=== PATIENT | female | born 1955 | race Caucasian/White ===

== ENCOUNTER 2017-07-04 11:39 | Emergency (ER) | payer OTHER, SELFPAY ==
[2017-07-04 11:40] VITALS: BP 136/66; PULSE 75; RESP 20; TEMP 37.3; O2SAT 91; BMI 23.8
--- NOTE | 2017-07-04 11:58 | HMH.EDGENADL ---
ED Disposition Clinical Impression: Left lower lobe pneumonia, Tobacco use, Lung nodule seen on imaging study Disposition: Home, Self-Care Condition on Discharge: Fair Additional Instructions: I discussed the underlying chest x-ray report with the patient and her daughter and she wanted to be treated at home. IMPRESSION: 1. Left lower lobe atelectasis and/or infiltrate 2. 10 mm left lower lobe nodular opacity which could be due to developing pulmonary nodule or nipple artifact. Consider follow-up with nipple markers. Considering the current clinical scenario we will start her on antibiotics for left lower, in addition to influenza prophylaxis because of her exposure to 1 of the sick grandchildren who was confirmed by test. She is to follow-up with her primary care physician Ed morin and 1-2 days. Return if she is not feeling better or worse. She will need 3-4 follow-up chest x-ray until until resolution or undergoes a CT scan for malignancy workup. 1- ceftin 2- z pack 3- tamiflu 4- alternate motrin and tylenol for body aches. 5- see ed in 1-2 days for a recheck. 6- return if not better or worse. 7- I gave thema copy of the CXR that needs follow up. 8- supportive care, rest and plenty of fluids. Prescriptions: Azithromycin [Zithromax 250mg tab] 250 mg PO DIRECTED #6 tab cefUROXime axetil [Ceftin 250mg Tablet] 500 mg PO BID #20 tab Oseltamivir Phosphate [Tamiflu 75mg Capsule] 75 mg PO BID #10 cap Referrals: Ed Morin PA [Primary Care Provider] - - Critical Care Critical Care Time: No Attestation: On , the high probability of a clinically significant, sudden or life threatening deterioration of the following system(s) required my full and direct attention, intervention and personal management. The time I documented below is in addition to time spent performing reported procedures but includes the following listed in this critical care notation. Medical Decision Making - Medical Records Medical records reviewed: Yes: I reviewed the patient's medical records. Vital Signs: 07/04/17 11:40 Temperature 99.1 F Temperature Source Oral Pulse Rate [Right Radial] 75 Respiratory Rate 20 Blood Pressure [Right Arm] 136/66 Blood Pressure Mean [Right Arm] 89 Blood Pressure Source [Right Arm] Automatic Cuff Blood Pressure Position [Right Arm] Supine 02 Sat by Pulse Oximetry 91 L Oxygen Delivery Method Room Air - Lab Data Lab results reviewed: Yes: I reviewed the patient's lab results. Lab Results 07/04/17 12:20: WBC 4.6 L, RBC 4.80, Hgb 14.6, Hct 44.0, MCV 91.6, MCH 30.4, MCHC 33.1, RDW 12.0, Plt Count 133 L, MPV 8.9, Neut % (Auto) 75.1, Lymph % (Auto) 11.7, [place] % (Auto) 11.1 H, Eos % (Auto) 0.6, Baso % (Auto) 1.4, Neut # (Auto) 3.5, Lymph # (Auto) 0.5 L, [place] # (Auto) 0.5, Eos # (Auto) 0.0, Baso # (Auto) 0.1 07/04/17 12:20: Sodium 140, Potassium 3.9, Chloride 107, Carbon Dioxide 28, Anion Gap 8.9, BUN 11, Creatinine 0.83, Estimated Creat Clear 54, Estimated GFR 69, Est GFR ( Amer) 84, Glucose 127 H, Calcium 8.7, Total Bilirubin 0.4, AST 25, ALT 38, Alkaline Phosphatase 133 H, Total Protein 7.4, Albumin 3.4, Globulin 4.0 H, Albumin/Globulin Ratio 0.9 L 07/04/17 12:20: Influenza Type A Ag Negative, Influenza Type B Ag Negative, Group A Strep Rapid Negative Result diagrams: 07/04/17 12:20 07/04/17 12:20 Orders (Tests/Meds): ED MEDICATIONS Discontinued Medications Generic Name Dose Route Start Last Admin Trade Name Nikitaq PRN Reason Stop Dose Admin Acetaminophen 500 mg 07/04/17 12:03 07/04/17 12:38 Tylenol 500mg Tablet PO 07/04/17 12:04 500 mg ONCE ONE Administration Sodium Chloride 1,000 mls @ 999 mls/hr 07/04/17 12:15 07/04/17 12:38 Sod Chloride 0.9% 1000ml Bag IV 07/04/17 13:15 999 mls/hr .Q1H1M LEONARD Administration Meclizine HCl 25 mg 07/04/17 12:03 07/04/17 12:38 Antivert 25mg Tablet PO 07/04/17 12:04 25 mg ONCE
--- NOTE | 2017-07-04 12:01 | ED_ITS ---
ED Disposition Clinical Impression: Left lower lobe pneumonia, Tobacco use, Lung nodule seen on imaging study Disposition: Home, Self-Care Condition on Discharge: Fair Additional Instructions: I discussed the underlying chest x-ray report with the patient and her daughter and she wanted to be treated at home. IMPRESSION: 1. Left lower lobe atelectasis and/or infiltrate 2. 10 mm left lower lobe nodular opacity which could be due to developing pulmonary nodule or nipple artifact. Consider follow-up with nipple markers. Considering the current clinical scenario we will start her on antibiotics for left lower, in addition to influenza prophylaxis because of her exposure to 1 of the sick grandchildren who was confirmed by test. She is to follow-up with her primary care physician Ed morin and 1-2 days. Return if she is not feeling better or worse. She will need 3-4 follow-up chest x-ray until until resolution or undergoes a CT scan for malignancy workup. 1- ceftin 2- z pack 3- tamiflu 4- alternate motrin and tylenol for body aches. 5- see ed in 1-2 days for a recheck. 6- return if not better or worse. 7- I gave thema copy of the CXR that needs follow up. 8- supportive care, rest and plenty of fluids. Prescriptions: Azithromycin [Zithromax 250mg tab] 250 mg PO DIRECTED #6 tab cefUROXime axetil [Ceftin 250mg Tablet] 500 mg PO BID #20 tab Oseltamivir Phosphate [Tamiflu 75mg Capsule] 75 mg PO BID #10 cap Referrals: Ed Morin PA [Primary Care Provider] - - Critical Care Critical Care Time: No Attestation: On , the high probability of a clinically significant, sudden or life threatening deterioration of the following system(s) required my full and direct attention, intervention and personal management. The time I documented below is in addition to time spent performing reported procedures but includes the following listed in this critical care notation. Medical Decision Making - Medical Records Medical records reviewed: Yes: I reviewed the patient's medical records. Vital Signs: 07/04/17 11:40 Temperature 99.1 F Temperature Source Oral Pulse Rate [Right Radial] 75 Respiratory Rate 20 Blood Pressure [Right Arm] 136/66 Blood Pressure Mean [Right Arm] 89 Blood Pressure Source [Right Arm] Automatic Cuff Blood Pressure Position [Right Arm] Supine 02 Sat by Pulse Oximetry 91 L Oxygen Delivery Method Room Air - Lab Data Lab results reviewed: Yes: I reviewed the patient's lab results. Lab Results 07/04/17 12:20: WBC 4.6 L, RBC 4.80, Hgb 14.6, Hct 44.0, MCV 91.6, MCH 30.4, MCHC 33.1, RDW 12.0, Plt Count 133 L, MPV 8.9, Neut % (Auto) 75.1, Lymph % (Auto ) 11.7, [place] % (Auto) 11.1 H, Eos % (Auto) 0.6, Baso % (Auto) 1.4, Neut # (Auto ) 3.5, Lymph # (Auto) 0.5 L, [place] # (Auto) 0.5, Eos # (Auto) 0.0, Baso # (Auto) 0.1 07/04/17 12:20: Sodium 140, Potassium 3.9, Chloride 107, Carbon Dioxide 28, Anion Gap 8.9, BUN 11, Creatinine 0.83, Estimated Creat Clear 54, Estimated GFR 69, Est GFR ( Amer) 84, Glucose 127 H, Calcium 8.7, Total Bilirubin 0.4, AST 25, ALT 38, Alkaline Phosphatase 133 H, Total Protein 7.4, Albumin 3.4, Globulin 4.0 H, Albumin/Globulin Ratio 0.9 L 07/04/17 12:20: Influenza Type A Ag Negative, Influenza Type B Ag Negative, Group A Strep Rapid Negative Result diagrams: 07/04/17 12:20 07/04/17 12:20 Orders (Tests/Meds): ED MEDICATIONS Disco
--- NOTE | 2017-07-04 12:03 | XR_ITS ---
XR chest 2V HISTORY: Dizziness, weakness, pneumonia ITS.REASON: dizziness ORDERING PHYSICIAN: Hellen Rose MD PATIENT AGE: 62 years COMPARISON: 02/14/2017 FINDINGS: The cardiomediastinal silhouette and pulmonary vascularity are within normal limits. Increased markings are present in the left lower lobe consistent with atelectasis and/or infiltrate. There is some nodularity noted in this region as well which could be due to developing nodule or overlying nipple artifact. Follow-up recommended.. No acute bony abnormalities. IMPRESSION: 1. Left lower lobe atelectasis and/or infiltrate 2. 10 mm left lower lobe nodular opacity which could be due to developing pulmonary nodule or nipple artifact. Consider follow-up with nipple markers.
--- NOTE | 2017-07-04 12:03 | CT_ITS ---
CT head/brain wo con HISTORY: ITS.REASON: dizziness ORDERING PHYSICIAN: Hellen Rose MD PATIENT AGE: 62 years COMPARISON: None TECHNIQUE: Axial images obtained without contrast. Brain and bone windows reviewed. FINDINGS: No midline shift, mass effect, intracranial hemorrhage, hydrocephalus, or extra-axial fluid collection is evident. The calvarium has an unremarkable appearance. No mastoid effusion. Mild mucosal thickening of the ethmoid sinuses. IMPRESSION: No acute intracranial findings.
[2017-07-04 12:42] LABS: Strep Scrn Group A (Rapid) Negative (Negative)
[2017-07-04 12:43] LABS: Basophils # 0.1 K/mm3 (0-0.2); Basophils % 1.4 % (0.1-2.0); Eosinophils % 0.6 % (0.1-12.0); Hemoglobin 14.6 g/dL (12.2-16.2); Lymphocytes # 0.5 K/mm3 (0.7-4.5); Lymphocytes % 11.7 K/mm3 (10-50); Mean Corpuscular HGB Conc 33.1 g/dL (31.8-35.4); Mean Corpuscular Hemoglobin 30.4 pg (27.0-31.2); Mean Corpuscular Volume 91.6 fl (81-99); Mean Platelet Volume 8.9 fl (7.4-10.4); Monocytes # 0.5 K/mm3 (0.1-1.0); Monocytes % 11.1 % (1.7-9.3); Neutrophils # 3.5 K/mm3 (1.8-7.8); Neutrophils % 75.1 % (37.0-80.0); Platelet Count 133 K/mm3 (142-424); White Blood Count 4.6 K/mm3 (4.8-10.8)
[2017-07-04 12:44] LABS: Alanine Aminotransferase 38 U/L (12-78); Albumin Level 3.4 gm/dL (3.4-5.0); Albumin/Globulin Ratio 0.9 (1.1-1.8); Alkaline Phosphatase 133 U/L (46-116); Anion Gap 8.9 mEq/L (5-15); Aspartate Amino Transferase 25 U/L (15-37); Bilirubin,Total 0.4 mg/dL (0.2-1.0); Blood Urea Nitrogen 11 mg/dL (7-18); Calcium 8.7 mg/dL (8.5-10.1); Carbon Dioxide 28 mmol/L (21.0-32.0); Chloride 107 mmol/L (98-107); Creatinine Clearance Estimated 54 mL/min (0-300); Creatinine,Serum 0.83 mg/dL (0.55-1.02); Estimated Glomerular Filt Rate 69 ml/min (>60); GFR (African American) 84 ML/MIN (>60); Potassium 3.9 mmoL/L (3.5-5.1); Sodium 140 mmol/L (136-145); Total Protein,Serum 7.4 gm/dL (6.4-8.2)
[2017-07-04 12:56] LABS: Glucose 127 mg/dL (74-106)
[2017-07-04 13:48] VITALS: BP 116/70; PULSE 85; RESP 22; TEMP 37; O2SAT 98
== END 2017-07-04 13:49 | disposition home or self-care (01) ==
PROVIDERS: Emergency Provider Emergency Medicine; PCP Physician Assistant
DX: J18.9 Pneumonia, unspecified organism (principal); F17.200 Nicotine dependence, unspecified, uncomplicated; R91.1 Solitary pulmonary nodule
CPT/HCPCS: 70450; 71046; 80053; 85025; 87275; 87276; 87430; 93005; 93041; 96365; 99284

== ENCOUNTER → 2017-08-02 09:16 | Outpatient (CLI) | payer OTHER, SELFPAY | PROVIDERS: PCP Physician Assistant; Visit Provider Physician Assistant ==

== ENCOUNTER → 2017-10-19 09:44 | Outpatient (CLI) | payer OTHER, SELFPAY ==
--- NOTE | 2017-10-19 09:45 | CI_ITS ---
Cerebrovascular Exam Indications: 433.10 Occlusion/stenosis of carotid artery without cerebral infarction. IMPRESSIONS 1. The bilateral vertebral arteries are patent with normal antegrade flow. 2. Study suggests less than 20% stenosis involving the right internal carotid artery. 3. Study suggests 20-49% stenosis involving the left internal carotid artery. No change from the study of 11-Aug-2016. Carotid duplex study. Complete study and Doppler flow study including spectral analysis, color and elias scale imaging. Location: Vascular laboratory. Patient status: Outpatient. Tables: Arterial flow: + +--------+--------+ Location V sys V ed + +--------+--------+ Right CCA - proximal 75.4cm/s 19.6cm/s + +--------+--------+ Right CCA - distal 67.6cm/s 20.4cm/s + +--------+--------+ Right ECA 155cm/s -------- + +--------+--------+ Right ICA - proximal 108cm/s 18.1cm/s + +--------+--------+ Right ICA - mid 60.5cm/s 14.1cm/s + +--------+--------+ Right ICA - distal 62.9cm/s 18.9cm/s + +--------+--------+ Right vertebral 36.1cm/s -------- + +--------+--------+ Left CCA - proximal 109cm/s 28.3cm/s + +--------+--------+ Left CCA - distal 106cm/s 29.9cm/s + +--------+--------+ Left ECA 163cm/s -------- + +--------+--------+ Left ICA - proximal 105cm/s 27.5cm/s + +--------+--------+ Left ICA - mid 128cm/s 24.4cm/s + +--------+--------+ Left ICA - distal 70.9cm/s 19.6cm/s + +--------+--------+ Left vertebral 44.6cm/s -------- + +--------+--------+ Velocity ratios: + + + + + + Right, V sys Right, V ed Left, V sys Left, V ed + + + + + + Max ICA/dist CCA 1.6 0.93 1.21 0.92 + + + + + + (Report amended ) Electronically signed by: Herminio Fregoso [id number]
== END ==
PROVIDERS: PCP Physician Assistant; Visit Provider Internal Medicine
DX: I73.9 Peripheral vascular disease, unspecified (principal); I25.10 Atherosclerotic heart disease of native coronary artery without angina pectoris
CPT/HCPCS: 93880

== ENCOUNTER → 2017-10-25 16:57 | Outpatient (CLI) | payer OTHER, SELFPAY | PROVIDERS: Visit Provider Nurse Practitioner Family | DX: Z79.899 Other long term (current) drug therapy (principal) | CPT/HCPCS: 80346 ==

== ENCOUNTER → 2017-10-25 17:27 | Outpatient (REF) | payer OTHER, SELFPAY ==
[2017-10-26 19:51] LABS: Amphetamine/Metha Screen,Urine Negative ng/mL (<1000); Barbiturates Screen,Urine Negative ng/mL (<200); Benzodiazepines Screen,Urine Positive ng/mL (200); Cannabinoid Screen,Urine Negative ng/mL (<50); Cocaine Screen,Urine Negative ng/g (<300); Methadone Screen,Urine Negative ng/mL (<300); Opiate Screen,Urine Negative ng/mL (<300); Phencyclidine Screen,Urine Negative ng/mL (<25)
[2017-11-14 13:03] LABS: Benzodiazepines POSITIVE
[2017-11-14 13:04] LABS: Alprazolam NEGATIVE; Clonazepam POSITIVE; Flurazepam NEGATIVE; Lorazepam NEGATIVE
[2017-11-14 13:05] LABS: Clonazepam Confirm 1296
[2017-11-14 13:08] LABS: Midazolam NEGATIVE; Temazepam NEGATIVE; Triazolam NEGATIVE
== END ==
LOC: LAB 17:27
PROVIDERS: Visit Provider Nurse Practitioner Family
DX: F41.9 Anxiety disorder, unspecified (principal); Z79.899 Other long term (current) drug therapy
CPT/HCPCS: 80305; 80346

== ENCOUNTER → 2018-01-12 13:26 | Outpatient (REF) | payer OTHER, SELFPAY ==
[2018-01-12 18:53] LABS: Amphetamine/Metha Screen,Urine Negative ng/mL (<1000); Barbiturates Screen,Urine Negative ng/mL (<200); Benzodiazepines Screen,Urine Negative ng/mL (<200); Cannabinoid Screen,Urine Negative ng/mL (<50); Cocaine Screen,Urine Negative ng/mL (<300); Methadone Screen,Urine Negative ng/mL (<300); Opiate Screen,Urine Negative ng/mL (<300); Phencyclidine Screen,Urine Negative ng/mL (<25)
== END ==
LOC: LAB 13:26
PROVIDERS: Visit Provider Nurse Practitioner Family
DX: Z79.899 Other long term (current) drug therapy (principal)
CPT/HCPCS: 80305

== ENCOUNTER → 2018-04-11 13:21 | Outpatient (CLI) | payer OTHER, SELFPAY ==
[2018-04-11 14:13] LABS: Amphetamine/Metha Screen,Urine Negative ng/mL (<1000); Barbiturates Screen,Urine Negative ng/mL (<200); Benzodiazepines Screen,Urine Negative ng/mL (<200); Cannabinoid Screen,Urine Negative ng/mL (<50); Cocaine Screen,Urine Negative ng/mL (<300); Methadone Screen,Urine Negative ng/mL (<300); Opiate Screen,Urine Negative ng/mL (<300); Phencyclidine Screen,Urine Negative ng/mL (<25)
== END ==
PROVIDERS: PCP Physician Assistant; Visit Provider Physician Assistant
DX: Z79.899 Other long term (current) drug therapy (principal)
CPT/HCPCS: 80305

== ENCOUNTER → 2018-05-22 11:48 | Outpatient (CLI) | payer OTHER, SELFPAY ==
[2018-05-22 14:17] LABS: Alanine Aminotransferase 22 U/L (12-78); Albumin Level 3.5 gm/dL (3.4-5.0); Alkaline Phosphatase 146 U/L (46-116); Anion Gap 12.9 mEq/L (5-15); Aspartate Amino Transferase 11 U/L (15-37); Bilirubin,Direct 0.1 mg/dL (0.0-0.2); Bilirubin,Indirect 0.2 mg/dL (0.0-0.9); Bilirubin,Total 0.3 mg/dL (0.2-1.0); Blood Urea Nitrogen 9 mg/dL (7-18); Calcium 9.5 mg/dL (8.5-10.1); Carbon Dioxide 29 mmol/L (21.0-32.0); Chloride 105 mmol/L (98-107); Chol/HDL Ratio 3.1 (1-3.5); Cholesterol 151 mg/dL (140-200); Creatine Kinase 53 U/L (26-192); Estimated Glomerular Filt Rate 72 ml/min (>60); GFR (African American) 88 ML/MIN (>60); Glucose 97 mg/dL (74-106); HDL Cholesterol 48 mg/dL (29-89); LDL Cholesterol 76 mg/dL (0-130); Potassium 4.9 mmoL/L (3.5-5.1); Sodium 142 mmol/L (136-145); Total Protein,Serum 7.3 gm/dL (6.4-8.2); Triglycerides 135 mg/dL (30-200); VLDL Cholesterol 27 mg/dL (0-40)
== END ==
PROVIDERS: Visit Provider Physician Assistant
DX: R91.1 Solitary pulmonary nodule (principal); E78.49 Other hyperlipidemia; F41.9 Anxiety disorder, unspecified; I10 Essential (primary) hypertension; I25.10 Atherosclerotic heart disease of native coronary artery without angina pectoris; I73.9 Peripheral vascular disease, unspecified; J43.9 Emphysema, unspecified; J44.1 Chronic obstructive pulmonary disease with (acute) exacerbation; M79.662 Pain in left lower leg; Z72.0 Tobacco use
CPT/HCPCS: 36415; 80048; 80061; 80076; 82550

== ENCOUNTER → 2018-12-18 12:46 | Outpatient (CLI) | payer OTHER, SELFPAY ==
--- NOTE | 2018-12-18 12:47 | CI_ITS ---
Cerebrovascular Exam Indications: 433.10 Occlusion/stenosis of carotid artery without cerebral infarction. IMPRESSIONS 1. The bilateral vertebral arteries are patent with normal antegrade flow. 2. Study suggests less than 20% stenosis involving the right internal carotid artery. 3. Study suggests 20-49% stenosis involving the left internal carotid artery. No change from the study of 19-Oct-2017. Carotid duplex study. Complete study and Doppler flow study including spectral analysis, color and elias scale imaging. Location: Vascular laboratory. Patient status: Outpatient. Tables: Arterial flow: + +--------+--------+ Location V sys V ed + +--------+--------+ Right CCA - proximal 79.4cm/s 13.4cm/s + +--------+--------+ Right CCA - distal 73.1cm/s 16.5cm/s + +--------+--------+ Right ECA 155cm/s -------- + +--------+--------+ Right ICA - proximal 97.4cm/s 23.6cm/s + +--------+--------+ Right ICA - mid 65.2cm/s 15.7cm/s + +--------+--------+ Right ICA - distal 67.6cm/s 20.4cm/s + +--------+--------+ Right vertebral 43.2cm/s -------- + +--------+--------+ Left CCA - proximal 117cm/s 25.9cm/s + +--------+--------+ Left CCA - distal 102cm/s 25.1cm/s + +--------+--------+ Left ECA 165cm/s -------- + +--------+--------+ Left ICA - proximal 101cm/s 26.7cm/s + +--------+--------+ Left ICA - mid 107cm/s 26.7cm/s + +--------+--------+ Left ICA - distal 91.9cm/s 27.5cm/s + +--------+--------+ Left vertebral 66cm/s -------- + +--------+--------+ Velocity ratios: + + + + + + Right, V sys Right, V ed Left, V sys Left, V ed + + + + + + Max ICA/dist CCA 1.33 1.43 1.05 1.1 + + + + + + (Report amended ) Electronically signed by: Herminio Fregoso [id number]
== END ==
PROVIDERS: PCP Physician Assistant; Visit Provider Internal Medicine
DX: I65.23 Occlusion and stenosis of bilateral carotid arteries (principal)
CPT/HCPCS: 93880

== ENCOUNTER → 2019-01-03 14:38 | Outpatient (CLI) | payer OTHER, SELFPAY ==
[2019-01-03 15:38] LABS: Anion Gap 12.6 mEq/L (5-15); Blood Urea Nitrogen 15 mg/dL (7-18); Calcium 9.9 mg/dL (8.5-10.1); Carbon Dioxide 30 mmol/L (21.0-32.0); Chloride 102 mmol/L (98-107); Creatinine,Serum 1.03 mg/dL (0.55-1.02); Estimated Glomerular Filt Rate 54 ml/min (>60); GFR (African American) 65 ML/MIN (>60); Glucose 100 mg/dL (74-106); Potassium 4.6 mmoL/L (3.5-5.1); Sodium 140 mmol/L (136-145)
== END ==
PROVIDERS: Visit Provider Internal Medicine Cardiovascular Disease
DX: I10 Essential (primary) hypertension (principal); E78.5 Hyperlipidemia, unspecified; F41.9 Anxiety disorder, unspecified; I25.10 Atherosclerotic heart disease of native coronary artery without angina pectoris; I73.9 Peripheral vascular disease, unspecified; J44.1 Chronic obstructive pulmonary disease with (acute) exacerbation; J44.9 Chronic obstructive pulmonary disease, unspecified; R91.1 Solitary pulmonary nodule; Z72.0 Tobacco use
CPT/HCPCS: 36415; 80048

== ENCOUNTER → 2019-01-21 14:51 | Outpatient (CLI) | payer OTHER, SELFPAY ==
--- NOTE | 2019-01-21 14:52 | US_ITS ---
PROCEDURE: US EXTREMITY LT LIMITED CLINICAL INDICATION: mass left forearm A palpable abnormality posterior left forearm COMPARISON: No exams were available for comparison FINDINGS: No sonographic abnormality detected. No cystic or solid lesion. IMPRESSION: Unremarkable ultrasound of the left forearm. If there is indeed a palpable abnormality then, MRI may be of further value. Dictated by: Herminio Fregoso MD 01/21/2019 16:09 Signed by: <Electronically signed by Herminio Fregoso MD in [place]> 01/21/2019 16:09
== END ==
PROVIDERS: PCP Emergency Medicine; Visit Provider Physician Assistant
DX: R22.32 Localized swelling, mass and lump, left upper limb (principal)
CPT/HCPCS: 76882

== ENCOUNTER → 2019-01-25 15:47 | Outpatient (CLI) | payer OTHER, SELFPAY ==
--- NOTE | 2019-01-25 15:48 | MR_ITS ---
PROCEDURE: MR FOREARM LT WO CON CLINICAL INDICATION: palable mass in left forearm COMPARISON: US EXTREMITY LT LIMITED from 01/21/2019 TECHNIQUE: Routine multiplanar multi echo sequences are performed without gadolinium enhancement. FINDINGS: No soft tissue masses. No abnormal bony lesions. No abnormal fluid collections. No subcutaneous lesions IMPRESSION: Negative MRI of the left forearm Dictated by: Herminio Fregoso MD 01/26/2019 13:28 Signed by: <Electronically signed by Herminio Fregoso MD in [place]> 01/26/2019 13:28
== END ==
PROVIDERS: PCP Physician Assistant; Visit Provider Physician Assistant
DX: R22.32 Localized swelling, mass and lump, left upper limb (principal)
CPT/HCPCS: 73218

== ENCOUNTER → 2019-05-08 10:47 | Outpatient (CLI) | payer OTHER, SELFPAY ==
--- NOTE | 2019-05-08 10:48 | CA_ITS ---
APPROVED REPORT EXAM: Comprehensive 2D, Doppler, and color-flow Echocardiogram Vp Human Resources: Lisette Luther RT(R) Ht: 5 ft 2 in Wt: 138lbs BSA: 1.63 BP: 136/88 mmHg Indications: COPD, Smoker, HTN, SOB, hyperlipidemia 2D Dimensions IVSd 0.78 cm F: 0.6-1.0 LVEF (Visual) 70.50 % PWd 0.68 cm F: 0.6 - 1.0 LVDd 3.21 cm F: 3.9 - 5.3 LVDs 1.97 cm F: 2.2 - 3.5 LVOT 1.88 cm (M/F) 1.5-2.5 M-Mode Dimensions LVDd 3.21 cm (3.5-5.7) LVDs 1.97 cm (3.5-5.7) IVSd 0.78 cm (0.6-1.1) PWd 0.68 cm (0.6-1.1) FS 38.60% LV Diastology E/A Ratio 0.72 Mitral Valve MV A Velocity 145.00 (40-130 cm/s) Left Ventricle Left atrium is mildly enlarged, left ventricle is normal size, mild concentric left ventricular hypertrophy, hyperdynamic left ventricular systolic function, visually estimated ejection fraction was 65% with no regional wall motion abnormality, grade 1 diastolic dysfunction seen without tissue Doppler evidence of raise left atrial pressure. Right Ventricle Right atrium and right ventricular normal size and contractility. Aortic Valve Aortic valve is minimally thickened and fibrosed. There is no aortic stenosis aortic insufficiency. Mitral Valve Mitral valve is grossly normal, there is mild mitral regurgitation. Tricuspid Valve Tricuspid valve is grossly normal, there is mild tricuspid regurgitation. Pulmonic Valve Pulmonic valve is poorly visualized. Great Vessels Aortic root is normal size. Pericardium No significant pericardial effusion noted Conclusion 1. Normal left ventricular size, mild concentric left ventricular hypertrophy, hyperdynamic left ventricular systolic function, visually estimated ejection fraction over 65% with no regional wall motion abnormality, grade 1 diastolic dysfunction seen without tissue Doppler evidence of raise left atrial pressure. 2. Mild mitral and tricuspid regurgitation. 3. No significant pericardial effusion noted. Electronically signed by : Lul Bird, 05/10/2019 13:37:25
--- NOTE | 2019-05-08 10:48 | CA_ITS ---
APPROVED REPORT Exam: Pharmacologic Technologist: steff brown, Ht: 5 ft 2 in Wt: 138 lbs BSA: 1.63 m2 HR: 106 bpm BP: 151/89 mmHg Indications: SOA Medical History Medications: Verapamil,,,,, Asa,,,,, Gabapentin,,,,, HCTZ,,,,, ClonAZEPAM,,,,, Lipitor,,,,, Albuterol,,,,, CloPIdogrel,,,,, BuspAR,,,,, BisOPROLOL,,,,, PaXIL,,,,, OmPERAZOLE,,,,, Allergies: No known drug allergies Cardiac Risk Factors: HTN, Hyperlipidemia, FHX of CAD, Smoking Stress Test Details Test: LEXISCAN HR Resting HR: 100 bpm Max Heart Rate (APMHR): 156 bpm Max HR Achieved: 123 bpm Target HR (85% APMHR): 132 bpm % of APMHR: 78 Recovery HR: 116 bpm BP Resting BP: 151/89 mmHg Max BP: 166/81 mmHg Recovery BP: 164.0/73.0 mmHg ECG Resting ECG: Sinus tach, borderline criteria for MEET Clinical Exercise duration: 04:05 min Highest Stage Achieved: Stress ECG Conclusion Symptoms: SOA, Nausea, MARQUES, Malasie. Rare PAC. No significant ST changes. Patient was given Aminophylline 100mg slow IV. Symptoms better to almost after the Aminophylline. Unremarkable Lexiscan Stress. Images reported seperately. Test Summary REST 08:24 . . 100 . 151/ 89 . . Stage 1 01:00 . . 119 . . . . Stage 2 01:00 . . 119 . 141/ 74 . . Stage 3 01:00 . . 117 . 150/ 64 . . Stage 4 01:00 . . 115 . 137/ 69 . . Stage 4 01:05 . . 115 . 164/ 73 . Stop exercise at 04:05 RECOVERY 01:00 . . 116 . . . . RECOVERY 02:00 . . 115 . 135/ 90 . . RECOVERY 03:00 . . 117 . 166/ 81 . . RECOVERY 04:00 . . 118 . 160/ 88 . . RECOVERY 05:00 . . 116 . 160/ 88 . . RECOVERY 06:00 . . 118 . 160/ 88 . . RECOVERY 07:00 . . 115 . 160/ 88 . . RECOVERY 08:00 . . 114 . 160/ 88 . . RECOVERY 08:14 . . 112 . 155/ 80 . . Electronically signed by : Lul Bird, 05/09/2019 15:53:16
--- NOTE | 2019-05-08 10:48 | NM_ITS ---
APPROVED REPORT Exam: Nuclear Stress Test Indication: SOB, Syncope, HTN, Tobacco use, Family history Patient Location: Outpatient Stress Tech: Mariana Feliz [place] Tech:Kellen Ramirez, ARRT, RT (R)(N) Ht: 5 ft 2 in Wt: 138 lbs Bra Size: 34B HR: 106 bpm BP: 151/89 mmHg BSA: 1.63 m2 BMI: 25.2 History: SOB, Syncope, HTN, Tobacco use, Family history Procedure: Patient received a 0.4 mg of intravenous Lexiscan, resting heart rate 106 bpm, resting blood pressure 151/89 mmHg, with Lexiscan maximum heart rate achived was 118 bpm which is Less than 85 % of the maximum predicted heart rate and blood pressure was 141/74 mmHg. With Lexiscan, patient denied any complaint of chest pain. Electrocardiogram Resting electro cardiogram showed sinus rhythm, with Lexiscan there is less than 1.[address] segment depression noted from the baseline EKG. The EKG portion of the Lexiscan Myoview is nondiagnostic. Cardiac Stress and Resting SPECT Images: Cardiac Stress and Resting SPECT images were obtained using technetium 99m Myoview 32.3 mCi stress and 10.40 mCi at rest. Gated SPECT with analysis of segmental wall motion and calculation of ejection fraction also done. Cardiac stress and resting SPECT images show uniform myocardial activity without segmental perfusion abnormality, computer derived ejection fraction is 65% with no regional wall motion abnormality, right ventricle is normal size and contractility. Conclusion: 1. The EKG portion of the Lexiscan Myoview is nondiagnostic. 2. No scintigraphic evidence of reversible ischemia seen, computer derived ejection fraction is 65% with no regional wall motion abnormality, right ventricle is normal size and contractility. 3. Normal Lexiscan Myoview study. Electronically signed by : Lul Bird, 05/09/2019 15:55:26
--- NOTE | 2019-05-08 12:44 | HMH.ITSHM ---
Current Home Medications as stated by this patient Johanny Hurst or sales utility representative. []VERAPAMIL GABAENTIN CLOPIDOGREL CLONAZEPAM BISOPROLOL ATORVASTATIN ALBUTEROL TRIAM/HCTZ PAXIL OMEPRAZOLE BUSPAR ASA
== END ==
PROVIDERS: PCP Physician Assistant; Visit Provider Urology
DX: I25.10 Atherosclerotic heart disease of native coronary artery without angina pectoris (principal); R00.0 Tachycardia, unspecified; R06.02 Shortness of breath; I10 Essential (primary) hypertension
CPT/HCPCS: 78452; 93017; 93306; A9502; J2785

== ENCOUNTER → 2019-10-02 16:51 | Outpatient (CLI) | payer MEDICARE, MEDICAID, SELFPAY ==
[2019-10-02 17:57] LABS: Basophils # 0.1 K/mm3 (0-0.2); Basophils % 1.2 % (0.1-2.0); Eosinophils # 0.3 K/mm3 (0.0-0.4); Eosinophils % 3.5 % (0.1-12.0); Hematocrit 45.6 % (37.0-47.0); Lymphocytes # 1.9 K/mm3 (0.7-4.5); Lymphocytes % 23.6 % (10-50); Mean Corpuscular HGB Conc 32.8 g/dL (31.8-35.4); Mean Corpuscular Hemoglobin 29.4 pg (27.0-31.2); Mean Corpuscular Volume 89.6 fl (81-99); Mean Platelet Volume 9.9 fl (7.4-10.4); Monocytes # 0.5 K/mm3 (0.1-1.0); Neutrophils # 5.2 K/mm3 (1.8-7.8); Neutrophils % 65.7 % (37.0-80.0); Platelet Count 216 K/mm3 (142-424); Red Cell Distribution Width 13.4 % (11.5-17.5)
[2019-10-02 17:59] LABS: Chloride 107 mmol/L (98-107); Sodium 139 mmol/L (136-145)
[2019-10-02 18:01] LABS: Alanine Aminotransferase 23 U/L (12-78); Alkaline Phosphatase 120 U/L (38-126); Aspartate Amino Transferase 27 U/L (14-36); Bilirubin,Total 0.5 mg/dl (0.2-1.3); Blood Urea Nitrogen 15 mg/dl (7-17); Estimated Glomerular Filt Rate 84 ml/min (>60); GFR (African American) 102 ML/MIN (>60)
[2019-10-02 18:02] LABS: Albumin/Globulin Ratio 1.3 (1.1-1.8); Calcium 9.6 mg/dl (8.4-10.2); Carbon Dioxide 22 mmol/L (22.0-30.0); Chol/HDL Ratio 2.3 (1-3.5); Cholesterol 153 mg/dl (140-200); Glucose 107 mg/dl (74-100); HDL Cholesterol 67 mg/dl (40-60); Triglycerides 123 mg/dl (30-150); VLDL Cholesterol 25 mg/dL (0-40)
[2019-10-02 18:14] LABS: Direct LDL Cholesterol 89.94 mg/dL (100-129)
[2019-10-02 18:20] LABS: T4 (Thyroxine) 13.3 ug/dl (5.53-11.0)
[2019-10-02 18:33] LABS: Thyroid Stimulating Hormone 1.96 uIU/mL (0.465-4.68)
[2019-10-04 09:24] LABS: Vitamin D 25 Hydroxy 16.8 ng/mL (30.0-100.0)
== END ==
LOC: LAB 16:52 → LAB.DROPOF 10-03 08:11
PROVIDERS: Visit Provider Physician Assistant
DX: I10 Essential (primary) hypertension (principal); E55.9 Vitamin D deficiency, unspecified
CPT/HCPCS: 80053; 80061; 82652; 84436; 84443; 85025

== ENCOUNTER → 2020-02-20 08:58 | Outpatient (CLI) | payer MEDICARE, MEDICAID, SELFPAY ==
--- NOTE | 2020-02-20 | CA_ITS ---
APPROVED REPORT Shuttle Van Driver: JOHN Laterality: Bilateral Indications: DEVYN Risk Factors Hypertension: Hyperlipidemia Smoking Doppler Spectral Velocity Analysis ECA (R) 168.50/18.10 cm/s ECA (L) 160.00/24.50 cm/s dICA (R) 92.50/25.00 cm/s dICA (L) 87.40/26.50 cm/s Bianka (R) 79.90/24.10 cm/s Bianka (L) 121.70/22.60 cm/s pICA (R) 122.30/32.70 cm/s pICA (L) 133.50/23.60 cm/s dCCA (R) 100.20/17.30 cm/s dCCA (L) 107.00/24.50 cm/s pCCA (R) 125.00/22.40 cm/s pCCA (L) 109.90/19.60 cm/s Vert (R) 32.20/7.50 cm/s Vert (L) 69.70/13.70 cm/s ICA/CCA 1.22 ICA/CCA 1.25 Findings Duplex evaluation demonstrates stenosis of the right proximal internal carotid artery <20% with PSV <140 cm/sec, EDV <100 cm/sec, and IC/CC Ratio <4.0. Duplex evaluation demonstrates stenosis of the left proximal internal carotid artery in the range of 20-49%(upper end of range) with PSV <140 cm/sec, EDV <100 cm/sec, and IC/CC Ratio <4.0. Conclusion Duplex evaluation demonstrates stenosis of the right proximal internal carotid artery <20% with PSV <140 cm/sec, EDV <100 cm/sec, and IC/CC Ratio <4.0. Duplex evaluation demonstrates stenosis of the left proximal internal carotid artery in the range of 20-49%(upper end of range) with PSV <140 cm/sec, EDV <100 cm/sec, and IC/CC Ratio <4.0. Electronically signed by : Herminio Fregoso MD 02/20/2020 16:09:25
== END ==
PROVIDERS: PCP Physician Assistant; Visit Provider Urology
DX: I65.23 Occlusion and stenosis of bilateral carotid arteries (principal)
CPT/HCPCS: 93880

== ENCOUNTER → 2020-03-13 18:40 | Outpatient (CLI) | payer MEDICARE, MEDICAID, SELFPAY | PROVIDERS: Visit Provider Emergency Medicine | DX: N39.0 Urinary tract infection, site not specified (principal) | CPT/HCPCS: 87086; 87088; 87186 ==

== ENCOUNTER → 2020-04-13 11:01 | Outpatient (CLI) | payer MEDICARE, MEDICAID, SELFPAY ==
--- NOTE | 2020-04-13 11:01 | US_ITS ---
PROCEDURE: US TRANSVAGINAL CLINICAL INDICATION: RLQ/pelvic pain COMPARISON: No exams were available for comparison FINDINGS: The uterus is 4.2 x 2 cm. Combined endometrial thickness is 2 mm. No uterine mass evident. The right ovary is 16 x 10 mm. Left ovary is 15 x 13 mm. No adnexal mass. No cul-de-sac fluid. IMPRESSION: Negative pelvic ultrasound Dictated by: Herminio Fregoso MD 04/13/2020 19:24 Herminio Fregoso MD in [place] 04/13/2020 19:24
== END ==
PROVIDERS: PCP Physician Assistant; Visit Provider Physician Assistant
DX: R10.2 Pelvic and perineal pain (principal)
CPT/HCPCS: 76830

== ENCOUNTER → 2020-08-24 12:51 | Outpatient (CLI) | payer MEDICARE, MEDICAID, SELFPAY ==
--- NOTE | 2020-08-24 | CA_ITS ---
APPROVED REPORT It Quality Analyst: OLLIE Laterality: Bilateral Study Quality: Good Risk Factors Hypertension: Smoking Doppler Spectral Velocity Analysis ECA (R) 170.00/21.40 cm/s ECA (L) 180.10/34.70 cm/s dICA (R) 80.50/22.30 cm/s dICA (L) 94.40/19.30 cm/s Bianka (R) 108.00/24.60 cm/s Bianka (L) 90.50/21.20 cm/s pICA (R) 113.00/27.70 cm/s pICA (L) 138.70/22.20 cm/s dCCA (R) 92.80/13.50 cm/s dCCA (L) 103.70/20.60 cm/s pCCA (R) 93.50/12.00 cm/s pCCA (L) 130.20/22.30 cm/s Vert (R) 48.00/14.60 cm/s Vert (L) 90.50/27.00 cm/s ICA/CCA 1.22 ICA/CCA 1.34 Findings Duplex evaluation demonstrates stenosis of the right proximal internal carotid artery <20% with PSV <140 cm/sec, EDV <100 cm/sec, and IC/CC Ratio <4.0.Duplex evaluation demonstrates stenosis of the left proximal internal carotid artery in the range of 20-49% with PSV <140 cm/sec, EDV <100 cm/sec, and IC/CC Ratio <4.0. Bilateral vertebral arteries displayed antegrade flow. Conclusion Duplex evaluation demonstrates stenosis of the right proximal internal carotid artery <20% with PSV <140 cm/sec, EDV <100 cm/sec, and IC/CC Ratio <4.0.Duplex evaluation demonstrates stenosis of the left proximal internal carotid artery in the range of 20-49% with PSV <140 cm/sec, EDV <100 cm/sec, and IC/CC Ratio <4.0. Bilateral vertebral arteries displayed antegrade flow. Electronically signed by : Herminio Fregoso MD 08/24/2020 15:58:49
== END ==
PROVIDERS: PCP Physician Assistant; Visit Provider Urology
DX: I65.23 Occlusion and stenosis of bilateral carotid arteries (principal)
CPT/HCPCS: 93880

== ENCOUNTER 2020-08-28 04:27 | Emergency (ER) | payer MEDICARE, MEDICAID, SELFPAY ==
[2020-08-28 04:48] VITALS: BP 207/146; PULSE 98; RESP 18; TEMP 36.7; O2SAT 95; BMI 24.1
--- NOTE | 2020-08-28 04:55 | CT_ITS ---
PROCEDURE: CT ABDOMEN PELVIS W CON CLINICAL INDICATION: abdominal pain Cramping abdominal pain in the mid lower abdomen COMPARISON: CT ABDPELW/O CT ABD PELVIS W/O CONTRAST from 11/27/2014 TECHNIQUE: IV Contrast: 75ML Isovue 370 Oral Contrast None Axial images obtained with sagittal and coronal reformats. All CT scans at the facility use one or more dose reduction, viz: automated exposure control, ma/kV adjustment per patient size (including targeted exams where dose is matched to indication, i.e. head), or iterative reconstruction technique. FINDINGS: LOWER THORAX: There are atelectatic changes in the lingula and right middle lobe. ABDOMEN & PELVIS: Liver, gallbladder, spleen, adrenal glands, and pancreas has an unremarkable appearance. The right kidney is unremarkable. There is a 3 mm stone in the left distal ureter at the ureterovesical junction. There is mild to moderate dilatation of the left renal pelvis and ureter. Small amount fluid is present in the perinephric region on the left with mild stranding of the fat. The left kidney has an edematous appearance. Unremarkable appendix. There is colonic diverticulosis. No evidence of diverticulitis. Mild amount of retained colonic feces. Bilateral iliac artery stents are noted. No acute bony findings. IMPRESSION: 1. 3 mm left ureterovesical junction stone with left-sided obstructive uropathy. The left kidney appears edematous with a small amount of perinephric fluid and stranding of the fat which could be related to superimposed infection. 2. Colonic diverticulosis without diverticulitis Dictated by: Herminio Fregoso MD 08/28/2020 06:19 Herminio Fergoso MD in [facility] 08/28/2020 06:19
[2020-08-28 05:00] VITALS: BP 194/96; PULSE 100; O2SAT 94
[2020-08-28 05:15] VITALS: PULSE 96; O2SAT 94
[2020-08-28 05:23] LABS: Basophils # 0.1 K/mm3 (0-0.2); Eosinophils # 0.3 K/mm3 (0.0-0.4); Eosinophils % 2.5 % (0.1-12.0); Hematocrit 47.4 % (37.0-47.0); Hemoglobin 15.8 g/dL (12.2-16.2); Lymphocytes # 1.9 K/mm3 (0.7-4.5); Lymphocytes % 17.6 % (10-50); Mean Corpuscular HGB Conc 33.3 g/dL (31.8-35.4); Mean Corpuscular Hemoglobin 30.2 pg (27.0-31.2); Mean Corpuscular Volume 90.8 fl (81-99); Mean Platelet Volume 8.5 fl (7.4-10.4); Monocytes # 0.6 K/mm3 (0.1-1.0); Neutrophils # 7.6 K/mm3 (1.8-7.8); Neutrophils % 72.8 % (37.0-80.0); Platelet Count 227 K/mm3 (142-424); Red Blood Count 5.22 M/mm3 (4.20-5.40); Red Cell Distribution Width 12.3 % (11.5-17.5); White Blood Count 10.5 K/mm3 (4.8-10.8)
[2020-08-28 05:29] LABS: Alanine Aminotransferase 19 U/L (12-78); Albumin Level 4.3 g/dl (3.5-5.0); Alkaline Phosphatase 128 U/L (38-126); Amylase 45 U/L (30-110); Aspartate Amino Transferase 24 U/L (14-36); Bilirubin,Indirect 0.4 mg/dL (0.0-0.9); Bilirubin,Total 0.4 mg/dl (0.2-1.3); Bilirubin,Unconjugated 0.4 mg/dL (0.0-1.1); Blood Urea Nitrogen 13 mg/dl (7-17); Calcium 9.7 mg/dl (8.4-10.2); Carbon Dioxide 22 mmol/L (22.0-30.0); Chloride 108 mmol/L (98-107); Creatinine Clearance Estimated 52 mL/min (50-200); Estimated Glomerular Filt Rate 63 ml/min (>60); GFR (African American) 76 ML/MIN (>60); Glucose 128 mg/dl (74-100); Lipase 51 U/L (23-300); Sodium 139 mmol/L (136-145); Total Protein,Serum 7.6 g/dl (6.3-8.2)
[2020-08-28 05:30] VITALS: BP 182/99; PULSE 98; O2SAT 95
[2020-08-28 05:36] LABS: C-Reactive Protein 2.7 mg/L (0-4)
[2020-08-28 05:46] LABS: Erythrocyte Sedimentation Rate 17 mm/hr (0-30)
[2020-08-28 05:48] LABS: Procalcitonin 0.053 ng/mL (0.0-2.0)
[2020-08-28 06:30] VITALS: BP 171/77; PULSE 94; RESP 17; O2SAT 96
[2020-08-28 06:38] LABS: Microscopic, Urine URINE MICROSCOPIC (MICROSCOPIC)
--- NOTE | 2020-08-28 06:50 | HMH.EDNVD ---
ED Disposition Clinical Impression: Renal colic on left side, Anxiety HTN (hypertension) Qualifiers: Hypertension type: essential hypertension Qualified Code(s): I10 - Essential (primary) hypertension Disposition: Home, Self-Care Condition on Discharge: Good Instructions: DI for Kidney Stones Additional Instructions: fluids and see pcp and urology for follow up Prescriptions: Tamsulosin HCl [Flomax 0.4mg capsule] 0.4 mg PO HS #10 cap Transmission Status: Pending to [facility] Referrals: Stephy Morin PA [Primary Care Provider] - Danny Cain MD [Staff Physician] - - Critical Care Critical Care Time: No Attestation: On 08/28/20, the high probability of a clinically significant, sudden or life threatening deterioration of the following system(s) required my full and direct attention, intervention and personal management. The time I documented below is in addition to time spent performing reported procedures but includes the following listed in this critical care notation. Medical Decision Making - Medical Records Medical records reviewed: Yes: I reviewed the patient's medical records. - Aquilino Inquiry Pt receiving controlled substance: No Vital Signs: 08/28/20 04:48 08/28/20 05:00 08/28/20 05:15 Temperature 98.0 F Temperature Source Oral Pulse Rate 100 H 96 H Pulse Rate [Right Brachial] 98 H Respiratory Rate 18 Blood Pressure 194/96 H Blood Pressure [Right Arm] 207/146 H Blood Pressure Mean 149 Blood Pressure Mean [Right Arm] 166 Blood Pressure Source [Right Arm] Automatic Cuff Blood Pressure Position [Right Arm] Sitting 02 Sat by Pulse Oximetry 95 94 L 94 L Oxygen Delivery Method Room Air 08/28/20 05:30 08/28/20 06:30 Temperature Temperature Source Pulse Rate 98 H 94 H Pulse Rate [Right Brachial] Respiratory Rate 17 Blood Pressure 182/99 H 171/77 H Blood Pressure [Right Arm] Blood Pressure Mean 126 108 Blood Pressure Mean [Right Arm] Blood Pressure Source [Right Arm] Blood Pressure Position [Right Arm] 02 Sat by Pulse Oximetry 95 96 Oxygen Delivery Method - Lab Data Lab results reviewed: Yes: I reviewed the patient's lab results. Lab Results 08/28/20 04:50: WBC 10.5, RBC 5.22, Hgb 15.8, Hct 47.4 H, MCV 90.8, MCH 30.2, MCHC 33.3, RDW 12.3, Plt Count 227, MPV 8.5, Neut % (Auto) 72.8, Lymph % (Auto) 17.6, [place] % (Auto) 6.0, Eos % (Auto) 2.5, Baso % (Auto) 1.0, Neut # (Auto) 7.6, Lymph # (Auto) 1.9, [place] # (Auto) 0.6, Eos # (Auto) 0.3, Baso # (Auto) 0.1, ESR 17 08/28/20 04:50: Sodium 139, Potassium 4.0, Chloride 108 H, Carbon Dioxide 22, Anion Gap 13.0, BUN 13, Creatinine 0.90, Estimated Creat Clear 52, Estimated GFR 63, Est GFR ( Amer) 76, Glucose 128 H, Calcium 9.7, Total Bilirubin 0.4, Direct Bilirubin 0.0, Conjugated Bilirubin 0.0, Indirect Bilirubin 0.4, Unconjugated Bilirubin 0.4, AST 24, ALT 19, Alkaline Phosphatase 128 H, C-Reactive Protein 2.7, Total Protein 7.6, Albumin 4.3, Amylase 45, Lipase 51, Procalcitonin 0.053 08/28/20 04:50: Lactate 1.0 08/28/20 05:30: Urine Color Yellow, Urine Appearance Sl cloudy, Urine pH 6.5, Ur Specific [place] <= 1.005, Urine Protein Trace, Urine Glucose (UA) Negative, Urine Ketones Negative, Urine Blood 3+, Urine Nitrate Negative, Urine Bilirubin Negative, Urine Urobilinogen 0.2, Ur Leukocyte Esterase Trace, Urine RBC 10-20, Urine WBC 3-5, Ur Squamous Epith Cells Occasional, Urine Bacteria 1+ Result diagrams: 08/28/20 04:50 08/28/20 04:50 Orders (Tests/Meds): ED MEDICATIONS Generic Name Dose Route Start Last Admin Trade Name Freq PRN Reason Stop Dose Admin Sodium Chloride 1,000 mls @ 999 mls/hr 08/28/20 05:00 08/28/20 05:01 Sod Chlor 0.9% 1000ml Bag IV 08/28/20 06:00 999 mls/hr .[id number] LEONARD Administration Discontinued Medications Generic Name Dose Route Start Last Admin Trade Name Freq PRN Reason Stop Dose Admin Iopamidol 75 ml 08/28/20 05:58 08/28/
[2020-08-28 07:03] LABS: Appearance,Urine SL CLOUDY (Clear); Bilirubin,Urine Negative (Negative); Blood, Urine 3+ (Negative); Color,Urine YELLOW (Yellow); Glucose,Urine (UA) Negative (Negative); Ketones,Urine Negative (Negative); Leukocyte Esterase,Urine TRACE (Negative); Nitrate,Urine Negative (Negative); PH,Urine 6.5 (5.0-8.5); Protein,Urine TRACE (Negative); Specific Gravity, Urine <= 1.005 (1.005-1.030); Urobilinogen,Urine 0.2 EU/dl (0.2)
[2020-08-28 07:09] LABS: Bacteria,Urine 1+ /lpf; Squamous Epithelial Cell,Urine Occasional #/hpf (0-5)
[2020-08-28 07:21] VITALS: BP 171/77; PULSE 94; RESP 16; TEMP 36.6; O2SAT 96
== END 2020-08-28 07:42 | disposition home or self-care (01) ==
PROVIDERS: Emergency Provider Emergency Medicine; PCP Physician Assistant
DX: N23 Unspecified renal colic (principal); I10 Essential (primary) hypertension; F41.8 Other specified anxiety disorders; J44.9 Chronic obstructive pulmonary disease, unspecified; I25.10 Atherosclerotic heart disease of native coronary artery without angina pectoris; E78.5 Hyperlipidemia, unspecified; Z79.899 Other long term (current) drug therapy
CPT/HCPCS: 74177; 80048; 80076; 81001; 82150; 83605; 83690; 84145; 85025; 85651; 86140; 87040; 87086; 96365; 99283; Q9967

== ENCOUNTER 2021-04-30 16:10 | Emergency (ER) | payer MEDICARE, MEDICAID, SELFPAY ==
[2021-04-30] VITALS (8 sets, daily range): BP systolic 175–213; BP diastolic 91–109; PULSE 79–99; RESP 15–33; TEMP 36.5–37; O2SAT 92–98; BMI 21.9
--- NOTE | 2021-04-30 16:08 | ECG_ITS ---
APPROVED REPORT Exam: Resting ECG HR:101 bpm ECG Measurements Heart Rate [address] 136 P 84 QRSd 76 QRS 85 QT 360 T 74 QTc 466 Conclusion Sinus tachycardia Right atrial enlargement Borderline ECG Electronically signed by : Edgard Dasilva MD 05/01/2021 10:02:05
--- NOTE | 2021-04-30 16:16 | HMH.EDGENADL ---
ED Disposition Clinical Impression: Anxiety state, Uncontrolled hypertension Disposition: Home, Self-Care Condition on Discharge: Good Additional Instructions: Take your medications as prescribed. Call your primary care provider on Monday to be seen as soon as possible. Return to the emergency department if symptoms worsen. Referrals: Provider,Referral, [Primary Care Provider] - - Critical Care Critical Care Time: No Attestation: On , the high probability of a clinically significant, sudden or life threatening deterioration of the following system(s) required my full and direct attention, intervention and personal management. The time I documented below is in addition to time spent performing reported procedures but includes the following listed in this critical care notation. Medical Decision Making - Aquilino Inquiry Pt receiving controlled substance: Yes Aquilino was queried for this patient: Yes Risks and benefits of using a controlled substance: were discussed with pt by me Comment: Filled a 30-day supply for Ativan on 04/09/2021. Vital Signs: 04/30/21 16:11 04/30/21 16:36 04/30/21 16:56 Temperature 97.7 F Temperature Source Oral Pulse Rate 92 H 90 Pulse Rate [Apical] 94 H Respiratory Rate 20 24 24 Blood Pressure 207/102 H 202/109 H Blood Pressure [Left Arm] 213/104 H Blood Pressure Mean [Left Arm] 140 Blood Pressure Source [Left Arm] Automatic Cuff Blood Pressure Position [Left Arm] Sitting 02 Sat by Pulse Oximetry 95 96 96 Oxygen Delivery Method Room Air 04/30/21 17:00 04/30/21 17:19 04/30/21 17:30 Temperature Temperature Source Pulse Rate 91 H 85 83 Pulse Rate [Apical] Respiratory Rate 33 H 23 20 Blood Pressure 175/96 H 197/101 H 200/94 H Blood Pressure [Left Arm] Blood Pressure Mean [Left Arm] Blood Pressure Source [Left Arm] Blood Pressure Position [Left Arm] 02 Sat by Pulse Oximetry 95 94 L 92 L Oxygen Delivery Method 04/30/21 18:00 Temperature Temperature Source Pulse Rate 79 Pulse Rate [Apical] Respiratory Rate 15 Blood Pressure 184/91 H Blood Pressure [Left Arm] Blood Pressure Mean [Left Arm] Blood Pressure Source [Left Arm] Blood Pressure Position [Left Arm] 02 Sat by Pulse Oximetry 95 Oxygen Delivery Method - Lab Data Lab Results 04/30/21 16:25: WBC 6.9, RBC 5.36, Hgb 16.0, Hct 46.7, MCV 87.1, MCH 29.8, MCHC 34.2, RDW 13.5, Plt Count 241, MPV 9.2, Neut % (Auto) 66.3, Lymph % (Auto) 24.4, [place] % (Auto) 5.2, Eos % (Auto) 2.9, Baso % (Auto) 1.1, Neut # (Auto) 4.6, Lymph # (Auto) 1.7, [place] # (Auto) 0.4, Eos # (Auto) 0.2, Baso # (Auto) 0.1 04/30/21 16:25: Sodium 142, Potassium 4.0, Chloride 110 H, Carbon Dioxide 25, Anion Gap 11.0, BUN 13, Creatinine 0.70, Estimated Creat Clear 48, Estimated GFR 84, Est GFR ( Amer) 101, Glucose 132 H, Calcium 9.3, Total Bilirubin 0.4, AST 24, ALT 12, Alkaline Phosphatase 125, Troponin I < 0.01, Total Protein 7.3, Albumin 4.2, Globulin 3.1, Albumin/Globulin Ratio 1.4 Result diagrams: 04/30/21 16:25 04/30/21 16:25 Orders (Tests/Meds): ED MEDICATIONS Generic Name Dose Route Start Last Admin Trade Name Freq PRN Reason Stop Dose Admin Sodium Chloride 10 ml 04/30/21 16:42 04/30/21 17:20 Sodium Chloride 0.9% 10ml Vial IV 05/30/21 16:41 10 ml NEEDED PRN Administration to Dilute Lorazepam inj Discontinued Medications Generic Name Dose Route Start Last Admin Trade Name Freq PRN Reason Stop Dose Admin Lorazepam 1 mg 04/30/21 16:42 04/30/21 17:20 Lorazepam 2mg/Ml Vial IV 04/30/21 16:43 1 mg ONCE ONE Administration Metoprolol Tartrate 5 mg 04/30/21 16:42 04/30/21 17:25 Metoprolol Tartrate 5mg/5ml Vial IV 04/30/21 16:43 5 mg ONCE ONE Administration ORDERS Category Date Time Status Troponin I Q3H Lab 04/30/21 19:30 Ordered Troponin I Q3H Lab 04/30/21 22:30 Ordered - CT Data CT Scan: Head Time Received: 17:[address] Revie
--- NOTE | 2021-04-30 16:27 | CT_ITS ---
PROCEDURE INFORMATION: Exam: CT Head Without Contrast Exam date and time: 04/30/2021 4:27 PM Age: 65 years old Clinical indication: Dizziness; Additional info: Dizzy TECHNIQUE: Imaging protocol: Computed tomography of the head without contrast. Radiation optimization: All CT scans at this facility use at least one of these dose optimization techniques: automated exposure control; mA and/or kV adjustment per patient size (includes targeted exams where dose is matched to clinical indication); or iterative reconstruction. COMPARISON: CT HEAD/BRAIN WO CON 02/25/2019 6:55 PM FINDINGS: Brain: Mild non-specific white matter hypoattenuation is probably due to chronic small vessel ischemia. No mass effect. No intracranial hemorrhage. No CT evidence of acute cortical infarct. Cerebral ventricles: No ventriculomegaly. Paranasal sinuses: Visualized sinuses are unremarkable. No fluid levels. Mastoid air cells: Visualized mastoid air cells are well aerated. Bones/joints: Unremarkable. No acute fracture. Soft tissues: Unremarkable. IMPRESSION: No acute intracranial pathology
[2021-04-30 16:47] LABS: Basophils # 0.1 K/mm3 (0-0.2); Basophils % 1.1 % (0.1-2.0); Eosinophils # 0.2 K/mm3 (0.0-0.4); Eosinophils % 2.9 % (0.1-12.0); Hematocrit 46.7 % (37.0-47.0); Lymphocytes # 1.7 K/mm3 (0.7-4.5); Lymphocytes % 24.4 % (10-50); Mean Corpuscular HGB Conc 34.2 g/dL (31.8-35.4); Mean Corpuscular Hemoglobin 29.8 pg (27.0-31.2); Mean Corpuscular Volume 87.1 fl (81-99); Mean Platelet Volume 9.2 fl (7.4-10.4); Monocytes # 0.4 K/mm3 (0.1-1.0); Monocytes % 5.2 % (1.7-9.3); Neutrophils # 4.6 K/mm3 (1.8-7.8); Neutrophils % 66.3 % (37.0-80.0); Platelet Count 241 K/mm3 (142-424); Red Blood Count 5.36 M/mm3 (4.20-5.40); Red Cell Distribution Width 13.5 % (11.5-17.5); White Blood Count 6.9 K/mm3 (4.8-10.8)
[2021-04-30 16:48] LABS: Chloride 110 mmol/L (98-107); Sodium 142 mmol/L (136-145)
[2021-04-30 16:51] LABS: Alanine Aminotransferase 12 U/L (12-78); Albumin Level 4.2 g/dl (3.5-5.0); Albumin/Globulin Ratio 1.4 (1.1-1.8); Alkaline Phosphatase 125 U/L (38-126); Aspartate Amino Transferase 24 U/L (14-36); Bilirubin,Total 0.4 mg/dl (0.2-1.3); Blood Urea Nitrogen 13 mg/dl (7-17); Carbon Dioxide 25 mmol/L (22.0-30.0); Creatinine Clearance Estimated 48 mL/min (50-200); Estimated Glomerular Filt Rate 84 ml/min (>60); GFR (African American) 101 ML/MIN (>60); Globulin 3.1 g/dL (1.3-3.2); Total Protein,Serum 7.3 g/dl (6.3-8.2)
[2021-04-30 16:52] LABS: Calcium 9.3 mg/dl (8.4-10.2); Glucose 132 mg/dl (74-100)
--- NOTE | 2021-04-30 16:53 | PC.NURSE ---
Pt with rad
[2021-04-30 17:12] LABS: Troponin I < 0.01 ng/ml (0.00-0.034)
== END 2021-04-30 18:35 | disposition home or self-care (01) ==
PROVIDERS: Emergency Provider Emergency Medicine
DX: F41.9 Anxiety disorder, unspecified (principal); I10 Essential (primary) hypertension; J44.9 Chronic obstructive pulmonary disease, unspecified; E78.5 Hyperlipidemia, unspecified; I25.10 Atherosclerotic heart disease of native coronary artery without angina pectoris; Z79.899 Other long term (current) drug therapy
CPT/HCPCS: 70450; 80053; 84484; 85025; 93005; 96374; 99283

== ENCOUNTER → 2021-05-07 13:23 | Outpatient (CLI) | payer MEDICARE, MEDICAID, SELFPAY ==
[2021-05-07 14:37] LABS: Barbiturates Screen,Urine Negative ng/ml (<200)
[2021-05-07 14:38] LABS: Benzodiazepines Screen,Urine Negative ng/ml (<200)
[2021-05-07 14:39] LABS: Amphetamine/Metha Screen,Urine Negative ng/ml (<1000)
[2021-05-07 14:42] LABS: Cannabinoid Screen,Urine Negative ng/ml (<50)
[2021-05-07 14:43] LABS: Cocaine Screen,Urine Negative ng/ml (<300); Methadone Screen,Urine Negative ng/ml (<300)
[2021-05-07 14:46] LABS: Opiate Screen,Urine Negative ng/ml (<300); Phencyclidine Screen,Urine Negative ng/ml (<25)
== END ==
PROVIDERS: Visit Provider Nurse Practitioner Family
DX: G89.29 Other chronic pain (principal)
CPT/HCPCS: 80305

== ENCOUNTER 2021-06-27 18:51 | Emergency (ER) | payer MEDICARE, MEDICAID, SELFPAY ==
[2021-06-27 18:52] VITALS: BP 174/115; PULSE 110; RESP 40; TEMP 36.8; O2SAT 98; BMI 22.4
--- NOTE | 2021-06-27 18:55 | PC.NURSE ---
EKG completed and Covid Swab sent to lab
--- NOTE | 2021-06-27 19:00 | ECG_ITS ---
APPROVED REPORT Exam: Resting ECG HR:111 bpm ECG Measurements Heart Rate 111 AXES [place] 135 P 79 QRSd 80 QRS 61 QT 308 T 69 QTc 373 Conclusion SINUS TACHYCARDIA POSSIBLE RIGHT VENTRICULAR CONDUCTION DELAY [RSR (QR) IN V1/V2] ABNORMAL RHYTHM ECG UNCONFIRMED REPORT Electronically signed by : Edgard Dasilva MD 06/28/2021 18:34:47
--- NOTE | 2021-06-27 19:12 | XR_ITS ---
PROCEDURE INFORMATION: Exam: XR Chest Exam date and time: 06/27/2021 7:12 PM Age: 65 years old Clinical indication: Shortness of breath; Additional info: Soa/weak TECHNIQUE: Imaging protocol: XR of the chest. Views: 1 view. COMPARISON: CR XR CHEST PORTABLE 02/25/2019 6:47 PM FINDINGS: Lungs: Large lung volumes with relative lucency within the upper lung zones. No consolidation. Pleural spaces: No pneumothorax. Heart/Mediastinum: No cardiomegaly. Bones/joints: No acute abnormality. IMPRESSION: No acute findings.
[2021-06-27 19:19] LABS: Influenza A, PCR Not Detected (NotDetected); Influenza B, PCR Not Detected (NotDetected)
[2021-06-27 19:36] LABS: Basophils # 0.1 K/mm3 (0-0.2); Basophils % 1.3 % (0.1-2.0); Eosinophils # 0.1 K/mm3 (0.0-0.4); Eosinophils % 2.3 % (0.1-12.0); Hematocrit 46.8 % (37.0-47.0); Hemoglobin 15.5 g/dL (12.2-16.2); Lymphocytes # 0.3 K/mm3 (0.7-4.5); Lymphocytes % 5.3 % (10-50); Mean Corpuscular HGB Conc 33.2 g/dL (31.8-35.4); Mean Corpuscular Hemoglobin 30.2 pg (27.0-31.2); Monocytes # 0.4 K/mm3 (0.1-1.0); Monocytes % 6.3 % (1.7-9.3); Neutrophils # 5.3 K/mm3 (1.8-7.8); Neutrophils % 84.8 % (37.0-80.0); Platelet Count 193 K/mm3 (142-424); Red Blood Count 5.14 M/mm3 (4.20-5.40); Red Cell Distribution Width 13.9 % (11.5-17.5); White Blood Count 6.2 K/mm3 (4.8-10.8)
[2021-06-27 19:41] LABS: Chloride 100 mmol/L (98-107); Potassium 4.1 mmoL/L (3.5-5.1); Sodium 137 mmol/L (136-145)
[2021-06-27 19:43] LABS: Alanine Aminotransferase 23 U/L (12-78); Aspartate Amino Transferase 32 U/L (14-36); Blood Urea Nitrogen 13 mg/dl (7-17); Creatinine Clearance Estimated 49 mL/min (50-200); Estimated Glomerular Filt Rate 72 ml/min (>60); GFR (African American) 87 ML/MIN (>60)
[2021-06-27 19:44] LABS: Albumin Level 4.6 g/dl (3.5-5.0); Albumin/Globulin Ratio 1.2 (1.1-1.8); Alkaline Phosphatase 147 U/L (38-126); Anion Gap 12.1 mEq/L (5-15); Bilirubin,Total 0.5 mg/dl (0.2-1.3); Carbon Dioxide 29 mmol/L (22.0-30.0); Globulin 3.7 g/dL (1.3-3.2); Glucose 95 mg/dl (74-100); Total Protein,Serum 8.3 g/dl (6.3-8.2)
[2021-06-27 19:56] LABS: Troponin I < 0.01 ng/ml (0.00-0.034)
[2021-06-27 20:04] LABS: Coronavirus 19, PCR Detected (NotDetected)
[2021-06-27 20:20] VITALS: BP 135/78; PULSE 99; RESP 20; TEMP 36.9; O2SAT 97
--- NOTE | 2021-06-27 20:21 | HMH.EDSOB ---
ED Disposition Clinical Impression: Acute exacerbation of chronic obstructive airways disease, COVID-19 Disposition: Home, Self-Care Condition on Discharge: Fair Instructions: DI for COVID-19 (Suspected or Confirmed ) Additional Instructions: call pcp in am and return if needed and use meds Prescriptions: predniSONE [Prednisone 20mg Tab] 20 mg PO BID #10 tab Transmission Status: Pending to [facility] Azithromycin [Zithromax 250mg tab] 250 mg PO DIRECTED #6 tab Transmission Status: Pending to [facility] Referrals: Stephy Morin PA [Primary Care Provider] - - Critical Care Critical Care Time: No Attestation: On 06/27/21, the high probability of a clinically significant, sudden or life threatening deterioration of the following system(s) required my full and direct attention, intervention and personal management. The time I documented below is in addition to time spent performing reported procedures but includes the following listed in this critical care notation. Medical Decision Making - Medical Records Medical records reviewed: Yes: I reviewed the patient's medical records. - Aquilino Inquiry Pt receiving controlled substance: No Vital Signs: 06/27/21 18:52 Temperature 98.3 F Temperature Source Oral Pulse Rate [Right] 110 H Respiratory Rate 40 H Blood Pressure [Right Arm] 174/115 H Blood Pressure Mean [Right Arm] 134 Blood Pressure Source [Right Arm] Automatic Cuff Blood Pressure Position [Right Arm] Sitting 02 Sat by Pulse Oximetry 98 Oxygen Delivery Method Room Air - Lab Data Lab results reviewed: Yes: I reviewed the patient's lab results. Lab Results 06/27/21 19:03: SARS-CoV-2 (PCR) Detected A, Influenza A Untype (PCR) Not detected, Influenza Type B (PCR) Not detected 06/27/21 19:11: WBC 6.2, RBC 5.14, Hgb 15.5, Hct 46.8, MCV 91.0, MCH 30.2, MCHC 33.2, RDW 13.9, Plt Count 193, MPV 10.0, Neut % (Auto) 84.8 H, Lymph % (Auto) 5.3 L, [place] % (Auto) 6.3, Eos % (Auto) 2.3, Baso % (Auto) 1.3, Neut # (Auto) 5.3, Lymph # (Auto) 0.3 L, [place] # (Auto) 0.4, Eos # (Auto) 0.1, Baso # (Auto) 0.1 06/27/21 19:11: Sodium 137, Potassium 4.1, Chloride 100, Carbon Dioxide 29, Anion Gap 12.1, BUN 13, Creatinine 0.80, Estimated Creat Clear 49, Estimated GFR 72, Est GFR ( Amer) 87, Glucose 95, Calcium 10.0, Total Bilirubin 0.5, AST 32, ALT 23, Alkaline Phosphatase 147 H, Troponin I < 0.01, Total Protein 8.3 H, Albumin 4.6, Globulin 3.7 H, Albumin/Globulin Ratio 1.2 Result diagrams: 06/27/21 19:11 06/27/21 19:11 Orders (Tests/Meds): ORDERS Category Date Time Status CT angio chest PE protocol Stat Cat Scan 06/27/21 20:21 Ordered Troponin I Q3H Lab 06/27/21 22:15 Ordered Troponin I Q3H Lab 06/28/21 01:15 Ordered 12-lead EKG Request [ECG Request by /Elisha] Stat Y 06/27/21 19:00 Ordered - Radiology Data #1 Image(s): Chest Image Reviewed: Yes I have reviewed radiologist's interpretation Preliminary Findings: Normal/NAD - ECG Data Tracing #1 Arrhythmias present: sinus tach Ischemic changes: non-specific ST-T wave changes - LEONIE Score for Non-Stemi Age of Patient: 60-69 years old Heart Rate: 110-149 bpm Systolic Blood Pressure: 160-199 mmHg Serum Creatinine: 0.80-1.19 mg/dl CHF Killip Class: I-No CHF Other Risk Factors: None Non-Stemi Risk Score: 99 Medical Decision Narrative: pt declined to do ct chest for pul emboli and declined to have sec trop and declined consideration of admit - has copd and covid-19 at this time - Resp/SOB HPI - General Chief Complaint: Weakness Stated Complaint: weakness;dizziness Time Seen by Provider: 06/27/21 20:21 Mode of Arrival: EMS Source of Information: Patient, EMS, Medical Record Limitations: No Limitations Description of Symptoms (Recalled from ER Triage Doc. by RN): Pt advises around noon today she started feeling weak and dizzy, advises she is also having toruble walking. Denies any headache/jose
== END 2021-06-27 20:30 | disposition home or self-care (01) ==
PROVIDERS: Emergency Medicine; Emergency Provider Emergency Medicine; PCP Physician Assistant
DX: J44.1 Chronic obstructive pulmonary disease with (acute) exacerbation (principal); U07.1 COVID-19; I25.10 Atherosclerotic heart disease of native coronary artery without angina pectoris; F41.8 Other specified anxiety disorders; F17.210 Nicotine dependence, cigarettes, uncomplicated
CPT/HCPCS: 71045; 80053; 84484; 85025; 93005; 96374; 96375; 99283; C9803; U0003; U0005

== ENCOUNTER 2021-09-28 10:25 | Emergency (ER) | payer MEDICARE, MEDICAID, SELFPAY ==
[2021-09-28] VITALS (12 sets, daily range): BP systolic 152–195; BP diastolic 71–107; PULSE 76–101; RESP 16–20; TEMP 36.6–36.7; O2SAT 92–98; BMI 22.6
--- NOTE | 2021-09-28 10:41 | PC.NURSE ---
MARISELA VILLALOBOS at
--- NOTE | 2021-09-28 10:45 | XR_ITS ---
FINAL REPORT CLINICAL HISTORY: cough, soa COMPARISON: June 27, 2021 FINDINGS: The heart size is normal. The mediastinum is normal. There are chronic changes in the lung bases. There are no pleural effusions. There is no pneumothorax. There is no osseous abnormality. IMPRESSION: No acute cardiopulmonary process Reviewed, Interpreted and Dictated by Regino Johnson MD Transcribed by Denis Herrera Authenticated by Regino Johnson MD on 09/28/2021 12:20:[address] [facility]
--- NOTE | 2021-09-28 10:46 | HMH.EDGENADL ---
ED Disposition Clinical Impression: Pleurisy, COPD exacerbation Disposition: Home, Self-Care Condition on Discharge: Good Instructions: DI for Chronic Obstructive Pulmonary Disease, DI for Pleurisy Additional Instructions: follow up PCP, return for worse Prescriptions: Ibuprofen [Ibuprofen 400mg Tablet] 400 mg PO Q8HP PRN #15 tab PRN Reason: Moderate To Severe Pain Transmission Status: Received by [facility] Albuterol Sulfate [Albuterol Sulfate Hfa] 2 puffs IH Q4-6H PRN #1 each PRN Reason: Wheezing Transmission Status: [facility] by [facility] Doxycycline Hyclate [Doxycycline Hyclate 100mg Tablet] 100 mg PO Q12 #20 tab Transmission Status: [facility] methylPREDNISolone [Medrol 4mg tab] 4 mg PO DIRECTED #21 tab Transmission Status: Received by [facility] Referrals: Niya Contreras APRN [Primary Care Provider] - - Critical Care Critical Care Time: No Attestation: On 09/28/21, the high probability of a clinically significant, sudden or life threatening deterioration of the following system(s) required my full and direct attention, intervention and personal management. The time I documented below is in addition to time spent performing reported procedures but includes the following listed in this critical care notation. Medical Decision Making - Medical Records Medical records reviewed: Yes: I reviewed the patient's medical records. - Aquilino Inquiry Pt receiving controlled substance: No Vital Signs: 09/28/21 10:26 09/28/21 11:10 09/28/21 12:23 Temperature 98.0 F Temperature Source Oral Pulse Rate 93 H 82 Pulse Rate [Left Radial] 98 H Respiratory Rate 20 20 Blood Pressure 152/81 H Blood Pressure [Left Arm] 190/107 H Blood Pressure Mean 133 Blood Pressure Mean [Left Arm] 134 Blood Pressure Source [Left Arm] Automatic Cuff Blood Pressure Position [Left Arm] Sitting 02 Sat by Pulse Oximetry 94 L 92 L Oxygen Delivery Method Room Air Room Air 09/28/21 12:30 09/28/21 13:00 09/28/21 13:15 Temperature Temperature Source Pulse Rate 85 82 Pulse Rate [Left Radial] Respiratory Rate Blood Pressure 155/81 H 167/83 H 156/83 H Blood Pressure [Left Arm] Blood Pressure Mean 126 135 Blood Pressure Mean [Left Arm] Blood Pressure Source [Left Arm] Blood Pressure Position [Left Arm] 02 Sat by Pulse Oximetry 93 L 92 L Oxygen Delivery Method 09/28/21 14:08 09/28/21 14:27 09/28/21 14:30 Temperature Temperature Source Pulse Rate 101 H 98 H 92 H Pulse Rate [Left Radial] Respiratory Rate Blood Pressure 195/92 H 176/76 H 167/74 H Blood Pressure [Left Arm] Blood Pressure Mean Blood Pressure Mean [Left Arm] Blood Pressure Source [Left Arm] Blood Pressure Position [Left Arm] 02 Sat by Pulse Oximetry 94 L 93 L 93 L Oxygen Delivery Method 09/28/21 15:00 09/28/21 15:31 09/28/21 16:19 Temperature 98 F Temperature Source Pulse Rate 94 H 76 Pulse Rate [Left Radial] Respiratory Rate 16 Blood Pressure 162/89 H 153/71 H 153/71 H Blood Pressure [Left Arm] Blood Pressure Mean 115 Blood Pressure Mean [Left Arm] Blood Pressure Source [Left Arm] Blood Pressure Position [Left Arm] 02 Sat by Pulse Oximetry 94 L Oxygen Delivery Method Room Air Room Air - Lab Data Lab Results 09/28/21 10:53: WBC 9.9, RBC 5.28, Hgb 15.9, Hct 46.9, MCV 88.8, MCH 30.1, MCHC 33.9, RDW 12.6, Plt Count 215, MPV 8.9, Neut % (Auto) 73.9, Lymph % (Auto) 16.1, [place] % (Auto) 7.0, Eos % (Auto) 2.1, Baso % (Auto) 0.9, Neut # (Auto) 7.3, Lymph # (Auto) 1.6, [place] # (Auto) 0.7, Eos # (Auto) 0.2, Baso # (Auto) 0.1 09/28/21 10:53: Sodium 141, Potassium 4.0, Chloride 108 H, Carbon Dioxide 25, Anion Gap 12.0, BUN 15, Creatinine 0.70, Estimated Creat Clear 47, Estimated GFR 83, Est GFR ( Amer) 101, Glucose 144 H, Calcium 10.1, Total Bilirubin 0.9, AST 24, ALT 20, Alkaline Phos
--- NOTE | 2021-09-28 10:55 | PC.NURSE ---
rad at BS for portable xray
--- NOTE | 2021-09-28 11:01 | PC.NURSE ---
RT at BS
--- NOTE | 2021-09-28 11:03 | ECG_ITS ---
APPROVED REPORT Exam: Resting ECG HR:96 bpm ECG Measurements Heart Rate 96 AXES [place] 136 P 84 QRSd 84 QRS 39 QT 364 T 56 QTc 417 Conclusion SINUS RHYTHM Biatrial abnormality Late R wave progression NSIVCD BORDERLINE ECG UNCONFIRMED REPORT Electronically signed by : Edgard Dasilva MD 09/30/2021 08:05:32
[2021-09-28 11:05] LABS: Basophils # 0.1 K/mm3 (0-0.2); Basophils % 0.9 % (0.1-2.0); Eosinophils # 0.2 K/mm3 (0.0-0.4); Eosinophils % 2.1 % (0.1-12.0); Hematocrit 46.9 % (37.0-47.0); Hemoglobin 15.9 g/dL (12.2-16.2); Lymphocytes # 1.6 K/mm3 (0.7-4.5); Lymphocytes % 16.1 % (10-50); Mean Corpuscular HGB Conc 33.9 g/dL (31.8-35.4); Mean Corpuscular Hemoglobin 30.1 pg (27.0-31.2); Mean Corpuscular Volume 88.8 fl (81-99); Mean Platelet Volume 8.9 fl (7.4-10.4); Monocytes # 0.7 K/mm3 (0.1-1.0); Neutrophils # 7.3 K/mm3 (1.8-7.8); Neutrophils % 73.9 % (37.0-80.0); Platelet Count 215 K/mm3 (142-424); Red Blood Count 5.28 M/mm3 (4.20-5.40); Red Cell Distribution Width 12.6 % (11.5-17.5); White Blood Count 9.9 K/mm3 (4.8-10.8)
[2021-09-28 11:09] LABS: Chloride 108 mmol/L (98-107)
[2021-09-28 11:10] LABS: Sodium 141 mmol/L (136-145)
[2021-09-28 11:12] LABS: Alanine Aminotransferase 20 U/L (12-78); Alkaline Phosphatase 146 U/L (38-126); Aspartate Amino Transferase 24 U/L (14-36); Bilirubin,Total 0.9 mg/dl (0.2-1.3); Blood Urea Nitrogen 15 mg/dl (7-17); Carbon Dioxide 25 mmol/L (22.0-30.0); Creatinine Clearance Estimated 47 mL/min (50-200); Estimated Glomerular Filt Rate 83 ml/min (>60); GFR (African American) 101 ML/MIN (>60)
[2021-09-28 11:13] LABS: Albumin Level 4.2 g/dl (3.5-5.0); Albumin/Globulin Ratio 1.2 (1.1-1.8); Calcium 10.1 mg/dl (8.4-10.2); Globulin 3.5 g/dL (1.3-3.2); Glucose 144 mg/dl (74-100); Total Protein,Serum 7.7 g/dl (6.3-8.2)
[2021-09-28 11:32] LABS: Troponin I < 0.01 ng/ml (0.00-0.034)
[2021-09-28 12:02] LABS: Lactic Acid 1.3 mmol/L (0.7-2.1)
--- NOTE | 2021-09-28 12:14 | PC.NURSE ---
unable to obtain estimated result time on d-dimer from lab, but states specimen is running and they will call us back soon with more information. Spoke with kavya
--- NOTE | 2021-09-28 12:20 | PC.NURSE ---
lab called back and states will be approx 20 more minutes of pt d-dimer result, states the analyzer is down. notified MARISELA VILLALOBOS
--- NOTE | 2021-09-28 12:25 | PC.NURSE ---
pt helped to readjust in bed, given warm blanket, updated on POC. will continue to monitor
--- NOTE | 2021-09-28 13:11 | PC.NURSE ---
checked on pt for any needs
[2021-09-28 13:20] LABS: D-Dimer 0.61 ug/mL (0.0-0.5)
--- NOTE | 2021-09-28 13:34 | PC.NURSE ---
contacted lab to check on stats us d-dimer, have not received result on it yet, spoke with kavya. States she is going to have radha call me back. Notified MARISELA VILLALOBOS
--- NOTE | 2021-09-28 13:40 | CT_ITS ---
FINAL REPORT TECHNIQUE: Thin section axial CT images were obtained from the lung apices to the upper abdomen. IV contrast was administered. MIP 3-D reformats were obtained. This study was performed with techniques to keep radiation doses as low as reasonably achievable (ALARA). Individualized dose reduction techniques using automated exposure control or adjustment of mA and/or kV according to the patient's size were employed. CLINICAL HISTORY: pleuritic chest pain, soa, elevated d dimer FINDINGS: The heart size is normal. There are few small scattered mediastinal lymph nodes. There is no filling defect to suggest PE. There is no aortic dissection. There is no pericardial effusion. There are moderate changes of centrilobular emphysema. There is scarring or atelectasis in the right middle lobe and lingula. There is no suspicious infiltrate or nodule. No pleural effusion. Limited images of the upper abdomen demonstrate no acute abnormality. IMPRESSION: No pulmonary embolism or aortic dissection. Reviewed, Interpreted and Dictated by Regino Johnson MD Transcribed by Denis Herrera Authenticated by Regino Johnson MD on 09/28/2021 03:16:19 PM [facility]
--- NOTE | 2021-09-28 13:40 | PC.NURSE ---
notified ER pt d-dimer is now resulted in system
--- NOTE | 2021-09-28 14:05 | PC.NURSE ---
pt return from CT, pt is very anxious reporting she feels very SOA. SaO2 86% on RA, pt is tremulous in nature, notified ER MD. ER MD came to BS to reassess pt. Pt placed on O2 at 2L per NC, will continue to monitor.
--- NOTE | 2021-09-28 15:11 | PC.NURSE ---
pt reports feeling better at this time, states does not feel SOA at this time, Sa02 95% ON 2L per NC, resting in bed, will continue to monitor
[2021-09-28 15:19] LABS: Troponin I < 0.01 ng/ml (0.00-0.034)
--- NOTE | 2021-09-28 15:30 | PC.NURSE ---
MARISELA VILLALOBOS removed pts oxygen. Will continue to monitor pt SaO2
--- NOTE | 2021-09-28 15:44 | PC.NURSE ---
pt walked around ER for walking room air sat per ER MD request, SaO2 after walking was 90% on RA will notify ER
== END 2021-09-28 16:22 | disposition home or self-care (01) ==
PROVIDERS: Emergency Provider Emergency Medicine; PCP Nurse Practitioner Family
DX: R44.1 Visual hallucinations (principal); R09.1 Pleurisy; M54.9 Dorsalgia, unspecified; R00.0 Tachycardia, unspecified; R11.2 Nausea with vomiting, unspecified; I51.9 Heart disease, unspecified; I73.9 Peripheral vascular disease, unspecified; I25.10 Atherosclerotic heart disease of native coronary artery without angina pectoris; E78.5 Hyperlipidemia, unspecified; G89.29 Other chronic pain; G47.00 Insomnia, unspecified; F43.10 Post-traumatic stress disorder, unspecified; F32.A Depression, unspecified; F41.9 Anxiety disorder, unspecified; F17.210 Nicotine dependence, cigarettes, uncomplicated; Z79.51 Long term (current) use of inhaled steroids; Z79.82 Long term (current) use of aspirin; Z79.02 Long term (current) use of antithrombotics/antiplatelets; Z79.899 Other long term (current) drug therapy; Z88.8 Allergy status to other drugs, medicaments and biological substances
CPT/HCPCS: 36415; 71045; 71275; 80053; 83605; 84484; 85025; 85378; 87040; 93005; 96374; 96375; 99285; J2405; Q9967

== ENCOUNTER 2021-09-30 02:26 | Emergency (ER) | payer MEDICARE, MEDICAID, SELFPAY ==
[2021-09-30 02:24] VITALS: BP 154/80; PULSE 112; RESP 22; TEMP 36.7; O2SAT 95; BMI 21.9
--- NOTE | 2021-09-30 02:29 | XR_ITS ---
PROCEDURE INFORMATION: Exam: XR Chest Exam date and time: 09/30/2021 2:37 AM Age: 66 years old Clinical indication: Shortness of breath; Additional info: SOA TECHNIQUE: Imaging protocol: XR of the chest. Views: 1 view. COMPARISON: CR XR CHEST AP 09/28/2021 10:48 AM FINDINGS: Lungs: Bilateral lung hyperinflation COPD. No evidence of consolidations, interstitial patterns or pulmonary nodules. Pleural spaces: No evidence of effusions or pneumothorax. Heart/Mediastinum: The cardiomediastinal silhouette is normal in size and configuration. There is no evidence of cardiomegaly. Bones/joints: Intact. IMPRESSION: 1. Bilateral lung hyperinflation compatible with COPD. 2. No consolidations identified.
--- NOTE | 2021-09-30 02:32 | ECG_ITS ---
APPROVED REPORT Exam: Resting ECG HR:114 bpm ECG Measurements Heart Rate 114 AXES [place] 122 P 87 QRSd 80 QRS 71 QT 341 T 68 QTc 408 Conclusion SINUS TACHYCARDIA POSSIBLE RIGHT ATRIAL ENLARGEMENT [0.25mV P-WAVE] LEFT ATRIAL ENLARGEMENT [-0.15mV P-WAVE IN V1/V2] POSSIBLE RIGHT VENTRICULAR CONDUCTION DELAY [RSR (QR) IN V1/V2] ABNORMAL ECG UNCONFIRMED REPORT Electronically signed by : Edgard Dasilva MD 09/30/2021 07:58:43
--- NOTE | 2021-09-30 02:40 | HMH.EDSOB ---
ED Disposition Clinical Impression: Influenza A COPD (chronic obstructive pulmonary disease) Qualifiers: COPD type: unspecified COPD Qualified Code(s): J44.9 - Chronic obstructive pulmonary disease, unspecified Disposition: Home, Self-Care Condition on Discharge: Good Instructions: DI for Influenza -- Adult Additional Instructions: use meds and see pcp for follow up Prescriptions: Oseltamivir Phosphate [Tamiflu 75mg Capsule] 75 mg PO BID #10 cap Transmission Status: Pending to [id number] Referrals: Stephy Morin PA [Primary Care Provider] - - Critical Care Critical Care Time: No Attestation: On 09/30/21, the high probability of a clinically significant, sudden or life threatening deterioration of the following system(s) required my full and direct attention, intervention and personal management. The time I documented below is in addition to time spent performing reported procedures but includes the following listed in this critical care notation. Medical Decision Making - Medical Records Medical records reviewed: Yes: I reviewed the patient's medical records. - [place] Inquiry Pt receiving controlled substance: No Vital Signs: 09/30/21 02:24 09/30/21 02:49 09/30/21 05:15 Temperature 98.1 F Temperature Source Oral Pulse Rate 107 H 88 Pulse Rate [Right] 112 H Respiratory Rate 22 Blood Pressure 115/61 Blood Pressure [Right Arm] 154/80 H Blood Pressure Mean [Right Arm] 104 02 Sat by Pulse Oximetry 95 94 L Oxygen Delivery Method Room Air Oxygen Flow Rate (LPM) 2 - Lab Data Lab results reviewed: Yes: I reviewed the patient's lab results. Lab Results 09/30/21 02:32: WBC 12.3 H, RBC 4.98, Hgb 14.8, Hct 43.8, MCV 88.0, MCH 29.7, MCHC 33.8, RDW 12.4, Plt Count 220, MPV 12.2 H, Neut % (Auto) 86.3 H, Lymph % (Auto) 7.9 L, [place] % (Auto) 5.1, Eos % (Auto) 0.2, Baso % (Auto) 0.3, Neut # (Auto) 10.6 H, Lymph # (Auto) 1.0, [place] # (Auto) 0.6, Eos # (Auto) 0.0, Baso # (Auto) 0.0, Total Counted TNP, Platelet Estimate TNP, RBC Morphology TNP, ESR 15 09/30/21 02:32: Sodium 138, Potassium 3.8, Chloride 105, Carbon Dioxide 26, Anion Gap 10.8, BUN 23 H D, Creatinine 0.70, Estimated Creat Clear 47, Estimated GFR 83, Est GFR ( Amer) 101, Glucose 123 H, Calcium 9.0, Total Bilirubin 0.4, AST 32 D, ALT 24, Alkaline Phosphatase 126, C-Reactive Protein 18.8 H, Total Protein 7.1, Albumin 4.0, Globulin 3.1, Albumin/Globulin Ratio 1.3, Procalcitonin 0.085 09/30/21 02:32: Lactate 1.2 09/30/21 02:32: Troponin I < 0.01 09/30/21 04:23: SARS-CoV-2 (PCR) Not detected, Influenza A Untype (PCR) Detected A, Influenza Type B (PCR) Not detected Result diagrams: 09/30/21 02:32 09/30/21 02:32 Orders (Tests/Meds): ED MEDICATIONS Generic Name Dose Route Start Last Admin Trade Name Freq PRN Reason Stop Dose Admin Lactated Ringer's 1,000 mls @ 999 mls/hr 09/30/21 03:00 09/30/21 02:49 Lactated Ringer's 1000 Ml Bag IV 09/30/21 04:00 999 mls/hr .Q1H1M LEONARD Administration Sodium Chloride 10 ml 09/30/21 03:22 Sodium Chloride 0.9% 10ml Vial IV 10/30/21 03:21 NEEDED PRN to Dilute Lorazepam inj Discontinued Medications Generic Name Dose Route Start Last Admin Trade Name Freq PRN Reason Stop Dose Admin Albuterol/Ipratropium 3 ml 09/30/21 02:40 09/30/21 02:48 Ipratropium/Albuterol 3 Ml Neb IH 09/30/21 02:41 3 ml ONCE ONE Administration Lorazepam 1 mg 09/30/21 03:22 09/30/21 03:28 Lorazepam 2mg/Ml Vial IV 09/30/21 03:23 1 mg ONCE ONE Administration Methylprednisolone Sodium Succinate 125 mg 09/30/21 02:31 09/30/21 02:48 Methylprednisolone Sod Succ 125mg Vial IV 09/30/21 02:32 125 mg ONCE ONE Administration ORDERS Category Date Time Status Troponin I Q3H Lab 09/30/21 06:30 Ordered Troponin I Q3H Lab 09/30/21 09:30 Ordered Blood Culture Stat Micro 09/30/21 02:32 Received - Radiology Data #1 Image(s): Ch
[2021-09-30 02:49] VITALS: PULSE 105; PULSE 107
[2021-09-30 02:51] LABS: Alanine Aminotransferase 24 U/L (12-78); Albumin/Globulin Ratio 1.3 (1.1-1.8); Alkaline Phosphatase 126 U/L (38-126); Anion Gap 10.8 mEq/L (5-15); Aspartate Amino Transferase 32 U/L (14-36); Bilirubin,Total 0.4 mg/dl (0.2-1.3); Blood Urea Nitrogen 23 mg/dl (7-17); Carbon Dioxide 26 mmol/L (22.0-30.0); Chloride 105 mmol/L (98-107); Creatinine Clearance Estimated 47 mL/min (50-200); Estimated Glomerular Filt Rate 83 ml/min (>60); GFR (African American) 101 ML/MIN (>60); Globulin 3.1 g/dL (1.3-3.2); Glucose 123 mg/dl (74-100); Lactic Acid 1.2 mmol/L (0.7-2.1); Potassium 3.8 mmoL/L (3.5-5.1); Sodium 138 mmol/L (136-145); Total Protein,Serum 7.1 g/dl (6.3-8.2)
[2021-09-30 02:56] LABS: C-Reactive Protein 18.8 mg/L (0-4)
[2021-09-30 03:06] LABS: Erythrocyte Sedimentation Rate 15 mm/hr (0-30)
[2021-09-30 03:09] LABS: Procalcitonin 0.085 ng/mL (0.0-2.0)
[2021-09-30 03:49] LABS: Troponin I < 0.01 ng/ml (0.00-0.034)
[2021-09-30 04:27] LABS: Coronavirus 19, PCR Not Detected (NotDetected); Influenza B, PCR Not Detected (NotDetected)
[2021-09-30 05:15] VITALS: BP 115/61; PULSE 88; O2SAT 94
[2021-09-30 05:16] LABS: Influenza A, PCR Detected (NotDetected)
[2021-09-30 05:46] LABS: Hematocrit 43.8 % (37.0-47.0); Hemoglobin 14.8 g/dL (12.2-16.2); Mean Corpuscular HGB Conc 33.8 g/dL (31.8-35.4); Mean Corpuscular Hemoglobin 29.7 pg (27.0-31.2); Red Blood Count 4.98 M/mm3 (4.20-5.40)
[2021-09-30 05:47] LABS: Lymphocytes % 7.9 % (10-50); Mean Platelet Volume 12.2 fl (7.4-10.4); Monocytes % 5.1 % (1.7-9.3); Neutrophils % 86.3 % (37.0-80.0); Platelet Count 220 K/mm3 (142-424); Red Cell Distribution Width 12.4 % (11.5-17.5)
[2021-09-30 05:48] LABS: Basophils % 0.3 % (0.1-2.0); Eosinophils % 0.2 % (0.1-12.0); Monocytes # 0.6 K/mm3 (0.1-1.0); Neutrophils # 10.6 K/mm3 (1.8-7.8)
[2021-09-30 05:49] LABS: MANUAL DIFFERENTIAL MANUAL DIFFERENTIAL (MANUAL DIFF); White Blood Count 12.3 K/mm3 (4.8-10.8)
[2021-09-30 06:23] VITALS: BP 115/61; PULSE 88; RESP 20; TEMP 37.1; O2SAT 94
[2021-09-30 06:47] LABS: Troponin I < 0.01 ng/ml (0.00-0.034)
== END 2021-09-30 06:37 | disposition home or self-care (01) ==
PROVIDERS: Emergency Provider Emergency Medicine; PCP Physician Assistant
DX: J44.1 Chronic obstructive pulmonary disease with (acute) exacerbation (principal); R09.1 Pleurisy; M79.601 Pain in right arm; M79.602 Pain in left arm; M79.605 Pain in left leg; M79.604 Pain in right leg; I10 Essential (primary) hypertension; I25.10 Atherosclerotic heart disease of native coronary artery without angina pectoris; E78.5 Hyperlipidemia, unspecified; F43.10 Post-traumatic stress disorder, unspecified; F32.A Depression, unspecified; F41.9 Anxiety disorder, unspecified; F17.210 Nicotine dependence, cigarettes, uncomplicated; Z79.02 Long term (current) use of antithrombotics/antiplatelets; Z79.82 Long term (current) use of aspirin; Z79.899 Other long term (current) drug therapy; Z88.8 Allergy status to other drugs, medicaments and biological substances; Z79.51 Long term (current) use of inhaled steroids; Z95.5 Presence of coronary angioplasty implant and graft
CPT/HCPCS: 71045; 80053; 83605; 84145; 84484; 85007; 85025; 85651; 86140; 87040; 93005; 96361; 96374; 96375; 99285; C9803; U0003; U0005

== ENCOUNTER → 2021-10-25 12:55 | Outpatient (CLI) | payer MEDICARE, SELFPAY ==
[2021-10-25 14:10] LABS: Chloride 109 mmol/L (98-107); Potassium 4.8 mmoL/L (3.5-5.1); Sodium 142 mmol/L (136-145)
[2021-10-25 14:12] LABS: Alanine Aminotransferase 15 U/L (12-78); Aspartate Amino Transferase 19 U/L (14-36); Blood Urea Nitrogen 11 mg/dl (7-17); Estimated Glomerular Filt Rate 83 ml/min (>60); GFR (African American) 101 ML/MIN (>60)
[2021-10-25 14:13] LABS: Albumin Level 3.9 g/dl (3.5-5.0); Albumin/Globulin Ratio 1.3 (1.1-1.8); Alkaline Phosphatase 150 U/L (38-126); Anion Gap 11.8 mEq/L (5-15); Bilirubin,Total 0.4 mg/dl (0.2-1.3); Calcium 9.9 mg/dl (8.4-10.2); Carbon Dioxide 26 mmol/L (22.0-30.0); Chol/HDL Ratio 3.2 (1-3.5); Cholesterol 166 mg/dl (140-200); Globulin 2.9 g/dL (1.3-3.2); Glucose 126 mg/dl (74-100); HDL Cholesterol 52 mg/dl (40-60); Total Protein,Serum 6.8 g/dl (6.3-8.2); Triglycerides 85 mg/dl (30-150); VLDL Cholesterol 17 mg/dL (0-40)
[2021-10-25 14:28] LABS: Basophils # 0.1 K/mm3 (0-0.2); Basophils % 2.4 % (0.1-2.0); Eosinophils # 0.3 K/mm3 (0.0-0.4); Eosinophils % 5.9 % (0.1-12.0); Hematocrit 46.9 % (37.0-47.0); Hemoglobin 15.4 g/dL (12.2-16.2); Lymphocytes # 1.7 K/mm3 (0.7-4.5); Mean Corpuscular HGB Conc 32.9 g/dL (31.8-35.4); Mean Corpuscular Hemoglobin 29.6 pg (27.0-31.2); Mean Corpuscular Volume 90.1 fl (81-99); Mean Platelet Volume 9.5 fl (7.4-10.4); Monocytes # 0.4 K/mm3 (0.1-1.0); Monocytes % 6.7 % (1.7-9.3); Neutrophils # 3.1 K/mm3 (1.8-7.8); Neutrophils % 55.1 % (37.0-80.0); Platelet Count 220 K/mm3 (142-424); Red Blood Count 5.21 M/mm3 (4.20-5.40); Red Cell Distribution Width 13.6 % (11.5-17.5); White Blood Count 5.7 K/mm3 (4.8-10.8)
[2021-10-25 14:39] LABS: 25-OH Vitamin D, Total < 12.8 ng/mL (30-100)
[2021-10-25 14:45] LABS: Thyroid Stimulating Hormone 2.04 uIU/mL (0.465-4.68)
[2021-10-25 15:09] LABS: Vitamin B12 493 pg/mL (239-931)
== END ==
PROVIDERS: PCP Physician Assistant; Visit Provider Physician Assistant
DX: Z87.891 Personal history of nicotine dependence (principal); F41.1 Generalized anxiety disorder; I10 Essential (primary) hypertension; R06.02 Shortness of breath; E55.9 Vitamin D deficiency, unspecified; Z79.899 Other long term (current) drug therapy
CPT/HCPCS: 80053; 80061; 82306; 82607; 83036; 84443; 85025

== ENCOUNTER → 2021-11-29 14:22 | Outpatient (CLI) | payer MEDICARE, SELFPAY | PROVIDERS: PCP Physician Assistant; Visit Provider Physician Assistant | DX: N39.0 Urinary tract infection, site not specified (principal) | CPT/HCPCS: 87086 ==

== ENCOUNTER → 2022-03-14 11:04 | Outpatient (CLI) | payer MEDICARE, SELFPAY ==
--- NOTE | 2022-03-14 11:08 | CA_ITS ---
APPROVED REPORT EXAM: Comprehensive 2D, Doppler, and color-flow Echocardiogram Baker Operator Automatic: Lisette Luther RT(R) Ht: 5 ft 2 in Wt: 117lbs BSA: 1.52 BP: 158/83 mmHg Indications: SOA, COPD, smoker, HTN, hyperlipidemia, CAD, CM 2D Dimensions LVOT 1.75 cm (M/F) 1.5-2.5 LVEF (Mcdonough's) 54.80 % F: 54 - 74 LV Volume 61.10 mL F: 46 - 106 LV Volume Index 40.19 mL/m2 F: 29 - 61 LA Volume 20.70 mL LA Volume Index 13.61 mL/m2 (M/F) 16-34 M-Mode Dimensions RVDd 1.34 cm (0.9-2.6) LA Diam 2.56 cm (1.9-4.0) LVDd 4.23 cm (3.5-5.7) Ao Diam 2.89 cm (2.0-3.7) LVDs 3.12 cm (3.5-5.7) IVSd 0.60 cm (0.6-1.1) PWd 0.80 cm (0.6-1.1) EF (Teich) 51.80% FS 26.20% EDV (Teich) 79.90 mL ESV (Teich) 38.50 mL LV Diastology E Decel Time 230.00 (160-240 msec) E/A Ratio 0.9 MED E' 6.20 (< 7 cm/sec) E'/MED E' Ratio 16.63 (>14) LAT E' 6.80 (<10 cm/sec) E/LAT E' Ratio 15.16 (>14) Mitral Valve MV E Max Ge. 103.00 (40-130 cm/s) MV A Velocity 120.00 (40-130 cm/s) E/A Ratio 0.86 MV Decel. Time 230.00 (160-240 ms) MV PHT 67.00 ms Tricuspid Valve TR P. Velocity 192.00 cm/s RAP Estimate 10.00 mmHg RVSP 24.70 mmHg Left Ventricle Left atrium is mildly enlarged, left ventricle is normal size mild concentric left ventricular hypertrophy, estimated ejection fraction 55% with no regional wall motion abnormality, grade 1 diastolic dysfunction seen without tissue Doppler evidence of raise left atrial pressure. Right Ventricle Right atrium and right ventricle are normal size and contractility. Aortic Valve Aortic valve is minimally thickened and fibrosed there is no aortic stenosis or aortic insufficiency. Mitral Valve Mitral valve grossly normal, there is trace mitral regurgitation. Tricuspid Valve Tricuspid valve grossly normal, there is trace tricuspid regurgitation, tricuspid regurgitation jet velocity is inadequate for calculation of the right ventricular systolic pressure. Pulmonic Valve Pulmonic valve is poorly visualized. Great Vessels Aortic root is normal size. Inferior vena cava is poorly visualized. Pericardium No significant pericardial effusion. Conclusion 1. Mildly enlarged left atrium, normal left ventricular size mild concentric left ventricular hypertrophy, estimated ejection fraction 55% with no regional wall motion abnormality, grade 1 diastolic dysfunction seen without tissue Doppler evidence of raise left atrial pressure. 2. Trace mitral and tricuspid regurgitation. 3. No significant pericardial effusion noted. 4. Inferior vena cava is poorly visualized. Electronically signed by : Lul Bird MD 03/15/2022 06:16:37
== END ==
PROVIDERS: PCP Physician Assistant; Visit Provider Nurse Practitioner
DX: E78.2 Mixed hyperlipidemia (principal); I11.9 Hypertensive heart disease without heart failure; I25.10 Atherosclerotic heart disease of native coronary artery without angina pectoris; I42.1 Obstructive hypertrophic cardiomyopathy; I73.9 Peripheral vascular disease, unspecified
CPT/HCPCS: 93306

== ENCOUNTER 2022-07-04 16:24 | Emergency (ER) | payer MEDICARE, MEDICAID, SELFPAY ==
--- NOTE | 2022-07-04 16:35 | XR_ITS ---
PROCEDURE INFORMATION: Exam: XR Chest Exam date and time: 07/04/2022 4:47 PM Age: 67 years old Clinical indication: Pain; Left-sided; Additional info: Posterior left thorax pain TECHNIQUE: Imaging protocol: Radiologic exam of the chest. Views: 2 views. COMPARISON: CR XR CHEST PORTABLE 09/30/2021 2:37 AM FINDINGS: Lungs: Hyperexpanded lungs without infiltrate. Pleural spaces: Unremarkable. No pleural effusion. No pneumothorax. Heart/Mediastinum: Unremarkable. No cardiomegaly. Bones/joints: Unremarkable. IMPRESSION: Hyperexpanded lungs without infiltrate.
[2022-07-04 16:37] VITALS: BP 187/91; PULSE 107; RESP 16; TEMP 36.6; O2SAT 96; BMI 21.9
--- NOTE | 2022-07-04 16:38 | HMH.EDCP ---
Discharge Plan Disposition Patient Disposition: Home, Self-Care Condition: Good Chief Complaint: PAIN Prescriptions Prescriptions: No Action verapamil 180 mg capsule,ext rel. pellets 24 hr 180 mg PO DAILY Qty: 90 3RF aspirin 325 mg tablet 325 mg PO DAILY Qty: 90 3RF tiotropium bromide 18 mcg capsule, w/inhalation device 1 cap INHALATION DAILY Qty: 30 12RF Rx Instructions: puncture 1 cap using device; one dose = 2 inhalations ergocalciferol (vitamin D2) 1,250 mcg (50,000 unit) capsule 1,250 mcg PO DAILY fluticasone furoate-vilanterol 200-25 mcg/dose blister with device 1 inh INHALATION DAILY Qty: 28 12RF atorvastatin 10 mg tablet See Rx Instructions .Route .COMPLEX Qty: 90 0RF Rx Instructions: TAKE 1 TABLET BY MOUTH AT BEDTIME cholecalciferol (vitamin D3) 25 mcg (1,000 unit) capsule 25 mcg PO DAILY Qty: 90 3RF lisinopril 2.5 mg tablet 2.5 mg PO DAILY Qty: 90 3RF ipratropium-albuterol 0.5 mg-3 mg(2.5 mg base)/3 mL solution for nebulization See Rx Instructions .ROUTE .COMPLEX Qty: 180 5RF Dose Instruction: USE 1 AMPULE IN NEBULIZER THREE TIMES DAILY NEEDED FOR SHORTNESS OF BREATH FOR WHEEZING Rx Instructions: USE 1 AMPULE IN NEBULIZER THREE TIMES DAILY NEEDED FOR SHORTNESS OF BREATH FOR WHEEZING clonazepam [Klonopin] 1 mg tablet 1 mg PO BID Qty: 60 0RF gabapentin 600 mg tablet 600 mg PO TID Qty: 90 2RF albuterol sulfate 90 mcg/actuation HFA aerosol inhaler See Rx Instructions .ROUTE .COMPLEX Qty: 9 0RF Dose Instruction: INHALE 2 PUFFS BY MOUTH EVERY 4 TO 6 HOURS NEEDED FOR WHEEZING Rx Instructions: INHALE 2 PUFFS BY MOUTH EVERY 4 TO 6 HOURS NEEDED FOR WHEEZING quetiapine 25 MG tablet 25 mg PO HS metoprolol succinate 50 MG tablet extended release 24 hr 50 mg PO DAILY clopidogrel 75 MG tablet See Rx Instructions .Route .COMPLEX Rx Instructions: Take 1 tablet by mouth once daily buspirone 10 MG tablet See Rx Instructions .Route .COMPLEX Rx Instructions: TAKE 1 TABLET BY MOUTH THREE TIMES DAILY FOR BEHAVIOR/MOOD umeclidinium 62.5 MCG blister with device 1 inh INHALATION Q24H Referrals Follow up/Referrals: Stephy Morin PA [Primary Care Provider] - See instructions Activity Restrictions/Add. Instructions Additional Instructions/Restrictions: Return to the emergency department immediately if you feel worse in any way. You may take [id number] Tylenol for your pain. Follow-up with your primary care doctor in about 2 to 3 days if you do not improve. You can occasionally take some [id number] ibuprofen for the pain if the Tylenol does not help. Do not take ibuprofen for more than 5 days in a row. Clinical Impressions Clinical Impression: Acute chest wall pain, Musculoskeletal chest pain Instructions Patient Instructions: DI for Atypical Chest Pain Discharge ED Provider: Sonia Almazan Chest Pain HPI General Chief Complaint: PAIN Stated Complaint: back pain, pain under left arm Time Seen by Provider: 07/04/22 16:29 History of Present Illness HPI narrative: The patient complains of left-sided posterior thorax pain since this morning. It is worse with movement and deep breaths. She has no other symptoms. She has a history of anxiety and hypertension. Related Data Home Medications Medication Instructions Recorded Confirmed buspirone 10 mg tablet See Rx Instructions .Route 09/30/21 05/25/22 .COMPLEX . clopidogrel 75 mg tablet See Rx Instructions .Route 09/30/21 05/25/22 .COMPLEX Blood thinner metoprolol succinate 50 mg 50 mg PO DAILY High blood pressure 09/30/21 05/25/22 tablet,extended release 24 hr quetiapine 25 mg tablet 25 mg PO HS sleep 09/30/21 05/25/22 umeclidinium 62.5 mcg/actuation 1 inh inhalation Q24H Breathing 09/30/21 05/25/22 blister powder for inhalation problems ergocalciferol (vitamin D2) 1,250 1,2
[2022-07-04 16:40] VITALS: BP 193/86; PULSE 104; RESP 18; O2SAT 94
--- NOTE | 2022-07-04 16:44 | ECG_ITS ---
APPROVED REPORT Exam: Resting ECG HR:106 bpm ECG Measurements Heart Rate 106 AXES HI 134 P 83 QRSd 79 QRS 80 QT 348 T 76 QTc 410 Conclusion SINUS TACHYCARDIA RIGHT ATRIAL abnormality ABNORMAL RHYTHM ECG UNCONFIRMED REPORT Electronically signed by : Edgard Dasilva MD 07/05/2022 19:55:33
[2022-07-04 17:07] LABS: Basophils # 0.1 K/mm3 (0-0.2); Eosinophils # 0.3 K/mm3 (0.0-0.4); Eosinophils % 3.2 % (0.1-12.0); Hematocrit 44.6 % (37.0-47.0); Hemoglobin 14.7 g/dL (12.2-16.2); Lymphocytes # 1.6 K/mm3 (0.7-4.5); Lymphocytes % 16.4 % (10-50); Mean Corpuscular Hemoglobin 30.1 pg (27.0-31.2); Mean Corpuscular Volume 91.2 fl (81-99); Mean Platelet Volume 8.9 fl (7.4-10.4); Monocytes # 0.5 K/mm3 (0.1-1.0); Monocytes % 5.3 % (1.7-9.3); Neutrophils # 7.1 K/mm3 (1.8-7.8); Neutrophils % 74.1 % (37.0-80.0); Platelet Count 226 K/mm3 (142-424); White Blood Count 9.6 K/mm3 (4.8-10.8)
[2022-07-04 17:09] LABS: Chloride 110 mmol/L (98-107); Sodium 142 mmol/L (136-145)
[2022-07-04 17:12] LABS: Blood Urea Nitrogen 11 mg/dl (7-17); Creatinine Clearance Estimated 46 mL/min (50-200); Estimated Glomerular Filt Rate 83 ml/min (>60); GFR (African American) 101 ML/MIN (>60)
[2022-07-04 17:13] LABS: Carbon Dioxide 26 mmol/L (22.0-30.0); Glucose 106 mg/dl (74-100)
[2022-07-04 17:22] VITALS: BP 187/91; PULSE 102; RESP 18; O2SAT 95
[2022-07-04 17:31] VITALS: BP 172/81; PULSE 89; RESP 18; O2SAT 94
[2022-07-04 17:44] VITALS: BP 156/76; PULSE 89; RESP 20; TEMP 36.7
== END 2022-07-04 17:45 | disposition home or self-care (01) ==
PROVIDERS: Emergency Provider Emergency Medicine; PCP Physician Assistant
DX: R07.89 Other chest pain (principal); F41.9 Anxiety disorder, unspecified; I10 Essential (primary) hypertension; I25.10 Atherosclerotic heart disease of native coronary artery without angina pectoris; E78.5 Hyperlipidemia, unspecified; Z86.79 Personal history of other diseases of the circulatory system; I73.9 Peripheral vascular disease, unspecified; F43.10 Post-traumatic stress disorder, unspecified; F17.210 Nicotine dependence, cigarettes, uncomplicated
CPT/HCPCS: 71046; 80048; 85025; 93005; 96374; 99285

== ENCOUNTER 2022-07-21 15:53 | Emergency (ER) | payer MEDICARE, MEDICAID, SELFPAY ==
[2022-07-21] VITALS (10 sets, daily range): BP systolic 110–131; BP diastolic 57–72; PULSE 102–112; RESP 18–34; TEMP 36.6; O2SAT 84–97; BMI 21.9; BMI 20.7
--- NOTE | 2022-07-21 15:54 | PC.NURSE ---
radiology called for stroke protocol
--- NOTE | 2022-07-21 15:59 | CT_ITS ---
FINAL REPORT TECHNIQUE: Thin section axial images were obtained from skull base to vertex without contrast. Coronal reconstruction images were obtained from the axial data. Exam was performed using dose reduction technique. CLINICAL HISTORY: confusion, frequent fall, severe headache COMPARISON: 04/30/2021 FINDINGS: There is no mass effect or midline shift. There is no hydrocephalus. There is no intracranial hemorrhage. The posterior fossa is without acute abnormality. The basilar cisterns are preserved. The soft tissues are without acute abnormality. No acute osseous abnormality is identified. IMPRESSION: No acute intracranial abnormality. Reviewed, Interpreted and Dictated by Silke Gil MD Transcribed by Lesley Erazo Authenticated and [facility]
--- NOTE | 2022-07-21 16:00 | ECG_ITS ---
APPROVED REPORT Exam: Resting ECG HR:113 bpm ECG Measurements Heart Rate 113 AXES ND 137 P 78 QRSd 78 QRS 57 QT 326 T 66 QTc 393 Conclusion SINUS TACHYCARDIA POSSIBLE RIGHT ATRIAL ENLARGEMENT [0.25mV P-WAVE] LEFT ATRIAL ENLARGEMENT [-0.15mV P-WAVE IN V1/V2] POSSIBLE RIGHT VENTRICULAR CONDUCTION DELAY [RSR (QR) IN V1/V2] ABNORMAL ECG UNCONFIRMED REPORT Electronically signed by : Edgard Dasilva MD 07/22/2022 08:57:19
--- NOTE | 2022-07-21 16:01 | XR_ITS ---
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 Hx COPD COMPARISON: 07/04/2022 FINDINGS: A portable view of the chest was obtained. Cardiac and mediastinal silhouettes are within normal limits. There are increased interstitial markings, worse compared to the prior study. This may represent mild pulmonary edema. There is left basilar opacity which is new, atelectasis versus pneumonia.. There is no pleural effusion or pneumothorax. IMPRESSION: Worsened increased interstitial markings may represent mild pulmonary edema. New left basilar opacity. Reviewed, Interpreted and Dictated by Silke Gil MD Transcribed by Lesley Erazo Authenticated and [facility]
--- NOTE | 2022-07-21 16:02 | PC.NURSE ---
PT GOING TO CT
--- NOTE | 2022-07-21 16:02 | PC.NURSE ---
pt to CT via stretcher
[2022-07-21 16:19] LABS: Basophils # 0.2 K/mm3 (0-0.2); Eosinophils # 0.3 K/mm3 (0.0-0.4); Eosinophils % 1.6 % (0.1-12.0); Hemoglobin 14.9 g/dL (12.2-16.2); Lymphocytes # 1.6 K/mm3 (0.7-4.5); Lymphocytes % 10.3 % (10-50); Mean Corpuscular HGB Conc 33.2 g/dL (31.8-35.4); Mean Corpuscular Hemoglobin 29.4 pg (27.0-31.2); Mean Corpuscular Volume 88.6 fl (81-99); Mean Platelet Volume 8.6 fl (7.4-10.4); Monocytes # 0.8 K/mm3 (0.1-1.0); Monocytes % 4.9 % (1.7-9.3); Neutrophils # 12.8 K/mm3 (1.8-7.8); Neutrophils % 82.3 % (37.0-80.0); Platelet Count 275 K/mm3 (142-424); Red Blood Count 5.07 M/mm3 (4.20-5.40); White Blood Count 15.5 K/mm3 (4.8-10.8)
[2022-07-21 16:22] LABS: MANUAL DIFFERENTIAL MANUAL DIFFERENTIAL (MANUAL DIFF)
[2022-07-21 16:25] LABS: INR 0.97 (0.9-1.1); Prothrombin Time 10.5 seconds (10.1-12.5)
[2022-07-21 16:38] LABS: Potassium 4.3 mmoL/L (3.5-5.1); Sodium 138 mmol/L (136-145)
[2022-07-21 16:39] LABS: Chloride 104 mmol/L (98-107)
[2022-07-21 16:41] LABS: Anion Gap 11.3 mEq/L (5-15); Blood Urea Nitrogen 15 mg/dl (7-17); Carbon Dioxide 27 mmol/L (22.0-30.0); Creatinine Clearance Estimated 48 mL/min (50-200); Estimated Glomerular Filt Rate 62 ml/min (>60); GFR (African American) 75 ML/MIN (>60)
[2022-07-21 16:42] LABS: Calcium 8.8 mg/dl (8.4-10.2); Glucose 116 mg/dl (74-100)
--- NOTE | 2022-07-21 16:45 | PC.NURSE ---
contacted rad to check on status of CT result r/t pt is stroke protocol, states will send down preliminary report now
[2022-07-21 16:52] LABS: Eosinophils % 1 % (0-3); Lymphocytes % 8 % (10-50); Monocytes % 4 % (2-9); Neutrophils % 79 % (42-76); Total Cells Counted 100
[2022-07-21 16:53] LABS: Platelet Estimate Normal; RBC Morphology Normal
[2022-07-21 16:54] LABS: Spherocytes 1+
--- NOTE | 2022-07-21 16:57 | HMH.EDGENADL ---
Discharge Plan Disposition Patient Disposition: Left Against Medical Advice Condition: Serious Prescriptions Prescriptions: New cefdinir 300 mg capsule 300 mg PO BID 10 Days Qty: 20 0RF azithromycin [Zithromax] 250 mg tablet 250 mg PO DAILY 4 Days Qty: 4 0RF Rx Instructions: start on day 2 of therapy prednisone 20 mg tablet 20 mg PO BID Qty: 10 0RF No Action verapamil 180 mg capsule,ext rel. pellets 24 hr 180 mg PO DAILY Qty: 90 3RF aspirin 325 mg tablet 325 mg PO DAILY Qty: 90 3RF tiotropium bromide 18 mcg capsule, w/inhalation device 1 cap INHALATION DAILY Qty: 30 12RF Rx Instructions: puncture 1 cap using device; one dose = 2 inhalations ergocalciferol (vitamin D2) 1,250 mcg (50,000 unit) capsule 1,250 mcg PO DAILY fluticasone furoate-vilanterol 200-25 mcg/dose blister with device 1 inh INHALATION DAILY Qty: 28 12RF atorvastatin 10 mg tablet See Rx Instructions .Route .COMPLEX Qty: 90 0RF Rx Instructions: TAKE 1 TABLET BY MOUTH AT BEDTIME cholecalciferol (vitamin D3) 25 mcg (1,000 unit) capsule 25 mcg PO DAILY Qty: 90 3RF lisinopril 2.5 mg tablet 2.5 mg PO DAILY Qty: 90 3RF ipratropium-albuterol 0.5 mg-3 mg(2.5 mg base)/3 mL solution for nebulization See Rx Instructions .ROUTE .COMPLEX Qty: 180 5RF Dose Instruction: USE 1 AMPULE IN NEBULIZER THREE TIMES DAILY NEEDED FOR SHORTNESS OF BREATH FOR WHEEZING Rx Instructions: USE 1 AMPULE IN NEBULIZER THREE TIMES DAILY NEEDED FOR SHORTNESS OF BREATH FOR WHEEZING gabapentin 600 mg tablet 600 mg PO TID Qty: 90 2RF albuterol sulfate 90 mcg/actuation HFA aerosol inhaler See Rx Instructions .ROUTE .COMPLEX Qty: 9 0RF Dose Instruction: INHALE 2 PUFFS BY MOUTH EVERY 4 TO 6 HOURS NEEDED FOR WHEEZING Rx Instructions: INHALE 2 PUFFS BY MOUTH EVERY 4 TO 6 HOURS NEEDED FOR WHEEZING clonazepam [Klonopin] 1 mg tablet 1 mg PO BID Qty: 60 0RF quetiapine 25 MG tablet 25 mg PO HS metoprolol succinate 50 MG tablet extended release 24 hr 50 mg PO DAILY clopidogrel 75 MG tablet See Rx Instructions .Route .COMPLEX Rx Instructions: Take 1 tablet by mouth once daily buspirone 10 MG tablet See Rx Instructions .Route .COMPLEX Rx Instructions: TAKE 1 TABLET BY MOUTH THREE TIMES DAILY FOR BEHAVIOR/MOOD umeclidinium 62.5 MCG blister with device 1 inh INHALATION Q24H Activity Restrictions/Add. Instructions Additional Instructions/Restrictions: You have pneumonia and low oxygen which can be life-threatening. I recommended to stay in the hospital but you have chosen to sign out AGAINST MEDICAL ADVICE. I recommend that you follow-up with your primary care provider tomorrow in the office, and return to the emergency department if shortness of breath worsens. Begin taking antibiotics as prescribed tomorrow. Also take prednisone as prescribed. Continue using your nebulizer. We have called in an order for home oxygen through [facility], they should contact you to make arrangements. Clinical Impressions Clinical Impression: Community acquired pneumonia, Acute respiratory failure with hypoxia Instructions Patient Instructions: DI for Chronic Obstructive Pulmonary Disease, DI for Pneumonia -- Adult, DI for Respiratory Failure Discharge ED Provider: Lefty Guerra Adult HPI General Chief complaint: Fall Stated complaint: stroke Time Seen by Provider: 07/21/22 17:00 Mode of Arrival: Family Vehicle Source of Information: Patient and Relative Limitations: No Limitations Description of Symptoms (Recalled from ER Triage Doc. by RN): pt brought in by private vehicle. pt lives with her daughter. daughter states that she come home from work to find her mother sitting in a puddle of water. pt reports that she went outside to smoke a cigarette, slipped and fell. pt complains of headache, confusion. pt caitlin
--- NOTE | 2022-07-21 17:05 | PC.NURSE ---
MARISELA VILLALOBOS at
[2022-07-21 17:16] LABS: Microscopic, Urine URINE MICROSCOPIC (MICROSCOPIC)
--- NOTE | 2022-07-21 17:16 | PC.NURSE ---
notified RT of abg order.
[2022-07-21 17:20] LABS: Appearance,Urine CLEAR (Clear); Bilirubin,Urine Negative (Negative); Blood, Urine Negative (Negative); Color,Urine YELLOW (Yellow); Glucose,Urine (UA) Negative (Negative); Ketones,Urine Negative (Negative); Leukocyte Esterase,Urine Negative (Negative); Nitrate,Urine Negative (Negative); PH,Urine 7.5 (5.0-8.5); Protein,Urine TRACE (Negative); Specific Gravity, Urine 1.015 (1.005-1.030); Urobilinogen,Urine 0.2 EU/dl (0.2)
[2022-07-21 17:30] LABS: ABG Base Excess -2.1 mmol/L (-2.4-2.3); ABG HCO3 23.6 mmhg (22.0-26.0); ABG Oxygen Saturation 93 % (90-100); ABG PCO2 44.4 mmhg (35.0-45.0); ABG PH 7.34 mmol/L (7.35-7.45); ABG PO2 70.5 mmhg (80-100); ABG TCO2 24.9 mmhg (23-27); Allen's Test Acceptable; Oxygen 2.5 LPM %; Source Right Radial
[2022-07-21 17:32] LABS: Coronavirus 19, PCR Not Detected (NotDetected); Influenza A, PCR Not Detected (NotDetected); Influenza B, PCR Not Detected (NotDetected)
[2022-07-21 17:48] LABS: Lactic Acid 1.1 mmol/L (0.7-2.1)
[2022-07-21 18:14] LABS: Bacteria,Urine 2+ /lpf; Squamous Epithelial Cell,Urine Occasional #/hpf (0-5)
[2022-07-21 18:32] LABS: Alanine Aminotransferase 23 U/L (12-78); Alkaline Phosphatase 144 U/L (38-126); Aspartate Amino Transferase 30 U/L (14-36); Bilirubin,Direct 0.3 mg/dl (0.0-0.4); Bilirubin,Indirect 0.4 mg/dL (0.0-0.9); Bilirubin,Total 0.7 mg/dl (0.2-1.3); Bilirubin,Unconjugated 0.4 mg/dL (0.0-1.1); Total Protein,Serum 7.7 g/dl (6.3-8.2)
[2022-07-21 18:54] LABS: Troponin I < 0.01 ng/ml (0.00-0.034)
--- NOTE | 2022-07-21 19:09 | PC.NURSE ---
contacted lab to check on status of bnp, states they are going to check on it and get it released.
--- NOTE | 2022-07-21 19:23 | PC.NURSE ---
MESSAGE LEFT FOR [facility] TO CALL BACK FOR A HOME O2 SET UP FOR PT
[2022-07-21 19:25] LABS: NT Pro Brain Natriuretic Pep. 60.7 pg/mL (0-125)
--- NOTE | 2022-07-21 19:25 | PC.NURSE ---
pt pulled out iv when nurse went in to check on pt.
--- NOTE | 2022-07-21 19:38 | PC.NURSE ---
spoke with [facility] to get pt set up with home o2
--- NOTE | 2022-07-21 20:23 | PC.NURSE ---
[facility] here to set up home oxygen
== END 2022-07-21 20:38 | disposition left against medical advice (07) ==
PROVIDERS: Emergency Provider Emergency Medicine; PCP Physician Assistant
DX: J18.9 Pneumonia, unspecified organism (principal); J96.01 Acute respiratory failure with hypoxia; J44.9 Chronic obstructive pulmonary disease, unspecified; F17.210 Nicotine dependence, cigarettes, uncomplicated; I25.10 Atherosclerotic heart disease of native coronary artery without angina pectoris; G89.4 Chronic pain syndrome; I10 Essential (primary) hypertension; E78.5 Hyperlipidemia, unspecified; G47.00 Insomnia, unspecified; R91.8 Other nonspecific abnormal finding of lung field; Z20.822 Contact with and (suspected) exposure to COVID-19
CPT/HCPCS: 70450; 71045; 80048; 80076; 81001; 82803; 83605; 83880; 84484; 85007; 85025; 85610; 87040; 87086; 93005; 96372; 96374; 96375; 99285; C9803; J0456; J0696; U0003; U0005

== ENCOUNTER 2022-08-15 19:09 | Observation (INO) | payer MEDICARE, MEDICAID, SELFPAY ==
[2022-08-15 19:10] VITALS: BP 130/67; PULSE 115; RESP 29; TEMP 37.2; O2SAT 90; BMI 22.1
--- NOTE | 2022-08-15 19:12 | HMH.EDGENADL ---
Discharge Plan Disposition Chief Complaint: Fall Prescriptions Prescriptions: No Action verapamil 180 mg capsule,ext rel. pellets 24 hr 180 mg PO DAILY Qty: 90 3RF aspirin 325 mg tablet 325 mg PO DAILY Qty: 90 3RF tiotropium bromide 18 mcg capsule, w/inhalation device 1 cap INHALATION DAILY Qty: 30 12RF Rx Instructions: puncture 1 cap using device; one dose = 2 inhalations ergocalciferol (vitamin D2) 1,250 mcg (50,000 unit) capsule 1,250 mcg PO DAILY fluticasone furoate-vilanterol 200-25 mcg/dose blister with device 1 inh INHALATION DAILY Qty: 28 12RF albuterol sulfate 90 mcg/actuation HFA aerosol inhaler 2 inh inhalation Q4-6H PRN (Reason: shortness of breath or wheezing) Qty: 8.5 3RF meclizine 25 mg tablet 25 mg PO TID PRN (Reason: dizziness) Qty: 30 0RF methylprednisolone [Medrol (Ted)] 4 mg tablets,dose pack 4 mg PO PER PKG DIR 6 Days Qty: 21 0RF doxycycline hyclate 100 mg capsule 100 mg PO BID Qty: 20 0RF atorvastatin 10 mg tablet See Rx Instructions .Route .COMPLEX Qty: 90 0RF Rx Instructions: TAKE 1 TABLET BY MOUTH AT BEDTIME cholecalciferol (vitamin D3) 25 mcg (1,000 unit) capsule 25 mcg PO DAILY Qty: 90 3RF lisinopril 2.5 mg tablet 2.5 mg PO DAILY Qty: 90 3RF ipratropium-albuterol 0.5 mg-3 mg(2.5 mg base)/3 mL solution for nebulization See Rx Instructions .ROUTE .COMPLEX Qty: 180 5RF Dose Instruction: USE 1 AMPULE IN NEBULIZER THREE TIMES DAILY NEEDED FOR SHORTNESS OF BREATH FOR WHEEZING Rx Instructions: USE 1 AMPULE IN NEBULIZER THREE TIMES DAILY NEEDED FOR SHORTNESS OF BREATH FOR WHEEZING gabapentin 600 mg tablet 600 mg PO TID Qty: 90 2RF clonazepam [Klonopin] 1 mg tablet 1 mg PO BID Qty: 60 0RF quetiapine 25 MG tablet 25 mg PO HS metoprolol succinate 50 MG tablet extended release 24 hr 50 mg PO DAILY clopidogrel 75 MG tablet See Rx Instructions .Route .COMPLEX Rx Instructions: Take 1 tablet by mouth once daily buspirone 10 MG tablet See Rx Instructions .Route .COMPLEX Rx Instructions: TAKE 1 TABLET BY MOUTH THREE TIMES DAILY FOR BEHAVIOR/MOOD umeclidinium 62.5 MCG blister with device 1 inh INHALATION Q24H Clinical Impressions Clinical Impression: Acute exacerbation of chronic obstructive pulmonary disease, Respiratory failure, Fall, Generalized weakness Discharge ED Provider: Nikki Salgado General Adult HPI General Chief complaint: Fall Stated complaint: Fall Time Seen by Provider: 08/15/22 19:12 History of Present Illness HPI narrative: Patient is a 67-year-old female presenting with profound weakness and respiratory distress. She was seen [address] Guerra with hypoxic respiratory failure and left AGAINST MEDICAL ADVICE. Unclear as to whether or not she was able to get her prescription filled but she continued to have worsening respiratory symptoms and followed up with Dr. García's office and was seen by Stephy and was again treated with for pneumonia. All this was done outpatient at this point. She states that she has been profoundly weak over the last 24 hours when outside today to take her dog out at which point she fell mechanically. She was unable to get up due to her weakness. She denies any injuries. She states that she did not have any loss of consciousness or syncope. She states that she was so weak that she had to scoot her way back into the house. At this point she called 911 who brought her in. She had very long oxygen tubing the specimen 2 L nasal cannula at home and her oxygen saturations were 90% when he first picked her up. She had increased work of breathing and a DuoNeb was in process when she arrived in the ED. She states that she has no focal weakness and that she is globally weak and that she is only worsened over the last month. Her daughter is also at the bedside and states that same thing. Related Data
--- NOTE | 2022-08-15 19:14 | XR_ITS ---
PROCEDURE INFORMATION: Exam: XR Chest Exam date and time: 08/15/2022 7:39 PM Age: 67 years old Clinical indication: Dyspnea TECHNIQUE: Imaging protocol: Radiologic exam of the chest. Views: 1 view. COMPARISON: CR XR CHEST PORTABLE 07/21/2022 4:28 PM FINDINGS: Lungs: Mild interstitial coarsening. Hyperinflation. No consolidation. Pleural spaces: No pneumothorax. Heart/Mediastinum: No cardiomegaly. Vasculature: Aortic calcifications. Bones/joints: Degenerative changes of the shoulders. IMPRESSION: Chronic changes without acute process.
--- NOTE | 2022-08-15 19:18 | ECG_ITS ---
APPROVED REPORT Exam: Resting ECG HR:121 bpm ECG Measurements Heart Rate [address] 100 P 84 QRSd 84 QRS 78 QT 323 T 84 QTc 395 Conclusion SINUS TACHYCARDIA WITH SHORT CT INTERVAL POSSIBLE RIGHT VENTRICULAR CONDUCTION DELAY [RSR (QR) IN V1/V2] ABNORMAL RHYTHM ECG UNCONFIRMED REPORT Electronically signed by : Edgard Dasilva MD 08/16/2022 20:31:08
--- NOTE | 2022-08-15 19:25 | PC.NURSE ---
Called respiratory & lab to notify them of VBG order, RT will collect specimen from lab department
[2022-08-15 19:32] LABS: VBG HCO3 27.2 mmol/L (23-30); VBG Oxygen Saturation 96.9 % (50-70); VBG PCO2 40.8 mmol/L (35-51); VBG PH 7.44 mmol/L (7.31-7.41); VBG PO2 85.2 mmol/L (28-40); VBG Total CO2 28.4 mmol/L (23-27)
[2022-08-15 19:37] LABS: Coronavirus 19, PCR Not Detected (NotDetected); Influenza A, PCR Not Detected (NotDetected); Influenza B, PCR Not Detected (NotDetected)
[2022-08-15 19:43] LABS: Basophils # 0.1 K/mm3 (0-0.2); Basophils % 1.4 % (0.1-2.0); Eosinophils # 0.1 K/mm3 (0.0-0.4); Eosinophils % 1.1 % (0.1-12.0); Hematocrit 42.8 % (37.0-47.0); Hemoglobin 13.9 g/dL (12.2-16.2); Lymphocytes # 0.7 K/mm3 (0.7-4.5); Lymphocytes % 10.1 % (10-50); Mean Corpuscular HGB Conc 32.5 g/dL (31.8-35.4); Mean Corpuscular Hemoglobin 28.4 pg (27.0-31.2); Mean Corpuscular Volume 87.4 fl (81-99); Mean Platelet Volume 8.9 fl (7.4-10.4); Monocytes # 0.8 K/mm3 (0.1-1.0); Monocytes % 10.9 % (1.7-9.3); Neutrophils # 5.4 K/mm3 (1.8-7.8); Neutrophils % 76.5 % (37.0-80.0); Platelet Count 239 K/mm3 (142-424); Red Cell Distribution Width 13.4 % (11.5-17.5); White Blood Count 7.1 K/mm3 (4.8-10.8)
[2022-08-15 19:46] LABS: Lactic Acid 0.8 mmol/L (0.7-2.1)
[2022-08-15 19:47] LABS: Alanine Aminotransferase 19 U/L (12-78); Albumin Level 3.8 g/dl (3.5-5.0); Albumin/Globulin Ratio 1.3 (1.1-1.8); Alkaline Phosphatase 136 U/L (38-126); Aspartate Amino Transferase 26 U/L (14-36); Bilirubin,Total 0.6 mg/dl (0.2-1.3); Blood Urea Nitrogen 18 mg/dl (7-17); Calcium 8.4 mg/dl (8.4-10.2); Carbon Dioxide 28 mmol/L (22.0-30.0); Chloride 100 mmol/L (98-107); Creatinine Clearance Estimated 48 mL/min (50-200); Estimated Glomerular Filt Rate 62 ml/min (>60); GFR (African American) 75 ML/MIN (>60); Globulin 2.9 g/dL (1.3-3.2); Glucose 103 mg/dl (74-100); Sodium 132 mmol/L (136-145); Total Protein,Serum 6.7 g/dl (6.3-8.2)
[2022-08-15 19:51] LABS: D-Dimer 0.97 ug/mL (0.0-0.5)
[2022-08-15 19:52] VITALS: PULSE 113
--- NOTE | 2022-08-15 19:55 | CT_ITS ---
PROCEDURE INFORMATION: Exam: CTA Chest With Contrast Exam date and time: 08/15/2022 7:14 PM Age: 67 years old Clinical indication: Dyspnea and shortness of breath; Additional info: Dyspnea, elevated d-dimer TECHNIQUE: Imaging protocol: Computed tomographic angiography of the chest with contrast. 3D rendering (Not supervised by radiologist): MIP and/or 3D reconstructed images were created by the technologist. Radiation optimization: All CT scans at this facility use at least one of these dose optimization techniques: automated exposure control; mA and/or kV adjustment per patient size (includes targeted exams where dose is matched to clinical indication); or iterative reconstruction. Contrast material: ISOVUE; Contrast volume: 70 ml; Contrast route: INTRAVENOUS (IV); REPORTING DATA: Count of CT and Cardiac NM exams in prior 12 months: This patient has received 2 known CTs and 0 known cardiac nuclear medicine studies in the 12 months prior to the current study. COMPARISON: CT ANGIO CHEST PE PROTOCOL 09/28/2021 1:54 PM FINDINGS: Pulmonary arteries: Normal. No pulmonary emboli. Aorta: No aortic aneurysm. No aortic dissection. Lungs: Emphysema. Minimal streaky opacity within the lingula which is similar to prior examination measuring up to 9 x 15 mm in short axis dimension. No lobar consolidation. Pleural spaces: No pneumothorax. No pleural effusion. Heart: No cardiomegaly. No pericardial effusion. Lymph nodes: Borderline mediastinal nodes measuring up to 9 mm. Bones/joints: No acute fracture. Soft tissues: No significant swelling. IMPRESSION: Emphysema with minimal streaky opacity within the lingula which is similar to prior examination. Differential would include chronic scarring however if there is concern for malignancy, PET-CT may be warranted for further evaluation.
--- NOTE | 2022-08-15 19:55 | PC.NURSE ---
Dr. Salgado s/w Jerry Couch APRN for admission.
--- NOTE | 2022-08-15 19:59 | PC.NURSE ---
Called storeroom supervisor for bed assignment.
--- NOTE | 2022-08-15 19:59 | PC.NURSE ---
Patient admitted to [facility] to service of hospitalist with dx of PNA, COPD with Exacerbation and SIRS.
[2022-08-15 20:00] LABS: Troponin I 0.11 ng/ml (0.00-0.034)
--- NOTE | 2022-08-15 20:08 | PC.NURSE ---
patient gone to RAD at this time.
--- NOTE | 2022-08-15 20:19 | PC.NURSE ---
patient back in room
--- NOTE | 2022-08-15 20:19 | PC.NURSE ---
hospitalist in room talking to patient at this time
--- NOTE | 2022-08-15 20:34 | EXP.HP ---
History of Present Illness *Admission Date: 08/15/22 *Reason for visit:: Shortness of air, weakness, cough *History of present illness: Ms. Hurst is a 67-year-old female with a past medical history of COPD, home oxygen dependent at 2L, chronic tobacco use, reports >50 pack year history, CAD, PAD, HTN and Hyperlipidemia. She presents to [facility] with ongoing shortness of air, weakness and cough > 1 month duration. She is noted to be seen in the ER with similar presentation around 1 month ago and refused admission. She reports that she has been seen by her PCP and diagnosed with Pneumonia and took antibiotics, most recent Doxycycline with no improvement of symptoms. In the ER, the patient underwent a Cxray that showed no acute cardiopulmonary process. VBG was unremarkable. CBC and CMP was unremarkable. EKG showed ST with rate in 110's with no ST segment elevation or depresion. D-dimer was elevated at 0.97 and CTA of the chest was performed and is currently pending. Troponin was elevated at 0.11. Covid and Flu testing were negative. In the ER, the patient received Rocephin 1 gram, Azithromycin 500 mg, Duoneb and Methylprednisolone. The patient will be admitted with initial impression: SIRS, Acute Exacerbation of COPD, Elevated Troponin. She will have full respiratory panel performed, CTA of the chest will be evaluated and treatment for any abnormalities will be initiated, we will monitor and trend troponin and monitor patient on Telemetry. The plan of care was discussed with the patient and daughter at bedside. Both verbalized understanding and agreement with the plan of care. [facility] Disclaimer: The information contained in this section may have been updated after the patient was seen, as this information can be updated by other users. Medical History (Updated 08/15/22 @ 21:41 by Xochitl Plaza RN) Hampton's palsy CAD (coronary artery disease) Chronic pain COPD exacerbation Depression H/O Hampton's palsy HLD (hyperlipidemia) HTN (hypertension) Hypertrophic obstructive cardiomyopathy Insomnia Lung nodule seen on imaging study PAD (peripheral artery disease) Presence of arterial stent PTSD (post-traumatic stress disorder) Pulmonary nodule Sinus tachycardia Vitamin D deficiency Family History (Updated 08/15/22 @ 21:40 by Xochitl Plaza RN) Family history of hypertension Social History (Updated 08/15/22 @ 21:41 by Xochitl Plaza RN) Smoking Status: Current every day smoker tobacco type: cigarettes packs per day: 1 pack-years: 52 second hand exposure: No alcohol intake: never substance use type: denies use current occupational status: retired Travel in the last 8 weeks: None household members: none housing: house Review of Systems Review of Systems Review of systems:: pertinent systems reviewed and negative unless documented below Constitutional Constitutional: Reports weakness Eyes Eyes: Reports system reviewed and no additional complaints, except as documented ENT Ears, Nose, Mouth, and Throat: Reports system reviewed and no additional complaints, except as documented *Cardiovascular Cardiovascular: Reports system reviewed and no additional complaints, except as documented and Reports dyspnea *Respiratory Respiratory: Reports cough and Reports dyspnea *Gastrointestinal Gastrointestinal: Reports system reviewed and no additional complaints, except as documented *Genitourinary Genitourinary: Reports system reviewed and no additional complaints, except as documented *Musculoskeletal Musculoskeletal: Reports system reviewed and no additional complaints, except as documented Integumentary/Breasts Skin/Breast: Reports system reviewed and no additional complaints, except as documented *Neurologic Neurologic: Reports system reviewed and no additional complaints, except as documented and Reports weakness Psychiatric Psychiatric: Reports system reviewed and no driss
[2022-08-15 20:41] LABS: Adenovirus,PCR Not Detected (NotDetected); Bordetella Pertussis Not Detected (NotDetected); Chlamydophila Pneumoniae, PCR Not Detected (NotDetected); Coronavirus 19, PCR Not Detected (NotDetected); Coronavirus 229E Not Detected (NotDetected); Coronavirus NL63 Not Detected (NotDetected); Coronavirus OC43 Not Detected (NotDetected); Human Metapneumovirus Not Detected (NotDetected); Influenza A, PCR Not Detected (NotDetected); Influenza AH1, 2009 Not Detected (NotDetected); Influenza AH1, PCR Not Detected (NotDetected); Influenza AH3,PCR Not Detected (NotDetected); Influenza B, PCR Not Detected (NotDetected); Mycoplasma Pneumoniae, PCR Not Detected (NotDetected); Parainfluenza 1, PCR Not Detected (NotDetected); Parainfluenza 2, PCR Not Detected (NotDetected); Parainfluenza 3, PCR Not Detected (NotDetected); Parainfluenza 4, PCR Not Detected (NotDetected); Respiratory Syncytial Virus Not Detected (NotDetected)
--- NOTE | 2022-08-15 20:47 | PC.NURSE ---
Attempted to call report. Nurse not available and will call back
--- NOTE | 2022-08-15 20:59 | PC.NURSE ---
Report to CHRISTINE Leung. Awaiting 2nd floor for transport
[2022-08-15 21:00] VITALS: BP 141/71; PULSE 111; RESP 19; TEMP 37.2; O2SAT 96
[2022-08-15 21:06] VITALS: PULSE 90
[2022-08-15 21:31] VITALS: BP 139/68; PULSE 107; RESP 18; TEMP 36.9; O2SAT 95; BMI 20.6
[2022-08-15 22:48] LABS: Coronovirus HKU1,PCR Detected (NotDetected); Rhinovirus/Enterovirus Detected (NotDetected)
[2022-08-15 22:55] LABS: Troponin I 0.08 ng/ml (0.00-0.034)
[2022-08-15 23:00] VITALS: O2SAT 94
[2022-08-16] VITALS (7 sets, daily range): BP systolic 98–103; BP diastolic 47–58; PULSE 70–93; RESP 16–22; TEMP 36.3–37.9; O2SAT 92–95; BMI 20.6
[2022-08-16 00:39] LABS: ABG Base Excess -1.7 mmol/L (-2.4-2.3); ABG Oxygen Saturation 93 % (90-100); ABG PCO2 44.6 mmhg (35.0-45.0); ABG PH 7.35 mmol/L (7.35-7.45); ABG PO2 68.1 mmhg (80-100); ABG TCO2 25.3 mmhg (23-27)
[2022-08-16 00:40] LABS: Allen's Test Acceptable; Source Right Radial
[2022-08-16 00:42] LABS: Troponin I 0.09 ng/ml (0.00-0.034)
--- NOTE | 2022-08-16 07:30 | HMH.PHAINT1 ---
Pharmacy Intervention Comments: Medication reconciliation completed using list from recent PCP office visit (08/09/22)
--- NOTE | 2022-08-16 09:15 | CA_ITS ---
APPROVED REPORT EXAM: Comprehensive 2D, Doppler, and color-flow Echocardiogram Angiography Technologist: BHAVNA Akhtar, RVS Ht: 5 ft 2 in Wt: 116lbs BSA: 1.52 BP: 120/80 mmHg Indications: Influenza, SOA, CAD, COPD, Smoker, PAD Echo Enhancing Agent Comments: Poor acousticw indows due to lung impedence, Low paraternal windows. 2D Dimensions Aortic Root 2.58 cm LA Volume 30.60 mL Left Atrium 1.56 cm LA Volume Index 20.10 mL/m2 (M/F) 16-34 LVOT 1.75 cm (M/F) 1.5-2.5 M-Mode Dimensions RVDd 1.55 cm (0.9-2.6) LA Diam 2.32 cm (1.9-4.0) LVDd 3.10 cm (3.5-5.7) Ao Diam 2.79 cm (2.0-3.7) LVDs 1.47 cm (3.5-5.7) IVSd 0.83 cm (0.6-1.1) PWd 0.86 cm (0.6-1.1) EF (Teich) 85.00% EPSs 0.37 cm FS 52.60% EDV (Teich) 37.90 mL TAPSE 1.85 (<1.7) ESV (Teich) 5.70 mL LV Diastology E Decel Time 280.00 (160-240 msec) E/A Ratio 0.81 MED E' 4.20 (< 7 cm/sec) MED A' 9.50 cm/s E'/MED E' Ratio 22.10 (>14) LAT E' 5.40 (<10 cm/sec) LAT A' 8.20 cm/s E/LAT E' Ratio 17.19 (>14) Aortic Valve LVOT Max 95.00 (70-110 cm/s) LVOT VTI 20.58 cm AoV Peak Ge. 122.00 (50-130 cm/s) AO Peak GR. 6.00 mmHg AO Mean GR. 2.90 (<5 mmHg) AO VTI 21.22 (18-25 cm) ANTONI (VTI) 2.33 (2.5-4.5 cm2) Mitral Valve MV A Velocity 115.00 (40-130 cm/s) E/A Ratio 0.81 MV Decel. Time 280.00 (160-240 ms) Pulmonary Valve PV Peak Velocity 88.00 (50-150 cm/s) Tricuspid Valve TR P. Velocity 163.00 cm/s RAP Estimate 10.00 mmHg RVSP 20.60 mmHg Left Ventricle Technically difficult study because of the patient factors and poor acoustic windows. Left atrium is mildly enlarged, left ventricle is normal size, estimated ejection fraction 55% with no regional wall motion abnormality, grade 1 diastolic dysfunction seen with tissue Doppler evidence of trace left atrial pressure. Right Ventricle Right atrium and right ventricle are mildly enlarged with normal contractility. Aortic Valve Aortic valve is minimally thickened and fibrosed there is no aortic stenosis aortic insufficiency. Mitral Valve Mitral valve is grossly normal, there is trace mitral regurgitation. Tricuspid Valve Tricuspid valve is grossly normal, there is trace tricuspid regurgitation, tricuspid regurgitation jet velocity is inadequate for calculation of the right ventricular systolic pressure. Pulmonic Valve Pulmonic valve is poorly visualized. Great Vessels Aortic root is normal size. Inferior vena cava is poorly visualized. Pericardium No significant pericardial effusion noted. Conclusion 1. Mild biatrial enlargement, normal left ventricular size, mild concentric left ventricular hypertrophy, estimated ejection fraction 55% with no regional wall motion abnormality, grade 1 diastolic dysfunction seen with tissue Doppler evidence of late left atrial pressure. 2. Mildly enlarged right ventricle with normal contractility. 3. Trace mitral and tricuspid regurgitation. 4. No significant pericardial effusion noted. 5. Inferior vena cava is poorly visualized. Electronically signed by : Lul Bird MD 08/16/2022 19:34:19
--- NOTE | 2022-08-16 09:26 | EXP.CARD.CON ---
History of Present Illness History of Present Illness Consult date: 08/16/22 Requesting physician: Joshua Baeza Consult reason: shortness of breath Chief complaint: SOA, weakness, elevated troponins Additional Medical History:: 1. CAD A. [facility], 09/2016, ANGIOGRAPHIC RESULTS: 1.? The left main artery? normal 2.? The left anterior descending artery? is a small caliber vessel and has a mid vessel 40% concentric stenosis. The large first diagonal artery has a proximal 30-40% stenosis 3.? The circumflex artery? is a nondominant vessel with proximal concentric 20% stenosis 4.? The right coronary artery is a very large dominant vessel and has 20% stenoses in the proximal area with a 30% calcified mid vessel stenosis. 5.? The FREEMAN ventriculogram reveals hyperdynamic ventricle estimated at 85% with apical cavitary obliteration 6.? The left ventricular end-diastolic pressure 20 mmHg 7.? The suprarenal abdominal aorta is normal 8.? The mesenteric and renal arteries are normal 9.? The infrarenal abdominal aorta has 20 and 30% atheromatous plaque 10.? The right common iliac artery has a proximal eccentric 20-30% calcified stenosis with calcification running through its distal portion. The right internal iliac artery is subtotally occluded in its very proximal portion while the external iliac artery has a focal 99% subtotally occlusion. The right common femoral artery has 30 and 40% atheromatous plaque 11.? The left common iliac artery has a long proximal complex greater than 90% stenosis while the external iliac artery has 10-20% stenosis with subtotal occlusion of the internal iliac artery which is collateralized by thoracolumbar vessels. The left common iliac artery has mild nonflow limiting plaque ? IMPRESSION: 1.? Mild to moderate coronary artery disease as described above 2.? Apical hypertrophic obstructive cardiomyopathy with hyperdynamic ventricular function at 85% 3.? Elevated LVEDP 4.? 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 Successful stenting of the right common and external iliac arteries critical disease reduced to less than 10% with 2 bare-metal stents 1 self-expanding one balloon expanding as described above 6.? Persistent severe stenosis in the left common iliac artery B. Lexiscan Myoview, 05/2019, no ischemia with EF 65% 2. COPD A. with continued tobacco use 3. PAD A. BMS, 09/2016, right common and external iliac arteries B. BMS, 10/2016, left common iliac artery 4. Hypertension with history of apical hypertrophic obstructive cardiomyopathy, controlled with verapamil and beta-jeronimo therapy A. Echo, 05/2019, normal LV size, mild concentric LVH, EF greater than 65%, grade 1 DD. Mild MR and TR B. Echo, 03/15/2022, mild LAE, normal LV size, mild concentric LVH, EF 55% with no regional WMA. Grade 1 diastolic dysfunction. Trace MR and TR. 5. Hyperlipidemia A. on statin therapy 6. Carotid artery stenosis A. 10/2017, 08/2020, less than 20% JAE, 20 to 49% LICA 7. Admission for shortness of breath with combination of coronavirus and rhinovirus infection A. Elevated troponin History of present illness: Ms. Hurst is a 67-year-old female with a past medical history of COPD, home oxygen dependent at 2L, chronic tobacco use, reports >50 pack year history, CAD, PAD, HTN and Hyperlipidemia. She presents to [facility] with ongoing shortness of air, weakness and cough > 1 month duration.? She is noted to be seen in the ER with similar presentation around 1 month ago and refused admission.? She reports that she has been seen by her PCP and diagnosed with Pneumonia and took antibiotics, most recent Doxycycline with no improvement of symptoms.? In the ER, the patient underwent a Cxray that showed no acute cardiopulmonary process.? VBG was unremarkable.? CBC and CMP was unremarkable.? EKG showed ST with rate in 110's with no ST segment elevation or depresion.? D-dimer was elev
--- NOTE | 2022-08-16 10:42 | HMH.PTEV ---
Physical Therapy Evaluation Rehab PT IP Evaluation Start: 08/15/22 21:02 Freq: ONCE Status: Active Protocol: Document 08/16/22 10:39 AILEEN (Rec: 08/16/22 10:42 AILEEN [id number]) Subjective/History History History 67 yowf adm to [facility] with PNA, COPD exac, SIRS, general weakness. She uses O2 at home via [place] at all times at 2 L/min at baseline. SHe reports she lives with daughter, 3 steps to enter the home, and she is generally independent with all mobility. Subjective Subjective She reports feeling significantly better this am than she did yesterday. Rehab PT IP Eval Objective Appearance Patient Behavior Appropriate Patient Orientation Person,Place,Time Difficulty following instructions none Speech Pattern Clear Ambulation Patient Able to Ambulate Yes Ambulation Observation IP General Gait Pattern Observation No Deviations/Normal Ambulation Distance (feet) 30 Ambulation Assistive Device None Ambulation Ability Independent Balance Ability to Arise Able, uses arms to help Sitting Balance Steady, safe Standing Balance Steady, wide stance Dynamic Sitting Balance Ability Good Dynamic Standing Balance Ability Good Transfers Bed Transfer Ability Independent Chair Transfer Ability Independent Sit to Stand Bed Transfer Ability Independent Sit to Stand Chair Transfer Ability Independent ROM All Extremities PT ROM Status WFL MMT All Extremities PT MMT WFL Rehab PT IP prob,goals,plan Problems Date of Evaluation: 08/16/22 Discharge Plan PT Discharge Plan Pt is currently at baseline for all mobility and is appropriate to return home once medically stable for d/c. G -code Required No Eval Complexity Eval Charge Codes 16283 - Moderate Complexity PHYSICIAN CERTIFICATION: I certify the specified therapy services for Johanny Hurst are required, authorized, and reviewed every 30 days.
--- NOTE | 2022-08-16 11:37 | EXP.DC.SUM ---
General Admission date:: 08/15/22 Discharge date: 08/16/22 HPI HPI HPI: Ms. Hurst is a 67-year-old female with a past medical history of COPD, home oxygen dependent at 2L, chronic tobacco use, reports >50 pack year history, CAD, PAD, HTN and Hyperlipidemia. She presents to [facility] with ongoing shortness of air, weakness and cough > 1 month duration. She is noted to be seen in the ER with similar presentation around 1 month ago and refused admission. She reports that she has been seen by her PCP and diagnosed with Pneumonia and took antibiotics, most recent Doxycycline with no improvement of symptoms. In the ER, the patient underwent a Cxray that showed no acute cardiopulmonary process. VBG was unremarkable. CBC and CMP was unremarkable. EKG showed ST with rate in 110's [address] no ST segment elevation or depresion. D-dimer was elevated at 0.97 and CTA of the chest was performed and is currently pending. Troponin was elevated at 0.11. Covid and Flu testing were negative. In the ER, the patient received Rocephin 1 gram, Azithromycin 500 mg, Duoneb and Methylprednisolone. The patient will be admitted with initial impression: SIRS, Acute Exacerbation of COPD, Elevated Troponin. She will have full respiratory panel performed, CTA of the chest will be evaluated and treatment for any abnormalities will be initiated, we will monitor and trend troponin and monitor patient on Telemetry. The plan of care was discussed with the patient and daughter at bedside. Both verbalized understanding and agreement with the plan of care. Hospital Course Hospital Course Hospital Course: 67-year-old female with past medical history of COPD, home oxygen dependent, chronic tobacco use, CAD, PAD presents with greater than 1-month non-productive cough, shortness of air and weakness - SIRS -COPD exacerbation Criteria met on admission HR 113, RR 29. Cultures obtained on admission. Initiated on ceftriaxone and azithromycin. Will complete full course of azithromycin for COPD exacerbation. Initiated on prednisone. Will complete 5 days of steroids. No signs of consolidation or pneumonia on admission. Respiratory panel positive for coronavirus (non-COVID) and enterovirus. Likely the etiology of her COPD exacerbation. On baseline oxygen at 2 L at time of discharge. Follow-up with PCP in the next 1 to 2 weeks for reevaluation. - Elevated Troponin/NSTEMI -Hypertension -Hyperlipidemia -CAD/PAD In the setting of COPD exacerbation and illness with 2 viral infections. Likely type II NSTEMI. Echo obtained, preliminary read with preserved ejection fraction. Denies any chest pain. Cardiology was consulted during admission. Recommend continuing her aspirin, Plavix, lisinopril and metoprolol along with verapamil for blood pressure and CAD. No other interventions at this time. - Tobacco Use Disorder Reports 1 ppd started around age 15, Encouraged cessation. Complicates the ability for her COPD to be controlled or improved Medically stable for discharge home. Evaluated by PT and OT on day of discharge. Patient is independent and appropriate to return home with home health. Home health order placed. Exam Data for Last 24 hours Vital signs and Labs for Last 24 Hours: Temp Pulse Resp BP Pulse Ox 97.5 F L 78 22 103/47 L 94 L 08/16/22 08:00 08/16/22 09:45 08/16/22 09:45 08/16/22 08:00 08/16/22 08:00 Laboratory Results - last 24 hr 08/15/22 19:10: WBC 7.1, RBC 4.90, Hgb 13.9, Hct 42.8, MCV 87.4, MCH 28.4, MCHC 32.5, RDW 13.4, Plt Count 239, MPV 8.9, Neut % (Auto) 76.5, Lymph % (Auto) 10.1, Rhea % (Auto) 10.9 H, Eos % (Auto) 1.1, Baso % (Auto) 1.4, Neut # (Auto) 5.4, Lymph # (Auto) 0.7, Rhea # (Auto) 0.8, Eos # (Auto) 0.1, Baso # (Auto) 0.1 08/15/22 19:10: D-Dimer 0.97 H 08/15/22 19:10: Sodium 132 L, Potassium 4.0, Chloride 100, Carbon Dioxide 28, Anion Gap 8.0, BUN 18 H, Creatinine 0.90, Estimated Creat Clear 48, Estimate
--- NOTE | 2022-08-16 12:41 | HMH.PHAINT1 ---
Pharmacy Intervention Comments: Discharge medications discussed with patient. Patient verbalized understanding and had no questions at this time
--- NOTE | 2022-08-16 14:14 | SW/DCPLANNER ---
[facility]/ [facility] stated that services will begin 08/18/15 for this patient. Patient will discharge home today.
== END 2022-08-16 13:15 | disposition home health service (06) ==
LOC: ER 19:13 → 2ND 21:10
PROVIDERS: Nurse Practitioner Family; Admitting Provider Internal Medicine Adolescent Medicine; Emergency Provider Student in an Organized Health Care Education/Training Program; PCP Physician Assistant; Visit Provider Internal Medicine Adolescent Medicine
DX: J96.01 Acute respiratory failure with hypoxia; F17.210 Nicotine dependence, cigarettes, uncomplicated; J44.1 Chronic obstructive pulmonary disease with (acute) exacerbation; I10 Essential (primary) hypertension; Z79.899 Other long term (current) drug therapy; Z79.01 Long term (current) use of anticoagulants; Z99.81 Dependence on supplemental oxygen; I42.1 Obstructive hypertrophic cardiomyopathy; Z20.822 Contact with and (suspected) exposure to COVID-19
CPT/HCPCS: G0378; 36415; 71045; 71275; 80053; 82803; 83605; 84484; 85025; 85378; 87040; 87070; 87205; 87581; 87632; 87798; 93005; 93306; 94640; 97162; 99285; C9803; J0456; J0696; Q9967; U0003; U0005

== ENCOUNTER → 2022-09-20 12:17 | Outpatient (CLI) | payer MEDICARE, MEDICAID, SELFPAY | PROVIDERS: PCP Physician Assistant; Visit Provider Nurse Practitioner Family | DX: E78.2 Mixed hyperlipidemia (principal); I10 Essential (primary) hypertension; I11.9 Hypertensive heart disease without heart failure; I25.10 Atherosclerotic heart disease of native coronary artery without angina pectoris; I42.1 Obstructive hypertrophic cardiomyopathy; I73.9 Peripheral vascular disease, unspecified; R77.8 Other specified abnormalities of plasma proteins | CPT/HCPCS: 78452; 93017; A9502; J2785 ==

== ENCOUNTER → 2022-11-07 13:00 | Outpatient (CLI) | payer MEDICARE, MEDICAID, SELFPAY ==
[2022-11-07 18:22] LABS: Basophils % 0.6 % (0.1-2.0); Eosinophils # 0.3 K/mm3 (0.0-0.4); Eosinophils % 4.2 % (0.1-12.0); Hematocrit 37.4 % (37.0-47.0); Hemoglobin 11.8 g/dL (12.2-16.2); Lymphocytes # 1.4 K/mm3 (0.7-4.5); Lymphocytes % 21.6 % (10-50); Mean Corpuscular HGB Conc 31.5 g/dL (31.8-35.4); Mean Corpuscular Hemoglobin 28.9 pg (27.0-31.2); Mean Corpuscular Volume 91.6 fl (81-99); Monocytes # 0.4 K/mm3 (0.1-1.0); Monocytes % 6.7 % (1.7-9.3); Neutrophils # 4.4 K/mm3 (1.8-7.8); Platelet Count 193 K/mm3 (142-424); Red Blood Count 4.08 M/mm3 (4.20-5.40); White Blood Count 6.5 K/mm3 (4.8-10.8)
[2022-11-07 18:23] LABS: Alanine Aminotransferase 22 U/L (12-78); Albumin Level 3.9 g/dl (3.5-5.0); Albumin/Globulin Ratio 1.3 (1.1-1.8); Alkaline Phosphatase 128 U/L (38-126); Anion Gap 14.7 mEq/L (5-15); Aspartate Amino Transferase 30 U/L (14-36); Bilirubin,Total 0.5 mg/dl (0.2-1.3); Blood Urea Nitrogen 17 mg/dl (7-17); Calcium 8.9 mg/dl (8.4-10.2); Carbon Dioxide 26 mmol/L (22.0-30.0); Chloride 105 mmol/L (98-107); Chol/HDL Ratio 2.2 (1-3.5); Cholesterol 154 mg/dl (140-200); Estimated Glomerular Filt Rate 83 ml/min (>60); GFR (African American) 101 ML/MIN (>60); Glucose 87 mg/dl (74-100); HDL Cholesterol 70 mg/dl (40-60); Potassium 3.7 mmoL/L (3.5-5.1); Sodium 142 mmol/L (136-145); Total Protein,Serum 6.9 g/dl (6.3-8.2); Triglycerides 119 mg/dl (30-150); VLDL Cholesterol 24 mg/dL (0-40)
[2022-11-07 18:34] LABS: Direct LDL Cholesterol 62.14 mg/dL (100-129)
[2022-11-07 18:44] LABS: 25-OH Vitamin D, Total < 12.8 ng/mL (30-100)
[2022-11-07 18:54] LABS: Thyroid Stimulating Hormone 1.46 uIU/mL (0.465-4.68)
[2022-11-07 19:13] LABS: Vitamin B12 470 pg/mL (239-931)
== END ==
PROVIDERS: PCP Physician Assistant; Visit Provider Physician Assistant
DX: E55.9 Vitamin D deficiency, unspecified (principal); I11.9 Hypertensive heart disease without heart failure; G47.00 Insomnia, unspecified; R29.6 Repeated falls; N39.0 Urinary tract infection, site not specified
CPT/HCPCS: 80053; 80061; 82306; 82607; 84443; 85025; 87086; 87088

== ENCOUNTER 2022-11-08 17:32 | Inpatient (IN) | payer MEDICARE, MEDICAID, SELFPAY ==
[2022-11-08] VITALS (10 sets, daily range): BP systolic 130–196; BP diastolic 63–90; PULSE 124–135; RESP 24–46; TEMP 36.9–38.9; O2SAT 93–97; BMI 21.6; BMI 19.9
--- NOTE | 2022-11-08 17:42 | HMH.EDGENADL ---
Discharge Plan Disposition Patient Disposition: Admitted Prescriptions Prescriptions: No Action aspirin 325 mg tablet 325 mg PO DAILY Qty: 90 3RF gabapentin 600 mg tablet 600 mg PO TID Qty: 90 2RF albuterol sulfate 90 mcg/actuation HFA aerosol inhaler 2 inh inhalation Q4-6H PRN (Reason: shortness of breath or wheezing) Qty: 8.5 3RF metoprolol succinate [Toprol XL] 100 mg tablet extended release 24 hr 50 mg PO DAILY phenazopyridine [Pyridium] 200 mg tablet 200 mg PO TID PRN (Reason: pain) Qty: 6 0RF nitrofurantoin monohyd/m-cryst [Macrobid] 100 mg capsule 100 mg PO BID 7 Days Qty: 14 0RF Rx Instructions: must administer with a meal/food atorvastatin 10 mg tablet 10 mg PO HS Qty: 90 3RF clonazepam [Klonopin] 1 mg tablet 1 mg PO BID Qty: 60 2RF clopidogrel 75 mg tablet 75 mg PO DAILY Qty: 90 0RF Rx Instructions: Take 1 tablet by mouth once daily ipratropium-albuterol 0.5 mg-3 mg(2.5 mg base)/3 mL solution for nebulization See Rx Instructions .ROUTE .COMPLEX Qty: 180 0RF Dose Instruction: INHALE CONTENTS OF 1 VIAL VIA NEBULIZER 3 TIMES DAILY NEEDED FOR SHORTNESS OF BREATH OR WHEEZING Rx Instructions: INHALE CONTENTS OF 1 VIAL VIA NEBULIZER 3 TIMES DAILY NEEDED FOR SHORTNESS OF BREATH OR WHEEZING ergocalciferol (vitamin D2) 1,250 mcg (50,000 unit) capsule 1,250 mcg PO WEEKLY Qty: 14 3RF cholecalciferol (vitamin D3) 50 mcg (2,000 unit) capsule 50 mcg PO DAILY Qty: 90 3RF quetiapine 25 MG tablet 25 mg PO HS lisinopril 2.5 mg tablet 2.5 mg PO DAILY fluticasone furoate-vilanterol [Breo Ellipta] 200-25 mcg/dose blister with device 1 inh INHALATION DAILY tiotropium bromide 18 mcg Capsule, W/Inhalation Device 1 cap INHALATION DAILY Rx Instructions: puncture 1 cap using device; one dose = 2 inhalations umeclidinium 62.5 mcg/actuation Blister With Device 1 inh INHALATION Q24H ergocalciferol (vitamin D2) 1,250 mcg (50,000 unit) capsule 1,250 mcg PO WEEKLY Clinical Impressions Clinical Impression: Sepsis, Acute UTI Discharge ED Provider: Nikki Salgado General Adult HPI General Chief complaint: Shortness of Breath/Dyspnea Stated complaint: fever Time Seen by Provider: 11/08/22 17:42 History of Present Illness HPI narrative: Patient is a 67-year-old female brought in by EMS for multiple complaints. She is also now accompanied by her daughter patient and history was obtained primarily from the patient but also from the daughter and EMS. The patient was in her normal state of health was recently diagnosed with urinary tract infection and started on nitrofurantoin and Pyridium. This started last Monday her daughter stated that she saw her just 3 hours ago at 3 PM and she was completely normal without any symptoms. Subsequently over the last 3 hours the patient has developed difficulty breathing shaking chills nausea and generalized weakness. She has not had a fever that she is aware of but states that she has just felt horrible the last few hours. Denies any cough is chronically on home oxygen 2 L at home. Her only other symptoms right now from a local eye standpoint are dysuria and some suprapubic pain. Related Data Home Medications Medication Instructions Recorded Confirmed quetiapine 25 mg tablet 25 mg PO HS sleep 09/30/21 11/07/22 lisinopril 2.5 mg tablet 2.5 mg PO DAILY High blood pressure 08/15/22 11/07/22 ergocalciferol (vitamin D2) 1,250 1,250 mcg PO WEEKLY Supplement 08/16/22 11/07/22 mcg (50,000 unit) capsule fluticasone furoate 200 1 inh inhalation DAILY Breathing 08/16/22 11/07/22 mcg-vilanterol 25 mcg/dose problems inhalation powder (Breo Ellipta) tiotropium bromide 18 mcg capsule 1 cap inhalation DAILY Breathing 08/16/22 11/07/22 with inhalation device problems umeclidinium 62.5 mcg/actuation 1 inh inhalation Q24H Breathing 08/16/22 11/07/22 blister powder for in
--- NOTE | 2022-11-08 17:52 | XR_ITS ---
PROCEDURE INFORMATION: Exam: XR Chest Exam date and time: 11/08/2022 6:02 PM Age: 67 years old Clinical indication: Dyspnea TECHNIQUE: Imaging protocol: Radiologic exam of the chest. Views: 1 view. COMPARISON: CR XR CHEST PORTABLE 08/15/2022 7:39 PM FINDINGS: Lungs: Pleuroparenchymal scarring of the lung bases with subsegmental atelectasis is present without large consolidations or pleural effusions. There are moderate centrilobular emphysematous changes of the lungs with an apical gradient. Pleural spaces: See Lungs finding. Heart/Mediastinum: Unremarkable. No cardiomegaly. Bones/joints: Unremarkable. IMPRESSION: 1. Pleuroparenchymal scarring of the lung bases with subsegmental atelectasis is present without large consolidations or pleural effusions. 2. There are moderate centrilobular emphysematous changes of the lungs with an apical gradient.
[2022-11-08 18:04] LABS: Basophils % 0.1 % (0.1-2.0); Eosinophils # 0.2 K/mm3 (0.0-0.4); Eosinophils % 2.5 % (0.1-12.0); Hematocrit 43.7 % (37.0-47.0); Lymphocytes # 0.5 K/mm3 (0.7-4.5); Lymphocytes % 6.8 % (10-50); Mean Corpuscular HGB Conc 32.1 g/dL (31.8-35.4); Mean Corpuscular Hemoglobin 28.9 pg (27.0-31.2); Mean Corpuscular Volume 90.1 fl (81-99); Mean Platelet Volume 8.9 fl (7.4-10.4); Monocytes # 0.3 K/mm3 (0.1-1.0); Monocytes % 3.5 % (1.7-9.3); Neutrophils # 6.6 K/mm3 (1.8-7.8); Neutrophils % 87.1 % (37.0-80.0); Platelet Count 207 K/mm3 (142-424); Red Blood Count 4.85 M/mm3 (4.20-5.40); Red Cell Distribution Width 13.2 % (11.5-17.5); White Blood Count 7.6 K/mm3 (4.8-10.8)
[2022-11-08 18:07] LABS: MANUAL DIFFERENTIAL MANUAL DIFFERENTIAL (MANUAL DIFF)
[2022-11-08 18:33] LABS: Eosinophils % 4 % (0-3); Lymphocytes % 11 % (10-50); Monocytes % 3 % (2-9); Neutrophils % 81 % (42-76); Total Cells Counted 100
[2022-11-08 18:33] LABS: Coronavirus 19, PCR Not Detected (NotDetected); Influenza A, PCR Not Detected (NotDetected); Influenza B, PCR Not Detected (NotDetected); Microscopic, Urine URINE MICROSCOPIC (MICROSCOPIC)
[2022-11-08 18:34] LABS: Platelet Estimate Normal; RBC Morphology Normal
[2022-11-08 18:35] LABS: Anisocytosis 1+
[2022-11-08 18:42] LABS: VBG Base Excess 1.9 mmol/L (-2.4-2.3); VBG HCO3 26.9 mmol/L (23-30); VBG Oxygen Saturation 67.9 % (50-70); VBG PH 7.39 mmol/L (7.31-7.41); VBG PO2 35.6 mmol/L (28-40); VBG Total CO2 28.3 mmol/L (23-27)
[2022-11-08 18:42] LABS: Appearance,Urine CLEAR (Clear); Bilirubin,Urine Negative (Negative); Blood, Urine Negative (Negative); Color,Urine YELLOW (Yellow); Glucose,Urine (UA) Negative (Negative); Ketones,Urine Negative (Negative); Leukocyte Esterase,Urine TRACE (Negative); Nitrate,Urine POSITIVE (Negative); Protein,Urine 1+ (Negative); Specific Gravity, Urine 1.015 (1.005-1.030)
--- NOTE | 2022-11-08 18:47 | PC.NURSE ---
PT IS RESTING IN BED STATES SHE DOESN'T NEED ANYTHING BESIDE WATER OR SOMETHING, RELAYING MESSAGE TO LACEY
[2022-11-08 18:48] LABS: Lactic Acid 1.5 mmol/L (0.7-2.1)
[2022-11-08 18:57] LABS: Bacteria,Urine Trace /lpf; Squamous Epithelial Cell,Urine Occasional #/hpf (0-5)
[2022-11-08 19:04] LABS: Chloride 106 mmol/L (98-107); Potassium 4.1 mmoL/L (3.5-5.1); Sodium 142 mmol/L (136-145)
[2022-11-08 19:06] LABS: Blood Urea Nitrogen 17 mg/dl (7-17); Creatinine Clearance Estimated 50 mL/min (50-200); Estimated Glomerular Filt Rate 71 ml/min (>60); GFR (African American) 86 ML/MIN (>60)
[2022-11-08 19:07] LABS: Alanine Aminotransferase 31 U/L (12-78); Albumin/Globulin Ratio 1.1 (1.1-1.8); Alkaline Phosphatase 149 U/L (38-126); Anion Gap 13.1 mEq/L (5-15); Aspartate Amino Transferase 42 U/L (14-36); Bilirubin,Total 0.5 mg/dl (0.2-1.3); Calcium 9.4 mg/dl (8.4-10.2); Carbon Dioxide 27 mmol/L (22.0-30.0); Globulin 3.5 g/dL (1.3-3.2); Glucose 82 mg/dl (74-100); Total Protein,Serum 7.5 g/dl (6.3-8.2)
[2022-11-08 19:37] LABS: Troponin I < 0.01 ng/ml (0.00-0.034)
--- NOTE | 2022-11-08 19:40 | PC.NURSE ---
called and advised house of impending admit
--- NOTE | 2022-11-08 19:44 | PC.NURSE ---
Patient admitted to [address] Baeza with Dx of UTI and Sepsis.
--- NOTE | 2022-11-08 20:33 | PC.NURSE ---
PT ARRIVED TO FLOOR AT THIS TIME
--- NOTE | 2022-11-08 20:34 | PC.NURSE ---
AT 2009 RECEIVED PHONE REPORT FROM Felix FLORES RN/ED. PATIENT ARRIVED ON [facility] FLOOR AT 2031 VIA STRETCHER. DIAGNOSIS SEPSIS/UTI.
--- NOTE | 2022-11-08 21:11 | EXP.HP ---
History of Present Illness *Admission Date: 11/08/22 *Reason for visit:: Weakness, chills, shortness of air *History of present illness: Ms. uHrst is a 67-year-old female with a past medical history of COPD, home oxygen dependent at 3L, Anxiety Disorder, CAD, Hypertension, PAD. She presents to [facility] due to a 1-day history of chills, generalized weakness, dysuria, suprapubic pain and shortness of air. Information for the history and physical was obtained from the patient and daughter at bedside. Both report that the patient was diagnosed with a UTI 4 days prior to admission and treated outpatient with Nitrofuratoin and Pyridum. The patient has a history of E. coli UTI and labs were reviewed, the patient has a history of resistance to both Bactrim and PCN. They reported that the patient was taking her medications and symptoms started. In the ER, the patient underwent a Cxray that showed no acute findings, CBC and CMP were unremarkable. VBG showed no acute findings. Urinalysis was positive for nitrates, had 5-10 WBC and trace bacteria. In the ER the patient was noted to have a HR of 135, EKG showed Sinus Tachycardia, Temperature was 102.1, RR was 32. The patient was admitted with initial impression: Sepsis. In the ER, the patient received iv fluids at 30 ml/kg, was given Rocephin, both urine culture and blood cultures were obtained in the ER. [facility] Disclaimer: The information contained in this section may have been updated after the patient was seen, as this information can be updated by other users. Medical History (Updated 11/08/22 @ 21:19 by Jerry Bergeron DNP) Anxiety Hampton's palsy CAD (coronary artery disease) Chronic pain COPD exacerbation Depression H/O Hampton's palsy HLD (hyperlipidemia) HTN (hypertension) Hypertrophic obstructive cardiomyopathy Insomnia Lung nodule seen on imaging study PAD (peripheral artery disease) Presence of arterial stent PTSD (post-traumatic stress disorder) Pulmonary nodule Sinus tachycardia Vitamin D deficiency Surgical History (Updated 11/08/22 @ 21:16 by Jerry Bergeron DNP) S/P peripheral artery angioplasty with stent placement Family History Other Family history of hypertension Social History Smoking Status: Current every day smoker tobacco type: cigarettes packs per day: 1 pack-years: 52 second hand exposure: No alcohol intake: never substance use type: denies use current occupational status: retired Travel in the last 8 weeks: None household members: none housing: house Review of Systems Review of Systems Review of systems:: pertinent systems reviewed and negative unless documented below Constitutional Constitutional: Reports body ache(s), Reports chills, Reports fatigue, Reports lethargy and Reports malaise Eyes Eyes: Reports system reviewed and no additional complaints, except as documented ENT Ears, Nose, Mouth, and Throat: Reports system reviewed and no additional complaints, except as documented *Cardiovascular Cardiovascular: Reports system reviewed and no additional complaints, except as documented and Reports dyspnea *Respiratory Respiratory: Reports dyspnea *Gastrointestinal Gastrointestinal: Reports system reviewed and no additional complaints, except as documented *Genitourinary Genitourinary: Reports dysuria *Musculoskeletal Musculoskeletal: Reports myalgias Integumentary/Breasts Skin/Breast: Reports system reviewed and no additional complaints, except as documented *Neurologic Neurologic: Reports system reviewed and no additional complaints, except as documented Psychiatric Psychiatric: Reports system reviewed and no additional complaints, except as documented Endocrine Endocrine: Reports fatigue Hematologic/Lymphatic Hematologic/Lymphatic: Reports system reviewed and no additional complaints, except as docume
[2022-11-08 21:46] LABS: Troponin I 0.29 ng/ml (0.00-0.034)
--- NOTE | 2022-11-08 21:50 | PC.NURSE ---
2144 LAB CALLED WITH TROPONIN 0.29. CARMEL MILLER NOTIFIED.
[2022-11-09] VITALS (17 sets, daily range): BP systolic 95–195; BP diastolic 49–89; PULSE 73–142; RESP 17–28; TEMP 36.7–37.9; O2SAT 88–98; BMI 19.7
[2022-11-09 01:04] LABS: Troponin I 0.31 ng/ml (0.00-0.034)
--- NOTE | 2022-11-09 01:05 | PC.NURSE ---
lab called with critical troponin 0.31 which was called to tu blue. patient npo for cardiology consult since GA.
--- NOTE | 2022-11-09 01:20 | PC.NURSE ---
PATIENT HAS BEEN NPO SINCE [place] FOR CARDIOLOGY CONSULT. TROPONINS ELEVATED. PATIENT COMPLETED 2ND LITER LR HERE ON THE MED SURG FLOOR. 02 AT 3LNC.VITAL SIGNS STABLE/AFEBRILE. SINUS TACHYCARDIA ON TELE.
--- NOTE | 2022-11-09 02:30 | PC.NURSE ---
PATIENT'S HR CONSISTANTLY 135-140 SINUS TACHYCARDIA ON TELE. . RESPS 28. 02 SAT 93% ON 3LNC. SPOKE WITH CARMEL MILLER. TO ORDER METOPROLOL FOR HR.
--- NOTE | 2022-11-09 02:45 | PC.NURSE ---
PATIENT ASSISTED TO BSC TO VOID REQUIRING 2 ASSIST. VERY WEAK. UNABLE TO STAND. COARSE BREATH SOUNDS IN RIGHT LUNG, [facility] RESPIRAT[facility] CARE PROGRAM DIRECTOR NOTIFIED. TO GET CT OF CHEST.
--- NOTE | 2022-11-09 02:49 | CT_ITS ---
PROCEDURE INFORMATION: Exam: CTA Chest With Contrast Exam date and time: 11/09/2022 3:20 AM Age: 67 years old Clinical indication: Condition or disease; Lung condition and disease; Hypoxia; Additional info: Tachypnea, tachycardia, hypoxia TECHNIQUE: Imaging protocol: Computed tomographic angiography of the chest with contrast. Exam focused on the arteries. 3D rendering (Not supervised by radiologist): MIP and/or 3D reconstructed images were created by the technologist. Radiation optimization: All CT scans at this facility use at least one of these dose optimization techniques: automated exposure control; mA and/or kV adjustment per patient size (includes targeted exams where dose is matched to clinical indication); or iterative reconstruction. Contrast material: ISOVUE; Contrast volume: 70 ml; Contrast route: INTRAVENOUS (IV); REPORTING DATA: Count of CT and Cardiac NM exams in prior 12 months: This patient has received 3 known CTs and 0 known cardiac nuclear medicine studies in the 12 months prior to the current study. COMPARISON: CT ANGIO CHEST PE PROTOCOL 08/15/2022 7:14 PM FINDINGS: Pulmonary arteries: Normal. No pulmonary emboli. Aorta: Unremarkable. No aortic aneurysm. No aortic dissection. Lungs: Some thickening of the septa and interstitial changes are noted throughout. Upper lobe predominant centrilobular emphysema. Pleural spaces: Unremarkable. No pneumothorax. No pleural effusion. Heart: Unremarkable. No cardiomegaly. No pericardial effusion. Coronary arteries: Coronary atherosclerosis. Lymph nodes: Unremarkable. No enlarged lymph nodes. Bones/joints: Unremarkable. No acute fracture. Soft tissues: Unremarkable. IMPRESSION: 1. No evidence of pulmonary embolus. 2. Centrilobular emphysema and thickened int coronary atherosclerosis. erstitium. COMMENTS: In the absence of a history or active diagnosis of lung cancer, it is recommended that this patient with emphysema be evaluated for enrollment in a low dose CT lung cancer screening program.
--- NOTE | 2022-11-09 02:51 | ECG_ITS ---
APPROVED REPORT Exam: Resting ECG HR:123 bpm ECG Measurements Heart Rate 123 AXES MI 154 P 71 QRSd 88 QRS 87 QT 306 T 95 QTc 379 Conclusion SINUS TACHYCARDIA Biatrial abnormality MODERATE ST DEPRESSION [0.05+ mV ST DEPRESSION] ABNORMAL ECG UNCONFIRMED REPORT Electronically signed by : Edgard Dasilva MD 11/10/2022 09:28:18
--- NOTE | 2022-11-09 02:56 | EXP.SEPSISRE ---
[facility] Tissue Perfusion Eval Sepsis Re-Evaluation Performed: Yes Date Performed: 11/08/22 Time Performed: 23:00
--- NOTE | 2022-11-09 02:57 | EXP.EVENT.NO ---
Called to patient room by primary RN. Informed patient got up to use bathroom, tachypneic, tachycardic. Went to room, very dyspneic, reported very SOA after ambulation. CTA of the chest and EKG ordered.
--- NOTE | 2022-11-09 03:04 | PC.NURSE ---
MOIST COUGH NOTED. TEMP 99.9 ORAL. BP 195/89 HR 142. 02 SAT 88% ON 3LNC. #16 FR F/C INSERTED AND U/A COLLECTED AND SENT TO LAB. RADIOLOGY HERE AND PATIENT WILL BE TRANSPORTED VIA BED.
--- NOTE | 2022-11-09 03:31 | PC.NURSE ---
RESPIRATORY HERE TO OBTAIN 12 LEAD EKG ORDERED.
[2022-11-09 06:25] LABS: Chloride 104 mmol/L (98-107); Sodium 139 mmol/L (136-145)
[2022-11-09 06:26] LABS: Potassium 4.4 mmoL/L (3.5-5.1)
[2022-11-09 06:28] LABS: Alanine Aminotransferase 31 U/L (12-78); Albumin Level 3.4 g/dl (3.5-5.0); Albumin/Globulin Ratio 1.1 (1.1-1.8); Alkaline Phosphatase 117 U/L (38-126); Anion Gap 10.4 mEq/L (5-15); Aspartate Amino Transferase 37 U/L (14-36); Basophils % 0.2 % (0.1-2.0); Bilirubin,Total 0.5 mg/dl (0.2-1.3); Blood Urea Nitrogen 10 mg/dl (7-17); Calcium 8.5 mg/dl (8.4-10.2); Carbon Dioxide 29 mmol/L (22.0-30.0); Creatinine Clearance Estimated 46 mL/min (50-200); Eosinophils # 0.2 K/mm3 (0.0-0.4); Estimated Glomerular Filt Rate 83 ml/min (>60); GFR (African American) 101 ML/MIN (>60); Glucose 133 mg/dl (74-100); Lymphocytes # 0.3 K/mm3 (0.7-4.5); Mean Corpuscular Volume 90.6 fl (81-99); Monocytes # 0.4 K/mm3 (0.1-1.0); Red Cell Distribution Width 13.3 % (11.5-17.5); Total Protein,Serum 6.4 g/dl (6.3-8.2)
[2022-11-09 06:49] LABS: Hematocrit 39.3 % (37.0-47.0); Lymphocytes % 3.4 % (10-50); Mean Corpuscular HGB Conc 31.2 g/dL (31.8-35.4); Mean Corpuscular Hemoglobin 28.3 pg (27.0-31.2); Monocytes % 4.7 % (1.7-9.3); Neutrophils # 7.4 K/mm3 (1.8-7.8); Neutrophils % 89.8 % (37.0-80.0); Platelet Count 176 K/mm3 (142-424); Red Blood Count 4.34 M/mm3 (4.20-5.40); White Blood Count 8.2 K/mm3 (4.8-10.8)
[2022-11-09 06:53] LABS: Hemoglobin 12.3 g/dL (12.2-16.2); MANUAL DIFFERENTIAL MANUAL DIFFERENTIAL (MANUAL DIFF)
--- NOTE | 2022-11-09 07:24 | [facility].PHAINT1 ---
Pharmacy Intervention Comments: Home medication list verified through external fill history from outside pharmacy and note from recent office visit.
[2022-11-09 07:31] LABS: Troponin I 0.48 ng/ml (0.00-0.034)
--- NOTE | 2022-11-09 07:44 | PC.NURSE ---
Dr. Baeza notified of critical troponin 0.48.
[2022-11-09 08:07] LABS: Lymphocytes % 7 % (10-50); Monocytes % 2 % (2-9); Neutrophils % 91 % (42-76); Platelet Estimate Normal; RBC Morphology Normal; Total Cells Counted 100
--- NOTE | 2022-11-09 08:16 | EXP.ACUTE.PN ---
Subjective *Date: 11/09/22 *Time: 19:43 Interval history: Feels short of breath this morning. Stable on 3 L oxygen however. Troponins have continued to elevate without any chest pain. No nausea or vomiting. Daughter at bedside on morning rounds. Updated of plan. Medical Exam Vital signs and Labs for Last 24 Hours: Vital Signs Temp Pulse Pulse Resp BP BP Pulse Ox 11/09/22 07:36 99.6 F 103 H 20 129/64 95 11/09/22 04:00 100.2 F H 120 H 26 H 153/84 H 91 L 11/09/22 04:21 127 H 11/09/22 03:00 99.9 F H 142 H 28 H 195/89 H 88 L 11/08/22 23:55 97 11/09/22 00:00 98.7 F 120 H 22 121/57 L 98 11/09/22 00:08 118 H 11/08/22 21:55 126 H 11/08/22 21:23 95 11/08/22 20:00 98.5 F 125 H 24 130/63 95 11/08/22 20:22 98.9 F 124 H 28 H 162/67 H 11/08/22 19:30 129 H 164/66 H 95 11/08/22 19:00 133 H 186/74 H 94 L 11/08/22 18:31 135 H 28 H 160/80 H 94 L 11/08/22 18:06 131 H 32 H 196/86 H 93 L 11/08/22 17:33 102.1 F H 135 H 46 H 177/90 H 96 Intake and Output 11/08/22 11/09/22 11/09/22 23:59 07:59 15:59 Intake Total 1000 / 1000 Output Total 0 / 0 2 / 2 Balance 0 / 1000 998 / 998 Intake: Intake, Oral Amount 0 / 0 Intake, Total IV Amount 1000 / 1000 Lactated Ringers 1000ML 1,000 1000 / 1000 ml @ 999 mls/hr IV .Q1H1M [facility] Rx#:[id number] Output: Output, Urine Amount 0 / 0 2 / 2 Other: Number of Unmeasured Voids 1 0 Weight 54.25 kg 53.66 kg Patient Weight 11/09/22 23:59 Weight 53.66 kg Laboratory Results - last 24 hr 11/08/22 17:36: WBC 7.6, RBC 4.85, Hgb 14.0, Hct 43.7, MCV 90.1, MCH 28.9, MCHC 32.1, RDW 13.2, Plt Count 207, MPV 8.9, Neut % (Auto) 87.1 H, Lymph % (Auto) 6.8 L, [place] % (Auto) 3.5, Eos % (Auto) 2.5, Baso % (Auto) 0.1, Neut # (Auto) 6.6, Lymph # (Auto) 0.5 L, [place] # (Auto) 0.3, Eos # (Auto) 0.2, Baso # (Auto) 0.0, Total Counted 100, Neutrophils % (Manual) 81 H, Band Neutrophils % 1.0, Lymphocytes % (Manual) 11, Monocytes % (Manual) 3, Eosinophils % (Manual) 4 H, Platelet Estimate Normal, RBC Morphology Normal, Anisocytosis 1+ 11/08/22 17:36: Sodium 142, Potassium 4.1, Chloride 106, Carbon Dioxide 27, Anion Gap 13.1, BUN 17, Creatinine 0.80, Estimated Creat Clear 50, Estimated GFR 71, Est GFR ( Amer) 86, Glucose 82, Calcium 9.4, Total Bilirubin 0.5, AST 42 H D, ALT 31 D, Alkaline Phosphatase 149 H, Troponin I < 0.01, Total Protein 7.5, Albumin 4.0, Globulin 3.5 H, Albumin/Globulin Ratio 1.1 11/08/22 17:53: VBG pH 7.39, VBG pCO2 46.0, VBG pO2 35.6, VBG HCO3 26.9, VBG Total CO2 28.3 H, VBG O2 Saturation 67.9, VBG Base Excess 1.9 11/08/22 18:16: Urine Color Yellow, Urine Appearance Clear, Urine pH 6.0, Ur Specific [place] 1.015, Urine Protein 1+, Urine Glucose (UA) Negative, Urine Ketones Negative, Urine Blood Negative, Urine Nitrate Positive, Urine Bilirubin Negative, Urine Urobilinogen 1.0, Ur Leukocyte Esterase Trace, Urine RBC None, Urine WBC 5-10, Ur Squamous Epith Cells Occasional, Urine Bacteria Trace 11/08/22 18:16: Lactate 1.5 11/08/22 18:16: SARS-CoV-2 (PCR) Not detected, Influenza A Untype (PCR) Not detected, Influenza Type B (PCR) Not detected 11/08/22 20:55: Troponin I 0.29 H 11/09/22 00:15: Troponin I 0.31 H 11/09/22 05:52: WBC 8.2, RBC 4.34, Hgb 12.3 D, Hct 39.3, MCV 90.6, MCH 28.3, MCHC 31.2 L, RDW 13.3, Plt Count 176, MPV 9.0, Neut % (Auto) 89.8 H, Lymph % (Auto) 3.4 L, [place] % (Auto) 4.7, Eos % (Auto) 2.0, Baso % (Auto) 0.2, Neut # (Auto) 7.4, Lymph # (Auto) 0.3 L, [place] # (Auto) 0.4, Eos # (Auto) 0.2, Baso # (Auto) 0.0, Total Counted 100, Neutrophils % (Manual) 91 H, Lymphocytes % (Manual) 7 L, Monocytes % (Manual) 2, Platelet Estimate Normal, RBC Morphology Normal 11/09/22 05:52: Sodium 139, Potassium 4.4, Chloride 104, Carbon Dioxide 29, Anion Gap 10.4, BUN 10 D, Creatinine 0.70, Estimated Creat Clear 46, Estimated GFR 83, Est GFR ( Amer) 101, Glucos
--- NOTE | 2022-11-09 08:41 | EXP.CARD.CON ---
History of Present Illness History of Present Illness Consult date: 11/09/22 Requesting physician: Joshua Baeza Chief complaint: chills, weakness, dysuria, suprapubic pain, SOA Additional Medical History:: 1. Coronary artery disease A. [facility], 09/2016, mild CAD, hyperdynamic EF at 85% with apical cavity obliteration, LVEDP 20 mmHg, suprarenal/mesenteric/renal arteries normal B. Lexiscan Myoview, 09/2022, no ischemia with EF greater than 70%. (Read by [facility]) 2. Tobacco use, continued A. Centrilobular emphysema on CT scans 3. PAD A. BMS to right common and external iliac arteries, 09/2016 B. BMS, 10/2016, left common iliac artery 4. Carotid artery stenosis A. [facility], 2019, less than 20% JAE, 20 to 49% LICA 5. Hypertension with history of apical hypertrophic obstructive cardiomyopathy controlled with verapamil and beta-jeronimo therapy A. Echo 05/2019, normal LV size, mild concentric LVH, EF greater than 65%, grade 1 diastolic dysfunction. Mild MR and TR B. Echo, 03/2022, mild LAE, normal LV size, mild concentric LVH, EF 55% with no regional WMA. Grade 1 DD. Trace MR/TR C. Echo, 08/16/2022, mild biatrial enlargement, normal LV size, mild concentric LVH, EF 55% with no regional WMA. Grade 1 DD. Mild RV enlargement with normal contractility. Trace MR/TR. 6. Hyperlipidemia A. On statin therapy History of present illness: Ms. Hurst is a 67-year-old female with a past medical history of COPD, home oxygen dependent at 3L, Anxiety Disorder, CAD, Hypertension, PAD. She presents to [facility] due to a 1-day history of chills, generalized weakness, dysuria, suprapubic pain and shortness of air.? Information for the history and physical was obtained from the patient and daughter at bedside.? Both report that the patient was diagnosed with a UTI 4 days prior to admission and treated outpatient with Nitrofuratoin and Pyridum.? The patient has a history of E. coli UTI and labs were reviewed, the patient has a history of resistance to both Bactrim and PCN.? They reported that the patient was taking her medications and symptoms started. In the ER, the patient underwent a Cxray that showed no acute findings, CBC and CMP were unremarkable.? VBG showed no acute findings.? Urinalysis was positive for nitrates, had 5-10 WBC and trace bacteria.? In the ER the patient was noted to have a HR of 135, EKG showed Sinus Tachycardia, Temperature was 102.1, RR was 32.? The patient was admitted with initial impression:? Sepsis. In the ER, the patient received iv fluids at 30 ml/kg, was given Rocephin, both urine culture and blood cultures were obtained in the ER.? The above per Dr. Baeza Patient confirms events as noted above. Cardiology consulted for elevated troponin in the setting of sepsis. Patient recently had a stress test (09/20/2022) that was read as normal but with elevated troponins (Tmax 0.48 at this time) during sepsis would recommend left heart catheterization once patient has been afebrile for 24 hours. She does relate exertional shortness of breath that has recently gotten worse. She does continue to smoke. Chest CTA negative for pulmonary embolus. She does have centrilobular emphysema and is noted to have coronary atherosclerosis. EKG this admission shows sinus tachycardia at 123 bpm with possible RV conduction delay and moderate ST depression. These changes are present on tracing in August of this year. [facility] Disclaimer: The information contained in this section may have been updated after the patient was seen, as this information can be updated by other users. Medical History (Updated 11/08/22 @ 21:19 by Jerry Bergeron DNP) Anxiety Hampton's palsy CAD (coronary artery disease) Chronic pain COPD exacerbation Depression H/O Hampton's palsy HLD (hyperlipidemia) HTN (hypertension) Hypertrophic obstructive cardiomyopathy Insomnia Lung nodule seen on imaging study PAD (peripheral artery disease) Presence of arterial stent PTSD
--- NOTE | 2022-11-09 09:38 | EXP.PULM.CON ---
History of Present Illness History of present illness: Ms. Hurst is a 67-year-old female current smoker greater than [id number]-[id number] smoking declines and diagnoses presents related to long-term oxygen therapy recently admitted to hospital in August 2019 for COPD exacerbation presented to the hospital complaining worsening abdominal pain. Patient admits baseline respiratory status but denies any worsening cough or any productive phlegm on this admission. [facility] Disclaimer: The information contained in this section may have been updated after the patient was seen, as this information can be updated by other users. Medical History (Updated 11/09/22 @ 10:34 by Roxann Hopkins MD) Anxiety Hampton's palsy CAD (coronary artery disease) Chronic pain Chronic respiratory failure with hypoxia COPD exacerbation Depression H/O Hampton's palsy HLD (hyperlipidemia) HTN (hypertension) Hypertrophic obstructive cardiomyopathy Insomnia Lung nodule seen on imaging study PAD (peripheral artery disease) Presence of arterial stent PTSD (post-traumatic stress disorder) Pulmonary nodule Sinus tachycardia Vitamin D deficiency Surgical History (Updated 11/08/22 @ 21:16 by Jerry Bergeron DNP) S/P peripheral artery angioplasty with stent placement Family History Other Family history of hypertension Social History Smoking Status: Current every day smoker tobacco type: cigarettes packs per day: 1 pack-years: 52 second hand exposure: No alcohol intake: never substance use type: denies use current occupational status: retired Travel in the last 8 weeks: None household members: none housing: house Review of Systems Constitutional Constitutional: Reports body ache(s), Reports chills, Reports fatigue and Reports fever(s) Eyes Eyes: Denies eye discharge, Denies dry eyes, Denies irritation and Denies itchy eyes ENT Ears, Nose, Mouth, and Throat: Denies epistaxis, Denies facial pain, Denies lip swelling and Denies throat swelling *Cardiovascular Cardiovascular: Reports dyspnea and Reports dyspnea on exertion *Respiratory Respiratory: Denies change in phlegm color, Reports chest congestion, Reports cough, Reports dyspnea, Reports dyspnea on exertion, Denies excessive phlegm production, Denies hemoptysis and Reports wheezing *Gastrointestinal Gastrointestinal: Reports abdominal pain, Denies belching and Reports cramping *Musculoskeletal Musculoskeletal: Reports back pain, Reports myalgias and Reports other (No small joint swelling or Pain) *Neurologic Neurologic: Reports system reviewed and no additional complaints, except as documented Psychiatric Psychiatric: Denies homicidal ideation and Denies suicidal ideation Endocrine Endocrine: Reports fatigue and Denies heat intolerance Hematologic/Lymphatic Hematologic/Lymphatic: Denies easy bleeding and Denies lymphadenopathy Allergic/Immunologic Allergic/Immunologic: Denies itchy eyes, Denies lip swelling, Denies throat swelling and Reports wheezing Pulmonology Exam Inpatient Vital signs and Labs for Last 24 Hours: Temp Pulse Resp BP Pulse Ox 99.6 F 103 H 20 129/64 95 11/09/22 07:36 11/09/22 07:36 11/09/22 07:36 11/09/22 07:36 11/09/22 07:36 Laboratory Results - last 24 hr 11/08/22 17:36: WBC 7.6, RBC 4.85, Hgb 14.0, Hct 43.7, MCV 90.1, MCH 28.9, MCHC 32.1, RDW 13.2, Plt Count 207, MPV 8.9, Neut % (Auto) 87.1 H, Lymph % (Auto) 6.8 L, [place] % (Auto) 3.5, Eos % (Auto) 2.5, Baso % (Auto) 0.1, Neut # (Auto) 6.6, Lymph # (Auto) 0.5 L, [place] # (Auto) 0.3, Eos # (Auto) 0.2, Baso # (Auto) 0.0, Total Counted 100, Neutrophils % (Manual) 81 H, Band Neutrophils % 1.0, Lymphocytes % (Manual) 11, Monocytes % (Manual) 3, Eosinophils % (Manual) 4 H, Platelet Estimate Normal, RBC Morphology Normal, Anisocytosis 1+ 11/08/22 17:36: Sodium 142, Potassium 4.1, Chloride 106, Carbon Dioxide 27, Anion
--- NOTE | 2022-11-09 16:00 | PC.NURSE ---
Patient had stated she just wanted to lay and rest despite multiple attempts to have her get up to the chair or bedside. Patient stated she did not want a bath because she had received a bath on nightshift prior. Patient weaned from 4LNC to 3LNC. VS stable. Lung sounds exhibit expiratory wheezes on ascultation. No other changes noted.
[2022-11-10] VITALS (32 sets, daily range): BP systolic 98–154; BP diastolic 44–85; PULSE 80–120; RESP 16–22; TEMP 36.5–37; O2SAT 89–98; BMI 19.8
--- NOTE | 2022-11-10 03:16 | PC.NURSE ---
RESTING IN BED WITH HOB ELEVATED X 40 DEGREES. 02 IN USE AT 3LNC. NO COMPLAINTS OF PAIN VOICED. REPORTS SOA WITH EXERTION EARLY IN THE SHIFT.
[2022-11-10 06:47] LABS: Basophils % 0.3 % (0.1-2.0); Eosinophils # 0.6 K/mm3 (0.0-0.4); Eosinophils % 8.7 % (0.1-12.0); Hematocrit 37.5 % (37.0-47.0); Hemoglobin 11.7 g/dL (12.2-16.2); Lymphocytes # 0.8 K/mm3 (0.7-4.5); Lymphocytes % 12.7 % (10-50); Mean Corpuscular HGB Conc 31.1 g/dL (31.8-35.4); Mean Corpuscular Hemoglobin 28.6 pg (27.0-31.2); Mean Corpuscular Volume 91.7 fl (81-99); Mean Platelet Volume 8.5 fl (7.4-10.4); Monocytes # 0.4 K/mm3 (0.1-1.0); Monocytes % 6.4 % (1.7-9.3); Neutrophils # 4.5 K/mm3 (1.8-7.8); Platelet Count 176 K/mm3 (142-424); Red Blood Count 4.09 M/mm3 (4.20-5.40); Red Cell Distribution Width 13.1 % (11.5-17.5); White Blood Count 6.3 K/mm3 (4.8-10.8)
[2022-11-10 06:51] LABS: Chloride 101 mmol/L (98-107); Potassium 3.5 mmoL/L (3.5-5.1); Sodium 139 mmol/L (136-145)
[2022-11-10 06:53] LABS: Blood Urea Nitrogen 15 mg/dl (7-17); Creatinine Clearance Estimated 46 mL/min (50-200); Estimated Glomerular Filt Rate 71 ml/min (>60); GFR (African American) 86 ML/MIN (>60)
[2022-11-10 06:54] LABS: Anion Gap 8.5 mEq/L (5-15); Calcium 8.4 mg/dl (8.4-10.2); Carbon Dioxide 33 mmol/L (22.0-30.0); Glucose 102 mg/dl (74-100); Magnesium 2.1 mg/dl (1.6-2.3)
--- NOTE | 2022-11-10 09:14 | IR_ITS ---
APPROVED REPORT Patient Location: Inpatient PROCEDURES Left heart catheterization Left ventriculogram Selective coronary angiogram Drug-eluting stent deployment to the ostial proximal mid and distal dominant right coronary INDICATION Acute non-ST elevation myocardial infarction, Coronary artery disease Informed consent was obtained prior to the procedure. COMPLICATIONS None Estimated Blood Loss: Less than 10 ml TECHNIQUE One percent lidocaine used to anesthetize the right anterior aspect of the wrist. The right radial artery was accessed via the Seldinger technique. A 6 Latvian sheath was placed in the right radial artery. 150 mg magnesium sulfate, 800 mcg of nitroglycerin, 1mg Lidocaine and 5000 U Heparin were given through the arterial sheath. The papa catheter was also used to perform left heart catheterization, left ventriculogram and selective coronary angiogram. At the end the diagnostic angiogram therapeutic heparin was administered giving a therapeutic ACT and the guide catheter was placed in the right coronary artery. There was severe dampening each time the right coronary was engaged. The right coronary was quickly engaged a Choice PT extra-support wire was placed distally and the guide catheter was pulled out of the right coronary artery. A 3 mm x 38 mm Jamaal frontier stent was placed in the ostial proximal segment and deployed at 20 tara reducing the stenosis. An additional 3.5 x 38 mm Jamaal frontier stent was placed distal to the for stent yet still overlapping and deployed at 20 tara. The balloon was brought back and deployed at 20 tara in the 3 mm stent post dilating. Repeat angiography demonstrated a small dissection distal to the 3.5 mm stent therefore a 3 mm x 12 mm [place] frontier stent was placed distal to this and deployed at 24 tara. The balloon was brought back and deployed at 28 tara to mesh the 2 stents. A 4 mm x 12 mm noncompliant balloon was then deployed at 20 and 24 tara throughout the ostial proximal portion in order to post dilate the under dilated areas. EMILY-3 flow was present before and after the procedure. 2 small branches were no longer present at the end of the intervention which likely supply the right ventricle. The apparatus was removed the patient was transferred to the postop holding in stable condition for sheath removal ANGIOGRAPHIC RESULTS The left main artery Normal The left anterior descending artery Has proximal 20 and 30% calcified stenoses with a mid vessel 60 to 70% stenosis followed by an additional 50% stenosis The circumflex artery Small nondominant normal The right coronary artery Large dominant with an ostial stenosis of at least 50% long tubular proximal and mid vessel 70% stenosis The FREEMAN ventriculogram reveals Not performed The left ventricular end-diastolic pressure Not measured IMPRESSION Severe dominant right coronary artery disease as described above Successful stenting the ostial proximal mid distal dominant right coronary severe disease reduced to 0% with 3 contiguous drug-eluting stents all postdilated with a large high pressure balloons Persistent moderate to severe disease in the mid LAD as described above Normal ejection fraction Normal left ventricular end-diastolic pressure PLAN 1. Dual antiplatelet therapy 2. Supportive care 3. LDL less than 55 to be achieved with high intensity statin 4. Avoidance of tobacco products 5. Patient is experiencing post chest pain which likely stems from severe stretching of the ostial proximal and mid dominant right coronary artery. EKG looks okay however there were 2 small less than 0.5 mm branches which were jailed by the stents and are no longer open. This likely is the etiology f
--- NOTE | 2022-11-10 09:36 | PC.NURSE ---
COURTESY TECH NOTE; ROUNDED ON PT 0800, PT DENIED NEED FOR DRINK, NEED TO REPOSITION. ASSISTED PT TO CHANGE BRIEF, SHAVED FOR HEART CATH. CALL LIGHT WITHIN REACH, NO FURTHER REQUESTS AT THIS TIME WIL STACY
--- NOTE | 2022-11-10 09:36 | EXP.PULM.PN ---
Subjective *Date: 11/10/22 *Time: 10:53 Interval history: No acute respiratory vents overnight. Patient complains of respiratory distress even this morning improved with breathing treatments. Admits improved abdominal pain Pulmonology Exam Inpatient Vital signs and Labs for Last 24 Hours: Temp Pulse Resp BP Pulse Ox 98.5 F 102 H 20 123/59 L 94 L 11/10/22 08:00 11/10/22 08:00 11/10/22 08:00 11/10/22 08:00 11/10/22 08:00 Laboratory Results - last 24 hr 11/10/22 05:30: WBC 6.3, RBC 4.09 L, Hgb 11.7 L, Hct 37.5, MCV 91.7, MCH 28.6, MCHC 31.1 L, RDW 13.1, Plt Count 176, MPV 8.5, Neut % (Auto) 72.0, Lymph % (Auto) 12.7, [place] % (Auto) 6.4, Eos % (Auto) 8.7, Baso % (Auto) 0.3, Neut # (Auto) 4.5, Lymph # (Auto) 0.8, [place] # (Auto) 0.4, Eos # (Auto) 0.6 H, Baso # (Auto) 0.0 11/10/22 05:30: Sodium 139, Potassium 3.5 D, Chloride 101, Carbon Dioxide 33 H, Anion Gap 8.5, BUN 15 D, Creatinine 0.80, Estimated Creat Clear 46, Estimated GFR 71, Est GFR ( Amer) 86, Glucose 102 H D, Calcium 8.4, Magnesium 2.1 I & O for Labs for Last 24 Hours: Intake & Output 11/07/22 11/08/22 11/09/22 11/10/22 23:59 23:59 23:59 23:59 Intake Total 1240 / 1530 410 / 410 Output Total 0 / 0 478 / 478 Balance 0 / 1000 762 / 1052 410 / 410 Weight 119 lb 9.6 oz 118 lb 4.8 oz 119 lb 4 oz Microbiology Reports for the Last 24 Hours: Microbiology 11/08/22 18:25 Urine,Clean Catch Urine Culture - Preliminary NO GROWTH AFTER 24 HOURS Constitutional: Present moderate distress Head: Present normocephalic and atraumatic ENT: Present normal exam, normal oropharynx and mucous membranes moist Neck: Present normal inspection and full ROM Respiratory: Present prolonged expiratory phase, respiratory distress, wheezes and able to speak in complete sentences; Absent crackles Cardiac: Present S1/S2, Tachycardia and radial pulses present GI: Present soft, distention and tenderness; Absent guarding Rectal (female): Present deferred (female): Present deferred Skin: Present intact; Absent cyanosis or jaundice Neuro: Present alert, awake and oriented x 3 Extremities: Present normal inspection; Absent clubbing or cyanosis Psychiatric: Present normal affect and cooperative Assessment and Plan *Assessment and plan (1) Chronic respiratory failure with hypoxia: Status: Acute Category: Medical Code(s): J96.11 - Chronic respiratory failure with hypoxia (2) COPD (chronic obstructive pulmonary disease): Status: Acute Category: Medical Code(s): J44.9 - Chronic obstructive pulmonary disease, unspecified Plan 67-year-old history of COPD. Long-term oxygen therapy at home, CAD, hypertension, peripheral vascular disease. Most recent COPD exacerbation August 2022. Patient is being managed for UTI as an outpatient basis, presented to the ER with dysuria chills suprapubic pain and shortness of breath. Patient was initiated on sepsis protocol received fluid bolus and was initiated on ceftriaxone pending urine and blood cultures. CTA from admission reviewed, no evidence of acute pulmonary embolism. No airspace disease/consolidation. Bilateral centrilobular emphysematous changes diffuse. VBG upon his admission evidence of hypoxic/hypercarbic respiratory failure. No evidence of leukocytosis. Tmax 102.1 upon admission. Hemodynamically stable. COVID-19 and flu PCR negative On cinitial consult exam Auscultation mild expiratory wheeze. Patient admits baseline respiratory status. Predominant complaint including abdominal pain. Interval update: No acute respiratory vents overnight. Patient continues remain on oxygen supplement to auscultation bilateral mild expiratory wheeze. Continue to receive breathing treatments. Admits improving abdominal pain. Plan: -Continue DuoNebs every 6 hours scheduled and budesonide every 12 scheduled, will wean to Trelegy 100 upon discharge -Continue long-term oxygen up to main
--- NOTE | 2022-11-10 09:48 | P.PN_ITS ---
Subjective Subjective Date: 11/10/22 Time: 09:48 Principal diagnosis: UTI, sepsis, non-STEMI Interval history: 67-year-old white female in bed in no acute distress. Denies any chest pain, pressure or tightness at this time. Abdominal discomfort has improved since starting antibiotics for UTI. Discussed the recommendation for left heart catheterization today based on elevated troponins this admission, past coronary artery disease and recent erroneous readings of stress test due to technical issues. Answered all questions. Risk, benefits and procedure explained to the patient she agrees to proceed. Exam Data for Last 24 hours Vital signs and Labs for Last 24 Hours: Temp Pulse Resp BP Pulse Ox 98.5 F 102 H 20 123/59 L 94 L 11/10/22 08:00 11/10/22 08:00 11/10/22 08:00 11/10/22 08:00 11/10/22 08:00 Laboratory Results - last 24 hr 11/10/22 05:30: WBC 6.3, RBC 4.09 L, Hgb 11.7 L, Hct 37.5, MCV 91.7, MCH 28.6, MCHC 31.1 L, RDW 13.1, Plt Count 176, MPV 8.5, Neut % (Auto) 72.0, Lymph % (Auto ) 12.7, [place] % (Auto) 6.4, Eos % (Auto) 8.7, Baso % (Auto) 0.3, Neut # (Auto) 4.5, Lymph # (Auto) 0.8, [place] # (Auto) 0.4, Eos # (Auto) 0.6 H, Baso # (Auto) 0.0 11/10/22 05:30: Sodium 139, Potassium 3.5 D, Chloride 101, Carbon Dioxide 33 H, Anion Gap 8.5, BUN 15 D, Creatinine 0.80, Estimated Creat Clear 46, Estimated GFR 71, Est GFR ( Amer) 86, Glucose 102 H D, Calcium 8.4, Magnesium 2.1 I & O for Last 24 hours: Intake & Output 11/07/22 11/08/22 11/09/22 11/10/22 11:59 11:59 11:59 11:59 Intake Total 1000 / 1000 650 / 650 Output Total 377 / 377 101 / 101 Balance 623 / 623 549 / 549 Weight 118 lb 4.8 oz 119 lb 4 oz Microbiology Reports for the Last 24 Hours: Microbiology 11/08/22 18:25 Urine,Clean Catch Urine Culture - Preliminary NO GROWTH AFTER 24 HOURS Constitutional Constitutional: no acute distress *Routine Respiratory Exam Respiratory: Present decreased breath sounds and diminished air movement *Routine Cardiovascular Exam Cardiovascular: Present RRR *Routine Extremities Exam Extremities: Absent cyanosis, clubbing or edema *Routine Neurological Exam Neurological: Present alert, oriented X3 and CN II-XII intact Progress Note: A&P Assessment and plan (1) Chronic respiratory failure with hypoxia: Status: Acute (2) COPD (chronic obstructive pulmonary disease): Status: Acute (3) HTN (hypertension): Status: Chronic (4) HLD (hyperlipidemia): Status: Chronic (5) CAD (coronary artery disease): Status: Chronic (6) Non-STEMI (non-ST elevated myocardial infarction): Status: Acute Assessment and Plan Assessment and Plan for All Diagnoses:: 1.? UTI and sepsis Treatment per Dr. Baeza 2.? Elevated troponin in patient with known coronary artery disease, consistent with non-STEMI. Continue aspirin and Plavix Plan to proceed with left heart catheterization Echo this admission shows EF 60-65%. 3.? 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 COPD with continued tobacco use Nicotine replacement therapy while here Further recommendations to follow pending above results
[2022-11-10 13:35] LABS: CATHL Activated Clotting Time 339 SEC (74-125)
--- NOTE | 2022-11-10 13:45 | SUR.PHASEII ---
Notified Dr anaya of patient complaining of chest pain, stated to give 2 of morphine and get a ekg
--- NOTE | 2022-11-10 13:45 | ECG_ITS ---
APPROVED REPORT Exam: Resting ECG HR:98 bpm ECG Measurements Heart Rate 98 AXES WA 128 P 81 QRSd 86 QRS 74 QT 370 T 74 QTc 425 Conclusion SINUS RHYTHM POSSIBLE RIGHT VENTRICULAR CONDUCTION DELAY [RSR (QR) IN V1/V2] BORDERLINE ECG UNCONFIRMED REPORT Electronically signed by : Edgard Dasilva MD 11/11/2022 08:30:44
--- NOTE | 2022-11-10 13:52 | EXP.ACUTE.PN ---
Subjective *Date: 11/10/22 *Time: 19:52 Interval history: Mild respiratory distress this morning but improved from yesterday. Tolerating p.o. intake. No nausea or vomiting. No chest pain. Feeling somewhat better. Afebrile Medical Exam Vital signs and Labs for Last 24 Hours: Vital Signs Temp Pulse Pulse Resp BP Pulse Ox 11/10/22 13:45 97 H 19 123/60 92 L 11/10/22 13:40 100 H 18 136/79 93 L 11/10/22 13:35 99 H 18 142/78 H 95 11/10/22 13:30 99 H 19 151/85 H 97 11/10/22 13:30 99 H 11/10/22 11:58 98.4 F 102 H 18 128/57 L 93 L 11/10/22 11:40 80 11/10/22 11:40 80 11/10/22 08:00 120 H 11/10/22 08:00 98.5 F 102 H 20 123/59 L 94 L 11/10/22 08:00 97 11/10/22 06:35 117 H 11/10/22 06:35 117 H 11/10/22 06:35 91 L 11/10/22 04:00 97.7 F 103 H 20 139/63 95 11/10/22 04:00 106 H 11/10/22 00:00 98.6 F 96 H 16 100/44 L 93 L 11/10/22 00:00 99 H 11/09/22 23:08 94 H 11/09/22 23:08 94 H 11/09/22 20:00 95 11/09/22 20:00 113 H 11/09/22 20:00 98.0 F 114 H 18 121/52 L 95 11/09/22 18:01 103 H 11/09/22 18:01 104 H 11/09/22 18:01 90 L 11/09/22 16:00 90 11/09/22 15:19 98.5 F 73 20 95/49 L 96 Intake and Output 11/09/22 11/10/22 11/10/22 23:59 07:59 15:59 Intake Total 240 / 1530 290 / 410 120 / 410 Output Total 101 / 478 300 / 300 Balance 139 / 1052 290 / 110 -180 / 110 Intake: Intake, Oral Amount 240 / 480 240 / 360 120 / 360 Intake, Total IV Amount 50 / 50 Ceftriaxone Sodium 1 gm In 0.9 50 / 50 % Sodium Chloride 50 ml @ 100 mls/hr IV Q24H [facility] Rx#:[id number] Output: Output, Urine Amount 101 / 103 300 / 300 Other: Number of Unmeasured Voids 1 0 Weight 54.091 kg Patient Weight 11/10/22 23:59 Weight 54.091 kg Laboratory Results - last 24 hr 11/10/22 05:30: WBC 6.3, RBC 4.09 L, Hgb 11.7 L, Hct 37.5, MCV 91.7, MCH 28.6, MCHC 31.1 L, RDW 13.1, Plt Count 176, MPV 8.5, Neut % (Auto) 72.0, Lymph % (Auto) 12.7, [place] % (Auto) 6.4, Eos % (Auto) 8.7, Baso % (Auto) 0.3, Neut # (Auto) 4.5, Lymph # (Auto) 0.8, [place] # (Auto) 0.4, Eos # (Auto) 0.6 H, Baso # (Auto) 0.0 11/10/22 05:30: Sodium 139, Potassium 3.5 D, Chloride 101, Carbon Dioxide 33 H, Anion Gap 8.5, BUN 15 D, Creatinine 0.80, Estimated Creat Clear 46, Estimated GFR 71, Est GFR ( Amer) 86, Glucose 102 H D, Calcium 8.4, Magnesium 2.1 11/10/22 13:07: Activated Clotting Time 339 H* I & O for Labs for Last 24 Hours: Intake & Output 11/07/22 11/08/22 11/09/22 11/10/22 23:59 23:59 23:59 23:59 Intake Total 1240 / 1530 410 / 410 Output Total 0 / 0 478 / 478 300 / 300 Balance 0 / 1000 762 / 1052 110 / 110 Weight 54.25 kg 53.66 kg 54.091 kg Microbiology Reports for the Last 24 Hours: Microbiology 11/08/22 18:25 Urine,Clean Catch Urine Culture - Preliminary NO GROWTH AFTER 24 HOURS Constitutional: Present no acute distress, thin, chronically ill appearing and cooperative Head: Present atraumatic and normocephalic ENT: Present normal exam Neck: Present normal inspection Respiratory: Present accessory muscle use, prolonged expiratory phase, wheezes and diminished air movement (But improved); Absent rhonchi or crackles Cardiac: Present Reg Rate and Rhythm GI: Present soft and normal bowel sounds; Absent distention or tenderness Extremities: Present normal inspection and full ROM Skin: Present intact; Absent erythema Neuro: Present Grossly Intact, alert, awake, oriented x 3 and moves all extremities Assessment and Plan *Assessment and plan (1) UTI (urinary tract infection): Status: Acute Category: Medical Code(s): N39.0 - Urinary tract infection, site not specified (2) COPD (chronic obstructive pulmonary disease): Status: Acute Category: Medical Code(s): J44.9 - Chron
--- NOTE | 2022-11-10 14:07 | PC.NURSE ---
report given to Nancy KING.
--- NOTE | 2022-11-10 15:04 | PC.NURSE ---
nitro drip titrated to 10mcg per protocol due to chest pain
--- NOTE | 2022-11-10 19:03 | PC.NURSE ---
nitro drip stopped. Patient has not had chest pain for 3-4 hours and blood pressure is controlled.
[2022-11-11] VITALS (13 sets, daily range): BP systolic 106–142; BP diastolic 52–93; PULSE 73–126; RESP 18–20; TEMP 36.3–36.6; O2SAT 89–100; BMI 19.8
[2022-11-11 06:30] LABS: Basophils % 0.3 % (0.1-2.0); Eosinophils # 0.6 K/mm3 (0.0-0.4); Eosinophils % 10.1 % (0.1-12.0); Hematocrit 35.3 % (37.0-47.0); Lymphocytes # 1.2 K/mm3 (0.7-4.5); Lymphocytes % 21.1 % (10-50); Mean Corpuscular HGB Conc 31.1 g/dL (31.8-35.4); Mean Corpuscular Hemoglobin 28.5 pg (27.0-31.2); Mean Corpuscular Volume 91.8 fl (81-99); Mean Platelet Volume 8.6 fl (7.4-10.4); Monocytes # 0.5 K/mm3 (0.1-1.0); Monocytes % 8.4 % (1.7-9.3); Neutrophils # 3.4 K/mm3 (1.8-7.8); Platelet Count 175 K/mm3 (142-424); Red Blood Count 3.85 M/mm3 (4.20-5.40); White Blood Count 5.7 K/mm3 (4.8-10.8)
--- NOTE | 2022-11-11 06:49 | ECG_ITS ---
APPROVED REPORT Exam: Resting ECG HR:125 bpm ECG Measurements Heart Rate 125 AXES QRSd 98 QRS 71 QT 308 T 32 QTc 382 Conclusion ATRIAL FIBRILLATION WITH RAPID VENTRICULAR RESPONSE INCOMPLETE RIGHT BUNDLE BRANCH BLOCK [90+ ms QRS DURATION, TERMINAL R IN V1/V2, 40+ ms S IN I/aVL/V4/V5/V6] ABNORMAL RHYTHM ECG UNCONFIRMED REPORT Electronically signed by : Edgard Dasilva MD 11/12/2022 10:41:42
--- NOTE | 2022-11-11 06:55 | PC.NURSE ---
notified VETO Edwards of pt's rhythm change from sinus tach to afib, ekg ordered, ekg read afib with rvr, notified MD anaya, instructed to give 10mg IVP of diltiazem and then start diltiazem drip at 10mg/hr
[2022-11-11 06:57] LABS: Chloride 103 mmol/L (98-107); Potassium 3.9 mmoL/L (3.5-5.1); Sodium 141 mmol/L (136-145)
[2022-11-11 06:59] LABS: Blood Urea Nitrogen 13 mg/dl (7-17); Creatinine Clearance Estimated 46 mL/min (50-200); Estimated Glomerular Filt Rate 83 ml/min (>60); GFR (African American) 101 ML/MIN (>60)
[2022-11-11 07:00] LABS: Anion Gap 7.9 mEq/L (5-15); Calcium 8.3 mg/dl (8.4-10.2); Carbon Dioxide 34 mmol/L (22.0-30.0); Glucose 94 mg/dl (74-100)
--- NOTE | 2022-11-11 07:09 | PC.NURSE ---
pt's oxygen saturation staying 87-89% on 2LNC, increased pt's oxygen to 3LNC and oxygen saturation 90%
--- NOTE | 2022-11-11 08:15 | ECG_ITS ---
APPROVED REPORT Exam: Resting ECG HR:86 bpm ECG Measurements Heart Rate 86 AXES ND 141 P 78 QRSd 86 QRS 72 QT 379 T 41 QTc 422 Conclusion SINUS RHYTHM WITH OCCASIONAL SUPRAVENTRICULAR PREMATURE COMPLEXES POSSIBLE RIGHT VENTRICULAR CONDUCTION DELAY [RSR (QR) IN V1/V2] BORDERLINE ECG UNCONFIRMED REPORT Electronically signed by : Edgard Dasilva MD 11/12/2022 10:41:34
--- NOTE | 2022-11-11 08:38 | EXP.CARD.PN ---
Subjective Subjective Date: 11/11/22 Time: 08:38 Principal diagnosis: UTI, sepsis, non-STEMI, PAF Interval history: 67-year-old white female in bed in no acute distress. Patient was upset about having to stay last night but denies any further chest pain. She did have paroxysmal atrial fibrillation that converted back to sinus rhythm this morning after IV diltiazem. Patient is anxious to go home. Exam Data for Last 24 hours Vital signs and Labs for Last 24 Hours: Temp Pulse Resp BP Pulse Ox 97.6 F 84 20 117/52 L 91 L 11/11/22 08:00 11/11/22 08:00 11/11/22 08:00 11/11/22 08:00 11/11/22 08:00 Laboratory Results - last 24 hr 11/10/22 13:07: Activated Clotting Time 339 H* 11/11/22 05:26: WBC 5.7, RBC 3.85 L, Hgb 11.0 L, Hct 35.3 L, MCV 91.8, MCH 28.5, MCHC 31.1 L, RDW 13.0, Plt Count 175, MPV 8.6, Neut % (Auto) 60.0, Lymph % (Auto) 21.1, [place] % (Auto) 8.4, Eos % (Auto) 10.1, Baso % (Auto) 0.3, Neut # (Auto) 3.4, Lymph # (Auto) 1.2, [place] # (Auto) 0.5, Eos # (Auto) 0.6 H, Baso # (Auto) 0.0 11/11/22 05:26: Sodium 141, Potassium 3.9, Chloride 103, Carbon Dioxide 34 H, Anion Gap 7.9, BUN 13, Creatinine 0.70, Estimated Creat Clear 46, Estimated GFR 83, Est GFR ( Amer) 101, Glucose 94, Calcium 8.3 L I & O for Last 24 hours: Intake & Output 11/08/22 11/09/22 11/10/22 11/11/22 11:59 11:59 11:59 11:59 Intake Total 1000 / 1000 650 / 650 650 / 650 Output Total 377 / 377 401 / 401 125 / 125 Balance 623 / 623 249 / 249 525 / 525 Weight 118 lb 4.8 oz 119 lb 4 oz 119 lb 6.4 oz Microbiology Reports for the Last 24 Hours: Microbiology 11/08/22 18:25 Urine,Clean Catch Urine Culture - Final NO GROWTH AFTER 48 HOURS 11/08/22 18:40 Blood Blood Culture - Preliminary NO GROWTH AFTER 48 HOURS 11/08/22 18:16 Blood Blood Culture - Preliminary NO GROWTH AFTER 48 HOURS Constitutional Constitutional: no acute distress *Routine Respiratory Exam Respiratory: Present wheezes and diminished air movement *Routine Cardiovascular Exam Cardiovascular: Present RRR *Routine Extremities Exam Extremities: Absent edema Progress Note: A&P Assessment and plan (1) UTI (urinary tract infection): Status: Acute (2) COPD (chronic obstructive pulmonary disease): Status: Acute (3) Hypertension: Status: Acute (4) PAD (peripheral artery disease): Status: Acute (5) CAD (coronary artery disease): Status: Acute (6) Chronic respiratory failure with hypoxia: Status: Acute (7) HTN (hypertension): Status: Chronic (8) HLD (hyperlipidemia): Status: Chronic (9) CAD (coronary artery disease): Status: Chronic (10) Non-STEMI (non-ST elevated myocardial infarction): Status: Acute (11) Paroxysmal atrial fibrillation with rapid ventricular response: Status: Acute Assessment and Plan Assessment and Plan for All Diagnoses:: 1.? UTI and sepsis Treatment per Dr. Baeza 2.? Non-STEMI. Continue aspirin and Plavix 3 ANA to RCA, 11/10/2022, persistent moderate to severe disease in mid LAD (relatively small caliber) relegated to medical therapy at this time Echo this admission shows EF 60-65%. 3.? 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 COPD with continued tobacco use Nicotine replacement therapy while here 5. Paroxysmal atrial fibrillation Converted to sinus rhythm with IV diltiazem. We will switch to oral diltiazem today. CHADS-VASC score of 4 (sex, age, vascular disease, hypertension) Start Eliquis 5 mg twice daily Stable from cardiac standpoint for discharge home when Dr. Baeza believes she is ready Home medication recommendations Aspirin 81 mg daily Plavix 75 mg daily Eliquis 5 mg twice daily Diltiazem 120 mg extended release daily Lisinopril 2.5 mg daily Metoprolol succinate 50 mg daily Follow
--- NOTE | 2022-11-11 09:03 | EXP.PHA.PN ---
Subjective *Date: 11/11/22 *Time: 09:03 Medical Exam Vital signs and Labs for Last 24 Hours: Vital Signs Temp Pulse Pulse Pulse Resp BP Pulse Ox 11/11/22 08:00 97.6 F 11/11/22 07:00 126 H 20 112/70 90 L 11/11/22 07:30 126 H 91 L 11/11/22 08:00 84 20 117/52 L 91 L 11/11/22 06:38 120 H 11/11/22 06:38 114 H 11/11/22 06:38 93 L 11/11/22 04:00 89 11/11/22 00:00 90 11/10/22 20:00 95 H 11/11/22 06:00 122 H 18 119/64 90 L 11/11/22 04:00 90 20 142/86 H 94 L 11/11/22 02:00 84 18 106/54 L 89 L 11/11/22 00:00 91 H 20 139/67 98 11/11/22 02:00 89 L 11/10/22 20:00 98 11/10/22 22:00 91 H 22 154/77 H 93 L 11/10/22 22:00 98.0 F 11/10/22 20:45 93 H 19 115/67 96 11/10/22 19:45 99 H 20 98/50 L 95 11/10/22 20:00 98.0 F 11/10/22 18:30 96 H 22 115/73 97 11/10/22 18:00 97.7 F 11/10/22 18:02 84 11/10/22 18:02 82 11/10/22 18:02 97 11/10/22 17:30 18 102/61 L 95 11/10/22 17:00 84 18 109/65 L 96 11/10/22 16:45 20 129/61 97 11/10/22 16:30 86 20 116/63 95 11/10/22 16:15 86 20 116/62 97 11/10/22 15:45 95 H 19 105/53 L 95 11/10/22 15:15 118 H 20 118/59 L 92 L 11/10/22 17:45 93 H 18 113/52 L 90 L 11/10/22 14:45 90 21 100/58 L 89 L 11/10/22 14:30 92 H 21 114/67 91 L 11/10/22 16:00 93 H 11/10/22 12:00 110 H 11/10/22 14:15 92 H 18 114/67 91 L 11/10/22 14:28 91 H 17 114/67 92 L 11/10/22 14:00 95 H 18 113/60 93 L 11/10/22 13:45 97 H 19 123/60 92 L 11/10/22 13:40 100 H 18 136/79 93 L 11/10/22 13:35 99 H 18 142/78 H 95 11/10/22 13:30 99 H 19 151/85 H 97 11/10/22 13:30 99 H 11/10/22 11:58 98.4 F 102 H 18 128/57 L 93 L 11/10/22 11:40 80 11/10/22 11:40 80 Intake and Output 11/10/22 11/11/22 11/11/22 23:59 07:59 15:59 Intake Total 240 / 1060 410 / 410 Output Total 125 / 425 0 / 0 Balance 115 / 635 410 / 410 Intake: Intake, Oral Amount 240 / 960 360 / 360 Intake, Total IV Amount 50 / 50 Ceftriaxone Sodium 1 gm In 0.9 50 / 50 % Sodium Chloride 50 ml @ 100 mls/hr IV Q24H [facility] Rx#:[id number] Output: Output, Urine Amount 125 / 425 0 / 0 Other: Number of Unmeasured Voids 1 1 Weight 54.159 kg Patient Weight 11/11/22 23:59 Weight 54.159 kg Laboratory Results - last 24 hr 11/10/22 13:07: Activated Clotting Time 339 H* 11/11/22 05:26: WBC 5.7, RBC 3.85 L, Hgb 11.0 L, Hct 35.3 L, MCV 91.8, MCH 28.5, MCHC 31.1 L, RDW 13.0, Plt Count 175, MPV 8.6, Neut % (Auto) 60.0, Lymph % (Auto) 21.1, [place] % (Auto) 8.4, Eos % (Auto) 10.1, Baso % (Auto) 0.3, Neut # (Auto) 3.4, Lymph # (Auto) 1.2, [place] # (Auto) 0.5, Eos # (Auto) 0.6 H, Baso # (Auto) 0.0 11/11/22 05:26: Sodium 141, Potassium 3.9, Chloride 103, Carbon Dioxide 34 H, Anion Gap 7.9, BUN 13, Creatinine 0.70, Estimated Creat Clear 46, Estimated GFR 83, Est GFR ( Amer) 101, Glucose 94, Calcium 8.3 L I & O for Labs for Last 24 Hours: Intake & Output 11/08/22 11/09/22 11/10/22 11/11/22 23:59 23:59 23:59 23:59 Intake Total 1240 / 1530 650 / 1060 410 / 410 Output Total 0 / 0 478 / 478 425 / 425 0 / 0 Balance 0 / 1000 762 / 1052 225 / 635 410 / 410 Weight 54.25 kg 53.66 kg 54.091 kg 54.159 kg Microbiology Reports for the Last 24 Hours: Microbiology 11/08/22 18:25 Urine,Clean Catch Urine Culture - Final NO GROWTH AFTER 48 HOURS 11/08/22 18:40 Blood Blood Culture - Preliminary NO GROWTH AFTER 48 HOURS 11/08/22 18:16 Blood Blood Culture - Preliminary NO GROWTH AFTER 48 HOURS The patient's infection will respond to the chosen ABx?: Yes (E. CLOACAE IN URINE CULTURE, [place]
--- NOTE | 2022-11-11 09:27 | PC.NURSE ---
COURTESY TECH NOTE; ROUNDED ON PT 0800, PT DENIED NEED FOR ASSISTANCE WITH RESTROOM, NEED FOR DRINK, AND NEED TO REPOSITION, CALL LIGHT WITHIN REACH, NO FURTHER REQUESTS AT THIS TIME Lucia MALONE, WIL
--- NOTE | 2022-11-11 10:04 | EXP.PULM.PN ---
Subjective *Date: 11/11/22 *Time: 10:04 Interval history: No acute respiratory events overnight. Patient continued to remain on oxygen supplementation. Denies any new respiratory complaint Pulmonology Exam Inpatient Vital signs and Labs for Last 24 Hours: Temp Pulse Resp BP Pulse Ox 97.6 F 84 20 117/52 L 91 L 11/11/22 08:00 11/11/22 08:00 11/11/22 08:00 11/11/22 08:00 11/11/22 08:00 Laboratory Results - last 24 hr 11/10/22 13:07: Activated Clotting Time 339 H* 11/11/22 05:26: WBC 5.7, RBC 3.85 L, Hgb 11.0 L, Hct 35.3 L, MCV 91.8, MCH 28.5, MCHC 31.1 L, RDW 13.0, Plt Count 175, MPV 8.6, Neut % (Auto) 60.0, Lymph % (Auto) 21.1, Young % (Auto) 8.4, Eos % (Auto) 10.1, Baso % (Auto) 0.3, Neut # (Auto) 3.4, Lymph # (Auto) 1.2, Young # (Auto) 0.5, Eos # (Auto) 0.6 H, Baso # (Auto) 0.0 11/11/22 05:26: Sodium 141, Potassium 3.9, Chloride 103, Carbon Dioxide 34 H, Anion Gap 7.9, BUN 13, Creatinine 0.70, Estimated Creat Clear 46, Estimated GFR 83, Est GFR ( Amer) 101, Glucose 94, Calcium 8.3 L I & O for Labs for Last 24 Hours: Intake & Output 11/08/22 11/09/22 11/10/22 11/11/22 23:59 23:59 23:59 23:59 Intake Total 1240 / 1530 650 / 1060 410 / 410 Output Total 0 / 0 478 / 478 425 / 425 0 / 0 Balance 0 / 1000 762 / 1052 225 / 635 410 / 410 Weight 119 lb 9.6 oz 118 lb 4.8 oz 119 lb 4 oz 119 lb 6.4 oz Microbiology Reports for the Last 24 Hours: Microbiology 11/08/22 18:25 Urine,Clean Catch Urine Culture - Final NO GROWTH AFTER 48 HOURS 11/08/22 18:40 Blood Blood Culture - Preliminary NO GROWTH AFTER 48 HOURS 11/08/22 18:16 Blood Blood Culture - Preliminary NO GROWTH AFTER 48 HOURS Constitutional: Present mild distress Head: Present normocephalic and atraumatic ENT: Present normal exam, normal oropharynx and mucous membranes moist Neck: Present normal inspection and full ROM Respiratory: Present respiratory distress, crackles and able to speak in complete sentences; Absent prolonged expiratory phase or wheezes Cardiac: Present S1/S2, Tachycardia and radial pulses present GI: Present soft, distention and tenderness; Absent guarding Rectal (female): Present deferred (female): Present deferred Skin: Present intact; Absent cyanosis or jaundice Neuro: Present alert, awake and oriented x 3 Extremities: Present normal inspection; Absent clubbing or cyanosis Psychiatric: Present normal affect and cooperative Assessment and Plan *Assessment and plan (1) COPD (chronic obstructive pulmonary disease): Status: Acute Category: Medical Code(s): J44.9 - Chronic obstructive pulmonary disease, unspecified (2) Chronic respiratory failure with hypoxia: Status: Acute Category: Medical Code(s): J96.11 - Chronic respiratory failure with hypoxia Plan 67-year-old history of COPD. Long-term oxygen therapy at home, CAD, hypertension, peripheral vascular disease. Most recent COPD exacerbation August 2022. Patient is being managed for UTI as an outpatient basis, presented to the ER with dysuria chills suprapubic pain and shortness of breath. Patient was initiated on sepsis protocol received fluid bolus and was initiated on ceftriaxone pending urine and blood cultures. CTA from admission reviewed, no evidence of acute pulmonary embolism. No airspace disease/consolidation. Bilateral centrilobular emphysematous changes diffuse. VBG upon his admission evidence of hypoxic/hypercarbic respiratory failure. No evidence of leukocytosis. Tmax 102.1 upon admission. Hemodynamically stable. COVID-19 and flu PCR negative On initial consult exam Auscultation mild expiratory wheeze. Patient admits baseline respiratory status. Predominant complaint including abdominal pain. Interval update: No acute respiratory vents overnight. Denies any new respiratory complaints. A-fib RVR status post Cardizem drip cardiology followi
--- NOTE | 2022-11-11 10:08 | PC.NURSE ---
Addendum entered by Angela Parry RN 11/11/22 12:18: 1015 diltiazem drip stopped 30 minutes after admin of PO Diltiazem per orders from nikki lombardo. Original Note: 0755 diltiazem drip decreased to 5ml/hr r/t heart rate less than 100. notified Nikki Lombardo face to face at this time. 0808 pt noted to be in nsr. ekg to be obtained r/t rhythm change.
--- NOTE | 2022-11-11 10:09 | PC.NURSE ---
0945 notified Nikki lombardo face to face that pt is concerned about taking new medications. pt states that she DOES NOT take metoprolol at home. she took it years ago but has not taken it recently. pt was advised that it was filled in august. she states that she picked it up, but has not taken it because she wanted to talk to her PCP first. pt advised that the dose was since increased to 100mg, but she has never picked it up. per nikki lombardo, only give 25mg po daily of metoprolol.
--- NOTE | 2022-11-11 11:03 | PC.NURSE ---
Per Dr Zachary hussein diltiazem and nitro drip in computer. [id number]
--- NOTE | 2022-11-11 11:14 | PC.NURSE ---
called and updated pt daughter about discharge plans this afternoon. 1110
--- NOTE | 2022-11-11 14:38 | PC.NURSE ---
COURTESY TECH NOTE; ROUNDED ON PT 1430, PT DENIED NEED FOR ASSISTANCE WITH RESTROOM, DRINK, OR NEED TO REPOSITION. PT REQUESTED A NEBULIZER TREATMENT, NOTIFIED NURSE. NO FURTHER REQUESTS AT THIS TIME, CALL LIGHT WITHIN REACH. Lucia MALONE, SRNA
--- NOTE | 2022-11-11 16:53 | EXP.DC.SUM ---
General Admission date:: 11/08/22 Discharge date: 11/11/22 HPI HPI HPI: Ms. Hurst is a 67-year-old female with a past medical history of COPD, home oxygen dependent at 3L, Anxiety Disorder, CAD, Hypertension, PAD. She presents to [facility] due to a 1-day history of chills, generalized weakness, dysuria, suprapubic pain and shortness of air. Information for the history and physical was obtained from the patient and daughter at bedside. Both report that the patient was diagnosed with a UTI 4 days prior to admission and treated outpatient with Nitrofuratoin and Pyridum. The patient has a history of E. coli UTI and labs were reviewed, the patient has a history of resistance to both Bactrim and PCN. They reported that the patient was taking her medications and symptoms started. In the ER, the patient underwent a Cxray that showed no acute findings, CBC and CMP were unremarkable. VBG showed no acute findings. Urinalysis was positive for nitrates, had 5-10 WBC and trace bacteria. In the ER the patient was noted to have a HR of 135, EKG showed Sinus Tachycardia, Temperature was 102.1, RR was 32. The patient was admitted with initial impression: Sepsis. In the ER, the patient received iv fluids at 30 ml/kg, was given Rocephin, both urine culture and blood cultures were obtained in the ER. Hospital Course Hospital Course Hospital Course: The patient improved with Rocephin. Urine and blood cultures had no growth. She received 3 days of Rocephin and was discharged on 4 days of cefdinir. Hospital course was complicated by elevated troponin levels. Cardiology performed a left hear catheterization; 3 drug eluting stents were placed in the RCA. Echo showed LVEF 60-65%. She is to continue taking her plavix, aspirin and atorvastatin. The patient had an episode of afib with RVR, hr near 130. She converted to NSR shortly after being started on a cardizem drip. She admitted to not taking her prescribed metoprolol and was counseled to take it. She was also started on diltiazem and eliquis by Cardiology and will need to follow up with them in clinic in 1-2 weeks. Exam Data for Last 24 hours Vital signs and Labs for Last 24 Hours: Temp Pulse Resp BP Pulse Ox 97.4 F L 73 20 115/62 100 11/11/22 16:00 11/11/22 16:00 11/11/22 16:00 11/11/22 16:00 11/11/22 16:00 Laboratory Results - last 24 hr 11/11/22 05:26: WBC 5.7, RBC 3.85 L, Hgb 11.0 L, Hct 35.3 L, MCV 91.8, MCH 28.5, MCHC 31.1 L, RDW 13.0, Plt Count 175, MPV 8.6, Neut % (Auto) 60.0, Lymph % (Auto) 21.1, [place]barger % (Auto) 8.4, Eos % (Auto) 10.1, Baso % (Auto) 0.3, Neut # (Auto) 3.4, Lymph # (Auto) 1.2, [place]ger # (Auto) 0.5, Eos # (Auto) 0.6 H, Baso # (Auto) 0.0 11/11/22 05:26: Sodium 141, Potassium 3.9, Chloride 103, Carbon Dioxide 34 H, Anion Gap 7.9, BUN 13, Creatinine 0.70, Estimated Creat Clear 46, Estimated GFR 83, Est GFR ( Amer) 101, Glucose 94, Calcium 8.3 L I & O for Last 24 hours: Intake & Output 11/08/22 11/09/22 11/10/22 11/11/22 23:59 23:59 23:59 23:59 Intake Total 1240 / 1530 650 / 1060 650 / 650 Output Total 0 / 0 478 / 478 425 / 425 200 / 200 Balance 0 / 1000 762 / 1052 225 / 635 450 / 450 Weight 54.25 kg 53.66 kg 54.091 kg 54.159 kg Microbiology Reports for the Last 24 Hours: Microbiology 11/08/22 18:25 Urine,Clean Catch Urine Culture - Final NO GROWTH AFTER 48 HOURS 11/08/22 18:40 Blood Blood Culture - Preliminary NO GROWTH AFTER 48 HOURS 11/08/22 18:16 Blood Blood Culture - Preliminary NO GROWTH AFTER 48 HOURS Constitutional Constitutional: no acute distress *Routine HEENT Exam Head: Present normocephalic Eye: Present EOMI and PERRL ENT: Present mucous membranes moist *Routine Neck Exam Neck: Present supple; Absent lymphadenopathy *Routine Respiratory Exam Respiratory: Present CTA bilaterally *Routine Cardiovascular Exam C
--- NOTE | 2022-11-14 14:26 | CARE MANAGER ---
Attempted post-discharge phone interview with patient, no answer. Left message.
== END 2022-11-11 16:55 | disposition home or self-care (01) | DRG 853 ==
LOC: ER 19:37 → 2ND 19:48
PROVIDERS: Internal Medicine; Nurse Practitioner Family; Admitting Provider Internal Medicine Adolescent Medicine; Emergency Provider Student in an Organized Health Care Education/Training Program; PCP Physician Assistant; Visit Provider Internal Medicine Adolescent Medicine
DX: A41.9 Sepsis, unspecified organism (principal); I21.4 Non-ST elevation (NSTEMI) myocardial infarction; I25.42 Coronary artery dissection; N39.0 Urinary tract infection, site not specified; I42.1 Obstructive hypertrophic cardiomyopathy; J96.11 Chronic respiratory failure with hypoxia; Z99.81 Dependence on supplemental oxygen; Z79.899 Other long term (current) drug therapy; F41.9 Anxiety disorder, unspecified; F32.A Depression, unspecified; J44.9 Chronic obstructive pulmonary disease, unspecified; E78.5 Hyperlipidemia, unspecified; I73.9 Peripheral vascular disease, unspecified; I10 Essential (primary) hypertension; F17.210 Nicotine dependence, cigarettes, uncomplicated; Z71.6 Tobacco abuse counseling; I48.0 Paroxysmal atrial fibrillation; I25.10 Atherosclerotic heart disease of native coronary artery without angina pectoris
CPT/HCPCS: 36415; 71045; 71275; 80048; 80053; 80061; 81001; 82306; 82607; 82803; 83605; 83735; 84443; 84484; 85007; 85025; 85347; 87040; 87086; 87088; 87186; 87636; 92928; 93005; 93308; 93458; 94640; 94760; 94761; 99152; 99153; 99291; C1725; C1769; C1874; C1876; C9600; C9803; J0696; J1644; J2405; Q9967; U0003; U0005

== ENCOUNTER → 2022-11-21 10:54 | Outpatient (CLI) | payer MEDICARE, MEDICAID, SELFPAY ==
--- NOTE | 2022-11-21 10:58 | CT_ITS ---
FINAL REPORT TECHNIQUE: Axial imaging of the chest was obtained without contrast. Reformatted images were also obtained and reviewed.This study was performed with techniques to keep radiation doses as low as reasonably achievable, (ALARA). Individualized dose reduction technique using automated exposure control or adjustment of mA and/or kV according to the patient's size were employed. CLINICAL HISTORY: abnormal CTA COMPARISON: Report from 11/09/2022. FINDINGS: There is no axillary adenopathy. There is [id number] mediastinal adenopathy in the prevascular region, AP window and subcarinal regions which is stable when compared to prior report. Heart size is normal. There is no pericardial or pleural effusion. Limited images of the upper abdomen are unremarkable. There are moderately advanced changes of centrilobular emphysema. There is a 4 mm, noncalcified nodule in the periphery of the left lower lobe seen on image 148 of series 3. No other suspicious infiltrate or nodule is identified on lung window images. IMPRESSION: 4 mm noncalcified nodule in the left lower lobe, recommend 1 year follow-up per Fleischner criteria. Reviewed, Interpreted and Dictated by Regino Johnson MD Transcribed by Zoey Espinosa Authenticated and [facility]
== END ==
LOC: RAD 10:55
PROVIDERS: PCP Physician Assistant; Visit Provider Internal Medicine
DX: R93.89 Abnormal findings on diagnostic imaging of other specified body structures (principal)
CPT/HCPCS: 71250

== ENCOUNTER → 2022-12-12 09:54 | Outpatient (CLI) | payer MEDICARE, MEDICAID, SELFPAY | PROVIDERS: PCP Physician Assistant; Visit Provider Internal Medicine Pulmonary Disease | DX: J96.11 Chronic respiratory failure with hypoxia (principal); J44.9 Chronic obstructive pulmonary disease, unspecified | CPT/HCPCS: 94060; 94618; 94727; 94729 ==

== ENCOUNTER → 2022-12-16 09:36 | Outpatient (CLI) | payer MEDICARE, MEDICAID, SELFPAY ==
[2022-12-16 09:54] LABS: Basophils % 0.8 % (0.1-2.0); Eosinophils # 0.3 K/mm3 (0.0-0.4); Eosinophils % 6.4 % (0.1-12.0); Hematocrit 31.3 % (37.0-47.0); Hemoglobin 9.9 g/dL (12.2-16.2); Lymphocytes # 1.7 K/mm3 (0.7-4.5); Lymphocytes % 33.8 % (10-50); Mean Corpuscular HGB Conc 31.6 g/dL (31.8-35.4); Mean Corpuscular Hemoglobin 27.7 pg (27.0-31.2); Mean Corpuscular Volume 87.6 fl (81-99); Mean Platelet Volume 8.8 fl (7.4-10.4); Monocytes # 0.3 K/mm3 (0.1-1.0); Monocytes % 6.3 % (1.7-9.3); Neutrophils # 2.7 K/mm3 (1.8-7.8); Neutrophils % 52.7 % (37.0-80.0); Platelet Count 253 K/mm3 (142-424); Red Blood Count 3.58 M/mm3 (4.20-5.40); Red Cell Distribution Width 13.7 % (11.5-17.5)
[2022-12-16 11:09] LABS: Thyroid Stimulating Hormone 2.53 uIU/mL (0.465-4.68)
[2022-12-16 11:45] LABS: Vitamin B12 463 pg/mL (239-931)
[2022-12-16 11:49] LABS: Folate 7.19 ng/mL
[2022-12-20 18:56] LABS: Anti-Striation (muscle) Abs Negative (Neg:<1:100)
[2023-01-14 11:15] LABS: AChR Binding Abs <0.03
[2023-01-14 11:16] LABS: AChR Blocking Abs 19
[2023-01-14 11:17] LABS: AChR Modulating Ab 8
== END ==
PROVIDERS: PCP Physician Assistant; Visit Provider Specialist
DX: R41.3 Other amnesia (principal); R26.0 Ataxic gait; I10 Essential (primary) hypertension
CPT/HCPCS: 36415; 82607; 82746; 83519; 84443; 85025; 86255

== ENCOUNTER → 2022-12-19 07:30 | Outpatient (CLI) | payer MEDICARE, MEDICAID, SELFPAY ==
--- NOTE | 2022-12-19 07:34 | CT_ITS ---
FINAL REPORT TECHNIQUE: Thin section axial images were obtained from skull base to vertex without contrast. Coronal and sagittal reconstruction images were obtained from the axial data. Exam was performed using dose reduction technique. CLINICAL HISTORY: Ataxia COMPARISON: 07/21/2022 FINDINGS: There is no mass effect or midline shift. There is no hydrocephalus. There is no intracranial hemorrhage. The posterior fossa is without acute abnormality. The basilar cisterns are preserved. The soft tissues are without acute abnormality. No acute osseous abnormality is identified. No change is noted since the prior CT of 07/21/2022. IMPRESSION: No acute intracranial abnormality. Reviewed, Interpreted and Dictated by Silke Gil MD Transcribed by Rafaela Tao Authenticated and [facility]
== END ==
LOC: RAD 07:31
PROVIDERS: PCP Physician Assistant; Visit Provider Specialist
DX: R26.0 Ataxic gait (principal); R29.818 Other symptoms and signs involving the nervous system; R39.15 Urgency of urination
CPT/HCPCS: 70450

== ENCOUNTER → 2022-12-22 08:03 | Outpatient (CLI) | payer MEDICARE, MEDICAID, SELFPAY ==
--- NOTE | 2022-12-22 08:07 | CA_ITS ---
APPROVED REPORT Exam: Pharmacologic Technologist: Candi Ni, Ht: 5 ft 2 in Wt: 119 lbs BSA: 1.53 m2 HR: 88 bpm BP: 134/66 mmHg Rhythm: NSR, PVCS Medical History Medical History: HTN, Hyperlipidemia, , Smoking Medications: Lisinopril,,,,, Gabapentin,,,,, Atorvastatin,,,,, Metoprolol Succinate,,,,, Albuterol,,,,, Vit D3,,,,, CloPIdogrel,,,,, DilTAZEM,,,,, ElIQUIS,,,,, Trelegy,,,,, Vit D2,,,,, KloNIPIN,,,,, Allergies: LEVOFLOXACIN Cardiac Risk Factors: HTN, Hyperlipidemia, Smoking Stress Test Details Test: LEXISCAN HR Resting HR: 90 bpm Max Heart Rate (APMHR): 152 bpm Max HR Achieved: 114 bpm Target HR (85% APMHR): 129 bpm % of APMHR: 75 Recovery HR: 109 bpm BP Resting BP: 134/66 mmHg Max BP: 134/66 mmHg Recovery BP: 103.0/40.0 mmHg ECG Resting ECG: NSR, NON-SPECIFIC ST CHANGER IN INFERIOR LEADS, PVCS Stress ECG: NO CHANGE Arrhythmia: FREQUENT PVCS Recovery ECG: NO CHANGE Recovery Arrhythmia: FREQUENT PVCS Clinical Exercise duration: 04:00 min Highest Stage Achieved: Exercise capacity: 1.0 METs Stress ECG Conclusion PT HAD SOA, HEAD DISCOMFORT AND MILD STOMACH DISCOMFORT MODERATELY FREQUENT, ISOLATED, UNIFORM PVCS DURING STRESS AND AT RECOVERY NO SIGNIFICANT ST CHANGES CONCLUSION NON-DIAGNOSTIC LEXISCAN STRESS TEST DUE TO BASELINE ST ABNORMALITIES MYOVIEW IMAGES REPORTED SEPARATELY Test Summary REST 07:24 . . 90 . 134/ 66 . . Stage 1 01:00 . . 103 . . . . Stage 2 01:00 . . 106 . 115/ 44 . . Stage 3 01:00 . . 104 . 113/ 46 . . Stage 4 01:00 . . 104 . 121/ 48 . Stop exercise at 04:00 RECOVERY 01:00 . . 103 . . . . RECOVERY 02:00 . . 100 . 110/ 53 . . RECOVERY 03:00 . . 102 . 110/ 53 . . RECOVERY 04:00 . . 100 . 112/ 51 . . RECOVERY 05:00 . . 105 . 112/ 51 . . RECOVERY 06:00 . . 103 . 125/ 56 . . RECOVERY 07:00 . . 100 . 125/ 56 . . RECOVERY 08:00 . . 101 . 129/ 50 . . RECOVERY 09:00 . . 105 . 129/ 50 . . RECOVERY 10:00 . . 102 . 129/ 50 . . RECOVERY 11:00 . . 111 . 103/ 40 . . RECOVERY 11:55 . . 113 . 103/ 40 . . Electronically signed by : Alda Sifuentes, 12/23/2022 13:03:26
--- NOTE | 2022-12-22 08:07 | NM_ITS ---
APPROVED REPORT Exam: Nuclear Stress Test Indication: CAD, H/O IA, 5 STENTS, HTN, HYPERLIPIDEMIA, TOB USE, FM HX, SOB Patient Location: Outpatient Stress Tech: [facility] Tech:Evonne Wagner NIDAAlicia RT (R)(N)(M) Ht: 5 ft 2 in Wt: 119 lbs Bra Size: 34B HR: 90 bpm BP: 134/66 mmHg BSA: 1.53 m2 Rhythm: NSR TID: 0.76 BMI: 21.7 History: CAD, H/O IA, 5 STENTS, HTN, HYPERLIPIDEMIA, TOB USE, FM HX, SOB PT CANNOT LAY ON STOMACH FOR PRONE IMAGES Procedure: Patient received 0.4 mg of intravenous Lexiscan, resting heart rate 90 bpm, resting blood pressure 134/66 mmHg, with Lexiscan maximum heart rate achieved was 114 bpm which is % of the maximum predicted heart rate and blood pressure was 134/66 mmHg. With Lexiscan, patient denied any complaint of chest pain. Cardiac Stress and Resting SPECT Images: Cardiac Stress and Resting SPECT images were obtained using technetium 99m Myoview 28.7 mCi stress and 9.95 mCi at rest. The patient was unable to lie on her abdomen for prone imaging. Therefore prone stress imaging could not be obtained. This may affect the diagnostic interpretation of the study findings. Resting and stress imaging in supine position demonstrate no evidence of fixed or reversible perfusion defects. Gated imaging demonstrates normal global and regional LV systolic function. LVEF is calculated at > 75%. Conclusion: The patient was unable to lie on her abdomen for prone imaging. Therefore prone stress imaging could not be obtained. This may affect the diagnostic interpretation of the study findings. No evidence of fixed or reversible perfusion defects. Gated imaging demonstrates normal global and regional LV systolic function. LVEF is calculated at > 75%. Electronically signed by : Alda Sifuentes, 12/23/2022 13:05:27
== END ==
LOC: RAD 08:04
PROVIDERS: PCP Physician Assistant; Visit Provider Nurse Practitioner Family
DX: R07.89 Other chest pain; R06.02 Shortness of breath
CPT/HCPCS: 78452; 93017; A9502; J0280; J2785

== ENCOUNTER 2023-02-17 17:35 | Observation (INO) | payer MEDICARE, MEDICAID, SELFPAY ==
[2023-02-17] VITALS (16 sets, daily range): BP systolic 100–156; BP diastolic 42–79; PULSE 83–117; RESP 16–22; TEMP 36.4–36.7; O2SAT 98–100; BMI 22.4; BMI 22.6
--- NOTE | 2023-02-17 17:42 | ECG_ITS ---
APPROVED REPORT Exam: Resting ECG HR:93 bpm ECG Measurements Heart Rate 93 AXES OH 137 P 84 QRSd 79 QRS 81 QT 353 T 68 QTc 404 Conclusion SINUS RHYTHM POSSIBLE RIGHT VENTRICULAR CONDUCTION DELAY [RSR (QR) IN V1/V2] BORDERLINE ECG UNCONFIRMED REPORT Electronically signed by : Edgard Dasilva MD 02/19/2023 15:08:02
--- NOTE | 2023-02-17 17:49 | PC.NURSE ---
DR SZYMANSKI AT BEDSIDE
--- NOTE | 2023-02-17 17:50 | XR_ITS ---
PROCEDURE INFORMATION: Exam: XR Chest Exam date and time: 02/17/2023 5:55 PM Age: 67 years old Clinical indication: Shortness of breath; Additional info: Cough, SOA, recent pna TECHNIQUE: Imaging protocol: Radiologic exam of the chest. Views: 2 views. COMPARISON: CT CHEST WO CON 11/21/2022 11:14 AM FINDINGS: Lungs: Unremarkable. No consolidation. Pleural spaces: Unremarkable. No pleural effusion. No pneumothorax. Heart/Mediastinum: Unremarkable. No cardiomegaly. Bones/joints: Unremarkable. IMPRESSION: No acute findings.
--- NOTE | 2023-02-17 17:52 | HMH.EDGENADL ---
Discharge Plan Disposition Patient Disposition: Admitted Condition: Good Clinical Impressions Clinical Impression: Symptomatic anemia, Acute exacerbation of chronic obstructive pulmonary disease Discharge ED Provider: Nitza Basilio General Adult HPI General Chief complaint: Shortness of Breath/Dyspnea Stated complaint: SARAH has COPD Time Seen by Provider: 02/17/23 17:39 Mode of Arrival: Wheelchair Limitations: No Limitations Description of Symptoms (Recalled from ER Triage Doc. by RN): PT REPORTS INCREASED SHORTNESS OF BREATH FOR 3 WEEKS, PRODUCTIVE COUGH AND BODYACHES PT WEARS HOME O2 AT 3L/NC History of Present Illness HPI narrative: This patient is a 67-year-old female with a history of COPD on 2 L nasal cannula, CAD, hypertension, hyperlipidemia, peripheral arterial disease, and hypertensive heart disease presenting to the emergency department for evaluation with concern for shortness of breath. She reports that she was diagnosed with pneumonia approximately 1 month ago and was supposed scribed oral antibiotics. She states that she completed these, however she has continued to cough for the last 3 weeks. She is now coughing stuff up. She denies any fevers, chills, chest pain, abdominal pain, nausea, vomiting, changes bowel movements, or other concerns, but she does note body aches. She has been using breathing treatments at home with minimal improvement. Related Data Home Medications Medication Instructions Recorded Confirmed ergocalciferol (vitamin D2) 1,250 1,250 mcg PO WEEKLY 11/17/22 01/20/23 mcg (50,000 unit) capsule cholecalciferol (vitamin D3) 50 50 mcg PO DAILY 12/14/22 01/20/23 mcg (2,000 unit) capsule Previous Rx's Medication Instructions Recorded aspirin 81 mg tablet,delayed 81 mg PO DAILY #30 tabs 11/11/22 release atorvastatin 10 mg tablet 10 mg PO HS #30 tabs 11/11/22 diltiazem HCl 120 mg 120 mg PO DAILY #30 caps 11/11/22 capsule,extended release 24 hr clopidogrel 75 mg tablet 75 mg PO DAILY #90 tabs 11/30/22 clonazepam 1 mg tablet (Klonopin) 1 mg PO BID Anxiety #60 tabs 12/02/22 gabapentin 600 mg tablet 600 mg PO TID Pain #90 tabs 12/02/22 fluticasone fur. 100 mcg-umeclid 1 ea inhalation DAILY #60 ea 12/13/22 62.5 mcg-vilant 25 mcg inhalat.powder (Trelegy Ellipta) ipratropium 0.5 mg-albuterol 3 mg 3 ml inhalation QID PRN shortness 12/13/22 (2.5 mg base)/3 mL nebulization of breath or wheezing 90 days #270 soln mL apixaban 5 mg tablet (Eliquis) 5 mg PO BID #180 tabs 01/05/23 azithromycin 250 mg tablet See Rx Instructions PO .COMPLEX #6 01/20/23 tabs benzonatate 100 mg capsule 100 mg PO TID PRN cough #30 caps 01/20/23 ondansetron 4 mg disintegrating 4 mg PO Q8H PRN nausea and 01/20/23 tablet vomiting #30 tabs prednisone 20 mg tablet 20 mg PO BID 5 days #10 tabs 01/20/23 metoprolol succinate 25 mg 25 mg PO DAILY #90 tabs 01/23/23 tablet,extended release 24 hr lisinopril 2.5 mg tablet See Rx Instructions .Route 01/24/23 .COMPLEX #90 tabs albuterol sulfate 90 mcg/actuation See Rx Instructions .Route 02/17/23 aerosol inhaler .COMPLEX #9 grams Allergies Allergy/AdvReac Type Severity Reaction Status Date / Time levofloxacin Allergy Intermediate blisters Verified 01/20/23 10:11 in mouth, diarrhea PFSH PFSH Disclaimer: The information contained in this section may have been updated after the patient was seen, as this information can be updated by other users. Medical History Anxiety Hampton's palsy CAD (coronary artery disease) Chronic pain Chronic respiratory failure with hypoxia O2 dependent COPD exacerbation COPD mixed type Depression Encounter for screening for malignant neoplasm of lung Family history of asthma H/O Hampton's palsy HLD (hyperlipidemia) HTN (hypertension) Hypertrophic obstructive cardiomyopathy (2020) Cardiac cath Insomnia Lung nodule seen on imaging study PAD (peripheral artery dise
[2023-02-17 17:56] LABS: Coronavirus 19, PCR Not Detected (NotDetected); Influenza A, PCR Not Detected (NotDetected); Influenza B, PCR Not Detected (NotDetected)
[2023-02-17 18:04] LABS: Basophils % 0.8 % (0.1-2.0); Eosinophils # 0.2 K/mm3 (0.0-0.4); Eosinophils % 3.8 % (0.1-12.0); Hematocrit 21.8 % (37.0-47.0); Lymphocytes # 1.8 K/mm3 (0.7-4.5); Lymphocytes % 36.6 % (10-50); Mean Corpuscular HGB Conc 29.8 g/dL (31.8-35.4); Mean Corpuscular Hemoglobin 22.7 pg (27.0-31.2); Mean Corpuscular Volume 76.1 fl (81-99); Mean Platelet Volume 10.2 fl (7.4-10.4); Monocytes # 0.4 K/mm3 (0.1-1.0); Monocytes % 7.5 % (1.7-9.3); Neutrophils # 2.5 K/mm3 (1.8-7.8); Neutrophils % 51.3 % (37.0-80.0); Platelet Count 250 K/mm3 (142-424); Red Blood Count 2.86 M/mm3 (4.20-5.40); White Blood Count 4.8 K/mm3 (4.8-10.8)
--- NOTE | 2023-02-17 18:04 | PC.NURSE ---
PT TO XR
[2023-02-17 18:06] LABS: Chloride 110 mmol/L (98-107); Hemoglobin 6.5 g/dL (12.2-16.2); Potassium 4.2 mmoL/L (3.5-5.1); Sodium 143 mmol/L (136-145)
--- NOTE | 2023-02-17 18:07 | PC.NURSE ---
notified Dr. Basilio of critical hemaglobin result
[2023-02-17 18:08] LABS: Alanine Aminotransferase 29 U/L (12-78); Aspartate Amino Transferase 35 U/L (14-36); Blood Urea Nitrogen 13 mg/dl (7-17); Creatinine Clearance Estimated 47 mL/min (50-200); Estimated Glomerular Filt Rate 83 ml/min (>60); GFR (African American) 101 ML/MIN (>60)
[2023-02-17 18:09] LABS: Albumin Level 3.2 g/dl (3.5-5.0); Albumin/Globulin Ratio 1.1 (1.1-1.8); Alkaline Phosphatase 115 U/L (38-126); Anion Gap 10.2 mEq/L (5-15); Bilirubin,Total 0.3 mg/dl (0.2-1.3); Calcium 9.2 mg/dl (8.4-10.2); Carbon Dioxide 27 mmol/L (22.0-30.0); Glucose 101 mg/dl (74-100); Total Protein,Serum 6.2 g/dl (6.3-8.2)
--- NOTE | 2023-02-17 18:10 | PC.NURSE ---
RETURNED FROM XR
--- NOTE | 2023-02-17 18:15 | PC.NURSE ---
notified RT of vbg order
--- NOTE | 2023-02-17 18:19 | PC.NURSE ---
DR SZYMANSKI AT BEDSIDE TO UPDATE PT AND FAMILY
[2023-02-17 18:24] LABS: Troponin I < 0.01 ng/ml (0.00-0.034)
--- NOTE | 2023-02-17 18:30 | PC.NURSE ---
BLOOD CONSENT SIGNED
[2023-02-17 18:39] LABS: Lactic Acid 0.9 mmol/L (0.7-2.1)
[2023-02-17 18:45] LABS: VBG Base Excess -1.7 mmol/L (-2.4-2.3); VBG HCO3 24.2 mmol/L (23-30); VBG Oxygen Saturation 92.8 % (50-70); VBG PCO2 47.1 mmol/L (35-51); VBG PH 7.33 mmol/L (7.31-7.41); VBG PO2 69.1 mmol/L (28-40); VBG Total CO2 25.7 mmol/L (23-27)
--- NOTE | 2023-02-17 19:51 | PC.NURSE ---
OBSERVATION ADMISSION TO 201 WITH DX OF ANEMIA AND COPD WITH EXACERBATION TO SERVICE OF HOSPITALIST.
[2023-02-17 20:01] LABS: Occult Blood,Stool Positive (Negative)
--- NOTE | 2023-02-17 20:44 | EXP.HP ---
History of Present Illness *Admission Date: 02/17/23 *Reason for visit:: Anemia *History of present illness: 67-year-old female presented to the ED with c/o SOA for two weeks. PMHX of COPD on 2 L nasal cannula, CAD, hypertension, hyperlipidemia, peripheral arterial disease, tobacco abuse, anxiety and hypertensive heart disease. She recently was treated with antibiotics for pneumonia. She denies any fevers, chills, chest pain, abdominal pain, nausea, vomiting, changes bowel movements, or other concerns, but she does note body aches. She has been using breathing treatments at home with minimal improvement. She has been without her rescue inhaler due to being unable to get a new prescription. The patient has been seeing a neurologist for balancing issues who noticed a trending decrease in her Hgb. She has an appointment with GI on April 07 to discuss a colonoscopy. In the ED she required 3 breathing treatments due to wheezing upon arrival. She is currently on 3L NC. Her chest xray is unremarkable for pneumonia or infection. Her lab work reveals a Hgb of 6.5. It was 9.9 on 12/16/22. On 11/10/22 she had a left heart cath that resulted in two drug eluting stents being placed in the ostial proximal mid and distal dominant right coronary artery. She was then started on eliquis 5 mg BID. Since then her Hgb has been down trending. A bedside stool occult was positive. She denies any known upper or lower GI bleeding. Respiratory pannel is negative for flu/ COVID. The ED physician consulted the hospitalist team for further medical management. Upon admission exam she is pale, tachypenic, and her only c/o is SOA and anxiety. She arrives to the floor in no acute distress. [facility] Disclaimer: The information contained in this section may have been updated after the patient was seen, as this information can be updated by other users. Medical History Anxiety Hampton's palsy CAD (coronary artery disease) Chronic pain Chronic respiratory failure with hypoxia O2 dependent COPD exacerbation COPD mixed type Depression Encounter for screening for malignant neoplasm of lung Family history of asthma H/O Hampton's palsy HLD (hyperlipidemia) HTN (hypertension) Hypertrophic obstructive cardiomyopathy (2020) Cardiac cath Insomnia Lung nodule seen on imaging study PAD (peripheral artery disease) Presence of arterial stent PTSD (post-traumatic stress disorder) Pulmonary nodule Sinus tachycardia Smoking greater than 30 pack years SOB (shortness of breath) on exertion Vitamin D deficiency Surgical History S/P peripheral artery angioplasty with stent placement Family History Other Family history of hypertension Social History Smoking Status: Current every day smoker tobacco type: cigarettes packs per day: 1 pack-years: 52 second hand exposure: No alcohol intake: never substance use type: denies use current occupational status: retired Travel in the last 8 weeks: None household members: children and none housing: house lives independently: No Review of Systems *Cardiovascular Cardiovascular: Reports dyspnea and Reports dyspnea on exertion *Respiratory Respiratory: Reports dyspnea and Reports dyspnea on exertion *Gastrointestinal Gastrointestinal: Reports system reviewed and no additional complaints, except as documented, Denies coffee ground emesis, Denies diarrhea and Denies melena *Genitourinary Genitourinary: Reports system reviewed and no additional complaints, except as documented *Musculoskeletal Musculoskeletal: Reports muscle weakness *Neurologic Neurologic: Reports system reviewed and no additional complaints, except as documented Meds Home Medications and Allergies Home Medications Medication Instructions Recorded Conf
--- NOTE | 2023-02-17 20:46 | PC.NURSE ---
Patient transported to floor room 201 by WIL
[2023-02-17 21:56] LABS: Troponin I < 0.01 ng/ml (0.00-0.034)
--- NOTE | 2023-02-17 23:45 | PC.NURSE ---
Patient very anxious, sitting on the side of bed. Stated she feels scared and doesn't feel good. Spoke with data input clerk regarding patient being anxious and tachycardic. Technology Sales Specialist is going to place an order for some ativan.
[2023-02-18] VITALS: PULSE 112
[2023-02-18 00:41] LABS: Basophils % 0.3 % (0.1-2.0); Eosinophils % 0.1 % (0.1-12.0); Hematocrit 27.3 % (37.0-47.0); Lymphocytes # 0.3 K/mm3 (0.7-4.5); Lymphocytes % 6.2 % (10-50); Mean Corpuscular HGB Conc 29.9 g/dL (31.8-35.4); Mean Platelet Volume 10.1 fl (7.4-10.4); Monocytes # 0.1 K/mm3 (0.1-1.0); Monocytes % 1.1 % (1.7-9.3); Neutrophils % 92.3 % (37.0-80.0); Platelet Count 225 K/mm3 (142-424); Red Blood Count 3.55 M/mm3 (4.20-5.40); Red Cell Distribution Width 16.6 % (11.5-17.5); White Blood Count 5.4 K/mm3 (4.8-10.8)
[2023-02-18 00:55] LABS: Troponin I < 0.01 ng/ml (0.00-0.034)
[2023-02-18 00:57] LABS: Hemoglobin 8.2 g/dL (12.2-16.2); MANUAL DIFFERENTIAL MANUAL DIFFERENTIAL (MANUAL DIFF)
[2023-02-18 01:20] LABS: Lymphocytes % 4 % (10-50); Neutrophils % 96 % (42-76); Platelet Estimate Normal; Total Cells Counted 100
[2023-02-18 01:21] LABS: Hypochromasia 1+
[2023-02-18 04:00] VITALS: BP 152/72; PULSE 110; PULSE 97; RESP 24; TEMP 36.6; O2SAT 97; BMI 22.5
--- NOTE | 2023-02-18 04:55 | PC.NURSE ---
patient very anxious through the night. 3L nc baseline saturating well. received one unit of prbcs, hgb came up to 8.2. patient has been tachycardic through the night. no complaints of pain. received a one time dose of ativan for anxiety.
[2023-02-18 07:24] VITALS: BP 136/79; PULSE 112; RESP 20; TEMP 36.4; O2SAT 99
[2023-02-18 07:45] LABS: Basophils % 0.2 % (0.1-2.0); Eosinophils % 0.1 % (0.1-12.0); Hematocrit 26.9 % (37.0-47.0); Hemoglobin 8.2 g/dL (12.2-16.2); Lymphocytes # 0.5 K/mm3 (0.7-4.5); Lymphocytes % 14.3 % (10-50); Mean Corpuscular HGB Conc 30.3 g/dL (31.8-35.4); Mean Corpuscular Hemoglobin 23.4 pg (27.0-31.2); Mean Corpuscular Volume 77.3 fl (81-99); Mean Platelet Volume 9.9 fl (7.4-10.4); Monocytes # 0.1 K/mm3 (0.1-1.0); Monocytes % 2.3 % (1.7-9.3); Neutrophils # 3.2 K/mm3 (1.8-7.8); Neutrophils % 83.2 % (37.0-80.0); Platelet Count 242 K/mm3 (142-424); Red Blood Count 3.48 M/mm3 (4.20-5.40); Red Cell Distribution Width 16.8 % (11.5-17.5); White Blood Count 3.8 K/mm3 (4.8-10.8)
[2023-02-18 07:56] LABS: Anion Gap 13.6 mEq/L (5-15); Blood Urea Nitrogen 17 mg/dl (7-17); Calcium 8.9 mg/dl (8.4-10.2); Carbon Dioxide 27 mmol/L (22.0-30.0); Chloride 107 mmol/L (98-107); Creatinine Clearance Estimated 47 mL/min (50-200); Estimated Glomerular Filt Rate 83 ml/min (>60); GFR (African American) 101 ML/MIN (>60); Glucose 156 mg/dl (74-100); Potassium 4.6 mmoL/L (3.5-5.1); Sodium 143 mmol/L (136-145)
[2023-02-18 08:00] VITALS: PULSE 110
[2023-02-18 11:01] VITALS: BP 165/69; PULSE 120; RESP 19; TEMP 36.8; O2SAT 98
--- NOTE | 2023-02-18 17:06 | EXP.DC.SUM ---
General Admission date:: 02/17/23 Discharge date: 02/18/23 HPI HPI HPI: 67-year-old female presented to the ED with c/o SOA for two weeks. PMHX of COPD on 2 L nasal cannula, CAD, hypertension, hyperlipidemia, peripheral arterial disease, tobacco abuse, anxiety and hypertensive heart disease. She recently was treated with antibiotics for pneumonia. She denies any fevers, chills, chest pain, abdominal pain, nausea, vomiting, changes bowel movements, or other concerns, but she does note body aches. She has been using breathing treatments at home with minimal improvement. She has been without her rescue inhaler due to being unable to get a new prescription. The patient has been seeing a neurologist for balancing issues who noticed a trending decrease in her Hgb. She has an appointment with GI on April 07 to discuss a colonoscopy. In the ED she required 3 breathing treatments due to wheezing upon arrival. She is currently on 3L NC. Her chest xray is unremarkable for pneumonia or infection. Her lab work reveals a Hgb of 6.5. It was 9.9 on 12/16/22. On 11/10/22 she had a left heart cath that resulted in two drug eluting stents being placed in the ostial proximal mid and distal dominant right coronary artery. She was then started on eliquis 5 mg BID. Since then her Hgb has been down trending. A bedside stool occult was positive. She denies any known upper or lower GI bleeding. Respiratory pannel is negative for flu/ COVID. The ED physician consulted the hospitalist team for further medical management. Upon admission exam she is pale, tachypenic, and her only c/o is SOA and anxiety. She arrives to the floor in no acute distress. Hospital Course Hospital Course Hospital Course: The patient was admitted to the medical floor with telemetry monitoring. She received 1 unit PRBCs with a morning hemoglobin 8.2. Her MCV identified microcytic anemia. Her COVID and flu test were negative. She reports never undergoing a colonoscopy. Her morning electrolytes and creatinine were normal. The patient reported to nursing staff that she wanted to leave the hospital. I was accompanied by nursing staff to discuss the patient's desire to leave AGAINST MEDICAL ADVICE. The patient was not intoxicated. She was free from distracting pain and appeared to have intact insight, judgment and reason during my evaluation. In my medical opinion the patient has the capacity to make decisions. The patient is also not under any duress to leave the hospital. In this scenario it would be battery to subject the patient to treatment against her will. I have voiced my concerns for the patient's health given that a full evaluation and treatment have not occurred. I have discussed the need for continued evaluation and treatment secondary to her diagnoses that present a risk of or morbidity. Risks including but not limited to permanent disability, prolonged hospitalization, prolonged illness and were discussed. The patient insisted on leaving AMA. She voiced taking responsibility for her decision making. Because I have been unable to convince the patient to stay, I offered her the opportunity to ask questions about her condition and to return to the ED with any concerns. I emphasized that leaving AGAINST MEDICAL ADVICE does not preclude returning to the ED for further evaluation. I strongly encouraged the patient to return to any ED at any time particularly with worsening symptoms. Exam Data for Last 24 hours Vital signs and Labs for Last 24 Hours: Temp Pulse Resp BP Pulse Ox O2 Del Method O2 Flow Rate 98.2 F 120 H 19 165/69 H 98 Nasal Cannula 2.5 02/18/23 11:01 02/18/23 11:01 02/18/23 11:01 02/18/23 11:01 02/18/23 11:01 02/18/23 11:01 02/18/23 11:01 Laboratory Results - last 24 hr 02/17/23 17:44: SARS-CoV-2 (PCR) Not detected, Influenza A Untype (PCR) Not detected, Influenza Type B (PCR) Not detected 02/17/23 17:50: WBC 4.8, RBC 2.86 L, Hgb 6.5 L*, Hct 2
== END 2023-02-18 11:38 | disposition left against medical advice (07) ==
LOC: ER 19:49 → 2ND 19:52
PROVIDERS: Nurse Practitioner Critical Care Medicine; Admitting Provider Family Medicine; Emergency Provider Emergency Medicine; PCP Physician Assistant; Visit Provider Family Medicine
DX: D64.89 Other specified anemias (principal); K92.2 Gastrointestinal hemorrhage, unspecified; J44.1 Chronic obstructive pulmonary disease with (acute) exacerbation; F41.9 Anxiety disorder, unspecified; I10 Essential (primary) hypertension; I73.9 Peripheral vascular disease, unspecified; I25.10 Atherosclerotic heart disease of native coronary artery without angina pectoris; E78.2 Mixed hyperlipidemia; F17.210 Nicotine dependence, cigarettes, uncomplicated; Z79.01 Long term (current) use of anticoagulants; Z79.899 Other long term (current) drug therapy; Z99.81 Dependence on supplemental oxygen; R19.5 Other fecal abnormalities
CPT/HCPCS: 36415; 71046; 80048; 80053; 82272; 82803; 83605; 84145; 84484; 85007; 85025; 86850; 87636; 93005; 99291; G0328; G0378; P9016

== ENCOUNTER → 2023-03-22 17:10 | Outpatient (CLI) | payer MEDICARE, MEDICAID, SELFPAY ==
[2023-03-22 15:38] LABS: Basophils % 0.7 % (0.1-2.0); Eosinophils # 0.3 K/mm3 (0.0-0.4); Eosinophils % 5.5 % (0.1-12.0); Hematocrit 28.1 % (37.0-47.0); Hemoglobin 8.9 g/dL (12.2-16.2); Lymphocytes # 1.3 K/mm3 (0.7-4.5); Lymphocytes % 25.4 % (10-50); Mean Corpuscular HGB Conc 31.8 g/dL (31.8-35.4); Mean Corpuscular Hemoglobin 23.6 pg (27.0-31.2); Mean Corpuscular Volume 74.3 fl (81-99); Mean Platelet Volume 10.4 fl (7.4-10.4); Monocytes # 0.4 K/mm3 (0.1-1.0); Monocytes % 7.8 % (1.7-9.3); Neutrophils # 3.2 K/mm3 (1.8-7.8); Neutrophils % 60.7 % (37.0-80.0); Platelet Count 202 K/mm3 (142-424); Red Blood Count 3.78 M/mm3 (4.20-5.40); Red Cell Distribution Width 17.4 % (11.5-17.5); White Blood Count 5.3 K/mm3 (4.8-10.8)
[2023-03-22 15:51] LABS: Alanine Aminotransferase 24 U/L (12-78); Albumin Level 3.5 g/dl (3.5-5.0); Albumin/Globulin Ratio 1.1 (1.1-1.8); Alkaline Phosphatase 148 U/L (38-126); Anion Gap 10.2 mEq/L (5-15); Aspartate Amino Transferase 30 U/L (14-36); Blood Urea Nitrogen 13 mg/dl (7-17); Calcium 8.9 mg/dl (8.4-10.2); Carbon Dioxide 29 mmol/L (22.0-30.0); Chloride 107 mmol/L (98-107); Estimated Glomerular Filt Rate 99 ml/min (>60); GFR (African American) 120 ML/MIN (>60); Globulin 3.3 g/dL (1.3-3.2); Glucose 96 mg/dl (74-100); Potassium 4.2 mmoL/L (3.5-5.1); Sodium 142 mmol/L (136-145); Total Protein,Serum 6.8 g/dl (6.3-8.2)
[2023-03-22 15:57] LABS: Bilirubin,Total < 0.1 mg/dl (0.2-1.3)
== END ==
PROVIDERS: PCP Physician Assistant; Visit Provider Physician Assistant
DX: D64.9 Anemia, unspecified (principal); G47.00 Insomnia, unspecified
CPT/HCPCS: 80053; 85025

== ENCOUNTER 2023-04-14 09:07 | Observation (INO) | payer MEDICARE, SELFPAY ==
[2023-04-14] VITALS (22 sets, daily range): BP systolic 111–159; BP diastolic 50–87; PULSE 104–121; RESP 16–43; TEMP 36.9–38; O2SAT 94–100; BMI 25.9; BMI 23.1
--- NOTE | 2023-04-14 | ECG_ITS ---
APPROVED REPORT Exam: Resting ECG HR:119 bpm ECG Measurements Heart Rate 119 AXES WV 150 P 83 QRSd 75 QRS 83 QT 310 T 76 QTc 381 Conclusion SINUS TACHYCARDIA WITH OCCASIONAL VENTRICULAR PREMATURE COMPLEXES POSSIBLE RIGHT VENTRICULAR CONDUCTION DELAY [RSR (QR) IN V1/V2] ABNORMAL RHYTHM ECG UNCONFIRMED REPORT Electronically signed by : Edgard Dasilva MD 04/16/2023 08:41:49
--- NOTE | 2023-04-14 09:10 | XR_ITS ---
FINAL REPORT CLINICAL HISTORY: Shortness of breath, COPD COMPARISON: 11/08/2022 FINDINGS: A portable view of the chest was obtained. Cardiac and mediastinal silhouettes are within normal limits. There are chronic increased interstitial markings. There is a vague right upper lobe opacity which is new. The lungs are otherwise clear. There is no pleural effusion or pneumothorax. IMPRESSION: New right upper lobe vague opacity could be infectious or inflammatory. Recommend 4 week follow-up two-view chest.. Reviewed, Interpreted and Dictated by iSlke Gil MD Transcribed by Lesley Erazo Authenticated and [facility]
--- NOTE | 2023-04-14 09:20 | HMH.EDGENADL ---
Discharge Plan Disposition Patient Disposition: Admitted Chief Complaint: Shortness of Breath/Dyspnea Prescriptions Prescriptions: No Action ipratropium-albuterol 0.5 mg-3 mg(2.5 mg base)/3 mL solution for nebulization 3 ml inhalation QID PRN (Reason: shortness of breath or wheezing) 90 Days Qty: 270 2RF ondansetron 4 mg tablet,disintegrating 4 mg PO Q8H PRN (Reason: nausea and vomiting) Qty: 30 0RF Trelegy Ellipta 100-62.5-25 mcg blister with device 1 ea inhalation DAILY Qty: 60 2RF peg 3350-electrolytes [GaviLyte-G] 236-22.74-6.74 -5.86 gram recon soln 240 ml PO Q10M Qty: 4000 0RF Rx Instructions: until fecal effluent is clear-- follow mailed instructions clonazepam [Klonopin] 1 mg tablet 1 mg PO BID Qty: 60 0RF gabapentin 600 mg tablet 600 mg PO TID Qty: 90 0RF atorvastatin 10 mg tablet 10 mg PO HS aspirin 81 mg tablet,delayed release (DR/EC) 81 mg PO DAILY metoprolol succinate 25 mg tablet extended release 24 hr 25 mg PO DAILY albuterol sulfate 90 mcg/actuation HFA aerosol inhaler See Rx Instructions .ROUTE .COMPLEX Rx Instructions: INHALE 2 PUFFS BY MOUTH EVERY 4 TO 6 HOURS NEEDED FOR SHORTNESS OF BREATH lisinopril 2.5 mg tablet See Rx Instructions .ROUTE .COMPLEX Rx Instructions: TAKE 1 TABLET BY MOUTH DAILY Eliquis 5 mg tablet 5 mg PO BID Referrals Follow up/Referrals: Provider,Referral, [Referring] - See instructions Clinical Impressions Clinical Impression: Acute on chronic respiratory failure with hypoxemia, Acute exacerbation of chronic obstructive pulmonary disease Discharge ED Provider: Lucien Aviles General Adult HPI General Chief complaint: Shortness of Breath/Dyspnea Stated complaint: SOA Time Seen by Provider: 04/14/23 09:08 History of Present Illness HPI narrative: 67-year-old female history of hypertension, hyperlipidemia, COPD on 3 L home oxygen, A-fib currently on Eliquis, chronic GI bleeding following with GI for endoscopy presenting with shortness of breath. Patient states she started feeling acutely short of breath about 2 days ago. It was mild at first, has intensified since. Is now short of breath even at rest. Denies worsening cough, worsening sputum, change in sputum from baseline. Has not needed to increase the amount of oxygen she has been using at home. Denies chest pain, nausea vomiting, fevers or chills, diarrhea or constipation. States that her stool has been dark, as it has been for months. Only other symptom patient notes is aches all over which she has not taken any medications for. Related Data Home Medications Medication Instructions Recorded Confirmed albuterol sulfate 90 mcg/actuation See Rx Instructions .Route 02/17/23 03/22/23 aerosol inhaler .COMPLEX Copd apixaban 5 mg tablet (Eliquis) 5 mg PO BID Blood Thinner 02/17/23 03/22/23 aspirin 81 mg tablet,delayed 81 mg PO DAILY Blood Thinner 02/17/23 03/22/23 release atorvastatin 10 mg tablet 10 mg PO HS HLD 02/17/23 03/22/23 lisinopril 2.5 mg tablet See Rx Instructions .Route 02/17/23 03/22/23 .COMPLEX blood pressure metoprolol succinate 25 mg 25 mg PO DAILY Hypertension 02/17/23 03/22/23 tablet,extended release 24 hr Previous Rx's Medication Instructions Recorded ipratropium 0.5 mg-albuterol 3 mg 3 ml inhalation QID PRN shortness 12/13/22 (2.5 mg base)/3 mL nebulization of breath or wheezing 90 days #270 soln mL ondansetron 4 mg disintegrating 4 mg PO Q8H PRN nausea and 01/20/23 tablet vomiting #30 tabs fluticasone fur. 100 mcg-umeclid 1 ea inhalation DAILY #60 ea 03/16/23 62.5 mcg-vilant 25 mcg inhalat.powder (Trelegy Ellipta) peg 3350-electrolytes 236 240 ml PO Q10M #4,000 mL 03/29/23 gram-22.74 gram-6.74 gram-5.86 gram solution (GaviLyte-G) clonazepam 1 mg tablet (Klonopin) 1 mg PO BID Anxiety #60 tabs 04/04/23 gabapentin 600 mg tablet 600 mg PO TID Pain #90 tabs 04/04/23 Allergies
[2023-04-14 09:26] LABS: Basophils % 0.2 % (0.1-2.0); Eosinophils # 0.2 K/mm3 (0.0-0.4); Eosinophils % 2.9 % (0.1-12.0); Hematocrit 28.3 % (37.0-47.0); Hemoglobin 8.8 g/dL (12.2-16.2); Lymphocytes # 0.9 K/mm3 (0.7-4.5); Mean Corpuscular Hemoglobin 22.7 pg (27.0-31.2); Mean Platelet Volume 7.8 fl (7.4-10.4); Monocytes # 0.4 K/mm3 (0.1-1.0); Monocytes % 4.7 % (1.7-9.3); Neutrophils # 6.1 K/mm3 (1.8-7.8); Neutrophils % 80.2 % (37.0-80.0); Platelet Count 194 K/mm3 (142-424); Red Blood Count 3.87 M/mm3 (4.20-5.40); White Blood Count 7.6 K/mm3 (4.8-10.8)
[2023-04-14 09:38] LABS: Alanine Aminotransferase 25 U/L (12-78); Albumin/Globulin Ratio 1.1 (1.1-1.8); Alkaline Phosphatase 156 U/L (38-126); Anion Gap 11.6 mEq/L (5-15); Aspartate Amino Transferase 37 U/L (14-36); Bilirubin,Total 0.3 mg/dl (0.2-1.3); Blood Urea Nitrogen 11 mg/dl (7-17); Calcium 8.8 mg/dl (8.4-10.2); Carbon Dioxide 30 mmol/L (22.0-30.0); Chloride 102 mmol/L (98-107); Creatinine Clearance Estimated 55 mL/min (50-200); Estimated Glomerular Filt Rate 83 ml/min (>60); GFR (African American) 101 ML/MIN (>60); Globulin 3.6 g/dL (1.3-3.2); Glucose 118 mg/dl (74-100); Potassium 4.6 mmoL/L (3.5-5.1); Sodium 139 mmol/L (136-145); Total Protein,Serum 7.6 g/dl (6.3-8.2)
[2023-04-14 09:39] LABS: Lactic Acid 0.9 mmol/L (0.7-2.1)
[2023-04-14 09:51] LABS: NT Pro Brain Natriuretic Pep. 282 pg/mL (0-125)
[2023-04-14 09:56] LABS: Troponin I < 0.01 ng/ml (0.00-0.034)
[2023-04-14 10:09] LABS: VBG HCO3 26.3 mmol/L (23-30); VBG Oxygen Saturation 96.9 % (50-70); VBG PH 7.24 mmol/L (7.31-7.41); VBG PO2 98.1 mmol/L (28-40); VBG Total CO2 28.2 mmol/L (23-27)
[2023-04-14 10:11] LABS: VBG PCO2 62.4 mmol/L (35-51)
--- NOTE | 2023-04-14 10:11 | PC.NURSE ---
Dr. Aviles notified of critical VBG results.
--- NOTE | 2023-04-14 10:14 | PC.NURSE ---
JOSE RAUL WITH RESPIRATORY NOTIFIED OF BI-PAP ORDER
--- NOTE | 2023-04-14 10:21 | PC.NURSE ---
paged Dr. Hinkle for Dr. Aviles
--- NOTE | 2023-04-14 10:32 | PC.NURSE ---
RT placed pt on bipap at this time settings: 15 over 5, 25 %, rate of 20
--- NOTE | 2023-04-14 10:58 | PC.NURSE ---
notified care management of admission spoke edu
--- NOTE | 2023-04-14 10:58 | EXP.HP ---
History of Present Illness *Admission Date: 04/14/23 *Reason for visit:: Dyspnea, dizzy *History of present illness: Ms. Mcghee is a 67-year-old female with extensive history of hypertension, hyperlipidemia, COPD on chronic oxygen, continues to smoke a pack a day, A-fib on Eliquis. Presented to the ER because of worsening shortness of breath and dizziness. Symptoms of been going on for 2 to 3 days per her report. No fever or sick contacts that she knows of. Symptoms have intensified over the past 24 hours leading to her needing to come to the ER for evaluation. On arrival she was found to be hypercapnic and placed on BiPAP. Improved mentation and oxygenation with BiPAP usage. Denies chest pain, vomiting, fever, chills, diarrhea. States she has been achy all over. Also reports that she has been having dark stools but this has been going on for a few months. Supposed to be having an EGD as an outpatient. Given her respiratory failure and sepsis criteria, ER consulted medicine for admission. On evaluation after arriving to the floor, patient's son-in-law is at bedside. Patient's repeat blood gas doing better, taken off BiPAP and placed on 4 L nasal cannula oxygen. Interactive but fatigued. Lung exam still quite significant for wheeze. [facility] Disclaimer: The information contained in this section may have been updated after the patient was seen, as this information can be updated by other users. Medical History Anxiety Hampton's palsy CAD (coronary artery disease) Chronic pain Chronic respiratory failure with hypoxia COPD exacerbation COPD mixed type Depression Encounter for screening for malignant neoplasm of lung Family history of asthma H/O Hamptno's palsy HLD (hyperlipidemia) HTN (hypertension) Hypertrophic obstructive cardiomyopathy Insomnia Lung nodule seen on imaging study PAD (peripheral artery disease) Presence of arterial stent PTSD (post-traumatic stress disorder) Pulmonary nodule Sinus tachycardia Smoking greater than 30 pack years SOB (shortness of breath) on exertion Vitamin D deficiency Surgical History S/P peripheral artery angioplasty with stent placement Family History Family history of hypertension Social History Smoking Status: Current every day smoker tobacco type: cigarettes packs per day: 1 second hand exposure: No alcohol intake: never substance use type: denies use current occupational status: retired Travel in the last 8 weeks: None household members: children and none housing: house lives independently: No Review of Systems Review of Systems Review of systems (narrative): 14 point review of systems performed, pertinent positives and negatives as per HPI Meds Home Medications and Allergies Home Medications Medication Instructions Recorded Confirmed Type ipratropium 0.5 mg-albuterol 3 mg 3 ml inhalation QID PRN shortness 12/13/22 04/14/23 Rx (2.5 mg base)/3 mL nebulization of breath or wheezing 90 days #270 soln mL ondansetron 4 mg disintegrating 4 mg PO Q8H PRN nausea and 01/20/23 04/14/23 Rx tablet vomiting #30 tabs albuterol sulfate 90 mcg/actuation See Rx Instructions .Route 02/17/23 04/14/23 History aerosol inhaler .COMPLEX Copd apixaban 5 mg tablet (Eliquis) 5 mg PO BID Blood Thinner 02/17/23 04/14/23 History aspirin 81 mg tablet,delayed 81 mg PO DAILY Blood Thinner 02/17/23 04/14/23 History release atorvastatin 10 mg tablet 10 mg PO HS HLD 02/17/23 04/14/23 History lisinopril 2.5 mg tablet See Rx Instructions .Route 02/17/23 04/14/23 History .COMPLEX blood pressure metoprolol succinate 25 mg 25 mg PO DAILY Hypertension 02/17/23 04/14/23 History tablet,extended release 24 hr fluticasone fur. 100 mcg-umeclid 1 ea inhalation DAILY #60 ea 03/16/23
[2023-04-14 11:06] LABS: Coronavirus 19, PCR Not Detected (NotDetected); Influenza A, PCR Not Detected (NotDetected); Influenza B, PCR Not Detected (NotDetected)
--- NOTE | 2023-04-14 11:28 | PC.NURSE ---
I s/w Stella in Care management to check on admission status, she is still looking at the chart and will get a bed assignment
--- NOTE | 2023-04-14 11:53 | PC.NURSE ---
Called report to Angela Avendano RN
--- NOTE | 2023-04-14 12:03 | PC.NURSE ---
pt being transported up for admission
--- NOTE | 2023-04-14 12:05 | PC.NURSE ---
Transported Pt to Med/Surg unit from ED. Pt placed on 3 LPM NC remain stable, Placed on BiPAP upon entering Pt room. Will continue to monitor.
--- NOTE | 2023-04-14 12:06 | PC.NURSE ---
arrived by stretcher from ED
[2023-04-14 13:07] LABS: Troponin I < 0.01 ng/ml (0.00-0.034)
[2023-04-14 14:30] LABS: VBG Base Excess -1.7 mmol/L (-2.4-2.3); VBG HCO3 23.1 mmol/L (23-30); VBG Oxygen Saturation 99.3 % (50-70); VBG PCO2 38.4 mmol/L (35-51); VBG PO2 141.9 mmol/L (28-40); VBG Total CO2 24.3 mmol/L (23-27)
[2023-04-14 16:20] LABS: Troponin I < 0.01 ng/ml (0.00-0.034)
--- NOTE | 2023-04-14 16:33 | PC.NURSE ---
transfer out of stepdown per Dr Baeza [id number]
--- NOTE | 2023-04-14 16:48 | PC.NURSE ---
since arriving to unit pt has appeared to rest in bed peacefully. pt was placed on nc 2 2lpm. during one of the pt rounds, she requests to go to the restroom. pt informed r/t her CLEMENTS and tachypnea, it was requested for pt to use the bsc. pt was initially not agreeable. pt was later agreeable to this. while up to the bedside commode, pt refuses to sit in an upright position. instead she is slumped over with chest flush against her thighs. when asked to sit up, pt states that she cannot bc she cannot breath. it was attempted to be explained to the pt that if she would sit upright, she could possibly be able to breath better. pt refused. leaning over so far as to dislodge the nasal cannula for the oxygen flow meter. pt hr was noted to be in the 120's rr was in the 30's. after voiding pt was placed back in the bed and was placed back on bipap. pt was again able to relax and rest. pt oxygen was increased to 4lpm per dr patten this afternoon.
[2023-04-14 19:29] LABS: Adenovirus,PCR Not Detected (NotDetected); Coronavirus 19, PCR Not Detected (NotDetected); Coronavirus 229E Not Detected (NotDetected); Coronavirus NL63 Not Detected (NotDetected); Coronavirus OC43 Not Detected (NotDetected); Coronovirus HKU1,PCR Not Detected (NotDetected); Human Metapneumovirus Not Detected (NotDetected); Influenza A, PCR Not Detected (NotDetected); Influenza AH1, 2009 Not Detected (NotDetected); Influenza AH1, PCR Not Detected (NotDetected); Influenza AH3,PCR Not Detected (NotDetected); Influenza B, PCR Not Detected (NotDetected); Parainfluenza 1, PCR Not Detected (NotDetected); Parainfluenza 2, PCR Not Detected (NotDetected); Parainfluenza 3, PCR Not Detected (NotDetected); Parainfluenza 4, PCR Not Detected (NotDetected); Respiratory Syncytial Virus Not Detected (NotDetected)
[2023-04-14 22:48] LABS: Rhinovirus/Enterovirus Detected (NotDetected)
[2023-04-15] VITALS (18 sets, daily range): BP systolic 116–157; BP diastolic 52–68; PULSE 90–125; RESP 14–26; TEMP 36.7–36.9; O2SAT 91–99; BMI 23.1
[2023-04-15 07:27] LABS: Basophils % 0.1 % (0.1-2.0); Mean Corpuscular Volume 73.2 fl (81-99); Monocytes # 0.3 K/mm3 (0.1-1.0)
[2023-04-15 07:37] LABS: Alanine Aminotransferase 32 U/L (12-78); Albumin Level 3.8 g/dl (3.5-5.0); Albumin/Globulin Ratio 1.1 (1.1-1.8); Alkaline Phosphatase 133 U/L (38-126); Anion Gap 11.3 mEq/L (5-15); Aspartate Amino Transferase 34 U/L (14-36); Bilirubin,Total 0.3 mg/dl (0.2-1.3); Blood Urea Nitrogen 17 mg/dl (7-17); Calcium 9.4 mg/dl (8.4-10.2); Carbon Dioxide 31 mmol/L (22.0-30.0); Chloride 100 mmol/L (98-107); Creatinine Clearance Estimated 49 mL/min (50-200); Estimated Glomerular Filt Rate 99 ml/min (>60); GFR (African American) 120 ML/MIN (>60); Globulin 3.5 g/dL (1.3-3.2); Glucose 149 mg/dl (74-100); Magnesium 2.2 mg/dl (1.6-2.3); Potassium 4.3 mmoL/L (3.5-5.1); Sodium 138 mmol/L (136-145); Total Protein,Serum 7.3 g/dl (6.3-8.2)
[2023-04-15 07:39] LABS: Hematocrit 24.7 % (37.0-47.0); Lymphocytes # 0.6 K/mm3 (0.7-4.5); Mean Corpuscular HGB Conc 30.7 g/dL (31.8-35.4); Mean Corpuscular Hemoglobin 22.4 pg (27.0-31.2); Mean Platelet Volume 9.3 fl (7.4-10.4); Monocytes % 3.1 % (1.7-9.3); Neutrophils # 7.2 K/mm3 (1.8-7.8); Neutrophils % 88.8 % (37.0-80.0); Platelet Count 211 K/mm3 (142-424); Red Blood Count 3.37 M/mm3 (4.20-5.40); Red Cell Distribution Width 17.2 % (11.5-17.5); White Blood Count 8.1 K/mm3 (4.8-10.8)
[2023-04-15 07:40] LABS: Hemoglobin 7.6 g/dL (12.2-16.2); MANUAL DIFFERENTIAL MANUAL DIFFERENTIAL (MANUAL DIFF)
[2023-04-15 07:55] LABS: Iron 41 ug/dL (37-170)
[2023-04-15 08:04] LABS: Total Iron Binding Capacity 479 ug/dL (265-497)
--- NOTE | 2023-04-15 08:09 | HMH.PHAINT1 ---
Pharmacy Intervention Comments: MEDICATION RECONCILIATION COMPLETED ON PATIENT USING EXTERNAL FILL HISTORY FROM PHARMACY AND LIST FROM PCP OFFICE. -LORI PAPPAS, JARRODD
[2023-04-15 08:12] LABS: Anisocytosis 1+; Hypochromasia 1+; Lymphocytes % 6 % (10-50); Microcytosis 1+; Monocytes % 3 % (2-9); Neutrophils % 91 % (42-76); Ovalocytes 1+; Platelet Estimate Normal; Total Cells Counted 100
[2023-04-15 08:31] LABS: Ferritin 6.46 ng/ml (11.1-264)
[2023-04-15 09:36] LABS: Microscopic, Urine URINE MICROSCOPIC (MICROSCOPIC)
[2023-04-15 09:37] LABS: Appearance,Urine CLEAR (Clear); Bilirubin,Urine Negative (Negative); Blood, Urine Negative (Negative); Color,Urine YELLOW (Yellow); Glucose,Urine (UA) Negative (Negative); Ketones,Urine Negative (Negative); Leukocyte Esterase,Urine TRACE (Negative); Nitrate,Urine Negative (Negative); Protein,Urine Negative (Negative); Urobilinogen,Urine 0.2 EU/dl (0.2)
--- NOTE | 2023-04-15 12:08 | EXP.ACUTE.PN ---
Subjective *Date: 04/15/23 *Time: 12:14 Interval history: Patient anxious overnight. Remains tachycardic. Still significantly wheezy. On 3 L nasal cannula oxygen. No nausea or vomiting. Tolerating good p.o. intake. Fatigued very easily ambulating just from the bed to the bathroom Medical Exam Vital signs and Labs for Last 24 Hours: Vital Signs Temp Pulse Pulse Resp BP Pulse Ox O2 Del Method 04/15/23 11:34 110 H 04/15/23 11:34 112 H 04/15/23 11:34 95 Nasal Cannula 04/15/23 11:18 98.3 F 101 H 18 116/57 L 99 Nasal Cannula 04/15/23 08:00 124 H 91 L Nasal Cannula 04/15/23 09:00 Nasal Cannula 04/15/23 08:00 125 H 04/15/23 09:40 95 Nasal Cannula 04/15/23 08:00 94 L Nasal Cannula 04/15/23 07:30 98.1 F 123 H 22 129/68 94 L Nasal Cannula 04/15/23 07:00 Nasal Cannula 04/15/23 06:25 109 H 04/15/23 06:25 118 H 04/15/23 06:25 95 Nasal Cannula 04/15/23 06:00 108 H 20 151/66 H 95 Nasal Cannula 04/15/23 05:00 Nasal Cannula 04/15/23 04:00 102 H 04/15/23 04:00 98 H 14 135/52 L 94 L Nasal Cannula 04/15/23 03:00 Nasal Cannula 04/15/23 02:00 109 H 26 H 125/60 95 Nasal Cannula 04/15/23 01:00 Nasal Cannula 04/15/23 00:00 106 H 20 120/63 95 Nasal Cannula 04/15/23 00:00 95 Nasal Cannula 04/15/23 00:00 102 H 04/15/23 00:12 105 H 04/15/23 00:12 104 H 04/14/23 23:00 Nasal Cannula 04/14/23 22:00 104 H 25 H 136/59 L 97 Nasal Cannula 04/14/23 20:00 114 H 04/14/23 21:00 Nasal Cannula 04/14/23 20:00 110 H 26 H 97 Nasal Cannula 04/14/23 20:00 98.7 F 114 H 26 H 153/65 H 95 Nasal Cannula 04/14/23 18:49 Nasal Cannula 04/14/23 18:00 98.4 F 117 H 22 139/56 L 97 Nasal Cannula 04/14/23 17:00 115 H 22 132/65 98 Nasal Cannula 04/14/23 16:00 104 H 22 120/52 L 96 Nasal Cannula 04/14/23 16:00 104 H 96 Nasal Cannula 04/14/23 17:00 Nasal Cannula 04/14/23 15:00 109 H 22 139/61 94 L Nasal Cannula 04/14/23 14:00 108 H 22 111/51 L 96 Nasal Cannula 04/14/23 13:00 107 H 24 116/51 L 96 Nasal Cannula 04/14/23 12:30 109 H 24 140/66 98 Nasal Cannula 04/14/23 12:17 108 H 24 131/59 L 98 Nasal Cannula 04/14/23 18:01 111 H 04/14/23 18:01 115 H 04/14/23 18:01 98 Nasal Cannula 04/14/23 16:00 105 H 04/14/23 16:00 99.8 F H 04/14/23 15:00 BiPAP 04/14/23 14:00 99.7 F H 04/14/23 13:00 BiPAP 04/14/23 12:10 108 H 98 BiPAP 04/14/23 12:15 04/14/23 12:15 112 H 04/14/23 12:15 110 H 04/14/23 12:51 98.4 F 109 H 30 H 131/87 99 BiPAP O2 Flow Rate FiO2 04/15/23 11:34 04/15/23 11:34 04/15/23 11:34 3 04/15/23 11:18 2 04/15/23 08:00 4 04/15/23 09:00 4 04/15/23 08:00 04/15/23 09:40 4 04/15/23 08:00 4 04/15/23 07:30 4 04/15/23 07:00 4 04/15/23 06:25 04/15/23 06:25 04/15/23 06:25 4 04/15/23 06:00 4 04/15/23 05:00 4 04/15/23 04:00 04/15/23 04:00 4 04/15/23 03:00 4 04/15/23 02:00 4 04/15/23 01:00 4 04/15/23 00:00 4 04/15/23 00:00 4 04/15/23 00:00 04/15/23 00:12 04/15/23 00:12 04/14/23 23:00 4 04/14/23 22:00 4 04/14/23 20:00 04/14/23 21:00 4 04/14/23 20:00 4 04/14/23 20:00 4 04/14/23 18:49 4 04/14/23 18:00 4 04/14/23 17:00 4 04/14/23 16:00 4 04/14/23 16:00 4 04/14/23 17:00 4 04/14/23 15:00 2 04/14/23 14:00 2 04/14/23 13:00 2 04/14/23 12:30 2 04/14/23 12:17 2 04/14/23 18:01 04/14/23 18:01 04/14/23 18:01 4 04/14/23 16:00 04/14/23 16:00 04/14/23 15:00 04/14/23 14:00 04/14/23 13:00 04/14/23 12:10 25 04/14/23 12:15 25 04/14/23 12:15 04/14/23 12:15 04/14/23 12:51 Intake and Output 04/14/23 04/15/23 04/15/23
--- NOTE | 2023-04-15 14:17 | HMH.PTEV ---
Physical Therapy Evaluation Rehab PT IP Evaluation Start: 04/14/23 18:09 Freq: ONCE Status: Active Protocol: Document 04/15/23 14:04 TORREY (Rec: 04/15/23 14:17 HWMARLENY [id number]) Subjective/History History History Pt is a 67 year old female that presented to [facility] ED with reports of increasing dyspnea and dizziness. Pt reported that her symptoms had been worsening over the previous 2- 3 days. While in ED, pt was found to be hypercapnic and placed on BiPAP. Pt had improved mentation and oxygenation with BiPAP usage. Pt was admitted for IP management of sepsis and respiratory failure: PMH: Anxiety, Hampton's palsy, CAD, Chronic pain, Chronic respiratory failure with hypoxia, COPD exacerbation, COPD mixed type, Depression, Encounter for screening for malignant neoplasm of lung, Family history of asthma, H/O Hampton's palsy, HLD ( hyperlipidemia), HTN ( hypertension), Hypertrophic obstructive cardiomyopathy, Insomnia, Lung nodule seen on imaging study, PAD (peripheral artery disease), Presence of arterial stent, PTSD (post- traumatic stress disorder), Pulmonary nodule, Sinus tachycardia, Smoking greater than 30 pack years, SOB ( shortness of breath) on exertion, Vitamin D deficiency Subjective Subjective Pt presents supine in bed, agreeable to PT evaluation. Pt denies reports of pain at rest. Pt states she has been feeling more anxious lately, notified RN. Pt reports that she lives at home with her daughter in a multi-level home with 2 CHRISTIAN and was mod (I) with B/IADL's
--- NOTE | 2023-04-15 15:30 | PC.NURSE ---
[address] Baeza face to face that pt requests something additional for anxiety to be ordered.
--- NOTE | 2023-04-15 15:34 | PC.NURSE ---
Addendum entered by Angela Parry RN 04/15/23 17:44: Pt was asked several times during the day if she would like to get up to the chair. pt was agreeable to ambulate to the restroom, but declined getting up to the chair to sit. Original Note: Pt has slept off and on this shift. pt was noted to be agitated and tearful this afternoon. when asked what was wrong, pt states that she didnt want to be in the hospital. states that she has had to seen several family members pass away while in the hospital and did not want to be here. pt is noted to become tachycardic and tachypneic with minimal activity. pt lungs contain scattered rhonchi and wheezes throughout. bowel sounds are active in all quads. nad noted.
[2023-04-16] VITALS: BP 136/64; PULSE 108; PULSE 109; RESP 20; TEMP 36.6; O2SAT 94
[2023-04-16 04:00] VITALS: BP 149/67; PULSE 97; PULSE 98; RESP 24; TEMP 36.6; O2SAT 97; BMI 23.0
--- NOTE | 2023-04-16 05:43 | PC.NURSE ---
Patient has had a good night tonight. Has rested and slept off and on through the night. Sill remains on 3L NC which is her baseline. Has been up to the bedside multiple times to void. No other issues noted.
[2023-04-16 06:25] VITALS: PULSE 106; PULSE 109; O2SAT 95
--- NOTE | 2023-04-16 07:36 | EXP.DC.SUM ---
General Admission date:: 04/14/23 Discharge date: 04/16/23 HPI HPI HPI: Ms. Hurst is a 67-year-old female with extensive history of hypertension, hyperlipidemia, COPD on chronic oxygen, continues to smoke a pack a day, A-fib on Eliquis. Presented to the ER because of worsening shortness of breath and dizziness. Symptoms of been going on for 2 to 3 days per her report. No fever or sick contacts that she knows of. Symptoms have intensified over the past 24 hours leading to her needing to come to the ER for evaluation. On arrival she was found to be hypercapnic and placed on BiPAP. Improved mentation and oxygenation with BiPAP usage. Denies chest pain, vomiting, fever, chills, diarrhea. States she has been achy all over. Also reports that she has been having dark stools but this has been going on for a few months. Supposed to be having an EGD as an outpatient. Given her respiratory failure and sepsis criteria, ER consulted medicine for admission. On evaluation after arriving to the floor, patient's son-in-law is at bedside. Patient's repeat blood gas doing better, taken off BiPAP and placed on 4 L nasal cannula oxygen. Interactive but fatigued. Lung exam still quite significant for wheeze. Hospital Course Hospital Course Hospital Course: 67-year-old female with past medical history of COPD, home oxygen dependent at 3L, PAD, CAD, HTN, Anxiety Disorder. Presented to the ER with worsening dizziness, nausea, shortness of breath over the past 2 to 3 days. ER physician concern for COPD exacerbation and sepsis. Discussed with ER physician, requested admission given patient's need for BiPAP, antibiotics, treatment of her respiratory distress. Medicine agreed to admit for further management. Patient was weaned off BiPAP and has been back to her baseline oxygen requirement for over 24 hours. Showing response to treatment for COPD exacerbation. Stable for discharge home. Will establish with home health for PT and OT. Problems addressed during hospitalization as follows: - Sepsis (POA), resolved -Acute on chronic respiratory failure with hypoxia and hypercapnia causing COPD exacerbation. Sepsis criteria met on admission: Tachycardia, tachypnea, presumed infection with respiratory source; has had intermittent tachycardia worse with her anxiety and breathing treatments during remainder of admission. Weaned home oxygen requirement of 3 L. Goal saturations greater 90% for at least 24 hours on home level. Initiated on ceftriaxone with transition to azithromycin for her COPD exacerbation. Started on IV steroids. Transition to oral prednisone. Will complete 5 days of antibiotics total and 5 days of steroids total. Comprehensive respiratory panel showed that she was positive for rhino/enterovirus. Remainder of cultures negative. Stable to discharge home. Anemia: Chronic in nature, hemoglobin 8.8. Iron studies show TIBC of 479, iron saturation 8.5, iron level 41. Initiated on ferrous sulfate 325 mg daily. Hemoglobin 7.7 on day of discharge. No active signs of bleeding. No need for transfusions during admission. Initiate on pantoprazole 40 mg daily. Recommend repeat CBC and CMP in 1 week. Hypertension: Continue home metoprolol 25 mg daily and lisinopril 2.5 mg daily PAD CAD Continue Eliquis, Lipitor 10 mg daily. Discontinue aspirin in the setting of chronic anemia and risk for history of bleeding. Would benefit from continuing Eliquis and holding aspirin as it increases the risk for GI bleed. Chronic Tobacco Use: Spent time discussing benefits of smoking cessation, patient interested in patches. Will prescribe at discharge. Spent 30 minutes in discharge counseling and direct care with patient. Exam Data for Last 24 hours Vital signs and Labs for Last 24 Hours: Temp Pulse Resp BP Pulse Ox O2 Del Method O2 Flow Rate 97.8 F 106 H 24 149/67 H 95 Nasal Cannula 3 04/16/23 04:00 04/16/23 06:25 04/16/23 04:00 04/16/23 0
[2023-04-16 08:00] VITALS: BP 145/73; PULSE 110; PULSE 118; PULSE 131; RESP 22; TEMP 36.7; O2SAT 93
[2023-04-16 08:37] LABS: Basophils % 0.1 % (0.1-2.0); Eosinophils % 0.2 % (0.1-12.0); Hematocrit 24.8 % (37.0-47.0); Hemoglobin 7.7 g/dL (12.2-16.2); Lymphocytes # 1.7 K/mm3 (0.7-4.5); Lymphocytes % 12.9 % (10-50); Mean Corpuscular HGB Conc 30.9 g/dL (31.8-35.4); Mean Corpuscular Hemoglobin 22.3 pg (27.0-31.2); Mean Corpuscular Volume 72.2 fl (81-99); Mean Platelet Volume 10.6 fl (7.4-10.4); Monocytes # 0.7 K/mm3 (0.1-1.0); Monocytes % 4.9 % (1.7-9.3); Neutrophils % 81.9 % (37.0-80.0); Platelet Count 249 K/mm3 (142-424); Red Blood Count 3.44 M/mm3 (4.20-5.40); Red Cell Distribution Width 18.1 % (11.5-17.5); White Blood Count 13.5 K/mm3 (4.8-10.8)
[2023-04-16 08:44] LABS: Anion Gap 10.3 mEq/L (5-15); Blood Urea Nitrogen 26 mg/dl (7-17); Calcium 8.9 mg/dl (8.4-10.2); Carbon Dioxide 33 mmol/L (22.0-30.0); Chloride 101 mmol/L (98-107); Creatinine Clearance Estimated 48 mL/min (50-200); Estimated Glomerular Filt Rate 71 ml/min (>60); GFR (African American) 86 ML/MIN (>60); Glucose 108 mg/dl (74-100); Potassium 4.3 mmoL/L (3.5-5.1); Sodium 140 mmol/L (136-145)
[2023-04-16 11:30] VITALS: PULSE 105; O2SAT 95
--- NOTE | 2023-04-18 17:39 | PC.NURSE ---
notified dr. escalera of pt blood culture results- pt on azithromycin as of 04/17/23. States no further action needed.
--- NOTE | 2023-04-20 16:13 | PC.NURSE ---
blood culture results showing staphylococcus epidermitis, pt admitted to [facility] given azithromycin, rochephin and DC with azithromycin for 5 day course at home. MD Lorenzo notified, no further action at this time.
== END 2023-04-16 11:55 | disposition home health service (06) ==
LOC: ER 11:01 → 2ND 11:42
PROVIDERS: Admitting Provider Internal Medicine Adolescent Medicine; Emergency Provider Emergency Medicine; PCP Physician Assistant; Visit Provider Internal Medicine Adolescent Medicine
DX: J96.21 Acute and chronic respiratory failure with hypoxia (principal); J44.1 Chronic obstructive pulmonary disease with (acute) exacerbation; I10 Essential (primary) hypertension; I25.10 Atherosclerotic heart disease of native coronary artery without angina pectoris; F17.210 Nicotine dependence, cigarettes, uncomplicated; Z99.81 Dependence on supplemental oxygen; Z79.01 Long term (current) use of anticoagulants; I48.91 Unspecified atrial fibrillation; Z79.899 Other long term (current) drug therapy; E55.9 Vitamin D deficiency, unspecified; R06.9 Unspecified abnormalities of breathing
CPT/HCPCS: 36415; 71045; 80048; 80053; 81001; 82728; 82803; 83540; 83550; 83605; 83735; 83880; 84484; 85007; 85025; 87040; 87632; 87635; 87636; 93005; 94640; 94760; 97162; 99291; G0378; J0456; J0696

== ENCOUNTER 2023-04-16 21:48 | Observation (INO) | payer MEDICARE, SELFPAY ==
[2023-04-16 22:02] VITALS: BP 143/60; PULSE 105; RESP 27; TEMP 36.4; O2SAT 96; BMI 22.6
[2023-04-16 22:30] VITALS: BP 133/67; PULSE 101; RESP 37; O2SAT 97
--- NOTE | 2023-04-16 22:33 | XR_ITS ---
PROCEDURE INFORMATION: Exam: XR Chest Exam date and time: 04/16/2023 10:54 PM Age: 67 years old Clinical indication: Shortness of breath; Additional info: SOB TECHNIQUE: Imaging protocol: Radiologic exam of the chest. Views: 2 views. COMPARISON: CR XR CHEST PORTABLE 04/14/2023 10:39 AM FINDINGS: Lungs: Hyperinflation consistent with COPD. No focal pulmonary consolidation. Pleural spaces: No pleural effusion. No pneumothorax. Heart/Mediastinum: No acute findings or cardiomegaly. Bones/joints: No acute findings. IMPRESSION: 1. No acute cardiopulmonary findings. 2. COPD.
--- NOTE | 2023-04-16 22:41 | ECG_ITS ---
APPROVED REPORT Exam: Resting ECG HR:97 bpm ECG Measurements Heart Rate 97 AXES SD 123 P 73 QRSd 79 QRS 76 QT 345 T 72 QTc 400 Conclusion SINUS RHYTHM WITH OCCASIONAL VENTRICULAR PREMATURE COMPLEXES POSSIBLE RIGHT VENTRICULAR CONDUCTION DELAY [RSR (QR) IN V1/V2] BORDERLINE ECG UNCONFIRMED REPORT Electronically signed by : Edgard Dasilva MD 04/18/2023 20:14:40
[2023-04-16 22:47] LABS: Basophils % 0.1 % (0.1-2.0); Eosinophils % 0.2 % (0.1-12.0); Hematocrit 27.9 % (37.0-47.0); Lymphocytes # 1.2 K/mm3 (0.7-4.5); Lymphocytes % 9.8 % (10-50); Mean Corpuscular HGB Conc 30.8 g/dL (31.8-35.4); Mean Corpuscular Hemoglobin 22.7 pg (27.0-31.2); Mean Corpuscular Volume 73.7 fl (81-99); Mean Platelet Volume 10.2 fl (7.4-10.4); Monocytes # 0.6 K/mm3 (0.1-1.0); Monocytes % 4.9 % (1.7-9.3); Neutrophils # 10.7 K/mm3 (1.8-7.8); Neutrophils % 84.9 % (37.0-80.0); Platelet Count 244 K/mm3 (142-424); Red Blood Count 3.79 M/mm3 (4.20-5.40); Red Cell Distribution Width 18.1 % (11.5-17.5); White Blood Count 12.6 K/mm3 (4.8-10.8)
[2023-04-16 22:48] LABS: Chloride 103 mmol/L (98-107)
[2023-04-16 22:49] LABS: Potassium 4.5 mmoL/L (3.5-5.1); Sodium 142 mmol/L (136-145)
[2023-04-16 22:51] LABS: Alanine Aminotransferase 35 U/L (12-78); Aspartate Amino Transferase 37 U/L (14-36); Bilirubin,Total 0.2 mg/dl (0.2-1.3); Blood Urea Nitrogen 22 mg/dl (7-17); Creatinine Clearance Estimated 48 mL/min (50-200); Estimated Glomerular Filt Rate 83 ml/min (>60); GFR (African American) 101 ML/MIN (>60)
[2023-04-16 22:52] LABS: Albumin/Globulin Ratio 1.1 (1.1-1.8); Alkaline Phosphatase 138 U/L (38-126); Anion Gap 6.5 mEq/L (5-15); Calcium 8.9 mg/dl (8.4-10.2); Carbon Dioxide 37 mmol/L (22.0-30.0); Globulin 3.7 g/dL (1.3-3.2); Glucose 130 mg/dl (74-100); Magnesium 2.6 mg/dl (1.6-2.3); Total Protein,Serum 7.7 g/dl (6.3-8.2)
[2023-04-16 22:58] LABS: Hemoglobin 8.6 g/dL (12.2-16.2)
[2023-04-16 23:05] LABS: Troponin I < 0.01 ng/ml (0.00-0.034)
--- NOTE | 2023-04-16 23:17 | PC.NURSE ---
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
[2023-04-16 23:30] VITALS: BP 158/79; PULSE 92; RESP 35; O2SAT 100
--- NOTE | 2023-04-16 23:34 | PC.NURSE ---
Admitting notified of admission
--- NOTE | 2023-04-16 23:50 | HMH.EDGENADL ---
Discharge Plan Disposition Patient Disposition: Admitted Condition: Fair Clinical Impressions Clinical Impression: Positive blood culture, SOB (shortness of breath), COPD with exacerbation Discharge ED Provider: Demetri Almazan Adult HPI General Chief complaint: Recheck/Abnormal Lab/Rx Stated complaint: Was told to come to ED RE: blood work Time Seen by Provider: 04/16/23 22:06 Mode of Arrival: Ambulatory Source of Information: Patient and Relative Limitations: No Limitations Description of Symptoms (Recalled from ER Triage Doc. by RN): pts daughter reports she was d/c from an inpt stay this am at 1145 from this hospital. pt states she tested (+) rhinovirus on 04/14. pts daughter states they came in because they received a phone call from stating the pt had bacteria in her blood. pt c/o SOA and a nonproductive cough. pt has a hx of COPD and is on 4L NC baseline at home. History of Present Illness HPI narrative: 67-year-old female recent discharge on yesterday for COPD exacerbation and possible sepsis, HTN, HLD, atrial fibrillation on Eliquis, CAD, anxiety, presents today for evaluation concerning positive blood cultures. Patient was called by her physician today noting that her blood cultures were positive and was told to come back to the ED for management. Patient has also had increased work of breathing since she has been discharged. Has not been tolerating oral intake appropriately per daughter at bedside. Has not had any fevers, chills, significant cough, abdominal pain, chest pain. She does wear 4 L of oxygen at baseline. Related Data Home Medications Medication Instructions Recorded Confirmed albuterol sulfate 90 mcg/actuation 2 puff inhalation Q4HP PRN 02/17/23 04/16/23 aerosol inhaler Shortness Of Breath apixaban 5 mg tablet (Eliquis) 5 mg PO BID Blood Thinner/AFIB 02/17/23 04/16/23 atorvastatin 10 mg tablet 10 mg PO HS Cholesterol 02/17/23 04/16/23 lisinopril 2.5 mg tablet 2.5 mg PO DAILY High Blood Pressure 02/17/23 04/16/23 metoprolol succinate 25 mg 25 mg PO DAILY High Blood Pressure 02/17/23 04/16/23 tablet,extended release 24 hr Previous Rx's Medication Instructions Recorded ipratropium 0.5 mg-albuterol 3 mg 3 ml inhalation QID PRN shortness 12/13/22 (2.5 mg base)/3 mL nebulization of breath or wheezing 90 days #270 soln mL fluticasone fur. 100 mcg-umeclid 1 ea inhalation DAILY #60 ea 03/16/23 62.5 mcg-vilant 25 mcg inhalat.powder (Trelegy Ellipta) clonazepam 1 mg tablet (Klonopin) 1 mg PO BID Anxiety #60 tabs 04/04/23 gabapentin 600 mg tablet 600 mg PO TID Pain #90 tabs 04/04/23 azithromycin 500 mg tablet 500 mg PO DAILY 3 days #3 tabs 04/16/23 ferrous sulfate 325 mg (65 mg 325 mg PO DAILY 30 days #30 tabs 04/16/23 iron) tablet nicotine 21 mg/24 hr daily 21 mg transdermal DAILY 28 days 04/16/23 transdermal patch #28 ea pantoprazole 40 mg tablet,delayed 40 mg PO DAILY 30 days #30 tabs 04/16/23 release prednisone 20 mg tablet 40 mg PO DAILY 3 days #6 tabs 04/16/23 Allergies Allergy/AdvReac Type Severity Reaction Status Date / Time levofloxacin Allergy Intermediate blisters Verified 04/16/23 22:11 in mouth, diarrhea PFSH PFSH Disclaimer: The information contained in this section may have been updated after the patient was seen, as this information can be updated by other users. Medical History Anxiety Hampton's palsy CAD (coronary artery disease) Chronic pain Chronic respiratory failure with hypoxia COPD exacerbation COPD mixed type Depression Encounter for screening for malignant neoplasm of lung Family history of asthma H/O Hampton's palsy HLD (hyperlipidemia) HTN (hypertension) Hypertrophic obstructive cardiomyopathy Insomnia Lung nodule seen on imaging study PAD (peripheral artery disease) Presence of arterial stent PTSD (post-traumatic stress disorder) Pulmonary nodule Sinus tachycardia Smokin
[2023-04-17] VITALS (12 sets, daily range): BP systolic 136–178; BP diastolic 64–79; PULSE 78–117; RESP 18–29; TEMP 36.4–37.2; O2SAT 91–100; BMI 22.5
--- NOTE | 2023-04-17 00:17 | EXP.HP ---
History of Present Illness *Admission Date: 04/16/23 *Reason for visit:: COPD exacerbation *History of present illness: 67 year old female presented to the ED for c/o not feeling better since being discharged from the hospital today. Her daughter is at bedside and reports pt has been dizzy and feeling weak. The PCP called and informed pt that one blood culture had come back positive for gram positive cocci. The pt was discharged earlier in the day for COPD exacerbation. She did test positive for the rhino/enterovirus during admission. Pt fearful of leaving [facility] and requested admission. The ED physician started the pt on vancomycin IV. The ED physician consulted the hospitalist team for admission. I admitted the pt to the medical surgical floor. She will continue her home medications of oral azithromycin and prednisone. She is wearing her baseline oxygen of 4L. PMHX of PAD, CAD, HTN, Anxiety Disorder, and tobacco abuse. [facility] Disclaimer: The information contained in this section may have been updated after the patient was seen, as this information can be updated by other users. Medical History Anxiety Hampton's palsy CAD (coronary artery disease) Chronic pain Chronic respiratory failure with hypoxia COPD exacerbation COPD mixed type Depression Encounter for screening for malignant neoplasm of lung Family history of asthma H/O Hampton's palsy HLD (hyperlipidemia) HTN (hypertension) Hypertrophic obstructive cardiomyopathy Insomnia Lung nodule seen on imaging study PAD (peripheral artery disease) Presence of arterial stent PTSD (post-traumatic stress disorder) Pulmonary nodule Sinus tachycardia Smoking greater than 30 pack years SOB (shortness of breath) on exertion Vitamin D deficiency Surgical History S/P peripheral artery angioplasty with stent placement Family History Family history of hypertension Social History (Updated 04/17/23 @ 01:36 by Xochitl Plaza RN) Smoking Status: Current every day smoker tobacco type: cigarettes packs per day: 1 second hand exposure: No alcohol intake: never substance use type: denies use current occupational status: retired Travel in the last 8 weeks: None household members: children and none housing: house lives independently: No Review of Systems *Cardiovascular Cardiovascular: Reports system reviewed and no additional complaints, except as documented and Reports dyspnea *Respiratory Respiratory: Reports dyspnea and Reports wheezing *Gastrointestinal Gastrointestinal: Reports system reviewed and no additional complaints, except as documented *Genitourinary Genitourinary: Reports system reviewed and no additional complaints, except as documented *Musculoskeletal Musculoskeletal: Reports system reviewed and no additional complaints, except as documented *Neurologic Neurologic: Reports system reviewed and no additional complaints, except as documented Allergic/Immunologic Allergic/Immunologic: Reports wheezing Meds Home Medications and Allergies Home Medications Medication Instructions Recorded Confirmed Type ipratropium 0.5 mg-albuterol 3 mg 3 ml inhalation QID PRN shortness 12/13/22 04/17/23 Rx (2.5 mg base)/3 mL nebulization of breath or wheezing 90 days #270 soln mL albuterol sulfate 90 mcg/actuation 2 puff inhalation Q4HP PRN 02/17/23 04/17/23 History aerosol inhaler Shortness Of Breath apixaban 5 mg tablet (Eliquis) 5 mg PO BID Blood Thinner/AFIB 02/17/23 04/17/23 History atorvastatin 10 mg tablet 10 mg PO HS Cholesterol 02/17/23 04/17/23 History lisinopril 2.5 mg tablet 2.5 mg PO DAILY High Blood Pressure 02/17/23 04/17/23 History metoprolol succinate 25 mg 25 mg PO DAILY High Blood Pressure 02/17/23 04/17/23 History tablet,extended release 24 hr fluticasone fur. 100 mcg-umeclid 1 ea inhalation
--- NOTE | 2023-04-17 00:30 | PC.NURSE ---
0020 RECEIVED PHONE REPORT FROM ANTONY RN/ED NURSE. PATIENT WAS JUST HERE AND D/C'ED YESTERDAY AM ON THE . DIAGNOSIS RHINOVIRUS. NOW BEING READMITTED FOR ?BACTEREMIA IN BLOOD CULTURE THOUGHT TO BE CONTAMINATED. MAY TRAVEL BY W/C.
--- NOTE | 2023-04-17 00:30 | PC.NURSE ---
report called to Tamika KING. I called respiratory to see if they have received the VBG. awaiting call back
[2023-04-17 00:42] LABS: VBG Base Excess 0.3 mmol/L (-2.4-2.3); VBG HCO3 26.9 mmol/L (23-30); VBG Oxygen Saturation 94.3 % (50-70); VBG PH 7.29 mmol/L (7.31-7.41); VBG PO2 79.6 mmol/L (28-40); VBG Total CO2 28.6 mmol/L (23-27)
--- NOTE | 2023-04-17 00:45 | PC.NURSE ---
Pt arrived to the floor via stretcher @ 2358
[2023-04-17 00:56] LABS: VBG PCO2 56.9 mmol/L (35-51)
--- NOTE | 2023-04-17 00:56 | PC.NURSE ---
0045 PATIENT ARRIVED TO THE FLOOR VIA STRETCHER. 02 AT 4LNC. DENIES PAIN BUT C/O SOA.
--- NOTE | 2023-04-17 02:16 | PC.NURSE ---
PATIENT SITTING UP AT SIDE OF BED. HAD PULLED IV OUT. C/O NAUSEA. ABBY PAYNE NOTIFIED AND TO PLACE ORDER FOR ZOFRAN.
[2023-04-17 02:20] LABS: Troponin I < 0.01 ng/ml (0.00-0.034)
--- NOTE | 2023-04-17 05:04 | PC.NURSE ---
MEDICATED WITH ZOFRAN 4 MG IVP FOR C/O NAUSEA AT 0214 AND MED WAS EFFECTIVE. RESTING IN BED AT THIS TIME. NO COMPLAINTS. 02 4LNC CONTINUOS USE.
[2023-04-17 06:14] LABS: Basophils % 0.1 % (0.1-2.0); Eosinophils % 0.1 % (0.1-12.0); Hematocrit 25.5 % (37.0-47.0); Hemoglobin 7.8 g/dL (12.2-16.2); Lymphocytes # 0.5 K/mm3 (0.7-4.5); Lymphocytes % 4.1 % (10-50); Mean Corpuscular HGB Conc 30.4 g/dL (31.8-35.4); Mean Corpuscular Hemoglobin 22.5 pg (27.0-31.2); Mean Corpuscular Volume 74.1 fl (81-99); Mean Platelet Volume 9.8 fl (7.4-10.4); Monocytes # 0.1 K/mm3 (0.1-1.0); Monocytes % 1.3 % (1.7-9.3); Neutrophils # 10.1 K/mm3 (1.8-7.8); Neutrophils % 94.4 % (37.0-80.0); Platelet Count 211 K/mm3 (142-424); Red Blood Count 3.45 M/mm3 (4.20-5.40); Red Cell Distribution Width 17.9 % (11.5-17.5); White Blood Count 10.7 K/mm3 (4.8-10.8)
[2023-04-17 06:19] LABS: MANUAL DIFFERENTIAL MANUAL DIFFERENTIAL (MANUAL DIFF)
[2023-04-17 06:28] LABS: Blood Urea Nitrogen 18 mg/dl (7-17); Calcium 8.4 mg/dl (8.4-10.2); Carbon Dioxide 39 mmol/L (22.0-30.0); Chloride 102 mmol/L (98-107); Creatinine Clearance Estimated 47 mL/min (50-200); Estimated Glomerular Filt Rate 99 ml/min (>60); GFR (African American) 120 ML/MIN (>60); Glucose 150 mg/dl (74-100); Sodium 141 mmol/L (136-145)
[2023-04-17 06:40] LABS: Anisocytosis 1+; Hypochromasia 2+; Lymphocytes % 3 % (10-50); Microcytosis 1+; Monocytes % 1 % (2-9); Neutrophils % 96 % (42-76); Ovalocytes 1+; Platelet Estimate Normal; Total Cells Counted 100
[2023-04-17 06:44] LABS: Troponin I < 0.01 ng/ml (0.00-0.034)
--- NOTE | 2023-04-17 07:26 | HMH.PHAINT1 ---
Pharmacy Intervention Comments: Med reconciliation completed using discharge summary from 04/16
--- NOTE | 2023-04-17 08:26 | PC.NURSE ---
While getting report nursing home care consultant called RN to patient room. Patient found laying down on floor. Patient reports that she was dreaming about goats and fell out of bed. Patient reports no pain and RN could not see and bruising or hematomas on body. informed and came to patient room. Patient was assisted by myself, Damaris and CHRISTINE Teague back to bed. Patient was noncompliant with getting back to bed and RN and tech stayed with patient until patient agreed to get back in bed. Vital signs obtained on patient while patient in floor Blood pressure 147/78, heart rate 117, 95% on 4L NC, respirations 18, temperature 98.1. Patient currently back in bed with bed alarm on. Red star placed on outside of door.
--- NOTE | 2023-04-17 10:15 | PC.NURSE ---
Patient complained of head pain. RN noted that patient not has about a golf ball size knot on left side of patient's forehead upon reevaluation post fall. Patient complains that head is tender.
--- NOTE | 2023-04-17 10:56 | HMH.PTEV ---
Physical Therapy Evaluation Rehab PT IP Evaluation Start: 04/17/23 08:04 Freq: ONCE Status: Active Protocol: Document 04/17/23 10:43 PHOREBECCA (Rec: 04/17/23 10:56 PHORNE [id number]) Subjective/History History History [address] [facility] with bacteremia. Recently adm to hosp for viral PNA. PMH of PAD , CAD, HTN, anxiety. She reports she lives with family, 1-2 steps to enter the home, and she is generally independent with all mobility aithout AD. Subjective Subjective Pt states, I'm going outside to smoke a cigarette and relax and there ain't nothing you can do about it. She reluctantly agrees to mobility assesment. Increased SOA with exertion, but likely a component of anxiety involved. New diagnosis of cancer in past 12 No months? Rehab PT IP Eval Objective Appearance Patient Behavior Appropriate Patient Orientation Person,Place,Time Difficulty following instructions none Speech Pattern Clear Ambulation Patient Able to Ambulate Yes Ambulation Observation IP General Gait Pattern Observation Wide Based Gait Ambulation Distance (feet) 20 Ambulation Assistive Device None Ambulation Ability Supervision/Stand by Balance Ability to Arise Able, uses arms to help Sitting Balance Steady, safe Standing Balance Steady, wide stance Dynamic Sitting Balance Ability Good Dynamic Standing Balance Ability Good Transfers Bed Transfer Ability Supervision/Stand by Chair Transfer Ability Supervision/Stand by Sit to Stand Bed Transfer Ability Supervision/Stand by Sit to Stand Chair Transfer Ability Supervision/Stand by ROM All Extremities PT ROM Status WFL MMT All Extremities PT MMT WFL Rehab PT IP prob,goals,plan Problems Date of Evaluation: 04/17/23 Discharge Plan PT Discharge Plan Pt is appropriate to return home once medicaly stable for d/c. No current inpatient therapy needs. Recommend home health therapy after d/c. Eval Complexity Eval Charge Codes 51026 - High Complexity PHYSICIAN CERTIFICATION: I certify the spec
--- NOTE | 2023-04-17 12:33 | HMH.OTEV ---
OT Inpatient Evaluation Rehab OT IP Evaluation Start: 04/17/23 08:04 Freq: ONCE Status: Active Protocol: Document 04/17/23 12:27 MIRNA (Rec: 04/17/23 12:33 GILTHOM [id number]) Rehab OT IP Assessment Subjective History 67 year old female presented to the ED for c/o not feeling better since being discharged from the hospital today. Her daughter is at bedside and reports pt has been dizzy and feeling weak. The PCP called and informed pt that one blood culture had come back positive for gram positive cocci. The pt was discharged earlier in the day for COPD exacerbation. She did test positive for the rhino/ enterovirus during admission. Pt fearful of leaving [facility] and requested admission. The ED physician started the pt on vancomycin IV. The ED physician consulted the hospitalist team for admission . I admitted the pt to the medical surgical floor. She will continue her home medications of oral azithromycin and prednisone. She is wearing her baseline oxygen of 4L. PMHX of PAD, CAD , HTN, Anxiety Disorder, and tobacco abuse. I can get up. Patient lives with dtr and extended family. Patient is home alone during the day. Patient was independently with fx'l mobility and ADLs as needed. Subjective Instructed Patient on proper hand and foot placement to complete bed mobility->sit @ EoB->stand->ambulate within the room with SUP. Patient was impulsive during transition with demanding to go smoke outside. Patient is currently on 2L of 02 with 02 dropping to 87% duri
--- NOTE | 2023-04-17 12:44 | SW/DCPLANNER ---
Addendum entered by Nallely Lopes 04/18/23 09:58: [facility]. Addendum entered by Nallely Lopes 04/17/23 13:39: Tigist w/ [facility] stated they are not in network w/ patient's insurance. Daughter did give confirmation for information to be faxed to [facility]: I will follow up w/ Cathy once information is reviewed. I have also asked Financial Counselor (Lacey) to call and speak w/ patient's daughter regarding Medicaid. Original Note: I spoke w/ patient regarding plans once medically stable for discharge. PT/OT evaluated patient and recommended home health services. Patient requested that I speak with her family that she resides w/ a this time. Patient's son in law is agreeable to home health services and prefers that patient use [facility] at time of discharge. [facility] information[facility]order [facility]. I will follow up once information/order is reviewed.
--- NOTE | 2023-04-17 12:55 | EXP.PHA.CONS ---
Pharmacy Consult Date: 04/17/23 Time: 12:55 Referring provider: DR. KRUEGER Reason for Consult:: VANCOMYCIN DOSING Allergies Allergy/AdvReac Type Severity Reaction Status Date / Time levofloxacin Allergy Intermediate blisters Verified 04/16/23 22:11 in mouth, diarrhea Home Medications Medication Instructions Recorded Confirmed Type ipratropium 0.5 mg-albuterol 3 mg 3 ml inhalation QID PRN shortness 12/13/22 04/17/23 Rx (2.5 mg base)/3 mL nebulization of breath or wheezing 90 days #270 soln mL albuterol sulfate 90 mcg/actuation 2 puff inhalation Q4HP PRN 02/17/23 04/17/23 History aerosol inhaler Shortness Of Breath apixaban 5 mg tablet (Eliquis) 5 mg PO BID Blood Thinner/AFIB 02/17/23 04/17/23 History atorvastatin 10 mg tablet 10 mg PO HS Cholesterol 02/17/23 04/17/23 History lisinopril 2.5 mg tablet 2.5 mg PO DAILY High Blood Pressure 02/17/23 04/17/23 History metoprolol succinate 25 mg 25 mg PO DAILY High Blood Pressure 02/17/23 04/17/23 History tablet,extended release 24 hr fluticasone fur. 100 mcg-umeclid 1 ea inhalation DAILY #60 ea 03/16/23 04/17/23 Rx 62.5 mcg-vilant 25 mcg inhalat.powder (Trelegy Ellipta) clonazepam 1 mg tablet (Klonopin) 1 mg PO BID Anxiety #60 tabs 04/04/23 04/17/23 Rx gabapentin 600 mg tablet 600 mg PO TID Pain #90 tabs 04/04/23 04/17/23 Rx azithromycin 500 mg tablet 500 mg PO DAILY 3 days #3 tabs 04/16/23 04/17/23 Rx ferrous sulfate 325 mg (65 mg 325 mg PO DAILY 30 days #30 tabs 04/16/23 04/17/23 Rx iron) tablet nicotine 21 mg/24 hr daily 21 mg transdermal DAILY 28 days 04/16/23 04/17/23 Rx transdermal patch #28 ea pantoprazole 40 mg tablet,delayed 40 mg PO DAILY 30 days #30 tabs 04/16/23 04/17/23 Rx release prednisone 20 mg tablet 40 mg PO DAILY 3 days #6 tabs 04/16/23 04/17/23 Rx New Prescriptions to Start Prescriptions: Height: 1.57 m Weight: 55.61 kg Laboratory Results:: Laboratory Results - last 24 hr 04/16/23 22:09: WBC 12.6 H, RBC 3.79 L, Hgb 8.6 L D, Hct 27.9 L, MCV 73.7 L, MCH 22.7 L, MCHC 30.8 L, RDW 18.1 H, Plt Count 244, MPV 10.2, Neut % (Auto) 84.9 H, Lymph % (Auto) 9.8 L, Wolfe % (Auto) 4.9, Eos % (Auto) 0.2, Baso % (Auto) 0.1, Neut # (Auto) 10.7 H, Lymph # (Auto) 1.2, Wol[place] # (Auto) 0.6, Eos # (Auto) 0.0, Baso # (Auto) 0.0, Sodium 142, Potassium 4.5, Chloride 103, Carbon Dioxide 37 H, Anion Gap 6.5, BUN 22 H, Creatinine 0.70, Estimated Creat Clear 48, Estimated GFR 83, Est GFR ( Amer) 101, Glucose 130 H D, Calcium 8.9, Magnesium 2.6 H D, Total Bilirubin 0.2, AST 37 H, ALT 35, Alkaline Phosphatase 138 H, Troponin I < 0.01, Total Protein 7.7, Albumin 4.0, Globulin 3.7 H, Albumin/Globulin Ratio 1.1 04/16/23 22:39: VBG pH 7.29 L, VBG pCO2 56.9 H, VBG pO2 79.6 H, VBG HCO3 26.9, VBG Total CO2 28.6 H, VBG O2 Saturation 94.3 H, VBG Base Excess 0.3 04/17/23 01:45: Troponin I < 0.01 04/17/23 05:45: WBC 10.7, RBC 3.45 L, Hgb 7.8 L, Hct 25.5 L, MCV 74.1 L, MCH 22.5 L, MCHC 30.4 L, RDW 17.9 H, Plt Count 211, MPV 9.8, Neut % (Auto) 94.4 H, Lymph % (Auto) 4.1 L, Wolfe % (Auto) 1.3 L, Eos % (Auto) 0.1, Baso % (Auto) 0.1, Neut # (Auto) 10.1 H, Lymph # (Auto) 0.5 L, Wolfe # (Auto) 0.1, Eos # (Auto) 0.0, Baso # (Auto) 0.0, Total Counted 100, Neutrophils % (Manual) 96 H, Lymphocytes % (Manual) 3 L, Monocytes % (Manual) 1 L, Platelet Estimate Normal, Hypochromasia 2+, Anisocytosis 1+, Microcytosis 1+, Ovalocytes 1+, Sodium 141, Potassium 6.0 H D, Chloride 102, Carbon Dioxide 39 H, Anion Gap 6.0, BUN 18 H, Creatinine 0.60, Estimated Creat Clear 47, Estimated GFR 99, Est GFR ( Amer) 120, Glucose 150 H, Calcium 8.4, Troponin I < 0.01 Medical History: Medical History (Updated 04/17/23 @ 00:02 by Demetri Almazan DO) Anxiety Hampton's palsy CAD (coronary artery disease) Chronic pain Chronic respiratory failure with hypoxia COPD exacerbation COPD mixed type Depression Encounter for screening for malignant neoplasm of lung Family history of asthma H/O Hampton's palsy HL
--- NOTE | 2023-04-17 13:05 | EXP.DC.SUM ---
General Admission date:: 04/16/23 Discharge date: 04/17/23 HPI HPI HPI: 67 year old female presented to the ED for c/o not feeling better since being discharged from the hospital today. Her daughter is at bedside and reports pt has been dizzy and feeling weak. The PCP called and informed pt that one blood culture had come back positive for gram positive cocci. The pt was discharged earlier in the day for COPD exacerbation. She did test positive for the rhino/enterovirus during admission. Pt fearful of leaving [facility] and requested admission. The ED physician started the pt on vancomycin IV. The ED physician consulted the hospitalist team for admission. I admitted the pt to the medical surgical floor. She will continue her home medications of oral azithromycin and prednisone. She is wearing her baseline oxygen of 4L. PMHX of PAD, CAD, HTN, Anxiety Disorder, and tobacco abuse. Hospital Course Hospital Course Hospital Course: 67-year-old female with past medical history of COPD, home oxygen dependent at 3L, PAD, CAD, HTN, Anxiety Disorder. She was brought back to the hospital due to single blood culture positive for gram-positive cocci at over 48 hours. Monitored overnight. Stable for discharge home. Believe blood culture is a contaminant/commensal organism and not clinically significant. In stable condition similar to when she was discharged just yesterday. Resume antibiotics and steroids prescribed at previous discharge. Problems addressed as follows: -Positive blood culture -chronic respiratory failure with hypoxia and hypercapnia causing COPD exacerbation. On previous admission, met sepsis criteria on arrival. Symptoms improved. Was discharged home. Blood culture came back positive at over 48 hours. Returned to hospital and admitted overnight. She remained stable on her baseline oxygen. Resume antibiotics from previous discharge. No indication for staph specific treatment. 3 remaining blood culture bottles negative from previous admission. Had tested positive for rhino/enterovirus on presentation last time. Anemia: Chronic in nature, hemoglobin 8.8. Iron studies show TIBC of 479, iron saturation 8.5, iron level 41 last admission. Continue ferrous sulfate 325 mg daily. Hemoglobin 7.8 on day of discharge. No active signs of bleeding. No need for transfusions during admission. Continue pantoprazole 40 mg daily. Recommend repeat CBC and CMP in 1 week. Hypertension: Continue home metoprolol 25 mg daily and lisinopril 2.5 mg daily PAD CAD Continue Eliquis, Lipitor 10 mg daily. Discontinue aspirin in the setting of chronic anemia and risk for history of bleeding. Would benefit from continuing Eliquis and holding aspirin as it increases the risk for GI bleed. Chronic Tobacco Use: Spent time discussing benefits of smoking cessation, patient interested in patches. Will prescribe at discharge. Exam Data for Last 24 hours Vital signs and Labs for Last 24 Hours: Temp Pulse Resp BP Pulse Ox O2 Del Method O2 Flow Rate 98.1 F 78 18 147/78 H 98 Nasal Cannula 2 04/17/23 08:00 04/17/23 11:34 04/17/23 08:00 04/17/23 08:00 04/17/23 08:02 04/17/23 08:02 04/17/23 08:02 Laboratory Results - last 24 hr 04/16/23 22:09: WBC 12.6 H, RBC 3.79 L, Hgb 8.6 L D, Hct 27.9 L, MCV 73.7 L, MCH 22.7 L, MCHC 30.8 L, RDW 18.1 H, Plt Count 244, MPV 10.2, Neut % (Auto) 84.9 H, Lymph % (Auto) 9.8 L, [place] % (Auto) 4.9, Eos % (Auto) 0.2, Baso % (Auto) 0.1, Neut # (Auto) 10.7 H, Lymph # (Auto) 1.2, [place] # (Auto) 0.6, Eos # (Auto) 0.0, Baso # (Auto) 0.0, Sodium 142, Potassium 4.5, Chloride 103, Carbon Dioxide 37 H, Anion Gap 6.5, BUN 22 H, Creatinine 0.70, Estimated Creat Clear 48, Estimated GFR 83, Est GFR ( Amer) 101, Glucose 130 H D, Calcium 8.9, Magnesium 2.6 H D, Total Bilirubin 0.2, AST 37 H, ALT 35, Alkaline Phosphatase 138 H, Troponin I < 0.01, Total Protein 7.7, Albumin 4.0, Globulin 3.7 H, Albumin/Globulin Ratio 1.1 04/16/23 22:39: V
--- NOTE | 2023-04-18 13:08 | CARE MANAGER ---
Contacted patient's daughter related to hospital discharge. She states patient fell again last night. She put a call into PA at MD office. Reached out to [facility] to ask them to contact her so they know when they are coming. Deny any other questions or concerns. CHRISTINE Perla
== END 2023-04-17 17:33 | disposition home health service (06) ==
LOC: ER 22:19 → 2ND 23:50
PROVIDERS: Nurse Practitioner Critical Care Medicine; Admitting Provider Internal Medicine Adolescent Medicine; Emergency Provider Emergency Medicine; PCP Physician Assistant; Visit Provider Internal Medicine Adolescent Medicine
DX: R78.81 Bacteremia (principal); D64.9 Anemia, unspecified; J96.21 Acute and chronic respiratory failure with hypoxia; I25.10 Atherosclerotic heart disease of native coronary artery without angina pectoris; I73.9 Peripheral vascular disease, unspecified; I10 Essential (primary) hypertension; E78.2 Mixed hyperlipidemia; F17.210 Nicotine dependence, cigarettes, uncomplicated; E55.9 Vitamin D deficiency, unspecified; Z99.81 Dependence on supplemental oxygen; Z79.899 Other long term (current) drug therapy; I48.91 Unspecified atrial fibrillation; Z79.01 Long term (current) use of anticoagulants; R06.9 Unspecified abnormalities of breathing; J44.1 Chronic obstructive pulmonary disease with (acute) exacerbation
CPT/HCPCS: 36415; 71046; 80048; 80053; 82803; 83735; 84484; 85007; 85025; 93005; 94640; 94761; 97163; 97165; 97530; 99285; G0378; J2405; J3370; J3475

== ENCOUNTER 2023-04-25 15:25 | Observation (INO) | payer MEDICARE, SELFPAY ==
[2023-04-25] VITALS (11 sets, daily range): BP systolic 117–147; BP diastolic 32–76; PULSE 82–105; RESP 17–20; TEMP 36.6–36.8; O2SAT 94–100; BMI 22.6; BMI 22.9
--- NOTE | 2023-04-25 15:28 | XR_ITS ---
PROCEDURE INFORMATION: Exam: XR Chest Exam date and time: 04/25/2023 5:03 PM Age: 67 years old Clinical indication: Fever; Additional info: Fever, copd, recent hospitalization TECHNIQUE: Imaging protocol: Radiologic exam of the chest. Views: 1 view. COMPARISON: CR Chest 04/16/2023 10:54 PM and older chest x-rays dating back to 06/27/[address] 11/21/2022 and 09/28/2021 FINDINGS: Lungs: Emphysematous changes redemonstrated. Stable bandlike density adjacent to the left heart border compatible with subsegmental atelectasis or scarring. Lungs are otherwise clear. Pleural spaces: Unremarkable. No pleural effusion. No pneumothorax. Heart/Mediastinum: Unremarkable. No cardiomegaly. Bones/joints: Unremarkable. IMPRESSION: Stable chest x-ray with no acute disease.
--- NOTE | 2023-04-25 15:28 | CT_ITS ---
PROCEDURE INFORMATION: Exam: CT Abdomen And Pelvis With Contrast Exam date and time: 04/25/2023 5:01 PM Age: 67 years old Clinical indication: Abdominal pain; Other: Rlq; Additional info: Rlq abd pain TECHNIQUE: Imaging protocol: Computed tomography of the abdomen and pelvis with contrast. Radiation optimization: All CT scans at this facility use at least one of these dose optimization techniques: automated exposure control; mA and/or kV adjustment per patient size (includes targeted exams where dose is matched to clinical indication); or iterative reconstruction. Contrast material: ISOVUE; Contrast volume: 75 ml; Contrast route: IV; REPORTING DATA: Count of CT and Cardiac NM exams in prior 12 months: This patient has received 6 known CTs and 0 known cardiac nuclear medicine studies in the 12 months prior to the current study. COMPARISON: CT CHEST WO CON 11/21/2022 11:14 AM FINDINGS: Lungs: Lung bases are clear. Liver: Normal. No mass. Gallbladder and bile ducts: Normal. No calcified stones. No ductal dilation. Pancreas: Normal. No ductal dilation. Spleen: Normal. No splenomegaly. Adrenal glands: Normal. No mass. Kidneys and ureters: Normal. No hydronephrosis. Stomach and bowel: Extensive diverticula throughout the colon. Colon otherwise unremarkable with no evidence of diverticulitis. . Diverticula most numerous in the sigmoid and mid to distal descending colon. GI tract structures otherwise unremarkable with no evident wall thickening allowing for incomplete distention. Appendix: A 6 mm appendicolith is noted in the proximal portion of the appendix. The more distal portion of the appendix measures 8 mm in caliber but is filled with air with no evident wall thickening or secondary signs of appendicitis. Intraperitoneal space: Unremarkable. No free air. No significant fluid collection. Vasculature: Atherosclerotic changes of the aorta and iliacs noted. No evidence of aneurysm. Lymph nodes: Unremarkable. No enlarged lymph nodes. Urinary bladder: Unremarkable as visualized. Reproductive: Unremarkable as visualized. Bones/joints: Unremarkable. No acute fracture. Soft tissues: Unremarkable. IMPRESSION: 1. Possible obstructing appendicolith at the proximal portion of the appendix with associated air-filled distention of the more distal appendix measuring 8 mm considered within normal limits allowing for the air distention. No secondary signs of appendicitis. However, patient may be at risk for developing appendicitis given the potential obstructing proximal stone. 2. Additional nonemergent findings as above.
[2023-04-25 15:46] LABS: Microscopic, Urine URINE MICROSCOPIC (MICROSCOPIC)
--- NOTE | 2023-04-25 15:51 | HMH.EDGENADL ---
Discharge Plan Disposition Patient Disposition: Admitted Clinical Impressions Clinical Impression: Acute appendicitis Discharge ED Provider: Lucien Aviles General Adult HPI General Chief complaint: Abdominal Pain Stated complaint: sever adb pain Time Seen by Provider: 04/25/23 15:28 Mode of Arrival: Wheelchair Limitations: No Limitations Description of Symptoms (Recalled from ER Triage Doc. by RN): PT C/O LOWER ABDOMINAL PAIN THAT BEGAN THIS AM. PT REPORTS DIARRHEA THIS AM. DENIES FEVER OR CHILLS History of Present Illness HPI narrative: 67-year-old female with history of hypertension, hyperlipidemia, COPD on 4 L nasal cannula at home, CAD status post CT and stenting x 4 currently on Eliquis, recent hospital stay presenting with right lower quadrant pain. Patient states that she went up to go to the bathroom, had diarrhea this a.m. on 04/25. Nonbloody diarrhea. Shortly prior, started having lower abdominal pain. Severe, 10 out of 10, did not radiate. Patient denies fevers, vomiting, dysuria or hematuria. Pain is currently severe, suprapubic. Related Data Home Medications Medication Instructions Recorded Confirmed albuterol sulfate 90 mcg/actuation 2 puff inhalation Q4HP PRN 02/17/23 04/25/23 aerosol inhaler Shortness Of Breath apixaban 5 mg tablet (Eliquis) 5 mg PO BID Blood Thinner/AFIB 02/17/23 04/25/23 atorvastatin 10 mg tablet 10 mg PO HS Cholesterol 02/17/23 04/25/23 lisinopril 2.5 mg tablet 2.5 mg PO DAILY High Blood Pressure 02/17/23 04/25/23 metoprolol succinate 25 mg 25 mg PO DAILY High Blood Pressure 02/17/23 04/17/23 tablet,extended release 24 hr Previous Rx's Medication Instructions Recorded ipratropium 0.5 mg-albuterol 3 mg 3 ml inhalation QID PRN shortness 12/13/22 (2.5 mg base)/3 mL nebulization of breath or wheezing 90 days #270 soln mL fluticasone fur. 100 mcg-umeclid 1 ea inhalation DAILY #60 ea 03/16/23 62.5 mcg-vilant 25 mcg inhalat.powder (Trelegy Ellipta) clonazepam 1 mg tablet (Klonopin) 1 mg PO BID Anxiety #60 tabs 04/04/23 ferrous sulfate 325 mg (65 mg 325 mg PO DAILY 30 days #30 tabs 04/16/23 iron) tablet nicotine 21 mg/24 hr daily 21 mg transdermal DAILY 28 days 04/16/23 transdermal patch #28 ea pantoprazole 40 mg tablet,delayed 40 mg PO DAILY 30 days #30 tabs 04/16/23 release prednisone 20 mg tablet 40 mg PO DAILY 3 days #6 tabs 04/16/23 azithromycin 500 mg tablet 500 mg PO DAILY 2 days #2 tabs 04/17/23 gabapentin 600 mg tablet 600 mg PO BID Pain #90 tabs 04/17/23 Allergies Allergy/AdvReac Type Severity Reaction Status Date / Time levofloxacin Allergy Intermediate blisters Verified 04/25/23 14:51 in mouth, diarrhea PFSH PFSH Disclaimer: The information contained in this section may have been updated after the patient was seen, as this information can be updated by other users. Medical History Anxiety Hampton's palsy CAD (coronary artery disease) Chronic pain Chronic respiratory failure with hypoxia O2 dependent COPD exacerbation COPD mixed type Depression Encounter for screening for malignant neoplasm of lung Family history of asthma H/O Hampton's palsy HLD (hyperlipidemia) HTN (hypertension) Hypertrophic obstructive cardiomyopathy (2020) Cardiac cath Insomnia Lung nodule seen on imaging study PAD (peripheral artery disease) Presence of arterial stent PTSD (post-traumatic stress disorder) Pulmonary nodule Sinus tachycardia Smoking greater than 30 pack years SOB (shortness of breath) on exertion Vitamin D deficiency Surgical History S/P peripheral artery angioplasty with stent placement Family History Other Family history of hypertension Social History (Updated 04/25/23 @ 20:26 by Sheri Kaplan RN) Smoking Status: Current every day smoker tobacco type: cigarettes packs per day: 1 seco
[2023-04-25 16:30] LABS: Basophils % 0.2 % (0.1-2.0); Chloride 103 mmol/L (98-107); Eosinophils # 0.1 K/mm3 (0.0-0.4); Eosinophils % 1.4 % (0.1-12.0); Hematocrit 27.1 % (37.0-47.0); Hemoglobin 8.1 g/dL (12.2-16.2); Lymphocytes # 1.5 K/mm3 (0.7-4.5); Lymphocytes % 14.3 % (10-50); Mean Corpuscular HGB Conc 29.9 g/dL (31.8-35.4); Mean Corpuscular Hemoglobin 22.3 pg (27.0-31.2); Mean Corpuscular Volume 74.7 fl (81-99); Mean Platelet Volume 7.9 fl (7.4-10.4); Monocytes # 0.7 K/mm3 (0.1-1.0); Monocytes % 6.4 % (1.7-9.3); Neutrophils # 7.9 K/mm3 (1.8-7.8); Neutrophils % 77.7 % (37.0-80.0); Platelet Count 217 K/mm3 (142-424); Potassium 4.1 mmoL/L (3.5-5.1); Red Blood Count 3.62 M/mm3 (4.20-5.40); Red Cell Distribution Width 19.3 % (11.5-17.5); Sodium 139 mmol/L (136-145); White Blood Count 10.1 K/mm3 (4.8-10.8)
[2023-04-25 16:32] LABS: Blood Urea Nitrogen 20 mg/dl (7-17); Creatinine Clearance Estimated 48 mL/min (50-200); Estimated Glomerular Filt Rate 99 ml/min (>60); GFR (African American) 120 ML/MIN (>60)
[2023-04-25 16:33] LABS: Alanine Aminotransferase 25 U/L (12-78); Albumin Level 3.6 g/dl (3.5-5.0); Albumin/Globulin Ratio 1.1 (1.1-1.8); Alkaline Phosphatase 125 U/L (38-126); Anion Gap 4.1 mEq/L (5-15); Aspartate Amino Transferase 31 U/L (14-36); Calcium 8.7 mg/dl (8.4-10.2); Carbon Dioxide 36 mmol/L (22.0-30.0); Globulin 3.2 g/dL (1.3-3.2); Glucose 128 mg/dl (74-100); Lipase 65 U/L (23-300); Total Protein,Serum 6.8 g/dl (6.3-8.2)
[2023-04-25 16:34] LABS: Lactic Acid 2.2 mmol/L (0.7-2.1)
--- NOTE | 2023-04-25 16:34 | ECG_ITS ---
APPROVED REPORT Exam: Resting ECG HR:84 bpm ECG Measurements Heart Rate 84 AXES [place] 136 P 82 QRSd 75 QRS 83 QT 357 T 73 QTc 398 Conclusion SINUS RHYTHM POSSIBLE RIGHT VENTRICULAR CONDUCTION DELAY [RSR (QR) IN V1/V2] BORDERLINE ECG UNCONFIRMED REPORT Electronically signed by : Edgard Dasilva MD 04/26/2023 17:11:48
[2023-04-25 16:35] LABS: Bilirubin,Total 0.1 mg/dl (0.2-1.3)
[2023-04-25 16:38] LABS: Appearance,Urine CLEAR (Clear); Bilirubin,Urine Negative (Negative); Blood, Urine Negative (Negative); Color,Urine YELLOW (Yellow); Glucose,Urine (UA) Negative (Negative); Ketones,Urine Negative (Negative); Leukocyte Esterase,Urine TRACE (Negative); Nitrate,Urine Negative (Negative); PH,Urine 6.5 (5.0-8.5); Protein,Urine Negative (Negative); Urobilinogen,Urine 0.2 EU/dl (0.2)
[2023-04-25 16:38] LABS: C-Reactive Protein 1.5 mg/L (0-4)
[2023-04-25 16:57] LABS: Troponin I < 0.01 ng/ml (0.00-0.034)
[2023-04-25 17:03] LABS: Bacteria,Urine Trace /lpf; Calcium Oxalate Crystals,Urine 4+ /lpf; Squamous Epithelial Cell,Urine Occasional #/hpf (0-5); WBC,Urine Occasional #/hpf (0-3)
--- NOTE | 2023-04-25 18:21 | PC.NURSE ---
STATEMENT CLERKS SUPERVISOR NOTIFIED OF ADMISSION
--- NOTE | 2023-04-25 18:37 | PC.NURSE ---
DR SMITH AT BEDSIDE TO UPDATE PT AND FAMILY
--- NOTE | 2023-04-25 19:09 | EXP.HP ---
History of Present Illness *Admission Date: 04/25/23 *Reason for visit:: RLQ abd pain *History of present illness: This is a 67-year-old female with history of hypertension, hyperlipidemia, COPD on 4 L nasal cannula at home, CAD status post [place] and stenting x 4 currently on Eliquis, with recent hospital stay presenting with right lower quadrant pain. Patient states that she went up to go to the bathroom, had non bloody diarrhea this a.m. on 04/25. . Shortly prior, started having lower abdominal pain. Severe, 10 out of 10, did not radiate. Patient denies fevers, vomiting, dysuria or hematuria. Pain is currently severe, suprapubic. Admitted for further management. [facility] Disclaimer: The information contained in this section may have been updated after the patient was seen, as this information can be updated by other users. Medical History (Updated 04/26/23 @ 08:42 by Thanh Antony MD) Anxiety Hampton's palsy CAD (coronary artery disease) Chronic pain Chronic respiratory failure with hypoxia COPD exacerbation COPD mixed type Depression Encounter for screening for malignant neoplasm of lung Family history of asthma H/O Hampton's palsy HLD (hyperlipidemia) HTN (hypertension) Hypertrophic obstructive cardiomyopathy Insomnia Lung nodule seen on imaging study PAD (peripheral artery disease) Presence of arterial stent PTSD (post-traumatic stress disorder) Pulmonary nodule Sinus tachycardia Smoking greater than 30 pack years SOB (shortness of breath) on exertion Vitamin D deficiency Surgical History (Updated 04/26/23 @ 08:42 by Thanh Antony MD) S/P peripheral artery angioplasty with stent placement Family History Other Family history of hypertension Social History (Updated 04/25/23 @ 20:26 by Sheri Kaplan RN) Smoking Status: Current every day smoker tobacco type: cigarettes packs per day: 1 second hand exposure: No alcohol intake: never substance use type: denies use current occupational status: retired Travel in the last 8 weeks: None household members: children and none housing: house lives independently: No Review of Systems Review of Systems Review of systems:: pertinent systems reviewed and negative unless documented below Meds Home Medications and Allergies Home Medications Medication Instructions Recorded Confirmed Type ipratropium 0.5 mg-albuterol 3 mg 3 ml inhalation QID PRN shortness 12/13/22 04/26/23 Rx (2.5 mg base)/3 mL nebulization of breath or wheezing 90 days #270 soln mL albuterol sulfate 90 mcg/actuation 2 puff inhalation Q4HP PRN 02/17/23 04/26/23 History aerosol inhaler Shortness Of Breath apixaban 5 mg tablet (Eliquis) 5 mg PO BID Blood Thinner/AFIB 02/17/23 04/26/23 History atorvastatin 10 mg tablet 10 mg PO HS Cholesterol 02/17/23 04/25/23 History lisinopril 2.5 mg tablet 2.5 mg PO DAILY High Blood Pressure 02/17/23 04/26/23 History metoprolol succinate 25 mg 25 mg PO DAILY High Blood Pressure 02/17/23 04/25/23 History tablet,extended release 24 hr fluticasone fur. 100 mcg-umeclid 1 ea inhalation DAILY #60 ea 03/16/23 04/26/23 Rx 62.5 mcg-vilant 25 mcg inhalat.powder (Trelegy Ellipta) clonazepam 1 mg tablet (Klonopin) 1 mg PO BID Anxiety #60 tabs 04/04/23 04/25/23 Rx ferrous sulfate 325 mg (65 mg 325 mg PO DAILY 30 days #30 tabs 04/16/23 04/26/23 Rx iron) tablet pantoprazole 40 mg tablet,delayed 40 mg PO DAILY 30 days #30 tabs 04/16/23 04/26/23 Rx release gabapentin 600 mg tablet 600 mg PO BID Pain #90 tabs 04/17/23 04/25/23 Rx amoxicillin 500 mg-potassium 1 tab PO TID 5 days #15 tabs 04/26/23 Rx clavulanate 125 mg tablet (Augmentin) New Prescriptions to Start Prescriptions: amoxicillin-pot clavulanate [Augmentin] Joshua Baeza Allergies Allergy/AdvReac Type Severity Reaction Status Date / Time levofloxacin Allergy Intermediate blisters Verified 04/25
--- NOTE | 2023-04-25 19:10 | PC.NURSE ---
Resumed care from Angela KING, dayshift unwilling to take report at this time
--- NOTE | 2023-04-25 19:38 | PC.NURSE ---
Report called to Estrella KING room #[id number]
--- NOTE | 2023-04-25 19:41 | PC.NURSE ---
Report received from Lesley RN
--- NOTE | 2023-04-25 19:55 | PC.NURSE ---
pt arrived to the floor via wheelchair @19:52
[2023-04-25 20:16] LABS: Reflex Lactic Add Lactic Reflex
[2023-04-25 21:17] LABS: Lactic Acid Follow Up (RFLX 1) 0.8 mmol/L (0.7-2.1)
[2023-04-26] VITALS: BP 147/64; PULSE 103; RESP 17; TEMP 36.4; O2SAT 100
--- NOTE | 2023-04-26 03:52 | PC.NURSE ---
Pt is A&Ox4, currently on 2L of O2 ans sating in the high 90s. Pt has rested off and on this shift and has C/O pain which was relieved with pain medication. Pt required a breathing treatment this shift for SOB and anxiety. Pt tolerated treatment well and seemed to rest well afterwards. Pt is unsteady on her feet and insists on doing things for herself, Education given to pt on safety, call light and assistance from staff. Pt denies needs at this time.
[2023-04-26 04:00] VITALS: BP 128/55; PULSE 84; RESP 16; TEMP 36.6; O2SAT 100; BMI 23.1
--- NOTE | 2023-04-26 05:29 | PC.NURSE ---
0430 AM: Pt C/O's of severe abdominal pain stating that current pain medication is no longer working, Notified CARMEL Cardoza and received orders for Morphine 4MG IV ONCE. Pt refused medication stating that it will only make her sick and she is not taking that stuff she just wants the toradol that she had earlier. nurse explained to the pt that the medication was only ordered Q6H and it could not be given until that time, also gave pt education on both pain medications. Pt is upset and angry about being NPO and not seeing the surgeon yet. Nurse gave education on normal process from admission to surgery explaining the time the surgeon would most likely be in. 0500 AM: CARMEL Cardoza notified again about the refusal of medication and offered pt other options for pain relief. No new orders at this time due to pt refusal to take.
[2023-04-26 06:24] LABS: Basophils % 0.5 % (0.1-2.0); Eosinophils # 0.2 K/mm3 (0.0-0.4); Eosinophils % 3.1 % (0.1-12.0); Hematocrit 26.4 % (37.0-47.0); Hemoglobin 7.8 g/dL (12.2-16.2); Lymphocytes % 33.6 % (10-50); Mean Corpuscular HGB Conc 29.6 g/dL (31.8-35.4); Mean Corpuscular Hemoglobin 22.2 pg (27.0-31.2); Mean Corpuscular Volume 75.1 fl (81-99); Mean Platelet Volume 8.2 fl (7.4-10.4); Monocytes # 0.4 K/mm3 (0.1-1.0); Monocytes % 6.2 % (1.7-9.3); Neutrophils # 3.4 K/mm3 (1.8-7.8); Neutrophils % 56.6 % (37.0-80.0); Platelet Count 204 K/mm3 (142-424); Red Blood Count 3.52 M/mm3 (4.20-5.40); Red Cell Distribution Width 19.3 % (11.5-17.5); White Blood Count 6.1 K/mm3 (4.8-10.8)
[2023-04-26 06:32] LABS: Alanine Aminotransferase 21 U/L (12-78); Alkaline Phosphatase 132 U/L (38-126); Aspartate Amino Transferase 25 U/L (14-36); Bilirubin,Total 0.2 mg/dl (0.2-1.3); Blood Urea Nitrogen 15 mg/dl (7-17); Calcium 8.4 mg/dl (8.4-10.2); Carbon Dioxide 33 mmol/L (22.0-30.0); Chloride 103 mmol/L (98-107); Creatinine Clearance Estimated 49 mL/min (50-200); Estimated Glomerular Filt Rate 83 ml/min (>60); GFR (African American) 101 ML/MIN (>60); Glucose 87 mg/dl (74-100); Magnesium 2.1 mg/dl (1.6-2.3)
[2023-04-26 06:43] LABS: Activated Partial Thrombo Time 21.9 seconds (22.8-30.6); INR 0.93 (0.9-1.1); Prothrombin Time 10.1 seconds (10.1-12.5)
[2023-04-26 07:34] LABS: Albumin Level 3.4 g/dl (3.5-5.0); Albumin/Globulin Ratio 1.1 (1.1-1.8); Anion Gap 7.5 mEq/L (5-15); Potassium 4.5 mmoL/L (3.5-5.1); Sodium 139 mmol/L (136-145); Total Protein,Serum 6.4 g/dl (6.3-8.2)
--- NOTE | 2023-04-26 07:34 | HMH.PHAINT1 ---
Pharmacy Intervention Comments: Med reconciliation completed using external fill history and patient interview. Ms Hurst states that she decreased her gabapentin dose from TID to BID. She states that she last took Eliquis on 04/25 around 9 am.
[2023-04-26 08:00] VITALS: BP 144/58; PULSE 95; RESP 19; TEMP 36.4; O2SAT 99
--- NOTE | 2023-04-26 08:23 | EXP.SURG.CON ---
History of Present Illness *Admission Date: 04/25/23 *Reason for visit:: Appendicolith *History of present illness: This is a 67-year-old female seen in consultation from the hospital service for evaluation regarding radiographic evidence of appendicolith. Please see HPI forwarded below from emergency department evaluation and admission H&P. She describes initial pain kind of everywhere in the abdomen prior to evaluation in the emergency department. No fevers. Currently, she feels much better . She states that she has some soreness . Generalized complaints of pain/soreness noted chronically. Forwarded from emergency department evaluation/admission H&P: This is a 67-year-old female with history of hypertension, hyperlipidemia, COPD on 4 L nasal cannula at home, CAD status post OH and stenting x 4 currently on Eliquis, with recent hospital stay presenting with right lower quadrant pain. Patient states that she went up to go to the bathroom, had non bloody diarrhea this a.m. on 04/25. . Shortly prior, started having lower abdominal pain. Severe, 10 out of 10, did not radiate. Patient denies fevers, vomiting, dysuria or hematuria. Pain is currently severe, suprapubic. Admitted for further management. [facility] Disclaimer: The information contained in this section may have been updated after the patient was seen, as this information can be updated by other users. Medical History Anxiety Hampton's palsy CAD (coronary artery disease) Chronic pain Chronic respiratory failure with hypoxia O2 dependent COPD exacerbation COPD mixed type Depression Encounter for screening for malignant neoplasm of lung Family history of asthma H/O Hampton's palsy HLD (hyperlipidemia) HTN (hypertension) Hypertrophic obstructive cardiomyopathy (2020) Cardiac cath Insomnia Lung nodule seen on imaging study PAD (peripheral artery disease) Presence of arterial stent PTSD (post-traumatic stress disorder) Pulmonary nodule Sinus tachycardia Smoking greater than 30 pack years SOB (shortness of breath) on exertion Vitamin D deficiency Surgical History S/P peripheral artery angioplasty with stent placement Family History Other Family history of hypertension Social History (Updated 04/25/23 @ 20:26 by Sheri Kaplan RN) Smoking Status: Current every day smoker tobacco type: cigarettes packs per day: 1 second hand exposure: No alcohol intake: never substance use type: denies use current occupational status: retired Travel in the last 8 weeks: None household members: children and none housing: house lives independently: No Meds Home Medications and Allergies Home Medications Medication Instructions Recorded Confirmed Type ipratropium 0.5 mg-albuterol 3 mg 3 ml inhalation QID PRN shortness 12/13/22 04/26/23 Rx (2.5 mg base)/3 mL nebulization of breath or wheezing 90 days #270 soln mL albuterol sulfate 90 mcg/actuation 2 puff inhalation Q4HP PRN 02/17/23 04/26/23 History aerosol inhaler Shortness Of Breath apixaban 5 mg tablet (Eliquis) 5 mg PO BID Blood Thinner/AFIB 02/17/23 04/26/23 History atorvastatin 10 mg tablet 10 mg PO HS Cholesterol 02/17/23 04/25/23 History lisinopril 2.5 mg tablet 2.5 mg PO DAILY High Blood Pressure 02/17/23 04/26/23 History metoprolol succinate 25 mg 25 mg PO DAILY High Blood Pressure 02/17/23 04/25/23 History tablet,extended release 24 hr fluticasone fur. 100 mcg-umeclid 1 ea inhalation DAILY #60 ea 03/16/23 04/26/23 Rx 62.5 mcg-vilant 25 mcg inhalat.powder (Trelegy Ellipta) clonazepam 1 mg tablet (Klonopin) 1 mg PO BID Anxiety #60 tabs 04/04/23 04/25/23 Rx ferrous sulfate 325 mg (65 mg 325 mg PO DAILY 30 days #30 tabs 04/16/23 04/26/23 Rx iron) tablet pantoprazole 40 mg tablet,delayed 40 mg PO DAILY 30 days #30 tabs 04/16/2304/26
--- NOTE | 2023-04-26 11:33 | EXP.DC.SUM ---
General Admission date:: 04/25/23 Discharge date: 04/26/23 HPI HPI HPI: This is a 67-year-old female seen in consultation from the hospital service for evaluation regarding radiographic evidence of appendicolith. Please see HPI forwarded below from emergency department evaluation and admission H&P. She describes initial pain kind of everywhere in the abdomen prior to evaluation in the emergency department. No fevers. Currently, she feels much better . She states that she has some soreness . Generalized complaints of pain/soreness noted chronically. Forwarded from emergency department evaluation/admission H&P: This is a 67-year-old female with history of hypertension, hyperlipidemia, COPD on 4 L nasal cannula at home, CAD status post [place] and stenting x 4 currently on Eliquis, with recent hospital stay presenting with right lower quadrant pain. Patient states that she went up to go to the bathroom, had non bloody diarrhea this a.m. on 04/25. . Shortly prior, started having lower abdominal pain. Severe, 10 out of 10, did not radiate. Patient denies fevers, vomiting, dysuria or hematuria. Pain is currently severe, suprapubic. Admitted for further management. Hospital Course Hospital Course Hospital Course: 67-year-old female with history of hypertension, hyperlipidemia, COPD on 4 L nasal cannula at home, CAD status post IL and stenting x 4 currently on Eliquis, with recent hospital stay presenting with right lower quadrant pain The pt was discharged earlier this month for COPD exacerbation. initial ER evaluation included CT of the abdomen that confirmed appendicolith without appendicitis. not perforation. the rest of lab work are unremarkable. Findings discussed with ER provider. Due to the high risk of further complication we were agreed for patient admission and Discussed with surgeon on awake counselor for their insight. She is wearing her baseline oxygen of 4L. Stable overnight. Pain resolved by morning. Labs stable. Surgery evaluated, recommend outpatient follow-up. No indication for surgery at this time. Plan to discharge home. Patient comfortable with this plan. Problems addressed as follows during admission -RLQ abdominal pain secondary to appendicolith: Monitored overnight with serial exams. Surgery was consulted. Abdomen benign and nonacute in the morning. Given findings on imaging, no acute obstruction. Stable exam and normal white cell count, discussed risks and benefits with patient. Will defer surgical intervention at this time. Empiric 5-day course of Augmentin for medical management in the setting of possible early appendicitis. Patient tolerating p.o. intake. White cell count remained stable, 6.1 on morning of discharge. Patient at baseline level of health. Discharged home in care of daughter. -COPD NOT ON EXACERBATION On home oxygen of 4 L. Sats have remained in the low to mid 90s. Continue inhaler regimen. Chest x-ray with no focal findings. ANEMIA PAD HTN HLD -Continued home medications for chronic conditions. lipitor 10 mg, clonazepam 1mg, ferrous sulfate 325 mg, gabapentin 600mg, lisinopril 2.5mg, metoprolol 25mg, protonix 40 mg. Eliquis held out of concern for possible surgical intervention. At this time and is okay to resume at discharge. Stable for discharge home. Spent 30 minutes in discharge counseling, discussion with family, chart review and documentation, and direct care with patient. Exam Data for Last 24 hours Vital signs and Labs for Last 24 Hours: Temp Pulse Resp BP Pulse Ox O2 Del Method O2 Flow Rate 97.6 F 95 H 19 144/58 H 99 Nasal Cannula 2 04/26/23 08:00 04/26/23 08:00 04/26/23 08:00 04/26/23 08:00 04/26/23 08:00 04/26/23 08:00 04/26/23 06:37 Laboratory Results - last 24 hr 04/25/23 15:39: Urine Color Yellow, Urine Appearance Clear, Urine pH 6.5, Ur Specific [place] 1.020, Urine Protein Negative, Urine Glucose (UA) Negative, Urine Ketones Negative, Urine Blood
--- NOTE | 2023-04-26 11:37 | SW/DCPLANNER ---
Patient is currently established w/ [facility]. I have updated Cathy w/ [facility] that patient will discharge home today and updated patient information has been faxed.
--- NOTE | 2023-05-01 17:03 | CARE MANAGER ---
Contacted patient's daughter. She states she was doing well, but today she has had more abdominal pain. She is aware of follow up appointments and denies questions or concerns. CHRISTINE Perla
== END 2023-04-26 15:24 | disposition home health service (06) ==
LOC: ER 18:22 → 2ND 18:38
PROVIDERS: Admitting Provider Internal Medicine Adolescent Medicine; Emergency Provider Emergency Medicine; PCP Physician Assistant; Visit Provider Internal Medicine Adolescent Medicine
DX: K38.1 Appendicular concretions (principal); R10.31 Right lower quadrant pain; D64.9 Anemia, unspecified; J44.9 Chronic obstructive pulmonary disease, unspecified; I25.10 Atherosclerotic heart disease of native coronary artery without angina pectoris; I73.9 Peripheral vascular disease, unspecified; I10 Essential (primary) hypertension; E78.2 Mixed hyperlipidemia; F17.210 Nicotine dependence, cigarettes, uncomplicated; Z79.899 Other long term (current) drug therapy; Z79.01 Long term (current) use of anticoagulants; I25.2 Old myocardial infarction
CPT/HCPCS: 36415; 71045; 74177; 80053; 81001; 83605; 83690; 83735; 84484; 85025; 85610; 85730; 86140; 87040; 93005; 94640; 99285; G0378; J2405; Q9967

== ENCOUNTER 2023-05-12 14:06 | Emergency (ER) | payer MEDICARE, SELFPAY ==
[2023-05-12] VITALS (11 sets, daily range): BP systolic 141–179; BP diastolic 54–77; PULSE 80–114; RESP 16–32; TEMP 36.4; O2SAT 98–100; BMI 22.6
--- NOTE | 2023-05-12 14:33 | PC.NURSE ---
Assumed care of patient at this time
--- NOTE | 2023-05-12 14:34 | CT_ITS ---
PROCEDURE INFORMATION: Exam: CT Abdomen And Pelvis With Contrast Exam date and time: 05/12/2023 3:31 PM Age: 67 years old Clinical indication: Abdominal pain; Other: Lower abd; Additional info: Severe lower abd pain TECHNIQUE: Imaging protocol: Computed tomography of the abdomen and pelvis with contrast. Radiation optimization: All CT scans at this facility use at least one of these dose optimization techniques: automated exposure control; mA and/or kV adjustment per patient size (includes targeted exams where dose is matched to clinical indication); or iterative reconstruction. Contrast material: ISOVUE; Contrast volume: 75 ml; Contrast route: IV; REPORTING DATA: Count of CT and Cardiac NM exams in prior 12 months: This patient has received 7 known CTs and 0 known cardiac nuclear medicine studies in the 12 months prior to the current study. COMPARISON: 1. CT ABDOMEN PELVIS W CON 04/25/2023 5:[address] ABDOMEN PELVIS W CON 08/28/2020 5:[address] CHEST WO CON 11/21/2022 11:14 AM FINDINGS: Liver: Normal. No mass. Gallbladder and bile ducts: Normal. No calcified stones. No ductal dilation. Pancreas: The pancreas is of normal size and morphology, without evidence of masses, cysts, or calcifications. The pancreatic duct is not dilated. Spleen: The spleen is normal in size and attenuation. No splenic masses or cysts are observed. Adrenal glands: The adrenal glands appear normal. Kidneys and ureters: Both kidneys are of normal size and show uniform attenuation. There are no renal masses, cysts, or calculi. The adrenal glands appear normal. Stomach and bowel: There are scattered colonic diverticula without evidence for active diverticulitis. Appendix: The appendix is normal in appearance. Intraperitoneal space: Unremarkable. No free air. No significant fluid collection. Vasculature: Bilateral iliac arterial stents are noted. There is atherosclerotic disease of the visualized aorta and its major branch vessels. Lymph nodes: No enlarged or pathological lymph nodes are identified in the abdomen or pelvis. Urinary bladder: There is mild bladder wall thickening, possibly due to under distention and a nonspecific finding. Reproductive: No significant pathology. Bones/joints: There is diffuse degenerative disease of the visualized osseous structures. Soft tissues: There is a small fat containing umbilical hernia. IMPRESSION: 1. Normal appendix. 2. No definite signs of inflammatory conditions, masses, adenopathy, or collections were observed in the abdomen or pelvis at the time of imaging. Additionally, the urinary tract and gastrointestinal system did not show any evidence of obstruction on the images acquired. 3. Otherwise, incidental findings as above.
--- NOTE | 2023-05-12 15:03 | PC.NURSE ---
Rounded on patient call light within reach
[2023-05-12 15:05] LABS: Basophils % 0.6 % (0.1-2.0); Eosinophils # 0.3 K/mm3 (0.0-0.4); Eosinophils % 4.5 % (0.1-12.0); Hematocrit 26.2 % (37.0-47.0); Hemoglobin 7.8 g/dL (12.2-16.2); Lymphocytes # 1.1 K/mm3 (0.7-4.5); Mean Corpuscular HGB Conc 29.6 g/dL (31.8-35.4); Mean Corpuscular Hemoglobin 21.5 pg (27.0-31.2); Mean Corpuscular Volume 72.6 fl (81-99); Mean Platelet Volume 9.7 fl (7.4-10.4); Monocytes # 0.3 K/mm3 (0.1-1.0); Monocytes % 5.3 % (1.7-9.3); Neutrophils # 4.5 K/mm3 (1.8-7.8); Neutrophils % 71.6 % (37.0-80.0); Platelet Count 284 K/mm3 (142-424); Red Blood Count 3.61 M/mm3 (4.20-5.40); Red Cell Distribution Width 18.8 % (11.5-17.5); White Blood Count 6.3 K/mm3 (4.8-10.8)
--- NOTE | 2023-05-12 15:05 | PC.NURSE ---
Fall risk bracelet and allergy bracelet placed on patient
[2023-05-12 15:11] LABS: Alanine Aminotransferase 26 U/L (12-78); Albumin Level 3.9 g/dl (3.5-5.0); Albumin/Globulin Ratio 1.1 (1.1-1.8); Alkaline Phosphatase 131 U/L (38-126); Aspartate Amino Transferase 46 U/L (14-36); Bilirubin,Total 0.3 mg/dl (0.2-1.3); Blood Urea Nitrogen 15 mg/dl (7-17); Calcium 8.6 mg/dl (8.4-10.2); Carbon Dioxide 30 mmol/L (22.0-30.0); Chloride 105 mmol/L (98-107); Creatinine Clearance Estimated 48 mL/min (50-200); Estimated Glomerular Filt Rate 83 ml/min (>60); GFR (African American) 101 ML/MIN (>60); Globulin 3.4 g/dL (1.3-3.2); Glucose 112 mg/dl (74-100); Total Protein,Serum 7.3 g/dl (6.3-8.2)
[2023-05-12 15:12] LABS: Lipase 69 U/L (23-300); Sodium 139 mmol/L (136-145)
--- NOTE | 2023-05-12 15:14 | PC.NURSE ---
Warm blanket provided to patient; call light within reach of patient
--- NOTE | 2023-05-12 15:37 | PC.NURSE ---
Pt returned from RAD
--- NOTE | 2023-05-12 16:00 | HMH.EDGENADL ---
Discharge Plan Disposition Patient Disposition: Home, Self-Care Condition: Good Prescriptions Prescriptions: New nitrofurantoin macrocrystal 100 mg capsule 100 mg PO BID 5 Days Qty: 10 0RF Rx Instructions: must administer with a meal/food No Action ipratropium-albuterol 0.5 mg-3 mg(2.5 mg base)/3 mL solution for nebulization 3 ml inhalation QID PRN (Reason: shortness of breath or wheezing) 90 Days Qty: 270 2RF pantoprazole 40 mg tablet,delayed release (DR/EC) 40 mg PO DAILY Trelegy Ellipta 100-62.5-25 mcg blister with device 1 ea inhalation DAILY Qty: 60 2RF albuterol sulfate 90 mcg/actuation HFA aerosol inhaler See Rx Instructions .ROUTE .COMPLEX Qty: 9 3RF Dose Instruction: INHALE 2 PUFFS BY MOUTH EVERY 4 TO 6 HOURS NEEDED FOR SHORTNESS OF BREATH Rx Instructions: INHALE 2 PUFFS BY MOUTH EVERY 4 TO 6 HOURS NEEDED FOR SHORTNESS OF BREATH lisinopril 2.5 mg tablet See Rx Instructions .ROUTE .COMPLEX Qty: 90 0RF Dose Instruction: TAKE 1 TABLET BY MOUTH DAILY Rx Instructions: TAKE 1 TABLET BY MOUTH DAILY clonazepam [Klonopin] 1 mg tablet 1 mg PO BID Qty: 60 0RF gabapentin 600 mg tablet 600 mg PO BID Qty: 90 0RF atorvastatin 10 mg tablet 10 mg PO HS metoprolol succinate 25 mg tablet extended release 24 hr 25 mg PO DAILY Eliquis 5 mg tablet 5 mg PO BID ferrous sulfate 325 mg (65 mg iron) Tablet 325 mg PO DAILY 30 Days Qty: 30 3RF Referrals Follow up/Referrals: Stephy Morin PA [Primary Care Provider] - See instructions Activity Restrictions/Add. Instructions Additional Instructions/Restrictions: Please follow-up with your primary care provider. Please return to the emergency department if you develop any new or worsening symptoms or become concerned for your health. Please take Macrobid as prescribed for urinary tract infection. Clinical Impressions Clinical Impression: Abdominal pain, Acute UTI Instructions Patient Instructions: DI for Acute Abdominal Pain Discharge ED Provider: Nitza Basilio General Adult HPI <Nitza Basilio DO - Last Filed: 05/12/23 16:10> General Chief complaint: Abdominal Pain Stated complaint: Pain in stomach, referred from Michael Morin Time Seen by Provider: 05/12/23 14:24 Mode of Arrival: Wheelchair Source of Information: Patient and Relative Limitations: No Limitations Description of Symptoms (Recalled from ER Triage Doc. by RN): c/o abdomen pain all over for a few weeks, was admitted here 2 weeks ago for a stone in her appendix but they felt at that time did not need to come out. Seen her PCP who sent her over for further workup due to her pain coming back History of Present Illness HPI narrative: This patient is a 67-year-old female with a history of COPD on home O2, CAD, PAD, hypertension, tobacco use disorder, hypertrophic cardiomyopathy, PTSD, and paroxysmal atrial fibrillation presenting to the emergency department for evaluation with concern for lower abdominal pain. She was evaluated at her PCPs office today for similar symptoms and was sent here for further evaluation and management. Patient was evaluated here 04/25/2023 for similar symptoms, at which point she had an appendicolith and an 8 mm appendix concerning for early appendicitis. She was admitted and evaluated by general surgery for which point her symptoms had resolved. Given this, no operative intervention was undergone. She notes her pain has returned and become more severe since. She also notes nausea. No other concerns, such as fevers, chills, chest pain, shortness of breath, or other concerns at this time. Related Data Home Medications Medication Instructions Recorded Confirmed apixaban 5 mg tablet (Eliquis) 5 mg PO BID Blood Thinner/AFIB 02/17/23 05/12/23 atorvastatin 10 mg tablet 10 mg PO HS Cholesterol 02/17/23 05/12/23 metoprolol succinate 25 mg 25 mg PO DAILY High Blood Pressure 02/17/23
--- NOTE | 2023-05-12 16:23 | PC.NURSE ---
Informed patient we are still waiting on UA. Patient stated she still did not think she would be able to leave one. Stated to patient we would need to in and out cath if she was still unable to urinate. Patient stated that was okay and to go ahead and get it over with MD notified; in and out cathed patient. UA sent to lab
[2023-05-12 16:27] LABS: Microscopic, Urine URINE MICROSCOPIC (MICROSCOPIC)
[2023-05-12 17:10] LABS: Appearance,Urine CLEAR (Clear); Bilirubin,Urine Negative (Negative); Blood, Urine TRACE-I (Negative); Color,Urine YELLOW (Yellow); Glucose,Urine (UA) Negative (Negative); Ketones,Urine Negative (Negative); Leukocyte Esterase,Urine TRACE (Negative); Nitrate,Urine POSITIVE (Negative); PH,Urine 5.5 (5.0-8.5); Protein,Urine Negative (Negative); Urobilinogen,Urine 0.2 EU/dl (0.2)
[2023-05-12 17:46] LABS: Bacteria,Urine Trace /lpf; RBC,Urine Occasional #/hpf (0-3); Squamous Epithelial Cell,Urine Occasional #/hpf (0-5)
== END 2023-05-12 18:42 | disposition home or self-care (01) ==
PROVIDERS: Emergency Provider Emergency Medicine; PCP Physician Assistant
DX: R10.30 Lower abdominal pain, unspecified (principal); R11.0 Nausea; N39.0 Urinary tract infection, site not specified; J44.9 Chronic obstructive pulmonary disease, unspecified; I25.10 Atherosclerotic heart disease of native coronary artery without angina pectoris; I73.9 Peripheral vascular disease, unspecified; I10 Essential (primary) hypertension; I48.0 Paroxysmal atrial fibrillation; F43.10 Post-traumatic stress disorder, unspecified; F17.210 Nicotine dependence, cigarettes, uncomplicated
CPT/HCPCS: 74177; 80053; 81001; 83690; 85025; J2405; Q9967

== ENCOUNTER 2023-05-13 18:13 | Inpatient (IN) | payer MEDICARE, SELFPAY ==
[2023-05-13] VITALS (7 sets, daily range): BP systolic 98–151; BP diastolic 43–63; PULSE 101–130; RESP 20–26; TEMP 36.7–38.9; O2SAT 96–100; BMI 22.6; BMI 23.2
--- NOTE | 2023-05-13 18:17 | HMH.EDGENADL ---
Discharge Plan Disposition Patient Disposition: Admitted Chief Complaint: Weakness Prescriptions Prescriptions: No Action ipratropium-albuterol 0.5 mg-3 mg(2.5 mg base)/3 mL solution for nebulization 3 ml inhalation QID PRN (Reason: shortness of breath or wheezing) 90 Days Qty: 270 2RF pantoprazole 40 mg tablet,delayed release (DR/EC) 40 mg PO DAILY Trelegy Ellipta 100-62.5-25 mcg blister with device 1 ea inhalation DAILY Qty: 60 2RF albuterol sulfate 90 mcg/actuation HFA aerosol inhaler See Rx Instructions .ROUTE .COMPLEX Qty: 9 3RF Dose Instruction: INHALE 2 PUFFS BY MOUTH EVERY 4 TO 6 HOURS NEEDED FOR SHORTNESS OF BREATH Rx Instructions: INHALE 2 PUFFS BY MOUTH EVERY 4 TO 6 HOURS NEEDED FOR SHORTNESS OF BREATH lisinopril 2.5 mg tablet See Rx Instructions .ROUTE .COMPLEX Qty: 90 0RF Dose Instruction: TAKE 1 TABLET BY MOUTH DAILY Rx Instructions: TAKE 1 TABLET BY MOUTH DAILY clonazepam [Klonopin] 1 mg tablet 1 mg PO BID Qty: 60 0RF gabapentin 600 mg tablet 600 mg PO BID Qty: 90 0RF atorvastatin 10 mg tablet 10 mg PO HS metoprolol succinate 25 mg tablet extended release 24 hr 25 mg PO DAILY Eliquis 5 mg tablet 5 mg PO BID ferrous sulfate 325 mg (65 mg iron) Tablet 325 mg PO DAILY 30 Days Qty: 30 3RF nitrofurantoin macrocrystal 100 mg capsule 100 mg PO BID 5 Days Qty: 10 0RF Rx Instructions: must administer with a meal/food Referrals Follow up/Referrals: Provider,Referral, MD [Primary Care Provider] - See instructions Clinical Impressions Clinical Impression: Sepsis, Acute UTI Pneumonia Qualifiers: Pneumonia type: due to unspecified organism Laterality: left Lung location: lower lobe of lung Qualified Code(s): J18.9 - Pneumonia, unspecified organism Discharge ED Provider: Acosta Weaver General Adult HPI General Chief complaint: Weakness Stated complaint: uti Time Seen by Provider: 05/13/23 18:17 History of Present Illness HPI narrative: 67-year-old female, history as reported below presents with fever, tachycardia, confusion today. She was seen in ED yesterday for abdominal pain. At that time her workup was significant for a UTI, negative CT scan and otherwise unremarkable labs. She was given Macrobid and discharge. Today the patient has been more tired and less with it . Has had a couple of falls today per EMS. She is on blood thinner. Patient reports mild left lower back pain, no CVA pain. Denies neck pain. Reports shortness of breath worse than normal. Related Data Home Medications Medication Instructions Recorded Confirmed apixaban 5 mg tablet (Eliquis) 5 mg PO BID Blood Thinner/AFIB 02/17/23 05/12/23 atorvastatin 10 mg tablet 10 mg PO HS Cholesterol 02/17/23 05/12/23 metoprolol succinate 25 mg 25 mg PO DAILY High Blood Pressure 02/17/23 05/12/23 tablet,extended release 24 hr pantoprazole 40 mg tablet,delayed 40 mg PO DAILY 05/12/23 release Previous Rx's Medication Instructions Recorded ipratropium 0.5 mg-albuterol 3 mg 3 ml inhalation QID PRN shortness 12/13/22 (2.5 mg base)/3 mL nebulization of breath or wheezing 90 days #270 soln mL fluticasone fur. 100 mcg-umeclid 1 ea inhalation DAILY #60 ea 03/16/23 62.5 mcg-vilant 25 mcg inhalat.powder (Trelegy Ellipta) ferrous sulfate 325 mg (65 mg 325 mg PO DAILY 30 days #30 tabs 04/16/23 iron) tablet albuterol sulfate 90 mcg/actuation See Rx Instructions .Route 05/01/23 aerosol inhaler .COMPLEX #9 grams lisinopril 2.5 mg tablet See Rx Instructions .Route 05/02/23 .COMPLEX #90 tabs clonazepam 1 mg tablet (Klonopin) 1 mg PO BID Anxiety #60 tabs 05/05/23 gabapentin 600 mg tablet 600 mg PO BID Pain #90 tabs 05/05/23 nitrofurantoin macrocrystal 100 mg 100 mg PO BID 5 days #10 caps 05/12/23 capsule Allergies Allergy/AdvReac Type Severity Reaction Status Date / Time levofloxacin Allergy Intermediate blisters Garrett
--- NOTE | 2023-05-13 18:19 | CT_ITS ---
PROCEDURE INFORMATION: Exam: CT Head Without Contrast Exam date and time: 05/13/2023 6:36 PM Age: 67 years old Clinical indication: Injury or trauma; Fall; Additional info: Fall, confusion TECHNIQUE: Imaging protocol: Computed tomography of the head without contrast. Radiation optimization: All CT scans at this facility use at least one of these dose optimization techniques: automated exposure control; mA and/or kV adjustment per patient size (includes targeted exams where dose is matched to clinical indication); or iterative reconstruction. REPORTING DATA: Count of CT and Cardiac NM exams in prior 12 months: This patient has received 8 known CTs and 0 known cardiac nuclear medicine studies in the 12 months prior to the current study. COMPARISON: CT HEAD/BRAIN WO CON 12/19/2022 7:39 AM FINDINGS: Brain: Mild supratentorial white matter hypodensities are likely the sequela of chronic small vessel ischemic disease. Mild atrophy. No hemorrhage, edema, or mass effect. Cerebral ventricles: No ventriculomegaly. Paranasal sinuses: Visualized sinuses are unremarkable. No fluid levels. Mastoid air cells: Visualized mastoid air cells are well aerated. Bones/joints: Unremarkable. No acute fracture. Soft tissues: Unremarkable. IMPRESSION: No acute intracranial findings.
--- NOTE | 2023-05-13 18:23 | CT_ITS ---
PROCEDURE INFORMATION: Exam: CT Cervical Spine Without Contrast Exam date and time: 05/13/2023 6:38 PM Age: 67 years old Clinical indication: Injury or trauma; Fall TECHNIQUE: Imaging protocol: Computed tomography of the cervical spine without contrast. Radiation optimization: All CT scans at this facility use at least one of these dose optimization techniques: automated exposure control; mA and/or kV adjustment per patient size (includes targeted exams where dose is matched to clinical indication); or iterative reconstruction. REPORTING DATA: Count of CT and Cardiac NM exams in prior 12 months: This patient has received 8 known CTs and 0 known cardiac nuclear medicine studies in the 12 months prior to the current study. COMPARISON: CT HEAD/BRAIN WO CON 05/13/2023 6:36 PM FINDINGS: Bones/joints: No cervical spine fracture or listhesis. Mild degenerative disc disease from C3-C4 through C6-C7. Moderate left-sided facet arthropathy from C2-C3 through C4-C5. No significant spinal canal stenosis. Moderate left C3-C4 neural foraminal stenosis. Lungs: Mild emphysema at the lung apices. Soft tissues: Unremarkable. IMPRESSION: No acute findings.
--- NOTE | 2023-05-13 18:24 | XR_ITS ---
PROCEDURE INFORMATION: Exam: XR Chest Exam date and time: 05/13/2023 6:29 PM Age: 67 years old Clinical indication: Cough; Additional info: Worsening cough TECHNIQUE: Imaging protocol: Radiologic exam of the chest. Views: 1 view. COMPARISON: CR XR CHEST PORTABLE 04/25/2023 5:03 PM FINDINGS: Lungs: Hyperexpanded lungs with left lower lobe infiltrate. Pleural spaces: Unremarkable. No pleural effusion. No pneumothorax. Heart/Mediastinum: Unremarkable. No cardiomegaly. Bones/joints: Unremarkable. IMPRESSION: Hyperexpanded lungs with left lower lobe infiltrate.
[2023-05-13 18:32] LABS: Basophils % 0.1 % (0.1-2.0); Eosinophils # 0.1 K/mm3 (0.0-0.4); Eosinophils % 0.9 % (0.1-12.0); Hematocrit 25.2 % (37.0-47.0); Hemoglobin 7.7 g/dL (12.2-16.2); Lymphocytes # 0.4 K/mm3 (0.7-4.5); Lymphocytes % 3.4 % (10-50); Mean Corpuscular HGB Conc 30.3 g/dL (31.8-35.4); Mean Corpuscular Hemoglobin 21.6 pg (27.0-31.2); Mean Platelet Volume 8.1 fl (7.4-10.4); Monocytes # 0.3 K/mm3 (0.1-1.0); Monocytes % 2.8 % (1.7-9.3); Neutrophils % 92.8 % (37.0-80.0); Platelet Count 239 K/mm3 (142-424); Red Blood Count 3.55 M/mm3 (4.20-5.40); Red Cell Distribution Width 18.7 % (11.5-17.5); White Blood Count 11.8 K/mm3 (4.8-10.8)
[2023-05-13 18:33] LABS: Chloride 105 mmol/L (98-107); Sodium 139 mmol/L (136-145)
[2023-05-13 18:34] LABS: Potassium 4.1 mmoL/L (3.5-5.1)
[2023-05-13 18:36] LABS: Alanine Aminotransferase 25 U/L (12-78); Albumin Level 3.8 g/dl (3.5-5.0); Albumin/Globulin Ratio 1.2 (1.1-1.8); Alkaline Phosphatase 159 U/L (38-126); Anion Gap 8.1 mEq/L (5-15); Aspartate Amino Transferase 32 U/L (14-36); Bilirubin,Total 0.6 mg/dl (0.2-1.3); Blood Urea Nitrogen 15 mg/dl (7-17); Carbon Dioxide 30 mmol/L (22.0-30.0); Creatinine Clearance Estimated 48 mL/min (50-200); Estimated Glomerular Filt Rate 71 ml/min (>60); GFR (African American) 86 ML/MIN (>60); Globulin 3.3 g/dL (1.3-3.2); MANUAL DIFFERENTIAL MANUAL DIFFERENTIAL (MANUAL DIFF); Total Protein,Serum 7.1 g/dl (6.3-8.2)
[2023-05-13 18:37] LABS: Calcium 8.7 mg/dl (8.4-10.2); Glucose 137 mg/dl (74-100)
[2023-05-13 18:38] LABS: INR 0.95 (0.9-1.1); Prothrombin Time 10.3 seconds (10.1-12.5)
[2023-05-13 18:45] LABS: Magnesium 2.1 mg/dl (1.6-2.3)
--- NOTE | 2023-05-13 18:47 | ECG_ITS ---
APPROVED REPORT Exam: Resting ECG HR:124 bpm ECG Measurements Heart Rate 124 AXES OH 141 P 87 QRSd 75 QRS 84 QT 298 T 73 QTc 372 Conclusion SINUS TACHYCARDIA ABNORMAL RHYTHM ECG UNCONFIRMED REPORT Electronically signed by : Edgard Dasilva MD 05/14/2023 14:17:46
[2023-05-13 19:08] LABS: VBG Base Excess 1.2 mmol/L (-2.4-2.3); VBG HCO3 26.3 mmol/L (23-30); VBG Oxygen Saturation 99.7 % (50-70); VBG PH 7.38 mmol/L (7.31-7.41); VBG PO2 244.6 mmol/L (28-40); VBG Total CO2 27.6 mmol/L (23-27)
[2023-05-13 19:23] LABS: Microscopic, Urine URINE MICROSCOPIC (MICROSCOPIC)
[2023-05-13 19:25] LABS: Appearance,Urine CLEAR (Clear); Bilirubin,Urine Negative (Negative); Blood, Urine Negative (Negative); Color,Urine YELLOW (Yellow); Glucose,Urine (UA) Negative (Negative); Ketones,Urine Negative (Negative); Leukocyte Esterase,Urine 1+ (Negative); Nitrate,Urine Negative (Negative); Protein,Urine TRACE (Negative)
--- NOTE | 2023-05-13 19:44 | PC.NURSE ---
Observation admission to 203 with dx of uti,pna and sirs to service of the hospitalist per Nikki Salgado.
--- NOTE | 2023-05-13 19:57 | PC.NURSE ---
report called to marleny Medrano
[2023-05-13 20:07] LABS: Lymphocytes % 5 % (10-50); Microcytosis 1+; Monocytes % 2 % (2-9); Neutrophils % 93 % (42-76); Platelet Estimate Normal; Total Cells Counted 100
--- NOTE | 2023-05-13 20:19 | PC.NURSE ---
pt arrived to floor via stretcher @ 20:17
[2023-05-13 21:39] LABS: Coronavirus 19, PCR Not Detected (NotDetected); Influenza A, PCR Not Detected (NotDetected); Influenza B, PCR Not Detected (NotDetected)
--- NOTE | 2023-05-13 23:28 | EXP.HP ---
History of Present Illness *Admission Date: 05/13/23 *Reason for visit:: Fever *History of present illness: This is a 67-year-old female with past medical history of hypertension, hyperlipidemia, COPD on 4 L nasal cannula at home, CAD status post GA and stenting x 4 who presents emergency department today with complaints of fever and confusion. Patient was seen in the emergency department yesterday with complaints of abdominal pain and was diagnosed with urinary tract infection. She was discharged yesterday from the emergency department for UTI and placed on Macrobid. She presents today with worsening confusion, fever and continued abdominal pain. Daughter at bedside provides collateral and states that she has had worsening cough and congestion as well as adventitious lung sounds. Of note, patient was admitted approximately 2 weeks ago for possible appendicolith. At that time she was evaluated by surgery and deemed not surgical candidate and had an uneventful hospitalization. Today her CT scan does not show any appendicitis or acute bowel abnormalities. On arrival patient was noted to be febrile to 102 with heart rate in the 130s. She did have increase in white count from 6-11 since yesterday. Chest x-ray without acute mention of acute problem but does have notable coarse lung sounds on exam. Given this, she was treated with azithromycin and Rocephin and admitted to the hospitalist service for further evaluation and management. [facility] Disclaimer: The information contained in this section may have been updated after the patient was seen, as this information can be updated by other users. Medical History Anxiety Hampton's palsy CAD (coronary artery disease) Chronic pain Chronic respiratory failure with hypoxia COPD exacerbation COPD mixed type Depression Encounter for screening for malignant neoplasm of lung Family history of asthma H/O Hampton's palsy HLD (hyperlipidemia) HTN (hypertension) Hypertrophic obstructive cardiomyopathy Insomnia Lung nodule seen on imaging study PAD (peripheral artery disease) Presence of arterial stent PTSD (post-traumatic stress disorder) Pulmonary nodule Sinus tachycardia Smoking greater than 30 pack years SOB (shortness of breath) on exertion Vitamin D deficiency Surgical History S/P peripheral artery angioplasty with stent placement Family History Other Family history of hypertension Social History Smoking Status: Former smoker tobacco type: cigarettes packs per day: 1 second hand exposure: No alcohol intake: never substance use type: denies use current occupational status: retired Travel in the last 8 weeks: None household members: children and none housing: house lives independently: No Review of Systems Review of Systems Review of systems:: unable to obtain Review of systems (narrative): Patient with element of confusion on exam Meds Home Medications and Allergies Home Medications Medication Instructions Recorded Confirmed Type apixaban 5 mg tablet (Eliquis) 5 mg PO BID Blood Thinner/AFIB 02/17/23 05/14/23 History atorvastatin 10 mg tablet 10 mg PO HS Cholesterol 02/17/23 05/14/23 History metoprolol succinate 25 mg 25 mg PO DAILY High Blood Pressure 02/17/23 05/14/23 History tablet,extended release 24 hr fluticasone fur. 100 mcg-umeclid 1 ea inhalation DAILY #60 ea 03/16/23 05/14/23 Rx 62.5 mcg-vilant 25 mcg inhalat.powder (Trelegy Ellipta) clonazepam 1 mg tablet (Klonopin) 1 mg PO BID Anxiety #60 tabs 05/05/23 05/14/23 Rx nitrofurantoin macrocrystal 100 mg 100 mg PO BID 5 days #10 caps 05/12/23 05/14/23 Rx capsule pantoprazole 40 mg tablet,delayed 40 mg PO DAILY GERD 05/12/23 05/14/23 History release lisinopril 2.
[2023-05-14] VITALS (22 sets, daily range): BP systolic 124–153; BP diastolic 48–76; PULSE 68–123; RESP 16–121; TEMP 36.6–38; O2SAT 92–99; BMI 22.4
--- NOTE | 2023-05-14 02:00 | EXP.SEPSISRE ---
[facility] Tissue Perfusion Eval Sepsis Re-Evaluation Performed: Yes Date Performed: 05/14/23 Time Performed: 00:00
--- NOTE | 2023-05-14 06:04 | PC.NURSE ---
Patient new admit this shift. Slept most of this shift. Patient woke up around 0530 with complaints of nausea. hospitalist notified and PRN medication given. Patient remains on 4L NC at this time. All vitals WNL at this time. Bed alarm on, call ybarra and personal items in reach POC ongoing.
[2023-05-14 07:39] LABS: Basophils % 0.2 % (0.1-2.0); Eosinophils % 0.4 % (0.1-12.0); Lymphocytes # 0.3 K/mm3 (0.7-4.5); Lymphocytes % 3.5 % (10-50); Mean Corpuscular HGB Conc 29.2 g/dL (31.8-35.4); Mean Corpuscular Hemoglobin 21.2 pg (27.0-31.2); Mean Corpuscular Volume 72.7 fl (81-99); Mean Platelet Volume 8.3 fl (7.4-10.4); Monocytes # 0.1 K/mm3 (0.1-1.0); Monocytes % 1.4 % (1.7-9.3); Neutrophils # 7.4 K/mm3 (1.8-7.8); Neutrophils % 94.5 % (37.0-80.0); Platelet Count 203 K/mm3 (142-424); Red Blood Count 3.02 M/mm3 (4.20-5.40); Red Cell Distribution Width 18.9 % (11.5-17.5); White Blood Count 7.8 K/mm3 (4.8-10.8)
[2023-05-14 07:43] LABS: Chloride 110 mmol/L (98-107)
[2023-05-14 07:44] LABS: Sodium 141 mmol/L (136-145)
[2023-05-14 07:46] LABS: Blood Urea Nitrogen 15 mg/dl (7-17); Creatinine Clearance Estimated 47 mL/min (50-200); Estimated Glomerular Filt Rate 99 ml/min (>60); GFR (African American) 120 ML/MIN (>60)
[2023-05-14 07:47] LABS: Carbon Dioxide 30 mmol/L (22.0-30.0); Glucose 156 mg/dl (74-100)
[2023-05-14 08:58] LABS: Hemoglobin 6.4 g/dL (12.2-16.2)
[2023-05-14 08:59] LABS: MANUAL DIFFERENTIAL MANUAL DIFFERENTIAL (MANUAL DIFF)
[2023-05-14 10:23] LABS: Hypochromasia 2+; Lymphocytes % 2 % (10-50); Neutrophils % 98 % (42-76); Platelet Estimate Normal; Total Cells Counted 100
--- NOTE | 2023-05-14 14:44 | EXP.PN ---
Subjective *Date: 05/14/23 *Time: 14:44 Interval history: patient was seen and evaluated at the bedside. denies chest pain, shortness of breath, nausea, vomiting, abdominal pain. Patient does not have any complaints at this time. feels better overall Exam Data for Last 24 hours Vital signs and Labs for Last 24 Hours: Temp Pulse Resp BP Pulse Ox O2 Del Method O2 Flow Rate 98.2 F 113 H 24 130/55 L 97 Nasal Cannula 3 05/14/23 14:25 05/14/23 14:25 05/14/23 14:25 05/14/23 14:25 05/14/23 14:25 05/14/23 13:00 05/14/23 13:00 Laboratory Results - last 24 hr 05/13/23 18:19: WBC 11.8 H D, RBC 3.55 L, Hgb 7.7 L, Hct 25.2 L, MCV 71.0 L, MCH 21.6 L, MCHC 30.3 L, RDW 18.7 H, Plt Count 239, MPV 8.1, Neut % (Auto) 92.8 H, Lymph % (Auto) 3.4 L, [place] % (Auto) 2.8, Eos % (Auto) 0.9, Baso % (Auto) 0.1, Neut # (Auto) 11.0 H, Lymph # (Auto) 0.4 L, [place] # (Auto) 0.3, Eos # (Auto) 0.1, Baso # (Auto) 0.0, Total Counted 100, Neutrophils % (Manual) 93 H, Lymphocytes % (Manual) 5 L, Monocytes % (Manual) 2, Platelet Estimate Normal, Microcytosis 1+, PT 10.3, INR 0.95, Sodium 139, Potassium 4.1, Chloride 105, Carbon Dioxide 30, Anion Gap 8.1, BUN 15, Creatinine 0.80, Estimated Creat Clear 48, Estimated GFR 71, Est GFR ( Amer) 86, Glucose 137 H, Calcium 8.7, Magnesium 2.1, Total Bilirubin 0.6, AST 32 D, ALT 25, Alkaline Phosphatase 159 H, Total Protein 7.1, Albumin 3.8, Globulin 3.3 H, Albumin/Globulin Ratio 1.2 05/13/23 18:28: Lactate 1.0 05/13/23 18:31: VBG pH 7.38, VBG pCO2 45.0, VBG pO2 244.6 H, VBG HCO3 26.3, VBG Total CO2 27.6 H, VBG O2 Saturation 99.7 H, VBG Base Excess 1.2 05/13/23 19:16: Urine Color Yellow, Urine Appearance Clear, Urine pH 7.0, Ur Specific Reliance 1.010, Urine Protein Trace, Urine Glucose (UA) Negative, Urine Ketones Negative, Urine Blood Negative, Urine Nitrate Negative, Urine Bilirubin Negative, Urine Urobilinogen 1.0, Ur Leukocyte Esterase 1+ A, Urine RBC None, Urine WBC 5-10, Ur Squamous Epith Cells None, Urine Bacteria None 05/13/23 21:30: SARS-CoV-2 (PCR) Not detected, Influenza A Untype (PCR) Not detected, Influenza Type B (PCR) Not detected 05/14/23 06:28: WBC 7.8 D, RBC 3.02 L, Hgb 6.4 L*, Hct 22.0 L, MCV 72.7 L, MCH 21.2 L, MCHC 29.2 L, RDW 18.9 H, Plt Count 203, MPV 8.3, Neut % (Auto) 94.5 H, Lymph % (Auto) 3.5 L, [place] % (Auto) 1.4 L, Eos % (Auto) 0.4, Baso % (Auto) 0.2, Neut # (Auto) 7.4, Lymph # (Auto) 0.3 L, [place] # (Auto) 0.1, Eos # (Auto) 0.0, Baso # (Auto) 0.0, Total Counted 100, Neutrophils % (Manual) 98 H, Lymphocytes % (Manual) 2 L, Platelet Estimate Normal, Hypochromasia 2+, Sodium 141, Potassium 4.0, Chloride 110 H, Carbon Dioxide 30, Anion Gap 5.0, BUN 15, Creatinine 0.60 D, Estimated Creat Clear 47, Estimated GFR 99, Est GFR ( Amer) 120 D, Glucose 156 H, Calcium 8.0 L 05/14/23 11:16: Blood Type A Positive, Antibody Screen Negative, Crossmatch (AHG) See Detail I & O for Last 24 hours: Intake & Output 05/11/23 05/12/23 05/13/23 05/14/23 23:59 23:59 23:59 23:59 Intake Total 480 / 480 Output Total 300 / 300 Balance 180 / 180 Weight 57.334 kg 55.202 kg Constitutional Constitutional: no acute distress *Routine HEENT Exam Head: Present normocephalic Eye: Present EOMI and PERRL ENT: Present mucous membranes moist *Routine Neck Exam Neck: Present supple; Absent lymphadenopathy *Routine Respiratory Exam Respiratory: Present CTA bilaterally *Routine Cardiovascular Exam Cardiovascular: Present RRR *Routine Abdominal Exam Abdominal: Present soft and normoactive bowel sounds; Absent tenderness *Routine Extremities Exam Extremities: Absent cyanosis, clubbing or edema *Routine Skin Exam Skin: Present warm; Absent rash *Routine Neurological Exam Neurological: Present alert and oriented X3 Assessment and Plan *Assessment and plan (1) Sepsis: Status: Acute Qualifiers: Sepsis acute organ dysfunction status: without acute organ dysfunction Sepsis type: sepsis due
[2023-05-14 17:08] LABS: Hematocrit 25.3 % (37.0-47.0); Hemoglobin 7.9 g/dL (12.2-16.2)
--- NOTE | 2023-05-14 19:30 | PC.NURSE ---
PT IS RESTING IN BED. ALERT AND ORIENTED X3. PT HAS BEEN SLEEPING OF AND ON T/O THE SHIFT. TOLERATED BLOOD TRANSFUSION. O2 SATURATION HAS MAINTAINED 90-97% ON 3-4 L NC. LUNG SOUNDS HAVE SCATTERED WHEEZES. ABDOMEN SOFT/NON TENDER WITH ACTIVE BOWEL SOUNDS. ASSIST X1 TO GET UP TO THE BSC. WILL CONTINUE TO MONITOR.
[2023-05-15] VITALS (23 sets, daily range): BP systolic 128–150; BP diastolic 51–71; PULSE 106–130; RESP 18–36; TEMP 36.5–37.8; O2SAT 90–100; BMI 23.1
--- NOTE | 2023-05-15 03:11 | PC.NURSE ---
PATIENT C/O NOT BEING ABLE TO SLEEP. Nikki DUARTE N.P.NOTIFIED AND ORDER RECEIVED FOR TRAZODON.
--- NOTE | 2023-05-15 04:39 | PC.NURSE ---
HAS NOT SLEPT WELL. TRAZODONE HELPED SOME. WAS ABLE TO NAP AT SHORT INTERVALS. 02 SATS 94-97% ON 4LNC. RESPS 24-28. SINUS TACHYCARDIA ON TELE. DENIES PAIN. SOA ON MINIMAL EXERTION. AFEBRILE.
--- NOTE | 2023-05-15 10:04 | EXP.PULM.CON ---
History of Present Illness History of present illness: Ms. Hurst is a 59 atrial fibrillation hypertension dyslipidemia COPD on 4 L nasal cannula at baseline presented to the ER with subjective febrile episodes and confusion. Patient was recently presented to the ER and was discharged home on Macrobid for presumed UTI. [facility] Disclaimer: The information contained in this section may have been updated after the patient was seen, as this information can be updated by other users. Medical History Anxiety Hampton's palsy CAD (coronary artery disease) Chronic pain Chronic respiratory failure with hypoxia COPD exacerbation COPD mixed type Depression Encounter for screening for malignant neoplasm of lung Family history of asthma H/O Hampton's palsy HLD (hyperlipidemia) HTN (hypertension) Hypertrophic obstructive cardiomyopathy Insomnia Lung nodule seen on imaging study PAD (peripheral artery disease) Presence of arterial stent PTSD (post-traumatic stress disorder) Pulmonary nodule Sinus tachycardia Smoking greater than 30 pack years SOB (shortness of breath) on exertion Vitamin D deficiency Surgical History S/P peripheral artery angioplasty with stent placement Family History Other Family history of hypertension Social History Smoking Status: Former smoker tobacco type: cigarettes packs per day: 1 second hand exposure: No alcohol intake: never substance use type: denies use current occupational status: retired Travel in the last 8 weeks: None household members: children and none housing: house lives independently: No Review of Systems Review of Systems Review of systems:: unable to obtain Review of systems (narrative): Patient lethargic not responding appropriately verbal stimuli. Pulmonology Exam Inpatient Vital signs and Labs for Last 24 Hours: Temp Pulse Resp BP Pulse Ox O2 Del Method O2 Flow Rate 97.7 F 110 H 36 H 134/57 L 90 L Nasal Cannula 4 05/15/23 07:54 05/15/23 08:00 05/15/23 07:54 05/15/23 07:54 05/15/23 07:54 05/15/23 08:00 05/15/23 08:00 Laboratory Results - last 24 hr 05/14/23 06:28: Total Counted 100, Neutrophils % (Manual) 98 H, Lymphocytes % (Manual) 2 L, Platelet Estimate Normal, Hypochromasia 2+ 05/14/23 11:16: Blood Type A Positive, Antibody Screen Negative, Crossmatch (AHG) See Detail 05/14/23 16:45: Hgb 7.9 L D, Hct 25.3 L I & O for Labs for Last 24 Hours: Intake & Output 05/12/23 05/13/23 05/14/23 05/15/23 23:59 23:59 23:59 23:59 Intake Total 1270 / 2525 1671 / 1671 Output Total 300 / 300 Balance 970 / 2225 1671 / 1671 Weight 126 lb 6.4 oz 121 lb 11.2 oz 125 lb 6.4 oz Constitutional: Present severe distress Head: Present normocephalic and atraumatic ENT: Present normal exam, normal oropharynx and mucous membranes moist Neck: Present normal inspection and full ROM Respiratory: Present prolonged expiratory phase, respiratory distress, wheezes, diminished air movement and able to speak in complete sentences Cardiac: Present S1/S2, Tachycardia and radial pulses present GI: Present soft and distention; Absent tenderness or guarding Rectal (female): Present deferred (female): Present deferred Skin: Present intact; Absent cyanosis or jaundice Neuro: Absent alert, awake or oriented x 3 Extremities: Present normal inspection; Absent clubbing or cyanosis Psychiatric: Present normal affect and cooperative Meds Home Medications and Allergies Home Medications Medication Instructions Recorded Confirmed Type apixaban 5 mg tablet (Eliquis) 5 mg PO BID Blood Thinner/AFIB 02/17/23 05/14/23 History atorvastatin 10 mg tablet 10 mg PO HS Cholesterol 02/17/23 05/14/23 History metoprolol succinate 25 mg 25 mg PO DAILY High Blood
[2023-05-15 11:07] LABS: ABG Base Excess 0.7 mmol/L (-2.4-2.3); ABG HCO3 29.7 mmhg (22.0-26.0); ABG Oxygen Saturation 91 % (90-100); ABG PO2 73.4 mmhg (80-100); ABG TCO2 32.5 mmhg (23-27)
[2023-05-15 11:08] LABS: Allen's Test acceptable; Source Left Radial
[2023-05-15 11:09] LABS: ABG PH 7.14 mmol/L (7.35-7.45)
[2023-05-15 14:06] LABS: ABG Base Excess -1.6 mmol/L (-2.4-2.3); ABG HCO3 26.5 mmhg (22.0-26.0); ABG Oxygen Saturation 97 % (90-100); ABG PO2 98.4 mmhg (80-100); ABG TCO2 28.6 mmhg (23-27)
[2023-05-15 14:11] LABS: Allen's Test ACCEPTABLE; Oxygen 50 %; Pressure Support BIPAP 20/8; Source Left Radial; Vent Rate 22
[2023-05-15 14:12] LABS: ABG PCO2 69.8 mmhg (35.0-45.0)
--- NOTE | 2023-05-15 15:25 | PC.NURSE ---
Pt is alert to self. Has been confused and resistive to care this shift. Was placed on Bipap around 1100 this AM. Hand mitts placed for pt safety. Safety bed alarm active. Medications administered per aug. Call light withi reach. Family at bedside.
[2023-05-15 15:51] LABS: Basophils % 0.1 % (0.1-2.0); Eosinophils % 0.1 % (0.1-12.0); Hemoglobin 8.4 g/dL (12.2-16.2); Lymphocytes # 0.3 K/mm3 (0.7-4.5); Lymphocytes % 2.7 % (10-50); Mean Corpuscular HGB Conc 29.9 g/dL (31.8-35.4); Mean Corpuscular Hemoglobin 23.1 pg (27.0-31.2); Mean Corpuscular Volume 77.1 fl (81-99); Mean Platelet Volume 10.4 fl (7.4-10.4); Monocytes # 0.3 K/mm3 (0.1-1.0); Monocytes % 2.5 % (1.7-9.3); Neutrophils # 11.2 K/mm3 (1.8-7.8); Neutrophils % 94.6 % (37.0-80.0); Platelet Count 207 K/mm3 (142-424); Red Blood Count 3.63 M/mm3 (4.20-5.40); Red Cell Distribution Width 18.7 % (11.5-17.5); White Blood Count 11.8 K/mm3 (4.8-10.8)
[2023-05-15 15:53] LABS: MANUAL DIFFERENTIAL MANUAL DIFFERENTIAL (MANUAL DIFF)
[2023-05-15 16:03] LABS: Anion Gap 4.1 mEq/L (5-15); Blood Urea Nitrogen 14 mg/dl (7-17); Calcium 8.2 mg/dl (8.4-10.2); Carbon Dioxide 34 mmol/L (22.0-30.0); Chloride 110 mmol/L (98-107); Creatinine Clearance Estimated 48 mL/min (50-200); Estimated Glomerular Filt Rate 83 ml/min (>60); GFR (African American) 101 ML/MIN (>60); Glucose 140 mg/dl (74-100); Potassium 5.1 mmoL/L (3.5-5.1); Sodium 143 mmol/L (136-145)
--- NOTE | 2023-05-15 16:22 | EXP.SURG.CON ---
History of Present Illness *Admission Date: 05/13/23 *Reason for visit:: GI bleed, positive stool occult *History of present illness: Patient is a 67-year-old female with history of home oxygen dependent COPD, coronary artery disease with previous stenting and myocardial infarction on chronic anticoagulation therapy on Eliquis chronically, chronic arterial occlusive disease, hypertension, tobacco abuse, hypertrophic cardiomyopathy, PTSD, paroxysmal atrial fibrillation whom surgical consultation was placed today with Dr. Antony for GI bleed, positive stool occult. He had recently seen the patient during admission on 04/25/2023 at which time there was radiographic evidence of an appendicolith without appendicitis. At that time she was having generalized complaints of abdominal pain. There was no evidence of any acute appendicitis. And she was managed as an outpatient. In Dr. Antony's abscence I was made aware of the consultation this evening. Of note, during that admission her hemoglobin was 7.8. She has shown decreased hemoglobin for several months, since November. This is currently the patient's third hospital day for this admission. She had presented to the emergency department on 05/12/2023 complaining of abdominal pain all over for a few weeks. However, that time she had diffuse more significant pain. At that time her hemoglobin was 7.8. At that time the patient underwent a CT scan of the abdomen and pelvis which revealed normal appendix and otherwise unremarkable for any acute pathology. Urinalysis revealed positive nitrate and 5-10 white blood cells. She was treated with Macrobid and managed as an outpatient. Patient presented back to the emergency department about 24 hours later on 05/13/2023. She had arrived to the emergency department showing signs of sepsis with fever and tachycardia with diminished oxygen saturations. She was given fluids and antibiotics in the emergency department. She was noted to have leukocytosis she underwent thorough radiographic imaging. She was admitted for inpatient management for sepsis with pneumonia and urinary tract infection at that time on 05/13/2023. During this hospitalization she showed a decrease in her hemoglobin as low as 6.4 for which she was transfused a unit of packed red blood cells with posttransfusion hemoglobin of 7.9. Hemoglobin this afternoon is 8.4. There is no stool for Hemoccult during this hospitalization but she has a history of prior positive occult stool several months ago. Surgical consultation was ordered/requested this afternoon. Patient is on a regular diet. She has been transferred to stepdown for increasing oxygen requirements on BiPAP. [facility] Disclaimer: The information contained in this section may have been updated after the patient was seen, as this information can be updated by other users. Medical History Anxiety Hampton's palsy CAD (coronary artery disease) Chronic pain Chronic respiratory failure with hypoxia COPD exacerbation COPD mixed type Depression Encounter for screening for malignant neoplasm of lung Family history of asthma H/O Hampton's palsy HLD (hyperlipidemia) HTN (hypertension) Hypertrophic obstructive cardiomyopathy Insomnia Lung nodule seen on imaging study PAD (peripheral artery disease) Presence of arterial stent PTSD (post-traumatic stress disorder) Pulmonary nodule Sinus tachycardia Smoking greater than 30 pack years SOB (shortness of breath) on exertion Vitamin D deficiency Surgical History S/P peripheral artery angioplasty with stent placement Family History Other Family history of hypertension Social History Smoking Status: Former smoker tobacco type: cigarettes packs per day: 1 second hand exposure: No alcohol
--- NOTE | 2023-05-15 16:35 | EXP.PN ---
Subjective *Date: 05/15/23 *Time: 16:35 Interval history: patient was seen and evaluated at the bedside. denies chest pain, shortness of breath, nausea, vomiting, abdominal pain. Patient does not have any complaints at this time. feels better overall Exam Data for Last 24 hours Vital signs and Labs for Last 24 Hours: Temp Pulse Resp BP Pulse Ox O2 Del Method O2 Flow Rate 98.6 F 125 H 36 H 134/57 L 90 L BiPAP 6 05/15/23 16:00 05/15/23 14:50 05/15/23 07:54 05/15/23 07:54 05/15/23 07:54 05/15/23 15:00 05/15/23 11:00 FiO2 50 05/15/23 14:05 Laboratory Results - last 24 hr 05/13/23 21:30: RSV Nasal Swab Negative 05/14/23 11:16: Crossmatch (AHG) See Detail 05/14/23 16:45: Hgb 7.9 L D, Hct 25.3 L 05/15/23 10:28: Specimen Source Left radial, O2 % 6 lpm, ABG pH 7.14 L*, ABG pCO2 90.0 H, ABG pO2 73.4 L, ABG HCO3 29.7 H, ABG Total CO2 32.5 H, ABG O2 Saturation 91, ABG Base Excess 0.7, Herminio Test acceptable 05/15/23 14:02: Specimen Source Left radial, O2 % 50, ABG pH 7.20 L*, ABG pCO2 69.8 H, ABG pO2 98.4, ABG HCO3 26.5 H, ABG Total CO2 28.6 H, ABG O2 Saturation 97, ABG Base Excess -1.6, Herminio Test Acceptable, Vent Rate 22 05/15/23 15:42: WBC 11.8 H D, RBC 3.63 L, Hgb 8.4 L, Hct 28.0 L, MCV 77.1 L, MCH 23.1 L, MCHC 29.9 L, RDW 18.7 H, Plt Count 207, MPV 10.4, Neut % (Auto) 94.6 H, Lymph % (Auto) 2.7 L, [place] % (Auto) 2.5, Eos % (Auto) 0.1, Baso % (Auto) 0.1, Neut # (Auto) 11.2 H, Lymph # (Auto) 0.3 L, [place] # (Auto) 0.3, Eos # (Auto) 0.0, Baso # (Auto) 0.0, Sodium 143, Potassium 5.1 D, Chloride 110 H, Carbon Dioxide 34 H, Anion Gap 4.1 L, BUN 14, Creatinine 0.70, Estimated Creat Clear 48, Estimated GFR 83, Est GFR ( Amer) 101, Glucose 140 H, Calcium 8.2 L I & O for Last 24 hours: Intake & Output 05/12/23 05/13/23 05/14/23 05/15/23 23:59 23:59 23:59 23:59 Intake Total 1270 / 2525 217 / 217 Output Total 300 / 300 0 / 0 Balance 970 / 2225 2170 / 2170 Weight 57.334 kg 55.202 kg 56.88 kg Constitutional Constitutional: no acute distress *Routine HEENT Exam Head: Present normocephalic Eye: Present EOMI and PERRL ENT: Present mucous membranes moist *Routine Neck Exam Neck: Present supple; Absent lymphadenopathy *Routine Respiratory Exam Respiratory: Present CTA bilaterally *Routine Cardiovascular Exam Cardiovascular: Present RRR *Routine Abdominal Exam Abdominal: Present soft and normoactive bowel sounds; Absent tenderness *Routine Extremities Exam Extremities: Absent cyanosis, clubbing or edema *Routine Skin Exam Skin: Present warm; Absent rash *Routine Neurological Exam Neurological: Present alert and oriented X3 Assessment and Plan *Assessment and plan (1) Sepsis: Status: Acute Qualifiers: Sepsis acute organ dysfunction status: without acute organ dysfunction Sepsis type: sepsis due to unspecified organism Qualified Code(s): A41.9 - Sepsis, unspecified organism Category: Medical Code(s): A41.9 - Sepsis, unspecified organism (2) Acute UTI: Status: Acute Category: Medical Code(s): N39.0 - Urinary tract infection, site not specified (3) Pneumonia: Status: Acute Qualifiers: Laterality: left Lung location: lower lobe of lung Pneumonia type: due to unspecified organism Qualified Code(s): J18.9 - Pneumonia, unspecified organism Category: Medical Code(s): J18.9 - Pneumonia, unspecified organism (4) CAD (coronary artery disease): Status: Chronic Qualifiers: Coronary Disease-Associated Artery/Lesion type: [place] artery [place] vs. transplanted heart: [place] heart Associated angina: without angina Qualified Code(s): I25.10 - Atherosclerotic heart disease of [place] coronary artery without angina pectoris Category: Medical Code(s): I25.10 - Atherosclerotic heart disease of [place] coronary artery without angina pectoris Plan Patient is a 67-year-old female who presented to hospital
[2023-05-15 16:51] LABS: Lymphocytes % 8 % (10-50); Neutrophils % 92 % (42-76); Total Cells Counted 100
[2023-05-15 16:52] LABS: Microcytosis 1+; Platelet Estimate Normal
[2023-05-15 16:53] LABS: Hypochromasia 2+
--- NOTE | 2023-05-15 17:23 | PC.NURSE ---
pt sitting up in bed. pt alert to self, date, and where she is at this time. ls diminished t/o. pt currently on the bipap at 50%, IPAP-22 E-10. pt has been attempting to remove bipap mask. pt has been sinus tach on the monitor. abdomen soft, nontender, bs active. pt has brief and purewick in place at this time. call light w/i reach. bed alarm in place.
--- NOTE | 2023-05-15 17:31 | PC.NURSE ---
Dr. Hinkle at bedside to see patient, per MD Dr. Antony will see patient in the am.
[2023-05-16] VITALS (19 sets, daily range): BP systolic 108–196; BP diastolic 43–96; PULSE 87–121; RESP 14–28; TEMP 36.6–37.7; O2SAT 92–100; BMI 24.9; BMI 24.7
--- NOTE | 2023-05-16 04:57 | PC.NURSE ---
Shift Summary: Pt AOx person and time throughout shift; restless, combative, suspicious of healthcare team, and uncooperative throughout shift despite senior staff consultant's attempt to reorient and deescalate pt. Pt requiring 1:1 sitting throughout most of night d/t multiple attempts to leave bed and remove BiPAP despite reeducation. Pt attempted multiple times to remove BiPAP, despite oral care and rehydration breaks. Educated pt multiple times, pt too confused to understand. Pt requiring multiple PRN and scheduled medications to decrease agitation. BiPAP decreased to 35% FiO2, SpO2 97-100%. Other VSS, slightly tachycardic throughout shift. Unable to obtain stool sample this a.m. as it was smeared on pt's brief. Pt received bed bath and linen change this a.m., skin intact. Call light within reach and fall precautions implemented.
--- NOTE | 2023-05-16 06:14 | PC.NURSE ---
Pt attempted to remove BiPAP mask multiple times and climb out of bed on 0600 rounds. Educated pt on necessity of BiPAP, pt stated she needed to take it off. Notified RT of BiPAP use overnight and increasing pt agitation. Placed pt on 4 L NC (home O2), SpO2 96%. RT at bedside giving breathing tx, pt's agitation decreased at this time.
--- NOTE | 2023-05-16 06:38 | PC.NURSE ---
0635: Rounded on pt attempting to climb out of bed. Pt states she cannot breathe and needs to get up to pee. Explained to pt breathing tx just administered by RT and external catheter in place to reduce dyspnea on exertion. Pt states she needs something to calm me down. RN asked pt what she takes at home, pt stated cigarettes. Explained non-smoking facility rules and burn risk while on O2. PRN nicotine patch given. Pt continuing to breathe at 30 RR, SpO2 89-90% on 6 L NC, becoming more distressed. Pt currently refusing to wear BiPAP despite distress. 0640: Educated pt again for necessity for BiPAP, including risk of intubation and continued respiratory distress on NC. Pt agreed to be placed on BiPAP, SpO2 now 97% on 35% FiO2.
--- NOTE | 2023-05-16 08:25 | PC.NURSE ---
COURTESY NOTE: morning round completed on pt. pt denies needing assistance at this time. call amada within reach. Jason SRNA
--- NOTE | 2023-05-16 09:34 | EXP.PULM.PN ---
Subjective *Date: 05/16/23 *Time: 10:53 Interval history: No acute respiratory vents overnight. Patient refused BiPAP. Pulmonology Exam Inpatient Vital signs and Labs for Last 24 Hours: Temp Pulse Resp BP Pulse Ox O2 Del Method O2 Flow Rate 99.5 F 108 H 16 146/69 H 100 BiPAP 4 05/16/23 08:00 05/16/23 08:00 05/16/23 08:00 05/16/23 08:00 05/16/23 08:00 05/16/23 08:00 05/16/23 06:31 FiO2 35 05/16/23 04:00 Laboratory Results - last 24 hr 05/13/23 21:30: RSV Nasal Swab Negative 05/15/23 10:28: Specimen Source Left radial, O2 % 6 lpm, ABG pH 7.14 L*, ABG pCO2 90.0 H, ABG pO2 73.4 L, ABG HCO3 29.7 H, ABG Total CO2 32.5 H, ABG O2 Saturation 91, ABG Base Excess 0.7, Herminio Test acceptable 05/15/23 14:02: Specimen Source Left radial, O2 % 50, ABG pH 7.20 L*, ABG pCO2 69.8 H, ABG pO2 98.4, ABG HCO3 26.5 H, ABG Total CO2 28.6 H, ABG O2 Saturation 97, ABG Base Excess -1.6, Herminio Test Acceptable, Vent Rate 22 05/15/23 15:42: WBC 11.8 H D, RBC 3.63 L, Hgb 8.4 L, Hct 28.0 L, MCV 77.1 L, MCH 23.1 L, MCHC 29.9 L, RDW 18.7 H, Plt Count 207, MPV 10.4, Neut % (Auto) 94.6 H, Lymph % (Auto) 2.7 L, [place] % (Auto) 2.5, Eos % (Auto) 0.1, Baso % (Auto) 0.1, Neut # (Auto) 11.2 H, Lymph # (Auto) 0.3 L, [place] # (Auto) 0.3, Eos # (Auto) 0.0, Baso # (Auto) 0.0, Total Counted 100, Neutrophils % (Manual) 92 H, Lymphocytes % (Manual) 8 L, Platelet Estimate Normal, Hypochromasia 2+, Microcytosis 1+, Sodium 143, Potassium 5.1 D, Chloride 110 H, Carbon Dioxide 34 H, Anion Gap 4.1 L, BUN 14, Creatinine 0.70, Estimated Creat Clear 48, Estimated GFR 83, Est GFR ( Amer) 101, Glucose 140 H, Calcium 8.2 L I & O for Labs for Last 24 Hours: Intake & Output 05/13/23 05/14/23 05/15/23 05/16/23 23:59 23:59 23:59 23:59 Intake Total 1270 / 2525 2458 / 2698 1231 / 1231 Output Total 300 / 300 0 / 0 100 / 100 Balance 970 / 2225 2458 / 2698 1131 / 1131 Weight 126 lb 6.4 oz 121 lb 11.2 oz 125 lb 6.4 oz 135 lb 8 oz Constitutional: Present severe distress Head: Present normocephalic and atraumatic ENT: Present normal exam, normal oropharynx and mucous membranes moist Neck: Present normal inspection and full ROM Respiratory: Present prolonged expiratory phase, respiratory distress, wheezes and able to speak in complete sentences Cardiac: Present S1/S2, Tachycardia and radial pulses present GI: Present soft and distention; Absent tenderness or guarding Rectal (female): Present deferred (female): Present deferred Skin: Present intact; Absent cyanosis or jaundice Neuro: Present awake; Absent alert or oriented x 3 Extremities: Present normal inspection; Absent clubbing or cyanosis Psychiatric: Present normal affect and cooperative Assessment and Plan *Assessment and plan (1) Acute respiratory failure with hypoxia: Status: Resolved Category: Medical Code(s): J96.01 - Acute respiratory failure with hypoxia (2) Pneumonia: Status: Acute Qualifiers: Laterality: left Lung location: lower lobe of lung Pneumonia type: due to unspecified organism Qualified Code(s): J18.9 - Pneumonia, unspecified organism Category: Medical Code(s): J18.9 - Pneumonia, unspecified organism Plan Ms. Hurst is a 67 Y/OFemale , H/O atrial fibrillation hypertension dyslipidemia COPD on 4 L nasal cannula at baseline presented to the ER with subjective febrile episodes and confusion. Patient was recently presented to the ER and was discharged home on Macrobid for presumed UTI. Chest x-ray upon admission no dense consolidation noted. Concerning for airspace disease in the left lower medial lung graham. Chronic interstitial changes noted. On examination patient appeared lethargic, not responding appropriately verbal stimuli. Blood cultures pending. Continue to receive ceftriaxone azithromycin. Patient on initial examination altered not responding impulsively, ABG with severe hypercarbic respiratory failure initiated on BiPAP. Interval up
--- NOTE | 2023-05-16 09:35 | XR_ITS ---
FINAL REPORT CLINICAL HISTORY: Hypoxia COMPARISON: 05/13/2023 FINDINGS: The heart size is normal. The mediastinum is within normal limits. There are patchy basilar airspace infiltrates right greater than left. Right lower lobe airspace infiltrate is new from prior probably due to acute pneumonia. There is no pneumothorax. The bony thorax is intact. IMPRESSION: New right lower lobe airspace infiltrates probably due to acute pneumonia. Reviewed, Interpreted and Dictated by Regino Johnson MD Transcribed by Denis Herrera Authenticated and . [facility]
--- NOTE | 2023-05-16 10:08 | HMH.OTEV ---
OT Inpatient Evaluation Rehab OT IP Evaluation Start: 05/15/23 09:36 Freq: ONCE Status: Active Protocol: Document 05/16/23 09:52 MIRNA (Rec: 05/16/23 10:08 MIRNA [id number]) Rehab OT IP Assessment Subjective History This is a 67-year-old female with past medical history of hypertension, hyperlipidemia, COPD on 4 L nasal cannula at home, CAD status post TN and stenting x 4 who presents emergency department today with complaints of fever and confusion. Patient was seen in the emergency department yesterday with complaints of abdominal pain and was diagnosed with urinary tract infection. She was discharged yesterday from the emergency department for UTI and placed on Macrobid. She presents today with worsening confusion , fever and continued abdominal pain. Daughter at bedside provides collateral and states that she has had worsening cough and congestion as well as adventitious lung sounds. Of note, patient was admitted approximately 2 weeks ago for possible appendicolith. At that time she was evaluated by surgery and deemed not surgical candidate and had an uneventful hospitalization. Today her CT scan does not show any appendicitis or acute bowel abnormalities. On arrival patient was noted to be febrile to 102 with heart rate in the 130s. She did have increase in white count from 6-11 since yesterday. Chest x-ray without acute mention of acute problem but does have notable coarse lung sounds on exam. Given this, she was treated with azithromycin and Rocephin and
--- NOTE | 2023-05-16 10:25 | SW/DCPLANNER ---
Addendum entered by [facility] 05/19/23 08:58: The plan for this patient is to discharge to [facility] today. Per MD patient will not need a bi pap at facility. Addendum entered by [facility] 05/18/23 13:45: I have updated Diamond salvador/ Kishor and patient's daughter that the plan for this patient is to discharge to [facility] tomorrow. Diamond salvador/ Kishor stated that she can arrange for bi-pap to be at [facility] for tomorrow if needed. Addendum entered by [facility] 05/18/23 10:14: Per Minden modesto/ [facility] this patient has been approved SNF level of care. I will relay information to patient/family and MD. Addendum entered by [facility] 05/18/23 07:44: Per Diamond w/ [facility] precert is still pending at this time. Addendum entered by [facility] 05/16/23 14:32: Mona has now stated that patient does not have out of network benefits and they can not accept this patient. [facility] is the only facility at this point willing to start a precert on this patient. Patient is tearful and unsure of discharge plan at this point and needs time to think about it. I have attempted to contact ila salvador/ [facility] update: no answer at this time. I will update [facility]/ [facility] regarding precert. Addendum entered by [facility] 05/16/23 14:11: Patient/family are agreeable to placement at [facility]. I will continue to follow up w/ Mona regarding precert. Addendum entered by [facility] 05/16/23 13:53: Mona w/ [facility] is starting precert on this patient. Original Note: I spoke w/ patient and her daughter this AM regarding plans once medically stable for discharge. PT/OT evaluated patient and recommended SNF level of care. Patient is agreeable to placement to the following facilities (facilities are in network w/ patient's insurance): [facility], [facility], [facility] and [facility]. I will fax patient information to these facilities and continue to follow up w/ patient/family and MD. Discharge date is unknown at this time.
[2023-05-16 11:09] LABS: ABG Base Excess 4.4 mmol/L (-2.4-2.3); ABG HCO3 29.9 mmhg (22.0-26.0); ABG Oxygen Saturation 84 % (90-100); ABG PH 7.35 mmol/L (7.35-7.45); ABG TCO2 31.6 mmhg (23-27)
--- NOTE | 2023-05-16 12:06 | PC.NURSE ---
COURTESY NOTE: afternoon round completed on pt. pt denies needing assistance at this time. call amada within reach. Leonel SRNA
--- NOTE | 2023-05-16 13:03 | EXP.ACUTE.PN ---
Subjective *Date: 05/16/23 *Time: 18:37 Interval history: Patient irritable this morning but cooperative after having a candid conversation with her daughter. Transitioned off BiPAP and eating for nasal cannula oxygen. Sats in the high 90s. Complains of shortness of breath but definitely has an anxiety component. No nausea or vomiting, no chest pain. Tolerating p.o. intake this morning Medical Exam Vital signs and Labs for Last 24 Hours: Vital Signs Temp Pulse Pulse Resp BP Pulse Ox O2 Del Method 05/16/23 11:57 99.5 F 05/16/23 11:25 87 05/16/23 11:25 88 05/16/23 08:00 98 BiPAP 05/16/23 10:00 100 Nasal Cannula 05/16/23 10:47 Nasal Cannula 05/16/23 09:00 Nasal Cannula 05/16/23 10:00 107 H 14 172/80 H 100 BiPAP 05/16/23 08:00 109 H 16 146/89 H 98 BiPAP 05/16/23 08:00 108 H 16 146/69 H 100 BiPAP 05/16/23 08:00 99.5 F 05/16/23 06:31 Nasal Cannula 05/16/23 06:15 100 H 05/16/23 06:15 102 H 05/16/23 06:15 94 L Nasal Cannula 05/16/23 06:00 88 24 172/85 H 100 Nasal Cannula 05/16/23 04:00 97 H 05/16/23 04:55 BiPAP 05/16/23 04:00 99.8 F H 98 H 22 119/56 L 97 BiPAP 05/16/23 04:12 98 H 05/16/23 04:12 96 H 05/16/23 03:00 BiPAP 05/16/23 02:20 99 H 05/16/23 02:20 101 H 05/16/23 02:20 05/16/23 02:00 98 H 18 108/43 L 96 BiPAP 05/16/23 01:00 BiPAP 05/16/23 00:00 99.5 F 108 H 22 128/59 L 99 BiPAP 05/16/23 00:00 108 H 05/16/23 00:20 108 H 05/16/23 00:20 106 H 05/15/23 23:00 BiPAP 05/15/23 22:20 107 H 05/15/23 22:20 108 H 05/15/23 22:20 05/15/23 22:00 110 H 22 128/62 100 BiPAP 05/15/23 21:00 BiPAP 05/15/23 20:00 100.0 F H 110 H 24 128/62 98 BiPAP 05/15/23 20:00 110 H 18 98 BiPAP 05/15/23 20:00 110 H 05/15/23 20:24 114 H 05/15/23 20:24 115 H 05/15/23 20:23 100 BiPAP 05/15/23 18:35 114 H 05/15/23 18:35 113 H 05/15/23 18:35 100 BiPAP 05/15/23 18:35 05/15/23 18:26 BiPAP 05/15/23 16:00 130 H 05/15/23 17:32 116 H 24 148/71 H 100 BiPAP 05/15/23 16:00 107 H 96 BiPAP 05/15/23 17:00 BiPAP 05/15/23 16:46 121 H 05/15/23 16:46 121 H 05/15/23 16:46 05/15/23 16:46 100 BiPAP 05/15/23 16:00 98.6 F 05/15/23 15:00 BiPAP 05/15/23 14:05 05/15/23 14:50 125 H 05/15/23 14:50 124 H 05/15/23 14:49 124 H 05/15/23 14:49 122 H 05/15/23 14:49 123 H 05/15/23 14:49 119 H 05/15/23 14:48 122 H 05/15/23 14:48 121 H O2 Flow Rate FiO2 05/16/23 11:57 05/16/23 11:25 05/16/23 11:25 05/16/23 08:00 05/16/23 10:00 4 05/16/23 10:47 4 05/16/23 09:00 4 05/16/23 10:00 05/16/23 08:00 05/16/23 08:00 05/16/23 08:00 05/16/23 06:31 4 05/16/23 06:15 05/16/23 06:15 05/16/23 06:15 4 05/16/23 06:00 4 05/16/23 04:00 05/16/23 04:55 05/16/23 04:00 35 05/16/23 04:12 05/16/23 04:12 05/16/23 03:00 05/16/23 02:20 05/16/23 02:20 05/16/23 02:20 35 05/16/23 02:00 40 05/16/23 01:00 05/16/23 00:00 40 05/16/23 00:00 05/16/23 00:20 05/16/23 00:20 05/15/23 23:00 05/15/23 22:20 05/15/23 22:20 05/15/23 22:20 35 05/15/23 22:00 40 05/15/23 21:00 05/15/23 20:00 40 05/15/23 20:00 40 05/15/23 20:00 05/15/23 20:24 05/15/23 20:24 05/15/23 20:23 35 05/15/23 18:35 05/15/23 18:35 05/15/23 18:35 40 05/15/23 18:35 40 05/15/23 18:26 50 05/15/23 16:00 05/15/23 17:32 50 05/15/23 16:00 50 05/15/23 17:00 05/15/23 16:46 05/15/23 16:46 05/15/23 16:46 50 05/15/23 16:46 50 05/15/23 16:00 05/15/23 15:00 05/15/23 14:05 5
--- NOTE | 2023-05-16 13:57 | HMH.PTEV ---
Physical Therapy Evaluation Rehab PT IP Evaluation Start: 05/15/23 09:36 Freq: ONCE Status: Active Protocol: Document 05/16/23 09:56 JEANNINE (Rec: 05/16/23 10:21 JEANNINE [id number]) Subjective/History History History Patient is a 67 year old female admitted to [facility] secondary to pneumonia, UTI and SIRS. Patient currently lives at home with her daughter. Previously independent with ADL's/IADL's. Previously ambulatory with RW. Patient reports that her daughter is not around all of the time because of work. Patient appears to be slightly confused and angry this morning. Subjective Subjective I don't want to get up or do anything. New diagnosis of cancer in past 12 No months? Rehab PT IP Eval Objective Appearance Patient Behavior Combative,Confused Patient Orientation Person,Place,Birthday Difficulty following instructions none Speech Pattern Clear,Appropriate Ambulation Patient Able to Ambulate Yes Ambulation Observation IP General Gait Pattern Observation No Deviations/Normal Ambulation Distance (feet) 10 Ambulation Assistive Device Rolling Walker Ambulation Ability Contact Guard/Hand Hold Balance Ability to Arise Able, uses arms to help Sitting Balance Steady, safe Standing Balance Narrow stance w/o support Dynamic Sitting Balance Ability Normal Dynamic Standing Balance Ability Fair Transfers Bed Transfer Ability Independent Sit to Stand Bed Transfer Ability Contact Guard/Hand Hold ROM All Extremities PT ROM Status WFL MMT All Extremities PT MMT WFL Rehab PT IP prob,goals,plan Problems Date of Evaluation: 05/16/23 PT IP Problems Bed Mobility,Transfers,Gait, Balance,Self care,Safety Rehab Potential Rehab Potential Good Plan PT Intervention Plan Bed Mobility,Transfers,Gait, Balance,Self care,Therapeutic Exercise PT Plan Frequency BID Duration LOS Discharge Goals Bed Transfer Ability Supervision/Stand by Sit to Stand Chair Transfer Ability Supervision/Stand by Ambulation Distance (feet) 20 Discharge Plan PT Discharge Plan
[2023-05-16 15:06] LABS: ABG PCO2 55.1 mmhg (35.0-45.0); ABG PO2 49.1 mmhg (80-100); Allen's Test ACCEPTABLE; Oxygen 3LPM %; Source R RADIAL
[2023-05-16 18:56] LABS: Adenovirus,PCR Not Detected (NotDetected); Coronavirus 19, PCR Not Detected (NotDetected); Coronavirus 229E Not Detected (NotDetected); Coronavirus NL63 Not Detected (NotDetected); Coronavirus OC43 Not Detected (NotDetected); Coronovirus HKU1,PCR Not Detected (NotDetected); Human Metapneumovirus Not Detected (NotDetected); Influenza A, PCR Not Detected (NotDetected); Influenza AH1, 2009 Not Detected (NotDetected); Influenza AH1, PCR Not Detected (NotDetected); Influenza AH3,PCR Not Detected (NotDetected); Influenza B, PCR Not Detected (NotDetected); Parainfluenza 1, PCR Not Detected (NotDetected); Parainfluenza 2, PCR Not Detected (NotDetected); Parainfluenza 3, PCR Not Detected (NotDetected); Parainfluenza 4, PCR Not Detected (NotDetected); Respiratory Syncytial Virus Not Detected (NotDetected); Rhinovirus/Enterovirus Not Detected (NotDetected)
[2023-05-17] VITALS (23 sets, daily range): BP systolic 129–183; BP diastolic 63–96; PULSE 71–133; RESP 16–44; TEMP 36.4–37.1; O2SAT 85–100; BMI 24.8
--- NOTE | 2023-05-17 03:03 | PC.NURSE ---
Notified by respiratory that patient had taken her oxygen off and had O2 saturation in 50's. Patient in NAD; however, stated, I can't seem to catch my breath. Patient placed back on her 4L via NC and coming back up to >88%. Patient was A/O x4, but like her other monitoring devices she has not been compliant with, she just didn't want her oxygen on right now. Educated patient on importance and the acute need for her oxygen supplementation. Patient voiced understanding to this RN. Care continues.
--- NOTE | 2023-05-17 06:28 | PC.NURSE ---
End of shift summary: Patient becomes severely anxious and depressed with any interaction. She was medicated per MAR for anxiety and nausea. Patient is A/O x4 without any abnormal desaturation as previously noted by other shifts. However, at one point, she did remove her oxygen and desat- see previous note. She remains on 4L/NC currently with saturations >90%. NAD currently, but has been asking when she can go home. Patient's blood pressures have been higher than normal; however, this appears to be her normal. Her heart rate remains tachy 100-120 BPM which was also reported as her normal. VSS otherwise. Still using purewick with appropriate output.
--- NOTE | 2023-05-17 06:52 | PC.NURSE ---
placed back on bipap per nursing for respiratory distress
--- NOTE | 2023-05-17 06:55 | PC.NURSE ---
Nurse went to check on patient at 0645 and noted patient to be more somnolent, tachypneic 40-45 breaths/min, tachycardic 130's. Patient placed on her BiPAP with settings 22/10, rate 22, and FiO2 35%. Patient rebounded with decreased respiratory effort and heart rate. Charlotte LAWS hospitalist notified via phone at 0650, and notified WATER QUALITY ASSISTANT Hoa at 0651 for STAT ABG per phone order by VETO. Patient tolerating well at this time.
[2023-05-17 06:56] LABS: Chloride 109 mmol/L (98-107); Potassium 4.6 mmoL/L (3.5-5.1); Sodium 142 mmol/L (136-145)
[2023-05-17 06:58] LABS: Alanine Aminotransferase 23 U/L (12-78); Aspartate Amino Transferase 22 U/L (14-36); Blood Urea Nitrogen 18 mg/dl (7-17); Creatinine Clearance Estimated 52 mL/min (50-200); Estimated Glomerular Filt Rate 83 ml/min (>60); GFR (African American) 101 ML/MIN (>60)
[2023-05-17 06:59] LABS: Albumin Level 3.1 g/dl (3.5-5.0); Albumin/Globulin Ratio 1.1 (1.1-1.8); Alkaline Phosphatase 92 U/L (38-126); Anion Gap 1.6 mEq/L (5-15); Bilirubin,Total 0.4 mg/dl (0.2-1.3); Calcium 8.1 mg/dl (8.4-10.2); Carbon Dioxide 36 mmol/L (22.0-30.0); Globulin 2.7 g/dL (1.3-3.2); Glucose 109 mg/dl (74-100); Magnesium 2.3 mg/dl (1.6-2.3); Total Protein,Serum 5.8 g/dl (6.3-8.2)
[2023-05-17 07:11] LABS: ABG Base Excess 3.4 mmol/L (-2.4-2.3); ABG HCO3 29.9 mmhg (22.0-26.0); ABG Oxygen Saturation 92 % (90-100); ABG PH 7.29 mmol/L (7.35-7.45); ABG PO2 68.8 mmhg (80-100); ABG TCO2 31.9 mmhg (23-27)
[2023-05-17 07:15] LABS: Allen's Test acceptable; Oxygen 35% %; Tidal Volume 22/10
[2023-05-17 07:16] LABS: ABG PCO2 63.2 mmhg (35.0-45.0)
[2023-05-17 07:42] LABS: Basophils % 0.2 % (0.1-2.0); Hematocrit 24.1 % (37.0-47.0); Hemoglobin 7.6 g/dL (12.2-16.2); Lymphocytes # 0.8 K/mm3 (0.7-4.5); Lymphocytes % 11.4 % (10-50); Mean Corpuscular HGB Conc 31.4 g/dL (31.8-35.4); Mean Corpuscular Hemoglobin 23.5 pg (27.0-31.2); Mean Corpuscular Volume 74.8 fl (81-99); Mean Platelet Volume 8.7 fl (7.4-10.4); Monocytes # 0.5 K/mm3 (0.1-1.0); Monocytes % 6.4 % (1.7-9.3); Neutrophils # 5.8 K/mm3 (1.8-7.8); Platelet Count 196 K/mm3 (142-424); Red Blood Count 3.22 M/mm3 (4.20-5.40); Red Cell Distribution Width 19.3 % (11.5-17.5); White Blood Count 7.1 K/mm3 (4.8-10.8)
--- NOTE | 2023-05-17 08:27 | EXP.PHA.PN ---
Subjective *Date: 05/17/23 *Time: 08:27 Medical Exam Vital signs and Labs for Last 24 Hours: Vital Signs Temp Pulse Pulse Pulse Resp BP Pulse Ox 05/17/23 07:46 97.8 F 106 H 16 183/96 H 97 05/17/23 07:00 113 H 27 H 183/96 H 95 05/17/23 06:52 120 H 27 H 178/93 H 93 L 05/17/23 06:45 133 H 44 H 85 L 05/17/23 06:20 05/17/23 06:05 100 H 05/17/23 06:05 103 H 05/17/23 06:05 100 05/17/23 04:00 120 H 05/17/23 04:45 05/17/23 04:00 98.7 F 95 H 20 164/88 H 100 05/17/23 03:00 05/17/23 01:00 05/17/23 00:00 110 H 05/16/23 20:00 120 H 05/17/23 02:45 119 H 05/17/23 02:45 117 H 05/17/23 00:00 98.8 F 104 H 20 158/80 H 93 L 05/16/23 23:00 05/16/23 22:16 115 H 05/16/23 22:16 113 H 05/16/23 21:00 05/16/23 20:00 116 H 20 95 05/16/23 20:30 98.1 F 110 H 20 159/81 H 95 05/16/23 20:00 98.3 F 116 H 20 196/96 H 96 05/16/23 18:41 116 H 05/16/23 18:41 118 H 05/16/23 18:41 95 05/16/23 18:22 05/16/23 17:00 05/16/23 15:00 05/16/23 16:00 97 05/16/23 16:00 121 H 05/16/23 16:00 97.8 F 114 H 19 171/86 H 97 05/16/23 14:18 120 H 05/16/23 14:18 121 H 05/16/23 12:00 102 H 05/16/23 13:00 05/16/23 12:00 113 H 28 H 157/75 H 92 L 05/16/23 11:57 99.5 F 05/16/23 11:25 87 05/16/23 11:25 88 05/16/23 10:00 100 05/16/23 10:47 05/16/23 09:00 05/16/23 10:00 107 H 14 172/80 H 100 O2 Del Method O2 Flow Rate FiO2 05/17/23 07:46 BiPAP 05/17/23 07:00 BiPAP 35 05/17/23 06:52 BiPAP 35 05/17/23 06:45 Nasal Cannula 4 05/17/23 06:20 Nasal Cannula 4 05/17/23 06:05 05/17/23 06:05 05/17/23 06:05 Nasal Cannula 3 05/17/23 04:00 05/17/23 04:45 Nasal Cannula 4 05/17/23 04:00 Nasal Cannula 4 05/17/23 03:00 Nasal Cannula 4 05/17/23 01:00 Nasal Cannula 4 05/17/23 00:00 05/16/23 20:00 05/17/23 02:45 05/17/23 02:45 05/17/23 00:00 Nasal Cannula 4 05/16/23 23:00 Nasal Cannula 4 05/16/23 22:16 05/16/23 22:16 05/16/23 21:00 Nasal Cannula 4 05/16/23 20:00 Nasal Cannula 4 05/16/23 20:30 Nasal Cannula 4 05/16/23 20:00 Nasal Cannula 4 05/16/23 18:41 05/16/23 18:41 05/16/23 18:41 Nasal Cannula 3 05/16/23 18:22 Nasal Cannula 4 05/16/23 17:00 Nasal Cannula 4 05/16/23 15:00 Nasal Cannula 4 05/16/23 16:00 Nasal Cannula 4 05/16/23 16:00 05/16/23 16:00 Nasal Cannula 3 05/16/23 14:18 05/16/23 14:18 05/16/23 12:00 05/16/23 13:00 Nasal Cannula 4 05/16/23 12:00 Nasal Cannula 4 05/16/23 11:57 05/16/23 11:25 05/16/23 11:25 05/16/23 10:00 Nasal Cannula 4 05/16/23 10:47 Nasal Cannula 4 05/16/23 09:00 Nasal Cannula 4 05/16/23 10:00 BiPAP Intake and Output 05/16/23 05/17/23 05/17/23 23:59 07:59 15:59 Intake Total 800 / 800 Output Total 300 / 1400 600 / 600 Balance -300 / 1111 200 / 200 Intake: Intake, Oral Amount 200 / 200 Intake, Total IV Amount 600 / 600 0.9 % Sodium Chloride 1000ML 1, 600 / 600 000 ml @ 75 mls/hr IV .[id number] [facility] Rx#:[id number] Output: Output, Urine Amount 300 / 1400 600 / 600 Other: Number of Voids 0 Number of Unmeasured Voids 0 Number of Bowel Movements 1 Weight 61.235 kg Patient Weight 05/17/23 23:59 Weight 61.235 kg Laboratory Results - last 24 hr 05/16/23 10:53: Specimen Source R radial, O2 % 3lpm, ABG pH 7.35, ABG pCO2 55.1 H, ABG pO2 49.1 L, ABG HCO3 29.9 H, ABG Total CO2 31.6 H, ABG O2 Saturation 84 L*, ABG Base Excess 4.4 H, Herminio Test Acceptable 05/16/23 18:37: Chlamy pneumoniae PCR TNP, Adenovirus (PCR) Not detected, B. pertussis DNA (PCR) TNP, Coronavirus OC43 (PCR) Not detec
--- NOTE | 2023-05-17 09:40 | EXP.PULM.PN ---
Subjective *Date: 05/17/23 *Time: 11:56 Interval history: No acute respiratory vents overnight, patient noted worsening mentation and worsening hypercarbic respiratory failure this morning was initiated on BiPAP. Pulmonology Exam Inpatient Vital signs and Labs for Last 24 Hours: Temp Pulse Resp BP Pulse Ox O2 Del Method O2 Flow Rate 97.8 F 106 H 16 183/96 H 99 BiPAP 4 05/17/23 07:46 05/17/23 08:10 05/17/23 07:46 05/17/23 07:46 05/17/23 08:10 05/17/23 09:00 05/17/23 06:45 FiO2 35 05/17/23 08:10 Laboratory Results - last 24 hr 05/16/23 10:53: Specimen Source R radial, O2 % 3lpm, ABG pH 7.35, ABG pCO2 55.1 H, ABG pO2 49.1 L, ABG HCO3 29.9 H, ABG Total CO2 31.6 H, ABG O2 Saturation 84 L*, ABG Base Excess 4.4 H, Herminio Test Acceptable 05/16/23 18:37: Chlamy pneumoniae PCR TNP, Adenovirus (PCR) Not detected, B. pertussis DNA (PCR) TNP, Coronavirus OC43 (PCR) Not detected, Coronavirus HKU1 (PCR) Not detected, Coronavirus 229E (PCR) Not detected, SARS-CoV-2 (PCR) Not detected, Coronavirus NL63 (PCR) Not detected, Human Metapneumovir PCR Not detected, Influenza A (H1) PCR Not detected, Influ A (H1N1/09) PCR Not detected, Influenza A (H3) PCR Not detected, Influenza Type A (PCR) Not detected, Influenza Type B (PCR) Not detected, M. pneumoniae (PCR) TNP, Parainfluenza 1 (PCR) Not detected, Parainfluenza 2 (PCR) Not detected, Parainfluenza 3 (PCR) Not detected, Parainfluenza 4 (PCR) Not detected, RSV (PCR) Not detected, Entero/Rhino (PCR) Not detected 05/17/23 06:13: WBC 7.1 D, RBC 3.22 L, Hgb 7.6 L, Hct 24.1 L, MCV 74.8 L, MCH 23.5 L, MCHC 31.4 L, RDW 19.3 H, Plt Count 196, MPV 8.7, Neut % (Auto) 82.0 H, Lymph % (Auto) 11.4, [place] % (Auto) 6.4, Eos % (Auto) 0.0 L, Baso % (Auto) 0.2, Neut # (Auto) 5.8, Lymph # (Auto) 0.8, [place] # (Auto) 0.5, Eos # (Auto) 0.0, Baso # (Auto) 0.0, Sodium 142, Potassium 4.6, Chloride 109 H, Carbon Dioxide 36 H, Anion Gap 1.6 L, BUN 18 H D, Creatinine 0.70, Estimated Creat Clear 52, Estimated GFR 83, Est GFR ( Amer) 101, Glucose 109 H, Calcium 8.1 L, Magnesium 2.3, Total Bilirubin 0.4, AST 22, ALT 23, Alkaline Phosphatase 92, Total Protein 5.8 L, Albumin 3.1 L, Globulin 2.7, Albumin/Globulin Ratio 1.1 05/17/23 06:54: Specimen Source r radial, O2 % 35%, ABG pH 7.29 L, ABG pCO2 63.2 H, ABG pO2 68.8 L, ABG HCO3 29.9 H, ABG Total CO2 31.9 H, ABG O2 Saturation 92, ABG Base Excess 3.4 H, Herminio Test acceptable, [place] Volume 22/10 I & O for Labs for Last 24 Hours: Intake & Output 05/14/23 05/15/23 05/16/23 05/17/23 23:59 23:59 23:59 23:59 Intake Total 1270 / 2525 2458 / 2698 1711 / 2511 800 / 800 Output Total 300 / 300 0 / 0 800 / 1400 600 / 600 Balance 970 / 2225 2458 / 2698 911 / 1111 200 / 200 Weight 121 lb 11.2 oz 125 lb 6.4 oz 134 lb 7.712 oz 135 lb Microbiology Reports for the Last 24 Hours: Microbiology 05/13/23 19:16 Urine,Clean Catch Urine Culture - Final Constitutional: Present severe distress Head: Present normocephalic and atraumatic ENT: Present normal exam, normal oropharynx and mucous membranes moist Neck: Present normal inspection and full ROM Respiratory: Present prolonged expiratory phase, respiratory distress and able to speak in complete sentences; Absent wheezes Cardiac: Present S1/S2, Tachycardia and radial pulses present GI: Present soft and distention; Absent tenderness or guarding Rectal (female): Present deferred (female): Present deferred Skin: Present intact; Absent cyanosis or jaundice Neuro: Present awake; Absent alert or oriented x 3 Extremities: Present normal inspection; Absent clubbing or cyanosis Psychiatric: Present normal affect and cooperative Assessment and Plan *Assessment and plan (1) Acute respiratory failure with hypoxia: Status: Resolved Category: Medical Code(s): J96.01 - Acute respiratory failure with hypoxia (2) Pneumonia: Status: Acute Qualifiers: Laterality: left Lung location: lower lobe of lung Pneumo
--- NOTE | 2023-05-17 10:57 | EXP.ACUTE.PN ---
Subjective *Date: 05/17/23 *Time: 17:38 Interval history: Patient had an episode this morning with confusion. Found to be hypercapnic again. Resumed BiPAP for few hours with improvement in her mentation and blood gas. Sounding somewhat better on exam this morning. Afebrile. Denies chest pain, nausea, vomiting. Tolerating p.o. intake. More alert as the day is gone on. Working with therapy. Medical Exam Vital signs and Labs for Last 24 Hours: Vital Signs Temp Pulse Pulse Resp BP Pulse Ox O2 Del Method 05/17/23 10:26 114 H 05/17/23 10:26 112 H 05/17/23 08:10 106 H 99 BiPAP 05/17/23 09:00 BiPAP 05/17/23 08:00 99 BiPAP 05/17/23 08:00 73 05/17/23 07:46 97.8 F 106 H 16 183/96 H 97 BiPAP 05/17/23 07:00 113 H 27 H 183/96 H 95 BiPAP 05/17/23 06:52 120 H 27 H 178/93 H 93 L BiPAP 05/17/23 06:45 133 H 44 H 85 L Nasal Cannula 05/17/23 06:20 Nasal Cannula 05/17/23 06:05 100 H 05/17/23 06:05 103 H 05/17/23 06:05 100 Nasal Cannula 05/17/23 04:00 120 H 05/17/23 04:45 Nasal Cannula 05/17/23 04:00 98.7 F 95 H 20 164/88 H 100 Nasal Cannula 05/17/23 03:00 Nasal Cannula 05/17/23 01:00 Nasal Cannula 05/17/23 00:00 110 H 05/16/23 20:00 120 H 05/17/23 02:45 119 H 05/17/23 02:45 117 H 05/17/23 00:00 98.8 F 104 H 20 158/80 H 93 L Nasal Cannula 05/16/23 23:00 Nasal Cannula 05/16/23 22:16 115 H 05/16/23 22:16 113 H 05/16/23 21:00 Nasal Cannula 05/16/23 20:00 116 H 20 95 Nasal Cannula 05/16/23 20:30 98.1 F 110 H 20 159/81 H 95 Nasal Cannula 05/16/23 20:00 98.3 F 116 H 20 196/96 H 96 Nasal Cannula 05/16/23 18:41 116 H 05/16/23 18:41 118 H 05/16/23 18:41 95 Nasal Cannula 05/16/23 18:22 Nasal Cannula 05/16/23 17:00 Nasal Cannula 05/16/23 15:00 Nasal Cannula 05/16/23 16:00 97 Nasal Cannula 05/16/23 16:00 121 H 05/16/23 16:00 97.8 F 114 H 19 171/86 H 97 Nasal Cannula 05/16/23 14:18 120 H 05/16/23 14:18 121 H 05/16/23 12:00 102 H 05/16/23 13:00 Nasal Cannula 05/16/23 12:00 113 H 28 H 157/75 H 92 L Nasal Cannula 05/16/23 11:57 99.5 F 05/16/23 11:25 87 05/16/23 11:25 88 O2 Flow Rate FiO2 05/17/23 10:26 05/17/23 10:26 05/17/23 08:10 35 05/17/23 09:00 05/17/23 08:00 35 05/17/23 08:00 05/17/23 07:46 05/17/23 07:00 35 05/17/23 06:52 35 05/17/23 06:45 4 05/17/23 06:20 4 05/17/23 06:05 05/17/23 06:05 05/17/23 06:05 3 05/17/23 04:00 05/17/23 04:45 4 05/17/23 04:00 4 05/17/23 03:00 4 05/17/23 01:00 4 05/17/23 00:00 05/16/23 20:00 05/17/23 02:45 05/17/23 02:45 05/17/23 00:00 4 05/16/23 23:00 4 05/16/23 22:16 05/16/23 22:16 05/16/23 21:00 4 05/16/23 20:00 4 05/16/23 20:30 4 05/16/23 20:00 4 05/16/23 18:41 05/16/23 18:41 05/16/23 18:41 3 05/16/23 18:22 4 05/16/23 17:00 4 05/16/23 15:00 4 05/16/23 16:00 4 05/16/23 16:00 05/16/23 16:00 3 05/16/23 14:18 05/16/23 14:18 05/16/23 12:00 05/16/23 13:00 4 05/16/23 12:00 4 05/16/23 11:57 05/16/23 11:25 05/16/23 11:25 Intake and Output 05/16/23 05/17/23 05/17/23 23:59 07:59 15:59 Intake Total 800 / 800 Output Total 300 / 1400 600 / 600 Balance -300 / 1111 200 / 200 Intake: Intake, Oral Amount 200 / 200 Intake, Total IV Amount 600 / 600 0.9 % Sodium Chloride 1000ML 1, 600 / 600 000 ml @ 75 mls/hr IV [id number] Rx#:[id number] Output: Output, Urine Amount 300 / 1400 600 / 600 Other: Number of Voids 0 Number of Unmeasured Voids 0 Number of Bowel Movements 1 Weight 61.235 kg Patient Weight 05/17/23 23:59 Weight 61.235 kg Laborat
[2023-05-17 12:57] LABS: ABG Base Excess 6.9 mmol/L (-2.4-2.3); ABG HCO3 32.4 mmhg (22.0-26.0); ABG Oxygen Saturation 97 % (90-100); ABG PH 7.36 mmol/L (7.35-7.45); ABG PO2 97.4 mmhg (80-100); ABG TCO2 34.3 mmhg (23-27)
--- NOTE | 2023-05-17 13:09 | EXP.SURG.PN ---
Subjective Narrative: No definitive evidence of gastrointestinal hemorrhage. Exam Data for Last 24 hours Vital signs and Labs for Last 24 Hours: Temp Pulse Resp BP Pulse Ox O2 Del Method O2 Flow Rate 97.9 F 103 H 24 162/79 H 95 Nasal Cannula 3 05/17/23 11:41 05/17/23 12:00 05/17/23 11:41 05/17/23 11:41 05/17/23 11:41 05/17/23 11:41 05/17/23 11:41 FiO2 35 05/17/23 08:10 Laboratory Results - last 24 hr 05/16/23 10:53: Specimen Source R radial, O2 % 3lpm, ABG pH 7.35, ABG pCO2 55.1 H, ABG pO2 49.1 L, ABG HCO3 29.9 H, ABG Total CO2 31.6 H, ABG O2 Saturation 84 L*, ABG Base Excess 4.4 H, Herminio Test Acceptable 05/16/23 18:37: Chlamy pneumoniae PCR TNP, Adenovirus (PCR) Not detected, B. pertussis DNA (PCR) TNP, Coronavirus OC43 (PCR) Not detected, Coronavirus HKU1 (PCR) Not detected, Coronavirus 229E (PCR) Not detected, SARS-CoV-2 (PCR) Not detected, Coronavirus NL63 (PCR) Not detected, Human Metapneumovir PCR Not detected, Influenza A (H1) PCR Not detected, Influ A (H1N1/09) PCR Not detected, Influenza A (H3) PCR Not detected, Influenza Type A (PCR) Not detected, Influenza Type B (PCR) Not detected, M. pneumoniae (PCR) TNP, Parainfluenza 1 (PCR) Not detected, Parainfluenza 2 (PCR) Not detected, Parainfluenza 3 (PCR) Not detected, Parainfluenza 4 (PCR) Not detected, RSV (PCR) Not detected, Entero/Rhino (PCR) Not detected 05/17/23 06:13: WBC 7.1 D, RBC 3.22 L, Hgb 7.6 L, Hct 24.1 L, MCV 74.8 L, MCH 23.5 L, MCHC 31.4 L, RDW 19.3 H, Plt Count 196, MPV 8.7, Neut % (Auto) 82.0 H, Lymph % (Auto) 11.4, [place] % (Auto) 6.4, Eos % (Auto) 0.0 L, Baso % (Auto) 0.2, Neut # (Auto) 5.8, Lymph # (Auto) 0.8, [place] # (Auto) 0.5, Eos # (Auto) 0.0, Baso # (Auto) 0.0, Sodium 142, Potassium 4.6, Chloride 109 H, Carbon Dioxide 36 H, Anion Gap 1.6 L, BUN 18 H D, Creatinine 0.70, Estimated Creat Clear 52, Estimated GFR 83, Est GFR ( Amer) 101, Glucose 109 H, Calcium 8.1 L, Magnesium 2.3, Total Bilirubin 0.4, AST 22, ALT 23, Alkaline Phosphatase 92, Total Protein 5.8 L, Albumin 3.1 L, Globulin 2.7, Albumin/Globulin Ratio 1.1 05/17/23 06:54: Specimen Source r radial, O2 % 35%, ABG pH 7.29 L, ABG pCO2 63.2 H, ABG pO2 68.8 L, ABG HCO3 29.9 H, ABG Total CO2 31.9 H, ABG O2 Saturation 92, ABG Base Excess 3.4 H, Herminio Test acceptable, [place] Volume 22/10 I & O for Last 24 hours: Intake & Output 05/15/23 05/16/23 05/17/23 05/18/23 11:59 11:59 11:59 11:59 Intake Total 2581 / 2581 2017 1280 / 1280 120 / 120 Output Total 0 / 0 500 / 500 900 / 900 Balance 2581 / 2581 1518 / 1518 380 / 380 120 / 120 Weight 125 lb 6.4 oz 135 lb 8 oz 135 lb Microbiology Reports for the Last 24 Hours: Microbiology 05/13/23 19:00 Blood Blood Culture - Preliminary 05/13/23 18:31 Blood Blood Culture - Preliminary 05/13/23 19:16 Urine,Clean Catch Urine Culture - Final Constitutional Constitutional: no acute distress *Routine Respiratory Exam Respiratory: Absent patient mechanically ventilated *Routine Cardiovascular Exam Comments: Mildly tachycardic Progress Note: A&P Assessment and plan (1) Anemia: Status: Chronic Assessment and plan: No definitive evidence of acute gastrointestinal hemorrhage. Continue proton pump inhibition Given the patient's comorbid conditions the risk of sedation for endoscopic evaluation currently outweigh any benefit Ongoing consideration of endoscopic evaluation if/when patient's overall medical status improves Transfuse if/when needed (2) Acute respiratory failure with hypoxia: Status: Acute Assessment and plan: Continue management as per primary service and pulmonology (3) Pneumonia: Status: Acute (4) COPD exacerbation: Status: Acute (5) Respiratory failure with hypoxia and hypercapnia: Status: Acute
[2023-05-17 13:24] LABS: ABG PCO2 59.4 mmhg (35.0-45.0); Allen's Test ACCEPTABLE; Oxygen 3LPM %; Source Left Radial
--- NOTE | 2023-05-17 16:28 | PC.NURSE ---
1545 pt noted to be yelling for assistance. upon entering the room, pt states that she is having trouble breathing at this time. pt also states that her stomach is hurting. pt o2 was noted to be sating 87% on 2lpm. pt was coached through deep breathing techniques, offered a breathing treatment and offered to be placed on the bipap to help with her shortness of breath. she was also offered tylenol for her pain, which is the only medication on order for pain at this time. pt stated that she would like a breathing treatment. RT called and breathing treatment requested at 1550. 1600 pt soa while awaiting breathing treatment and she was agreeable to being placed on the bipap. RT at bedside at 1610 and fio2 settings adjusted to 35%. current bipap settings are 22/10 i/e. 22 rr, and 35% fio2. lungs contain scattered rhonchi and are diminished. bowel sounds are active in all quads.
[2023-05-18] VITALS (16 sets, daily range): BP systolic 144–179; BP diastolic 77–85; PULSE 85–112; RESP 20–26; TEMP 36.6–36.8; O2SAT 90–99; BMI 24.9
--- NOTE | 2023-05-18 04:40 | PC.NURSE ---
Patient has rested intermittently thus far in shift. Patient has tolerated bipap well with 02 sats 97-98%. Beginning of shift while patient was taking evening medication removed bipap and patient's O2 dropped to low 80's. Patient recovered well after bipap was placed back on patient. No anxiety seen thus far in shift. Patient has not c/o of any pain this shift. Patient is voiding per purewick with no issues. No BM so far in shift. Call light within reach. Bed alarm remains on.
[2023-05-18 07:25] LABS: Chloride 105 mmol/L (98-107)
[2023-05-18 07:26] LABS: Potassium 4.3 mmoL/L (3.5-5.1); Sodium 140 mmol/L (136-145)
[2023-05-18 07:28] LABS: Alanine Aminotransferase 24 U/L (12-78); Alkaline Phosphatase 95 U/L (38-126); Aspartate Amino Transferase 26 U/L (14-36); Bilirubin,Total 0.4 mg/dl (0.2-1.3); Blood Urea Nitrogen 26 mg/dl (7-17); Creatinine Clearance Estimated 52 mL/min (50-200); Estimated Glomerular Filt Rate 83 ml/min (>60); GFR (African American) 101 ML/MIN (>60)
[2023-05-18 07:29] LABS: Albumin Level 3.2 g/dl (3.5-5.0); Albumin/Globulin Ratio 1.2 (1.1-1.8); Anion Gap 3.3 mEq/L (5-15); Calcium 8.4 mg/dl (8.4-10.2); Carbon Dioxide 36 mmol/L (22.0-30.0); Globulin 2.7 g/dL (1.3-3.2); Glucose 129 mg/dl (74-100); Magnesium 2.3 mg/dl (1.6-2.3); Total Protein,Serum 5.9 g/dl (6.3-8.2)
[2023-05-18 07:42] LABS: Basophils % 0.1 % (0.1-2.0); Eosinophils % 0.2 % (0.1-12.0); Hemoglobin 7.7 g/dL (12.2-16.2); Lymphocytes # 0.5 K/mm3 (0.7-4.5); Lymphocytes % 10.8 % (10-50); Mean Corpuscular HGB Conc 31.2 g/dL (31.8-35.4); Mean Corpuscular Hemoglobin 23.7 pg (27.0-31.2); Mean Corpuscular Volume 75.8 fl (81-99); Mean Platelet Volume 9.8 fl (7.4-10.4); Monocytes # 0.1 K/mm3 (0.1-1.0); Neutrophils # 3.7 K/mm3 (1.8-7.8); Platelet Count 236 K/mm3 (142-424); Red Blood Count 3.25 M/mm3 (4.20-5.40); Red Cell Distribution Width 20.2 % (11.5-17.5); White Blood Count 4.3 K/mm3 (4.8-10.8)
[2023-05-18 07:55] LABS: Hematocrit 24.6 % (37.0-47.0)
[2023-05-18 07:56] LABS: MANUAL DIFFERENTIAL MANUAL DIFFERENTIAL (MANUAL DIFF)
[2023-05-18 08:42] LABS: Lymphocytes % 8 % (10-50); Neutrophils % 92 % (42-76); Total Cells Counted 100
[2023-05-18 08:45] LABS: Anisocytosis 2+; Hypochromasia 3+; Microcytosis 3+; Platelet Estimate Normal
--- NOTE | 2023-05-18 09:54 | EXP.ACUTE.PN ---
Subjective *Date: 05/18/23 *Time: 09:54 Medical Exam Vital signs and Labs for Last 24 Hours: Vital Signs Temp Pulse Pulse Resp BP Pulse Ox O2 Del Method 05/18/23 08:07 BiPAP 05/18/23 08:00 BiPAP 05/18/23 07:51 98.2 F 110 H 22 179/85 H 94 L Nasal Cannula 05/18/23 06:56 Nasal Cannula 05/18/23 06:34 99 H 05/18/23 06:34 97 H 05/18/23 05:00 BiPAP 05/18/23 04:00 97.9 F 85 22 144/77 H 98 BiPAP 05/18/23 04:00 90 05/18/23 00:00 100 H 05/18/23 03:21 95 BiPAP 05/18/23 03:00 BiPAP 05/18/23 01:22 97 H 05/18/23 01:22 100 H 05/18/23 01:22 05/18/23 01:00 BiPAP 05/17/23 23:48 98.0 F 103 H 24 148/78 H 100 Nasal Cannula 05/17/23 23:00 Nasal Cannula 05/17/23 20:00 100 H 05/17/23 21:00 BiPAP 05/17/23 21:39 94 H 05/17/23 21:39 102 H 05/17/23 21:39 05/17/23 20:00 105 H 98 BiPAP 05/17/23 19:41 97.6 F 100 H 22 129/63 97 BiPAP 05/17/23 18:45 BiPAP 05/17/23 18:33 71 05/17/23 18:33 75 05/17/23 18:33 96 BiPAP 05/17/23 18:33 05/17/23 17:42 91 H 22 142/65 H 95 BiPAP 05/17/23 17:00 BiPAP 05/17/23 17:00 96 BiPAP 05/17/23 16:00 105 H 05/17/23 16:00 98.1 F 99 H 21 168/67 H 95 Room Air 05/17/23 16:09 05/17/23 15:08 Nasal Cannula 05/17/23 13:37 115 H 05/17/23 13:37 112 H 05/17/23 13:00 Nasal Cannula 05/17/23 12:00 103 H 05/17/23 11:00 Nasal Cannula 05/17/23 11:41 97.9 F 108 H 24 162/79 H 95 Nasal Cannula 05/17/23 10:26 114 H 05/17/23 10:26 112 H O2 Flow Rate FiO2 05/18/23 08:07 05/18/23 08:00 05/18/23 07:51 4 05/18/23 06:56 4 05/18/23 06:34 05/18/23 06:34 05/18/23 05:00 05/18/23 04:00 05/18/23 04:00 05/18/23 00:00 05/18/23 03:21 35 05/18/23 03:00 05/18/23 01:22 05/18/23 01:22 05/18/23 01:22 35 05/18/23 01:00 05/17/23 23:48 4 05/17/23 23:00 4 05/17/23 20:00 05/17/23 21:00 05/17/23 21:39 05/17/23 21:39 05/17/23 21:39 35 05/17/23 20:00 35 05/17/23 19:41 05/17/23 18:45 05/17/23 18:33 05/17/23 18:33 05/17/23 18:33 35 05/17/23 18:33 35 05/17/23 17:42 35 05/17/23 17:00 05/17/23 17:00 35 05/17/23 16:00 05/17/23 16:00 05/17/23 16:09 35 05/17/23 15:08 4 05/17/23 13:37 05/17/23 13:37 05/17/23 13:00 4 05/17/23 12:00 05/17/23 11:00 4 05/17/23 11:41 3 05/17/23 10:26 05/17/23 10:26 Intake and Output 05/17/23 05/18/23 05/18/23 23:59 07:59 15:59 Intake Total 340 / 1260 60 / 60 Output Total 750 / 1350 150 / 150 Balance -410 / -90 -90 / -90 Intake: Intake, Oral Amount 240 / 560 60 / 60 Intake, Total IV Amount 100 / 700 Ceftriaxone Sodium 1 gm In 0.9 100 / 100 % Sodium Chloride 50 ml @ 100 mls/hr IV Q24H [facility] Rx#:[id number] Output: Output, Urine Amount 750 / 1350 150 / 150 Other: Number of Voids 1 Number of Unmeasured Voids 0 0 Weight 61.507 kg Patient Weight 05/18/23 23:59 Weight 61.507 kg Laboratory Results - last 24 hr 05/17/23 12:55: Specimen Source Left radial, O2 % 3lpm, ABG pH 7.36, ABG pCO2 59.4 H, ABG pO2 97.4, ABG HCO3 32.4 H, ABG Total CO2 34.3 H, ABG O2 Saturation 97, ABG Base Excess 6.9 H, Herminio Test Acceptable 05/18/23 06:27: WBC 4.3 L D, RBC 3.25 L, Hgb 7.7 L, Hct 24.6 L, MCV 75.8 L, MCH 23.7 L, MCHC 31.2 L, RDW 20.2 H, Plt Count 236, MPV 9.8, Neut % (Auto) 87.0 H, Lymph % (Auto) 10.8, [place] % (Auto) 2.0, Eos % (Auto) 0.2, Baso % (Auto) 0.1, Neut # (Auto) 3.7, Lymph # (Auto) 0.5 L, [place] # (Auto) 0.1, Eos # (Auto) 0.0, Baso # (Auto) 0.0, Total Counted 100, Neutrophils % (Manual) 92 H, Lymphocytes % (Manual) 8 L, Platelet Estimate Normal, Hypochromasia 3+, Anisocytosis 2+, Microcytosis 3+, Sodium 140, [place]
--- NOTE | 2023-05-18 10:11 | EXP.PULM.PN ---
Subjective *Date: 05/18/23 *Time: 11:21 Interval history: No acute respiratory events overnight. Patient used her BiPAP Pulmonology Exam Inpatient Vital signs and Labs for Last 24 Hours: Temp Pulse Resp BP Pulse Ox O2 Del Method O2 Flow Rate 98.2 F 110 H 22 179/85 H 94 L BiPAP 4 05/18/23 07:51 05/18/23 07:51 05/18/23 07:51 05/18/23 07:51 05/18/23 07:51 05/18/23 08:07 05/18/23 07:51 FiO2 35 05/18/23 03:21 Laboratory Results - last 24 hr 05/17/23 12:55: Specimen Source Left radial, O2 % 3lpm, ABG pH 7.36, ABG pCO2 59.4 H, ABG pO2 97.4, ABG HCO3 32.4 H, ABG Total CO2 34.3 H, ABG O2 Saturation 97, ABG Base Excess 6.9 H, Herminio Test Acceptable 05/18/23 06:27: WBC 4.3 L D, RBC 3.25 L, Hgb 7.7 L, Hct 24.6 L, MCV 75.8 L, MCH 23.7 L, MCHC 31.2 L, RDW 20.2 H, Plt Count 236, MPV 9.8, Neut % (Auto) 87.0 H, Lymph % (Auto) 10.8, [place] % (Auto) 2.0, Eos % (Auto) 0.2, Baso % (Auto) 0.1, Neut # (Auto) 3.7, Lymph # (Auto) 0.5 L, [place] # (Auto) 0.1, Eos # (Auto) 0.0, Baso # (Auto) 0.0, Total Counted 100, Neutrophils % (Manual) 92 H, Lymphocytes % (Manual) 8 L, Platelet Estimate Normal, Hypochromasia 3+, Anisocytosis 2+, Microcytosis 3+, Sodium 140, Potassium 4.3, Chloride 105, Carbon Dioxide 36 H, Anion Gap 3.3 L, BUN 26 H D, Creatinine 0.70, Estimated Creat Clear 52, Estimated GFR 83, Est GFR ( Amer) 101, Glucose 129 H, Calcium 8.4, Magnesium 2.3, Total Bilirubin 0.4, AST 26, ALT 24, Alkaline Phosphatase 95, Total Protein 5.9 L, Albumin 3.2 L, Globulin 2.7, Albumin/Globulin Ratio 1.2 I & O for Labs for Last 24 Hours: Intake & Output 05/15/23 05/16/23 05/17/23 05/18/23 23:59 23:59 23:59 23:59 Intake Total 2458 / 2698 1711 / 2511 1260 / 1260 60 / 60 Output Total 0 / 0 800 / 1400 1350 / 1350 150 / 150 Balance 2458 / 2698 911 / 1111 -90 / -90 -90 / -90 Weight 125 lb 6.4 oz 134 lb 7.712 oz 135 lb 135 lb 9.6 oz Microbiology Reports for the Last 24 Hours: Microbiology 05/13/23 18:31 Blood Blood Culture - Preliminary 05/13/23 19:00 Blood Blood Culture - Preliminary 05/13/23 19:16 Urine,Clean Catch Urine Culture - Final Constitutional: Present moderate distress Head: Present normocephalic and atraumatic ENT: Present normal exam, normal oropharynx and mucous membranes moist Neck: Present normal inspection and full ROM Respiratory: Present respiratory distress and able to speak in complete sentences; Absent wheezes or crackles Cardiac: Present S1/S2, Tachycardia and radial pulses present GI: Present soft and distention; Absent tenderness or guarding Rectal (female): Present deferred (female): Present deferred Skin: Present intact; Absent cyanosis or jaundice Neuro: Present awake; Absent alert or oriented x 3 Extremities: Present normal inspection; Absent clubbing or cyanosis Psychiatric: Present normal affect and cooperative Assessment and Plan *Assessment and plan (1) Acute respiratory failure with hypoxia: Status: Acute Category: Medical Code(s): J96.01 - Acute respiratory failure with hypoxia (2) Pneumonia: Status: Acute Qualifiers: Laterality: left Lung location: lower lobe of lung Pneumonia type: due to unspecified organism Qualified Code(s): J18.9 - Pneumonia, unspecified organism Category: Medical Code(s): J18.9 - Pneumonia, unspecified organism (3) COPD exacerbation: Status: Acute Category: Medical Code(s): J44.1 - Chronic obstructive pulmonary disease with (acute) exacerbation (4) Respiratory failure with hypoxia and hypercapnia: Status: Acute Qualifiers: Chronicity: acute Qualified Code(s): J96.01 - Acute respiratory failure with hypoxia; J96.02 - Acute respiratory failure with hypercapnia Category: Medical Code(s): J96.91 - Respiratory failure, unspecified with hypoxia; J96.92 - Respiratory failure, unspecified with hypercapnia Plan Ms. Hurst is a 67 Y/OFemale , H/O atrial fibrillation
--- NOTE | 2023-05-18 12:41 | EXP.ACUTE.PN ---
Subjective *Date: 05/18/23 *Time: 12:41 Interval history: Patient feeling a little better this morning. Stable on 4 L. Wore BiPAP overnight. No nausea vomiting or chest pain. Alert and oriented x 3. Medical Exam Vital signs and Labs for Last 24 Hours: Vital Signs Temp Pulse Pulse Resp BP Pulse Ox O2 Del Method 05/18/23 11:18 98.0 F 95 H 20 146/84 H 95 Nasal Cannula 05/18/23 10:46 Room Air 05/18/23 08:00 Nasal Cannula 05/18/23 08:07 BiPAP 05/18/23 08:00 BiPAP 05/18/23 07:51 98.2 F 110 H 22 179/85 H 94 L Nasal Cannula 05/18/23 06:56 Nasal Cannula 05/18/23 06:34 99 H 05/18/23 06:34 97 H 05/18/23 05:00 BiPAP 05/18/23 04:00 97.9 F 85 22 144/77 H 98 BiPAP 05/18/23 04:00 90 05/18/23 00:00 100 H 05/18/23 03:21 95 BiPAP 05/18/23 03:00 BiPAP 05/18/23 01:22 97 H 05/18/23 01:22 100 H 05/18/23 01:22 05/18/23 01:00 BiPAP 05/17/23 23:48 98.0 F 103 H 24 148/78 H 100 Nasal Cannula 05/17/23 23:00 Nasal Cannula 05/17/23 20:00 100 H 05/17/23 21:00 BiPAP 05/17/23 21:39 94 H 05/17/23 21:39 102 H 05/17/23 21:39 05/17/23 20:00 105 H 98 BiPAP 05/17/23 19:41 97.6 F 100 H 22 129/63 97 BiPAP 05/17/23 18:45 BiPAP 05/17/23 18:33 71 05/17/23 18:33 75 05/17/23 18:33 96 BiPAP 05/17/23 18:33 05/17/23 17:42 91 H 22 142/65 H 95 BiPAP 05/17/23 17:00 BiPAP 05/17/23 17:00 96 BiPAP 05/17/23 16:00 105 H 05/17/23 16:00 98.1 F 99 H 21 168/67 H 95 Room Air 05/17/23 16:09 05/17/23 15:08 Nasal Cannula 05/17/23 13:37 115 H 05/17/23 13:37 112 H 05/17/23 13:00 Nasal Cannula O2 Flow Rate FiO2 05/18/23 11:18 2 05/18/23 10:46 05/18/23 08:00 05/18/23 08:07 05/18/23 08:00 05/18/23 07:51 4 05/18/23 06:56 4 05/18/23 06:34 05/18/23 06:34 05/18/23 05:00 05/18/23 04:00 05/18/23 04:00 05/18/23 00:00 05/18/23 03:21 35 05/18/23 03:00 05/18/23 01:22 05/18/23 01:22 05/18/23 01:22 35 05/18/23 01:00 05/17/23 23:48 4 05/17/23 23:00 4 05/17/23 20:00 05/17/23 21:00 05/17/23 21:39 05/17/23 21:39 05/17/23 21:39 35 05/17/23 20:00 35 05/17/23 19:41 05/17/23 18:45 05/17/23 18:33 05/17/23 18:33 05/17/23 18:33 35 05/17/23 18:33 35 05/17/23 17:42 35 05/17/23 17:00 05/17/23 17:00 35 05/17/23 16:00 05/17/23 16:00 05/17/23 16:09 35 05/17/23 15:08 4 05/17/23 13:37 05/17/23 13:37 05/17/23 13:00 4 Intake and Output 05/17/23 05/18/23 05/18/23 23:59 07:59 15:59 Intake Total 340 / 1260 60 / 60 Output Total 750 / 1350 150 / 150 Balance -410 / -90 -90 / -90 Intake: Intake, Oral Amount 240 / 560 60 / 60 Intake, Total IV Amount 100 / 700 Ceftriaxone Sodium 1 gm In 0.9 100 / 100 % Sodium Chloride 50 ml @ 100 mls/hr IV Q24H [facility] Rx#:[id number] Output: Output, Urine Amount 750 / 1350 150 / 150 Other: Number of Voids 1 Number of Unmeasured Voids 0 0 Weight 61.507 kg Patient Weight 05/18/23 23:59 Weight 61.507 kg Laboratory Results - last 24 hr 05/17/23 12:55: Specimen Source Left radial, O2 % 3lpm, ABG pH 7.36, ABG pCO2 59.4 H, ABG pO2 97.4, ABG HCO3 32.4 H, ABG Total CO2 34.3 H, ABG O2 Saturation 97, ABG Base Excess 6.9 H, Herminio Test Acceptable 05/18/23 06:27: WBC 4.3 L D, RBC 3.25 L, Hgb 7.7 L, Hct 24.6 L, MCV 75.8 L, MCH 23.7 L, MCHC 31.2 L, RDW 20.2 H, Plt Count 236, MPV 9.8, Neut % (Auto) 87.0 H, Lymph % (Auto) 10.8, [place] % (Auto) 2.0, Eos % (Auto) 0.2, Baso % (Auto) 0.1, Neut # (Auto) 3.7, Lymph # (Auto) 0.5 L, [place] # (Auto) 0.1, Eos # (Auto) 0.0, Baso # (Auto) 0.0, Total Counted 100, Neutrophils % (Manual) 92 H, Lymphocytes % (Manual) 8 L, Platelet Estimate Normal, Hypoch
--- NOTE | 2023-05-18 18:11 | PC.NURSE ---
PT IS RESTING IN BED. ALERT AND ORIENTED X4. PT HAS BEEN SLEEPING ON AND OFF T/O THE SHIFT. EATING AND DRINKING FAIR. LUNG SOUNDS DIMINISHED WITH SCATTERED WHEEZES. ABDOMEN SOFT/NON TENDER WITH HYPOACTIVE BOWEL SOUNDS. PT TOLERATED SITTING UP IN THE CHAIR FOR ABOUT AN HOUR THIS MORNING. 1 ASSIST TO GET UP TO THE BSC. O2 SATURATION HAS MAINTAINED 93-96% ON 2 L NC. WILL CONTINUE TO MONITOR.
--- NOTE | 2023-05-18 20:11 | PC.NURSE ---
Patient's 02 at 2006 was 77% on 1L per NC. O2 titrated to 3-4L per NC via film writer as ordered with O2 Pulse Ox showing effectiveness with an O2 of 93% on 3L NC. Patient denies SOB. Skin pink, warm and dry. Respirations easy and even with a rate of 16 bpm. Will continue to monitor.
[2023-05-19] VITALS (7 sets, daily range): BP systolic 157–176; BP diastolic 77–84; PULSE 89–104; RESP 22–24; TEMP 36.6–36.7; O2SAT 87–99; BMI 24.8
[2023-05-19 05:57] LABS: Hematocrit 26.1 % (37.0-47.0); Hemoglobin 7.9 g/dL (12.2-16.2)
[2023-05-19 05:59] LABS: Chloride 105 mmol/L (98-107); Potassium 4.5 mmoL/L (3.5-5.1); Sodium 141 mmol/L (136-145)
[2023-05-19 06:01] LABS: Alanine Aminotransferase 24 U/L (12-78); Aspartate Amino Transferase 21 U/L (14-36); Blood Urea Nitrogen 24 mg/dl (7-17); Creatinine Clearance Estimated 52 mL/min (50-200); Estimated Glomerular Filt Rate 83 ml/min (>60); GFR (African American) 101 ML/MIN (>60)
[2023-05-19 06:02] LABS: Albumin Level 3.2 g/dl (3.5-5.0); Albumin/Globulin Ratio 1.1 (1.1-1.8); Alkaline Phosphatase 86 U/L (38-126); Anion Gap 1.5 mEq/L (5-15); Bilirubin,Total 0.4 mg/dl (0.2-1.3); Calcium 8.3 mg/dl (8.4-10.2); Carbon Dioxide 39 mmol/L (22.0-30.0); Globulin 2.8 g/dL (1.3-3.2); Glucose 145 mg/dl (74-100)
--- NOTE | 2023-05-19 06:07 | PC.NURSE ---
Patient alert and orient to person, place, time and situation. No confusion noted. Patient pleasant and cooperative with staff. Patient's 02 has remained in the 90's on 4L per NC. Lung sounds noted with left lower lobe crackles with wheezing noted to upper bilateral lobes. Patient rested with eyes closed in bed intermittently this shift. No pain voiced.
[2023-05-19 07:50] LABS: ABG Base Excess 5.3 mmol/L (-2.4-2.3); ABG Oxygen Saturation 89 % (90-100); ABG PH 7.34 mmol/L (7.35-7.45); ABG PO2 60.6 mmhg (80-100); ABG TCO2 32.8 mmhg (23-27)
[2023-05-19 07:51] LABS: Allen's Test ACCEPTABLE; Oxygen 3LPM %; Source R RADIAL
[2023-05-19 07:53] LABS: ABG PCO2 58.2 mmhg (35.0-45.0)
--- NOTE | 2023-05-19 08:37 | PC.NURSE ---
SRNA NOTE: Alize Bernard R.N. notified of elevated BP and low O2 sat @0800 vitals. Jason SRNA
--- NOTE | 2023-05-19 09:13 | EXP.DC.SUM ---
General Admission date:: 05/13/23 Discharge date: 05/19/23 HPI HPI HPI: This is a 67-year-old female with past medical history of hypertension, hyperlipidemia, COPD on 4 L nasal cannula at home, CAD status post WA and stenting x 4 who presents emergency department today with complaints of fever and confusion. Patient was seen in the emergency department yesterday with complaints of abdominal pain and was diagnosed with urinary tract infection. She was discharged yesterday from the emergency department for UTI and placed on Macrobid. She presents today with worsening confusion, fever and continued abdominal pain. Daughter at bedside provides collateral and states that she has had worsening cough and congestion as well as adventitious lung sounds. Of note, patient was admitted approximately 2 weeks ago for possible appendicolith. At that time she was evaluated by surgery and deemed not surgical candidate and had an uneventful hospitalization. Today her CT scan does not show any appendicitis or acute bowel abnormalities. On arrival patient was noted to be febrile to 102 with heart rate in the 130s. She did have increase in white count from 6-11 since yesterday. Chest x-ray without acute mention of acute problem but does have notable coarse lung sounds on exam. Given this, she was treated with azithromycin and Rocephin and admitted to the hospitalist service for further evaluation and management. Hospital Course Hospital Course Hospital Course: Patient is a 67-year-old female who presented to hospital due to fevers and confusion. Found to have sepsis, UTI, pneumonia. Initiated on broad-spectrum antibiotics. Pulmonology consulted and assisting with care. Patient necessitating placement. Patient has graciously been accepted at [facility]. Stable for discharge to next level of care. Problems addressed as follows: Sepsis likely Pulmonary source Acute hypoxic respiratory failure, with intermittent hypercapnia COPD exacerbation due to Pneumonia Urinary tract infection -Patient's sepsis has resolved. She is continue to require supplemental oxygen. Currently on her baseline 3 to 4 L. Had an episode necessitating BiPAP due to hypercapnia but this is resolved without further need for BiPAP. Has been off BiPAP for over 36 hours prior to discharge with stable blood gas. Blood gas on morning of discharge showed pH of 7.35, pCO2 of 58. This appears to be her chronic baseline. Pulmonology consulted and assisted with care during admission. Continue inhalers and nebulizer at discharge. Patient has completed 5 days of azithromycin and 7 days of ceftriaxone during admission. Plan to follow-up with pulmonology in 1 week. ABG ordered to be obtained prior. Anemia likely anemia of iron deficiency -Hemoglobin 7.9 this morning. Transfusion threshold hemoglobin less than 7. Status post transfusion of 1 unit so far this admission. Recommend repeat CBC, CMP, magnesium in 1 week to monitor kidney function and blood levels. CAD Hypertension -Continue metoprolol 25 mg daily, lisinopril 2.5 mg daily. Will resume Eliquis at half dose of 2.5 mg twice daily given recurrent anemia and need for transfusions. Continue pantoprazole will 40 g daily for GI source of potential slow blood loss. Anxiety: continue Klonopin 1 mg twice daily scheduled. Initiate citalopram 10 g daily for anxiety, consider weaning pending response Neuropathy: Continue gabapentin 600 twice GERD: Continue pantoprazole 40 mg daily Hyperlipidemia: Continue Lipitor 10 mg nightly Spent 40 minutes in discharge counseling, documentation, chart review, and direct care with patient. Exam Data for Last 24 hours Vital signs and Labs for Last 24 Hours: Temp Pulse Resp BP Pulse Ox O2 Del Method O2 Flow Rate 98.2 F 110 H 22 179/85 H 94 L Room Air 4 05/18/23 07:51 05/18/23 07:51 05/18/23 07:51 05/18/23 07:51 05/18/23 07:51 05/18/23 10:46 05/18/23 07:51 FiO2 35 12
--- NOTE | 2023-05-19 09:17 | PC.NURSE ---
SRNA NOTE: pt now on 3L of O2. O2 sat now at 98%. Alize notified of improvement. Jason SRNA
--- NOTE | 2023-05-19 09:19 | PC.NURSE ---
SRNA NOTE: pt is now on 2.5L of O2. O2 sat rechecked and pt is now satting @ 98%. Alize notified of improvement. Jason SRNA
--- NOTE | 2023-05-19 09:40 | PC.NURSE ---
courtesy tech note: pt resting in bed at round. no verbalized needs at this time. call light w/in reach.
--- NOTE | 2023-05-19 09:55 | EXP.PULM.PN ---
Subjective *Date: 05/19/23 *Time: 11:07 Interval history: No acute respiratory events overnight. Pulmonology Exam Inpatient Vital signs and Labs for Last 24 Hours: Temp Pulse Resp BP Pulse Ox O2 Del Method O2 Flow Rate 98.0 F 103 H 24 176/77 H 87 L Nasal Cannula 2.5 05/19/23 08:00 05/19/23 08:00 05/19/23 08:00 05/19/23 08:00 05/19/23 08:00 05/19/23 09:04 05/19/23 09:04 FiO2 35 05/18/23 03:21 Laboratory Results - last 24 hr 05/19/23 05:45: Hgb 7.9 L, Hct 26.1 L, Sodium 141, Potassium 4.5, Chloride 105, Carbon Dioxide 39 H, Anion Gap 1.5 L, BUN 24 H, Creatinine 0.70, Estimated Creat Clear 52, Estimated GFR 83, Est GFR ( Amer) 101, Glucose 145 H, Calcium 8.3 L, Total Bilirubin 0.4, AST 21, ALT 24, Alkaline Phosphatase 86, Total Protein 6.0 L, Albumin 3.2 L, Globulin 2.8, Albumin/Globulin Ratio 1.1 05/19/23 07:47: Specimen Source R radial, O2 % 3lpm, ABG pH 7.34 L, ABG pCO2 58.2 H, ABG pO2 60.6 L, ABG HCO3 31.0 H, ABG Total CO2 32.8 H, ABG O2 Saturation 89 L, ABG Base Excess 5.3 H, Herminio Test Acceptable I & O for Labs for Last 24 Hours: Intake & Output 05/16/23 05/17/23 05/18/23 05/19/23 23:59 23:59 23:59 23:59 Intake Total 1711 / 2511 1260 / 1260 230 / 470 240 / 240 Output Total 800 / 1400 1350 / 1350 150 / 150 Balance 911 / 1111 -90 / -90 80 / 320 240 / 240 Weight 134 lb 7.712 oz 135 lb 135 lb 9.6 oz 135 lb 3.2 oz Microbiology Reports for the Last 24 Hours: Microbiology 05/13/23 18:31 Blood Blood Culture - Preliminary 05/13/23 19:00 Blood Blood Culture - Preliminary Constitutional: Present moderate distress Head: Present normocephalic and atraumatic ENT: Present normal exam, normal oropharynx and mucous membranes moist Neck: Present normal inspection and full ROM Respiratory: Present respiratory distress and able to speak in complete sentences; Absent wheezes or crackles Cardiac: Present S1/S2, Tachycardia and radial pulses present GI: Present soft and distention; Absent tenderness or guarding Rectal (female): Present deferred (female): Present deferred Skin: Present intact; Absent cyanosis or jaundice Neuro: Present awake and oriented x 3; Absent alert Extremities: Present normal inspection; Absent clubbing or cyanosis Psychiatric: Present normal affect and cooperative Assessment and Plan *Assessment and plan (1) Acute respiratory failure with hypoxia: Status: Acute Category: Medical Code(s): J96.01 - Acute respiratory failure with hypoxia (2) Pneumonia: Status: Acute Qualifiers: Laterality: left Lung location: lower lobe of lung Pneumonia type: due to unspecified organism Qualified Code(s): J18.9 - Pneumonia, unspecified organism Category: Medical Code(s): J18.9 - Pneumonia, unspecified organism (3) COPD exacerbation: Status: Acute Category: Medical Code(s): J44.1 - Chronic obstructive pulmonary disease with (acute) exacerbation (4) Respiratory failure with hypoxia and hypercapnia: Status: Acute Qualifiers: Chronicity: acute Qualified Code(s): J96.01 - Acute respiratory failure with hypoxia; J96.02 - Acute respiratory failure with hypercapnia Category: Medical Code(s): J96.91 - Respiratory failure, unspecified with hypoxia; J96.92 - Respiratory failure, unspecified with hypercapnia Plan Ms. Hurst is a 67 Y/OFemale , H/O atrial fibrillation hypertension dyslipidemia COPD on 4 L nasal cannula at baseline presented to the ER with subjective febrile episodes and confusion. Patient was recently presented to the ER and was discharged home on Macrobid for presumed UTI. Chest x-ray upon admission no dense consolidation noted. Concerning for airspace disease in the left lower medial lung graham. Chronic interstitial changes noted. On examination patient appeared lethargic, not responding appropriately verbal stimuli. Blood cultures pending. Continue to receive ceftriaxone
--- NOTE | 2023-05-19 11:46 | PC.NURSE ---
SRNA NOTE: pt stated that she had peed. asked pt if I could change her and she refused. nurse notified of behavior. Leonel SRNA
--- NOTE | 2023-05-19 12:12 | PC.NURSE ---
[facility]
--- NOTE | 2023-05-19 12:23 | PC.NURSE ---
EMS called for transport.
--- NOTE | 2023-05-19 12:49 | PC.NURSE ---
SRNA NOTE: asked pt once again if she could be changed d/t her being wet. pt refused. Jsaon SRNA
== END 2023-05-19 14:02 | DRG 871 ==
LOC: ER 19:33 → 2ND 19:43
PROVIDERS: Internal Medicine Adolescent Medicine; Internal Medicine Pulmonary Disease; Nurse Practitioner Acute Care; Admitting Provider Internal Medicine; Emergency Provider Emergency Medicine; Visit Provider Internal Medicine
DX: A41.9 Sepsis, unspecified organism (principal); J18.9 Pneumonia, unspecified organism; J96.02 Acute respiratory failure with hypercapnia; J96.10 Chronic respiratory failure, unspecified whether with hypoxia or hypercapnia; I42.1 Obstructive hypertrophic cardiomyopathy; J44.0 Chronic obstructive pulmonary disease with (acute) lower respiratory infection; N30.00 Acute cystitis without hematuria; I25.10 Atherosclerotic heart disease of native coronary artery without angina pectoris; E78.5 Hyperlipidemia, unspecified; I73.9 Peripheral vascular disease, unspecified; Z87.891 Personal history of nicotine dependence; Z99.81 Dependence on supplemental oxygen; G89.29 Other chronic pain; I10 Essential (primary) hypertension; F32.A Depression, unspecified; G47.00 Insomnia, unspecified; Z20.822 Contact with and (suspected) exposure to COVID-19; F41.9 Anxiety disorder, unspecified; G62.9 Polyneuropathy, unspecified; D50.9 Iron deficiency anemia, unspecified
CPT/HCPCS: 36415; 70450; 71045; 72125; 74177; 80048; 80053; 81001; 82803; 83605; 83690; 83735; 85007; 85014; 85018; 85025; 85610; 86850; 87040; 87086; 87581; 87632; 87635; 87636; 87798; 87807; 93005; 94640; 94660; 94760; 94761; 97163; 97165; 97530; 97535; 99285; G0378; J0456; J0696; J2405; J3475; P9016; Q9967

== ENCOUNTER 2023-09-05 09:17 | Emergency (ER) | payer MEDICARE, SELFPAY ==
[2023-09-05] VITALS (9 sets, daily range): BP systolic 158–185; BP diastolic 71–81; PULSE 62–86; RESP 18–26; TEMP 37.1–37.2; O2SAT 97–99; BMI 21.9
--- NOTE | 2023-09-05 09:37 | XR_ITS ---
PROCEDURE INFORMATION: Exam: XR Chest Exam date and time: 09/05/2023 10:12 AM Age: 68 years old Clinical indication: Cough and shortness of breath; Additional info: Weakness, nausea, rll sounds decreased TECHNIQUE: Imaging protocol: Radiologic exam of the chest. Views: 1 view. COMPARISON: CR XR CHEST PORTABLE 05/16/2023 10:10 AM FINDINGS: Lungs: There has been interval clearing of previously noted opacity at the right lung base. There remains linear subsegmental atelectasis or fibrosis. Pleural spaces: Unremarkable. No pleural effusion. No pneumothorax. Heart/Mediastinum: Unremarkable. No cardiomegaly. Bones/joints: Unremarkable. IMPRESSION: Interval clearing of previously present right basilar consolidation.
--- NOTE | 2023-09-05 09:37 | PC.NURSE ---
respiratory notified of VBG/Lactic and blood sent to Lab.
--- NOTE | 2023-09-05 09:39 | ED_ITS ---
Discharge Plan Disposition Patient Disposition: Home, Self-Care Prescriptions Prescriptions: No Action mupirocin 2 % ointment 1 applic topical TID Qty: 22 0RF albuterol sulfate 90 mcg/actuation HFA aerosol inhaler 2 puff INHALATION Q4HP PRN (Reason: Shortness Of Breath) Qty: 8.5 2RF atorvastatin 10 mg tablet 10 mg PO HS Qty: 90 0RF citalopram 10 mg tablet 10 mg PO DAILY Qty: 90 0RF ferrous sulfate [FeroSul] 325 mg (65 mg iron) tablet 325 mg PO DAILY Qty: 90 0RF Trelegy Ellipta 100-62.5-25 mcg blister with device 1 ea inhalation DAILY Qty: 60 2RF ipratropium-albuterol 0.5 mg-3 mg(2.5 mg base)/3 mL solution for nebulization 3 ml INHALATION QIDP PRN (Reason: Shortness Of Breath Or Wheezing) Qty: 180 0RF melatonin 5 mg tablet 5 mg PO HS Qty: 90 0RF pantoprazole 40 mg tablet,delayed release (DR/EC) 40 mg PO DAILY Qty: 90 0RF lisinopril 2.5 mg tablet See Rx Instructions .ROUTE .COMPLEX Qty: 90 0RF Dose Instruction: TAKE 1 TABLET BY MOUTH DAILY Rx Instructions: TAKE 1 TABLET BY MOUTH DAILY Eliquis 5 mg tablet 2.5 mg PO BID 30 Days Qty: 30 2RF ondansetron 4 mg tablet,disintegrating 4 mg PO Q8H PRN (Reason: nausea and vomiting) Qty: 30 0RF clonazepam [Klonopin] 1 mg tablet 1 mg PO BID 30 Days Qty: 60 0RF gabapentin 600 mg tablet 600 mg PO BID 30 Days Qty: 60 0RF metoprolol succinate 25 mg tablet extended release 24 hr 25 mg PO DAILY hydroxyzine pamoate 25 mg Capsule 25 mg PO Q6HP PRN (Reason: Anxiety) Qty: 0 0RF nicotine 21 mg/24 hr Patch 24 Hour 21 mg transdermal DAILYP PRN (Reason: Nicotine Cravings) Qty: 0 0RF Referrals Follow up/Referrals: Stephy Morin PA [Primary Care Provider] - See instructions Activity Restrictions/Add. Instructions Additional Instructions/Restrictions: Call your family doctor to establish care for this visit to the emergency department and schedule follow-up within 48 hours to ensure improvement. If you have any worsening of your condition or any other concerning signs or symptoms, return to the emergency department or your primary care doctor for further evaluation. Clinical Impressions Clinical Impression: Nausea, Malaise Discharge ED Provider: Lucien Aviles General Adult HPI General Chief complaint: Shortness of Breath/Dyspnea Stated complaint: soa, nausea Time Seen by Provider: 09/05/23 09:23 History of Present Illness HPI narrative: This is a 68-year-old female with history of hypertension, hyperlipidemia, COPD on 3 L nasal cannula still smoking 1 pack at home, PAD, depression, presenting with nausea and weakness. This been going on for about 2 weeks. Patient states that she has been nauseated, had diarrhea last week, none this week. This week she has just felt more nauseated without actual vomiting. Associated generalized weakness. She states that her p.o. intake has been about the same, no change in cough, no unilateral weakness, no chest pain or shortness of breath, no rash, no urinary symptoms, or any other concerns other than nausea and generalized weakness. Related Data Home Medications Medication Instructions Recorded Confirmed metoprolol succinate 25 mg 25 mg PO DAILY High Blood Pressure 02/17/23 06/29/23 tablet,extended release 24 hr Previous Rx's Medication Instructions Recorded hydroxyzine pamoate 25 mg capsule 25 mg PO Q6HP PRN Anxiety #0 caps 05/19/23 nicotine 21 mg/24 hr daily 21 mg transdermal DAILYP PRN 05/19/23 transdermal patch Nicotine Cravings #0 ea mupirocin 2 % topical ointment 1 applic topical TID #22 grams 06/29/23 albuterol sulfate 90 mcg/actuation 2 puff inhalation Q4HP PRN 08/04/23 aerosol inhaler Shortness Of Breath #8.5 grams atorvastatin 10 mg tablet 10 mg PO HS Cholesterol #90 tabs 08/04/23 citalopram 10 mg tablet 10 mg PO DAILY #90 tabs 08/04/23 ferrous sulfate 325 mg (65 mg 325 mg PO DAILY IRON SUPPLEMENT 08/04/23 iron) tablet (FeroSul) #90 tabs fluticasone fur. 100 mcg-umeclid 1 ea inhalation DAILY #60 ea 08/04/23 62.5 mcg-vilant 25 mcg inhalat.powder (Trelegy Ellipta) ipratropium 0.5 mg-albuterol 3 mg 3 ml inhalation QIDP PRN Shortness 08/04/23 (2.5 mg base)/3 mL nebulization Of Breath Or Wheezing #180 mL soln melatonin 5 mg tablet 5 mg PO HS #90 tabs 08/04/23 pantoprazole 40 mg tablet,delayed 40 mg PO DAILY GERD #90 tabs 08/04/23 release lisinopril 2.5 mg tablet See Rx Instructions .Route 08/07/23 .COMPLEX #90 tabs apixaban 5 mg tablet (Eliquis) 2.5 mg (1/2 x 5 mg) PO BID Blood 08/18/23 Thinner/AFIB 30 days #30 tabs clonazepam 1 mg tablet (Klonopin) 1 mg PO BID Anxiety 30 days #60 09/04/23 tabs gabapentin 600 mg tablet 600 mg PO BID NEUROPATHY 30 days 09/04/23 #60 tabs ondansetron 4 mg disintegrating 4 mg PO Q8H PRN nausea and 09/04/23 tablet vomiting #30 tabs Allergies Allergy/AdvReac Type Severity Reaction Status Date / Time levofloxacin Allergy Intermediate blisters Verified 06/29/23 14:27 in mouth, diarrhea PFSH PFSH Disclaimer: The information contained in this section may have been updated after the patient was seen, as this information can be updated by other users. Medical History (Updated 09/05/23 @ 11:45 by Lucien Aviles MD) Decreased muscle strength Unsteady gait Respiratory failure with hypoxia and hypercapnia COPD exacerbation Encounter for screening for malignant neoplasm of lung Family history of asthma COPD mixed type Smoking greater than 30 pack years SOB (shortness of breath) on exertion Chronic respiratory failure with hypoxia Presence of arterial stent H/O Hampton's palsy Sinus tachycardia Hypertrophic obstructive cardiomyopathy Vitamin D deficiency Hampton's palsy Depression PTSD (post-traumatic stress disorder) Insomnia Chronic pain COPD exacerbation Pulmonary nodule CAD (coronary artery disease) HLD (hyperlipidemia) PAD (peripheral artery disease) HTN (hypertension) Anxiety Lung nodule seen on imaging study Surgical History Appendicolith S/P peripheral artery angioplasty with stent placement Family History Other Family history of hypertension Social History (Reviewed 06/29/23 @ 14:27 by BANG Tomlinson Smoking Status: Current every day smoker tobacco type: cigarettes packs per day: 1 second hand exposure: No alcohol intake: never substance use type: denies use current occupational status: retired Travel in the last 8 weeks: None household members: children and none housing: house lives independently: No ROS Obtained: Yes All systems reviewed & no additional complaints except as documented Physical Exam General General appearance: alert, in no apparent distress and other (Chronically ill- appearing) Head Head exam: atraumatic and normocephalic Eye Eye exam: Present normal appearance, PERRL and EOMI ENT ENT exam: Present mucous membranes moist and other (Home 3 L nasal cannula in place) Neck Neck exam: Present normal inspection, full ROM and trachea midline Respiratory Respiratory exam: Present other (Decreased breath sounds right lower lobe); Absent normal lung sounds bilaterally, respiratory distress, wheezes, stridor, accessory muscle use or prolonged expiratory phase Cardiovascular Cardiovascular exam: Present regular rate and normal rhythm Abdominal Exam Abdominal exam: Present soft; Absent distention, tenderness, guarding, rebound or rigidity Extremities Exam Extremities exam: Absent edema Neurological Exam Neurological exam: Present alert, oriented X3, CN II-XII intact and normal gait; Absent motor sensory deficit Skin Skin exam: Present warm and dry; Absent diaphoresis or erythema Medical Decision Making Medical Records Medical records reviewed: Yes I reviewed the patient's medical records. Aquilino Inquiry Pt receiving controlled substance: No Aquilino was queried for this patient: No Vital Signs: 09/05/23 09:36 09/05/23 09:45 09/05/23 09:55 Temperature 98.8 F Temperature Source Oral Pulse Rate 76 62 Pulse Rate [Left Radial] 77 Respiratory Rate 26 H 24 Blood Pressure 185/71 H Blood Pressure [Right Arm] 158/71 H Blood Pressure Mean 109 Blood Pressure Mean [Right Arm] 100 02 Sat by Pulse Oximetry 98 98 Oxygen Delivery Method Nasal Cannula Oxygen Flow Rate (LPM) 3 09/05/23 10:01 09/05/23 10:07 09/05/23 10:30 Temperature Temperature Source Pulse Rate 76 75 80 Pulse Rate [Left Radial] Respiratory Rate 18 22 Blood Pressure 178/73 H 180/81 H Blood Pressure [Right Arm] Blood Pressure Mean 114 114 Blood Pressure Mean [Right Arm] 02 Sat by Pulse Oximetry 99 97 Oxygen Delivery Method Oxygen Flow Rate (LPM) 09/05/23 11:00 09/05/23 11:30 Temperature Temperature Source Pulse Rate 80 86 Pulse Rate [Left Radial] Respiratory Rate 24 24 Blood Pressure 166/79 H 173/76 H Blood Pressure [Right Arm] Blood Pressure Mean 118 108 Blood Pressure Mean [Right Arm] 02 Sat by Pulse Oximetry 97 98 Oxygen Delivery Method Oxygen Flow Rate (LPM) Lab Data Lab Results 09/05/23 09:35: WBC 4.5 L, RBC 4.55, Hgb 13.0, Hct 41.9, MCV 92.0, MCH 28.6, M CHC 31.1 L, RDW 15.2, Plt Count 169, MPV 9.4, Neut % (Auto) 58.2, Lymph % (Auto) 29.0, Mccormick % (Auto) 7.1, Eos % (Auto) 4.1, Baso % (Auto) 1.6, Neut # (Auto) 2.6, Lymph # (Auto) 1.3, Mccormick # (Auto) 0.3, Eos # (Auto) 0.2, Baso # (Auto) 0.1, Sodium 141, Potassium 3.9, Chloride 110 H, Carbon Dioxide 30, Anion Gap 4.9 L, BUN 13, Creatinine 0.70, Estimated Creat Clear 46, Estimated GFR 83, Est GFR ( Amer) 100, Glucose 108 H, Calcium 9.5, Total Bilirubin 0.4, AST 25, ALT 16, Alkaline Phosphatase 122, Troponin I < 0.01, NT-Pro-B Natriuret Pep 182 H, Total Protein 6.7, Albumin 3.7, Globulin 3.0, Albumin/Globulin Ratio 1.2 09/05/23 09:38: VBG pH 7.38, VBG pCO2 46.9, VBG pO2 112.5 H, VBG HCO3 26.9, VBG Total CO2 28.3 H, VBG O2 Saturation 98.0 H, VBG Base Excess 1.7, VBG Lactic Acid 1.2 09/05/23 10:40: Urine Color Yellow, Urine Appearance Clear, Urine pH 6.0, Ur Specific Goessel >= 1.030, Urine Protein Negative, Urine Glucose (UA) Negative, Urine Ketones Negative, Urine Blood Negative, Urine Nitrate Negative, Urine Bilirubin Negative, Urine Urobilinogen 1.0, Ur Leukocyte Esterase Negative, Urine RBC Occasional, Urine WBC Occasional, Ur Squamous Epith Cells 3-5, Urine Bacteria Trace 09/05/23 09:35 09/05/23 09:35 Orders (Tests/Meds): ED MEDICATIONS Discontinued Medications Generic Name Dose Route Start Last Admin Trade Name Patel PRN Reason Stop Dose Admin Albuterol/Ipratropium 6 ml 09/05/23 09:37 09/05/23 09:52 Ipratropium/Albuterol 3 Ml Neb IH 09/05/23 09:38 6 ml ONCE ONE Administration Aspirin 324 mg 09/05/23 09:37 09/05/23 10:00 Aspirin 81mg Chewable Tablet PO 09/05/23 09:38 324 mg ONCE ONE Administration Dexamethasone Sodium Phosphate 10 mg 09/05/23 09:37 09/05/23 09:59 Dexamethasone 4mg/Ml 1ml Vial IV 09/05/23 09:38 10 mg ONCE ONE Administration ORDERS Category Date Time Status XR chest portable Stat Exams 09/05/23 09:37 Completed Complete Blood Count Auto Diff Stat Lab 09/05/23 09:35 Completed Comprehensive Metabolic Panel Stat Lab 09/05/23 09:35 Completed NT Pro Brain Natriuretic Pep. Stat Lab 09/05/23 09:35 Completed Troponin I Q3H Lab 09/05/23 12:45 Ordered Troponin I Q3H Lab 09/05/23 15:45 Ordered Troponin I Stat Lab 09/05/23 09:35 Completed Urinalysis and Microscopic Stat Lab 09/05/23 10:40 Completed Venous Blood Gas Stat RT 09/05/23 09:38 Completed Medical Decision Narrative: This is a 68-year-old female with history of hypertension, hyperlipidemia, COPD on 3 L nasal cannula still smoking 1 pack at home, PAD, depression, presenting with nausea and weakness. This been going on for about 2 weeks. Patient states that she has been nauseated, had diarrhea last week, none this week. This week she has just felt more nauseated without actual vomiting. Associated generalized weakness. She states that her p.o. intake has been about the same, no change in cough, no unilateral weakness, no chest pain or shortness of breath, no rash, no urinary symptoms, or any other concerns other than nausea and generalized weakness. History was obtained via conversation with patient. On arrival, patient hemodynamically stable, alert, oriented x4, appropriate, GCS 15, moving all extremities spontaneously, pupils equal and reactive to light. Full physical exam performed and significant for chronically ill, tired appearing woman in no acute distress. Nontachycardic, mildly hypertensive. Cardiopulmonary exam within normal limits. Abdomen is soft. She is well- appearing overall on her home oxygen. Differential includes dehydration, malnutrition, CAD, COPD exacerbation, ACS, arrhythmia, among others. Patient was given Decadron, DuoNeb, p.o. challenge for symptomatic management and correction of underlying abnormalities. Hematologic workup insignificant. Chest x-ray without acute cardiopulmonary airspace disease and well overall. Cardiac workup negative. See radiology read for full review of final results. Independent interpretation of EKG shows sinus rhythm 62 beats a minute no ST or T wave changes concerning for acute ischemia. RI, QRS, QT intervals within normal limits, axis normal. Heart score 4 for age and risk factors. W On reevaluation, patient resting comfortably bed wanting to go home. Able to tolerate p.o. intake. Given patient presentation, workup, history, this most likely represents dehydration and malnutrition in the setting of chronic illness and acute nausea. Because patient at baseline without signs or symptoms of clinical decompensation, deemed appropriate for discharge. Results were relayed to patient who voiced understanding and were agreeable to outpatient management and follow up. I discussed my clinical impression with patient and answered all questions. At this time, the evidence for any other entities in the differential is insufficient to warrant any further testing or ED observation. This was explained as well. Advisory was given that persistent or worsening symptoms require further evaluation. I confirmed the understanding of this discussion. Patient states she has Zofran at the pharmacy that was prescribed to her, she has not picked it up yet and started using it. It was recommended that she do this. Critical Care Critical Care Time Critical Care Time: No
--- NOTE | 2023-09-05 09:41 | ECG_ITS ---
APPROVED REPORT Exam: Resting ECG HR:62 bpm ECG Measurements Heart Rate 62 AXES ME 138 P 85 QRSd 83 QRS 88 QT 425 T 72 QTc 431 Conclusion SINUS RHYTHM POSSIBLE RIGHT VENTRICULAR CONDUCTION DELAY [RSR (QR) IN V1/V2] BORDERLINE ECG UNCONFIRMED REPORT Electronically signed by : OSMANI SARKAR, 09/06/2023 06:10:29
[2023-09-05 09:45] LABS: Basophils # 0.1 K/mm3 (0-0.2); Basophils % 1.6 % (0.1-2.0); Eosinophils # 0.2 K/mm3 (0.0-0.4); Eosinophils % 4.1 % (0.1-12.0); Hematocrit 41.9 % (37.0-47.0); Lymphocytes # 1.3 K/mm3 (0.7-4.5); Mean Corpuscular HGB Conc 31.1 g/dL (31.8-35.4); Mean Corpuscular Hemoglobin 28.6 pg (27.0-31.2); Mean Platelet Volume 9.4 fl (7.4-10.4); Monocytes # 0.3 K/mm3 (0.1-1.0); Monocytes % 7.1 % (1.7-9.3); Neutrophils # 2.6 K/mm3 (1.8-7.8); Neutrophils % 58.2 % (37.0-80.0); Platelet Count 169 K/mm3 (142-424); Red Blood Count 4.55 M/mm3 (4.20-5.40); Red Cell Distribution Width 15.2 % (11.5-17.5); White Blood Count 4.5 K/mm3 (4.8-10.8)
[2023-09-05 09:47] LABS: Lactate Venous 1.2 mmol/L (0.4-2.0); VBG Base Excess 1.7 mmol/L (-2.4-2.3); VBG HCO3 26.9 mmol/L (23-30); VBG PCO2 46.9 mmol/L (35-51); VBG PH 7.38 mmol/L (7.31-7.41); VBG PO2 112.5 mmol/L (28-40); VBG Total CO2 28.3 mmol/L (23-27)
[2023-09-05] MEDS: IPRATROPIUM/ALBUTEROL 3 ML NEB 6 ML IH (09:52)
[2023-09-05] MEDS: DEXAMETHASONE 4MG/ML 1ML VIAL 10 MG IV (09:59)
[2023-09-05] MEDS: ASPIRIN 81MG CHEWABLE TABLET 324 MG PO (10:00)
[2023-09-05 10:03] LABS: Chloride 110 mmol/L (98-107); Potassium 3.9 mmoL/L (3.5-5.1); Sodium 141 mmol/L (136-145)
[2023-09-05 10:05] LABS: Blood Urea Nitrogen 13 mg/dl (7-17); Creatinine Clearance Estimated 46 mL/min (50-200); Estimated Glomerular Filt Rate 83 ml/min (>60); GFR (African American) 100 ML/MIN (>60)
[2023-09-05 10:06] LABS: Alanine Aminotransferase 16 U/L (12-78); Albumin Level 3.7 g/dl (3.5-5.0); Albumin/Globulin Ratio 1.2 (1.1-1.8); Alkaline Phosphatase 122 U/L (38-126); Anion Gap 4.9 mEq/L (5-15); Aspartate Amino Transferase 25 U/L (14-36); Bilirubin,Total 0.4 mg/dl (0.2-1.3); Calcium 9.5 mg/dl (8.4-10.2); Carbon Dioxide 30 mmol/L (22.0-30.0); Glucose 108 mg/dl (74-100); Total Protein,Serum 6.7 g/dl (6.3-8.2)
[2023-09-05 10:15] LABS: NT Pro Brain Natriuretic Pep. 182 pg/mL (0-125)
[2023-09-05 10:19] LABS: Troponin I < 0.01 ng/ml (0.00-0.034)
[2023-09-05 10:43] LABS: Microscopic, Urine URINE MICROSCOPIC (MICROSCOPIC)
[2023-09-05 10:45] LABS: Appearance,Urine CLEAR (Clear); Bilirubin,Urine Negative (Negative); Blood, Urine Negative (Negative); Color,Urine YELLOW (Yellow); Glucose,Urine (UA) Negative (Negative); Ketones,Urine Negative (Negative); Leukocyte Esterase,Urine Negative (Negative); Nitrate,Urine Negative (Negative); Protein,Urine Negative (Negative); Specific Gravity, Urine >= 1.030 (1.005-1.030)
[2023-09-05 11:10] LABS: Bacteria,Urine Trace /lpf; RBC,Urine Occasional #/hpf (0-3); WBC,Urine Occasional #/hpf (0-3)
== END 2023-09-05 12:18 | disposition home or self-care (01) ==
PROVIDERS: Emergency Provider Emergency Medicine; PCP Physician Assistant
DX: R11.0 Nausea (principal); R53.81 Other malaise; F17.210 Nicotine dependence, cigarettes, uncomplicated; J44.9 Chronic obstructive pulmonary disease, unspecified; I11.9 Hypertensive heart disease without heart failure; I25.10 Atherosclerotic heart disease of native coronary artery without angina pectoris; I73.9 Peripheral vascular disease, unspecified; K21.9 Gastro-esophageal reflux disease without esophagitis; E78.5 Hyperlipidemia, unspecified; Z95.5 Presence of coronary angioplasty implant and graft
CPT/HCPCS: 71045; 80053; 81001; 82803; 83880; 84484; 85025; 93005; 96374; 99284

== ENCOUNTER 2023-10-21 04:50 | Observation (INO) | payer MEDICARE, SELFPAY ==
[2023-10-21] VITALS (9 sets, daily range): BP systolic 112–165; BP diastolic 54–79; PULSE 66–101; RESP 16–26; TEMP 36.4–38.9; O2SAT 94–99; BMI 21.0
--- NOTE | 2023-10-21 04:47 | ECG_ITS ---
APPROVED REPORT Exam: Resting ECG HR:99 bpm ECG Measurements Heart Rate 99 AXES PA 129 P 79 QRSd 82 QRS 84 QT 340 T 61 QTc 396 Conclusion SINUS RHYTHM POSSIBLE RIGHT ATRIAL ENLARGEMENT [0.25mV P-WAVE] POSSIBLE RIGHT VENTRICULAR CONDUCTION DELAY [RSR (QR) IN V1/V2] BORDERLINE ECG UNCONFIRMED REPORT Electronically signed by : OSMANI SARKAR, 10/22/2023 03:26:57
--- NOTE | 2023-10-21 04:52 | XR_ITS ---
PROCEDURE INFORMATION: Exam: XR Chest Exam date and time: 10/21/2023 5:08 AM Age: 68 years old Clinical indication: Shortness of breath; Additional info: Copd, SOA TECHNIQUE: Imaging protocol: Radiologic exam of the chest. Views: 1 view. COMPARISON: CR XR CHEST PORTABLE 09/05/2023 10:12 AM FINDINGS: Lungs: Similar-appearing increased bibasilar lung markings to most recent prior comparison. Perhaps mild increased infiltration of the left lower lung base/retrocardiac region. Pleural spaces: Unremarkable. No pleural effusion. No pneumothorax. Heart/Mediastinum: Unremarkable. No cardiomegaly. Vasculature: Atherosclerotic disease. Bones/joints: Degenerative change of the visualized osseous structures. IMPRESSION: Bibasilar scarring/atelectasis with perhaps mild increase in infiltration of the left lower lung base/retrocardiac region. Correlate with signs and symptoms of infection.
[2023-10-21 05:00] LABS: Coronavirus 19, PCR Not Detected (NotDetected); Influenza A, PCR Not Detected (NotDetected); Influenza B, PCR Not Detected (NotDetected)
[2023-10-21 05:01] LABS: Basophils # 0.1 K/mm3 (0-0.2); Basophils % 2.5 % (0.1-2.0); Eosinophils # 0.2 K/mm3 (0.0-0.4); Eosinophils % 3.2 % (0.1-12.0); Lymphocytes # 0.3 K/mm3 (0.7-4.5); Lymphocytes % 6.8 % (10-50); Mean Corpuscular HGB Conc 33.2 g/dL (31.8-35.4); Mean Corpuscular Hemoglobin 30.4 pg (27.0-31.2); Mean Corpuscular Volume 91.4 fl (81-99); Monocytes # 0.4 K/mm3 (0.1-1.0); Monocytes % 7.3 % (1.7-9.3); Neutrophils # 3.9 K/mm3 (1.8-7.8); Neutrophils % 80.2 % (37.0-80.0); Platelet Count 118 K/mm3 (142-424); Red Blood Count 4.27 M/mm3 (4.20-5.40); White Blood Count 4.9 K/mm3 (4.8-10.8)
[2023-10-21 05:05] LABS: Chloride 104 mmol/L (98-107); Sodium 137 mmol/L (136-145)
[2023-10-21] MEDS: ACETAMINOPHEN 500MG TAB 1000 MG PO (05:05)
[2023-10-21] MEDS: LACTATED RINGERS 1000ML 1,000 ML 999 ML IV (05:05)
[2023-10-21] MEDS: ONDANSETRON 4MG/2ML VIAL 4 MG IV ×2 (05:05→11:58)
[2023-10-21 05:06] LABS: Potassium 4.3 mmoL/L (3.5-5.1)
--- NOTE | 2023-10-21 05:06 | PC.NURSE ---
Updated provider on rectal temperature of 102.0
[2023-10-21 05:08] LABS: Lactate Venous 0.9 mmol/L (0.4-2.0); VBG Base Excess 0.1 mmol/L (-2.4-2.3); VBG HCO3 25.3 mmol/L (23-30); VBG Oxygen Saturation 97.4 % (50-70); VBG PCO2 43.9 mmol/L (35-51); VBG PH 7.38 mmol/L (7.31-7.41); VBG PO2 98.8 mmol/L (28-40); VBG Total CO2 26.6 mmol/L (23-27)
[2023-10-21 05:08] LABS: Alanine Aminotransferase 33 U/L (12-78); Albumin Level 3.7 g/dl (3.5-5.0); Alkaline Phosphatase 134 U/L (38-126); Anion Gap 9.3 mEq/L (5-15); Aspartate Amino Transferase 46 U/L (14-36); Bilirubin,Total 0.5 mg/dl (0.2-1.3); Blood Urea Nitrogen 12 mg/dl (7-17); Carbon Dioxide 28 mmol/L (22.0-30.0); Creatinine Clearance Estimated 44 mL/min (50-200); Estimated Glomerular Filt Rate 83 ml/min (>60); GFR (African American) 100 ML/MIN (>60)
[2023-10-21 05:08] LABS: Microscopic, Urine URINE MICROSCOPIC (MICROSCOPIC)
[2023-10-21 05:09] LABS: Albumin/Globulin Ratio 1.2 (1.1-1.8); Calcium 9.2 mg/dl (8.4-10.2); Globulin 3.1 g/dL (1.3-3.2); Glucose 116 mg/dl (74-100); Magnesium 1.8 mg/dl (1.6-2.3); Total Protein,Serum 6.8 g/dl (6.3-8.2)
[2023-10-21 05:09] LABS: Appearance,Urine CLOUDY (Clear); Bilirubin,Urine Negative (Negative); Blood, Urine Negative (Negative); Color,Urine YELLOW (Yellow); Glucose,Urine (UA) Negative (Negative); Ketones,Urine Negative (Negative); Leukocyte Esterase,Urine TRACE (Negative); Nitrate,Urine Negative (Negative); Protein,Urine Negative (Negative)
[2023-10-21 05:20] LABS: Amorphous Sediment,Urine 2+ /lpf; Bacteria,Urine 1+ /lpf; RBC,Urine Occasional #/hpf (0-3); Squamous Epithelial Cell,Urine Occasional #/hpf (0-5); WBC,Urine Occasional #/hpf (0-3)
[2023-10-21 05:21] LABS: Troponin I < 0.01 ng/ml (0.00-0.034)
--- NOTE | 2023-10-21 05:39 | PC.NURSE ---
call placed to [facility] for bed assignment
--- NOTE | 2023-10-21 05:40 | PC.NURSE ---
Contacted after hours pharmacy for vancomycin dosing.
--- NOTE | 2023-10-21 05:43 | ED_ITS ---
Discharge Plan Disposition Patient Disposition: Admitted Chief Complaint: Weakness Clinical Impressions Clinical Impression: Sepsis, Fever Discharge ED Provider: Acosta Weaver General Adult HPI General Chief complaint: Weakness Stated complaint: body aches and chills Time Seen by Provider: 10/21/23 04:51 Mode of Arrival: EMS Source of Information: Patient and EMS Limitations: No Limitations Description of Symptoms (Recalled from ER Triage Doc. by RN): Patient reports that she's had chills, body aches, dizziness, nausea, weakness that started approximately 2030 last night. Patient reports that she's so weak she's unable to get up to go to the bathroom. Patient denies shortness of breath, chest pain, or further specific symptoms. Patient just states that she feels bad . History of Present Illness HPI narrative: 68-year-old female with history of COPD, paroxysmal A-fib, coronary artery disease, peripheral artery disease presents with multiple complaints. Orts that she has been feeling weak and dizzy starting at around 830 last night. She denies any specific chest pain abdominal pain shortness of breath. She reports that she did not had any more significant cough or sputum production and normal. She does feel some nausea but not more than normal. Related Data Previous Rx's Medication Instructions Recorded citalopram 10 mg tablet 10 mg PO DAILY #90 tabs 08/04/23 fluticasone fur. 100 mcg-umeclid 1 ea inhalation DAILY #60 ea 08/04/23 62.5 mcg-vilant 25 mcg inhalat.powder (Trelegy Ellipta) ipratropium 0.5 mg-albuterol 3 mg 3 ml inhalation QIDP PRN Shortness 08/04/23 (2.5 mg base)/3 mL nebulization Of Breath Or Wheezing #180 mL soln melatonin 5 mg tablet 5 mg PO HS #90 tabs 08/04/23 lisinopril 2.5 mg tablet See Rx Instructions .Route 08/07/23 .COMPLEX #90 tabs apixaban 5 mg tablet (Eliquis) 2.5 mg (1/2 x 5 mg) PO BID Blood 08/18/23 Thinner/AFIB 30 days #30 tabs albuterol sulfate 90 mcg/actuation 2 puff inhalation Q4HP PRN 10/05/23 aerosol inhaler Shortness Of Breath #8.5 grams clonazepam 1 mg tablet (Klonopin) 1 mg PO BID Anxiety 30 days #60 10/05/23 tabs gabapentin 600 mg tablet 600 mg PO BID NEUROPATHY 30 days 10/05/23 #60 tabs ondansetron 4 mg disintegrating 4 mg PO Q8H PRN nausea and 10/05/23 tablet vomiting #30 tabs pantoprazole 40 mg tablet,delayed 40 mg PO DAILY GERD #90 tabs 10/05/23 release atorvastatin 10 mg tablet 10 mg PO HS Cholesterol #100 tabs 10/18/23 metoprolol succinate 25 mg 25 mg PO DAILY High Blood Pressure 10/20/23 tablet,extended release 24 hr #90 tabs Allergies Allergy/AdvReac Type Severity Reaction Status Date / Time levofloxacin Allergy Intermediate blisters Verified 10/21/23 05:00 in mouth, diarrhea PFSH [facility] Disclaimer: The information contained in this section may have been updated after the patient was seen, as this information can be updated by other users. Medical History Decreased muscle strength Unsteady gait Respiratory failure with hypoxia and hypercapnia COPD exacerbation Encounter for screening for malignant neoplasm of lung Family history of asthma COPD mixed type Smoking greater than 30 pack years SOB (shortness of breath) on exertion Chronic respiratory failure with hypoxia O2 dependent Presence of arterial stent H/O Hampton's palsy Sinus tachycardia Hypertrophic obstructive cardiomyopathy (2019) Cardiac cath Vitamin D deficiency Hampton's palsy Depression PTSD (post-traumatic stress disorder) Insomnia Chronic pain COPD exacerbation Pulmonary nodule CAD (coronary artery disease) HLD (hyperlipidemia) PAD (peripheral artery disease) HTN (hypertension) Anxiety Lung nodule seen on imaging study Surgical History Appendicolith S/P peripheral artery angioplasty with stent placement Family History Other Family history of hypertension Social History Smoking Status: Current every day smoker tobacco type: cigarettes packs per day: 1 second hand exposure: No alcohol intake: never substance use type: denies use current occupational status: retired Travel in the last 8 weeks: None household members: children and none housing: house lives independently: No ROS Obtained: Yes All systems reviewed & no additional complaints except as documented Physical Exam General General appearance: alert and anxious Head Head exam: atraumatic and normocephalic Eye Eye exam: Present normal appearance, PERRL and EOMI ENT ENT exam: Present normal oropharynx, normal external ear exam and other (TMs occluded by wax) Neck Neck exam: Present normal inspection and full ROM Chest Chest inspection: Present normal inspection and symmetric chest wall rise; Absent tenderness Respiratory Respiratory exam: Present other (Mildly diminished bilaterally); Absent respiratory distress Cardiovascular Cardiovascular exam: Present normal rhythm and tachycardia Abdominal Exam Abdominal exam: Present soft; Absent distention, tenderness or guarding Extremities Exam Extremities exam: Present normal inspection; Absent edema or joint swelling Back Exam Back exam: Present normal inspection; Absent tenderness Neurological Exam Neurological exam: Present alert and oriented X3; Absent motor sensory deficit Psychiatric Psychiatric exam: Present normal affect and normal mood Skin Skin exam: Present warm, dry and normal color Lymphatic Lymphatic Findings: no adenopathy Medical Decision Making Medical Records Medical records reviewed: Yes I reviewed the patient's medical records. [place] Inquiry Pt receiving controlled substance: No Aqu[place] was queried for this patient: No Vital Signs: 10/21/23 04:50 10/21/23 05:06 Temperature 98.1 F 102.0 F H Temperature Source Oral Rectal Pulse Rate [Left Radial] 101 H Respiratory Rate 23 Blood Pressure [Right Arm] 138/74 Blood Pressure Mean [Right Arm] 95 Blood Pressure Source [Right Arm] Automatic Cuff Blood Pressure Position [Right Arm] Sitting 02 Sat by Pulse Oximetry 97 Oxygen Delivery Method Nasal Cannula Oxygen Flow Rate (LPM) 3 Lab Data Lab results reviewed: Yes I reviewed the patient's lab results. Lab Results 10/21/23 04:45: SARS-CoV-2 (PCR) Not detected, Influenza A Untype (PCR) Not detected, Influenza Type B (PCR) Not detected 10/21/23 04:52: WBC 4.9, RBC 4.27, Hgb 13.0, Hct 39.0, MCV 91.4, MCH 30.4, MCHC 33.2, RDW 14.0, Plt Count 118 L, MPV 10.0, Neut % (Auto) 80.2 H, Lymph % (Auto) 6.8 L, [place] % (Auto) 7.3, Eos % (Auto) 3.2, Baso % (Auto) 2.5 H, Neut # (Auto) 3.9, Lymph # (Auto) 0.3 L, [place] # (Auto) 0.4, Eos # (Auto) 0.2, Baso # (Auto) 0.1, Sodium 137, Potassium 4.3, Chloride 104, Carbon Dioxide 28, Anion Gap 9.3, BUN 12, Creatinine 0.70, Estimated Creat Clear 44, Estimated GFR 83, Est GFR ( Amer) 100, Glucose 116 H, Calcium 9.2, Magnesium 1.8, Total Bilirubin 0.5, AST 46 H, ALT 33, Alkaline Phosphatase 134 H, Troponin I < 0.01, Total Protein 6.8, Albumin 3.7, Globulin 3.1, Albumin/Globulin Ratio 1.2 10/21/23 04:54: VBG pH 7.38, VBG pCO2 43.9, VBG pO2 98.8 H, VBG HCO3 25.3, VBG Total CO2 26.6, VBG O2 Saturation 97.4 H, VBG Base Excess 0.1, VBG Lactic Acid 0.9 10/21/23 05:05: Urine Color Yellow, Urine Appearance Cloudy, Urine pH 8.0, Ur Specific [place] 1.020, Urine Protein Negative, Urine Glucose (UA) Negative, Urine Ketones Negative, Urine Blood Negative, Urine Nitrate Negative, Urine Bilirubin Negative, Urine Urobilinogen 1.0, Ur Leukocyte Esterase Trace, Urine RBC Occasional, Urine WBC Occasional, Ur Squamous Epith Cells Occasional, Amorphous Sediment 2+, Urine Bacteria 1+ 10/21/23 04:52 10/21/23 04:52 Orders (Tests/Meds): ED MEDICATIONS Generic Name Dose Route Start Last Admin Trade Name Freq PRN Reason Stop Dose Admin Lactated Ringer's 1,000 mls @ 999 mls/hr 10/21/23 05:00 10/21/23 05:05 Lactated Ringer's 1000 Ml Bag IV 10/21/23 06:00 999 mls/hr .Q1H1M LEONARD Administration Piperacillin Sod/Tazobactam 50 mls @ 100 mls/hr 10/21/23 05:36 Sod 3.375 gm/ Sodium Chloride IV 10/21/23 06:05 ONCE ONE Miscellaneous 1 each 10/21/23 05:45 Vancomycin Consult Request NOTAPPLIC 11/20/23 05:44 CONSULT PHARMACY [facility] Discontinued Medications Generic Name Dose Route Start Last Admin Trade Name Patel PRN Reason Stop Dose Admin Acetaminophen 1,000 mg 10/21/23 04:51 10/21/23 05:05 Acetaminophen 500mg Tab PO 10/21/23 04:52 1,000 mg ONCE ONE Administration Ondansetron HCl 4 mg 10/21/23 04:51 10/21/23 05:05 Ondansetron 4mg/2ml Vial IV 10/21/23 04:52 4 mg ONCE ONE Administration ORDERS Category Date Time Status CXR --portable [XR chest portable] Stat Exams 10/21/23 04:52 Taken CBC w/Auto Diff [Complete Blood Count Auto Diff] Stat Lab 10/21/23 04:52 Completed CMP [Comprehensive Metabolic Panel] Stat Lab 10/21/23 04:52 Completed Magnesium Stat Lab 10/21/23 04:52 Completed Rapid PCR Covid and Flu A/B Stat Lab 10/21/23 04:45 Completed Troponin I Q3H Lab 10/21/23 04:52 Completed Troponin I Q3H Lab 10/21/23 08:00 Ordered UA [Urinalysis and Microscopic] Stat Lab 10/21/23 05:05 Completed Blood Culture Stat Micro 10/21/23 05:05 Received VBG [Venous Blood Gas] Stat RT 10/21/23 04:54 Completed Medical Decision Narrative: 68-year-old female with history as reported above presents with fever, malaise, dizziness starting around 8:00 last night.. History was obtained interactive discussion with EMS, patient. On arrival, patient is febrile to 102, mildly tachycardic, normotensive, GCS 15, alert and oriented, moving all extremities spontaneously. Full physical exam performed and significant for no focal neurologic deficit. Differential includes but is not limited to sepsis, UTI, pneumonia, COPD exacerbation skin/soft tissue infection, intra-abdominal infection, bacteremia, FOLLOW UP CLERK infection. Patient was given 1 L fluid bolus, Tylenol, Zofran for symptomatic management and correction of underlying abnormalities. Workup initiated including CBC CMP cath UA troponin EKG chest x-ray blood cultures On re-evaluation, patient remains stable. Laboratory workup independently interpreted by me and significant for urine with plus bacteria and occasional WBCs, negative nitrates, not convincing for acute UTI. No significant leukocytosis, mild thrombocytopenia, unremarkable VBG negative initial troponin. Imaging independently interpreted by me and significant for hazy bilateral lower lobe infiltrates concerning for pneumonia. Prior imaging appears slightly more dense than prior.. See radiology read for full review of final results. EKG independently interpreted by me and significant for sinus rhythm, rate of 99, no concerning ST or T wave changes, no evidence of arrhythmia.. CT imaging of the head chest and abdomen pelvis was considered, but deemed unnecessary given no focal symptoms to direct imaging. Lumbar puncture was considered but deemed unnecessary at this time. Given patient history, exam and workup, patient's presentation most likely represents sepsis of unknown source. May be pulmonary given chest x-ray. Not convincingly a urinary source. Given unknown source of fever and illness, we will initiate broad-spectrum antibiotic coverage with vancomycin and Zosyn IV. Interactive discussion was had with the hospitalist on-call who accepted patient for admission for further evaluation and management. Procedures Risk/Benefits of Procedure(s) Were Explained: Yes Critical Care Critical Care Time Critical Care Time: No
[2023-10-21] MEDS: PIPERACILLIN/TAZO 3.375 GM in 0.9 % SODIUM CHLORIDE 50 ML IV (05:45)
--- NOTE | 2023-10-21 05:48 | P.HP_ITS ---
History of Present Illness *Admission Date: 10/21/23 *Reason for visit:: weakness *History of present illness: This is a 68-year-old female with history of COPD, paroxysmal A-fib, coronary artery disease, peripheral artery disease presents with multiple complaints. patient c/o that she has been feeling weak and dizzy starting at around 830 last night. She denies any specific chest pain abdominal pain shortness of breath. She reports that she did not had any more significant cough or sputum production and normal. She does feel some nausea but not more than normal. admitted for treatment [facility] Disclaimer: The information contained in this section may have been updated after the patient was seen, as this information can be updated by other users. Medical History Decreased muscle strength Unsteady gait Respiratory failure with hypoxia and hypercapnia COPD exacerbation Encounter for screening for malignant neoplasm of lung Family history of asthma COPD mixed type Smoking greater than 30 pack years SOB (shortness of breath) on exertion Chronic respiratory failure with hypoxia O2 dependent Presence of arterial stent H/O Hampton's palsy Sinus tachycardia Hypertrophic obstructive cardiomyopathy (2020) Cardiac cath Vitamin D deficiency Hampton's palsy Depression PTSD (post-traumatic stress disorder) Insomnia Chronic pain COPD exacerbation Pulmonary nodule CAD (coronary artery disease) HLD (hyperlipidemia) PAD (peripheral artery disease) HTN (hypertension) Anxiety Lung nodule seen on imaging study Surgical History Appendicolith S/P peripheral artery angioplasty with stent placement Family History Other Family history of hypertension Social History Smoking Status: Current every day smoker tobacco type: cigarettes packs per d ay: 1 second hand exposure: No alcohol intake: never substance use type: denies use current occupational status: retired Travel in the last 8 weeks: None household members: children and none housing: house lives independently: No Review of Systems Review of Systems Review of systems:: pertinent systems reviewed and negative unless documented below Meds Home Medications and Allergies Home Medications Medication Instructions Recorded Confirmed Type citalopram 10 mg tablet 10 mg PO DAILY #90 tabs 08/04/23 10/05/23 Rx fluticasone fur. 100 mcg-umeclid 1 ea inhalation DAILY #60 ea 08/04/23 10/05/23 Rx 62.5 mcg-vilant 25 mcg inhalat.powder (Trelegy Ellipta) ipratropium 0.5 mg-albuterol 3 mg 3 ml inhalation QIDP PRN Shortness 08/04/23 10/05/23 Rx (2.5 mg base)/3 mL nebulization Of Breath Or Wheezing #180 mL soln melatonin 5 mg tablet 5 mg PO HS #90 tabs 08/04/23 10/05/23 Rx lisinopril 2.5 mg tablet See Rx Instructions .Route 08/07/23 10/05/23 Rx .COMPLEX #90 tabs apixaban 5 mg tablet (Eliquis) 2.5 mg (1/2 x 5 mg) PO BID Blood 08/18/23 10/05/23 Rx Thinner/AFIB 30 days #30 tabs albuterol sulfate 90 mcg/actuation 2 puff inhalation Q4HP PRN 10/05/23 10/05/23 Rx aerosol inhaler Shortness Of Breath #8.5 grams clonazepam 1 mg tablet (Klonopin) 1 mg PO BID Anxiety 30 days #60 10/05/23 10/05/23 Rx tabs gabapentin 600 mg tablet 600 mg PO BID NEUROPATHY 30 days 10/05/23 10/05/23 Rx #60 tabs ondansetron 4 mg disintegrating 4 mg PO Q8H PRN nausea and 10/05/23 10/05/23 Rx tablet vomiting #30 tabs pantoprazole 40 mg tablet,delayed 40 mg PO DAILY GERD #90 tabs 10/05/23 10/05/23 Rx release atorvastatin 10 mg tablet 10 mg PO HS Cholesterol #100 tabs 10/18/23 Rx metoprolol succinate 25 mg 25 mg PO DAILY High Blood Pressure 10/20/23 Rx tablet,extended release 24 hr #90 tabs New Prescriptions to Start Prescriptions: Allergies Allergy/AdvReac Type Severity Reaction Status Date / Time levofloxacin Allergy Intermediate blisters Verified 10/21/23 05:00 in mouth, diarrhea Exam Data for Last 24 hours Vital signs and Labs for Last 24 Hours: Temp Pulse Resp BP Pulse Ox O2 Del Method O2 Flow Rate 102.0 F H 101 H 23 138/74 97 Nasal Cannula 3 10/21/23 05:06 10/21/23 04:50 10/21/23 04:50 10/21/23 04:50 10/21/23 04:50 10/21/23 04:50 10/21/23 04:50 Laboratory Results - last 24 hr 10/21/23 04:45: SARS-CoV-2 (PCR) Not detected, Influenza A Untype (PCR) Not detected, Influenza Type B (PCR) Not detected 10/21/23 04:52: WBC 4.9, RBC 4.27, Hgb 13.0, Hct 39.0, MCV 91.4, MCH 30.4, MCHC 33.2, RDW 14.0, Plt Count 118 L, MPV 10.0, Neut % (Auto) 80.2 H, Lymph % (Auto) 6.8 L, [place] % (Auto) 7.3, Eos % (Auto) 3.2, Baso % (Auto) 2.5 H, Neut # (Auto) 3.9, Lymph # (Auto) 0.3 L, [place] # (Auto) 0.4, Eos # (Auto) 0.2, Baso # (Auto) 0.1, Sodium 137, Potassium 4.3, Chloride 104, Carbon Dioxide 28, Anion Gap 9.3, BUN 12, Creatinine 0.70, Estimated Creat Clear 44, Estimated GFR 83, Est GFR ( Amer) 100, Glucose 116 H, Calcium 9.2, Magnesium 1.8, Total Bilirubin 0.5, AST 46 H, ALT 33, Alkaline Phosphatase 134 H, Troponin I < 0.01, Total Protein 6.8, Albumin 3.7, Globulin 3.1, Albumin/Globulin Ratio 1.2 10/21/23 04:54: VBG pH 7.38, VBG pCO2 43.9, VBG pO2 98.8 H, VBG HCO3 25.3, VBG Total CO2 26.6, VBG O2 Saturation 97.4 H, VBG Base Excess 0.1, VBG Lactic Acid 0.9 10/21/23 05:05: Urine Color Yellow, Urine Appearance Cloudy, Urine pH 8.0, Ur Specific [place] 1.020, Urine Protein Negative, Urine Glucose (UA) Negative, Urine Ketones Negative, Urine Blood Negative, Urine Nitrate Negative, Urine Bilirubin Negative, Urine Urobilinogen 1.0, Ur Leukocyte Esterase Trace, Urine RBC Occasional, Urine WBC Occasional, Ur Squamous Epith Cells Occasional, Amorphous Sediment 2+, Urine Bacteria 1+ Temp Pulse Resp BP Pulse Ox O2 Del Method O2 Flow Rate 98.4 F 104 H 26 H 114/58 L 100 Nasal Cannula 4 05/13/23 20:35 05/13/23 23:14 05/13/23 20:35 05/13/23 20:35 05/13/23 23:14 05/13/23 23:14 05/13/23 23:14 Laboratory Results - last 24 hr 05/13/23 18:19: WBC 11.8 H D, RBC 3.55 L, Hgb 7.7 L, Hct 25.2 L, MCV 71.0 L, MCH 21.6 L, MCHC 30.3 L, RDW 18.7 H, Plt Count 239, MPV 8.1, Neut % (Auto) 92.8 H, Lymph % (Auto) 3.4 L, [place] % (Auto) 2.8, Eos % (Auto) 0.9, Baso % (Auto) 0.1, Neut # (Auto) 11.0 H, Lymph # (Auto) 0.4 L, [place] # (Auto) 0.3, Eos # (Auto) 0.1, Baso # (Auto) 0.0, Total Counted 100, Neutrophils % (Manual) 93 H, Lymphocytes % (Manual) 5 L, Monocytes % (Manual) 2, Platelet Estimate Normal, Microcytosis 1+, PT 10.3, INR 0.95, Sodium 139, Potassium 4.1, Chloride 105, Carbon Dioxide 30, Anion Gap 8.1, BUN 15, Creatinine 0.80, Estimated Creat Clear 48, Estimated GFR 71, Est GFR ( Amer) 86, Glucose 137 H, Calcium 8.7, Magnesium 2.1, Total Bilirubin 0.6, AST 32 D, ALT 25, Alkaline Phosphatase 159 H, Total Protein 7.1, Albumin 3.8, Globulin 3.3 H, Albumin/Globulin Ratio 1.2 05/13/23 18:28: Lactate 1.0 05/13/23 18:31: VBG pH 7.38, VBG pCO2 45.0, VBG pO2 244.6 H, VBG HCO3 26.3, VBG Total CO2 27.6 H, VBG O2 Saturation 99.7 H, VBG Base Excess 1.2 05/13/23 19:16: Urine Color Yellow, Urine Appearance Clear, Urine pH 7.0, Ur Specific [place] 1.010, Urine Protein Trace, Urine Glucose (UA) Negative, Urine Ketones Negative, Urine Blood Negative, Urine Nitrate Negative, Urine Bilirubin Negative, Urine Urobilinogen 1.0, Ur Leukocyte Esterase 1+ A, Urine RBC None, Urine WBC 5-10, Ur Squamous Epith Cells None, Urine Bacteria None 05/13/23 21:30: SARS-CoV-2 (PCR) Not detected, Influenza A Untype (PCR) Not detected, Influenza Type B (PCR) Not detected I & O for Last 24 hours: Intake & Output 10/18/23 10/19/23 10/20/23 10/21/23 23:59 23:59 23:59 23:59 Weight 52.163 kg Intake & Output 05/10/23 05/11/23 05/12/23 05/13/23 23:59 23:59 23:59 23:59 Weight 57.334 kg Constitutional Constitutional: no acute distress, thin and cooperative *Routine HEENT Exam Head: Present normocephalic and atraumatic Eye: Present EOMI and PERRL ENT: Present mucous membranes moist *Routine Neck Exam Neck: Present supple and full ROM *Routine Respiratory Exam Respiratory: Present wheezes, crackles, diminished air movement and symmetric chest movement *Routine Cardiovascular Exam Cardiovascular: Present RRR, Normal S1, Normal S2 and tachycardia *Routine Abdominal Exam Abdominal: Present soft and normoactive bowel sounds Comments: Unable to appreciate abdominal tenderness *Routine Rectal Exam Rectal:: deferred *Routine Genitalia Exam Genitalia:: deferred *Routine Extremities Exam Extremities: Present full ROM, pulses intact and normal capillary refill *Routine Skin Exam Skin: Present intact and dry *Routine Neurological Exam Neurological: Present alert and altered mental status (Mild encephalopathy) H&P: Result Imaging and Cardiology EKG: Status: image reviewed by me, Preliminary report and final report Chest x-ray: Status: image reviewed by me, Preliminary report and final report Assessment and Plan *Assessment and plan (1) Sepsis: Status: Resolved Qualifiers: Sepsis acute organ dysfunction status: without acute organ dysfunction Sepsis type: sepsis due to unspecified organism Qualified Code(s): A41.9 - Sepsis, unspecified organism Category: Medical Code(s): A41.9 - Sepsis, unspecified organism (2) Fever: Status: Acute Qualifiers: Fever type: unspecified Qualified Code(s): R50.9 - Fever, unspecified Category: Medical Code(s): R50.9 - Fever, unspecified (3) Pneumonia: Status: Acute Qualifiers: Laterality: left Lung location: lower lobe of lung Pneumonia type: due to unspecified organism Qualified Code(s): J18.9 - Pneumonia, unspecified organism Category: Medical Code(s): J18.9 - Pneumonia, unspecified organism (4) Acute UTI: Status: Resolved Category: Medical Code(s): N39.0 - Urinary tract infection, site not specified (5) CAD (coronary artery disease): Status: Chronic Qualifiers: Associated angina: without angina Coronary Disease-Associated Artery/Lesion type: [place] artery [place] vs. transplanted heart: [place] heart Qualified Code(s): I25.10 - Atherosclerotic heart disease of [place] coronary artery without angina pectoris Category: Medical Code(s): I25.10 - Atherosclerotic heart disease of [place] coronary artery without angina pectoris (6) Tobacco use disorder: Status: Chronic Category: Medical Code(s): F17.200 - Nicotine dependence, unspecified, uncomplicated (7) COPD mixed type: Status: Chronic Category: Medical Code(s): J44.9 - Chronic obstructive pulmonary disease, unspecified Plan 68-year-old female with history of COPD, paroxysmal A-fib, coronary artery disease, peripheral artery disease presents with multiple complaints. patient c/o that she has been feeling weak and dizzy. presented with fever. CXR showed bilateral lower pna. UA suspected UTI. culture pending ED requested admission. Agreed for it. Discussed with provider. Plan as follow: Sepsis fever from unknown sources. Meets Criteria for fever, Tmax of 102, leukocytosis, tachycardia, r/o bacterimia Likely secondary to pneumonia Received 30ml/kg fluid administration Lactic acid negative Continue broad Vanco and zoxyn Monitor inflammatory markers Antipyretics as needed COPD Continue bronchodilators Continue corticosteroids Pneumonia Left lower lobe infiltrate noted on x-ray COVID and flu negative As above Currently on 4 L nasal cannula, patient's baseline Acute cystitis Mild, will be treated with Rocephin Anemia History of DESTINY Hemoglobin hematocrit stable, at baseline No episodes of bleeding Continue ferrous sulfate Coronary artery disease Continue Home Eliquis Continue home statin medication Hypertension Continue home lisinopril DVT ppx Home Eliquis DNR/DNI
--- NOTE | 2023-10-21 05:51 | PC.NURSE ---
Nurse to nurse report given to Jaci KING
[2023-10-21] MEDS: VANCOMYCIN HCL 1,000 MG in 0.9 % SODIUM CHLORIDE 250 ML 125 MG IV (06:04)
[2023-10-21 06:05] LABS: Lactic Acid 0.6 mmol/L (0.7-2.1)
--- NOTE | 2023-10-21 06:26 | PC.NURSE ---
Patient arrived to floor via stretcher from ED at 6:18.
[2023-10-21 08:42] LABS: Basophils # 0.1 K/mm3 (0-0.2); Basophils % 1.1 % (0.1-2.0); Eosinophils # 0.1 K/mm3 (0.0-0.4); Eosinophils % 1.3 % (0.1-12.0); Hematocrit 35.9 % (37.0-47.0); Hemoglobin 11.8 g/dL (12.2-16.2); Lymphocytes # 0.5 K/mm3 (0.7-4.5); Lymphocytes % 10.6 % (10-50); Mean Corpuscular Hemoglobin 30.2 pg (27.0-31.2); Mean Corpuscular Volume 91.6 fl (81-99); Mean Platelet Volume 9.9 fl (7.4-10.4); Monocytes # 0.4 K/mm3 (0.1-1.0); Monocytes % 8.6 % (1.7-9.3); Neutrophils # 3.7 K/mm3 (1.8-7.8); Neutrophils % 78.5 % (37.0-80.0); Platelet Count 110 K/mm3 (142-424); Red Blood Count 3.92 M/mm3 (4.20-5.40); Red Cell Distribution Width 14.3 % (11.5-17.5); White Blood Count 4.7 K/mm3 (4.8-10.8)
[2023-10-21 08:45] LABS: Alanine Aminotransferase 36 U/L (12-78); Albumin Level 3.1 g/dl (3.5-5.0); Albumin/Globulin Ratio 1.1 (1.1-1.8); Alkaline Phosphatase 108 U/L (38-126); Aspartate Amino Transferase 51 U/L (14-36); Bilirubin,Total 0.4 mg/dl (0.2-1.3); Blood Urea Nitrogen 10 mg/dl (7-17); Calcium 8.7 mg/dl (8.4-10.2); Carbon Dioxide 29 mmol/L (22.0-30.0); Chloride 106 mmol/L (98-107); Creatinine Clearance Estimated 44 mL/min (50-200); Estimated Glomerular Filt Rate 83 ml/min (>60); GFR (African American) 100 ML/MIN (>60); Globulin 2.7 g/dL (1.3-3.2); Glucose 106 mg/dl (74-100); Magnesium 1.8 mg/dl (1.6-2.3); Sodium 138 mmol/L (136-145); Total Protein,Serum 5.8 g/dl (6.3-8.2)
[2023-10-21] MEDS: DOCUSATE SODIUM 100 MG CAPSULE PO (09:13)
[2023-10-21] MEDS: PANTOPRAZOLE 40MG TABLET 40 MG PO (09:13)
[2023-10-21 09:45] LABS: Troponin I < 0.01 ng/ml (0.00-0.034)
[2023-10-21] MEDS: FLUTICASONE/UMECLIDIN/VILANTER 100/62.5/25MCG INHALER 1 PUFF IH (12:41)
[2023-10-21] MEDS: APIXABAN 5MG TABLET 2.5 MG PO ×2 (13:15→21:29)
[2023-10-21] MEDS: LISINOPRIL 2.5MG TABLET 2.5 MG PO (13:15)
[2023-10-21] MEDS: clonazePAM 1MG TABLET 1 MG PO ×2 (13:15→21:29)
[2023-10-21] MEDS: CITALOPRAM 10MG TABLET 10 MG PO (13:15)
[2023-10-21] MEDS: METOPROLOL SUCCINATE XL 25MG TABLET 25 MG PO (13:15)
[2023-10-21] MEDS: GABAPENTIN 600MG TABLET 600 MG PO ×2 (13:15→21:29)
--- NOTE | 2023-10-21 14:22 | P.CONPHA_ITS ---
Pharmacy Consult Date: 10/21/23 Time: 14:23 Referring provider: DR. TERRELL Reason for Consult:: VANCOMYCIN DOSING Allergies Allergy/AdvReac Type Severity Reaction Status Date / Time levofloxacin Allergy Intermediate blisters Verified 10/21/23 05:00 in mouth, diarrhea Home Medications Medication Instructions Recorded Confirmed Type citalopram 10 mg tablet 10 mg PO DAILY #90 tabs 08/04/23 10/21/23 Rx fluticasone fur. 100 mcg-umeclid 1 ea inhalation DAILY #60 ea 08/04/23 10/21/23 Rx 62.5 mcg-vilant 25 mcg inhalat.powder (Trelegy Ellipta) melatonin 5 mg tablet 5 mg PO HS #90 tabs 08/04/23 10/21/23 Rx apixaban 5 mg tablet (Eliquis) 2.5 mg (1/2 x 5 mg) PO BID Blood 08/18/23 10/21/23 Rx Thinner/AFIB 30 days #30 tabs albuterol sulfate 90 mcg/actuation 2 puff inhalation Q4HP PRN 10/05/23 10/21/23 Rx aerosol inhaler Shortness Of Breath #8.5 grams clonazepam 1 mg tablet (Klonopin) 1 mg PO BID Anxiety 30 days #60 10/05/23 10/21/23 Rx tabs gabapentin 600 mg tablet 600 mg PO BID NEUROPATHY 30 days 10/05/23 10/21/23 Rx #60 tabs ondansetron 4 mg disintegrating 4 mg PO Q8H PRN nausea and 10/05/23 10/21/23 Rx tablet vomiting #30 tabs pantoprazole 40 mg tablet,delayed 40 mg PO DAILY GERD #90 tabs 10/05/23 10/21/23 Rx release atorvastatin 10 mg tablet 10 mg PO HS Cholesterol #100 tabs 10/18/23 10/21/23 Rx metoprolol succinate 25 mg 25 mg PO DAILY High Blood Pressure 10/20/23 10/21/23 Rx tablet,extended release 24 hr #90 tabs lisinopril 2.5 mg tablet 2.5 mg PO DAILY 10/21/23 10/21/23 History New Prescriptions to Start Prescriptions: Height: 1.57 m Weight: 52.163 kg Laboratory Results:: Laboratory Results - last 24 hr 10/21/23 04:45: SARS-CoV-2 (PCR) Not detected, Influenza A Untype (PCR) Not detected, Influenza Type B (PCR) Not detected 10/21/23 04:52: WBC 4.9, RBC 4.27, Hgb 13.0, Hct 39.0, MCV 91.4, MCH 30.4, MCHC 33.2, RDW 14.0, Plt Count 118 L, MPV 10.0, Neut % (Auto) 80.2 H, Lymph % (Auto) 6.8 L, [place] % (Auto) 7.3, Eos % (Auto) 3.2, Baso % (Auto) 2.5 H, Neut # (Auto) 3.9, Lymph # (Auto) 0.3 L, [place] # (Auto) 0.4, Eos # (Auto) 0.2, Baso # (Auto) 0.1, Sodium 137, Potassium 4.3, Chloride 104, Carbon Dioxide 28, Anion Gap 9.3, BUN 12, Creatinine 0.70, Estimated Creat Clear 44, Estimated GFR 83, Est GFR ( Amer) 100, Glucose 116 H, Lactate 0.6 L, Calcium 9.2, Magnesium 1.8, Total Bilirubin 0.5, AST 46 H, ALT 33, Alkaline Phosphatase 134 H, Troponin I < 0.01, Total Protein 6.8, Albumin 3.7, Globulin 3.1, Albumin/Globulin Ratio 1.2 10/21/23 04:54: VBG pH 7.38, VBG pCO2 43.9, VBG pO2 98.8 H, VBG HCO3 25.3, VBG Total CO2 26.6, VBG O2 Saturation 97.4 H, VBG Base Excess 0.1, VBG Lactic Acid 0.9 10/21/23 05:05: Urine Color Yellow, Urine Appearance Cloudy, Urine pH 8.0, Ur Specific [place] 1.020, Urine Protein Negative, Urine Glucose (UA) Negative, Urine Ketones Negative, Urine Blood Negative, Urine Nitrate Negative, Urine Bilirubin Negative, Urine Urobilinogen 1.0, Ur Leukocyte Esterase Trace, Urine RBC Occasional, Urine WBC Occasional, Ur Squamous Epith Cells Occasional, Amorphous Sediment 2+, Urine Bacteria 1+ 10/21/23 07:50: WBC 4.7 L, RBC 3.92 L, Hgb 11.8 L, Hct 35.9 L, MCV 91.6, MCH 30.2, MCHC 33.0, RDW 14.3, Plt Count 110 L, MPV 9.9, Neut % (Auto) 78.5, Lymph % (Auto) 10.6, [place] % (Auto) 8.6, Eos % (Auto) 1.3, Baso % (Auto) 1.1, Neut # (Auto) 3.7, Lymph # (Auto) 0.5 L, [place] # (Auto) 0.4, Eos # (Auto) 0.1, Baso # (Auto) 0.1, Sodium 138, Potassium 4.0, Chloride 106, Carbon Dioxide 29, Anion Gap 7.0, BUN 10, Creatinine 0.70, Estimated Creat Clear 44, Estimated GFR 83, Est GFR ( Amer) 100, Glucose 106 H, Calcium 8.7, Magnesium 1.8, Total Bilirubin 0.4, AST 51 H, ALT 36, Alkaline Phosphatase 108, Troponin I < 0.01, Total Protein 5.8 L, Albumin 3.1 L D, Globulin 2.7, Albumin/Globulin Ratio 1.1 Medical History: Medical History (Updated 10/21/23 @ 07:38 by Sony Jim APRN) Decreased muscle strength Unsteady gait Respiratory failure with hypoxia and hypercapnia COPD exacerbation Encounter for screening for malignant neoplasm of lung Family history of asthma COPD mixed type Smoking greater than 30 pack years SOB (shortness of breath) on exertion Chronic respiratory failure with hypoxia Presence of arterial stent H/O Hampton's palsy Sinus tachycardia Hypertrophic obstructive cardiomyopathy Vitamin D deficiency Hampton's palsy Depression PTSD (post-traumatic stress disorder) Insomnia Chronic pain COPD exacerbation Pulmonary nodule CAD (coronary artery disease) HLD (hyperlipidemia) PAD (peripheral artery disease) HTN (hypertension) Anxiety Lung nodule seen on imaging study Assessment and Plan Assessment and plan all Dx Assessment and Plan for all problems:: Pharmacokinetic dosing service Date: Time: Objective: Patient: Floor: Age: 68 yo Serum creatinine: 1 mg/dL Height: 62.0 Inches Weight (kg): 52.1 Assessment: IBW (kg): 50.10 Dosing wt(kg): 52.1 Estimated Creatinine clearance (ml/min): 42.0 CRCL method: Cockcroft and Gault using ibw(default). Drug selected: Vancomycin Loading dose (mg): 0 Vd (liters): 44.3 (factor used: 0.85 L/kg) Alphonso (hr-1): 0.039 Half life (hrs): 17.77 Recommended dose: 1000 mg Interval: 24 hrs Infusion time (hrs): 2.0 Predicted peak (mcg/mL): 35.7 Predicted trough (mcg/mL): 15.14 Total body weight is being used for vancomycin dosing. Recommendations: Give Vancomycin 1000 mg q 24 hrs with an expected Cpeak of 35.7 mcg/ml and an expected Ctrough of 15.14 mcg/ml ----Vanco only - ignore for aminoglycosides----- CLvanco= 1.73 L/hr AUC 0-24 /BROCK Data: BROCK 0.5 mcg/mL: AUC/BROCK: 1156.1 BROCK 1.0 mcg/mL: AUC/BROCK: 578.0 --------- BROCK 1.5 mcg/mL: AUC/BROCK: 385.4 BROCK 2.0 mcg/mL: AUC/BROCK: 289.0
--- NOTE | 2023-10-21 14:43 | HMH.PTEV ---
Physical Therapy Evaluation Rehab PT IP Evaluation Start: 10/21/23 10:25 Freq: ONCE Status: Active Protocol: Document 10/21/23 14:38 PHORNE (Rec: 10/21/23 14:43 PHORNE Laptop) Subjective/History History History 68 yowf adm to [facility] with generalized weakness and sepsis. She has PMH of COPD, paroxysmal A-fib, coronary artery disease, peripheral artery disease. She reports she lives with daughter, 2 CHRISTIAN the home, and she uses a RW for ambulation at baseline. Subjective Subjective Pt has no c/o pain at this time, reports not feeling well in general, but no specific c /o. She agrees to mobility assessment. New diagnosis of cancer in past 12 No months? Rehab PT IP Eval Objective Appearance Patient Behavior Appropriate Patient Orientation Person,Place,Time Difficulty following instructions none Speech Pattern Clear Ambulation Patient Able to Ambulate Yes Ambulation Observation IP General Gait Pattern Observation Wide Based Gait Ambulation Distance (feet) 20 Ambulation Assistive Device Rolling Walker Ambulation Ability Independent Balance Ability to Arise Able, uses arms to help Sitting Balance Steady, safe Standing Balance Steady, wide stance Dynamic Sitting Balance Ability Good Dynamic Standing Balance Ability Good Transfers Bed Transfer Ability Independent Chair Transfer Ability Independent Sit to Stand Bed Transfer Ability Independent Sit to Stand Chair Transfer Ability Independent Rehab PT IP prob,goals,plan Problems Date of Evaluation: 10/21/23 Discharge Plan PT Discharge Plan Pt is currently independent with all mobility and appears to be at her baseline status for ambulation. She is appropriate to return home once medically stable for d/c. No current inpatient therapy needs. Eval Complexity Eval Charge Codes 68097 - High Complexity PHYSICIAN CERTIFICATION: I certify the specified therapy services for Johanny Hurst are required, authorized, and reviewed every 30 days.
[2023-10-21] MEDS: PIPERACILLIN/TAZO 4.5 GM in 0.9 % SODIUM CHLORIDE 100 ML IV ×2 (14:45→21:29)
--- NOTE | 2023-10-21 17:58 | PC.NURSE ---
Patient has slept most of the shift. Alert & oriented x4. O2 stating 94-99% on 3L NC which is patients baseline. Patient has complained of some nausea this shift and was treated per AUG. Otherwise, no other complaints and patient is resting in bed. Call light within reach.
[2023-10-21] MEDS: NICOTINE 21MG/24HR PATCH 21 MG TD (18:25)
[2023-10-21] MEDS: MELATONIN 5MG TABLET 5 MG PO (21:29)
[2023-10-21] MEDS: ATORVASTATIN 10MG TABLET 10 MG PO (21:29)
[2023-10-22] VITALS (7 sets, daily range): BP systolic 107–165; BP diastolic 53–62; PULSE 59–79; RESP 16–20; TEMP 36.5–37.1; O2SAT 90–100; BMI 21.6
[2023-10-22] MEDS: PIPERACILLIN/TAZO 4.5 GM in 0.9 % SODIUM CHLORIDE 100 ML IV ×4 (02:01→20:09)
[2023-10-22] MEDS: MORPHINE 2MG/ML SYRINGE 2 MG IV (02:02)
[2023-10-22] MEDS: ONDANSETRON 4MG/2ML VIAL 4 MG IV ×2 (02:07→14:01)
--- NOTE | 2023-10-22 05:42 | PC.NURSE ---
Patient hasn't rested well tonight. c/o back pain and received morphine and promptly after, zofran (no emesis). She ambulated to the toilet with standby assist and had a BM.
[2023-10-22 06:31] LABS: Basophils # 0.1 K/mm3 (0-0.2); Basophils % 2.3 % (0.1-2.0); Eosinophils # 0.1 K/mm3 (0.0-0.4); Eosinophils % 1.9 % (0.1-12.0); Hematocrit 38.6 % (37.0-47.0); Hemoglobin 12.3 g/dL (12.2-16.2); Lymphocytes # 1.1 K/mm3 (0.7-4.5); Lymphocytes % 23.9 % (10-50); Mean Corpuscular HGB Conc 31.9 g/dL (31.8-35.4); Mean Corpuscular Hemoglobin 29.6 pg (27.0-31.2); Mean Platelet Volume 10.5 fl (7.4-10.4); Monocytes # 0.4 K/mm3 (0.1-1.0); Monocytes % 9.1 % (1.7-9.3); Neutrophils # 2.9 K/mm3 (1.8-7.8); Neutrophils % 62.8 % (37.0-80.0); Platelet Count 107 K/mm3 (142-424); Red Blood Count 4.15 M/mm3 (4.20-5.40); White Blood Count 4.6 K/mm3 (4.8-10.8)
[2023-10-22 06:37] LABS: Anion Gap 4.7 mEq/L (5-15); Blood Urea Nitrogen 9 mg/dl (7-17); Calcium 8.7 mg/dl (8.4-10.2); Carbon Dioxide 33 mmol/L (22.0-30.0); Chloride 103 mmol/L (98-107); Creatinine Clearance Estimated 45 mL/min (50-200); Estimated Glomerular Filt Rate 71 ml/min (>60); GFR (African American) 86 ML/MIN (>60); Glucose 99 mg/dl (74-100); Potassium 3.7 mmoL/L (3.5-5.1); Sodium 137 mmol/L (136-145)
[2023-10-22] MEDS: FLUTICASONE/UMECLIDIN/VILANTER 100/62.5/25MCG INHALER 1 PUFF IH (06:59)
[2023-10-22] MEDS: VANCOMYCIN HCL 1,000 MG in 0.9 % SODIUM CHLORIDE 250 ML 125 MG IV (08:24)
[2023-10-22] MEDS: APIXABAN 5MG TABLET 2.5 MG PO ×2 (08:24→20:08)
[2023-10-22] MEDS: CITALOPRAM 10MG TABLET 10 MG PO (08:24)
[2023-10-22] MEDS: clonazePAM 1MG TABLET 1 MG PO ×2 (08:24→20:08)
[2023-10-22] MEDS: GABAPENTIN 600MG TABLET 600 MG PO ×2 (08:25→20:08)
[2023-10-22] MEDS: METOPROLOL SUCCINATE XL 25MG TABLET 25 MG PO (08:25)
[2023-10-22] MEDS: LISINOPRIL 2.5MG TABLET 2.5 MG PO (08:25)
[2023-10-22] MEDS: DOCUSATE SODIUM 100 MG CAPSULE PO (08:25)
[2023-10-22] MEDS: PANTOPRAZOLE 40MG TABLET 40 MG PO (08:25)
--- NOTE | 2023-10-22 15:59 | P.PN_ITS ---
Subjective *Date: 10/22/23 *Time: 15:59 Interval history: seen at bedside, feeling better, denied CP, SOB, N/V Exam Data for Last 24 hours Vital signs and Labs for Last 24 Hours: Temp Pulse Resp BP Pulse Ox O2 Del Method O2 Flow Rate 97.8 F 59 L 16 128/56 L 99 Nasal Cannula 3 10/22/23 15:54 10/22/23 15:54 10/22/23 15:54 10/22/23 15:54 10/22/23 15:54 10/22/23 15:54 10/22/23 15:54 Laboratory Results - last 24 hr 10/22/23 06:00: WBC 4.6 L, RBC 4.15 L, Hgb 12.3, Hct 38.6, MCV 93.0, MCH 29.6, MCHC 31.9, RDW 14.0, Plt Count 107 L, MPV 10.5 H, Neut % (Auto) 62.8, Lymph % (Auto) 23.9, [place] % (Auto) 9.1, Eos % (Auto) 1.9, Baso % (Auto) 2.3 H, Neut # (Auto) 2.9, Lymph # (Auto) 1.1, [place] # (Auto) 0.4, Eos # (Auto) 0.1, Baso # (Auto) 0.1, Sodium 137, Potassium 3.7, Chloride 103, Carbon Dioxide 33 H, Anion Gap 4.7 L, BUN 9, Creatinine 0.80, Estimated Creat Clear 45, Estimated GFR 71, Est GFR ( Amer) 86, Glucose 99, Calcium 8.7 I & O for Last 24 hours: Intake & Output 10/19/23 10/20/23 10/21/23 10/22/23 23:59 23:59 23:59 23:59 Intake Total 820 / 820 465 / 465 Output Total 0 / 0 0 / 0 Balance 820 / 820 465 / 465 Weight 52.163 kg 53.342 kg Microbiology Reports for the Last 24 Hours: Microbiology 10/21/23 05:05 Blood Blood Culture - Preliminary Constitutional Constitutional: no acute distress *Routine HEENT Exam Head: Present normocephalic Eye: Present EOMI and PERRL ENT: Present mucous membranes moist *Routine Neck Exam Neck: Present supple; Absent lymphadenopathy *Routine Respiratory Exam Respiratory: Present CTA bilaterally *Routine Cardiovascular Exam Cardiovascular: Present RRR *Routine Abdominal Exam Abdominal: Present soft and normoactive bowel sounds; Absent tenderness *Routine Extremities Exam Extremities: Absent cyanosis, clubbing or edema *Routine Skin Exam Skin: Present warm; Absent rash *Routine Neurological Exam Neurological: Present alert and oriented X3 Assessment and Plan *Assessment and plan (1) Sepsis: Status: Resolved Qualifiers: Sepsis acute organ dysfunction status: without acute organ dysfunction Sepsis type: sepsis due to unspecified organism Qualified Code(s): A41.9 - Sepsis, unspecified organism Category: Medical Code(s): A41.9 - Sepsis, unspecified organism (2) Fever: Status: Acute Qualifiers: Fever type: unspecified Qualified Code(s): R50.9 - Fever, unspecified Category: Medical Code(s): R50.9 - Fever, unspecified (3) Pneumonia: Status: Acute Qualifiers: Laterality: left Lung location: lower lobe of lung Pneumonia type: due to unspecified organism Qualified Code(s): J18.9 - Pneumonia, unspecified organism Category: Medical Code(s): J18.9 - Pneumonia, unspecified organism (4) Acute UTI: Status: Resolved Category: Medical Code(s): N39.0 - Urinary tract infection, site not specified (5) CAD (coronary artery disease): Status: Chronic Qualifiers: Coronary Disease-Associated Artery/Lesion type: [place] artery [place] vs. transplanted heart: [place] heart Associated angina: without angina Qualified Code(s): I25.10 - Atherosclerotic heart disease of [place] coronary artery without angina pectoris Category: Medical Code(s): I25.10 - Atherosclerotic heart disease of [place] coronary artery without angina pectoris (6) Tobacco use disorder: Status: Chronic Category: Medical Code(s): F17.200 - Nicotine dependence, unspecified, uncomplicated (7) COPD mixed type: Status: Chronic Category: Medical Code(s): J44.9 - Chronic obstructive pulmonary disease, unspecified Plan 68-year-old female with history of COPD, paroxysmal A-fib, coronary artery disease, peripheral artery disease presents with multiple complaints. patient c/o that she has been feeling weak and dizzy. presented with fever. CXR showed bilateral lower pna. UA suspected UTI. culture pending ED requested admission. Agreed for it. Discussed with provider. Plan as follow: Sepsis fever from unknown sources. Meets Criteria for fever, Tmax of 102, leukocytosis, tachycardia, r/o bacterimia Likely secondary to pneumonia Lactic acid negative Continue broad Vanco and zoxyn COPD Continue bronchodilators Continue corticosteroids Pneumonia Left lower lobe infiltrate noted on x-ray COVID and flu negative As above Currently on 4 L nasal cannula, patient's baseline Acute cystitis Mild, will be treated with Rocephin Anemia History of DESTINY Hemoglobin hematocrit stable, at baseline No episodes of bleeding Continue ferrous sulfate Coronary artery disease Continue Home Eliquis Continue home statin medication Hypertension Continue home lisinopril DVT ppx Home Eliquis DNR/DNI plan is to continue abx, repeat blood cultures, likely dc tomorrow
[2023-10-22] MEDS: MELATONIN 5MG TABLET 5 MG PO (20:08)
[2023-10-22] MEDS: ATORVASTATIN 10MG TABLET 10 MG PO (20:08)
[2023-10-23] VITALS (7 sets, daily range): BP systolic 106–155; BP diastolic 48–65; PULSE 61–80; RESP 16–22; TEMP 36.4–36.8; O2SAT 95–100; BMI 20.9
[2023-10-23] MEDS: PIPERACILLIN/TAZO 4.5 GM in 0.9 % SODIUM CHLORIDE 100 ML IV ×3 (03:09→14:09)
[2023-10-23] MEDS: MORPHINE 2MG/ML SYRINGE 2 MG IV (03:12)
[2023-10-23] MEDS: ONDANSETRON 4MG/2ML VIAL 4 MG IV (03:12)
[2023-10-23] MEDS: FLUTICASONE/UMECLIDIN/VILANTER 100/62.5/25MCG INHALER 1 PUFF IH (06:21)
--- OUTSIDE RECORDS SUMMARY | 2023-10-23 07:47 | XMS_ITS ---
Author Name Gagan Vásquez Address [address] [place] [address] Organization Unknown Address [address] [place] [address] ALLERGIES AND ADVERSE REACTIONS No information ASSESSMENT No information CHIEF COMPLAINT No information MEDICATIONS No information OBJECTIVE DATA No information PHYSICAL EXAMINATION No information TREATMENT PLAN Planned Care Start Date Provider Encounter for Check-up [id number] [facility] PROBLEMS No information RESULTS No information REVIEW OF SYSTEMS No information SUBJECTIVE DATA No information VITAL SIGNS No information
[2023-10-23] MEDS: PANTOPRAZOLE 40MG TABLET 40 MG PO (08:25)
[2023-10-23] MEDS: DOCUSATE SODIUM 100 MG CAPSULE PO (08:25)
[2023-10-23] MEDS: GABAPENTIN 600MG TABLET 600 MG PO (08:25)
[2023-10-23] MEDS: LISINOPRIL 2.5MG TABLET 2.5 MG PO (08:26)
[2023-10-23] MEDS: CITALOPRAM 10MG TABLET 10 MG PO (08:26)
[2023-10-23] MEDS: METOPROLOL SUCCINATE XL 25MG TABLET 25 MG PO (08:26)
[2023-10-23] MEDS: APIXABAN 5MG TABLET 2.5 MG PO (08:27)
[2023-10-23] MEDS: clonazePAM 1MG TABLET 1 MG PO (08:29)
[2023-10-23] MEDS: VANCOMYCIN HCL 1,000 MG in 0.9 % SODIUM CHLORIDE 250 ML 125 MG IV (08:32)
[2023-10-23] MEDS: SODIUM CHLORIDE 3% 15ML NEB 3 ML IH (09:46)
[2023-10-23] MEDS: ACETAMINOPHEN 325MG TAB 650 MG PO (10:40)
--- NOTE | 2023-10-23 11:26 | HMH.OTEV ---
OT Inpatient Evaluation Rehab OT IP Evaluation Start: 10/21/23 10:25 Freq: ONCE Status: Active Protocol: Document 10/23/23 11:03 MIRNA (Rec: 10/23/23 11:23 GILTHOM [id number]) Rehab OT IP Assessment Subjective History Pt was admitted to this facility on 10/21/2023. Pt is a 68-year-old female with history of COPD, paroxysmal A- fib, coronary artery disease, peripheral artery disease presents with multiple complaints. patient c/o that she has been feeling weak and dizzy starting at around 830 last night. She denies any specific chest pain abdominal pain shortness of breath. She reports that she did not had any more significant cough or sputum production and normal. She does feel some nausea but not more than normal. admitted for treatment PLOF: Pt states they were independent in all ADLs prior to being admitted. Pt states they live with their daughter and her family. Pt states they use a rollator walker and they do not drive. Pt states they do not have any steps they have to go up in to enter house. Subjective What do you want me to do? Pt was supine in bed when therapy entered room. Pt was oriented X3. Pt was agreeable to participate in OT evaluation this morning. Pt was agreeable to get out of bed and move around. Pt was SBA to go from supine to sitting at EOB. Pt was able to hold static sitting balance at EOB for ~2 minutes. Pt then completed a sit to stand transfer with CGA. Pt then completed a functional mobility task of ~10 feet and displayed good endurance. Pt then sat back down to EOB with CGA. Pt then went from sitting at EOB to supine with SBA. Pt was left with call button and all other needs within reach. Pt will continue to be seen for LOS pending medical status and doctors orders to benefit from skilled OT services. Objective Patient Orientation Person,Place,Birthday Right Upper Extremity Gross ROM WFL Left Upper Extremity Gross ROM WFL Bed Mobility bed mobility-scooting,bed mobility - supine/sit Assist Level Supervision/Stand by Transfer Training Sit/Stand Transfer Assist Level Contact Guard/Hand Hold Rehab OT IP prob,goals,plan Problems Date of Evaluation: 10/23/23 OT IP Problems Bed Mobility,Transfers,Self care,Safety Rehab Potential Rehab Potential Good Equipment Needs Assistive Devices Standard Walker,Rolling / Wheeled Walker Plan OT intervention Plan Bed Mobility,Transfers,Self care,Safety,Therapeutic Exercise OT Plan Frequency Daily Duration LOS Discharge Goals Bed Mobility Ability Standby Assistance Sit to Stand Chair Transfer Ability Supervision/Stand by Discharge Plan OT Discharge Plan Pt will continue to be seen for skilled OT services while at this facility for IP services. Pending on medical status and doctors orders, it is recommended pt to be discharge to home with home health services. Eval Complexity Eval Charge Codes 26515 - Low Complexity PHYSICIAN CERTIFICATION: I certify the specified therapy services for Johanny Hurst are required, authorized, and reviewed every 30 days.
--- NOTE | 2023-10-23 14:58 | P.DS_ITS ---
General Admission date:: 10/21/23 Discharge date: 10/23/23 HPI HPI HPI: This is a 68-year-old female with history of COPD, paroxysmal A-fib, coronary artery disease, peripheral artery disease presents with multiple complaints. patient c/o that she has been feeling weak and dizzy starting at around 830 last night. She denies any specific chest pain abdominal pain shortness of breath. She reports that she did not had any more significant cough or sputum production and normal. She does feel some nausea but not more than normal. admitted for treatment Hospital Course Hospital Course Hospital Course: 68-year-old female with history of COPD, paroxysmal A-fib, coronary artery disease, peripheral artery disease presents with multiple complaints. patient c/o that she has been feeling weak and dizzy. presented with fever. CXR showed bilateral lower pna. UA suspected UTI. culture pending ED requested admission. Agreed for it. Discussed with provider. Plan as follow: Sepsis fever from unknown sources =, most likely from PNA - resolved sepsis resolved on antibiotics, no more fevers past 48hrs, initial blood cultures positive for Staph epidermidis which appeared to be contaminated, repeat cultures negative to date, DC on ciprfloxacin for pseudomonal coverage and Doxycylcine for MRSA, and atylicals. patient wishes to be discharged patient is stable for discharge and f/u with PCP in 1 week, total time spent 37 mints Exam Data for Last 24 hours Vital signs and Labs for Last 24 Hours: Temp Pulse Resp BP Pulse Ox O2 Del Method O2 Flow Rate 97.6 F 62 18 106/48 L 99 Nasal Cannula 2 10/23/23 12:00 10/23/23 12:00 10/23/23 12:00 10/23/23 12:00 10/23/23 12:00 10/23/23 14:55 10/23/23 14:55 I & O for Last 24 hours: Intake & Output 10/20/23 10/21/23 10/22/23 10/23/23 23:59 23:59 23:59 23:59 Intake Total 820 / 820 695 / 695 60 / 60 Output Total 0 / 0 0 / 0 0 / 0 Balance 820 / 820 695 / 695 60 / 60 Weight 52.163 kg 53.342 kg 51.755 kg Microbiology Reports for the Last 24 Hours: Microbiology 10/21/23 05:05 Blood Blood Culture - Preliminary Gram Positive Cocci Constitutional Constitutional: no acute distress *Routine HEENT Exam Head: Present normocephalic Eye: Present EOMI and PERRL ENT: Present mucous membranes moist *Routine Neck Exam Neck: Present supple; Absent lymphadenopathy *Routine Respiratory Exam Respiratory: Present distant breath sounds *Routine Cardiovascular Exam Cardiovascular: Present RRR *Routine Abdominal Exam Abdominal: Present soft and normoactive bowel sounds; Absent tenderness *Routine Extremities Exam Extremities: Absent cyanosis, clubbing or edema *Routine Skin Exam Skin: Present warm; Absent rash *Routine Neurological Exam Neurological: Present alert and oriented X3 Results Data Completed and Pending Labs on day of discharge: Preliminary micro results at discharge 10/21/23 05:05 Blood Culture - Preliminary Blood Gram Positive Cocci DS: Diagnosis Discharge Diagnosis (1) Sepsis: Status: Resolved Code(s): A41.9 - Sepsis, unspecified organism Qualifiers: Sepsis acute organ dysfunction status: without acute organ dysfunction Sepsis type: sepsis due to unspecified organism Qualified Code(s): A41.9 - Sepsis, unspecified organism (2) Fever: Status: Acute Code(s): R50.9 - Fever, unspecified Qualifiers: Fever type: unspecified Qualified Code(s): R50.9 - Fever, unspecified (3) Pneumonia: Status: Acute Code(s): J18.9 - Pneumonia, unspecified organism Qualifiers: Laterality: left Lung location: lower lobe of lung Pneumonia type: due to unspecified organism Qualified Code(s): J18.9 - Pneumonia, unspecified organism (4) Acute UTI: Status: Resolved Code(s): N39.0 - Urinary tract infection, site not specified (5) CAD (coronary artery disease): Status: Chronic Code(s): I25.10 - Atherosclerotic heart disease of [place] coronary artery without angina pectoris Qualifiers: Coronary Disease-Associated Artery/Lesion type: [place] artery [place] vs. transplanted heart: [place] heart Associated angina: without angina Qualified Code(s): I25.10 - Atherosclerotic heart disease of [place] coronary artery without angina pectoris (6) Tobacco use disorder: Status: Chronic Code(s): F17.200 - Nicotine dependence, unspecified, uncomplicated (7) COPD mixed type: Status: Chronic Code(s): J44.9 - Chronic obstructive pulmonary disease, unspecified Meds Home Medications and Allergies Home Medications Medication Instructions Recorded Confirmed Type citalopram 10 mg tablet 10 mg PO DAILY #90 tabs 08/04/23 10/21/23 Rx fluticasone fur. 100 mcg-umeclid 1 ea inhalation DAILY #60 ea 08/04/23 10/21/23 Rx 62.5 mcg-vilant 25 mcg inhalat.powder (Trelegy Ellipta) melatonin 5 mg tablet 5 mg PO HS #90 tabs 08/04/23 10/21/23 Rx apixaban 5 mg tablet (Eliquis) 2.5 mg (1/2 x 5 mg) PO BID Blood 08/18/23 10/21/23 Rx Thinner/AFIB 30 days #30 tabs albuterol sulfate 90 mcg/actuation 2 puff inhalation Q4HP PRN 10/05/23 10/21/23 Rx aerosol inhaler Shortness Of Breath #8.5 grams clonazepam 1 mg tablet (Klonopin) 1 mg PO BID Anxiety 30 days #60 10/05/23 10/21/23 Rx tabs gabapentin 600 mg tablet 600 mg PO BID NEUROPATHY 30 days 10/05/23 10/21/23 Rx #60 tabs ondansetron 4 mg disintegrating 4 mg PO Q8H PRN nausea and 10/05/23 10/21/23 Rx tablet vomiting #30 tabs pantoprazole 40 mg tablet,delayed 40 mg PO DAILY GERD #90 tabs 10/05/23 10/21/23 Rx release atorvastatin 10 mg tablet 10 mg PO HS Cholesterol #100 tabs 10/18/23 10/21/23 Rx metoprolol succinate 25 mg 25 mg PO DAILY High Blood Pressure 10/20/23 10/21/23 Rx tablet,extended release 24 hr #90 tabs lisinopril 2.5 mg tablet 2.5 mg PO DAILY 10/21/23 10/21/23 History ciprofloxacin HCl 500 mg tablet 500 mg PO Q12H 7 days #14 tabs 10/23/23 Rx doxycycline hyclate 100 mg capsule 100 mg PO BID 7 days #14 caps 10/23/23 Rx New Prescriptions to Start Prescriptions: ciprofloxacin HCl Vinayak,Irfan doxycycline hyclate Vinayak,Irfan Allergies Allergy/AdvReac Type Severity Reaction Status Date / Time levofloxacin Allergy Intermediate blisters Verified 10/21/23 05:00 in mouth, diarrhea Discharge Plan Disposition Patient Disposition: Home, Self-Care Condition: Good Discharge Order Discharge Orders: Discharge Order (Routine); Ordered 10/23/23 Ordered By: Kerrie Licea Follow up Plan Follow up with: Stephy Morin PA [Primary Care Provider] - 11/01/23 3:15 pm Prescriptions/Medication Reconciliation: New ciprofloxacin HCl 500 mg tablet 500 mg PO Q12H 7 Days Qty: 14 0RF doxycycline hyclate 100 mg capsule 100 mg PO BID 7 Days Qty: 14 0RF Continued pantoprazole 40 mg tablet,delayed release (DR/EC) 40 mg PO DAILY Qty: 90 0RF ondansetron 4 mg tablet,disintegrating 4 mg PO Q8H PRN (Reason: nausea and vomiting) Qty: 30 0RF albuterol sulfate 90 mcg/actuation HFA aerosol inhaler 2 puff INHALATION Q4HP PRN (Reason: Shortness Of Breath) Qty: 8.5 2RF clonazepam [Klonopin] 1 mg tablet 1 mg PO BID 30 Days Qty: 60 0RF gabapentin 600 mg tablet 600 mg PO BID 30 Days Qty: 60 2RF citalopram 10 mg tablet 10 mg PO DAILY Qty: 90 0RF Trelegy Ellipta 100-62.5-25 mcg blister with device 1 ea inhalation DAILY Qty: 60 2RF melatonin 5 mg tablet 5 mg PO HS Qty: 90 0RF Eliquis 5 mg tablet 2.5 mg PO BID 30 Days Qty: 30 2RF atorvastatin 10 mg tablet 10 mg PO HS Qty: 100 0RF metoprolol succinate 25 mg tablet extended release 24 hr 25 mg PO DAILY Qty: 90 0RF lisinopril 2.5 mg tablet 2.5 mg PO DAILY Rx Instructions: TAKE 1 TABLET BY MOUTH DAILY Problem Reconciliation Problems Reviewed?: Yes Patient Discharge Instructions ACTIVITY: Ambulate as tolerated DIET: continue same diet Patient Instructions: DI for Pneumonia -- Adult, DI for Urinary Tract Infection (UTI), DI for Sepsis -- Adult Providers Primary Care Provider: Stephy Morin Admit Provider: Kerrie Licea Attending Provider: Kerrie Licea
--- NOTE | 2023-10-24 15:04 | CARE MANAGER ---
Contacted patient's daughter related to hospital discharge. Deny any questions or concerns at this time.
== END 2023-10-23 17:10 | disposition home or self-care (01) | DRG 871 ==
LOC: ER 05:04 → 2ND 05:43
PROVIDERS: Nurse Practitioner Family; Admitting Provider Internal Medicine; Emergency Provider Emergency Medicine; PCP Physician Assistant; Visit Provider Internal Medicine
DX: A41.9 Sepsis, unspecified organism (principal); J18.9 Pneumonia, unspecified organism; J44.0 Chronic obstructive pulmonary disease with (acute) lower respiratory infection; I42.1 Obstructive hypertrophic cardiomyopathy; N30.00 Acute cystitis without hematuria; I25.10 Atherosclerotic heart disease of native coronary artery without angina pectoris; F17.200 Nicotine dependence, unspecified, uncomplicated; I48.0 Paroxysmal atrial fibrillation; I73.9 Peripheral vascular disease, unspecified; Z95.820 Peripheral vascular angioplasty status with implants and grafts; G89.29 Other chronic pain; I10 Essential (primary) hypertension; F17.210 Nicotine dependence, cigarettes, uncomplicated; E78.5 Hyperlipidemia, unspecified; F41.9 Anxiety disorder, unspecified; D64.9 Anemia, unspecified
CPT/HCPCS: 36415; 71045; 80048; 80053; 81001; 82803; 83605; 83735; 84484; 85025; 87040; 87077; 87636; 93005; 94640; 97163; 97165; 99285; G0378; J2405; J2543; J3370

== ENCOUNTER 2023-10-28 01:06 | Emergency (ER) | payer MEDICARE, SELFPAY ==
[2023-10-28 01:08] VITALS: BP 149/74; PULSE 79; RESP 20; TEMP 36.8; O2SAT 98; BMI 20.8
[2023-10-28 01:19] VITALS: BP 149/74; O2SAT 98
--- NOTE | 2023-10-28 01:22 | CT_ITS ---
PROCEDURE INFORMATION: Exam: CTA Abdomen and Pelvis With Contrast Exam date and time: 10/28/2023 1:59 AM Age: 68 years old Clinical indication: Injury or trauma; Fall; Blunt trauma; Upper leg; Right; Additional info: Trauma fell on R side anticoagulated TECHNIQUE: Imaging protocol: Computed tomographic angiography of the abdomen and pelvis with contrast. Exam focused on the arteries. 3D rendering (Not supervised by radiologist): MIP and/or 3D reconstructed images were created by the technologist. Radiation optimization: All CT scans at this facility use at least one of these dose optimization techniques: automated exposure control; mA and/or kV adjustment per patient size (includes targeted exams where dose is matched to clinical indication); or iterative reconstruction. Contrast material: ISOVUE; Contrast volume: 100 ml; Contrast route: INTRAVENOUS (IV); COMPARISON: CT ABDOMEN PELVIS W CON 05/12/2023 3:31 PM FINDINGS: Aorta: Mild aortoiliac calcific atherosclerosis without aneurysm. Celiac trunk and mesenteric arteries: No occlusion or significant stenosis. Renal arteries: Duplicated right renal artery. Right iliac arteries: No occlusion or significant stenosis. Left iliac arteries: No occlusion or significant stenosis. Liver: No mass. Gallbladder and bile ducts: Postprandial gallbladder is contracted. No biliary tree dilation. Pancreas: Moderate fatty atrophy of the pancreas. Spleen: Unremarkable. No splenomegaly. Adrenal glands: Unremarkable. No mass. Kidneys and ureters: Kidneys enhance symmetrically and demonstrate no evidence of mass, calculus, obstruction, or inflammation. Stomach and bowel: Postprandial stomach. Normal caliber small bowel. Distal colonic diverticulosis without evidence of acute diverticulitis. Appendix: No evidence of appendicitis. Intraperitoneal space: Unremarkable. No free air. No significant fluid collection. Lymph nodes: Unremarkable. No enlarged lymph nodes. Urinary bladder: Unremarkable. No mass. Reproductive: Bilateral common iliac artery stents are noted. Atrophic uterus as expected. No adnexal masses. Bones/joints: Subjective bony demineralization. No evidence of acute fracture of the spine, pelvis, or proximal femora. Soft tissues: Unremarkable. IMPRESSION: No acute traumatic change in the abdomen or pelvis. No evidence of acute arterial injury.
--- NOTE | 2023-10-28 01:22 | CT_ITS ---
PROCEDURE INFORMATION: Exam: CTA Chest With Contrast Exam date and time: 10/28/2023 1:59 AM Age: 68 years old Clinical indication: Injury or trauma; Fall; Blunt trauma (contusions or hematomas); Additional info: Trauma fell on R side anticoagulated TECHNIQUE: Imaging protocol: Computed tomographic angiography of the chest with contrast. Exam focused on the arteries. 3D rendering (Not supervised by radiologist): MIP and/or 3D reconstructed images were created by the technologist. Radiation optimization: All CT scans at this facility use at least one of these dose optimization techniques: automated exposure control; mA and/or kV adjustment per patient size (includes targeted exams where dose is matched to clinical indication); or iterative reconstruction. Contrast material: ISOVUE; Contrast volume: 100 ml; Contrast route: INTRAVENOUS (IV); COMPARISON: CT ANGIO CHEST PE PROTOCOL 11/09/2022 3:20 AM FINDINGS: Pulmonary arteries: Normal. No pulmonary emboli. Aorta: Mild calcific plaque in the normal caliber thoracic aorta. Lungs: Advanced centrilobular emphysema. Diffuse bronchial wall thickening. Retained secretions noted throughout the tracheobronchial tree with bronchial luminal narrowing. Pleural spaces: Unremarkable. No pneumothorax. No pleural effusion. Heart: Unremarkable. No cardiomegaly. No pericardial effusion. Lymph nodes: Unremarkable. No enlarged lymph nodes. Bones/joints: No evidence of acute fracture involving the spine, ribs, shoulder girdles, or sternum. Soft tissues: Unremarkable. IMPRESSION: 1. No acute traumatic change in the chest. 2. Advanced centrilobular emphysema with features of acute on chronic bronchitis. No airspace disease.. COMMENTS: The presence of pulmonary emphysema on CT is an independent risk factor for lung cancer. In the absence of a history or active diagnosis of lung cancer, it is recommended that this patient with emphysema be evaluated for enrollment in a low dose CT lung cancer screening program.
--- NOTE | 2023-10-28 01:22 | CT_ITS ---
PROCEDURE INFORMATION: Exam: CT Head Without Contrast Exam date and time: 10/28/2023 1:54 AM Age: 68 years old Clinical indication: Injury or trauma; Fall; Blunt trauma (contusions or hematomas); Additional info: Trauma, critical injury suspected TECHNIQUE: Imaging protocol: Computed tomography of the head without contrast. Radiation optimization: All CT scans at this facility use at least one of these dose optimization techniques: automated exposure control; mA and/or kV adjustment per patient size (includes targeted exams where dose is matched to clinical indication); or iterative reconstruction. COMPARISON: CT HEAD/BRAIN WO CON 05/13/2023 6:36 PM FINDINGS: Brain: There is age related atrophy. No hemorrhage. There is mild periventricular white matter hypodensity consistent with chronic small vessel disease. No mass effect. Cerebral ventricles: No ventriculomegaly. Paranasal sinuses: Visualized sinuses are unremarkable. No fluid levels. Mastoid air cells: Visualized mastoid air cells are well aerated. Orbital cavities: The orbital contents are symmetric and normal. Bones: Unremarkable. No acute fracture. Soft tissues: Unremarkable. IMPRESSION: No acute intracranial abnormality.
--- NOTE | 2023-10-28 01:22 | CT_ITS ---
PROCEDURE INFORMATION: Exam: CT Cervical Spine Without Contrast Exam date and time: 10/28/2023 1:56 AM Age: 68 years old Clinical indication: Injury or trauma; Fall; Blunt trauma; Additional info: Trauma, critical injury suspected TECHNIQUE: Imaging protocol: Computed tomography of the cervical spine without contrast. Radiation optimization: All CT scans at this facility use at least one of these dose optimization techniques: automated exposure control; mA and/or kV adjustment per patient size (includes targeted exams where dose is matched to clinical indication); or iterative reconstruction. COMPARISON: CT CERVICAL SPINE WO CON 05/13/2023 6:38 PM FINDINGS: Bones: No acute fracture. There is straightening of the spine. [id number] degenerative disc disease from C4-C5 through C6-C7. Significant left-sided facet arthropathy at the C2-C3 through C4-C5 levels. Significant left bony foramen stenosis at C2-C3 and C3-C4. No significant disc bulge or herniation. No severe spinal canal stenosis. Lungs: There are emphysematous changes at the lung apices. Esophagus: Mildly dilated debris-filled upper thoracic esophagus. Soft tissues: Unremarkable. IMPRESSION: No acute cervical spine fracture.
--- NOTE | 2023-10-28 01:25 | XR_ITS ---
PROCEDURE INFORMATION: Exam: XR Right Wrist Exam date and time: 10/28/2023 2:01 AM Age: 68 years old Clinical indication: Injury or trauma; Fall; Swelling (edema); Wrist; Right TECHNIQUE: Imaging protocol: Radiologic exam of the right wrist. Views: 3 or more views. COMPARISON: CR XR FOREARM RT 2V 10/28/2023 2:01 AM FINDINGS: Bones/joints: Subjective bony demineralization. No evidence of acute fracture or dislocation. No erosive disease. Mild triscaphe degenerative change. Soft tissues: Normal. IMPRESSION: 1. No acute bony injury. Mild triscaphe degenerative change. 2. Subjective bony demineralization could be quantified with DEXA.
--- NOTE | 2023-10-28 01:25 | XR_ITS ---
PROCEDURE INFORMATION: Exam: XR Right Forearm Exam date and time: 10/28/2023 2:01 AM Age: 68 years old Clinical indication: Injury or trauma; Fall; Swelling (edema); Wrist; Right TECHNIQUE: Imaging protocol: Radiologic exam of the right forearm. Views: 2 views. COMPARISON: CR XR WRIST RT MIN 3V 10/28/2023 2:01 AM FINDINGS: Bones/joints: Subjective bony demineralization. No evidence of acute fracture or dislocation. No erosive disease. No significant degenerative change. Soft tissues: Normal. IMPRESSION: No acute bony injury.
--- NOTE | 2023-10-28 01:25 | XR_ITS ---
PROCEDURE INFORMATION: Exam: XR Right Femur Exam date and time: 10/28/2023 2:01 AM Age: 68 years old Clinical indication: Injury or trauma; Fall; Swelling (edema); Knee; Right TECHNIQUE: Imaging protocol: Radiologic exam of the right femur. Views: 2 views. COMPARISON: CR XR HIP RT 2-3V W/PELVIS 10/28/2023 2:01 AM FINDINGS: Bones/joints: No evidence of acute fracture or dislocation. No erosive disease. No significant degenerative change. Soft tissues: Unremarkable. Organs: Contrast noted in the bladder and distal right ureter. IMPRESSION: No acute bony injury.
--- NOTE | 2023-10-28 01:25 | XR_ITS ---
PROCEDURE INFORMATION: Exam: XR Right Hip Exam date and time: 10/28/2023 2:01 AM Age: 68 years old Clinical indication: Injury or trauma; Fall; Blunt trauma (contusions or hematomas); Right; Hip TECHNIQUE: Imaging protocol: Radiologic exam of the right hip. Views: 2 or 3 views hip with pelvis when performed. COMPARISON: CT ANGIO ABDOMEN PELVIS 10/28/2023 1:59 AM FINDINGS: Bones/joints: Subjective bony demineralization. No evidence of acute fracture or dislocation. No erosive disease. No significant degenerative change. Soft tissues: Unremarkable. Organs: Arterial stents are noted in the pelvis. There is contrast in the urinary bladder and bilateral nondilated ureters. IMPRESSION: No acute bony injury.
--- NOTE | 2023-10-28 01:27 | ED_ITS ---
Discharge Plan Disposition Patient Disposition: Home, Self-Care Chief Complaint: Fall Prescriptions Prescriptions: No Action pantoprazole 40 mg tablet,delayed release (DR/EC) 40 mg PO DAILY Qty: 90 0RF ondansetron 4 mg tablet,disintegrating 4 mg PO Q8H PRN (Reason: nausea and vomiting) Qty: 30 0RF albuterol sulfate 90 mcg/actuation HFA aerosol inhaler 2 puff INHALATION Q4HP PRN (Reason: Shortness Of Breath) Qty: 8.5 2RF clonazepam [Klonopin] 1 mg tablet 1 mg PO BID 30 Days Qty: 60 0RF gabapentin 600 mg tablet 600 mg PO BID 30 Days Qty: 60 2RF citalopram 10 mg tablet 10 mg PO DAILY Qty: 90 0RF Trelegy Ellipta 100-62.5-25 mcg blister with device 1 ea inhalation DAILY Qty: 60 2RF melatonin 5 mg tablet 5 mg PO HS Qty: 90 0RF Eliquis 5 mg tablet 2.5 mg PO BID 30 Days Qty: 30 2RF atorvastatin 10 mg tablet 10 mg PO HS Qty: 100 0RF metoprolol succinate 25 mg tablet extended release 24 hr 25 mg PO DAILY Qty: 90 0RF lisinopril 2.5 mg tablet 2.5 mg PO DAILY Rx Instructions: TAKE 1 TABLET BY MOUTH DAILY ciprofloxacin HCl 500 mg tablet 500 mg PO Q12H 7 Days Qty: 14 0RF doxycycline hyclate 100 mg capsule 100 mg PO BID 7 Days Qty: 14 0RF Referrals Follow up/Referrals: Stephy Morin PA [Primary Care Provider] - See instructions Activity Restrictions/Add. Instructions Additional Instructions/Restrictions: At this time it was felt you are safe to be discharged home. If new or worsening symptoms please do not hesitate to return the emergency department. If symptoms persist please follow-up with your family doctor as you are able. Please wear your wrist splint for comfort as needed. Clinical Impressions Clinical Impression: Fall, Pain, wrist, Hip pain Discharge ED Provider: Abelardo Lorenzo General Adult HPI General Chief complaint: Fall Stated complaint: fall 20:00 10/26, pain r arm, wrist, leg Time Seen by Provider: 10/28/23 01:12 Mode of Arrival: Wheelchair Source of Information: Patient Limitations: No Limitations Description of Symptoms (Recalled from ER Triage Doc. by RN): 68 F presents from home with daughter with c/o right wrist and right thigh pain. Patient reports she was tripped by the dogs and she landed onto her right side. Patient denies hitting her head. She reports she does take blood thinners daily. CMS intact, but limited ROM to right wrist. NAD otherwise. History of Present Illness HPI narrative: Patient is a 68-year-old female with past medical history of atrial fibrillation on Eliquis who presents emergency department for evaluation of traumatic injury sustained in a fall. Patient was pulled down to the ground by her dogs and fell on her right side. She is complaining of right wrist pain, right forearm pain, right hip pain. Denies loss of consciousness or midline back pain. No other acute complaints at this time. Related Data Home Medications Medication Instructions Recorded Confirmed lisinopril 2.5 mg tablet 2.5 mg PO DAILY 10/21/23 10/21/23 Previous Rx's Medication Instructions Recorded citalopram 10 mg tablet 10 mg PO DAILY #90 tabs 08/04/23 fluticasone fur. 100 mcg-umeclid 1 ea inhalation DAILY #60 ea 08/04/23 62.5 mcg-vilant 25 mcg inhalat.powder (Trelegy Ellipta) melatonin 5 mg tablet 5 mg PO HS #90 tabs 08/04/23 apixaban 5 mg tablet (Eliquis) 2.5 mg (1/2 x 5 mg) PO BID Blood 08/18/23 Thinner/AFIB 30 days #30 tabs albuterol sulfate 90 mcg/actuation 2 puff inhalation Q4HP PRN 10/05/23 aerosol inhaler Shortness Of Breath #8.5 grams clonazepam 1 mg tablet (Klonopin) 1 mg PO BID Anxiety 30 days #60 10/05/23 tabs gabapentin 600 mg tablet 600 mg PO BID NEUROPATHY 30 days 10/05/23 #60 tabs ondansetron 4 mg disintegrating 4 mg PO Q8H PRN nausea and 10/05/23 tablet vomiting #30 tabs pantoprazole 40 mg tablet,delayed 40 mg PO DAILY GERD #90 tabs 10/05/23 release atorvastatin 10 mg tablet 10 mg PO HS Cholesterol #100 tabs 10/18/23 metoprolol succinate 25 mg 25 mg PO DAILY High Blood Pressure 05/17/24 tablet,extended release 24 hr #90 tabs ciprofloxacin HCl 500 mg tablet 500 mg PO Q12H 7 days #14 tabs 10/23/23 doxycycline hyclate 100 mg capsule 100 mg PO BID 7 days #14 caps 10/23/23 Allergies Allergy/AdvReac Type Severity Reaction Status Date / Time levofloxacin Allergy Intermediate blisters Verified 10/21/23 05:00 in mouth, diarrhea PFSH PFSH Disclaimer: The information contained in this section may have been updated after the patient was seen, as this information can be updated by other users. Medical History Decreased muscle strength Unsteady gait Respiratory failure with hypoxia and hypercapnia COPD exacerbation Encounter for screening for malignant neoplasm of lung Family history of asthma COPD mixed type Smoking greater than 30 pack years SOB (shortness of breath) on exertion Chronic respiratory failure with hypoxia O2 dependent Presence of arterial stent H/O Hampton's palsy Sinus tachycardia Hypertrophic obstructive cardiomyopathy (2019) Cardiac cath Vitamin D deficiency Hampton's palsy Depression PTSD (post-traumatic stress disorder) Insomnia Chronic pain COPD exacerbation Pulmonary nodule CAD (coronary artery disease) HLD (hyperlipidemia) PAD (peripheral artery disease) HTN (hypertension) Anxiety Lung nodule seen on imaging study Surgical History Appendicolith S/P peripheral artery angioplasty with stent placement Family History Other Family history of hypertension Social History Smoking Status: Current every day smoker tobacco type: cigarettes packs per day: 1 second hand exposure: No alcohol intake: never substance use type: denies use current occupational status: retired Travel in the last 8 weeks: None household members: children and none housing: house lives independently: No ROS Obtained: Yes Systems reviewed as appropriate & no additional complaints except as documented Physical Exam General General appearance: alert and in no apparent distress Head Head exam: atraumatic and normocephalic Eye Eye exam: Present PERRL and EOMI ENT ENT exam: Present mucous membranes moist Neck Neck exam: Present normal inspection and full ROM; Absent tenderness Chest Chest inspection: Present normal inspection and symmetric chest wall rise Respiratory Respiratory exam: Absent respiratory distress Cardiovascular Cardiovascular exam: Present regular rate and normal rhythm Abdominal Exam Abdominal exam: Present soft; Absent tenderness Extremities Exam Extremities exam: Present tenderness (Right wrist, right hip) Neurological Exam Neurological exam: Present alert Psychiatric Psychiatric exam: Present normal affect Skin Skin exam: Present warm and dry Medical Decision Making [place] Inquiry Pt receiving controlled substance: No Vital Signs: 10/28/23 01:08 10/28/23 01:19 10/28/23 01:30 Temperature 98.3 F Temperature Source Oral Pulse Rate Pulse Rate [Left] 79 Respiratory Rate 20 Blood Pressure 149/74 H 148/75 H Blood Pressure [Right Arm] 149/74 H Blood Pressure Mean 83 99 Blood Pressure Mean [Right Arm] 99 Blood Pressure Source [Right Arm] Automatic Cuff Blood Pressure Position [Right Arm] Supine 02 Sat by Pulse Oximetry 98 98 98 Oxygen Delivery Method Nasal Cannula Room Air Room Air Oxygen Flow Rate (LPM) 3 10/28/23 02:30 10/28/23 03:00 Temperature Temperature Source Pulse Rate 80 Pulse Rate [Left] Respiratory Rate Blood Pressure 113/61 116/56 L Blood Pressure [Right Arm] Blood Pressure Mean 78 76 Blood Pressure Mean [Right Arm] Blood Pressure Source [Right Arm] Blood Pressure Position [Right Arm] 02 Sat by Pulse Oximetry 98 100 Oxygen Delivery Method Room Air Room Air Oxygen Flow Rate (LPM) Lab Data Lab Results 10/28/23 01:25: WBC 6.5, RBC 4.16 L, Hgb 12.6, Hct 38.7, MCV 93.2, MCH 30.4, MCHC 32.6, RDW 13.9, Plt Count 183, MPV 9.8, Neut % (Auto) 67.2, Lymph % (Auto) 21.4, [place] % (Auto) 6.5, Eos % (Auto) 3.9, Baso % (Auto) 0.9, Neut # (Auto) 4.4, Lymph # (Auto) 1.4, [place] # (Auto) 0.4, Eos # (Auto) 0.3, Baso # (Auto) 0.1, Sodium 140, Potassium 3.7, Chloride 105, Carbon Dioxide 30, Anion Gap 8.7, BUN 11, Creatinine 0.70, Estimated Creat Clear 43, Estimated GFR 83, Est GFR ( Amer) 100, Glucose 121 H, Calcium 9.1, Total Bilirubin 0.2, AST 25, ALT 25, Alkaline Phosphatase 106, Total Protein 6.7, Albumin 3.6, Globulin 3.1, Albumin/Globulin Ratio 1.2 10/28/23 01:25 10/28/23 01:25 Orders (Tests/Meds): ED MEDICATIONS Generic Name Dose Route Start Last Admin Trade Name Patel PRN Reason Stop Dose Admin Sodium Chloride 10 ml 10/28/23 02:24 10/28/23 02:25 Sodium Chloride 0.9% 10ml Syr (Rad Only) IV 11/27/23 02:23 10 ml NEEDED PRN Administration Maintain IV Site Discontinued Medications Generic Name Dose Route Start Last Admin Trade Name Freq PRN Reason Stop Dose Admin Acetaminophen 1,000 mg 10/28/23 01:25 10/28/23 01:30 Acetaminophen 500mg Tab PO 10/28/23 01:26 1,000 mg ONCE ONE Administration Iopamidol 100 ml 10/28/23 02:24 10/28/23 02:25 Iopamidol-370 (76%);100ml Bottle IV 10/28/23 02:25 100 ml ONCE ONE Administration Morphine Sulfate 4 mg 10/28/23 01:25 10/28/23 01:30 Morphine 4mg/Ml Syringe IV 10/28/23 01:26 4 mg ONCE ONE Administration Ondansetron HCl 4 mg 10/28/23 01:35 10/28/23 01:38 Ondansetron 4mg/2ml Vial IV 10/28/23 01:36 4 mg ONCE ONE Administration Sodium Chloride 50 ml 10/28/23 02:24 10/28/23 02:25 0.9 % Sodium Chloride 50 Ml Vial IV 10/28/23 02:25 50 ml ONCE ONE Administration ORDERS Category Date Time Status CT angio abdomen pelvis Stat Cat Scan 10/28/23 01:[address] angio chest - dissection Stat Cat Scan 10/28/23 01:[address] cervical spine wo con Stat Cat Scan 10/28/23 01:[address] head/brain wo con Stat Cat Scan 10/28/23 01:22 Completed Femur XR right 2 views [XR femur RT 2V] Stat Exams 10/28/23 01:25 Completed Forearm XR right 2 views [XR forearm RT 2V] Stat Exams 10/28/23 01:25 Completed Hip XR right minimum 2 views [XR hip RT 2-3V w/pelvis] Exams 10/28/23 01:25 Completed Stat Wrist XR right minimum 3 views [XR wrist RT min 3V] Exams 10/28/23 01:25 Completed Stat CBC w/Auto Diff [Complete Blood Count Auto Diff] Stat Lab 10/28/23 01:25 Completed CMP [Comprehensive Metabolic Panel] Stat Lab 10/28/23 01:25 Completed Medical Decision Narrative: In summary patient is 68-year-old female past medical history described above who presents emergency department for evaluation traumatic injury sustained in a fall on anticoagulation. Patient is hemodynamically stable nontoxic-appearing upon arrival, afebrile. Differential diagnosis includes fracture, musculoskeletal strain, internal bleeding, among others. Workup be conducted with hematologic labs, noncontrasted CT scan of the head and cervical spine, CTA chest, abdomen, pelvis. Plain films of the right wrist, forearm, right hip, right femur. Initial interventions include Tylenol, morphine. Initial workup reviewed by me, hematologic labs are nonactionable, no RONI or critical electrolyte abnormality. Plain film of the right wrist, forearm, right hip, right femur no acute bony injury. Trauma CT imaging shows no acute pathology, advanced centrilobular emphysema with features of acute on chronic bronchitis which is consistent with patient's recent diagnosis of pneumonia. Given this patient will be placed in wrist splint for comfort and is appropriate for outpatient management at this time. Patient was given return precautions. Critical Care Critical Care Time Critical Care Time: No
[2023-10-28 01:30] VITALS: BP 148/75; O2SAT 98
[2023-10-28] MEDS: MORPHINE 4MG/ML SYRINGE 4 MG IV (01:30)
[2023-10-28] MEDS: ACETAMINOPHEN 500MG TAB 1000 MG PO (01:30)
[2023-10-28 01:36] LABS: Basophils # 0.1 K/mm3 (0-0.2); Basophils % 0.9 % (0.1-2.0); Eosinophils # 0.3 K/mm3 (0.0-0.4); Eosinophils % 3.9 % (0.1-12.0); Hematocrit 38.7 % (37.0-47.0); Hemoglobin 12.6 g/dL (12.2-16.2); Lymphocytes # 1.4 K/mm3 (0.7-4.5); Lymphocytes % 21.4 % (10-50); Mean Corpuscular HGB Conc 32.6 g/dL (31.8-35.4); Mean Corpuscular Hemoglobin 30.4 pg (27.0-31.2); Mean Corpuscular Volume 93.2 fl (81-99); Mean Platelet Volume 9.8 fl (7.4-10.4); Monocytes # 0.4 K/mm3 (0.1-1.0); Monocytes % 6.5 % (1.7-9.3); Neutrophils # 4.4 K/mm3 (1.8-7.8); Neutrophils % 67.2 % (37.0-80.0); Platelet Count 183 K/mm3 (142-424); Red Blood Count 4.16 M/mm3 (4.20-5.40); Red Cell Distribution Width 13.9 % (11.5-17.5); White Blood Count 6.5 K/mm3 (4.8-10.8)
[2023-10-28] MEDS: ONDANSETRON 4MG/2ML VIAL 4 MG IV (01:38)
[2023-10-28 01:47] LABS: Chloride 105 mmol/L (98-107)
[2023-10-28 01:48] LABS: Potassium 3.7 mmoL/L (3.5-5.1); Sodium 140 mmol/L (136-145)
[2023-10-28 01:50] LABS: Alanine Aminotransferase 25 U/L (12-78); Alkaline Phosphatase 106 U/L (38-126); Anion Gap 8.7 mEq/L (5-15); Aspartate Amino Transferase 25 U/L (14-36); Bilirubin,Total 0.2 mg/dl (0.2-1.3); Blood Urea Nitrogen 11 mg/dl (7-17); Carbon Dioxide 30 mmol/L (22.0-30.0); Creatinine Clearance Estimated 43 mL/min (50-200); Estimated Glomerular Filt Rate 83 ml/min (>60); GFR (African American) 100 ML/MIN (>60)
[2023-10-28 01:51] LABS: Albumin Level 3.6 g/dl (3.5-5.0); Albumin/Globulin Ratio 1.2 (1.1-1.8); Calcium 9.1 mg/dl (8.4-10.2); Globulin 3.1 g/dL (1.3-3.2); Glucose 121 mg/dl (74-100); Total Protein,Serum 6.7 g/dl (6.3-8.2)
[2023-10-28] MEDS: IOPAMIDOL-370 (76%);100ML BOTTLE 100 ML IV (02:25)
[2023-10-28] MEDS: SODIUM CHLORIDE 0.9% 10ML SYR (RAD ONLY) 10 ML IV (02:25)
[2023-10-28] MEDS: 0.9 % SODIUM CHLORIDE 50 ML VIAL IV (02:25)
[2023-10-28 02:30] VITALS: BP 113/61; O2SAT 98
[2023-10-28 03:00] VITALS: BP 116/56; PULSE 80; O2SAT 100
[2023-10-28 04:46] VITALS: BP 137/63; PULSE 80; RESP 16; TEMP 36.8; O2SAT 98
== END 2023-10-28 04:52 | disposition home or self-care (01) ==
PROVIDERS: Emergency Provider Emergency Medicine; PCP Physician Assistant
DX: M25.531 Pain in right wrist (principal); M25.551 Pain in right hip; F17.210 Nicotine dependence, cigarettes, uncomplicated; J44.9 Chronic obstructive pulmonary disease, unspecified; I73.9 Peripheral vascular disease, unspecified; I11.9 Hypertensive heart disease without heart failure; I25.10 Atherosclerotic heart disease of native coronary artery without angina pectoris; R78.5 Finding of other psychotropic drug in blood; Z95.5 Presence of coronary angioplasty implant and graft; Z79.01 Long term (current) use of anticoagulants; W18.39XA Other fall on same level, initial encounter
CPT/HCPCS: 70450; 71275; 72125; 73090; 73110; 73502; 73552; 74174; 80053; 85025; 96374; 96375; 99285; J2405; Q9967

== ENCOUNTER 2023-11-13 16:45 | Outpatient (CLI) | payer MEDICARE, SELFPAY ==
--- NOTE | 2023-11-13 17:09 | XR_ITS ---
PROCEDURE INFORMATION: Exam: XR Right Wrist Exam date and time: 11/13/2023 5:11 PM Age: 68 years old Clinical indication: Injury or trauma; Fall; Blunt trauma (contusions or hematomas); Wrist; Right; Additional info: Right wrist TECHNIQUE: Imaging protocol: Radiologic exam of the right wrist. Views: 3 or more views. COMPARISON: CR XR WRIST RT MIN 3V 10/28/2023 2:01 AM FINDINGS: Bones/joints: There is a subtle irregular transverse lucency involving the distal radial metaphysis suggestive of subtle nondisplaced acute fracture. Intra-articular extension is equivocal. No significant displacement. No additional acute fractures are seen. There is mild diffuse osteopenia. Soft tissues: There is associated perifractural edema. No subcutaneous emphysema or radiopaque foreign bodies. IMPRESSION: Subtle irregular transverse lucency involving the distal radial metaphysis suggestive of subtle nondisplaced acute fracture.
== END 2023-11-13 23:59 | disposition home or self-care (01) ==
LOC: RAD 16:46
PROVIDERS: PCP Physician Assistant; Visit Provider Physician Assistant
DX: M25.531 Pain in right wrist (principal)
CPT/HCPCS: 73110

== ENCOUNTER 2023-11-15 21:53 | Inpatient (IN) | payer MEDICARE, SELFPAY ==
[2023-11-15 21:55] VITALS: BP 169/105; PULSE 77; RESP 20; TEMP 36.4; O2SAT 98; BMI 19.7
--- NOTE | 2023-11-15 22:08 | HMH.EDGENADL ---
Discharge Plan Disposition Patient Disposition: Admitted Condition: Critical Clinical Impressions Clinical Impression: Acute hypoxic respiratory failure, Acute exacerbation of chronic obstructive pulmonary disease Discharge ED Provider: Luz Cain General Adult HPI <KALEN Rey - Last Filed: 11/15/23 22:48> General Chief complaint: Urogenital-Female Stated complaint: pos.UTI Time Seen by Provider: 11/15/23 22:08 History of Present Illness HPI narrative: Patient presents for evaluation of dysuria. Patient reports that she has had difficulty with urination and both starting to pee but also with burning and pain on urination. Patient also states that she recently had a urinary tract infection and was placed on antibiotics and since that time she has had loose stool. However I can find no urine culture that shows any findings except May of last year however she had a urinalysis done on 10/21/2023 that was negative for nitrites and leukocytes and microscopic exam showed trace leukocytes and 1+ bacteria. Currently she denies chest pain fever chills hemoptysis hematochezia melena nausea vomiting. Related Data Home Medications Medication Instructions Recorded Confirmed apixaban 5 mg tablet (Eliquis) 2.5 mg PO BID atrial fib 11/16/23 11/16/23 citalopram 10 mg tablet 10 mg PO DAILY 11/16/23 11/16/23 clonazepam 1 mg tablet (Klonopin) 1 mg PO BID 11/16/23 11/16/23 fluticasone fur. 100 mcg-umeclid 1 inh inhalation DAILY 11/16/23 11/16/23 62.5 mcg-vilant 25 mcg inhalat.powder (Trelegy Ellipta) gabapentin 600 mg tablet 600 mg PO BID 11/16/23 11/16/23 lisinopril 5 mg tablet 5 mg PO DAILY 11/16/23 11/16/23 metoprolol succinate 25 mg 25 mg PO DAILY 11/16/23 11/16/23 tablet,extended release 24 hr pantoprazole 40 mg tablet,delayed 40 mg PO DAILY 11/16/23 11/16/23 release Previous Rx's Medication Instructions Recorded albuterol sulfate 90 mcg/actuation 2 puff inhalation Q4HP PRN 10/05/23 aerosol inhaler Shortness Of Breath #8.5 grams atorvastatin 10 mg tablet 10 mg PO HS Cholesterol #100 tabs 10/18/23 melatonin 5 mg tablet 5 mg PO HS #90 tabs 11/06/23 ondansetron 8 mg disintegrating 8 mg PO Q8H PRN nausea and 11/08/23 tablet vomiting 5 days #30 tabs Allergies Allergy/AdvReac Type Severity Reaction Status Date / Time levofloxacin Allergy Intermediate blisters Verified 11/15/23 15:26 in mouth, diarrhea PFSH <KALEN Rey - Last Filed: 11/15/23 22:48> PFS Disclaimer: The information contained in this section may have been updated after the patient was seen, as this information can be updated by other users. Medical History Pneumonia Decreased muscle strength Unsteady gait Respiratory failure with hypoxia and hypercapnia COPD exacerbation Encounter for screening for malignant neoplasm of lung Family history of asthma COPD mixed type Smoking greater than 30 pack years SOB (shortness of breath) on exertion Chronic respiratory failure with hypoxia Presence of arterial stent H/O Hampton's palsy Sinus tachycardia Hypertrophic obstructive cardiomyopathy Vitamin D deficiency Hampton's palsy Depression PTSD (post-traumatic stress disorder) Insomnia Chronic pain COPD exacerbation Pulmonary nodule CAD (coronary artery disease) HLD (hyperlipidemia) PAD (peripheral artery disease) HTN (hypertension) Anxiety Lung nodule seen on imaging study Surgical History Appendicolith S/P peripheral artery angioplasty with stent placement Family History Other Family history of hypertension Social History Smoking Status: Current every day smoker tobacco type: cigarettes packs per day: 1 second hand exposure: No alcohol intake: never substance use type: denies use current occupational status: retired Travel in the last 8 weeks: None household members: children and none housing: house lives independently: No <KALEN Rey - Last Filed: 11/15/23 22:48> ROS Obtained: Yes Systems reviewed as appropriate & no additional complaints except as documented Physical Exam <KALEN Rey - Last Filed: 11/15/23 22:48> General General appearance: alert and in no apparent distress Respiratory Respiratory exam: Present normal lung sounds bilaterally Cardiovascular Cardiovascular exam: Present regular rate, normal rhythm and +S2 Abdominal Exam Abdominal exam: Present soft and normal bowel sounds; Absent tenderness, guarding, rebound or rigidity Neurological Exam Neurological exam: Present alert and oriented X3 Psychiatric Psychiatric exam: Present normal affect and normal mood Skin Skin exam: Present warm, dry and normal color Medical Decision Making <KALEN Rey - Last Filed: 11/15/23 22:48> Medical Records Medical records reviewed: Yes I reviewed the patient's medical records. [place] Inquiry Pt receiving controlled substance: No Vital Signs: 11/15/23 21:55 11/15/23 23:30 11/16/23 00:00 Temperature 97.6 F Temperature Source Oral Pulse Rate 71 118 H Pulse Rate [Right] 77 Respiratory Rate 20 Blood Pressure 166/68 H 202/104 H Blood Pressure [Left Arm] 169/105 H Blood Pressure Mean [Left Arm] 126 Blood Pressure Source Blood Pressure Source [Left Arm] Automatic Cuff 02 Sat by Pulse Oximetry 98 100 89 L Oxygen Delivery Method Nasal Cannula Nasal Cannula Nasal Cannula Oxygen Flow Rate (LPM) 3 3 4 11/16/23 00:15 11/16/23 00:30 11/16/23 00:35 Temperature Temperature Source Pulse Rate 120 H 122 H 127 H Pulse Rate [Right] Respiratory Rate Blood Pressure 200/101 H Blood Pressure [Left Arm] Blood Pressure Mean [Left Arm] Blood Pressure Source Blood Pressure Source [Left Arm] 02 Sat by Pulse Oximetry 89 L 89 L Oxygen Delivery Method Aerosol Mask Aerosol Mask Oxygen Flow Rate (LPM) 11/16/23 00:35 11/16/23 00:45 11/16/23 01:00 Temperature 97.8 F Temperature Source Axillary Pulse Rate 127 H 128 H 118 H Pulse Rate [Right] Respiratory Rate 25 H Blood Pressure 185/98 H 155/83 H Blood Pressure [Left Arm] Blood Pressure Mean [Left Arm] Blood Pressure Source Automatic Cuff Blood Pressure Source [Left Arm] 02 Sat by Pulse Oximetry 94 L Oxygen Delivery Method Aerosol Mask BiPAP Oxygen Flow Rate (LPM) 11/16/23 01:00 11/16/23 01:15 11/16/23 01:31 Temperature Temperature Source Pulse Rate 119 H 101 H 107 H Pulse Rate [Right] Respiratory Rate Blood Pressure 155/83 H 117/74 Blood Pressure [Left Arm] Blood Pressure Mean [Left Arm] Blood Pressure Source Blood Pressure Source [Left Arm] 02 Sat by Pulse Oximetry 93 L 96 90 L Oxygen Delivery Method BiPAP BiPAP BiPAP Oxygen Flow Rate (LPM) 11/16/23 01:45 Temperature Temperature Source Pulse Rate 102 H Pulse Rate [Right] Respiratory Rate Blood Pressure Blood Pressure [Left Arm] Blood Pressure Mean [Left Arm] Blood Pressure Source Blood Pressure Source [Left Arm] 02 Sat by Pulse Oximetry 100 Oxygen Delivery Method BiPAP Oxygen Flow Rate (LPM) Lab Data Lab results reviewed: Yes I reviewed the patient's lab results. Lab Results 11/15/23 00:06: Urine Color Yellow, Urine Appearance Cloudy, Urine pH 6.0, Ur Specific [place] >= 1.030, Urine Protein Trace, Urine Glucose (UA) Negative, Urine Ketones Negative, Urine Blood 1+, Urine Nitrate Positive, Urine Bilirubin Negative, Urine Urobilinogen 1.0, Ur Leukocyte Esterase Negative, Urine RBC 50-100, Urine WBC Occasional, Ur Squamous Epith Cells Occasional, Urine Bacteria Trace 11/15/23 22:30: WBC 6.0, RBC 4.17 L, Hgb 12.8, Hct 39.6, MCV 95.1, MCH 30.7, MCHC 32.3, RDW 14.0, Plt Count 177, MPV 9.7, Neut % (Auto) 60.3, Lymph % (Auto) 26.8, Sebastian % (Auto) 5.8, Eos % (Auto) 5.9, Baso % (Auto) 1.1, Neut # (Auto) 3.6, Lymph # (Auto) 1.6, Sebastian # (Auto) 0.4, Eos # (Auto) 0.4, Baso # (Auto) 0.1, Sodium 140, Potassium 4.1, Chloride 105, Carbon Dioxide 32 H, Anion Gap 7.1, BUN 13, Creatinine 0.70, Estimated Creat Clear 41, Estimated GFR 83, Est GFR ( Amer) 100, Glucose 110 H, Lactate 0.6 L, Calcium 9.5, Magnesium 2.0, Total Bilirubin 0.4, AST 28, ALT 18, Alkaline Phosphatase 146 H, Troponin I < 0.01, Total Protein 7.1, Albumin 3.8, Globulin 3.3 H, Albumin/Globulin Ratio 1.2, Procalcitonin 0.039 11/16/23 00:11: VBG pH 7.12 L, VBG pCO2 83.9 H, VBG pO2 92.6 H, VBG HCO3 26.5, VBG Total CO2 29.1 H, VBG O2 Saturation 95.1 H, VBG Base Excess -2.8 L, VBG Lactic Acid 3.9 H 11/16/23 03:50: Lactate 2.0, Troponin I 0.48 H 11/16/23 05:00: Specimen Source Left radial, O2 % 32% fio2, ABG pH 7.39, ABG pCO2 45.1 H, ABG pO2 87.6, ABG HCO3 26.6 H, ABG Total CO2 27.9 H, ABG O2 Saturation 97, ABG Base Excess 1.6, Herminio Test Acceptable, Vent Rate 20, PEEP Bipap 18/8 11/16/23 06:08: Sodium 140, Potassium 3.7, Chloride 104, Carbon Dioxide 29, Anion Gap 10.7, BUN 13, Creatinine 0.70, Estimated Creat Clear 40, Estimated GFR 83, Est GFR ( Amer) 100, Glucose 166 H D, Lactate 1.8, Calcium 9.6, Total Bilirubin 0.3, AST 100 H D, ALT 67 D, Alkaline Phosphatase 185 H, Troponin I 0.65 H, NT-Pro-B Natriuret Pep 516 H, Total Protein 7.0, Albumin 3.8, Globulin 3.2, Albumin/Globulin Ratio 1.2, Triglycerides 84, Cholesterol 155, LDL Cholesterol Direct 79.89 L, VLDL Cholesterol 17, HDL Cholesterol 53, Cholesterol/HDL Ratio 2.9 11/20/23 05:19 11/20/23 05:19 Orders (Tests/Meds): ED MEDICATIONS Generic Name Dose Route Start Last Admin Trade Name Freq PRN Reason Stop Dose Admin Acetaminophen 500 mg 11/17/23 13:41 Acetaminophen 500mg Tab PO 12/17/23 13:40 Q6HP PRN Mild to Moderate Pain (1-6) Hydrocodone Bitart/Acetaminophen 2 tab 11/17/23 13:41 11/20/23 15:44 Hydrocodone/Apap 5/325 Mg Tablet PO 12/17/23 13:40 2 tab Q4HP PRN Administration Severe Pain (7-10) Albuterol/Ipratropium 3 ml 11/16/23 09:34 Ipratropium/Albuterol 3 Ml Neb 12/16/23 09:33 Q4HP PRN Shortness Of Breath Apixaban 2.5 mg 11/16/23 09:00 11/20/23 08:19 Apixaban 5mg Tablet PO 12/16/23 08:59 2.5 mg BID LEONARD Administration Atorvastatin Calcium 10 mg 11/16/23 21:00 11/19/23 20:39 Atorvastatin 10mg Tablet PO 12/16/23 20:59 10 mg HS LEONARD Administration Azithromycin 500 mg 11/20/23 09:00 11/20/23 08:19 Azithromycin 250mg Tablet PO 11/30/23 08:59 500 mg DAILY LEONARD Administration Citalopram Hydrobromide 10 mg 11/17/23 09:00 11/20/23 08:20 Citalopram 10mg Tablet PO 12/17/23 08:59 10 mg DAILY LEONARD Administration Clonazepam 1 mg 11/16/23 10:15 11/20/23 08:26 Clonazepam 1mg Tablet PO 12/16/23 10:14 1 mg BID LEONARD Administration Clopidogrel Bisulfate 75 mg 11/19/23 09:00 11/20/23 08:20 Clopidogrel 75mg Tab PO 12/19/23 08:59 75 mg DAILY LEONARD Administration Empagliflozin 10 mg 11/17/23 09:00 11/20/23 08:20 Empagliflozin 10mg Tablet PO 12/17/23 08:59 10 mg DAILY LEONARD Administration Fluticasone/Umeclidinium/Vilanterol 1 puff 11/16/23 09:45 11/20/23 05:21 Fluticasone/Umeclidin/Vilanter 100/62.5/25mcg Inhaler 12/16/23 09:44 1 puff DAILY LEONARD Administration Gabapentin 600 mg 11/16/23 21:00 11/20/23 08:20 Gabapentin 600mg Tablet PO 12/16/23 20:59 600 mg BID LEONARD Administration Ceftriaxone Sodium 1 gm/ 50 mls @ 100 mls/hr 11/16/23 21:00 11/19/23 20:39 Sodium Chloride IV 11/26/23 20:59 100 mls/hr Q24H LEONARD Administration Melatonin 5 mg 11/16/23 21:00 11/19/23 20:39 Melatonin 5mg Tablet PO 12/16/23 20:59 5 mg HS LEONARD Administration Metoprolol Succinate 25 mg 11/16/23 09:15 11/20/23 08:21 Metoprolol Succinate Xl 25mg Tablet PO 12/16/23 09:14 25 mg DAILY LEONARD Administration Nicotine 21 mg 11/16/23 11:00 11/16/23 11:31 Nicotine 21mg/24hr Patch TD 12/16/23 10:59 21 mg DAILYP PRN Administration Nicotine Cravings Ondansetron HCl 8 mg 11/16/23 10:10 11/19/23 20:39 Ondansetron 4mg Odt SL 12/16/23 10:09 8 mg Q8HP PRN Administration nausea and vomiting Pantoprazole Sodium 40 mg 11/17/23 09:00 11/20/23 08:20 Pantoprazole 40mg Tablet PO 12/17/23 08:59 40 mg DAILY LEONARD Administration Polyethylene Glycol 17 gm 11/19/23 16:00 11/20/23 08:21 Polyethylene Glycol 3350 17 Gm Packet PO 12/19/23 15:59 Not Given DAILY LEONARD Prednisone 40 mg 11/17/23 09:00 11/20/23 08:19 Prednisone 20mg Tab PO 12/17/23 08:59 40 mg DAILY LEONARD Administration Sacubitril/Valsartan 1 each 11/18/23 09:00 11/20/23 08:20 Sacubitril/Valsartan 24-26mg Tablet PO 12/18/23 08:59 1 each BID LEONARD Administration Sodium Chloride 10 ml 11/16/23 07:20 Sodium Chloride 0.9% 10ml Flush Syringe IV 12/16/23 07:19 NEEDED PRN Maintain IV Site Sodium Chloride 3 ml 11/16/23 07:44 11/16/23 11:10 Sodium Chloride 3% 15ml Neb IH 12/16/23 07:43 3 ml ONCE PRN Administration [employer] Spironolactone 25 mg 11/17/23 09:00 11/20/23 08:19 Spironolactone 25mg Tablet PO 12/17/23 08:59 25 mg DAILY LEONARD Administration Discontinued Medications Generic Name Dose Route Start Last Admin Trade Name Freq PRN Reason Stop Dose Admin Acetaminophen 1,000 mg 11/15/23 22:20 11/15/23 22:42 Acetaminophen 1,000mg/100ml Vial IV 11/15/23 22:21 1,000 mg ONCE ONE Administration Albuterol Sulfate 2 puff 11/16/23 10:03 Albuterol-Hfa 90mcg/Puff Inhaler 8gm 12/16/23 10:02 Q4HP PRN Shortness Of Breath Albuterol/Ipratropium 3 ml 11/16/23 00:01 11/16/23 00:12 Ipratropium/Albuterol 3 Ml [facility] 11/16/23 00:02 3 ml ONCE ONE Administration Albuterol/Ipratropium 9 ml 11/16/23 00:23 11/16/23 00:35 Ipratropium/Albuterol 3 Ml [facility] 11/16/23 00:24 9 ml ONCE ONE Administration Albuterol/Ipratropium 3 ml 11/16/23 02:00 11/16/23 02:34 Ipratropium/Albuterol 3 Ml [facility] 12/16/23 01:59 Not Given Q4HP [facility] Albuterol/Ipratropium 3 ml 11/16/23 03:00 11/16/23 06:02 Ipratropium/Albuterol 3 Ml [facility] 12/16/23 02:59 3 ml Q4RT LEONARD Administration Apixaban 2.5 mg 11/16/23 21:00 Apixaban 5mg Tablet PO 12/16/23 20:59 BID LEONARD Aspirin 325 mg 11/16/23 04:39 11/16/23 04:49 Aspirin 325mg Tablet PO 11/16/23 04:40 325 mg ONCE ONE Administration Aspirin 81 mg 11/16/23 10:45 11/18/23 08:41 Aspirin Ec 81mg Tablet PO 12/16/23 10:44 81 mg DAILY LEONARD Administration Clopidogrel Bisulfate 300 mg 11/16/23 10:29 11/16/23 11:31 Clopidogrel 300mg Tablet PO 11/16/23 10:30 300 mg ONCE ONE Administration Diphenhydramine HCl 50 mg 11/17/23 07:37 11/17/23 12:17 Diphenhydramine 50mg/Ml Vial IV 11/17/23 07:38 50 mg ONCE ONE Administration Fentanyl Citrate 50 mcg 11/17/23 07:37 11/17/23 12:19 Fentanyl 100mcg/2ml Vial IV 11/17/23 19:38 100 mcg Q3MINP PRN Administration Moderate to Severe Pain (4-10) Fentanyl Citrate 25 mcg 11/17/23 07:37 Fentanyl 250mcg/5ml Vial IV 11/17/23 19:38 Q3MINP PRN Moderate to Severe Pain (4-10) Fentanyl Citrate 50 mcg 11/17/23 07:37 Fentanyl 250mcg/5ml Vial IV 11/17/23 19:38 Q3MINP PRN Moderate to Severe Pain (4-10) Fentanyl Citrate 25 mcg 11/17/23 07:37 Fentanyl 100mcg/2ml Vial IV 11/17/23 19:38 Q3MINP PRN Moderate to Severe Pain (4-10) Flumazenil 0.2 mg 11/17/23 07:37 Flumazenil 0.1mg/Ml 5ml Vial IV 11/17/23 19:38 NEEDED PRN Sedation Fluticasone/Umeclidinium/Vilanterol 1 puff 11/17/23 09:00 Fluticasone/Umeclidin/Vilanter 100/62.5/25mcg Inhaler IH 12/17/23 08:59 DAILY LEONARD Furosemide 40 mg 11/16/23 01:20 11/16/23 02:11 Furosemide 40mg/4ml Vial IV 11/16/23 01:21 40 mg ONCE ONE Administration Heparin Sodium (Porcine) 10,000 unit 11/17/23 07:37 11/17/23 12:18 Heparin 1,000 Units/Ml 10ml Vial (Programming Equipment Operator) IV 11/17/23 11:38 3,000 unit NEEDED PRN Administration Emergency Box Equipment Maintenance Superintendent Heparin Sodium/Sodium Chloride 3,000 unit 11/17/23 07:37 11/17/23 12:19 Heparin 1,000 Units/500ml Ns (Programming Equipment Operator) IV 11/17/23 07:38 3,000 unit ONCE ONE Administration Hydralazine HCl 20 mg 11/17/23 07:37 Hydralazine 20mg/Ml Vial IV 11/17/23 11:38 ONCE PRN sbp>160 Lactated Ringer's 1,000 mls @ 999 mls/hr 11/15/23 22:20 11/15/23 22:42 Lactated Ringer's 1000 Ml Bag IV 11/15/23 23:20 999 mls/hr .Q1H1M ONE Administration Sodium Chloride 1,000 mls @ 999 mls/hr 11/16/23 00:01 11/16/23 01:20 Sod Chlor 0.9% 1000ml Bag IV 11/16/23 01:01 Not Given .Q1H1M ONE Magnesium Sulfate 2 gm in 50 mls @ 50 mls/hr 11/16/23 00:39 11/16/23 00:56 Magnesium Sulfate 2gm/50ml Premix IV 11/16/23 01:38 50 mls/hr ONCE ONE Administration Ceftriaxone Sodium 1 gm/ 50 mls @ 100 mls/hr 11/16/23 00:45 11/16/23 01:30 Sodium Chloride IV 11/26/23 00:44 100 mls/hr Q24H LEONARD Administration Doxycycline Hyclate 100 mg/ 250 mls @ 166.667 mls/hr 11/16/23 00:38 11/16/23 02:09 Sodium Chloride IV 11/16/23 00:39 166.667 mls/hr ONCE ONE Administration Azithromycin 500 mg/ Sodium 250 mls @ 250 mls/hr 11/16/23 09:00 11/19/23 08:18 Chloride IV 11/26/23 08:59 250 mls/hr Q24H LEONARD Administration Adenosine 180 mg/ Sodium 90 mls @ 280.946 mls/hr 11/17/23 07:37 Chloride IV 11/17/23 11:38 ONCE PRN fractional flow reserve 180 MCG/KG/MIN Adenosine 90 mg/ Sodium 90 mls @ 561.892 mls/hr 11/17/23 07:37 Chloride IV 11/17/23 11:38 ONCE PRN fractional flow reserve 180 MCG/KG/MIN Sodium Chloride 1,000 mls @ 25 mls/hr 11/17/23 07:45 11/17/23 12:19 Sod Chloride 0.9% 500ml Bag IV 11/18/23 07:38 25 mls/hr .Q25H LEONARD Administration Azithromycin 500 mg/ Sodium 250 mls @ 250 mls/hr 11/20/23 09:00 Chloride IV 11/30/23 08:59 Q24H LEONARD Iopamidol 50 ml 11/17/23 13:34 11/17/23 13:35 Iopamidol-370 (76%);100ml Bottle IV 11/17/23 13:35 50 ml ONCE ONE Administration Labetalol HCl 20 mg 11/17/23 07:37 Labetalol 20mg/4ml Syringe IV 11/17/23 11:38 ONCE PRN sbp>160 Lidocaine HCl 20 ml 11/17/23 07:37 11/17/23 12:18 Lidocaine 1% 10ml Mdv IJ 11/17/23 07:38 10 ml ONCE ONE Administration Lidocaine HCl 20 ml 11/17/23 07:37 11/17/23 12:49 Lidocaine 1% 5ml Pf Vial IJ 11/17/23 07:38 Not Given ONCE ONE Lisinopril 5 mg 11/17/23 09:00 11/17/23 08:11 Lisinopril 5mg Tablet PO 12/17/23 08:59 5 mg DAILY LEONARD Administration Methylprednisolone Sodium Succinate 125 mg 11/16/23 00:38 11/16/23 00:56 Methylprednisolone Sod Succ 125mg Vial IV 11/16/23 00:39 125 mg ONCE ONE Administration Methylprednisolone Sodium Succinate 40 mg 11/16/23 09:00 11/16/23 09:11 Methylprednisolone Sod Succ 40mg Vial IV 12/16/23 08:59 40 mg Q8H LEONARD Administration Metoprolol Succinate 25 mg 11/17/23 09:00 Metoprolol Succinate Xl 25mg Tablet PO 12/17/23 08:59 DAILY LEONARD Midazolam HCl 1 mg 11/17/23 07:37 Midazolam 2mg/2ml Vial IV 11/17/23 19:38 Q3MINP PRN Sedation Midazolam HCl 1 mg 11/17/23 07:37 11/17/23 12:19 Midazolam Hcl 1mg/1ml 5ml Vial IV 11/17/23 19:38 4 mg Q3MINP PRN Administration Sedation Miscellaneous 1 unit 11/16/23 10:03 11/16/23 10:15 Aerochamber/Optihaler MC 11/16/23 10:04 Not Given ONCE ONE Naloxone HCl 0.4 mg 11/17/23 07:37 Naloxone 0.4mg/Ml Vial IV 11/17/23 19:38 Q5MINP PRN Decreased Respirations Nitroglycerin 800 mcg 11/17/23 07:37 11/17/23 12:18 Nitroglycerin 800mcg/8ml Syr (Programming Equipment Operator) IA 11/17/23 11:38 800 mcg NEEDED PRN Administration Emergency Box Equipment Maintenance Superintendent Ondansetron HCl 4 mg 11/16/23 00:01 11/16/23 00:12 Ondansetron 4mg/2ml Vial IV 11/16/23 00:02 4 mg ONCE ONE Administration Phenazopyridine HCl 200 mg 11/16/23 06:01 11/16/23 06:24 Phenazopyridine 200mg Tablet PO 11/16/23 06:02 200 mg ONCE ONE Administration Prednisone 40 mg 11/16/23 09:45 11/16/23 10:15 Prednisone 20mg Tab PO 11/21/23 09:44 Not Given DAILY LEONARD Protamine Sulfate 50 mg 11/17/23 07:37 Protamine Sulfate 50mg/5ml Vial (Programming Equipment Operator) IV 11/17/23 11:38 ONCE PRN act>200 Sodium Chloride 10 ml 11/17/23 07:37 Sodium Chloride 0.9% 10ml Flush Syringe IV 12/17/23 07:36 NEEDED PRN Maintain IV Site Verapamil HCl 2.5 mg 11/17/23 07:37 11/17/23 12:18 Verapamil 2.5mg/Ml 2ml Vial IV 11/17/23 07:38 2.5 mg ONCE ONE Administration ORDERS Category Date Time Status Consult to Cardiology [CONS] Routine Cons 11/16/23 04:41 Active Consult to Pulmonology [CONS] Routine Cons 11/16/23 01:20 Active Chest XR -- portable [XR chest portable] Stat Exams 11/16/23 00:07 Completed BNP [NT Pro Brain Natriuretic Pep.] Routine Lab 11/16/23 06:08 Completed CBC w/Auto Diff [Complete Blood Count Auto Diff] Stat Lab 11/15/23 22:30 Completed CMP [Comprehensive Metabolic Panel] Stat Lab 11/15/23 22:30 Completed Comprehensive Metabolic Panel AMLAB Lab 11/16/23 06:08 Completed Diarrhea 23 Panel, PCR Stat Lab 11/15/23 22:21 Ordered Lactic Acid AMLAB Lab 11/16/23 06:08 Completed Lactic Acid Follow Up (RFLX 1) Stat Lab 11/16/23 03:50 Completed Lactic Acid Stat Lab 11/15/23 22:30 Completed Lipid Panel AMLAB Lab 11/16/23 06:08 Completed Magnesium Stat Lab 11/15/23 22:30 Completed Procalcitonin Stat Lab 11/16/23 00:01 Completed Trop I [Troponin I] Stat Lab 11/16/23 00:21 Completed Troponin I Q3H Lab 11/16/23 03:50 Completed Troponin I Q3H Lab 11/16/23 06:08 Completed UA [Urinalysis and Microscopic] Stat Lab 11/15/23 00:06 Completed Blood Culture Stat Micro 11/16/23 01:22 Results Sputum Culture & Gram Stain Stat Micro 11/16/23 07:44 Ordered Arterial Blood Gas AMLAB RT 11/16/23 05:00 Completed Lactate Arterial Routine RT 11/16/23 06:00 Ordered VBG [Venous Blood Gas] Stat RT 11/16/23 00:11 Completed CA echo doppler complete Routine Y 11/16/23 09:03 Completed ECG initial [place] Stat Y 11/16/23 04:34 Completed Medical Decision Narrative: In summary patient is a 68-year-old female who presents to the emergency department for evaluation of dysuria and diarrhea. Patient is hemodynamically stable upon arrival, afebrile. Physical exam is unremarkable and nonfocal including no abdominal pain no CVA tenderness to percussion bilaterally. Differential diagnosis includes vaginitis versus urinary tract infection versus cystitis versus pyelonephritis versus gastroenteritis versus C. difficile etc. Initial workup will be conducted with hematologic labs diarrhea panel urinalysis. Initial interventions include crystalloid bolus Toradol Tylenol. Initial workup started and and pending at the time of handoff to Dr. Cani at 2300 hrs. <Luz Cain MD - Last Filed: 11/16/23 00:56> Vital Signs: 11/15/23 21:55 11/15/23 23:30 11/16/23 00:00 Temperature 97.6 F Temperature Source Oral Pulse Rate 71 118 H Pulse Rate [Right] 77 Respiratory Rate 20 Blood Pressure 166/68 H 202/104 H Blood Pressure [Left Arm] 169/105 H Blood Pressure Mean [Left Arm] 126 Blood Pressure Source Blood Pressure Source [Left Arm] Automatic Cuff 02 Sat by Pulse Oximetry 98 100 89 L Oxygen Delivery Method Nasal Cannula Nasal Cannula Nasal Cannula Oxygen Flow Rate (LPM) 3 3 4 11/16/23 00:15 11/16/23 00:30 11/16/23 00:35 Temperature Temperature Source Pulse Rate 120 H 122 H 127 H Pulse Rate [Right] Respiratory Rate Blood Pressure 200/101 H Blood Pressure [Left Arm] Blood Pressure Mean [Left Arm] Blood Pressure Source Blood Pressure Source [Left Arm] 02 Sat by Pulse Oximetry 89 L 89 L Oxygen Delivery Method Aerosol Mask Aerosol Mask Oxygen Flow Rate (LPM) 11/16/23 00:35 11/16/23 00:45 11/16/23 01:00 Temperature 97.8 F Temperature Source Axillary Pulse Rate 127 H 128 H 118 H Pulse Rate [Right] Respiratory Rate 25 H Blood Pressure 185/98 H 155/83 H Blood Pressure [Left Arm] Blood Pressure Mean [Left Arm] Blood Pressure Source Automatic Cuff Blood Pressure Source [Left Arm] 02 Sat by Pulse Oximetry 94 L Oxygen Delivery Method Aerosol Mask BiPAP Oxygen Flow Rate (LPM) 11/16/23 01:00 11/16/23 01:15 11/16/23 01:31 Temperature Temperature Source Pulse Rate 119 H 101 H 107 H Pulse Rate [Right] Respiratory Rate Blood Pressure 155/83 H 117/74 Blood Pressure [Left Arm] Blood Pressure Mean [Left Arm] Blood Pressure Source Blood Pressure Source [Left Arm] 02 Sat by Pulse Oximetry 93 L 96 90 L Oxygen Delivery Method BiPAP BiPAP BiPAP Oxygen Flow Rate (LPM) 11/16/23 01:45 Temperature Temperature Source Pulse Rate 102 H Pulse Rate [Right] Respiratory Rate Blood Pressure Blood Pressure [Left Arm] Blood Pressure Mean [Left Arm] Blood Pressure Source Blood Pressure Source [Left Arm] 02 Sat by Pulse Oximetry 100 Oxygen Delivery Method BiPAP Oxygen Flow Rate (LPM) Lab Data Lab results reviewed: Yes I reviewed the patient's lab results. Lab Results 11/15/23 00:06: Urine Color Yellow, Urine Appearance Cloudy, Urine pH 6.0, Ur Specific [place] >= 1.030, Urine Protein Trace, Urine Glucose (UA) Negative, Urine Ketones Negative, Urine Blood 1+, Urine Nitrate Positive, Urine Bilirubin Negative, Urine Urobilinogen 1.0, Ur Leukocyte Esterase Negative, Urine RBC 50-100, Urine WBC Occasional, Ur Squamous Epith Cells Occasional, Urine Bacteria Trace 11/15/23 22:30: WBC 6.0, RBC 4.17 L, Hgb 12.8, Hct 39.6, MCV 95.1, MCH 30.7, MCHC 32.3, RDW 14.0, Plt Count 177, MPV 9.7, Neut % (Auto) 60.3, Lymph % (Auto) 26.8, Sebastian % (Auto) 5.8, Eos % (Auto) 5.9, Baso % (Auto) 1.1, Neut # (Auto) 3.6, Lymph # (Auto) 1.6, Sebastian # (Auto) 0.4, Eos # (Auto) 0.4, Baso # (Auto) 0.1, Sodium 140, Potassium 4.1, Chloride 105, Carbon Dioxide 32 H, Anion Gap 7.1, BUN 13, Creatinine 0.70, Estimated Creat Clear 41, Estimated GFR 83, Est GFR ( Amer) 100, Glucose 110 H, Lactate 0.6 L, Calcium 9.5, Magnesium 2.0, Total Bilirubin 0.4, AST 28, ALT 18, Alkaline Phosphatase 146 H, Troponin I < 0.01, Total Protein 7.1, Albumin 3.8, Globulin 3.3 H, Albumin/Globulin Ratio 1.2, Procalcitonin 0.039 11/16/23 00:11: VBG pH 7.12 L, VBG pCO2 83.9 H, VBG pO2 92.6 H, VBG HCO3 26.5, VBG Total CO2 29.1 H, VBG O2 Saturation 95.1 H, VBG Base Excess -2.8 L, VBG Lactic Acid 3.9 H 11/16/23 03:50: Lactate 2.0, Troponin I 0.48 H 11/16/23 05:00: Specimen Source Left radial, O2 % 32% fio2, ABG pH 7.39, ABG pCO2 45.1 H, ABG pO2 87.6, ABG HCO3 26.6 H, ABG Total CO2 27.9 H, ABG O2 Saturation 97, ABG Base Excess 1.6, Herminio Test Acceptable, Vent Rate 20, PEEP Bipap 18/8 11/16/23 06:08: Sodium 140, Potassium 3.7, Chloride 104, Carbon Dioxide 29, Anion Gap 10.7, BUN 13, Creatinine 0.70, Estimated Creat Clear 40, Estimated GFR 83, Est GFR ( Amer) 100, Glucose 166 H D, Lactate 1.8, Calcium 9.6, Total Bilirubin 0.3, AST 100 H D, ALT 67 D, Alkaline Phosphatase 185 H, Troponin I 0.65 H, NT-Pro-B Natriuret Pep 516 H, Total Protein 7.0, Albumin 3.8, Globulin 3.2, Albumin/Globulin Ratio 1.2, Triglycerides 84, Cholesterol 155, LDL Cholesterol Direct 79.89 L, VLDL Cholesterol 17, HDL Cholesterol 53, Cholesterol/HDL Ratio 2.9 Orders (Tests/Meds): ED MEDICATIONS Generic Name Dose Route Start Last Admin Trade Name Freq PRN Reason Stop Dose Admin Acetaminophen 500 mg 11/17/23 13:41 Acetaminophen 500mg Tab PO 12/17/23 13:40 Q6HP PRN Mild to Moderate Pain (1-6) Hydrocodone Bitart/Acetaminophen 2 tab 11/17/23 13:41 11/20/23 15:44 Hydrocodone/Apap 5/325 Mg Tablet PO 12/17/23 13:40 2 tab Q4HP PRN Administration Severe Pain (7-10) Albuterol/Ipratropium 3 ml 11/16/23 09:34 Ipratropium/Albuterol 3 Ml Neb IH 12/16/23 09:33 Q4HP PRN Shortness Of Breath Apixaban 2.5 mg 11/16/23 09:00 11/20/23 08:19 Apixaban 5mg Tablet PO 12/16/23 08:59 2.5 mg BID LEONARD Administration Atorvastatin Calcium 10 mg 11/16/23 21:00 11/19/23 20:39 Atorvastatin 10mg Tablet PO 12/16/23 20:59 10 mg HS LEONARD Administration Azithromycin 500 mg 11/20/23 09:00 11/20/23 08:19 Azithromycin 250mg Tablet PO 11/30/23 08:59 500 mg DAILY LEONARD Administration Citalopram Hydrobromide 10 mg 11/17/23 09:00 11/20/23 08:20 Citalopram 10mg Tablet PO 12/17/23 08:59 10 mg DAILY LEONARD Administration Clonazepam 1 mg 11/16/23 10:15 11/20/23 08:26 Clonazepam 1mg Tablet PO 12/16/23 10:14 1 mg BID LEONARD Administration Clopidogrel Bisulfate 75 mg 11/19/23 09:00 11/20/23 08:20 Clopidogrel 75mg Tab PO 12/19/23 08:59 75 mg DAILY LEONARD Administration Empagliflozin 10 mg 11/17/23 09:00 11/20/23 08:20 Empagliflozin 10mg Tablet PO 12/17/23 08:59 10 mg DAILY LEONARD Administration Fluticasone/Umeclidinium/Vilanterol 1 puff 11/16/23 09:45 11/20/23 05:21 Fluticasone/Umeclidin/Vilanter 100/62.5/25mcg Inhaler IH 12/16/23 09:44 1 puff DAILY LEONARD Administration Gabapentin 600 mg 11/16/23 21:00 11/20/23 08:20 Gabapentin 600mg Tablet PO 12/16/23 20:59 600 mg BID LEONARD Administration Ceftriaxone Sodium 1 gm/ 50 mls @ 100 mls/hr 11/16/23 21:00 11/19/23 20:39 Sodium Chloride IV 11/26/23 20:59 100 mls/hr Q24H LEONARD Administration Melatonin 5 mg 11/16/23 21:00 11/19/23 20:39 Melatonin 5mg Tablet PO 12/16/23 20:59 5 mg HS LEONARD Administration Metoprolol Succinate 25 mg 11/16/23 09:15 11/20/23 08:21 Metoprolol Succinate Xl 25mg Tablet PO 12/16/23 09:14 25 mg DAILY LEONARD Administration Nicotine 21 mg 11/16/23 11:00 11/16/23 11:31 Nicotine 21mg/24hr Patch TD 12/16/23 10:59 21 mg DAILYP PRN Administration Nicotine Cravings Ondansetron HCl 8 mg 11/16/23 10:10 11/19/23 20:39 Ondansetron 4mg Odt SL 12/16/23 10:09 8 mg Q8HP PRN Administration nausea and vomiting Pantoprazole Sodium 40 mg 11/17/23 09:00 11/20/23 08:20 Pantoprazole 40mg Tablet PO 12/17/23 08:59 40 mg DAILY LEONARD Administration Polyethylene Glycol 17 gm 11/19/23 16:00 11/20/23 08:21 Polyethylene Glycol 3350 17 Gm Packet PO 12/19/23 15:59 Not Given DAILY LEONARD Prednisone 40 mg 11/17/23 09:00 11/20/23 08:19 Prednisone 20mg Tab PO 12/17/23 08:59 40 mg DAILY LEONARD Administration Sacubitril/Valsartan 1 each 11/18/23 09:00 11/20/23 08:20 Sacubitril/Valsartan 24-26mg Tablet PO 12/18/23 08:59 1 each BID LEONARD Administration Sodium Chloride 10 ml 11/16/23 07:20 Sodium Chloride 0.9% 10ml Flush Syringe IV 12/16/23 07:19 NEEDED PRN Maintain IV Site Sodium Chloride 3 ml 11/16/23 07:44 11/16/23 11:10 Sodium Chloride 3% 15ml [facility] 12/16/23 07:43 3 ml ONCE PRN Administration [employer] Spironolactone 25 mg 11/17/23 09:00 11/20/23 08:19 Spironolactone 25mg Tablet PO 12/17/23 08:59 25 mg DAILY LEONARD Administration Discontinued Medications Generic Name Dose Route Start Last Admin Trade Name Freq PRN Reason Stop Dose Admin Acetaminophen 1,000 mg 11/15/23 22:20 11/15/23 22:42 Acetaminophen 1,000mg/100ml Vial IV 11/15/23 22:21 1,000 mg ONCE ONE Administration Albuterol Sulfate 2 puff 11/16/23 10:03 Albuterol-Hfa 90mcg/Puff Inhaler 8gm 12/16/23 10:02 Q4HP PRN Shortness Of Breath Albuterol/Ipratropium 3 ml 11/16/23 00:01 11/16/23 00:12 Ipratropium/Albuterol 3 Ml [facility] 11/16/23 00:02 3 ml ONCE ONE Administration Albuterol/Ipratropium 9 ml 11/16/23 00:23 11/16/23 00:35 Ipratropium/Albuterol 3 Ml [facility] 11/16/23 00:24 9 ml ONCE ONE Administration Albuterol/Ipratropium 3 ml 11/16/23 02:00 11/16/23 02:34 Ipratropium/Albuterol 3 Ml [facility] 12/16/23 01:59 Not Given Q4HP LEONARD Albuterol/Ipratropium 3 ml 11/16/23 03:00 11/16/23 06:02 Ipratropium/Albuterol 3 Ml [facility] 12/16/23 02:59 3 ml Q4RT LEONARD Administration Apixaban 2.5 mg 11/16/23 21:00 Apixaban 5mg Tablet PO 12/16/23 20:59 BID LEONARD Aspirin 325 mg 11/16/23 04:39 11/16/23 04:49 Aspirin 325mg Tablet PO 11/16/23 04:40 325 mg ONCE ONE Administration Aspirin 81 mg 11/16/23 10:45 11/18/23 08:41 Aspirin Ec 81mg Tablet PO 12/16/23 10:44 81 mg DAILY LEONARD Administration Clopidogrel Bisulfate 300 mg 11/16/23 10:29 11/16/23 11:31 Clopidogrel 300mg Tablet PO 11/16/23 10:30 300 mg ONCE ONE Administration Diphenhydramine HCl 50 mg 11/17/23 07:37 11/17/23 12:17 Diphenhydramine 50mg/Ml Vial IV 11/17/23 07:38 50 mg ONCE ONE Administration Fentanyl Citrate 50 mcg 11/17/23 07:37 11/17/23 12:19 Fentanyl 100mcg/2ml Vial IV 11/17/23 19:38 100 mcg Q3MINP PRN Administration Moderate to Severe Pain (4-10) Fentanyl Citrate 25 mcg 11/17/23 07:37 Fentanyl 250mcg/5ml Vial IV 11/17/23 19:38 Q3MINP PRN Moderate to Severe Pain (4-10) Fentanyl Citrate 50 mcg 11/17/23 07:37 Fentanyl 250mcg/5ml Vial IV 11/17/23 19:38 Q3MINP PRN Moderate to Severe Pain (4-10) Fentanyl Citrate 25 mcg 11/17/23 07:37 Fentanyl 100mcg/2ml Vial IV 11/17/23 19:38 Q3MINP PRN Moderate to Severe Pain (4-10) Flumazenil 0.2 mg 11/17/23 07:37 Flumazenil 0.1mg/Ml 5ml Vial IV 11/17/23 19:38 NEEDED PRN Sedation Fluticasone/Umeclidinium/Vilanterol 1 puff 11/17/23 09:00 Fluticasone/Umeclidin/Vilanter 100/62.5/25mcg Inhaler IH 12/17/23 08:59 DAILY LEONARD Furosemide 40 mg 11/16/23 01:20 11/16/23 02:11 Furosemide 40mg/4ml Vial IV 11/16/23 01:21 40 mg ONCE ONE Administration Heparin Sodium (Porcine) 10,000 unit 11/17/23 07:37 11/17/23 12:18 Heparin 1,000 Units/Ml 10ml Vial (Programming Equipment Operator) IV 11/17/23 11:38 3,000 unit NEEDED PRN Administration Emergency Box Equipment Maintenance Superintendent Heparin Sodium/Sodium Chloride 3,000 unit 11/17/23 07:37 11/17/23 12:19 Heparin 1,000 Units/500ml Ns (Programming Equipment Operator) IV 11/17/23 07:38 3,000 unit ONCE ONE Administration Hydralazine HCl 20 mg 11/17/23 07:37 Hydralazine 20mg/Ml Vial IV 11/17/23 11:38 ONCE PRN sbp>160 Lactated Ringer's 1,000 mls @ 999 mls/hr 11/15/23 22:20 11/15/23 22:42 Lactated Ringer's 1000 Ml Bag IV 11/15/23 23:20 999 mls/hr .Q1H1M ONE Administration Sodium Chloride 1,000 mls @ 999 mls/hr 11/16/23 00:01 11/16/23 01:20 Sod Chlor 0.9% 1000ml Bag IV 11/16/23 01:01 Not Given .Q1H1M ONE Magnesium Sulfate 2 gm in 50 mls @ 50 mls/hr 11/16/23 00:39 11/16/23 00:56 Magnesium Sulfate 2gm/50ml Premix IV 11/16/23 01:38 50 mls/hr ONCE ONE Administration Ceftriaxone Sodium 1 gm/ 50 mls @ 100 mls/hr 11/16/23 00:45 11/16/23 01:30 Sodium Chloride IV 11/26/23 00:44 100 mls/hr Q24H LEONARD Administration Doxycycline Hyclate 100 mg/ 250 mls @ 166.667 mls/hr 11/16/23 00:38 11/16/23 02:09 Sodium Chloride IV 11/16/23 00:39 166.667 mls/hr ONCE ONE Administration Azithromycin 500 mg/ Sodium 250 mls @ 250 mls/hr 11/16/23 09:00 11/19/23 08:18 Chloride IV 11/26/23 08:59 250 mls/hr Q24H LEONARD Administration Adenosine 180 mg/ Sodium 90 mls @ 280.946 mls/hr 11/17/23 07:37 Chloride IV 11/17/23 11:38 ONCE PRN fractional flow reserve 180 MCG/KG/MIN Adenosine 90 mg/ Sodium 90 mls @ 561.892 mls/hr 11/17/23 07:37 Chloride IV 11/17/23 11:38 ONCE PRN fractional flow reserve 180 MCG/KG/MIN Sodium Chloride 1,000 mls @ 25 mls/hr 11/17/23 07:45 11/17/23 12:19 Sod Chloride 0.9% 500ml Bag IV 11/18/23 07:38 25 mls/hr .Q25H LEONARD Administration Azithromycin 500 mg/ Sodium 250 mls @ 250 mls/hr 11/20/23 09:00 Chloride IV 11/30/23 08:59 Q24H LEONARD Iopamidol 50 ml 11/17/23 13:34 11/17/23 13:35 Iopamidol-370 (76%);100ml Bottle IV 11/17/23 13:35 50 ml ONCE ONE Administration Labetalol HCl 20 mg 11/17/23 07:37 Labetalol 20mg/4ml Syringe IV 11/17/23 11:38 ONCE PRN sbp>160 Lidocaine HCl 20 ml 11/17/23 07:37 11/17/23 12:18 Lidocaine 1% 10ml Mdv IJ 11/17/23 07:38 10 ml ONCE ONE Administration Lidocaine HCl 20 ml 11/17/23 07:37 11/17/23 12:49 Lidocaine 1% 5ml Pf Vial IJ 11/17/23 07:38 Not Given ONCE ONE Lisinopril 5 mg 11/17/23 09:00 11/17/23 08:11 Lisinopril 5mg Tablet PO 12/17/23 08:59 5 mg DAILY LEONARD Administration Methylprednisolone Sodium Succinate 125 mg 11/16/23 00:38 11/16/23 00:56 Methylprednisolone Sod Succ 125mg Vial IV 11/16/23 00:39 125 mg ONCE ONE Administration Methylprednisolone Sodium Succinate 40 mg 11/16/23 09:00 11/16/23 09:11 Methylprednisolone Sod Succ 40mg Vial IV 12/16/23 08:59 40 mg Q8H LEONARD Administration Metoprolol Succinate 25 mg 11/17/23 09:00 Metoprolol Succinate Xl 25mg Tablet PO 12/17/23 08:59 DAILY LEONARD Midazolam HCl 1 mg 11/17/23 07:37 Midazolam 2mg/2ml Vial IV 11/17/23 19:38 Q3MINP PRN Sedation Midazolam HCl 1 mg 11/17/23 07:37 11/17/23 12:19 Midazolam Hcl 1mg/1ml 5ml Vial IV 11/17/23 19:38 4 mg Q3MINP PRN Administration Sedation Miscellaneous 1 unit 11/16/23 10:03 11/16/23 10:15 Aerochamber/Optihaler MC 11/16/23 10:04 Not Given ONCE ONE Naloxone HCl 0.4 mg 11/17/23 07:37 Naloxone 0.4mg/Ml Vial IV 11/17/23 19:38 Q5MINP PRN Decreased Respirations Nitroglycerin 800 mcg 11/17/23 07:37 11/17/23 12:18 Nitroglycerin 800mcg/8ml Syr (Programming Equipment Operator) IA 11/17/23 11:38 800 mcg NEEDED PRN Administration Emergency Box Equipment Maintenance Superintendent Ondansetron HCl 4 mg 11/16/23 00:01 11/16/23 00:12 Ondansetron 4mg/2ml Vial IV 11/16/23 00:02 4 mg ONCE ONE Administration Phenazopyridine HCl 200 mg 11/16/23 06:01 11/16/23 06:24 Phenazopyridine 200mg Tablet PO 11/16/23 06:02 200 mg ONCE ONE Administration Prednisone 40 mg 11/16/23 09:45 11/16/23 10:15 Prednisone 20mg Tab PO 11/21/23 09:44 Not Given DAILY LEONARD Protamine Sulfate 50 mg 11/17/23 07:37 Protamine Sulfate 50mg/5ml Vial (Programming Equipment Operator) IV 11/17/23 11:38 ONCE PRN act>200 Sodium Chloride 10 ml 11/17/23 07:37 Sodium Chloride 0.9% 10ml Flush Syringe IV 12/17/23 07:36 NEEDED PRN Maintain IV Site Verapamil HCl 2.5 mg 11/17/23 07:37 11/17/23 12:18 Verapamil 2.5mg/Ml 2ml Vial IV 11/17/23 07:38 2.5 mg ONCE ONE Administration ORDERS Category Date Time Status Consult to Cardiology [CONS] Routine Cons 11/16/23 04:41 Active Consult to Pulmonology [CONS] Routine Cons 11/16/23 01:20 Active Chest XR -- portable [XR chest portable] Stat Exams 11/16/23 00:07 Completed BNP [NT Pro Brain Natriuretic Pep.] Routine Lab 11/16/23 06:08 Completed CBC w/Auto Diff [Complete Blood Count Auto Diff] Stat Lab 11/15/23 22:30 Completed CMP [Comprehensive Metabolic Panel] Stat Lab 11/15/23 22:30 Completed Comprehensive Metabolic Panel AMLAB Lab 11/16/23 06:08 Completed Diarrhea 23 Panel, PCR Stat Lab 11/15/23 22:21 Ordered Lactic Acid AMLAB Lab 11/16/23 06:08 Completed Lactic Acid Follow Up (RFLX 1) Stat Lab 11/16/23 03:50 Completed Lactic Acid Stat Lab 11/15/23 22:30 Completed Lipid Panel AMLAB Lab 11/16/23 06:08 Completed Magnesium Stat Lab 11/15/23 22:30 Completed Procalcitonin Stat Lab 11/16/23 00:01 Completed Trop I [Troponin I] Stat Lab 11/16/23 00:21 Completed Troponin I Q3H Lab 11/16/23 03:50 Completed Troponin I Q3H Lab 11/16/23 06:08 Completed UA [Urinalysis and Microscopic] Stat Lab 11/15/23 00:06 Completed Blood Culture Stat Micro 11/16/23 01:22 Results Sputum Culture & Gram Stain Stat Micro 11/16/23 07:44 Ordered Arterial Blood Gas AMLAB RT 11/16/23 05:00 Completed Lactate Arterial Routine RT 11/16/23 06:00 Ordered VBG [Venous Blood Gas] Stat RT 11/16/23 00:11 Completed CA echo doppler complete Routine Y 11/16/23 09:03 Completed ECG initial [place] Stat Y 11/16/23 04:34 Completed Medical Decision Narrative: In summary patient is a 68-year-old female who presents to the emergency department for evaluation of dysuria and diarrhea. Patient is hemodynamically stable upon arrival, afebrile. Physical exam is unremarkable and nonfocal including no abdominal pain no CVA tenderness to percussion bilaterally. Differential diagnosis includes vaginitis versus urinary tract infection versus cystitis versus pyelonephritis versus gastroenteritis versus C. difficile etc. Initial workup will be conducted with hematologic labs diarrhea panel urinalysis. Initial interventions include crystalloid bolus Toradol Tylenol. Initial workup started and and pending at the time of handoff to Dr. Cain at 2300 hrs. While awaiting urinalysis patient ambulated to bathroom and when she came back she was severely short of breath with an oxygen saturation of 84% on baseline oxygen requirement. On my evaluation she had very diminished breath sounds bilaterally with increased work of breathing and new tachycardia. Expressed to nurse to start patient on a DuoNeb and I went to evaluate patient's blood work on the chart and on immediate return to patient bedside after this she had increased work of breathing and was poorly tolerating breathing treatment, she responded to person but could not tell me where she is or what is going on and groans occasionally but does move all extremities without difficulty and opens eyes spontaneously. Her daughter at bedside expressed that patient has expressed several times in the past that she would not want intubated and does not want resuscitated and has told her multiple times that she would like to be DNR. This was verified with nursing at bedside and daughter signed the paperwork confirmed patient is DNR/DNI. I did discuss the severity of patient's current status and concern for acute hypoxic respiratory failure possibly in the setting of a COPD exacerbation. Her VBG was acidotic with pH of 7.12 and some CO2 retention with pCO2 of 83.9, lactate did increase from initial arrival to 3.9 now. X-ray does not show a focal consolidation but does show of expanded lung graham and patient started on Rocephin and doxycycline, blood cultures obtained. I did speak with the hospitalist about admitting patient and they were agreeable with admission to ICU at present. <Lucien Aviles MD - Last Filed: 11/20/23 19:12> Vital Signs: 11/15/23 21:55 11/15/23 23:30 11/16/23 00:00 Temperature 97.6 F Temperature Source Oral Pulse Rate 71 118 H Pulse Rate [Right] 77 Respiratory Rate 20 Blood Pressure 166/68 H 202/104 H Blood Pressure [Left Arm] 169/105 H Blood Pressure Mean [Left Arm] 126 Blood Pressure Source Blood Pressure Source [Left Arm] Automatic Cuff 02 Sat by Pulse Oximetry 98 100 89 L Oxygen Delivery Method Nasal Cannula Nasal Cannula Nasal Cannula Oxygen Flow Rate (LPM) 3 3 4 11/16/23 00:15 11/16/23 00:30 11/16/23 00:35 Temperature Temperature Source Pulse Rate 120 H 122 H 127 H Pulse Rate [Right] Respiratory Rate Blood Pressure 200/101 H Blood Pressure [Left Arm] Blood Pressure Mean [Left Arm] Blood Pressure Source Blood Pressure Source [Left Arm] 02 Sat by Pulse Oximetry 89 L 89 L Oxygen Delivery Method Aerosol Mask Aerosol Mask Oxygen Flow Rate (LPM) 11/16/23 00:35 11/16/23 00:45 11/16/23 01:00 Temperature 97.8 F Temperature Source Axillary Pulse Rate 127 H 128 H 118 H Pulse Rate [Right] Respiratory Rate 25 H Blood Pressure 185/98 H 155/83 H Blood Pressure [Left Arm] Blood Pressure Mean [Left Arm] Blood Pressure Source Automatic Cuff Blood Pressure Source [Left Arm] 02 Sat by Pulse Oximetry 94 L Oxygen Delivery Method Aerosol Mask BiPAP Oxygen Flow Rate (LPM) 11/16/23 01:00 11/16/23 01:15 11/16/23 01:31 Temperature Temperature Source Pulse Rate 119 H 101 H 107 H Pulse Rate [Right] Respiratory Rate Blood Pressure 155/83 H 117/74 Blood Pressure [Left Arm] Blood Pressure Mean [Left Arm] Blood Pressure Source Blood Pressure Source [Left Arm] 02 Sat by Pulse Oximetry 93 L 96 90 L Oxygen Delivery Method BiPAP BiPAP BiPAP Oxygen Flow Rate (LPM) 11/16/23 01:45 Temperature Temperature Source Pulse Rate 102 H Pulse Rate [Right] Respiratory Rate Blood Pressure Blood Pressure [Left Arm] Blood Pressure Mean [Left Arm] Blood Pressure Source Blood Pressure Source [Left Arm] 02 Sat by Pulse Oximetry 100 Oxygen Delivery Method BiPAP Oxygen Flow Rate (LPM) Lab Data Lab Results 11/15/23 00:06: Urine Color Yellow, Urine Appearance Cloudy, Urine pH 6.0, Ur Specific [place] >= 1.030, Urine Protein Trace, Urine Glucose (UA) Negative, Urine Ketones Negative, Urine Blood 1+, Urine Nitrate Positive, Urine Bilirubin Negative, Urine Urobilinogen 1.0, Ur Leukocyte Esterase Negative, Urine RBC 50-100, Urine WBC Occasional, Ur Squamous Epith Cells Occasional, Urine Bacteria Trace 11/15/23 22:30: WBC 6.0, RBC 4.17 L, Hgb 12.8, Hct 39.6, MCV 95.1, MCH 30.7, MCHC 32.3, RDW 14.0, Plt Count 177, MPV 9.7, Neut % (Auto) 60.3, Lymph % (Auto) 26.8, Sebastian % (Auto) 5.8, Eos % (Auto) 5.9, Baso % (Auto) 1.1, Neut # (Auto) 3.6, Lymph # (Auto) 1.6, Sebastian # (Auto) 0.4, Eos # (Auto) 0.4, Baso # (Auto) 0.1, Sodium 140, Potassium 4.1, Chloride 105, Carbon Dioxide 32 H, Anion Gap 7.1, BUN 13, Creatinine 0.70, Estimated Creat Clear 41, Estimated GFR 83, Est GFR ( Amer) 100, Glucose 110 H, Lactate 0.6 L, Calcium 9.5, Magnesium 2.0, Total Bilirubin 0.4, AST 28, ALT 18, Alkaline Phosphatase 146 H, Troponin I < 0.01, Total Protein 7.1, Albumin 3.8, Globulin 3.3 H, Albumin/Globulin Ratio 1.2, Procalcitonin 0.039 11/16/23 00:11: VBG pH 7.12 L, VBG pCO2 83.9 H, VBG pO2 92.6 H, VBG HCO3 26.5, VBG Total CO2 29.1 H, VBG O2 Saturation 95.1 H, VBG Base Excess -2.8 L, VBG Lactic Acid 3.9 H 11/16/23 03:50: Lactate 2.0, Troponin I 0.48 H 11/16/23 05:00: Specimen Source Left radial, O2 % 32% fio2, ABG pH 7.39, ABG pCO2 45.1 H, ABG pO2 87.6, ABG HCO3 26.6 H, ABG Total CO2 27.9 H, ABG O2 Saturation 97, ABG Base Excess 1.6, Herminio Test Acceptable, Vent Rate 20, PEEP Bipap 18/8 11/16/23 06:08: Sodium 140, Potassium 3.7, Chloride 104, Carbon Dioxide 29, Anion Gap 10.7, BUN 13, Creatinine 0.70, Estimated Creat Clear 40, Estimated GFR 83, Est GFR ( Amer) 100, Glucose 166 H D, Lactate 1.8, Calcium 9.6, Total Bilirubin 0.3, AST 100 H D, ALT 67 D, Alkaline Phosphatase 185 H, Troponin I 0.65 H, NT-Pro-B Natriuret Pep 516 H, Total Protein 7.0, Albumin 3.8, Globulin 3.2, Albumin/Globulin Ratio 1.2, Triglycerides 84, Cholesterol 155, LDL Cholesterol Direct 79.89 L, VLDL Cholesterol 17, HDL Cholesterol 53, Cholesterol/HDL Ratio 2.9 Orders (Tests/Meds): ED MEDICATIONS Generic Name Dose Route Start Last Admin Trade Name Freq PRN Reason Stop Dose Admin Acetaminophen 500 mg 11/17/23 13:41 Acetaminophen 500mg Tab PO 12/17/23 13:40 Q6HP PRN Mild to Moderate Pain (1-6) Hydrocodone Bitart/Acetaminophen 2 tab 11/17/23 13:41 11/20/23 15:44 Hydrocodone/Apap 5/325 Mg Tablet PO 12/17/23 13:40 2 tab Q4HP PRN Administration Severe Pain (7-10) Albuterol/Ipratropium 3 ml 11/16/23 09:34 Ipratropium/Albuterol 3 Ml Neb IH 12/16/23 09:33 Q4HP PRN Shortness Of Breath Apixaban 2.5 mg 11/16/23 09:00 11/20/23 08:19 Apixaban 5mg Tablet PO 12/16/23 08:59 2.5 mg BID LEONARD Administration Atorvastatin Calcium 10 mg 11/16/23 21:00 11/19/23 20:39 Atorvastatin 10mg Tablet PO 12/16/23 20:59 10 mg HS LEONARD Administration Azithromycin 500 mg 11/20/23 09:00 11/20/23 08:19 Azithromycin 250mg Tablet PO 11/30/23 08:59 500 mg DAILY LEONARD Administration Citalopram Hydrobromide 10 mg 11/17/23 09:00 11/20/23 08:20 Citalopram 10mg Tablet PO 12/17/23 08:59 10 mg DAILY LEONARD Administration Clonazepam 1 mg 11/16/23 10:15 11/20/23 08:26 Clonazepam 1mg Tablet PO 12/16/23 10:14 1 mg BID LEONARD Administration Clopidogrel Bisulfate 75 mg 11/19/23 09:00 11/20/23 08:20 Clopidogrel 75mg Tab PO 12/19/23 08:59 75 mg DAILY LEONARD Administration Empagliflozin 10 mg 11/17/23 09:00 11/20/23 08:20 Empagliflozin 10mg Tablet PO 12/17/23 08:59 10 mg DAILY LEONARD Administration Fluticasone/Umeclidinium/Vilanterol 1 puff 11/16/23 09:45 11/20/23 05:21 Fluticasone/Umeclidin/Vilanter 100/62.5/25mcg Inhaler IH 12/16/23 09:44 1 puff DAILY LEONARD Administration Gabapentin 600 mg 11/16/23 21:00 11/20/23 08:20 Gabapentin 600mg Tablet PO 12/16/23 20:59 600 mg BID LEONARD Administration Ceftriaxone Sodium 1 gm/ 50 mls @ 100 mls/hr 11/16/23 21:00 11/19/23 20:39 Sodium Chloride IV 11/26/23 20:59 100 mls/hr Q24H LEONARD Administration Melatonin 5 mg 11/16/23 21:00 11/19/23 20:39 Melatonin 5mg Tablet PO 12/16/23 20:59 5 mg HS LEONARD Administration Metoprolol Succinate 25 mg 11/16/23 09:15 11/20/23 08:21 Metoprolol Succinate Xl 25mg Tablet PO 12/16/23 09:14 25 mg DAILY LEONARD Administration Nicotine 21 mg 11/16/23 11:00 11/16/23 11:31 Nicotine 21mg/24hr Patch TD 12/16/23 10:59 21 mg DAILYP PRN Administration Nicotine Cravings Ondansetron HCl 8 mg 11/16/23 10:10 11/19/23 20:39 Ondansetron 4mg Odt SL 12/16/23 10:09 8 mg Q8HP PRN Administration nausea and vomiting Pantoprazole Sodium 40 mg 11/17/23 09:00 11/20/23 08:20 Pantoprazole 40mg Tablet PO 12/17/23 08:59 40 mg DAILY LEONARD Administration Polyethylene Glycol 17 gm 11/19/23 16:00 11/20/23 08:21 Polyethylene Glycol 3350 17 Gm Packet PO 12/19/23 15:59 Not Given DAILY LEONARD Prednisone 40 mg 11/17/23 09:00 11/20/23 08:19 Prednisone 20mg Tab PO 12/17/23 08:59 40 mg DAILY LEONARD Administration Sacubitril/Valsartan 1 each 11/18/23 09:00 11/20/23 08:20 Sacubitril/Valsartan 24-26mg Tablet PO 12/18/23 08:59 1 each BID LEONARD Administration Sodium Chloride 10 ml 11/16/23 07:20 Sodium Chloride 0.9% 10ml Flush Syringe IV 12/16/23 07:19 NEEDED PRN Maintain IV Site Sodium Chloride 3 ml 11/16/23 07:44 11/16/23 11:10 Sodium Chloride 3% 15ml [facility] 12/16/23 07:43 3 ml ONCE PRN Administration INDUCE [employer]LE[employer] Spironolactone 25 mg 11/17/23 09:00 11/20/23 08:19 Spironolactone 25mg Tablet PO 12/17/23 08:59 25 mg DAILY LEONARD Administration Discontinued Medications Generic Name Dose Route Start Last Admin Trade Name Nikitaq PRN Reason Stop Dose Admin Acetaminophen 1,000 mg 11/15/23 22:20 11/15/23 22:42 Acetaminophen 1,000mg/100ml Vial IV 11/15/23 22:21 1,000 mg ONCE ONE Administration Albuterol Sulfate 2 puff 11/16/23 10:03 Albuterol-Hfa 90mcg/Puff Inhaler 8gm 12/16/23 10:02 Q4HP PRN Shortness Of Breath Albuterol/Ipratropium 3 ml 11/16/23 00:01 11/16/23 00:12 Ipratropium/Albuterol 3 Ml [facility]ly [facility] [facility] 11/16/23 00:02 3 ml ONCE ONE Administration Albuterol/Ipratropium 9 ml 11/16/23 00:23 11/16/23 00:35 Ipratropium/Albuterol 3 Ml Formerly [facility] 11/16/23 00:24 9 ml ONCE ONE Administration Albuterol/Ipratropium 3 ml 11/16/23 02:00 11/16/23 02:34 Ipratropium/Albuterol 3 Ml Formerly [facility] 12/16/23 01:59 Not Given Q4HP LEONARD Albuterol/Ipratropium 3 ml 11/16/23 03:00 11/16/23 06:02 Ipratropium/Albuterol 3 Ml Formerly [facility] 12/16/23 02:59 3 ml Q4RT LEONARD Administration Apixaban 2.5 mg 11/16/23 21:00 Apixaban 5mg Tablet PO 12/16/23 20:59 BID LEONARD Aspirin 325 mg 11/16/23 04:39 11/16/23 04:49 Aspirin 325mg Tablet PO 11/16/23 04:40 325 mg ONCE ONE Administration Aspirin 81 mg 11/16/23 10:45 11/18/23 08:41 Aspirin Ec 81mg Tablet PO 12/16/23 10:44 81 mg DAILY LEONARD Administration Clopidogrel Bisulfate 300 mg 11/16/23 10:29 11/16/23 11:31 Clopidogrel 300mg Tablet PO 11/16/23 10:30 300 mg ONCE ONE Administration Diphenhydramine HCl 50 mg 11/17/23 07:37 11/17/23 12:17 Diphenhydramine 50mg/Ml Vial IV 11/17/23 07:38 50 mg ONCE ONE Administration Fentanyl Citrate 50 mcg 11/17/23 07:37 11/17/23 12:19 Fentanyl 100mcg/2ml Vial IV 11/17/23 19:38 100 mcg Q3MINP PRN Administration Moderate to Severe Pain (4-10) Fentanyl Citrate 25 mcg 11/17/23 07:37 Fentanyl 250mcg/5ml Vial IV 11/17/23 19:38 Q3MINP PRN Moderate to Severe Pain (4-10) Fentanyl Citrate 50 mcg 11/17/23 07:37 Fentanyl 250mcg/5ml Vial IV 11/17/23 19:38 Q3MINP PRN Moderate to Severe Pain (4-10) Fentanyl Citrate 25 mcg 11/17/23 07:37 Fentanyl 100mcg/2ml Vial IV 11/17/23 19:38 Q3MINP PRN Moderate to Severe Pain (4-10) Flumazenil 0.2 mg 11/17/23 07:37 Flumazenil 0.1mg/Ml 5ml Vial IV 11/17/23 19:38 NEEDED PRN Sedation Fluticasone/Umeclidinium/Vilanterol 1 puff 11/17/23 09:00 Fluticasone/Umeclidin/Vilanter 100/62.5/25mcg Inhaler IH 12/17/23 08:59 DAILY LEONARD Furosemide 40 mg 11/16/23 01:20 11/16/23 02:11 Furosemide 40mg/4ml Vial IV 11/16/23 01:21 40 mg ONCE ONE Administration Heparin Sodium (Porcine) 10,000 unit 11/17/23 07:37 11/17/23 12:18 Heparin 1,000 Units/Ml 10ml Vial (Programming Equipment Operator) IV 11/17/23 11:38 3,000 unit NEEDED PRN Administration Emergency Box Equipment Maintenance Superintendent Heparin Sodium/Sodium Chloride 3,000 unit 11/17/23 07:37 11/17/23 12:19 Heparin 1,000 Units/500ml Ns (Programming Equipment Operator) IV 11/17/23 07:38 3,000 unit ONCE ONE Administration Hydralazine HCl 20 mg 11/17/23 07:37 Hydralazine 20mg/Ml Vial IV 11/17/23 11:38 ONCE PRN sbp>160 Lactated Ringer's 1,000 mls @ 999 mls/hr 11/15/23 22:20 11/15/23 22:42 Lactated Ringer's 1000 Ml Bag IV 11/15/23 23:20 999 mls/hr .Q1H1M ONE Administration Sodium Chloride 1,000 mls @ 999 mls/hr 11/16/23 00:01 11/16/23 01:20 Sod Chlor 0.9% 1000ml Bag IV 11/16/23 01:01 Not Given .Q1H1M ONE Magnesium Sulfate 2 gm in 50 mls @ 50 mls/hr 11/16/23 00:39 11/16/23 00:56 Magnesium Sulfate 2gm/50ml Premix IV 11/16/23 01:38 50 mls/hr ONCE ONE Administration Ceftriaxone Sodium 1 gm/ 50 mls @ 100 mls/hr 11/16/23 00:45 11/16/23 01:30 Sodium Chloride IV 11/26/23 00:44 100 mls/hr Q24H LEONARD Administration Doxycycline Hyclate 100 mg/ 250 mls @ 166.667 mls/hr 11/16/23 00:38 11/16/23 02:09 Sodium Chloride IV 11/16/23 00:39 166.667 mls/hr ONCE ONE Administration Azithromycin 500 mg/ Sodium 250 mls @ 250 mls/hr 11/16/23 09:00 11/19/23 08:18 Chloride IV 11/26/23 08:59 250 mls/hr Q24H LEONARD Administration Adenosine 180 mg/ Sodium 90 mls @ 280.946 mls/hr 11/17/23 07:37 Chloride IV 11/17/23 11:38 ONCE PRN fractional flow reserve 180 MCG/KG/MIN Adenosine 90 mg/ Sodium 90 mls @ 561.892 mls/hr 11/17/23 07:37 Chloride IV 11/17/23 11:38 ONCE PRN fractional flow reserve 180 MCG/KG/MIN Sodium Chloride 1,000 mls @ 25 mls/hr 11/17/23 07:45 11/17/23 12:19 Sod Chloride 0.9% 500ml Bag IV 11/18/23 07:38 25 mls/hr .Q25H LEONARD Administration Azithromycin 500 mg/ Sodium 250 mls @ 250 mls/hr 11/20/23 09:00 Chloride IV 11/30/23 08:59 Q24H LEONARD Iopamidol 50 ml 11/17/23 13:34 11/17/23 13:35 Iopamidol-370 (76%);100ml Bottle IV 11/17/23 13:35 50 ml ONCE ONE Administration Labetalol HCl 20 mg 11/17/23 07:37 Labetalol 20mg/4ml Syringe IV 11/17/23 11:38 ONCE PRN sbp>160 Lidocaine HCl 20 ml 11/17/23 07:37 11/17/23 12:18 Lidocaine 1% 10ml Mdv IJ 11/17/23 07:38 10 ml ONCE ONE Administration Lidocaine HCl 20 ml 11/17/23 07:37 11/17/23 12:49 Lidocaine 1% 5ml Pf Vial IJ 11/17/23 07:38 Not Given ONCE ONE Lisinopril 5 mg 11/17/23 09:00 11/17/23 08:11 Lisinopril 5mg Tablet PO 12/17/23 08:59 5 mg DAILY LEONARD Administration Methylprednisolone Sodium Succinate 125 mg 11/16/23 00:38 11/16/23 00:56 Methylprednisolone Sod Succ 125mg Vial IV 11/16/23 00:39 125 mg ONCE ONE Administration Methylprednisolone Sodium Succinate 40 mg 11/16/23 09:00 11/16/23 09:11 Methylprednisolone Sod Succ 40mg Vial IV 12/16/23 08:59 40 mg Q8H LEONARD Administration Metoprolol Succinate 25 mg 11/17/23 09:00 Metoprolol Succinate Xl 25mg Tablet PO 12/17/23 08:59 DAILY LEONARD Midazolam HCl 1 mg 11/17/23 07:37 Midazolam 2mg/2ml Vial IV 11/17/23 19:38 Q3MINP PRN Sedation Midazolam HCl 1 mg 11/17/23 07:37 11/17/23 12:19 Midazolam Hcl 1mg/1ml 5ml Vial IV 11/17/23 19:38 4 mg Q3MINP PRN Administration Sedation Miscellaneous 1 unit 11/16/23 10:03 11/16/23 10:15 Aerochamber/Optihaler MC 11/16/23 10:04 Not Given ONCE ONE Naloxone HCl 0.4 mg 11/17/23 07:37 Naloxone 0.4mg/Ml Vial IV 11/17/23 19:38 Q5MINP PRN Decreased Respirations Nitroglycerin 800 mcg 11/17/23 07:37 11/17/23 12:18 Nitroglycerin 800mcg/8ml Syr (Programming Equipment Operator) IA 11/17/23 11:38 800 mcg NEEDED PRN Administration Emergency Box Equipment Maintenance Superintendent Ondansetron HCl 4 mg 11/16/23 00:01 11/16/23 00:12 Ondansetron 4mg/2ml Vial IV 11/16/23 00:02 4 mg ONCE ONE Administration Phenazopyridine HCl 200 mg 11/16/23 06:01 11/16/23 06:24 Phenazopyridine 200mg Tablet PO 11/16/23 06:02 200 mg ONCE ONE Administration Prednisone 40 mg 11/16/23 09:45 11/16/23 10:15 Prednisone 20mg Tab PO 11/21/23 09:44 Not Given DAILY LEONARD Protamine Sulfate 50 mg 11/17/23 07:37 Protamine Sulfate 50mg/5ml Vial (Programming Equipment Operator) IV 11/17/23 11:38 ONCE PRN act>200 Sodium Chloride 10 ml 11/17/23 07:37 Sodium Chloride 0.9% 10ml Flush Syringe IV 12/17/23 07:36 NEEDED PRN Maintain IV Site Verapamil HCl 2.5 mg 11/17/23 07:37 11/17/23 12:18 Verapamil 2.5mg/Ml 2ml Vial IV 11/17/23 07:38 2.5 mg ONCE ONE Administration ORDERS Category Date Time Status Consult to Cardiology [CONS] Routine Cons 11/16/23 04:41 Active Consult to Pulmonology [CONS] Routine Cons 11/16/23 01:20 Active Chest XR -- portable [XR chest portable] Stat Exams 11/16/23 00:07 Completed BNP [NT Pro Brain Natriuretic Pep.] Routine Lab 11/16/23 06:08 Completed CBC w/Auto Diff [Complete Blood Count Auto Diff] Stat Lab 11/15/23 22:30 Completed CMP [Comprehensive Metabolic Panel] Stat Lab 11/15/23 22:30 Completed Comprehensive Metabolic Panel AMLAB Lab 11/16/23 06:08 Completed Diarrhea 23 Panel, PCR Stat Lab 11/15/23 22:21 Ordered Lactic Acid AMLAB Lab 11/16/23 06:08 Completed Lactic Acid Follow Up (RFLX 1) Stat Lab 11/16/23 03:50 Completed Lactic Acid Stat Lab 11/15/23 22:30 Completed Lipid Panel AMLAB Lab 11/16/23 06:08 Completed Magnesium Stat Lab 11/15/23 22:30 Completed Procalcitonin Stat Lab 11/16/23 00:01 Completed Trop I [Troponin I] Stat Lab 11/16/23 00:21 Completed Troponin I Q3H Lab 11/16/23 03:50 Completed Troponin I Q3H Lab 11/16/23 06:08 Completed UA [Urinalysis and Microscopic] Stat Lab 11/15/23 00:06 Completed Blood Culture Stat Micro 11/16/23 01:22 Results Sputum Culture & Gram Stain Stat Micro 11/16/23 07:44 Ordered Arterial Blood Gas AMLAB RT 11/16/23 05:00 Completed Lactate Arterial Routine RT 11/16/23 06:00 Ordered VBG [Venous Blood Gas] Stat RT 11/16/23 00:11 Completed CA echo doppler complete Routine Y 11/16/23 09:03 Completed ECG initial Besson Stat Y 11/16/23 04:34 Completed Medical Decision Narrative: In summary patient is a 68-year-old female who presents to the emergency department for evaluation of dysuria and diarrhea. Patient is hemodynamically stable upon arrival, afebrile. Physical exam is unremarkable and nonfocal including no abdominal pain no CVA tenderness to percussion bilaterally. Differential diagnosis includes vaginitis versus urinary tract infection versus cystitis versus pyelonephritis versus gastroenteritis versus C. difficile etc. Initial workup will be conducted with hematologic labs diarrhea panel urinalysis. Initial interventions include crystalloid bolus Toradol Tylenol. Initial workup started and and pending at the time of handoff to Dr. Cain at 2300 hrs. I was consulted by the GUERA, and we discussed the complexity of the problems being addressed. I approved the treatment and management plan for this patient?s care in the Emergency Department, thus performing a substantive portion of the medical decision making. MD Ant Tyson: While awaiting urinalysis patient ambulated to bathroom and when she came back she was severely short of breath with an oxygen saturation of 84% on baseline oxygen requirement. On my evaluation she had very diminished breath sounds bilaterally with increased work of breathing and new tachycardia. Expressed to nurse to start patient on a DuoNeb and I went to evaluate patient's blood work on the chart and on immediate return to patient bedside after this she had increased work of breathing and was poorly tolerating breathing treatment, she responded to person but could not tell me where she is or what is going on and groans occasionally but does move all extremities without difficulty and opens eyes spontaneously. Her daughter at bedside expressed that patient has expressed several times in the past that she would not want intubated and does not want resuscitated and has told her multiple times that she would like to be DNR. This was verified with nursing at bedside and daughter signed the paperwork confirmed patient is DNR/DNI. I did discuss the severity of patient's current status and concern for acute hypoxic respiratory failure possibly in the setting of a COPD exacerbation. Her VBG was acidotic with pH of 7.12 and some CO2 retention with pCO2 of 83.9, lactate did increase from initial arrival to 3.9 now. X-ray does not show a focal consolidation but does show of expanded lung graham and patient started on Rocephin and doxycycline, blood cultures obtained. I did speak with the hospitalist about admitting patient and they were agreeable with admission to ICU at present. Critical Care <KALEN Rey - Last Filed: 11/15/23 22:48> Critical Care Time Critical Care Time: No
--- NOTE | 2023-11-15 22:41 | PC.NURSE ---
Pt reports she in unable to void. She did last void at home a few hours ago . Her bladder scan is 0ml on multiple views. Provider notified of this.
[2023-11-15] MEDS: ACETAMINOPHEN 1,000MG/100ML VIAL 1000 MG IV (22:42)
[2023-11-15] MEDS: LACTATED RINGERS 1000ML 1,000 ML 999 ML IV (22:42)
[2023-11-15 22:45] LABS: Basophils # 0.1 K/mm3 (0-0.2); Basophils % 1.1 % (0.1-2.0); Eosinophils # 0.4 K/mm3 (0.0-0.4); Eosinophils % 5.9 % (0.1-12.0); Hematocrit 39.6 % (37.0-47.0); Hemoglobin 12.8 g/dL (12.2-16.2); Lymphocytes # 1.6 K/mm3 (0.7-4.5); Lymphocytes % 26.8 % (10-50); Mean Corpuscular HGB Conc 32.3 g/dL (31.8-35.4); Mean Corpuscular Hemoglobin 30.7 pg (27.0-31.2); Mean Corpuscular Volume 95.1 fl (81-99); Mean Platelet Volume 9.7 fl (7.4-10.4); Monocytes # 0.4 K/mm3 (0.1-1.0); Monocytes % 5.8 % (1.7-9.3); Neutrophils # 3.6 K/mm3 (1.8-7.8); Neutrophils % 60.3 % (37.0-80.0); Platelet Count 177 K/mm3 (142-424); Red Blood Count 4.17 M/mm3 (4.20-5.40)
[2023-11-15 22:54] LABS: Chloride 105 mmol/L (98-107); Potassium 4.1 mmoL/L (3.5-5.1); Sodium 140 mmol/L (136-145)
[2023-11-15 22:57] LABS: Alanine Aminotransferase 18 U/L (12-78); Albumin Level 3.8 g/dl (3.5-5.0); Albumin/Globulin Ratio 1.2 (1.1-1.8); Alkaline Phosphatase 146 U/L (38-126); Anion Gap 7.1 mEq/L (5-15); Aspartate Amino Transferase 28 U/L (14-36); Bilirubin,Total 0.4 mg/dl (0.2-1.3); Blood Urea Nitrogen 13 mg/dl (7-17); Calcium 9.5 mg/dl (8.4-10.2); Carbon Dioxide 32 mmol/L (22.0-30.0); Creatinine Clearance Estimated 41 mL/min (50-200); Estimated Glomerular Filt Rate 83 ml/min (>60); GFR (African American) 100 ML/MIN (>60); Globulin 3.3 g/dL (1.3-3.2); Glucose 110 mg/dl (74-100); Total Protein,Serum 7.1 g/dl (6.3-8.2)
[2023-11-15 23:00] LABS: Lactic Acid 0.6 mmol/L (0.7-2.1)
[2023-11-15 23:30] VITALS: BP 166/68; PULSE 71; O2SAT 100
[2023-11-16] VITALS (30 sets, daily range): BP systolic 117–202; BP diastolic 71–104; PULSE 74–128; RESP 14–28; TEMP 36.4–36.6; O2SAT 30–100; BMI 20.8; BMI 207068.6
[2023-11-16 00:05] LABS: Microscopic, Urine URINE MICROSCOPIC (MICROSCOPIC)
[2023-11-16 00:07] LABS: Appearance,Urine Cloudy (Clear); Bilirubin,Urine Negative (Negative); Blood, Urine 1+ (Negative); Color,Urine YELLOW (Yellow); Glucose,Urine (UA) Negative (Negative); Ketones,Urine Negative (Negative); Leukocyte Esterase,Urine Negative (Negative); Nitrate,Urine POSITIVE (Negative); Protein,Urine TRACE (Negative); Specific Gravity, Urine >= 1.030 (1.005-1.030)
--- NOTE | 2023-11-16 00:07 | XR_ITS ---
PROCEDURE INFORMATION: Exam: XR Chest Exam date and time: 11/16/2023 12:12 AM Age: 68 years old Clinical indication: Shortness of breath; Additional info: SOA, HX copd TECHNIQUE: Imaging protocol: Radiologic exam of the chest. Views: 1 view. COMPARISON: CT ANGIO CHEST 10/28/2023 1:59 AM FINDINGS: Lungs: The lungs are hyperexpanded. There is diffuse reticular interstitial prominence most significant the lung bases. This has progressed since the prior examination. Pleural spaces: Unremarkable. No pleural effusion. No pneumothorax. Heart/Mediastinum: Unremarkable. No cardiomegaly. Vasculature: Unremarkable. Bones/joints: Unremarkable. IMPRESSION: Progression of interstitial prominence particularly at the periphery of the lung bases either representing pulmonary edema or inflammation. Emphysematous changes are evident.
[2023-11-16] MEDS: IPRATROPIUM/ALBUTEROL 3 ML NEB IH ×3 (00:12→06:02)
[2023-11-16] MEDS: ONDANSETRON 4MG/2ML VIAL 4 MG IV (00:12)
--- NOTE | 2023-11-16 00:13 | PC.NURSE ---
Assisted pt to the bathroom via wheelchair to attempt to collect urine & stool sample. Pt was able to void approx 75ml. Pt became very SOA, dizzy, and had labored breathing. She also reports to be very nauseated. Pt's was hypoxic on arrival back to room 82% on 3LPM. Pt is mouth breathing and increased O2 to 4LPM NC. She still is dyspneic, moved NC to mouth, however pt was not able to tolerate this. Dr. Cain notified of pt's changes. Verbal order for Zofran 4 mg IVP, Duo-neb, CXR, and VBG.
[2023-11-16 00:17] LABS: VBG Base Excess -2.8 mmol/L (-2.4-2.3); VBG HCO3 26.5 mmol/L (23-30); VBG Oxygen Saturation 95.1 % (50-70); VBG PO2 92.6 mmol/L (28-40); VBG Total CO2 29.1 mmol/L (23-27)
--- NOTE | 2023-11-16 00:18 | PC.NURSE ---
Dr. Cain notified of critical VBG
[2023-11-16 00:20] LABS: Lactate Venous 3.9 mmol/L (0.4-2.0); VBG PCO2 83.9 mmol/L (35-51); VBG PH 7.12 mmol/L (7.31-7.41)
[2023-11-16 00:27] LABS: Bacteria,Urine Trace /lpf; RBC,Urine 50-100 #/hpf (0-3); Squamous Epithelial Cell,Urine Occasional #/hpf (0-5); WBC,Urine Occasional #/hpf (0-3)
[2023-11-16] MEDS: IPRATROPIUM/ALBUTEROL 3 ML NEB 9 ML IH (00:35)
--- NOTE | 2023-11-16 00:40 | PC.NURSE ---
Dr. Cain and I at bedside updating daughter on POC and results thus far. Daughter expressed that pt would not want to be intubated or placed on a ventilator. Reviewed DNR form with daughter and she signed it as DNR/DNI.
--- NOTE | 2023-11-16 00:45 | PC.NURSE ---
Hospitalist Riana Rosario APRN at bedside
[2023-11-16 00:50] LABS: Troponin I < 0.01 ng/ml (0.00-0.034)
--- NOTE | 2023-11-16 00:55 | ECG_ITS ---
APPROVED REPORT Exam: Resting ECG HR:123 bpm ECG Measurements Heart Rate 123 AXES [place] 150 P 78 QRSd 92 QRS 85 QT 336 T 54 QTc 409 Conclusion SINUS TACHYCARDIA LOW QRS VOLTAGE IN PRECORDIAL LEADS [QRS DEFLECTION < 1.0 mV IN CHEST LEADS] POSSIBLE RIGHT VENTRICULAR CONDUCTION DELAY [RSR (QR) IN V1/V2] NONSPECIFIC ST ELEVATION [0.05+ mV ST ELEVATION] Electronically signed by : JOSE RAUL CORTÉS, 11/16/2023 01:03:45
[2023-11-16] MEDS: MAGNESIUM SULFATE IN WATER 2 GM/50 ML PIGGYBACK IV (00:56)
[2023-11-16] MEDS: METHYLPREDNISOLONE SOD SUCC 125MG VIAL 125 MG IV (00:56)
--- NOTE | 2023-11-16 00:58 | PC.NURSE ---
Pt has been placed on Bipap, she is tolerating it well at this time. Admission packet received
--- NOTE | 2023-11-16 00:59 | PC.NURSE ---
Attempted to call report, receiving nurse is unavailable at this time. She will call back shortly.
--- NOTE | 2023-11-16 01:24 | EXP.HP ---
History of Present Illness *Admission Date: 11/16/23 *Reason for visit:: Urinary problem *History of present illness: This is a 68-year-old female with a past medical history of COPD and chronic respiratory failure on 3 L at baseline, paroxysmal A-fib on Eliquis, CAD, hypertension who presents emergency department initially for concerns for urinary tract infection. Upon arrival to the emergency department she was able to communicate and speak in full sentences and states that she had difficulty with urination with dysuria and starting stream. Went and saw her PCP today but was unable to provide a urinary sample for them so to be stepped home to be able to provide a sample and take it back the next day. She reported to the ED, of being septic previously for urinary tract infection and was concerned for this so sought treatment in the emergency department. While in the emergency department being worked up for urinary symptoms, she was ambulatory to the bathroom to provide her sample and became acutely short of breath resulting in acute respiratory decompensation She was noted to be tachypneic, tachycardic, in respiratory distress with change in mentation. On direct examination, she had very minimal lung sounds audible with auscultation. She was placed on continuous DuoNeb without much improvement. ABG was obtained with a pH of 7.12 and a CO2 of 84. Daughter at bedside states the patient is a DNR/DNI and does not wish to be placed on mechanical ventilation. There is additional concerns that patient would not tolerate BiPAP but upon admission, BiPAP was trialed and did have improvement in respiratory symptoms. On admission, blood pressure improved from systolic in the 200s to the 150s. Heart rate is improved down to the low 100s with good oxygenation and improved lung movement. She was covered with Rocephin and doxycycline for possible superimposed pneumonia. Chest x-ray obtained and shows progression of interstitial prominence particularly in the periphery of the lung bases that could represent pulmonary edema or inflammation. Given her acute respiratory failure, she is admitted to the hospital service for further evaluation management. Addendum: [id number] Patient with notable increase in troponin from 0.01 to 0.48. Likely secondary to Respiratory distress. Repeat assesment this morning and patient is now AAox3 with normal respiratory effort. Denies any chest pain now or previously, stating she feels good right now. Does follow with Dr. Gonzalez at baseline, will consult cards this am. ASA given. PFSH PFSH Disclaimer: The information contained in this section may have been updated after the patient was seen, as this information can be updated by other users. Medical History Decreased muscle strength Unsteady gait Respiratory failure with hypoxia and hypercapnia COPD exacerbation Encounter for screening for malignant neoplasm of lung Family history of asthma COPD mixed type Smoking greater than 30 pack years SOB (shortness of breath) on exertion Chronic respiratory failure with hypoxia O2 dependent Presence of arterial stent H/O Hampton's palsy Sinus tachycardia Hypertrophic obstructive cardiomyopathy (2020) Cardiac cath Vitamin D deficiency Hampton's palsy Depression PTSD (post-traumatic stress disorder) Insomnia Chronic pain COPD exacerbation Pulmonary nodule CAD (coronary artery disease) HLD (hyperlipidemia) PAD (peripheral artery disease) HTN (hypertension) Anxiety Lung nodule seen on imaging study Surgical History Appendicolith S/P peripheral artery angioplasty with stent placement Family History Other Family history of hypertension Social History Smoking Status: Current every day smoker tobacco type: cigarettes packs per day: 1 second hand exposure: No alcohol intake: never substance use type: denies use current occupational status: retired Travel in the last 8 weeks: None household members: children and none housing: house lives independently: No Review of Systems Review of Systems Review of systems:: unable to obtain Review of systems (narrative): Altered mental status Meds Home Medications and Allergies Home Medications Medication Instructions Recorded Confirmed Type apixaban 5 mg tablet (Eliquis) 2.5 mg (1/2 x 5 mg) PO BID Blood 08/18/23 11/16/23 Rx Thinner/AFIB 30 days #30 tabs albuterol sulfate 90 mcg/actuation 2 puff inhalation Q4HP PRN 10/05/23 11/16/23 Rx aerosol inhaler Shortness Of Breath #8.5 grams gabapentin 600 mg tablet 600 mg PO BID NEUROPATHY 30 days 10/05/23 11/16/23 Rx #60 tabs pantoprazole 40 mg tablet,delayed 40 mg PO DAILY GERD #90 tabs 10/05/23 11/16/23 Rx release atorvastatin 10 mg tablet 10 mg PO HS Cholesterol #100 tabs 10/18/23 11/16/23 Rx metoprolol succinate 25 mg 25 mg PO DAILY High Blood Pressure 10/20/23 11/16/23 Rx tablet,extended release 24 hr #90 tabs citalopram 10 mg tablet See Rx Instructions .Route 10/31/23 11/16/23 Rx .COMPLEX #90 tabs fluticasone fur. 100 mcg-umeclid See Rx Instructions .Route 10/31/23 11/16/23 Rx 62.5 mcg-vilant 25 mcg .COMPLEX #60 blisters inhalat.powder (Trelegy Ellipta) clonazepam 1 mg tablet (Klonopin) 1 mg PO BID Anxiety 30 days #60 11/06/23 11/16/23 Rx tabs melatonin 5 mg tablet 5 mg PO HS #90 tabs 11/06/23 11/16/23 Rx lisinopril 5 mg tablet See Rx Instructions .Route 11/07/23 11/16/23 Rx .COMPLEX #90 tabs diphenoxylate-atropine 2.5 1 tab PO TID PRN diarrhea #30 tabs 11/08/23 11/16/23 Rx mg-0.025 mg tablet (Lomotil) ondansetron 8 mg disintegrating 8 mg PO Q8H PRN nausea and 11/08/23 11/16/23 Rx tablet vomiting 5 days #30 tabs New Prescriptions to Start Prescriptions: Allergies Allergy/AdvReac Type Severity Reaction Status Date / Time levofloxacin Allergy Intermediate blisters Verified 11/15/23 15:26 in mouth, diarrhea Exam Data for Last 24 hours Vital signs and Labs for Last 24 Hours: Temp Pulse Resp BP Pulse Ox O2 Del Method O2 Flow Rate 97.8 F 118 H 25 H 155/83 H 98 BiPAP 3 11/16/23 01:00 11/16/23 01:00 11/16/23 01:00 11/16/23 01:00 11/15/23 21:55 11/16/23 01:00 11/15/23 21:55 FiO2 70 11/16/23 01:02 Laboratory Results - last 24 hr 11/15/23 00:06: Urine Color Yellow, Urine Appearance Cloudy, Urine pH 6.0, Ur Specific [place] >= 1.030, Urine Protein Trace, Urine Glucose (UA) Negative, Urine Ketones Negative, Urine Blood 1+, Urine Nitrate Positive, Urine Bilirubin Negative, Urine Urobilinogen 1.0, Ur Leukocyte Esterase Negative, Urine RBC 50-100, Urine WBC Occasional, Ur Squamous Epith Cells Occasional, Urine Bacteria Trace 11/15/23 22:30: WBC 6.0, RBC 4.17 L, Hgb 12.8, Hct 39.6, MCV 95.1, MCH 30.7, MCHC 32.3, RDW 14.0, Plt Count 177, MPV 9.7, Neut % (Auto) 60.3, Lymph % (Auto) 26.8, [place] % (Auto) 5.8, Eos % (Auto) 5.9, Baso % (Auto) 1.1, Neut # (Auto) 3.6, Lymph # (Auto) 1.6, [place] # (Auto) 0.4, Eos # (Auto) 0.4, Baso # (Auto) 0.1, Sodium 140, Potassium 4.1, Chloride 105, Carbon Dioxide 32 H, Anion Gap 7.1, BUN 13, Creatinine 0.70, Estimated Creat Clear 41, Estimated GFR 83, Est GFR ( Amer) 100, Glucose 110 H, Lactate 0.6 L, Calcium 9.5, Magnesium 2.0, Total Bilirubin 0.4, AST 28, ALT 18, Alkaline Phosphatase 146 H, Troponin I < 0.01, Total Protein 7.1, Albumin 3.8, Globulin 3.3 H, Albumin/Globulin Ratio 1.2 11/16/23 00:11: VBG pH 7.12 L, VBG pCO2 83.9 H, VBG pO2 92.6 H, VBG HCO3 26.5, VBG Total CO2 29.1 H, VBG O2 Saturation 95.1 H, VBG Base Excess -2.8 L, VBG Lactic Acid 3.9 H I & O for Last 24 hours: Intake & Output 11/13/23 11/14/23 11/15/23 11/16/23 23:59 23:59 23:59 23:59 Weight 48.988 kg Constitutional Constitutional: no acute distress *Routine HEENT Exam Head: Present normocephalic Eye: Present EOMI and PERRL ENT: Present mucous membranes moist *Routine Neck Exam Neck: Present supple; Absent lymphadenopathy *Routine Respiratory Exam Respiratory: Present accessory muscle use, decreased breath sounds, respiratory distress, wheezes and diminished air movement *Routine Cardiovascular Exam Cardiovascular: Present RRR *Routine Abdominal Exam Abdominal: Present soft and normoactive bowel sounds; Absent tenderness *Routine Rectal Exam Rectal:: deferred *Routine Genitalia Exam Genitalia:: deferred *Routine Extremities Exam Extremities: Absent cyanosis, clubbing or edema *Routine Skin Exam Skin: Present warm; Absent rash *Routine Neurological Exam Comments: Will open eyes to voice and nod her head yes and answer to her name. Will blink when asked. Assessment and Plan *Assessment and plan (1) Acute on chronic respiratory failure with hypoxia and hypercapnia: Status: Acute Category: Medical Code(s): J96.21 - Acute and chronic respiratory failure with hypoxia; J96.22 - Acute and chronic respiratory failure with hypercapnia (2) Acute exacerbation of chronic obstructive pulmonary disease: Status: Acute Category: Medical Code(s): J44.1 - Chronic obstructive pulmonary disease with (acute) exacerbation (3) Pneumonia: Status: Acute Qualifiers: Laterality: left Lung location: lower lobe of lung Pneumonia type: due to unspecified organism Qualified Code(s): J18.9 - Pneumonia, unspecified organism Category: Medical Code(s): J18.9 - Pneumonia, unspecified organism (4) Paroxysmal atrial fibrillation with rapid ventricular response: Status: Chronic Category: Medical Code(s): I48.0 - Paroxysmal atrial fibrillation (5) Hypertension: Status: Chronic Qualifiers: Hypertension type: primary hypertension Qualified Code(s): I10 - Essential (primary) hypertension Category: Medical Code(s): I10 - Essential (primary) hypertension (6) Acute cystitis: Status: Acute Category: Medical Code(s): N30.00 - Acute cystitis without hematuria Plan Admit to ICU #Acute on chronic respiratory failure with hypoxia and hypercapnia Acute respiratory failure noted while at being evaluated in the emergency department for urinary tract infection ABG with a pH of 7.12 and CO2 of 84 Placed on BiPAP with improvement in respiratory symptoms Continue BiPAP for now, currently 20/01 with a FiO2 of 75%. Oxygenating well at 93%. Work of breathing improved Continue every 4 hour DuoNebs Continue every 8 hour IV Solu-Medrol Possible element of flash pulmonary edema with interstitial prominence noted on chest x-ray during her respiratory distress episode. Patient was also severely hypertensive with systolic in the 200s at this time. Will give dose of Lasix now Continue azithromycin and Rocephin for possible superimposed pneumonia Pulmonology consult for the a.m., appreciate recommendations #Acute cystitis Nitrite positive, follow-up urine culture Continue Rocephin #Hypertension Start home medications once reconciled #Paroxysmal A-fib Continue home metoprolol Continue home Eliquis #Anxiety Continue home antianxiety medications #HLD Continue home statin medication DVT PPx on home Eliquis DNR/DNI
--- NOTE | 2023-11-16 01:28 | PC.NURSE ---
Was able to given report to [facility]
[2023-11-16] MEDS: CEFTRIAXONE 1 GM 1 GM in 0.9 % SODIUM CHLORIDE 50 ML IV ×2 (01:30→21:07)
--- NOTE | 2023-11-16 01:36 | PC.NURSE ---
Respiratory notified that pt will be ready to transport to room 219 shortly.
--- NOTE | 2023-11-16 01:46 | PC.NURSE ---
Respiratory at bedside awaiting 2nd fl nurse/staff for transport
[2023-11-16 01:51] LABS: Procalcitonin 0.039 ng/mL (0.0-2.0)
--- NOTE | 2023-11-16 02:03 | PC.NURSE ---
Patient arrived to floor via stretcher from ED at 2:00.
[2023-11-16] MEDS: DOXYCYCLINE HYCLATE 100 MG in 0.9 % SODIUM CHLORIDE 250 ML 166.667000000000002 MG IV (02:09)
[2023-11-16] MEDS: FUROSEMIDE 40MG/4ML VIAL 40 MG IV (02:11)
--- NOTE | 2023-11-16 02:34 | PC.NURSE ---
UNABLE TO COMPLETE PT'S MED REC AT THIS TIME D/T PT UNABLE TO RECALL ALL MEDS, DOSES, AND FREQUENCY. PT'S DTR STATED THAT SHE WOULD BE ABLE TO BRING IN MED BOTTLES IN AM.
[2023-11-16 03:43] LABS: Reflex Lactic Add Lactic Reflex
[2023-11-16 04:24] LABS: Troponin I 0.48 ng/ml (0.00-0.034)
--- NOTE | 2023-11-16 04:26 | PC.NURSE ---
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
--- NOTE | 2023-11-16 04:34 | ECG_ITS ---
APPROVED REPORT Exam: Resting ECG HR:107 bpm ECG Measurements Heart Rate 107 AXES MT 143 P 81 QRSd 82 QRS 80 QT 329 T 87 QTc 392 Conclusion SINUS TACHYCARDIA POSSIBLE RIGHT ATRIAL ENLARGEMENT [0.25mV P-WAVE] POSSIBLE LEFT ATRIAL ENLARGEMENT [-0.1mV P-WAVE IN V1/V2] POSSIBLE RIGHT VENTRICULAR CONDUCTION DELAY [RSR (QR) IN V1/V2] ST DEVIATION AND MODERATE T-WAVE ABNORMALITY, CONSIDER ANTEROLATERAL ISCHEMIA [-0.1+ mV T-WAVE IN V3-V6] ABNORMAL ECG UNCONFIRMED REPORT Electronically signed by : Edgard Dasilva MD 11/17/2023 16:08:35
[2023-11-16] MEDS: ASPIRIN 325MG TABLET 325 MG PO (04:49)
[2023-11-16 04:52] LABS: ABG Base Excess 1.6 mmol/L (-2.4-2.3); ABG HCO3 26.6 mmhg (22.0-26.0); ABG Oxygen Saturation 97 % (90-100); ABG PCO2 45.1 mmhg (35.0-45.0); ABG PH 7.39 mmol/L (7.35-7.45); ABG PO2 87.6 mmhg (80-100); ABG TCO2 27.9 mmhg (23-27)
[2023-11-16 04:53] LABS: Oxygen 32% FiO2 %; PEEP Bipap 18/8; Vent Rate 20
[2023-11-16 04:54] LABS: Allen's Test Acceptable; Pressure Support 10; Source Left Radial
--- NOTE | 2023-11-16 06:02 | PC.NURSE ---
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
--- NOTE | 2023-11-16 06:16 | PC.NURSE ---
HOUSE SUP GOING TO ED TO GET MED FOR NEW ORDER; WILL ADMIN ONCE RECEIVED
[2023-11-16] MEDS: PHENAZOPYRIDINE 200MG TABLET 200 MG PO (06:24)
--- NOTE | 2023-11-16 06:32 | PC.NURSE ---
MED REC COMPLETED FROM PER CLINIC PHARMACY REFILL HISTORY
[2023-11-16 06:35] LABS: Lactic Acid 1.8 mmol/L (0.7-2.1)
[2023-11-16 06:59] LABS: Chloride 104 mmol/L (98-107); Potassium 3.7 mmoL/L (3.5-5.1); Sodium 140 mmol/L (136-145)
[2023-11-16 07:01] LABS: Alanine Aminotransferase 67 U/L (12-78); Aspartate Amino Transferase 100 U/L (14-36); Blood Urea Nitrogen 13 mg/dl (7-17); Creatinine Clearance Estimated 40 mL/min (50-200); Estimated Glomerular Filt Rate 83 ml/min (>60); GFR (African American) 100 ML/MIN (>60); Troponin I 0.65 ng/ml (0.00-0.034)
[2023-11-16 07:02] LABS: Albumin Level 3.8 g/dl (3.5-5.0); Albumin/Globulin Ratio 1.2 (1.1-1.8); Alkaline Phosphatase 185 U/L (38-126); Anion Gap 10.7 mEq/L (5-15); Bilirubin,Total 0.3 mg/dl (0.2-1.3); Calcium 9.6 mg/dl (8.4-10.2); Carbon Dioxide 29 mmol/L (22.0-30.0); Chol/HDL Ratio 2.9 (1-3.5); Cholesterol 155 mg/dl (140-200); Globulin 3.2 g/dL (1.3-3.2); Glucose 166 mg/dl (74-100); HDL Cholesterol 53 mg/dl (40-60); Triglycerides 84 mg/dl (30-150); VLDL Cholesterol 17 mg/dL (0-40)
--- NOTE | 2023-11-16 07:02 | PC.NURSE ---
NOTIFIED OF CRITICAL TROP; NO NEW ORDERS
[2023-11-16 07:13] LABS: Direct LDL Cholesterol 79.89 mg/dL (100-129)
--- NOTE | 2023-11-16 07:50 | HMH.PHAINT1 ---
Pharmacy Intervention Comments: home medication list verified using list from outpatient pharmacy
--- NOTE | 2023-11-16 08:56 | P.CONS_ITS ---
History of Present Illness History of present illness: Ms. Hurst is a 68-year-old female history of COPD 4 L oxygen supplementation at baseline, atrial fibrillation hypertension dyslipidemia presented to ER with concern for urinary tract infection, found to be having hypercarbic respiratory failure and pulmonary was called for further evaluation and management. [facility] Disclaimer: The information contained in this section may have been updated after the patient was seen, as this information can be updated by other users. Medical History (Updated 11/16/23 @ 09:32 by Roxann Hopkins MD) Pneumonia Decreased muscle strength Unsteady gait Respiratory failure with hypoxia and hypercapnia COPD exacerbation Encounter for screening for malignant neoplasm of lung Family history of asthma COPD mixed type Smoking greater than 30 pack years SOB (shortness of breath) on exertion Chronic respiratory failure with hypoxia Presence of arterial stent H/O Hampton's palsy Sinus tachycardia Hypertrophic obstructive cardiomyopathy Vitamin D deficiency Hampton's palsy Depression PTSD (post-traumatic stress disorder) Insomnia Chronic pain COPD exacerbation Pulmonary nodule CAD (coronary artery disease) HLD (hyperlipidemia) PAD (peripheral artery disease) HTN (hypertension) Anxiety Lung nodule seen on imaging study Surgical History Appendicolith S/P peripheral artery angioplasty with stent placement Family History Other Family history of hypertension Social History Smoking Status: Current every day smoker tobacco type: cigarettes packs per day: 1 second hand exposure: No alcohol intake: never substance use type: denies use current occupational status: retired Travel in the last 8 weeks: None household members: children and none housing: house lives independently: No Review of Systems Constitutional Constitutional: Reports anorexia, Reports body ache(s) and Reports fatigue Eyes Eyes: Denies eye discharge, Denies dry eyes, Denies irritation and Denies itchy eyes ENT Ears, Nose, Mouth, and Throat: Denies epistaxis, Denies facial pain, Denies lip swelling and Denies throat swelling *Cardiovascular Cardiovascular: Reports dyspnea and Reports dyspnea on exertion *Respiratory Respiratory: Denies change in phlegm color, Reports chest congestion, Reports cough, Reports dyspnea, Reports dyspnea on exertion, Denies excessive phlegm production, Denies hemoptysis, Denies pain on inspiration, Denies pain with cough and Reports wheezing *Gastrointestinal Gastrointestinal: Denies abdominal pain, Denies belching and Denies cramping *Musculoskeletal Musculoskeletal: Reports back pain, Reports myalgias and Reports other (No small joint swelling or Pain) Psychiatric Psychiatric: Denies homicidal ideation and Denies suicidal ideation Endocrine Endocrine: Reports fatigue and Denies heat intolerance Hematologic/Lymphatic Hematologic/Lymphatic: Denies easy bleeding and Denies lymphadenopathy Allergic/Immunologic Allergic/Immunologic: Denies itchy eyes, Denies lip swelling, Denies throat swelling and Reports wheezing Pulmonology Exam Inpatient Vital signs and Labs for Last 24 Hours: Temp Pulse Resp BP Pulse Ox O2 Del Method O2 Flow Rate 97.9 F 108 H 26 H 152/79 H 98 Room Air 3 11/16/23 04:00 11/16/23 08:00 11/16/23 08:00 11/16/23 08:00 11/16/23 08:19 11/16/23 08:19 11/16/23 08:19 FiO2 32 11/16/23 02:19 Laboratory Results - last 24 hr 11/15/23 00:06: Urine Color Yellow, Urine Appearance Cloudy, Urine pH 6.0, Ur Specific [place] >= 1.030, Urine Protein Trace, Urine Glucose (UA) Negative, Urine Ketones Negative, Urine Blood 1+, Urine Nitrate Positive, Urine Bilirubin Negative, Urine Urobilinogen 1.0, Ur Leukocyte Esterase Negative, Urine RBC 50- 100, Urine WBC Occasional, Ur Squamous Epith Cells Occasional, Urine Bacteria Trace 11/15/23 22:30: WBC 6.0, RBC 4.17 L, Hgb 12.8, Hct 39.6, MCV 95.1, MCH 30.7, MCHC 32.3, RDW 14.0, Plt Count 177, MPV 9.7, Neut % (Auto) 60.3, Lymph % (Auto) 26.8, [place] % (Auto) 5.8, Eos % (Auto) 5.9, Baso % (Auto) 1.1, Neut # (Auto) 3.6, Lymph # (Auto) 1.6, [place] # (Auto) 0.4, Eos # (Auto) 0.4, Baso # (Auto) 0.1, Sodium 140, Potassium 4.1, Chloride 105, Carbon Dioxide 32 H, Anion Gap 7.1, BUN 13, Creatinine 0.70, Estimated Creat Clear 41, Estimated GFR 83, Est GFR ( Amer) 100, Glucose 110 H, Lactate 0.6 L, Calcium 9.5, Magnesium 2.0, Total Bilirubin 0.4, AST 28, ALT 18, Alkaline Phosphatase 146 H, Troponin I < 0.01, Total Protein 7.1, Albumin 3.8, Globulin 3.3 H, Albumin/Globulin Ratio 1.2, Procalcitonin 0.039 11/16/23 00:11: VBG pH 7.12 L, VBG pCO2 83.9 H, VBG pO2 92.6 H, VBG HCO3 26.5, V BG Total CO2 29.1 H, VBG O2 Saturation 95.1 H, VBG Base Excess -2.8 L, VBG Lactic Acid 3.9 H 11/16/23 03:50: Lactate 2.0, Troponin I 0.48 H 11/16/23 05:00: Specimen Source Left radial, O2 % 32% fio2, ABG pH 7.39, ABG pCO2 45.1 H, ABG pO2 87.6, ABG HCO3 26.6 H, ABG Total CO2 27.9 H, ABG O2 Saturation 97, ABG Base Excess 1.6, Herminio Test Acceptable, Vent Rate 20, PEEP Bipap /11/16/23 06:08: Sodium 140, Potassium 3.7, Chloride 104, Carbon Dioxide 29, Anion Gap 10.7, BUN 13, Creatinine 0.70, Estimated Creat Clear 40, Estimated GFR 83, Est GFR ( Amer) 100, Glucose 166 H D, Lactate 1.8, Calcium 9.6, Total Bilirubin 0.3, AST 100 H D, ALT 67 D, Alkaline Phosphatase 185 H, Troponin I 0.65 H, Total Protein 7.0, Albumin 3.8, Globulin 3.2, Albumin/Globulin Ratio 1.2, Triglycerides 84, Cholesterol 155, LDL Cholesterol Direct 79.89 L, VLDL Cholesterol 17, HDL Cholesterol 53, Cholesterol/HDL Ratio 2.9 I & O for Labs for Last 24 Hours: Intake & Output 11/13/23 11/14/23 11/15/23 11/16/23 23:59 23:59 23:59 23:59 Output Total 1099 / 1099 Balance -1099 / -1100 Weight 108 lb 0419741 lb 14.321 oz Constitutional: Present moderate distress Head: Present normocephalic and atraumatic ENT: Present normal exam, normal oropharynx and mucous membranes moist Neck: Present normal inspection and full ROM Respiratory: Present prolonged expiratory phase, respiratory distress, crackles, diminished air movement and able to speak in complete sentences; Absent wheezes Cardiac: Present S1/S2, Tachycardia and radial pulses present GI: Present soft and distention; Absent tenderness or guarding Rectal (female): Present deferred (female): Present deferred Skin: Present intact; Absent cyanosis or jaundice Neuro: Present alert, awake and oriented x 3 Extremities: Present normal inspection; Absent clubbing or cyanosis Psychiatric: Present normal affect and cooperative Meds Home Medications and Allergies Home Medications Medication Instructions Recorded Confirmed Type albuterol sulfate 90 mcg/actuation 2 puff inhalation Q4HP PRN 10/05/23 11/16/23 Rx aerosol inhaler Shortness Of Breath #8.5 grams atorvastatin 10 mg tablet 10 mg PO HS Cholesterol #100 tabs 10/18/23 11/16/23 Rx melatonin 5 mg tablet 5 mg PO HS #90 tabs 11/06/23 11/16/23 Rx ondansetron 8 mg disintegrating 8 mg PO Q8H PRN nausea and 11/08/23 11/16/23 Rx tablet vomiting 5 days #30 tabs apixaban 5 mg tablet (Eliquis) 2.5 mg PO BID atrial fib 11/16/23 11/16/23 History citalopram 10 mg tablet 10 mg PO DAILY 11/16/23 11/16/23 History clonazepam 1 mg tablet (Klonopin) 1 mg PO BID 11/16/23 11/16/23 History fluticasone fur. 100 mcg-umeclid 1 inh inhalation DAILY 11/16/23 11/16/23 History 62.5 mcg-vilant 25 mcg inhalat.powder (Trelegy Ellipta) gabapentin 600 mg tablet 600 mg PO BID 11/16/23 11/16/23 History lisinopril 5 mg tablet 5 mg PO DAILY 11/16/23 11/16/23 History metoprolol succinate 25 mg 25 mg PO DAILY 11/16/23 11/16/23 History tablet,extended release 24 hr pantoprazole 40 mg tablet,delayed 40 mg PO DAILY 11/16/23 11/16/23 History release New Prescriptions to Start Prescriptions: Allergies Allergy/AdvReac Type Severity Reaction Status Date / Time levofloxacin Allergy Intermediate blisters Verified 11/15/23 15:26 in mouth, diarrhea Results Laboratory Findings 11/15/23 22:30 11/16/23 06:08 ABG ABG pH 7.39 mmol/L (7.35-7.45) 11/16/23 05:00 ABG pCO2 45.1 mmhg (35.0-45.0) H 11/16/23 05:00 ABG pO2 87.6 mmhg (80-100) 11/16/23 05:00 ABG O2 Saturation 97 % (90-100) 11/16/23 05:00 Abnormal lab findings: Abnormal Labs 11/15/23 11/16/23 11/16/23 22:30 00:11 03:50 RBC 4.17 L ABG pCO2 ABG HCO3 ABG Total CO2 VBG pH 7.12 L VBG pCO2 83.9 H VBG pO2 92.6 H VBG Total CO2 29.1 H VBG O2 Saturation 95.1 H VBG Base Excess -2.8 L VBG Lactic Acid 3.9 H Carbon Dioxide 32 H Glucose 110 H Lactate 0.6 L AST Alkaline Phosphatase 146 H Troponin I 0.48 H Globulin 3.3 H LDL Cholesterol Direct 11/16/23 11/16/23 05:00 06:08 RBC ABG pCO2 45.1 H ABG HCO3 26.6 H ABG Total CO2 27.9 H VBG pH VBG pCO2 VBG pO2 VBG Total CO2 VBG O2 Saturation VBG Base Excess VBG Lactic Acid Carbon Dioxide Glucose 166 H D Lactate AST 100 H D Alkaline Phosphatase 185 H Troponin I 0.65 H Globulin LDL Cholesterol Direct 79.89 L Assessment and Plan *Assessment and plan (1) Acute on chronic respiratory failure with hypoxia and hypercapnia: Status: Acute Category: Medical Code(s): J96.21 - Acute and chronic respiratory failure with hypoxia; J96.22 - Acute and chronic respiratory failure with hypercapnia (2) Acute exacerbation of chronic obstructive pulmonary disease: Status: Acute Category: Medical Code(s): J44.1 - Chronic obstructive pulmonary disease with (acute) exacerbation (3) Pneumonia: Status: Acute Qualifiers: Laterality: left Lung location: lower lobe of lung Pneumonia type: due to unspecified organism Qualified Code(s): J18.9 - Pneumonia, unspecified organism Category: Medical Code(s): J18.9 - Pneumonia, unspecified organism Plan Ms. Hurst is a 68-year-old female history of COPD 4 L oxygen supplementation at baseline, atrial fibrillation hypertension dyslipidemia presented to ER with concern for urinary tract infection, found to be having hypercarbic respiratory failure and pulmonary was called for further evaluation and management. Chest x-ray upon admission, bilateral lower lobe predominant interstitial changes right greater than left. No effusions noted. Afebrile. Hemodynamically stable. No evidence of leukocytosis upon admission. VBG upon admission showed severe hypercarbic respiratory failure with a pH of 7.120 PE CO2 of 83.9. Subsequent blood gases showed improved hypercarbic respiratory failure. Patient admits compliance with the Trelegy inhaler. Also admits using nebulization therapies more frequently than recommended to manage her stress which is unrelated to her respiratory distress as per the patient. Auscultation no significant wheezing noted. Plan: Continue nasal cannula oxygen supplementation, currently on 1 L nasal cannula saturating 90 percent and above. Continue to wean as tolerated. Trelegy 100 inhaler DuoNebs every 6 hours on as-needed basis Wean steroids to prednisone 40 mg daily for total of 5 days Antibiotics can be weaned to levofloxacin to complete a total of 5-day course upon discharge Given involving pulmonary in this patient care. Will continue to follow.
--- NOTE | 2023-11-16 09:03 | CA_ITS ---
APPROVED REPORT EXAM: Comprehensive 2D, Doppler, and color-flow Echocardiogram Provider Relations Manager: BHAVNA Akhtar, RVS Ht: 5 ft 2 in Wt: 120lbs BSA: 1.54 BP: 152/79 mmHg Indications: COPD exacerbation,elevated troponin, CHF, SOA, CP, Smoker, HTN, HLD Echo Enhancing Agent Comments: Poor acoustics throughout patient supine/Lung impedence 2D Dimensions IVSd 0.75 cm F: 0.6-1.0 LVEF (Visual) 42.90 % PWd 0.77 cm F: 0.6 - 1.0 LA Volume 36.60 mL LVDd 4.43 cm F: 3.9 - 5.3 LA Volume Index 23.77 mL/m2 (M/F) 16-34 LVDs 3.50 cm F: 2.2 - 3.5 Left Atrium 2.75 cm F: 2.7 - 3.8 M-Mode Dimensions LVDd 4.76 cm (3.5-5.7) LVDs 3.58 cm (3.5-5.7) IVSd 0.73 cm (0.6-1.1) PWd 0.86 cm (0.6-1.1) EF (Teich) 49.10% EPSs 0.75 cm FS 24.80% EDV (Teich) 105.40 mL TAPSE 1.35 (<1.7) ESV (Teich) 53.70 mL LV Diastology E Decel Time 123 (160-240 msec) E/A Ratio 3.44 MED A' 7.50 cm/s LAT A' 6.60 cm/s Aortic Valve ANTONI Index 1.28 cm2/m2 AoV Peak Ge. 124.0 (50-130 cm/s) AO Peak GR. 6.20 mmHg AO Mean GR. 3.10 (<5 mmHg) AO VTI 22.5 (18-25 cm) ANTONI (VTI) 2.03 (2.5-4.5 cm2) Mitral Valve MV A Velocity 47.0 (40-130 cm/s) E/A Ratio 3.44 Pulmonary Valve PV Peak Velocity 117.0 (50-150 cm/s) Left Ventricle The left ventricle is normal size. The left ventricular systolic function is mildly reduced. There is increased LV wall thickness. There is mild global hypokinesis present. There is severe hypokinesis of the mid to distal septal, inferoseptal, and anteroseptal LV small and towards the LV apex Grade 3 diastolic dysfunction. LVEF is 40-45%. Right Ventricle The right ventricle is not well-visualized. Atria The left atrium size is normal. The right atrium size is normal. There is no Doppler evidence of interatrial shunt. Aortic Valve The aortic valve is mildly thickened. There is no aortic valvular stenosis. Trace aortic regurgitation. Mitral Valve The mitral valve leaflets are mildly thickened. No evidence of mitral valve stenosis. Trace mitral regurgitation. Tricuspid Valve The tricuspid valve leaflets are thin and pliable. Trace tricuspid regurgitation. There is insufficient TR jet to estimate RVSP. Pulmonic Valve The pulmonary valve is normal in structure. Trace pulmonic regurgitation. Great Vessels The aortic root is not well-visualized. IVC is normal in size and collapses >50% with inspiration. Pericardium There is no pericardial effusion. Other Information Study Quality: Fair Conclusion Mild reduction in LV systolic function (LVEF 40-45%). Severe hypokinesis of the mid to distal septal, inferoseptal, and anteroseptal LV small and towards the LV apex. No significant valvular stenosis or regurgitation. In the setting of reduced LVEF with wall motion abnormalities and patent coronary arteries, further evaluation with an outpatient cardiac MRI (cardiomyopathy protocol) is recommended to rule out alternative etiologies (eg. myocarditis, sarcoidosis, stress cardiomyopathy, etc). Electronically signed by : Alda Sifuentes MD 11/19/2023 21:11:36
[2023-11-16] MEDS: AZITHROMYCIN 500 MG in 0.9 % SODIUM CHLORIDE 250 ML 250 MG IV (09:10)
[2023-11-16] MEDS: APIXABAN 5MG TABLET 2.5 MG PO ×2 (09:11→21:07)
[2023-11-16] MEDS: METHYLPREDNISOLONE SOD SUCC 40MG VIAL 40 MG IV (09:11)
[2023-11-16] MEDS: METOPROLOL SUCCINATE XL 25MG TABLET 25 MG PO (09:17)
[2023-11-16 09:32] LABS: NT Pro Brain Natriuretic Pep. 516 pg/mL (0-125)
--- NOTE | 2023-11-16 09:40 | EXP.CARD.CON ---
History of Present Illness History of Present Illness Consult date: 11/16/23 Requesting physician: Charlotte Rosario Consult reason: chest pain Chief complaint: UTI, SOA Additional Medical History:: History of present illness: 68-year-old white female established patient of our office with history of CAD status post NSTEMI and stenting 11/2022. She had RCA stented at that time and LAD was left medical therapy. She also has paroxysmal A-fib, severe COPD on 3 L/min at baseline. Patient presented to the emergency room last night with complaints of UTI which was positive. Upon ambulating to the bathroom without oxygen she became severely short of breath with altered mental status and developed acute hypoxic respiratory failure. Daughter is bedside and states she can normally do these activities without oxygen at home without any issue. Workup revealed severe respiratory acidosis and hypercarbia. Chest x-ray revealed possible bibasilar edema. She had rising serial troponin 0.01, 0.48, 0.65. She was admitted overnight placed on DuoNebs and BiPAP and is overall feeling much better. Initial EKG showed some nonspecific anterior ST changes, repeat today shows new t-wave inversion leads V3-V5. She reports some ongoing weakness but denies chest pain. Currently only requiring 1L/min of O2 but she is very weak just leaning forward in bed. [facility] Disclaimer: The information contained in this section may have been updated after the patient was seen, as this information can be updated by other users. Medical History Pneumonia Decreased muscle strength Unsteady gait Respiratory failure with hypoxia and hypercapnia COPD exacerbation Encounter for screening for malignant neoplasm of lung Family history of asthma COPD mixed type Smoking greater than 30 pack years SOB (shortness of breath) on exertion Chronic respiratory failure with hypoxia Presence of arterial stent H/O Hampton's palsy Sinus tachycardia Hypertrophic obstructive cardiomyopathy Vitamin D deficiency Hampton's palsy Depression PTSD (post-traumatic stress disorder) Insomnia Chronic pain COPD exacerbation Pulmonary nodule CAD (coronary artery disease) HLD (hyperlipidemia) PAD (peripheral artery disease) HTN (hypertension) Anxiety Lung nodule seen on imaging study Surgical History Appendicolith S/P peripheral artery angioplasty with stent placement Family History Other Family history of hypertension Social History Smoking Status: Current every day smoker tobacco type: cigarettes packs per day: 1 second hand exposure: No alcohol intake: never substance use type: denies use current occupational status: retired Travel in the last 8 weeks: None household members: children and none housing: house lives independently: No Exam Data for Last 24 hours Vital signs and Labs for Last 24 Hours: Temp Pulse Resp BP Pulse Ox O2 Del Method O2 Flow Rate 97.9 F 108 H 26 H 152/79 H 98 Room Air 3 11/16/23 04:00 11/16/23 08:00 11/16/23 08:00 11/16/23 08:00 11/16/23 08:19 11/16/23 08:19 11/16/23 08:19 FiO2 32 11/16/23 02:19 Laboratory Results - last 24 hr 11/15/23 00:06: Urine Color Yellow, Urine Appearance Cloudy, Urine pH 6.0, Ur Specific [place] >= 1.030, Urine Protein Trace, Urine Glucose (UA) Negative, Urine Ketones Negative, Urine Blood 1+, Urine Nitrate Positive, Urine Bilirubin Negative, Urine Urobilinogen 1.0, Ur Leukocyte Esterase Negative, Urine RBC 50-100, Urine WBC Occasional, Ur Squamous Epith Cells Occasional, Urine Bacteria Trace 11/15/23 22:30: WBC 6.0, RBC 4.17 L, Hgb 12.8, Hct 39.6, MCV 95.1, MCH 30.7, MCHC 32.3, RDW 14.0, Plt Count 177, MPV 9.7, Neut % (Auto) 60.3, Lymph % (Auto) 26.8, [place] % (Auto) 5.8, Eos % (Auto) 5.9, Baso % (Auto) 1.1, Neut # (Auto) 3.6, Lymph # (Auto) 1.6, [place] # (Auto) 0.4, Eos # (Auto) 0.4, Baso # (Auto) 0.1, Sodium 140, Potassium 4.1, Chloride 105, Carbon Dioxide 32 H, Anion Gap 7.1, BUN 13, Creatinine 0.70, Estimated Creat Clear 41, Estimated GFR 83, Est GFR ( Amer) 100, Glucose 110 H, Lactate 0.6 L, Calcium 9.5, Magnesium 2.0, Total Bilirubin 0.4, AST 28, ALT 18, Alkaline Phosphatase 146 H, Troponin I < 0.01, Total Protein 7.1, Albumin 3.8, Globulin 3.3 H, Albumin/Globulin Ratio 1.2, Procalcitonin 0.039 11/16/23 00:11: VBG pH 7.12 L, VBG pCO2 83.9 H, VBG pO2 92.6 H, VBG HCO3 26.5, VBG Total CO2 29.1 H, VBG O2 Saturation 95.1 H, VBG Base Excess -2.8 L, VBG Lactic Acid 3.9 H 11/16/23 03:50: Lactate 2.0, Troponin I 0.48 H 11/16/23 05:00: Specimen Source Left radial, O2 % 32% fio2, ABG pH 7.39, ABG pCO2 45.1 H, ABG pO2 87.6, ABG HCO3 26.6 H, ABG Total CO2 27.9 H, ABG O2 Saturation 97, ABG Base Excess 1.6, Herminio Test Acceptable, Vent Rate 20, PEEP Bipap 18/8 11/16/23 06:08: Sodium 140, Potassium 3.7, Chloride 104, Carbon Dioxide 29, Anion Gap 10.7, BUN 13, Creatinine 0.70, Estimated Creat Clear 40, Estimated GFR 83, Est GFR ( Amer) 100, Glucose 166 H D, Lactate 1.8, Calcium 9.6, Total Bilirubin 0.3, AST 100 H D, ALT 67 D, Alkaline Phosphatase 185 H, Troponin I 0.65 H, NT-Pro-B Natriuret Pep 516 H, Total Protein 7.0, Albumin 3.8, Globulin 3.2, Albumin/Globulin Ratio 1.2, Triglycerides 84, Cholesterol 155, LDL Cholesterol Direct 79.89 L, VLDL Cholesterol 17, HDL Cholesterol 53, Cholesterol/HDL Ratio 2.9 I & O for Last 24 hours: Intake & Output 11/13/23 11/14/23 11/15/23 11/16/23 23:59 23:59 23:59 23:59 Output Total 1099 / 1099 Balance -1099 / -1100 Weight 108 lb [id number] lb 14.321 oz Constitutional Constitutional: no acute distress and cooperative *Routine HEENT Exam Eye: Present PERRL *Routine Respiratory Exam Respiratory: Present CTA bilaterally; Absent accessory muscle use, wheezes or crackles Comments: reduced breath sounds throughout but no crackles *Routine Cardiovascular Exam Cardiovascular: Present RRR, Normal S1 and Normal S2; Absent murmur, gallop or rubs *Routine Abdominal Exam Abdominal: Present soft; Absent tenderness *Routine Extremities Exam Extremities: Present pulses intact; Absent cyanosis or edema *Routine Skin Exam Skin: Present intact; Absent erythema or wounds *Routine Neurological Exam Neurological: Present alert and oriented X3 Routine Psychiatric Exam Psychiatric: Present cooperative Meds Home Medications and Allergies Home Medications Medication Instructions Recorded Confirmed Type albuterol sulfate 90 mcg/actuation 2 puff inhalation Q4HP PRN 10/05/23 11/16/23 Rx aerosol inhaler Shortness Of Breath #8.5 grams atorvastatin 10 mg tablet 10 mg PO HS Cholesterol #100 tabs 10/18/23 11/16/23 Rx melatonin 5 mg tablet 5 mg PO HS #90 tabs 11/06/23 11/16/23 Rx ondansetron 8 mg disintegrating 8 mg PO Q8H PRN nausea and 11/08/23 11/16/23 Rx tablet vomiting 5 days #30 tabs apixaban 5 mg tablet (Eliquis) 2.5 mg PO BID atrial fib 11/16/23 11/16/23 History citalopram 10 mg tablet 10 mg PO DAILY 11/16/23 11/16/23 History clonazepam 1 mg tablet (Klonopin) 1 mg PO BID 11/16/23 11/16/23 History fluticasone fur. 100 mcg-umeclid 1 inh inhalation DAILY 11/16/23 11/16/23 History 62.5 mcg-vilant 25 mcg inhalat.powder (Trelegy Ellipta) gabapentin 600 mg tablet 600 mg PO BID 11/16/23 11/16/23 History lisinopril 5 mg tablet 5 mg PO DAILY 11/16/23 11/16/23 History metoprolol succinate 25 mg 25 mg PO DAILY 11/16/23 11/16/23 History tablet,extended release 24 hr pantoprazole 40 mg tablet,delayed 40 mg PO DAILY 11/16/23 11/16/23 History release New Prescriptions to Start Prescriptions: Allergies Allergy/AdvReac Type Severity Reaction Status Date / Time levofloxacin Allergy Intermediate blisters Verified 11/15/23 15:26 in mouth, diarrhea Assessment and Plan *Assessment and plan (1) Non-STEMI (non-ST elevated myocardial infarction): Status: Resolved Category: Medical Code(s): I21.4 - Non-ST elevation (NSTEMI) myocardial infarction (2) Acute on chronic respiratory failure with hypoxemia: Status: Resolved Category: Medical Code(s): J96.21 - Acute and chronic respiratory failure with hypoxia (3) Acute UTI: Status: Resolved Category: Medical Code(s): N39.0 - Urinary tract infection, site not specified (4) Paroxysmal atrial fibrillation: Status: Acute Category: Medical Code(s): I48.0 - Paroxysmal atrial fibrillation Plan NSTEMI - known CAD with NSTEMI and RCA Stent 11/2022. LAD had a 60-70% lesion at that time left to med management due to normal stress test and resolution of symptoms - came here with UTI sx then had acute on chronic hypoxic resp failure, serial rise in troponin and corresponding anterior EKG changes - Plan: Pt already received Eliquis. Add ASA and Plavix with 300mg load. Resume statin, BB. Check 2D ECHO for wall motion changes. Acute Left Systolic Heart Failure - Normal EF 2022 - Came here with acute on chronic hypoxia, rising troponing, questionable congestion on CXR - Breathing better s/p Lasix 40mg IV x1 - Plan: Check ECHO, further plans pending results Paroxymal A-fib - known dx, SR here - Cont Eliquis and resume Toprol Acute on Chronic Hypoxic Respiratory Failure - known severe Emphsema on 3L/min at home, ongoing tob use - abnl ABGs here, DNR/DNI UTI - symptomatic with pos urine nitrates - nml WBC, afebrile - on antibiotics 11/15 summary: Possible HI in setting of UTI and COPD exacerbation. Further plans pending ECHO read. Consider [facility] this admission. Addendum: ECHO shows new anterior wall motion abnormality with EF down to 40-45% likely reflective of worsening LAD lesion. We discussed [facility] this admission and she is agreeable but states she feels to weak and nervous to do it today and would like to wait until tomorrow.
[2023-11-16] MEDS: clonazePAM 1MG TABLET 1 MG PO ×2 (10:18→21:07)
[2023-11-16] MEDS: SODIUM CHLORIDE 3% 15ML NEB 3 ML IH (11:10)
[2023-11-16] MEDS: FLUTICASONE/UMECLIDIN/VILANTER 100/62.5/25MCG INHALER 1 PUFF IH (11:11)
[2023-11-16] MEDS: NICOTINE 21MG/24HR PATCH 21 MG TD (11:31)
[2023-11-16] MEDS: ASPIRIN EC 81MG TABLET 81 MG PO (11:31)
[2023-11-16] MEDS: CLOPIDOGREL 300MG TABLET 300 MG PO (11:31)
--- NOTE | 2023-11-16 11:44 | HMH.OTEV ---
OT Inpatient Evaluation Rehab OT IP Evaluation Start: 11/16/23 10:59 Freq: ONCE Status: Active Protocol: Document [facility]16[facility]23 11:39 [facility] (Rec: 11/16/23 11:43 [facility] [id number]) Rehab OT IP Assessment Subjective History Pt oriented x 3 on arrival. Pt agreeable to engage in therapy evaluation. Pt admitted to [facility] on 11/16/23 due to respiratory failure. History and physical report: This is a 68-year-old female with a past medical history of COPD and chronic respiratory failure on 3 L at baseline, paroxysmal A-fib on Eliquis, CAD, hypertension who presents emergency department initially for concerns for urinary tract infection. Upon arrival to the emergency department she was able to communicate and speak in full sentences and states that she had difficulty with urination with dysuria and starting stream. Went and saw her PCP today but was unable to provide a urinary sample for them so to be stepped home to be able to provide a sample and take it back the next day. She reported to the ED, of being septic previously for urinary tract infection and was concerned for this so sought treatment in the emergency department. While in the emergency department being worked up for urinary symptoms, she was ambulatory to the bathroom to provide her sample and became acutely short of breath resulting in acute respiratory decompensation She was noted to be tachypneic , tachycardic, in respiratory distress with change in mentation. On direct examination, she had very minimal lung sounds audible with auscultation. She was placed on continuous DuoNeb without much improvement. ABG was obtained with a pH of 7. 12 and a CO2 of 84. Daughter at bedside states the patient is a DNR/DNI and does not wish to be placed on mechanical ventilation. There is additional concerns that patient would not tolerate BiPAP but upon admission, BiPAP was trialed and did have improvement in respiratory symptoms. Subjective I am just sick to my stomach. Pt reports prior to bieng in the hospital, she lived with her daugther and grandchildren . Pt's daughter worked during the day, but grandchildren were home with her and provided assistance as needed. Normally, pt claims she is independent with ADLs and functional transfers using a rolling walker. Pt does have oxygen at home. Pt dependent upon family for completion of IADLs. Objective Patient Orientation Person,Place,Birthday Right Upper Extremity Gross ROM Min Limitation <25% Left Upper Extremity Gross ROM Min Limitation <25% Shoulder ROM Limitations Muscle Weakness Elbow ROM Limitations Muscle Weakness Wrist Limitations of Range of Motion Muscle Weakness Bed Mobility bed mobility-scooting,bed mobility - supine/sit Assist Level Moderate x 2 (50% assist) Rehab OT IP prob,goals,plan Problems Date of Evaluation: 11/16/23 OT IP Problems Bed Mobility,Transfers,Balance ,Self care,Safety Rehab Potential Rehab Potential Good Equipment Needs Assistive Devices Rolling / Wheeled Walker Plan OT intervention Plan Bed Mobility,Transfers,Balance ,Self care,Safety,Therapeutic Exercise OT Plan Frequency Daily Duration LOS Discharge Goals Bed Mobility Ability Assistance x1 Sit to Stand Chair Transfer Ability Minimal x 1 (25% assist) Chair Transfer Ability Minimal x 1 (25% assist) Chair Transfer Technique Sit to/from Ambulatory Chair Transfer Assistive Devices Rolling Walker Feeding Ability Assist with Tray Set Up Lower Body Dressing Ability Moderate Assistance Upper Body Dressing Ability Minimal Assistance Bathing Ability Moderate Assistance Performing Toilet Hygiene Ability Moderate Assistance Overall Commode/Toilet Transfer Ability Minimal Assistance Commode/Toilet Transfer Technique Sit to/from Ambulatory Commode/Toilet Transfer Assistive Grab Bars Devices Oral Care Assist Minimal Assistance Decrease in Endurance Yes Discharge Plan OT Discharge Plan Pt will continue to be seen for OT services while at [facility]. Pt would benefit most from short term rehab at [facility] following discharge. Continued skilled therapy services are important in order for patient to improve strength, safety, endurance, ADL independence, and functional transfers to reach PLOF. Eval Complexity Eval Charge Codes 39316 - Moderate Complexity PHYSICIAN CERTIFICATION: I certify the specified therapy services for Johanny Hurst are required, authorized, and reviewed every 30 days.
--- NOTE | 2023-11-16 14:11 | HMH.PTEV ---
Physical Therapy Evaluation Rehab PT IP Evaluation Start: 11/16/23 11:00 Freq: ONCE Status: Active Protocol: Document 11/16/23 14:03 KAYLIN (Rec: 11/16/23 14:11 KAYLIN [email or web address]) Subjective/History History History Per H&P: This is a 68-year-old female with a past medical history of COPD and chronic respiratory failure on 3 L at baseline, paroxysmal A-fib on Eliquis, CAD, hypertension who presents emergency department initially for concerns for urinary tract infection. Upon arrival to the emergency department she was able to communicate and speak in full sentences and states that she had difficulty with urination with dysuria and starting stream. Went and saw her PCP today but was unable to provide a urinary sample for them so to be stepped home to be able to provide a sample and take it back the next day. She reported to the ED, of being septic previously for urinary tract infection and was concerned for this so sought treatment in the emergency department. While in the emergency department being worked up for urinary symptoms, she was ambulatory to the bathroom to provide her sample and became acutely short of breath resulting in acute respiratory decompensation Subjective Subjective PLOF per pt report: Lived with her daugther and grandchildren. Pt's daughter worked during the day, but grandchildren were home with her and provided assistance as needed. Normally, pt claims she is independent with ADLs and functional transfers using a rolling walker. Pt does have oxygen at home. Pt dependent upon family for completion of IADLs. New diagnosis of cancer in past 12 No months? Rehab PT IP Eval Objective Appearance Patient Behavior Appropriate,Cooperative Patient Orientation Person,Place,Situation Difficulty following instructions none Speech Pattern Clear Ambulation Patient Able to Ambulate No Balance Ability to Arise Able, uses arms to help Sitting Balance Steady, safe Transfers Bed Transfer Ability Contact Guard/Hand Hold Rehab PT IP prob,goals,plan Problems Date of Evaluation: 11/16/23 PT IP Problems Bed Mobility,Transfers,Gait, Balance,Self care,Safety Rehab Potential Rehab Potential Good Equipment Needs Assistive Devices Rolling / Wheeled Walker Plan PT Intervention Plan Bed Mobility,Transfers,Gait, Balance,Safety,Therapeutic Exercise Other Intervention Plan 1-2 times PT Plan Frequency Daily Duration LOS Discharge Goals Bed Transfer Ability Supervision/Stand by Sit to Stand Chair Transfer Ability Supervision/Stand by Ambulation Assistive Device Rolling Walker Ambulation Distance (feet) 10 Discharge Plan PT Discharge Plan Initial physical therapy evaluation performed. Pt's primary limitation to mobility is nausea. Patient presents below baseline at this time in functional mobility, transfers, and strength. Pt not safe to return home at this time d/t current level of functional mobility. PT recommending short-term rehabilitation stay upon d/c from [facility]. Pt would benefit from skilled PT while at [facility] to prevent further functional decline and maximize safety with mobility. Eval Complexity Eval Charge Codes 68593 - Low Complexity PHYSICIAN CERTIFICATION: I certify the specified therapy services for Johanny Hurst are required, authorized, and reviewed every 30 days.
[2023-11-16] MEDS: ONDANSETRON 4MG ODT 8 MG SL ×2 (15:57→23:26)
--- NOTE | 2023-11-16 17:54 | PC.NURSE ---
pt has appeared to rest in bed this shift. she was able to work with OT this afternoon but stated she felt nauseous and began to cry. pt was then placed back in bed. pt has been voiding per arielle this shift. urine is noted to be dark orange in color r/t pt being on AZO as inpt. pt lungs are diminished t/o with scattered rhonchi. bowel sounds are active in all quads. nad noted. pt is a/o x 3. pt is not always alert to situation, as to why she is in the hospital.
--- NOTE | 2023-11-16 19:29 | PC.NURSE ---
RESP CARE NOTE: ROOM AIR SAT 87% Pt placed back on 1LNC sats were 93%-95%
--- NOTE | 2023-11-16 20:54 | PC.NURSE ---
PT REMOVED NICOTINE PATCH AND THREW IT ON THE FLOOR STATING THAT IT WAS BURNING HER ARM AND SHE NO LONGER WANTED IT ON
[2023-11-16] MEDS: MELATONIN 5MG TABLET 5 MG PO (21:07)
[2023-11-16] MEDS: ATORVASTATIN 10MG TABLET 10 MG PO (21:07)
[2023-11-16] MEDS: GABAPENTIN 600MG TABLET 600 MG PO (21:07)
[2023-11-17] VITALS (18 sets, daily range): BP systolic 93–151; BP diastolic 52–86; PULSE 50–103; RESP 12–27; TEMP 36.5–36.8; O2SAT 89–97; BMI 21.1
[2023-11-17] MEDS: FLUTICASONE/UMECLIDIN/VILANTER 100/62.5/25MCG INHALER 1 PUFF IH (06:34)
[2023-11-17] MEDS: LISINOPRIL 5MG TABLET 5 MG PO (08:11)
[2023-11-17] MEDS: predniSONE 20MG TAB 40 MG PO (08:11)
[2023-11-17] MEDS: GABAPENTIN 600MG TABLET 600 MG PO ×2 (08:11→20:13)
[2023-11-17] MEDS: METOPROLOL SUCCINATE XL 25MG TABLET 25 MG PO (08:11)
[2023-11-17] MEDS: clonazePAM 1MG TABLET 1 MG PO ×2 (08:11→20:13)
[2023-11-17] MEDS: CITALOPRAM 10MG TABLET 10 MG PO (08:11)
[2023-11-17] MEDS: PANTOPRAZOLE 40MG TABLET 40 MG PO (08:11)
[2023-11-17] MEDS: AZITHROMYCIN 500 MG in 0.9 % SODIUM CHLORIDE 250 ML 250 MG IV (08:12)
--- NOTE | 2023-11-17 08:40 | EXP.CARD.PN ---
Subjective Subjective Date: 11/17/23 Time: 08:40 Interval history: No events overnight. Morning labs pending. She and daughter are agreeable to [facility]. Exam Data for Last 24 hours Vital signs and Labs for Last 24 Hours: Temp Pulse Resp BP Pulse Ox O2 Del Method O2 Flow Rate 97.8 F 82 22 132/72 94 L Nasal Cannula 1 11/17/23 08:00 11/17/23 08:00 11/17/23 08:00 11/17/23 08:00 11/17/23 08:00 11/17/23 08:00 11/17/23 08:00 FiO2 32 11/16/23 02:19 Laboratory Results - last 24 hr 11/16/23 06:08: NT-Pro-B Natriuret Pep 516 H I & O for Last 24 hours: Intake & Output 11/14/23 11/15/23 11/16/23 11/17/23 23:59 23:59 23:59 23:59 Intake Total 717 / 717 Output Total 1100 / 1100 200 / 200 Balance -383 / -383 -200 / -200 Weight 108 lb [id number] lb 14.321 oz 114 lb 11.2 oz Microbiology Reports for the Last 24 Hours: Microbiology 11/16/23 01:22 Blood Blood Culture - Preliminary NO GROWTH AFTER 24 HOURS 11/16/23 01:22 Blood Blood Culture - Preliminary NO GROWTH AFTER 24 HOURS Constitutional Constitutional: no acute distress and cooperative *Routine HEENT Exam Eye: Present PERRL *Routine Respiratory Exam Respiratory: Present CTA bilaterally; Absent accessory muscle use, wheezes or crackles *Routine Cardiovascular Exam Cardiovascular: Present RRR, Normal S1 and Normal S2; Absent murmur, gallop or rubs *Routine Abdominal Exam Abdominal: Present soft; Absent tenderness *Routine Extremities Exam Extremities: Present pulses intact; Absent cyanosis or edema *Routine Skin Exam Skin: Present intact; Absent erythema or wounds *Routine Neurological Exam Neurological: Present alert and oriented X3 Routine Psychiatric Exam Psychiatric: Present cooperative Progress Note: A&P Assessment and plan (1) Non-STEMI (non-ST elevated myocardial infarction): Status: Resolved (2) Acute on chronic respiratory failure with hypoxemia: Status: Resolved (3) Acute UTI: Status: Resolved (4) Paroxysmal atrial fibrillation: Status: Acute Assessment and Plan Assessment and Plan for All Diagnoses:: NSTEMI - known CAD with NSTEMI and RCA Stent 11/2022. LAD had a 60-70% lesion at that time left to med management due to normal stress test and resolution of symptoms - came here with UTI sx then had acute on chronic hypoxic resp failure, serial rise in troponin and corresponding anterior EKG changes with new anterior wall motion abnormality on ECHO - Plan: DAPT, Statin, BB. Pt and her daughter agreeable to [facility] today. Acute Left Systolic Heart Failure - new dx here with EF 40-45% and anterior wall motion changes - Normal EF 2022 - Came here with acute on chronic hypoxia, rising troponing, questionable congestion on CXR - Breathing better s/p Lasix 40mg IV x1 - Change Lisinopril to Entresto. Add Jardiance and Aldactone. Paroxymal A-fib - known dx, SR here - Cont Eliquis and resume Toprol Acute on Chronic Hypoxic Respiratory Failure - known severe Emphsema on 3L/min at home, ongoing tob use - abnl ABGs here, DNR/DNI UTI - symptomatic with pos urine nitrates - nml WBC, afebrile - on antibiotics Hx of Anemia - questionable GI bleed earlier in the year which resolved, has not had colonoscopy - no reent bleeding, H/H stable here - discused risks vs benefits of DAPT and OAC with pt and her daughter and they would like to proceed with both 11/16 CV Summary: CV stable, awaiting C today.
[2023-11-17 08:56] LABS: Basophils % 0.2 % (0.1-2.0); Eosinophils % 0.2 % (0.1-12.0); Hematocrit 37.5 % (37.0-47.0); Lymphocytes # 1.8 K/mm3 (0.7-4.5); Lymphocytes % 13.6 % (10-50); Mean Corpuscular HGB Conc 32.1 g/dL (31.8-35.4); Mean Corpuscular Hemoglobin 30.2 pg (27.0-31.2); Mean Corpuscular Volume 93.9 fl (81-99); Mean Platelet Volume 10.3 fl (7.4-10.4); Monocytes # 0.9 K/mm3 (0.1-1.0); Monocytes % 6.4 % (1.7-9.3); Neutrophils # 10.6 K/mm3 (1.8-7.8); Neutrophils % 79.6 % (37.0-80.0); Platelet Count 171 K/mm3 (142-424); Red Blood Count 3.99 M/mm3 (4.20-5.40); Red Cell Distribution Width 14.3 % (11.5-17.5); White Blood Count 13.4 K/mm3 (4.8-10.8)
--- NOTE | 2023-11-17 09:00 | IR_ITS ---
APPROVED REPORT Patient Location: Inpatient PROCEDURES Selective coronary angiogram INDICATION Acute non-ST elevation myocardial infarction, Coronary artery disease Informed consent was obtained prior to the procedure. COMPLICATIONS NONE Estimated Blood Loss: LESS THAN 10 ML TECHNIQUE One percent lidocaine used to anesthetize the right anterior aspect of the wrist. The right radial artery was accessed via the Seldinger technique. A 25 cm hydrophilic 6 Sami sheath was placed in the right radial artery. 2.5 mg of Verapamil, 800 mcg of nitroglycerin, 1mg Lidocaine and 5000 U Heparin were given through the arterial sheath. The papa catheter was also used to perform selective coronary angiogram. At the end of the procedure the sheath was removed good hemostasis was achieved using Traclet band, patient was transferred to the postop holding area in stable condition. ANGIOGRAPHIC RESULTS The left main artery Normal The left anterior descending artery Has proximal 30 to 40% stenoses with mid vessel 40% stenoses. A large first diagonal artery has proximal 20 and 30% stenosis The circumflex artery Nondominant widely patent The right coronary artery Large dominant the stents in the proximal mid and distal segment. The stents are widely patent with minimal concentric in-stent restenosis. Distally the vessel was wide open with multiple large distal marginal branches The FREEMAN ventriculogram reveals Not performed The left ventricular end-diastolic pressure Not measured IMPRESSION Patent coronary arteries with an unidentifiable culprit for the non-STEMI PLAN 1. Continue medical management 2. It is reasonable to continue dual antiplatelet therapy for 1 year given the non-STEMI. If patient is also on an oral anticoagulant such as a DOAC I would discontinue the aspirin and continue a DOAC with Plavix for 1 year 3. LDL less than 55 to be achieved with high intensity statin 4. Echocardiogram 5. Avoidance of tobacco products Electronically signed by : Mansoor Gonzalez MD 11/17/2023 12:21:22
[2023-11-17 09:01] LABS: Chloride 106 mmol/L (98-107); Sodium 139 mmol/L (136-145)
[2023-11-17 09:02] LABS: Potassium 4.3 mmoL/L (3.5-5.1)
[2023-11-17 09:04] LABS: Alanine Aminotransferase 42 U/L (12-78); Albumin Level 3.5 g/dl (3.5-5.0); Albumin/Globulin Ratio 1.1 (1.1-1.8); Alkaline Phosphatase 144 U/L (38-126); Anion Gap 8.3 mEq/L (5-15); Aspartate Amino Transferase 45 U/L (14-36); Bilirubin,Total 0.4 mg/dl (0.2-1.3); Blood Urea Nitrogen 19 mg/dl (7-17); Carbon Dioxide 29 mmol/L (22.0-30.0); Creatinine Clearance Estimated 44 mL/min (50-200); Estimated Glomerular Filt Rate 71 ml/min (>60); GFR (African American) 86 ML/MIN (>60); Globulin 3.2 g/dL (1.3-3.2); Total Protein,Serum 6.7 g/dl (6.3-8.2)
[2023-11-17 09:05] LABS: Calcium 9.3 mg/dl (8.4-10.2); Glucose 114 mg/dl (74-100)
--- NOTE | 2023-11-17 09:40 | EXP.PULM.PN ---
Subjective *Date: 11/17/23 *Time: 12:12 Interval history: No acute respiratory events overnight. Patient denies any new respiratory complaints. Pulmonology Exam Inpatient Vital signs and Labs for Last 24 Hours: Temp Pulse Resp BP Pulse Ox O2 Del Method O2 Flow Rate 97.8 F 82 22 132/72 94 L Nasal Cannula 1 11/17/23 08:00 11/17/23 08:00 11/17/23 08:00 11/17/23 08:00 11/17/23 08:00 11/17/23 09:00 11/17/23 09:00 FiO2 32 11/16/23 02:19 Laboratory Results - last 24 hr 11/17/23 08:46: WBC 13.4 H D, RBC 3.99 L, Hgb 12.0 L, Hct 37.5, MCV 93.9, MCH 30.2, MCHC 32.1, RDW 14.3, Plt Count 171, MPV 10.3, Neut % (Auto) 79.6, Lymph % (Auto) 13.6, [place] % (Auto) 6.4, Eos % (Auto) 0.2, Baso % (Auto) 0.2, Neut # (Auto) 10.6 H, Lymph # (Auto) 1.8, [place] # (Auto) 0.9, Eos # (Auto) 0.0, Baso # (Auto) 0.0, Sodium 139, Potassium 4.3, Chloride 106, Carbon Dioxide 29, Anion Gap 8.3, BUN 19 H D, Creatinine 0.80, Estimated Creat Clear 44, Estimated GFR 71, Est GFR ( Amer) 86, Glucose 114 H, Calcium 9.3, Total Bilirubin 0.4, AST 45 H D, ALT 42 D, Alkaline Phosphatase 144 H, Total Protein 6.7, Albumin 3.5, Globulin 3.2, Albumin/Globulin Ratio 1.1 I & O for Labs for Last 24 Hours: Intake & Output 11/14/23 11/15/23 11/16/23 11/17/23 23:59 23:59 23:59 23:59 Intake Total 717 / 717 Output Total 1100 / 1100 200 / 200 Balance -383 / -383 -200 / -200 Weight 108 lb [id number] lb 14.321 oz 114 lb 11.2 oz Microbiology Reports for the Last 24 Hours: Microbiology 11/16/23 01:22 Blood Blood Culture - Preliminary NO GROWTH AFTER 24 HOURS 11/16/23 01:22 Blood Blood Culture - Preliminary NO GROWTH AFTER 24 HOURS Assessment and Plan *Assessment and plan (1) Acute on chronic respiratory failure with hypoxia and hypercapnia: Status: Acute Category: Medical Code(s): J96.21 - Acute and chronic respiratory failure with hypoxia; J96.22 - Acute and chronic respiratory failure with hypercapnia (2) Acute exacerbation of chronic obstructive pulmonary disease: Status: Acute Category: Medical Code(s): J44.1 - Chronic obstructive pulmonary disease with (acute) exacerbation (3) Pneumonia: Status: Acute Qualifiers: Laterality: left Lung location: lower lobe of lung Pneumonia type: due to unspecified organism Qualified Code(s): J18.9 - Pneumonia, unspecified organism Category: Medical Code(s): J18.9 - Pneumonia, unspecified organism Plan Ms. Hurst is a 68-year-old female history of COPD 4 L oxygen supplementation at baseline, atrial fibrillation hypertension dyslipidemia presented to ER with concern for urinary tract infection, found to be having hypercarbic respiratory failure and pulmonary was called for further evaluation and management. Chest x-ray upon admission, bilateral lower lobe predominant interstitial changes right greater than left. No effusions noted. Afebrile. Hemodynamically stable. No evidence of leukocytosis upon admission. VBG upon admission showed severe hypercarbic respiratory failure with a pH of 7.120 PE CO2 of 83.9. Subsequent blood gases showed improved hypercarbic respiratory failure. Patient admits compliance with the Trelegy inhaler. Also admits using nebulization therapies more frequently than recommended to manage her stress which is unrelated to her respiratory distress as per the patient. On initial examination, auscultation no significant wheezing noted. Interval update: No acute respiratory events overnight. Off BiPAP. Continue to use a nasal cannula oxygen supplementation. Afebrile. Hemodynamically stable. Worsening leukocytosis. Plan: Continue nasal cannula oxygen supplementation, currently on 1 L nasal cannula saturating 90 percent and above. Saturations dropped less than 89% when weaned to room air. Trelegy 100 inhaler DuoNebs every 6 hours on as-needed basis Prednisone 40 mg daily for total of 5 days Antibiotics can be weaned to levofloxacin to complete a total of 5-day course upon discharge Thank you involving pulmonary in this patient care. Will follow in pulmonary clinic in 2 weeks post discharge.
[2023-11-17] MEDS: EMPAGLIFLOZIN 10MG TABLET 10 MG PO (09:53)
[2023-11-17] MEDS: SPIRONOLACTONE 25MG TABLET 25 MG PO (09:53)
--- NOTE | 2023-11-17 11:16 | SW/DCPLANNER ---
Addendum entered by Michaelle Schaffer RN 11/21/23 11:02: Patient has been approved and can go to [facility]. Will let family, patient, and MD know. and phone number for report is [phone] Addendum entered by Michaelle Schaffer RN 11/21/23 10:01: Le from [facility] called [facility] this morning and they said the medical technologist was reviewing and to call back this afternoon to see if authorization is approved. Addendum entered by Michaelle Schaffer RN 11/20/23 14:04: Continue to await precert. Spoke with patient and daughter as patient was not wanting to go to SNF. She is agreeable at this time. CHRISTINE Perla Addendum entered by Nallely Lopes 11/17/23 12:52: [facility] able to accept this patient and will start precert. I have called and updated patient's daughter (Kellen). Kellen stated that she just arrived at [facility] and will speak w/ patient regarding discharge plans. Original Note: I spoke w/ this patient regarding plans once medically stable for discharge. PT/OT evaluated patient and recommended SNF level of care. Patient's only response during my conversation was I am not sure right now . Patient was agreeable for me to call and speak w/ her daughter about placement. Daughter is agreeable to placement and explained they are NOT interested in [facility] due to being there in the past and bad experience. [facility], [facility] and [place] either do no have beds or does not take patient's insurance. Daughter is agreeable for patient information to be faxed to [facility] at this time. Daughter stated that she will be onsite today to speak w/ patient regarding plans. Daughter will call me when coming to [facility] and I will speak w/ daughter and patient together. Patient is scheduled for a heart cath today. Discharge date is unknown at this time.
--- NOTE | 2023-11-17 11:34 | PC.NURSE ---
pt transported off of unit by Alicia Villarreal RN at 1135
[2023-11-17] MEDS: diphenhydrAMINE 50MG/ML VIAL 50 MG IV (12:17)
[2023-11-17] MEDS: NITROGLYCERIN 800MCG/8ML SYR (CATH LAB) 800 MCG IA (12:18)
[2023-11-17] MEDS: HEPARIN 1,000 UNITS/ML 10ML VIAL (CATH LAB) 10000 UNIT IV (12:18)
[2023-11-17] MEDS: VERAPAMIL 2.5MG/ML 2ML VIAL 2.5 MG IV (12:18)
[2023-11-17] MEDS: LIDOCAINE 1% 10ML MDV 20 ML IJ (12:18)
[2023-11-17] MEDS: MIDAZOLAM HCL 1MG/1ML 5ML VIAL 1 MG IV (12:19)
[2023-11-17] MEDS: 0.9 % SODIUM CHLORIDE 500 ML 25 ML IV (12:19)
[2023-11-17] MEDS: FENTANYL 100MCG/2ML VIAL 50 MCG IV (12:19)
[2023-11-17] MEDS: HEPARIN 1,000 UNITS/500ML NS (CATH LAB) 3000 UNIT IV (12:19)
[2023-11-17] MEDS: IOPAMIDOL-370 (76%);100ML BOTTLE 50 ML IV (13:35)
[2023-11-17] MEDS: HYDROCODONE/APAP 5/325 MG TABLET 2 TAB PO (14:02)
--- NOTE | 2023-11-17 16:05 | P.PN_ITS ---
Subjective *Date: 11/17/23 *Time: 16:05 Interval history: seen at bedside, lying in bed comfotably, holding conversations, appears weak Exam Data for Last 24 hours Vital signs and Labs for Last 24 Hours: Temp Pulse Resp BP Pulse Ox O2 Del Method O2 Flow Rate 97.8 F 53 L 18 96/58 L 97 Nasal Cannula 2 11/17/23 08:00 11/17/23 15:33 11/17/23 15:33 11/17/23 15:33 11/17/23 15:33 11/17/23 15:33 11/17/23 15:33 FiO2 32 11/16/23 02:19 Laboratory Results - last 24 hr 11/17/23 08:46: WBC 13.4 H D, RBC 3.99 L, Hgb 12.0 L, Hct 37.5, MCV 93.9, MCH 30.2, MCHC 32.1, RDW 14.3, Plt Count 171, MPV 10.3, Neut % (Auto) 79.6, Lymph % (Auto) 13.6, [place] % (Auto) 6.4, Eos % (Auto) 0.2, Baso % (Auto) 0.2, Neut # (Auto) 10.6 H, Lymph # (Auto) 1.8, [place] # (Auto) 0.9, Eos # (Auto) 0.0, Baso # (Auto) 0.0, Sodium 139, Potassium 4.3, Chloride 106, Carbon Dioxide 29, Anion Gap 8.3, BUN 19 H D, Creatinine 0.80, Estimated Creat Clear 44, Estimated GFR 71, Est GFR ( Amer) 86, Glucose 114 H, Calcium 9.3, Total Bilirubin 0.4, AST 45 H D, ALT 42 D, Alkaline Phosphatase 144 H, Total Protein 6.7, Albumin 3.5, Globulin 3.2, Albumin/Globulin Ratio 1.1 I & O for Last 24 hours: Intake & Output 11/14/23 11/15/23 11/16/23 11/17/23 23:59 23:59 23:59 23:59 Intake Total 717 / 717 250 / 250 Output Total 1100 / 1100 200 / 200 Balance -383 / -383 50 / 50 Weight 48.988 kg 617954 kg 52 kg Microbiology Reports for the Last 24 Hours: Microbiology 11/16/23 01:22 Blood Blood Culture - Preliminary NO GROWTH AFTER 24 HOURS 11/16/23 01:22 Blood Blood Culture - Preliminary NO GROWTH AFTER 24 HOURS Constitutional Constitutional: no acute distress *Routine HEENT Exam Head: Present normocephalic Eye: Present EOMI and PERRL ENT: Present mucous membranes moist *Routine Neck Exam Neck: Present supple; Absent lymphadenopathy *Routine Respiratory Exam Respiratory: Present decreased breath sounds *Routine Cardiovascular Exam Cardiovascular: Present RRR *Routine Abdominal Exam Abdominal: Present soft and normoactive bowel sounds; Absent tenderness *Routine Extremities Exam Extremities: Absent cyanosis, clubbing or edema *Routine Skin Exam Skin: Present warm; Absent rash *Routine Neurological Exam Neurological: Present alert and oriented X3 Assessment and Plan *Assessment and plan (1) Acute on chronic respiratory failure with hypoxia and hypercapnia: Status: Acute Category: Medical Code(s): J96.21 - Acute and chronic respiratory failure with hypoxia; J96.22 - Acute and chronic respiratory failure with hypercapnia (2) Acute exacerbation of chronic obstructive pulmonary disease: Status: Acute Category: Medical Code(s): J44.1 - Chronic obstructive pulmonary disease with (acute) exacerbation (3) Pneumonia: Status: Acute Qualifiers: Laterality: left Lung location: lower lobe of lung Pneumonia type: due to unspecified organism Qualified Code(s): J18.9 - Pneumonia, unspecified organism Category: Medical Code(s): J18.9 - Pneumonia, unspecified organism (4) Paroxysmal atrial fibrillation with rapid ventricular response: Status: Chronic Category: Medical Code(s): I48.0 - Paroxysmal atrial fibrillation (5) Hypertension: Status: Chronic Qualifiers: Hypertension type: primary hypertension Qualified Code(s): I10 - Essential (primary) hypertension Category: Medical Code(s): I10 - Essential (primary) hypertension (6) Acute cystitis: Status: Acute Category: Medical Code(s): N30.00 - Acute cystitis without hematuria Plan Admit to ICU #Acute on chronic respiratory failure with hypoxia and hypercapnia Acute respiratory failure noted while at being evaluated in the emergency department for urinary tract infection Continue every 4 hour DuoNebs, on prednisone Possible element of flash pulmonary edema with interstitial prominence noted on chest x-ray during her respiratory distress episode. Patient was also severely hypertensive with systolic in the 200s at this time. Will give dose of Lasix now on azithromycin and rocephin Echo positive for WMA, plan for cardiac cath today pulmonary following, case discussed #Acute cystitis Nitrite positive, follow-up urine culture Continue Rocephin #Hypertension Start home medications once reconciled #Paroxysmal A-fib Continue home metoprolol Continue home Eliquis #Anxiety Continue home antianxiety medications #HLD Continue home statin medication DVT PPx on home Eliquis DNR/DNI continue IV abx, monitor post cardiac cath
--- NOTE | 2023-11-17 16:25 | PC.NURSE ---
Patient is currently sleeping. She went to the laboratory secretary today, where no blockages were discovered and no stents placed. Patient was accessed through the right radial artery. All air was removed from the radial band, and cleansed with chlorohexadine. Tegaderm was then placed on top. Patient complained of pain in the right wrist after returning from the laboratory secretary, but the pain may be related to a previous break of the right wrist. Patient received PRN dose of lortab per AUG. Patient's pain was relieved with this intervention. Radial pulses are regular and equal and no bleeding is noted on the dressing. Post vitals are being collected until 193. Patient has tolerated procedure well. Daughter is active in patient care.
[2023-11-17] MEDS: APIXABAN 5MG TABLET 2.5 MG PO (20:12)
[2023-11-17] MEDS: CEFTRIAXONE 1 GM 1 GM in 0.9 % SODIUM CHLORIDE 50 ML IV (20:13)
[2023-11-17] MEDS: MELATONIN 5MG TABLET 5 MG PO (20:13)
[2023-11-17] MEDS: ATORVASTATIN 10MG TABLET 10 MG PO (20:13)
--- NOTE | 2023-11-17 23:55 | PC.NURSE ---
RESP CARE NOTE:ROOM AIR SAT PT 97% ON 2L NC DROPPED TO 87% ON RA PT PLACED ON 1L NC AT 93%
[2023-11-18] VITALS (9 sets, daily range): BP systolic 110–169; BP diastolic 60–80; PULSE 50–87; RESP 17–25; TEMP 36.3–36.7; O2SAT 91–97; BMI 20.2
[2023-11-18] MEDS: HYDROCODONE/APAP 5/325 MG TABLET 2 TAB PO ×2 (05:59→12:46)
--- NOTE | 2023-11-18 06:05 | PC.NURSE ---
Patient is currently on 1L of O2. Patient has called out once this shift complaining of pain in the right shoulder. [place] was provided via MAR. Patient has had no other complaints at this time, call light within reach.
[2023-11-18] MEDS: FLUTICASONE/UMECLIDIN/VILANTER 100/62.5/25MCG INHALER 1 PUFF IH (06:54)
[2023-11-18] MEDS: AZITHROMYCIN 500 MG in 0.9 % SODIUM CHLORIDE 250 ML 250 MG IV (08:40)
[2023-11-18] MEDS: ASPIRIN EC 81MG TABLET 81 MG PO (08:41)
[2023-11-18] MEDS: CITALOPRAM 10MG TABLET 10 MG PO (08:41)
[2023-11-18] MEDS: clonazePAM 1MG TABLET 1 MG PO ×2 (08:41→21:24)
[2023-11-18] MEDS: METOPROLOL SUCCINATE XL 25MG TABLET 25 MG PO (08:41)
[2023-11-18] MEDS: predniSONE 20MG TAB 40 MG PO (08:41)
[2023-11-18] MEDS: PANTOPRAZOLE 40MG TABLET 40 MG PO (08:41)
[2023-11-18] MEDS: GABAPENTIN 600MG TABLET 600 MG PO ×2 (08:41→21:24)
[2023-11-18] MEDS: SACUBITRIL/VALSARTAN 24-26MG TABLET 1 EACH PO ×2 (08:41→21:24)
[2023-11-18] MEDS: SPIRONOLACTONE 25MG TABLET 25 MG PO (08:41)
[2023-11-18] MEDS: APIXABAN 5MG TABLET 2.5 MG PO ×2 (08:41→21:23)
[2023-11-18] MEDS: EMPAGLIFLOZIN 10MG TABLET 10 MG PO (08:41)
--- NOTE | 2023-11-18 10:30 | XR_ITS ---
PROCEDURE INFORMATION: Exam: XR Right Shoulder Exam date and time: 11/18/2023 10:35 AM Age: 68 years old Clinical indication: Pain; Shoulder; Right; Additional info: Shoulder pain TECHNIQUE: Imaging protocol: Radiologic exam of the right shoulder. Views: 2 or more views. COMPARISON: CR [id number] 12/15/2016 8:35 AM FINDINGS: Bones/joints: Degenerative changes in the acromioclavicular joint and glenohumeral joint. There is no evidence of acute fracture.There is no evidence of malalignment or dislocation. Narrowing of the subacromial space consistent with impingement syndrome. Soft tissues: Normal. IMPRESSION: There is no evidence of acute fracture.There is no evidence of malalignment or dislocation.
--- NOTE | 2023-11-18 12:14 | EXP.PN ---
Subjective *Date: 11/18/23 *Time: 12:14 Interval history: seen at bedside, lying in bed comfotably, holding conversations, appears weak, no acute evets overnight Exam Data for Last 24 hours Vital signs and Labs for Last 24 Hours: Temp Pulse Resp BP Pulse Ox O2 Del Method O2 Flow Rate 97.5 F L 80 25 H 169/72 H 91 L Nasal Cannula 1 11/18/23 07:32 11/18/23 08:00 11/18/23 07:32 11/18/23 07:32 11/18/23 07:32 11/18/23 08:40 11/18/23 08:40 FiO2 32 11/16/23 02:19 I & O for Last 24 hours: Intake & Output 11/15/23 11/16/23 11/17/23 11/18/23 23:59 23:59 23:59 23:59 Intake Total 717 / 717 250 / 250 660 / 660 Output Total 1100 / 1100 200 / 200 350 / 350 Balance -383 / -383 50 / 50 310 / 310 Weight 48.988 kg 762197 kg 52 kg 49.895 kg Microbiology Reports for the Last 24 Hours: Microbiology 11/16/23 01:22 Blood Blood Culture - Preliminary NO GROWTH AFTER 48 HOURS 11/16/23 01:22 Blood Blood Culture - Preliminary NO GROWTH AFTER 48 HOURS Constitutional Constitutional: no acute distress *Routine HEENT Exam Head: Present normocephalic Eye: Present EOMI and PERRL ENT: Present mucous membranes moist *Routine Neck Exam Neck: Present supple; Absent lymphadenopathy *Routine Respiratory Exam Respiratory: Present decreased breath sounds *Routine Cardiovascular Exam Cardiovascular: Present RRR *Routine Abdominal Exam Abdominal: Present soft and normoactive bowel sounds; Absent tenderness *Routine Extremities Exam Extremities: Absent cyanosis, clubbing or edema *Routine Skin Exam Skin: Present warm; Absent rash *Routine Neurological Exam Neurological: Present alert and oriented X3 Assessment and Plan *Assessment and plan (1) Acute on chronic respiratory failure with hypoxia and hypercapnia: Status: Acute Category: Medical Code(s): J96.21 - Acute and chronic respiratory failure with hypoxia; J96.22 - Acute and chronic respiratory failure with hypercapnia (2) Acute exacerbation of chronic obstructive pulmonary disease: Status: Acute Category: Medical Code(s): J44.1 - Chronic obstructive pulmonary disease with (acute) exacerbation (3) Pneumonia: Status: Acute Qualifiers: Laterality: left Lung location: lower lobe of lung Pneumonia type: due to unspecified organism Qualified Code(s): J18.9 - Pneumonia, unspecified organism Category: Medical Code(s): J18.9 - Pneumonia, unspecified organism (4) Paroxysmal atrial fibrillation with rapid ventricular response: Status: Chronic Category: Medical Code(s): I48.0 - Paroxysmal atrial fibrillation (5) Hypertension: Status: Chronic Qualifiers: Hypertension type: primary hypertension Qualified Code(s): I10 - Essential (primary) hypertension Category: Medical Code(s): I10 - Essential (primary) hypertension (6) Acute cystitis: Status: Acute Category: Medical Code(s): N30.00 - Acute cystitis without hematuria Plan #Acute on chronic respiratory failure with hypoxia and hypercapnia Acute respiratory failure noted while at being evaluated in the emergency department for urinary tract infection Continue every 4 hour DuoNebs, on prednisone Possible element of flash pulmonary edema with interstitial prominence noted on chest x-ray during her respiratory distress episode. Patient was also severely hypertensive with systolic in the 200s at this time. Will give dose of Lasix now on azithromycin and rocephin Echo positive for WMA, s/p cardiac cath - no stenting performed, cardiology recommends DC ASA and start plavix, continue eliquis pulmonary following, case discussed #Acute cystitis Nitrite positive, follow-up urine culture Continue Rocephin #Hypertension Start home medications once reconciled #Paroxysmal A-fib Continue home metoprolol Continue home Eliquis #Anxiety Continue home antianxiety medications #HLD Continue home statin medication DVT PPx on home Eliquis DNR/DNI continue IV abx, awaiting placement pending precert
[2023-11-18] MEDS: CEFTRIAXONE 1 GM 1 GM in 0.9 % SODIUM CHLORIDE 50 ML IV (21:23)
[2023-11-18] MEDS: ATORVASTATIN 10MG TABLET 10 MG PO (21:23)
[2023-11-18] MEDS: MELATONIN 5MG TABLET 5 MG PO (21:24)
[2023-11-19] VITALS (8 sets, daily range): BP systolic 113–156; BP diastolic 62–78; PULSE 60–80; RESP 18–22; TEMP 36.4–37; O2SAT 89–94; BMI 20.8
--- NOTE | 2023-11-19 05:51 | PC.NURSE ---
Patient has tolerated room air throughout shift. midline dressing is dry and intact. Colostomy bag has red tinged fluids. Pt has called out once complaining of nausea. Zofran was provided per AUG and patient verbalizes relief of symptoms. Has ambulated to the bathroom and through the halls multiple times this shift.
[2023-11-19] MEDS: HYDROCODONE/APAP 5/325 MG TABLET 2 TAB PO ×2 (06:12→13:48)
--- NOTE | 2023-11-19 06:15 | PC.NURSE ---
Patient has tolerated 1L of O2 throughout the shift. Has called out once complaining of right arm pain related to a previous injury. [place] was provided per AUG. Pt has had no other complaints. call light within reach.
[2023-11-19] MEDS: FLUTICASONE/UMECLIDIN/VILANTER 100/62.5/25MCG INHALER 1 PUFF IH (06:36)
[2023-11-19] MEDS: CLOPIDOGREL 75MG TAB 75 MG PO (08:10)
[2023-11-19] MEDS: clonazePAM 1MG TABLET 1 MG PO ×2 (08:10→20:39)
[2023-11-19] MEDS: SACUBITRIL/VALSARTAN 24-26MG TABLET 1 EACH PO ×2 (08:10→20:39)
[2023-11-19] MEDS: CITALOPRAM 10MG TABLET 10 MG PO (08:10)
[2023-11-19] MEDS: EMPAGLIFLOZIN 10MG TABLET 10 MG PO (08:10)
[2023-11-19] MEDS: predniSONE 20MG TAB 40 MG PO (08:11)
[2023-11-19] MEDS: APIXABAN 5MG TABLET 2.5 MG PO ×2 (08:11→20:39)
[2023-11-19] MEDS: METOPROLOL SUCCINATE XL 25MG TABLET 25 MG PO (08:11)
[2023-11-19] MEDS: SPIRONOLACTONE 25MG TABLET 25 MG PO (08:11)
[2023-11-19] MEDS: PANTOPRAZOLE 40MG TABLET 40 MG PO (08:11)
[2023-11-19] MEDS: GABAPENTIN 600MG TABLET 600 MG PO ×2 (08:11→20:39)
[2023-11-19] MEDS: AZITHROMYCIN 500 MG in 0.9 % SODIUM CHLORIDE 250 ML 250 MG IV (08:18)
--- NOTE | 2023-11-19 08:29 | P.PN_ITS ---
Subjective *Date: 11/19/23 *Time: 08:29 Medical Exam Vital signs and Labs for Last 24 Hours: Vital Signs Temp Pulse Pulse Resp BP Pulse Ox O2 Del Method 11/19/23 06:57 Nasal Cannula 11/19/23 06:37 92 L Nasal Cannula 11/19/23 05:00 Room Air 11/19/23 04:00 60 11/19/23 04:00 97.6 F 64 21 156/78 H 94 L Room Air 11/19/23 03:00 Nasal Cannula 11/19/23 01:00 Nasal Cannula 11/19/23 00:00 80 11/19/23 00:00 97.7 F 69 20 152/73 H 92 L Room Air 11/18/23 23:00 Nasal Cannula 11/18/23 21:00 Nasal Cannula 11/18/23 20:21 94 L Room Air 11/18/23 20:00 91 L Nasal Cannula 11/18/23 20:00 70 11/18/23 20:00 97.7 F 68 25 H 129/70 91 L Room Air 11/18/23 18:41 Nasal Cannula 11/18/23 18:32 Nasal Cannula 11/18/23 17:05 Nasal Cannula 11/18/23 16:00 97.4 F L 59 L 20 128/76 92 L Room Air 11/18/23 15:08 Nasal Cannula 11/18/23 13:16 Nasal Cannula 11/18/23 12:00 60 11/18/23 12:00 98.1 F 72 24 140/69 92 L Nasal Cannula 11/18/23 11:00 Room Air 11/18/23 08:40 Nasal Cannula 11/18/23 08:40 Nasal Cannula O2 Flow Rate 11/19/23 06:57 1 11/19/23 06:37 1 11/19/23 05:00 11/19/23 04:00 11/19/23 04:00 11/19/23 03:00 1 11/19/23 01:00 1 11/19/23 00:00 11/19/23 00:00 11/18/23 23:00 1 11/18/23 21:00 1 11/18/23 20:21 11/18/23 20:00 1 11/18/23 20:00 11/18/23 20:00 11/18/23 18:41 1 11/18/23 18:32 1 06/15/24 17:05 1 11/18/23 16:00 11/18/23 15:08 1 11/18/23 13:16 1 11/18/23 12:00 11/18/23 12:00 11/18/23 11:00 11/18/23 08:40 1 11/18/23 08:40 1 Intake and Output 11/18/23 11/19/23 11/19/23 23:59 07:59 15:59 Intake Total 270 / 1350 200 / 400 200 / 400 Output Total 550 / 1400 1600 / 1600 Balance -280 / -50 -1400 / -1200 200 / -1200 Intake: Intake, Oral Amount 270 / 1000 100 / 300 200 / 300 Intake, Total IV Amount 100 / 100 Ceftriaxone 1 gm 1 gm In 0.9 % 100 / 100 Sodium Chloride 50 ml @ 100 mls /hr IV Q24H [facility] Rx#:[id number] Output: Output, Urine Amount 550 / 1400 1600 / 1600 Other: Number of Voids 0 Number of Unmeasured Voids 0 Weight 51.426 kg Patient Weight 11/19/23 23:59 Weight 51.426 kg I & O for Labs for Last 24 Hours: Intake & Output 11/16/23 11/17/23 11/18/23 11/19/23 23:59 23:59 23:59 23:59 Intake Total 717 / 717 250 / 250 1200 / 1350 400 / 400 Output Total 1100 / 1100 200 / 200 900 / 1400 1600 / 1600 Balance -383 / -383 50 / 50 300 / -50 -1200 / -1200 Weight [id number] kg 52 kg 49.895 kg 51.426 kg The patient's infection will respond to the chosen ABx?: Yes Is the patient receiving the right drug, dose, and route?: Yes Could a more targeted ABx be ordered?: No (BLOOD CX SHOWS NG AT 48 HOURS)
--- NOTE | 2023-11-19 12:52 | EXP.PN ---
Subjective *Date: 11/19/23 *Time: 12:52 Interval history: seen at bedside, appears comfortable in bed, appears weak Exam Data for Last 24 hours Vital signs and Labs for Last 24 Hours: Temp Pulse Resp BP Pulse Ox O2 Del Method O2 Flow Rate 97.6 F 69 18 113/66 92 L Nasal Cannula 1 11/19/23 12:00 11/19/23 12:00 11/19/23 12:00 11/19/23 12:00 11/19/23 12:00 11/19/23 12:00 11/19/23 12:00 FiO2 32 11/16/23 02:19 I & O for Last 24 hours: Intake & Output 11/16/23 11/17/23 11/18/23 11/19/23 23:59 23:59 23:59 23:59 Intake Total 717 / 717 250 / 250 1200 / 1350 520 / 520 Output Total 1100 / 1100 200 / 200 900 / 1400 1600 / 1600 Balance -383 / -383 50 / 50 300 / -50 -1080 / -1080 Weight 436651 kg 52 kg 49.895 kg 51.426 kg Constitutional Constitutional: no acute distress *Routine HEENT Exam Head: Present normocephalic Eye: Present EOMI and PERRL ENT: Present mucous membranes moist *Routine Neck Exam Neck: Present supple; Absent lymphadenopathy *Routine Respiratory Exam Respiratory: Present decreased breath sounds *Routine Cardiovascular Exam Cardiovascular: Present RRR *Routine Abdominal Exam Abdominal: Present soft and normoactive bowel sounds; Absent tenderness *Routine Extremities Exam Extremities: Absent cyanosis, clubbing or edema *Routine Skin Exam Skin: Present warm; Absent rash *Routine Neurological Exam Neurological: Present alert and oriented X3 Assessment and Plan *Assessment and plan (1) Acute on chronic respiratory failure with hypoxia and hypercapnia: Status: Acute Category: Medical Code(s): J96.21 - Acute and chronic respiratory failure with hypoxia; J96.22 - Acute and chronic respiratory failure with hypercapnia (2) Acute exacerbation of chronic obstructive pulmonary disease: Status: Acute Category: Medical Code(s): J44.1 - Chronic obstructive pulmonary disease with (acute) exacerbation (3) Pneumonia: Status: Acute Qualifiers: Laterality: left Lung location: lower lobe of lung Pneumonia type: due to unspecified organism Qualified Code(s): J18.9 - Pneumonia, unspecified organism Category: Medical Code(s): J18.9 - Pneumonia, unspecified organism (4) Paroxysmal atrial fibrillation with rapid ventricular response: Status: Chronic Category: Medical Code(s): I48.0 - Paroxysmal atrial fibrillation (5) Hypertension: Status: Chronic Qualifiers: Hypertension type: primary hypertension Qualified Code(s): I10 - Essential (primary) hypertension Category: Medical Code(s): I10 - Essential (primary) hypertension (6) Acute cystitis: Status: Acute Category: Medical Code(s): N30.00 - Acute cystitis without hematuria Plan #Acute on chronic respiratory failure with hypoxia and hypercapnia Acute respiratory failure noted while at being evaluated in the emergency department for urinary tract infection Continue every 4 hour DuoNebs, on prednisone Possible element of flash pulmonary edema with interstitial prominence noted on chest x-ray during her respiratory distress episode. Patient was also severely hypertensive with systolic in the 200s at this time. Will give dose of Lasix now on azithromycin and rocephin Echo positive for WMA, s/p cardiac cath - no stenting performed, cardiology recommends DC ASA and start plavix, continue eliquis pulmonary following, case discussed #Acute cystitis Nitrite positive, follow-up urine culture Continue Rocephin #Hypertension Start home medications once reconciled #Paroxysmal A-fib Continue home metoprolol Continue home Eliquis #Anxiety Continue home antianxiety medications #HLD Continue home statin medication DVT PPx on home Eliquis DNR/DNI continue IV abx, awaiting placement pending precert
[2023-11-19] MEDS: POLYETHYLENE GLYCOL 3350 17 GM PACKET PO (16:04)
--- NOTE | 2023-11-19 16:35 | PC.NURSE ---
Pt currently resting on 1L NC. c/o right shoulder and elbow pain. [place] provided per AUG. pt c/o stomach cramps. Miralax provided per AUG. pt understood teaching about Miralax. vitals are stable, no fever, call light within reach.
[2023-11-19] MEDS: MELATONIN 5MG TABLET 5 MG PO (20:39)
[2023-11-19] MEDS: CEFTRIAXONE 1 GM 1 GM in 0.9 % SODIUM CHLORIDE 50 ML IV (20:39)
[2023-11-19] MEDS: ATORVASTATIN 10MG TABLET 10 MG PO (20:39)
[2023-11-19] MEDS: ONDANSETRON 4MG ODT 8 MG SL (20:39)
[2023-11-20] VITALS (7 sets, daily range): BP systolic 116–147; BP diastolic 58–71; PULSE 57–83; RESP 16–22; TEMP 36.4–36.6; O2SAT 90–94; BMI 20.3
[2023-11-20] MEDS: HYDROCODONE/APAP 5/325 MG TABLET 2 TAB PO ×2 (03:45→15:44)
[2023-11-20] MEDS: FLUTICASONE/UMECLIDIN/VILANTER 100/62.5/25MCG INHALER 1 PUFF IH (05:21)
--- NOTE | 2023-11-20 05:33 | PC.NURSE ---
Pt is alert and oriented. Complained of nausea, treated per mar. Uses bedside commode with assistance. Remains on 1L NC, O2 sat >90%. Rhonchi noted bilateral lungs. Call light in reach.
[2023-11-20 06:29] LABS: Chloride 105 mmol/L (98-107); Potassium 3.7 mmoL/L (3.5-5.1); Sodium 137 mmol/L (136-145)
[2023-11-20 06:30] LABS: Basophils % 0.4 % (0.1-2.0); Eosinophils # 0.1 K/mm3 (0.0-0.4); Eosinophils % 1.2 % (0.1-12.0); Hematocrit 40.9 % (37.0-47.0); Hemoglobin 13.3 g/dL (12.2-16.2); Lymphocytes # 2.4 K/mm3 (0.7-4.5); Lymphocytes % 27.1 % (10-50); Mean Corpuscular HGB Conc 32.5 g/dL (31.8-35.4); Mean Corpuscular Hemoglobin 30.8 pg (27.0-31.2); Mean Corpuscular Volume 94.7 fl (81-99); Mean Platelet Volume 10.2 fl (7.4-10.4); Monocytes # 0.5 K/mm3 (0.1-1.0); Monocytes % 6.2 % (1.7-9.3); Neutrophils # 5.7 K/mm3 (1.8-7.8); Neutrophils % 65.2 % (37.0-80.0); Platelet Count 180 K/mm3 (142-424); Red Blood Count 4.32 M/mm3 (4.20-5.40); White Blood Count 8.8 K/mm3 (4.8-10.8)
[2023-11-20 06:32] LABS: Anion Gap 7.7 mEq/L (5-15); Blood Urea Nitrogen 16 mg/dl (7-17); Carbon Dioxide 28 mmol/L (22.0-30.0); Creatinine Clearance Estimated 42 mL/min (50-200); Estimated Glomerular Filt Rate 83 ml/min (>60); GFR (African American) 100 ML/MIN (>60); Glucose 111 mg/dl (74-100)
[2023-11-20] MEDS: APIXABAN 5MG TABLET 2.5 MG PO ×2 (08:19→20:59)
[2023-11-20] MEDS: predniSONE 20MG TAB 40 MG PO (08:19)
[2023-11-20] MEDS: AZITHROMYCIN 250MG TABLET 500 MG PO (08:19)
[2023-11-20] MEDS: SPIRONOLACTONE 25MG TABLET 25 MG PO (08:19)
[2023-11-20] MEDS: CLOPIDOGREL 75MG TAB 75 MG PO (08:20)
[2023-11-20] MEDS: SACUBITRIL/VALSARTAN 24-26MG TABLET 1 EACH PO ×2 (08:20→20:59)
[2023-11-20] MEDS: CITALOPRAM 10MG TABLET 10 MG PO (08:20)
[2023-11-20] MEDS: GABAPENTIN 600MG TABLET 600 MG PO ×2 (08:20→20:59)
[2023-11-20] MEDS: PANTOPRAZOLE 40MG TABLET 40 MG PO (08:20)
[2023-11-20] MEDS: EMPAGLIFLOZIN 10MG TABLET 10 MG PO (08:20)
[2023-11-20] MEDS: METOPROLOL SUCCINATE XL 25MG TABLET 25 MG PO (08:21)
[2023-11-20] MEDS: clonazePAM 1MG TABLET 1 MG PO ×2 (08:26→20:59)
--- NOTE | 2023-11-20 08:36 | EXP.CARD.PN ---
Subjective Subjective Date: 11/20/23 Time: 08:36 Principal diagnosis: Resp Distress, NSTEMI Interval history: 68 yo WF in bed in NAD. No chest pain overnight. States she is not going to rehab...last time I went I got COVID, then the flu and then some bacterial infection...I have family at home that can take care of me. Exam Data for Last 24 hours Vital signs and Labs for Last 24 Hours: Temp Pulse Resp BP Pulse Ox O2 Del Method O2 Flow Rate 97.7 F 76 22 127/62 90 L Nasal Cannula 1 11/20/23 08:00 11/20/23 08:00 11/20/23 08:00 11/20/23 08:00 11/20/23 08:00 11/20/23 08:00 11/20/23 08:00 FiO2 32 11/16/23 02:19 Laboratory Results - last 24 hr 11/20/23 05:19: WBC 8.8 D, RBC 4.32, Hgb 13.3, Hct 40.9, MCV 94.7, MCH 30.8, MCHC 32.5, RDW 14.0, Plt Count 180, MPV 10.2, Neut % (Auto) 65.2, Lymph % (Auto) 27.1, [place] % (Auto) 6.2, Eos % (Auto) 1.2, Baso % (Auto) 0.4, Neut # (Auto) 5.7, Lymph # (Auto) 2.4, [place] # (Auto) 0.5, Eos # (Auto) 0.1, Baso # (Auto) 0.0, Sodium 137, Potassium 3.7, Chloride 105, Carbon Dioxide 28, Anion Gap 7.7, BUN 16, Creatinine 0.70, Estimated Creat Clear 42, Estimated GFR 83, Est GFR ( Amer) 100, Glucose 111 H, Calcium 9.0 I & O for Last 24 hours: Intake & Output 11/17/23 11/18/23 11/19/23 11/20/23 11:59 11:59 11:59 11:59 Intake Total 727 / 727 660 / 660 1060 / 1060 650 / 650 Output Total 200 / 200 350 / 350 2150 / 2150 350 / 350 Balance 527 / 527 310 / 310 -1090 / -1090 300 / 300 Weight 114 lb 11.2 oz 110 lb 113 lb 6 oz 110 lb 8 oz Microbiology Reports for the Last 24 Hours: Microbiology 11/16/23 01:22 Blood Blood Culture - Preliminary NO GROWTH AFTER 4 DAYS 11/16/23 01:22 Blood Blood Culture - Preliminary NO GROWTH AFTER 4 DAYS *Routine Respiratory Exam Respiratory: Present diminished air movement; Absent wheezes *Routine Cardiovascular Exam Cardiovascular: Present RRR Progress Note: A&P Assessment and plan (1) Acute on chronic respiratory failure with hypoxia and hypercapnia: Status: Acute (2) Acute exacerbation of chronic obstructive pulmonary disease: Status: Acute (3) Pneumonia: Status: Acute (4) Paroxysmal atrial fibrillation with rapid ventricular response: Status: Chronic (5) Hypertension: Status: Chronic (6) Acute cystitis: Status: Acute (7) Non-STEMI (non-ST elevated myocardial infarction): Status: Resolved Assessment and Plan Assessment and Plan for All Diagnoses:: NSTEMI, type 2 secondary to respiratory failure -[facility] 11/16 showed patent coronary arteries without etiology for NSTEMI. Continue plavix with eliquis. - known CAD with NSTEMI and RCA Stent 11/2022. LAD had a 60-70% lesion at that time left to med management due to normal stress test and resolution of symptoms - came here with UTI sx then had acute on chronic hypoxic resp failure, serial rise in troponin and corresponding anterior EKG changes with new anterior wall motion abnormality on ECHO - Plan: Plavix, Statin, BB. Acute Left Systolic Heart Failure - new dx here with EF 40-45% and anterior wall motion changes - Normal EF 2022 - Came here with acute on chronic hypoxia, rising troponing, questionable congestion on CXR - Breathing better s/p Lasix 40mg IV x1 - Change Lisinopril to Entresto. - Add Jardiance and Aldactone. Paroxymal A-fib - known dx, SR here - Cont Eliquis and Toprol Acute on Chronic Hypoxic Respiratory Failure - known severe Emphsema on 3L/min at home, ongoing tob use - abnl ABGs here, DNR/DNI - Pulmonary following UTI - symptomatic with pos urine nitrates - nml WBC, afebrile - on antibiotics Hx of Anemia - questionable GI bleed earlier in the year which resolved, has not had colonoscopy - no recent bleeding, H/H stable here - discussed risks vs benefits of DAPT and OAC with pt and her daughter and they would like to proceed with both Clinically stable for discharge from cardiology standpoint. Meds: Plavix 75 mg daily Eliquis 2.5 mg twice daily Metoprolol succinate XL 25 mg daily Entresto 24/26 mg twice daily Jardiance 10 mg daily Aldactone 25 mg daily Lipitor 10 mg daily Follow-up in our office in 1 week.
--- NOTE | 2023-11-20 10:17 | EXP.PULM.PN ---
Subjective *Date: 11/20/23 *Time: 10:17 Pulmonology Exam Inpatient Vital signs and Labs for Last 24 Hours: Temp Pulse Resp BP Pulse Ox O2 Del Method O2 Flow Rate 97.7 F 76 22 127/62 90 L Nasal Cannula 1 11/20/23 08:00 11/20/23 08:00 11/20/23 08:00 11/20/23 08:00 11/20/23 08:00 11/20/23 08:00 11/20/23 08:00 FiO2 32 11/16/23 02:19 Laboratory Results - last 24 hr 11/20/23 05:19: WBC 8.8 D, RBC 4.32, Hgb 13.3, Hct 40.9, MCV 94.7, MCH 30.8, MCHC 32.5, RDW 14.0, Plt Count 180, MPV 10.2, Neut % (Auto) 65.2, Lymph % (Auto) 27.1, [place] % (Auto) 6.2, Eos % (Auto) 1.2, Baso % (Auto) 0.4, Neut # (Auto) 5.7, Lymph # (Auto) 2.4, [place] # (Auto) 0.5, Eos # (Auto) 0.1, Baso # (Auto) 0.0, Sodium 137, Potassium 3.7, Chloride 105, Carbon Dioxide 28, Anion Gap 7.7, BUN 16, Creatinine 0.70, Estimated Creat Clear 42, Estimated GFR 83, Est GFR ( Amer) 100, Glucose 111 H, Calcium 9.0 I & O for Labs for Last 24 Hours: Intake & Output 11/17/23 11/18/23 11/19/23 11/20/23 23:59 23:59 23:59 23:59 Intake Total 250 / 250 1200 / 1350 1120 / 1170 320 / 320 Output Total 200 / 200 900 / 1400 1850 / 1850 100 / 100 Balance 50 / 50 300 / -50 -730 / -680 220 / 220 Weight 114 lb 10.246 oz 110 lb 113 lb 6 oz 110 lb 8 oz Microbiology Reports for the Last 24 Hours: Microbiology 11/16/23 01:22 Blood Blood Culture - Preliminary NO GROWTH AFTER 4 DAYS 11/16/23 01:22 Blood Blood Culture - Preliminary NO GROWTH AFTER 4 DAYS Assessment and Plan *Assessment and plan (1) Acute on chronic respiratory failure with hypoxia and hypercapnia: Status: Acute Category: Medical Code(s): J96.21 - Acute and chronic respiratory failure with hypoxia; J96.22 - Acute and chronic respiratory failure with hypercapnia (2) Acute exacerbation of chronic obstructive pulmonary disease: Status: Acute Category: Medical Code(s): J44.1 - Chronic obstructive pulmonary disease with (acute) exacerbation (3) Pneumonia: Status: Acute Qualifiers: Laterality: left Lung location: lower lobe of lung Pneumonia type: due to unspecified organism Qualified Code(s): J18.9 - Pneumonia, unspecified organism Category: Medical Code(s): J18.9 - Pneumonia, unspecified organism Plan Ms. Hurst is a 68-year-old female history of COPD 4 L oxygen supplementation at baseline, atrial fibrillation hypertension dyslipidemia presented to ER with concern for urinary tract infection, found to be having hypercarbic respiratory failure and pulmonary was called for further evaluation and management. Chest x-ray upon admission, bilateral lower lobe predominant interstitial changes right greater than left. No effusions noted. Afebrile. Hemodynamically stable. No evidence of leukocytosis upon admission. VBG upon admission showed severe hypercarbic respiratory failure with a pH of 7.120 PE CO2 of 83.9. Subsequent blood gases showed improved hypercarbic respiratory failure. Patient admits compliance with the Trelegy inhaler. Also admits using nebulization therapies more frequently than recommended to manage her stress which is unrelated to her respiratory distress as per the patient. On initial examination, auscultation no significant wheezing noted. Interval update: No acute respiratory events overnight. Off BiPAP. Continue to use a nasal cannula oxygen supplementation. Afebrile. Hemodynamically stable. Worsening leukocytosis. Plan: Continue nasal cannula oxygen supplementation, currently on 1 L nasal cannula saturating 90 percent and above. Saturations dropped less than 89% when weaned to room air. Trelegy 100 inhaler DuoNebs every 6 hours on as-needed basis Prednisone 40 mg daily for total of 5 days Antibiotics can be weaned to levofloxacin to complete a total of 5-day course upon discharge Thank you involving pulmonary in this patient care. Will follow in pulmonary clinic in 2 weeks post discharge.
--- NOTE | 2023-11-20 10:56 | EXP.PULM.PN ---
Subjective *Date: 11/20/23 *Time: 10:56 Interval history: No acute respiratory events over the weekend. Patient denies any new respiratory complaints. Pulmonology Exam Inpatient Vital signs and Labs for Last 24 Hours: Temp Pulse Resp BP Pulse Ox O2 Del Method O2 Flow Rate 97.7 F 76 22 127/62 90 L Nasal Cannula 1 11/20/23 08:00 11/20/23 08:00 11/20/23 08:00 11/20/23 08:00 11/20/23 08:00 11/20/23 08:00 11/20/23 08:00 FiO2 32 11/16/23 02:19 Laboratory Results - last 24 hr 11/20/23 05:19: WBC 8.8 D, RBC 4.32, Hgb 13.3, Hct 40.9, MCV 94.7, MCH 30.8, MCHC 32.5, RDW 14.0, Plt Count 180, MPV 10.2, Neut % (Auto) 65.2, Lymph % (Auto) 27.1, [place] % (Auto) 6.2, Eos % (Auto) 1.2, Baso % (Auto) 0.4, Neut # (Auto) 5.7, Lymph # (Auto) 2.4, [place] # (Auto) 0.5, Eos # (Auto) 0.1, Baso # (Auto) 0.0, Sodium 137, Potassium 3.7, Chloride 105, Carbon Dioxide 28, Anion Gap 7.7, BUN 16, Creatinine 0.70, Estimated Creat Clear 42, Estimated GFR 83, Est GFR ( Amer) 100, Glucose 111 H, Calcium 9.0 Temp Pulse Resp BP Pulse Ox O2 Del Method O2 Flow Rate 97.9 F 108 H 26 H 152/79 H 98 Room Air 3 11/16/23 04:00 11/16/23 08:00 11/16/23 08:00 11/16/23 08:00 11/16/23 08:19 11/16/23 08:19 11/16/23 08:19 FiO2 32 11/16/23 02:19 Laboratory Results - last 24 hr 11/15/23 00:06: Urine Color Yellow, Urine Appearance Cloudy, Urine pH 6.0, Ur Specific [place] >= 1.030, Urine Protein Trace, Urine Glucose (UA) Negative, Urine Ketones Negative, Urine Blood 1+, Urine Nitrate Positive, Urine Bilirubin Negative, Urine Urobilinogen 1.0, Ur Leukocyte Esterase Negative, Urine RBC 50-100, Urine WBC Occasional, Ur Squamous Epith Cells Occasional, Urine Bacteria Trace 11/15/23 22:30: WBC 6.0, RBC 4.17 L, Hgb 12.8, Hct 39.6, MCV 95.1, MCH 30.7, MCHC 32.3, RDW 14.0, Plt Count 177, MPV 9.7, Neut % (Auto) 60.3, Lymph % (Auto) 26.8, [place] % (Auto) 5.8, Eos % (Auto) 5.9, Baso % (Auto) 1.1, Neut # (Auto) 3.6, Lymph # (Auto) 1.6, [place] # (Auto) 0.4, Eos # (Auto) 0.4, Baso # (Auto) 0.1, Sodium 140, Potassium 4.1, Chloride 105, Carbon Dioxide 32 H, Anion Gap 7.1, BUN 13, Creatinine 0.70, Estimated Creat Clear 41, Estimated GFR 83, Est GFR ( Amer) 100, Glucose 110 H, Lactate 0.6 L, Calcium 9.5, Magnesium 2.0, Total Bilirubin 0.4, AST 28, ALT 18, Alkaline Phosphatase 146 H, Troponin I < 0.01, Total Protein 7.1, Albumin 3.8, Globulin 3.3 H, Albumin/Globulin Ratio 1.2, Procalcitonin 0.039 11/16/23 00:11: VBG pH 7.12 L, VBG pCO2 83.9 H, VBG pO2 92.6 H, VBG HCO3 26.5, VBG Total CO2 29.1 H, VBG O2 Saturation 95.1 H, VBG Base Excess -2.8 L, VBG Lactic Acid 3.9 H 11/16/23 03:50: Lactate 2.0, Troponin I 0.48 H 11/16/23 05:00: Specimen Source Left radial, O2 % 32% fio2, ABG pH 7.39, ABG pCO2 45.1 H, ABG pO2 87.6, ABG HCO3 26.6 H, ABG Total CO2 27.9 H, ABG O2 Saturation 97, ABG Base Excess 1.6, Herminio Test Acceptable, Vent Rate 20, PEEP Bipap 18/8 11/16/23 06:08: Sodium 140, Potassium 3.7, Chloride 104, Carbon Dioxide 29, Anion Gap 10.7, BUN 13, Creatinine 0.70, Estimated Creat Clear 40, Estimated GFR 83, Est GFR ( Amer) 100, Glucose 166 H D, Lactate 1.8, Calcium 9.6, Total Bilirubin 0.3, AST 100 H D, ALT 67 D, Alkaline Phosphatase 185 H, Troponin I 0.65 H, Total Protein 7.0, Albumin 3.8, Globulin 3.2, Albumin/Globulin Ratio 1.2, Triglycerides 84, Cholesterol 155, LDL Cholesterol Direct 79.89 L, VLDL Cholesterol 17, HDL Cholesterol 53, Cholesterol/HDL Ratio 2.9 I & O for Labs for Last 24 Hours: Intake & Output 11/17/23 11/18/23 11/19/23 11/20/23 23:59 23:59 23:59 23:59 Intake Total 250 / 250 1200 / 1350 1120 / 1170 320 / 320 Output Total 200 / 200 900 / 1400 1850 / 1850 100 / 100 Balance 50 / 50 300 / -50 -730 / -680 220 / 220 Weight 114 lb 10.246 oz 110 lb 113 lb 6 oz 110 lb 8 oz Intake & Output 11/13/23 11/14/23 11/15/23 11/16/23 23:59 23:59 23:59 23:59 Output Total 1100 / 1100 Balance -1100 / -1100 Weight 108 lb [id number] lb 14.321 oz Microbiology Reports for the Last 24 Hours: Microbiology 11/16/23 01:22 Blood Blood Culture - Preliminary NO GROWTH AFTER 4 DAYS 11/16/23 01:22 Blood Blood Culture - Preliminary NO GROWTH AFTER 4 DAYS Constitutional: Present moderate distress Head: Present normocephalic and atraumatic ENT: Present normal exam, normal oropharynx and mucous membranes moist Neck: Present normal inspection and full ROM Respiratory: Present able to speak in complete sentences; Absent prolonged expiratory phase, respiratory distress or wheezes Cardiac: Present S1/S2, Tachycardia and radial pulses present GI: Present soft and distention; Absent tenderness or guarding Rectal (female): Present deferred (female): Present deferred Skin: Present intact; Absent cyanosis or jaundice Neuro: Present alert, awake and oriented x 3 Extremities: Present normal inspection; Absent clubbing or cyanosis Psychiatric: Present normal affect and cooperative Assessment and Plan *Assessment and plan (1) Acute on chronic respiratory failure with hypoxia and hypercapnia: Status: Acute Category: Medical Code(s): J96.21 - Acute and chronic respiratory failure with hypoxia; J96.22 - Acute and chronic respiratory failure with hypercapnia (2) Acute exacerbation of chronic obstructive pulmonary disease: Status: Acute Category: Medical Code(s): J44.1 - Chronic obstructive pulmonary disease with (acute) exacerbation (3) Pneumonia: Status: Acute Qualifiers: Laterality: left Lung location: lower lobe of lung Pneumonia type: due to unspecified organism Qualified Code(s): J18.9 - Pneumonia, unspecified organism Category: Medical Code(s): J18.9 - Pneumonia, unspecified organism Plan Ms. Hurst is a 68-year-old female history of COPD 4 L oxygen supplementation at baseline, atrial fibrillation hypertension dyslipidemia presented to ER with concern for urinary tract infection, found to be having hypercarbic respiratory failure and pulmonary was called for further evaluation and management. Chest x-ray upon admission, bilateral lower lobe predominant interstitial changes right greater than left. No effusions noted. Afebrile. Hemodynamically stable. No evidence of leukocytosis upon admission. VBG upon admission showed severe hypercarbic respiratory failure with a pH of 7.120 PE CO2 of 83.9. Subsequent blood gases showed improved hypercarbic respiratory failure. Patient admits compliance with the Trelegy inhaler. Also admits using nebulization therapies more frequently than recommended to manage her stress which is unrelated to her respiratory distress as per the patient. On initial examination, auscultation no significant wheezing noted. Interval update: No acute respiratory vents over the weekend. Continued to remain on nasal cannula 0 to 1 L. Stable oxygen. Has been off BiPAP for the last 72 hours. Currently awaiting placement. Plan: Continue nasal cannula oxygen supplementation, currently on 1 L nasal cannula saturating 90 percent and above. Saturations dropped less than 89% when weaned to room air. Trelegy 100 inhaler DuoNebs every 6 hours on as-needed basis Complete prednisone 40 mg daily for total of 5 days Antibiotics can be weaned to levofloxacin to complete a total of 5-day course upon discharge Thank you involving pulmonary in this patient care. Will follow in pulmonary clinic in 2 weeks post discharge.
--- NOTE | 2023-11-20 16:27 | P.PN_ITS ---
Subjective *Date: 11/20/23 *Time: 16:27 Interval history: seen at bedside, patient denied CP, SOB, N/V Exam Data for Last 24 hours Vital signs and Labs for Last 24 Hours: Temp Pulse Resp BP Pulse Ox O2 Del Method O2 Flow Rate 97.9 F 83 22 129/68 90 L Nasal Cannula 2 11/20/23 12:00 11/20/23 12:00 11/20/23 12:00 11/20/23 12:00 11/20/23 12:00 11/20/23 15:00 11/20/23 15:00 FiO2 32 11/16/23 02:19 Laboratory Results - last 24 hr 11/20/23 05:19: WBC 8.8 D, RBC 4.32, Hgb 13.3, Hct 40.9, MCV 94.7, MCH 30.8, MCHC 32.5, RDW 14.0, Plt Count 180, MPV 10.2, Neut % (Auto) 65.2, Lymph % (Auto) 27.1, [place] % (Auto) 6.2, Eos % (Auto) 1.2, Baso % (Auto) 0.4, Neut # (Auto) 5.7, Lymph # (Auto) 2.4, [place] # (Auto) 0.5, Eos # (Auto) 0.1, Baso # (Auto) 0.0, Sodium 137, Potassium 3.7, Chloride 105, Carbon Dioxide 28, Anion Gap 7.7, BUN 16, Creatinine 0.70, Estimated Creat Clear 42, Estimated GFR 83, Est GFR ( Amer) 100, Glucose 111 H, Calcium 9.0 I & O for Last 24 hours: Intake & Output 11/17/23 11/18/23 11/19/23 11/20/23 23:59 23:59 23:59 23:59 Intake Total 250 / 250 1200 / 1350 1120 / 1170 800 / 800 Output Total 200 / 200 900 / 1400 1850 / 1850 300 / 300 Balance 50 / 50 300 / -50 -730 / -680 500 / 500 Weight 52 kg 49.895 kg 51.426 kg 50.122 kg Microbiology Reports for the Last 24 Hours: Microbiology 11/16/23 01:22 Blood Blood Culture - Preliminary NO GROWTH AFTER 4 DAYS 11/16/23 01:22 Blood Blood Culture - Preliminary NO GROWTH AFTER 4 DAYS Constitutional Constitutional: no acute distress *Routine HEENT Exam Head: Present normocephalic Eye: Present EOMI and PERRL ENT: Present mucous membranes moist *Routine Neck Exam Neck: Present supple; Absent lymphadenopathy *Routine Respiratory Exam Respiratory: Present decreased breath sounds *Routine Cardiovascular Exam Cardiovascular: Present RRR *Routine Abdominal Exam Abdominal: Present soft and normoactive bowel sounds; Absent tenderness *Routine Extremities Exam Extremities: Absent cyanosis, clubbing or edema *Routine Skin Exam Skin: Present warm; Absent rash *Routine Neurological Exam Neurological: Present alert and oriented X3 Assessment and Plan *Assessment and plan (1) Acute on chronic respiratory failure with hypoxia and hypercapnia: Status: Acute Category: Medical Code(s): J96.21 - Acute and chronic respiratory failure with hypoxia; J96.22 - Acute and chronic respiratory failure with hypercapnia (2) Acute exacerbation of chronic obstructive pulmonary disease: Status: Acute Category: Medical Code(s): J44.1 - Chronic obstructive pulmonary disease with (acute) exacerbation (3) Pneumonia: Status: Acute Qualifiers: Laterality: left Lung location: lower lobe of lung Pneumonia type: due to unspecified organism Qualified Code(s): J18.9 - Pneumonia, unspecified organism Category: Medical Code(s): J18.9 - Pneumonia, unspecified organism (4) Paroxysmal atrial fibrillation with rapid ventricular response: Status: Chronic Category: Medical Code(s): I48.0 - Paroxysmal atrial fibrillation (5) Hypertension: Status: Chronic Qualifiers: Hypertension type: primary hypertension Qualified Code(s): I10 - Essential (primary) hypertension Category: Medical Code(s): I10 - Essential (primary) hypertension (6) Acute cystitis: Status: Acute Category: Medical Code(s): N30.00 - Acute cystitis without hematuria Plan #Acute on chronic respiratory failure with hypoxia and hypercapnia - improved Acute respiratory failure noted while at being evaluated in the emergency department for urinary tract infection Continue every 4 hour DuoNebs, on prednisone Possible element of flash pulmonary edema with interstitial prominence noted on chest x-ray during her respiratory distress episode. on azithromycin and rocephin, DC on oral levofloxacin to complete 5 days course Echo positive for WMA, s/p cardiac cath - no stenting performed, cardiology recommends DC ASA and start plavix, continue eliquis pulmonary following, case discussed #Acute cystitis Nitrite positive, follow-up urine culture Continue Rocephin #Hypertension Start home medications once reconciled #Paroxysmal A-fib Continue home metoprolol Continue home Eliquis #Anxiety Continue home antianxiety medications #HLD Continue home statin medication DVT PPx on home Eliquis DNR/DNI continue IV abx, awaiting placement pending precert, stable for DC
[2023-11-20] MEDS: ONDANSETRON 4MG ODT 8 MG SL (19:55)
[2023-11-20] MEDS: MELATONIN 5MG TABLET 5 MG PO (20:59)
[2023-11-20] MEDS: CEFTRIAXONE 1 GM 1 GM in 0.9 % SODIUM CHLORIDE 50 ML IV (21:00)
[2023-11-20] MEDS: ATORVASTATIN 20MG TABLET 10 MG PO (21:15)
[2023-11-21] VITALS: BP 120/54; PULSE 55; PULSE 74; RESP 16; TEMP 36.7; O2SAT 94
[2023-11-21 02:52] LABS: Adenovirus F 40/41, stool Not Detected (NotDetected); Astrovirus Not Detected (NotDetected); Campylobacter Not Detected (NotDetected); Clostridium Difficile A/B, PCR Not Detected (NotDetected); Cryptosporidium Not Detected (NotDetected); Cyclospora Cayetanesis Not Detected (NotDetected); Entamoeba histolytica Not Detected (NotDetected); Enteroaggregative E coli Not Detected (NotDetected); Enteropathogenic E coli Not Detected (NotDetected); Enterotoxigenic E coli Not Detected (NotDetected); Giardia lamblia Not Detected (NotDetected); Norovirus Not Detected (NotDetected); Plesimonas Shigalloides, PCR Not Detected (NotDetected); Rotavirus A Not Detected (NotDetected); Salmonella, PCR Not Detected (NotDetected); Sapovirus Not Detected (NotDetected); Shiga-like toxin E coli Not Detected (NotDetected); Shigella Enterovasive E coli Not Detected (NotDetected); Vibrio Cholerae Not Detected (NotDetected); Vibrio, PCR Not Detected (NotDetected); Yersinia Entercolitica, PCR Not Detected (NotDetected)
[2023-11-21] MEDS: ONDANSETRON 4MG ODT 8 MG PO (02:55)
[2023-11-21 04:00] VITALS: BP 125/70; PULSE 54; PULSE 67; RESP 16; TEMP 36.4; O2SAT 97; BMI 20.5
[2023-11-21] MEDS: FLUTICASONE/UMECLIDIN/VILANTER 100/62.5/25MCG INHALER 1 PUFF IH (06:18)
[2023-11-21 06:19] VITALS: O2SAT 92
--- NOTE | 2023-11-21 06:50 | PC.NURSE ---
formed stool snet for gi panel, pt remains on 2l/nc
[2023-11-21 06:56] LABS: Basophils # 0.1 K/mm3 (0-0.2); Basophils % 0.4 % (0.1-2.0); Eosinophils # 0.2 K/mm3 (0.0-0.4); Eosinophils % 1.5 % (0.1-12.0); Lymphocytes # 2.5 K/mm3 (0.7-4.5); Lymphocytes % 24.5 % (10-50); Mean Corpuscular HGB Conc 32.6 g/dL (31.8-35.4); Mean Corpuscular Hemoglobin 30.7 pg (27.0-31.2); Mean Corpuscular Volume 94.1 fl (81-99); Monocytes # 0.8 K/mm3 (0.1-1.0); Monocytes % 7.8 % (1.7-9.3); Neutrophils # 6.7 K/mm3 (1.8-7.8); Neutrophils % 65.8 % (37.0-80.0); Platelet Count 222 K/mm3 (142-424); Red Blood Count 4.25 M/mm3 (4.20-5.40); Red Cell Distribution Width 14.1 % (11.5-17.5); White Blood Count 10.2 K/mm3 (4.8-10.8)
[2023-11-21 07:11] LABS: Chloride 106 mmol/L (98-107); Sodium 137 mmol/L (136-145)
[2023-11-21 07:14] LABS: Blood Urea Nitrogen 19 mg/dl (7-17); Creatinine Clearance Estimated 43 mL/min (50-200); Estimated Glomerular Filt Rate 83 ml/min (>60); GFR (African American) 100 ML/MIN (>60)
[2023-11-21 07:15] LABS: Carbon Dioxide 28 mmol/L (22.0-30.0); Glucose 99 mg/dl (74-100)
[2023-11-21 08:00] VITALS: BP 114/46; PULSE 80; PULSE 83; RESP 20; TEMP 36.7; O2SAT 95
[2023-11-21] MEDS: AZITHROMYCIN 250MG TABLET 500 MG PO (09:29)
[2023-11-21] MEDS: SACUBITRIL/VALSARTAN 24-26MG TABLET 1 EACH PO (09:30)
[2023-11-21] MEDS: predniSONE 20MG TAB 40 MG PO (09:30)
[2023-11-21] MEDS: EMPAGLIFLOZIN 10MG TABLET 10 MG PO (09:30)
[2023-11-21] MEDS: APIXABAN 5MG TABLET 2.5 MG PO (09:30)
[2023-11-21] MEDS: METOPROLOL SUCCINATE XL 25MG TABLET 25 MG PO (09:30)
[2023-11-21] MEDS: CITALOPRAM 10MG TABLET 10 MG PO (09:30)
[2023-11-21] MEDS: clonazePAM 1MG TABLET 1 MG PO (09:30)
[2023-11-21] MEDS: PANTOPRAZOLE 40MG TABLET 40 MG PO (09:30)
[2023-11-21] MEDS: CLOPIDOGREL 75MG TAB 75 MG PO (09:31)
[2023-11-21] MEDS: SPIRONOLACTONE 25MG TABLET 25 MG PO (09:31)
[2023-11-21] MEDS: GABAPENTIN 600MG TABLET 600 MG PO (09:31)
--- NOTE | 2023-11-21 09:46 | EXP.PULM.PN ---
Subjective *Date: 11/21/23 *Time: 10:34 Interval history: No acute respiratory events overnight. Patient denies any new respiratory complaints. Requesting to be discharged home. Pulmonology Exam Inpatient Vital signs and Labs for Last 24 Hours: Temp Pulse Resp BP Pulse Ox O2 Del Method O2 Flow Rate 98.0 F 83 20 114/46 L 95 Nasal Cannula 2 11/21/23 08:00 11/21/23 08:00 11/21/23 08:00 11/21/23 08:00 11/21/23 08:00 11/21/23 08:45 11/21/23 08:45 FiO2 32 11/16/23 02:19 Laboratory Results - last 24 hr 11/21/23 02:45: Stl Aeromonas (PCR) Not detected, Stl C. cayetanensis PCR Not detected, Stool Rotavirus (PCR) Not detected, Stl Adenov F 40/41 PCR Not detected, Stool Astrovirus (PCR) Not detected, Stool Campylobacter PCR Not detected, Stl C.difficile Tox PCR Not detected, Stool Cryptosporidium PCR Not detected, Stl E.coli Shiga Tox PCR Not detected, Stool E coli O157 PCR Not detected, Stl Enterotoxigenic E PCR Not detected, Stool EPEC (PCR) Not detected, Stool EAEC (PCR) Not detected, Stl E. histolytica PCR Not detected, Stool Giardia Lamblia PCR Not detected, Stool Salmonella PCR Not detected, Stool Sapovirus (PCR) Not detected, Stl P. shigelloides PCR Not detected, Stl Shigella/EIEC PCR Not detected, St Y.enterocolitica PCR Not detected, Stool Vibrio (PCR) Not detected, Stl Vibrio cholerae PCR Not detected, Stl Norovirus GI/GII PCR Not detected 11/21/23 06:06: WBC 10.2, RBC 4.25, Hgb 13.0, Hct 40.0, MCV 94.1, MCH 30.7, MCHC 32.6, RDW 14.1, Plt Count 222, MPV 10.0, Neut % (Auto) 65.8, Lymph % (Auto) 24.5, [place] % (Auto) 7.8, Eos % (Auto) 1.5, Baso % (Auto) 0.4, Neut # (Auto) 6.7, Lymph # (Auto) 2.5, [place] # (Auto) 0.8, Eos # (Auto) 0.2, Baso # (Auto) 0.1, Sodium 137, Potassium 4.0, Chloride 106, Carbon Dioxide 28, Anion Gap 7.0, BUN 19 H, Creatinine 0.70, Estimated Creat Clear 43, Estimated GFR 83, Est GFR ( Amer) 100, Glucose 99, Calcium 9.0 Temp Pulse Resp BP Pulse Ox O2 Del Method O2 Flow Rate 97.9 F 108 H 26 H 152/79 H 98 Room Air 3 11/16/23 04:00 11/16/23 08:00 11/16/23 08:00 11/16/23 08:00 11/16/23 08:19 11/16/23 08:19 11/16/23 08:19 FiO2 32 11/16/23 02:19 Laboratory Results - last 24 hr 11/15/23 00:06: Urine Color Yellow, Urine Appearance Cloudy, Urine pH 6.0, Ur Specific [place] >= 1.030, Urine Protein Trace, Urine Glucose (UA) Negative, Urine Ketones Negative, Urine Blood 1+, Urine Nitrate Positive, Urine Bilirubin Negative, Urine Urobilinogen 1.0, Ur Leukocyte Esterase Negative, Urine RBC 50-100, Urine WBC Occasional, Ur Squamous Epith Cells Occasional, Urine Bacteria Trace 11/15/23 22:30: WBC 6.0, RBC 4.17 L, Hgb 12.8, Hct 39.6, MCV 95.1, MCH 30.7, MCHC 32.3, RDW 14.0, Plt Count 177, MPV 9.7, Neut % (Auto) 60.3, Lymph % (Auto) 26.8, [place] % (Auto) 5.8, Eos % (Auto) 5.9, Baso % (Auto) 1.1, Neut # (Auto) 3.6, Lymph # (Auto) 1.6, [place] # (Auto) 0.4, Eos # (Auto) 0.4, Baso # (Auto) 0.1, Sodium 140, Potassium 4.1, Chloride 105, Carbon Dioxide 32 H, Anion Gap 7.1, BUN 13, Creatinine 0.70, Estimated Creat Clear 41, Estimated GFR 83, Est GFR ( Amer) 100, Glucose 110 H, Lactate 0.6 L, Calcium 9.5, Magnesium 2.0, Total Bilirubin 0.4, AST 28, ALT 18, Alkaline Phosphatase 146 H, Troponin I < 0.01, Total Protein 7.1, Albumin 3.8, Globulin 3.3 H, Albumin/Globulin Ratio 1.2, Procalcitonin 0.039 11/16/23 00:11: VBG pH 7.12 L, VBG pCO2 83.9 H, VBG pO2 92.6 H, VBG HCO3 26.5, VBG Total CO2 29.1 H, VBG O2 Saturation 95.1 H, VBG Base Excess -2.8 L, VBG Lactic Acid 3.9 H 11/16/23 03:50: Lactate 2.0, Troponin I 0.48 H 11/16/23 05:00: Specimen Source Left radial, O2 % 32% fio2, ABG pH 7.39, ABG pCO2 45.1 H, ABG pO2 87.6, ABG HCO3 26.6 H, ABG Total CO2 27.9 H, ABG O2 Saturation 97, ABG Base Excess 1.6, Herminio Test Acceptable, Vent Rate 20, PEEP Bipap 18/8 11/16/23 06:08: Sodium 140, Potassium 3.7, Chloride 104, Carbon Dioxide 29, Anion Gap 10.7, BUN 13, Creatinine 0.70, Estimated Creat Clear 40, Estimated GFR 83, Est GFR ( Amer) 100, Glucose 166 H D, Lactate 1.8, Calcium 9.6, Total Bilirubin 0.3, AST 100 H D, ALT 67 D, Alkaline Phosphatase 185 H, Troponin I 0.65 H, Total Protein 7.0, Albumin 3.8, Globulin 3.2, Albumin/Globulin Ratio 1.2, Triglycerides 84, Cholesterol 155, LDL Cholesterol Direct 79.89 L, VLDL Cholesterol 17, HDL Cholesterol 53, Cholesterol/HDL Ratio 2.9 I & O for Labs for Last 24 Hours: Intake & Output 11/18/23 11/19/23 11/20/23 11/21/23 23:59 23:59 23:59 23:59 Intake Total 1200 / 1350 1120 / 1170 1220 / 1460 840 / 840 Output Total 900 / 1400 1850 / 1850 300 / 300 0 / 0 Balance 300 / -50 -730 / -680 920 / 1160 840 / 840 Weight 110 lb 113 lb 6 oz 110 lb 8 oz 111 lb 12.8 oz Intake & Output 11/13/23 11/14/23 11/15/23 11/16/23 23:59 23:59 23:59 23:59 Output Total 1100 / 1100 Balance -1100 / -1100 Weight 108 lb [id number] lb 14.321 oz Microbiology Reports for the Last 24 Hours: Microbiology 11/16/23 01:22 Blood Blood Culture - Preliminary NO GROWTH AFTER 5 DAYS 11/16/23 01:22 Blood Blood Culture - Preliminary NO GROWTH AFTER 5 DAYS Constitutional: Present moderate distress Head: Present normocephalic and atraumatic ENT: Present normal exam, normal oropharynx and mucous membranes moist Neck: Present normal inspection and full ROM Respiratory: Present normal respiratory effort and able to speak in complete sentences; Absent prolonged expiratory phase, respiratory distress or wheezes Cardiac: Present S1/S2, Tachycardia and radial pulses present GI: Present soft and distention; Absent tenderness or guarding Rectal (female): Present deferred (female): Present deferred Skin: Present intact; Absent cyanosis or jaundice Neuro: Present alert, awake and oriented x 3 Extremities: Present normal inspection; Absent clubbing or cyanosis Psychiatric: Present normal affect and cooperative Assessment and Plan *Assessment and plan (1) Acute on chronic respiratory failure with hypoxia and hypercapnia: Status: Acute Category: Medical Code(s): J96.21 - Acute and chronic respiratory failure with hypoxia; J96.22 - Acute and chronic respiratory failure with hypercapnia (2) Acute exacerbation of chronic obstructive pulmonary disease: Status: Acute Category: Medical Code(s): J44.1 - Chronic obstructive pulmonary disease with (acute) exacerbation (3) Pneumonia: Status: Acute Qualifiers: Laterality: left Lung location: lower lobe of lung Pneumonia type: due to unspecified organism Qualified Code(s): J18.9 - Pneumonia, unspecified organism Category: Medical Code(s): J18.9 - Pneumonia, unspecified organism Plan Ms. Hurst is a 68-year-old female history of COPD 4 L oxygen supplementation at baseline, atrial fibrillation hypertension dyslipidemia presented to ER with concern for urinary tract infection, found to be having hypercarbic respiratory failure and pulmonary was called for further evaluation and management. Chest x-ray upon admission, bilateral lower lobe predominant interstitial changes right greater than left. No effusions noted. Afebrile. Hemodynamically stable. No evidence of leukocytosis upon admission. VBG upon admission showed severe hypercarbic respiratory failure with a pH of 7.120 PE CO2 of 83.9. Subsequent blood gases showed improved hypercarbic respiratory failure. Patient admits compliance with the Trelegy inhaler. Also admits using nebulization therapies more frequently than recommended to manage her stress which is unrelated to her respiratory distress as per the patient. On initial examination, auscultation no significant wheezing noted. Interval update: No acute respiratory events overnight. Denies any new respiratory complaints. Continues remain on oxygen supplementation intermittently. No wheezing noted on auscultation. Rhonchorous breath sound completed antibiotics and steroids. Plan: Incentive spirometry and flutter valve Continue nasal cannula oxygen supplementation, currently on 1 L nasal cannula saturating 90 percent and above. Saturations dropped less than 89% when weaned to room air. Trelegy 100 inhaler DuoNebs every 6 hours on as-needed basis Thank you involving pulmonary in this patient care. Will follow in pulmonary clinic in 2 weeks post discharge.
--- NOTE | 2023-11-21 11:02 | EXP.DC.SUM ---
General Admission date:: 11/16/23 Discharge date: 11/21/23 HPI HPI HPI: This is a 68-year-old female with a past medical history of COPD and chronic respiratory failure on 3 L at baseline, paroxysmal A-fib on Eliquis, CAD, hypertension who presents emergency department initially for concerns for urinary tract infection. Upon arrival to the emergency department she was able to communicate and speak in full sentences and states that she had difficulty with urination with dysuria and starting stream. Went and saw her PCP today but was unable to provide a urinary sample for them so to be stepped home to be able to provide a sample and take it back the next day. She reported to the ED, of being septic previously for urinary tract infection and was concerned for this so sought treatment in the emergency department. While in the emergency department being worked up for urinary symptoms, she was ambulatory to the bathroom to provide her sample and became acutely short of breath resulting in acute respiratory decompensation She was noted to be tachypneic, tachycardic, in respiratory distress with change in mentation. On direct examination, she had very minimal lung sounds audible with auscultation. She was placed on continuous DuoNeb without much improvement. ABG was obtained with a pH of 7.12 and a CO2 of 84. Daughter at bedside states the patient is a DNR/DNI and does not wish to be placed on mechanical ventilation. There is additional concerns that patient would not tolerate BiPAP but upon admission, BiPAP was trialed and did have improvement in respiratory symptoms. On admission, blood pressure improved from systolic in the 200s to the 150s. Heart rate is improved down to the low 100s with good oxygenation and improved lung movement. She was covered with Rocephin and doxycycline for possible superimposed pneumonia. Chest x-ray obtained and shows progression of interstitial prominence particularly in the periphery of the lung bases that could represent pulmonary edema or inflammation. Given her acute respiratory failure, she is admitted to the hospital service for further evaluation management. Addendum: 0445 Patient with notable increase in troponin from 0.01 to 0.48. Likely secondary to Respiratory distress. Repeat assesment this morning and patient is now AAox3 with normal respiratory effort. Denies any chest pain now or previously, stating she feels good right now. Does follow with Dr. Gonzalez at baseline, will consult cards this am. ASA given. Hospital Course Hospital Course Hospital Course: Ms. Hurst is a 68-year-old female history of COPD 4 L oxygen supplementation at baseline, atrial fibrillation hypertension dyslipidemia presented to ER with concern for urinary tract infection, found to be having hypercarbic respiratory failure. Admitted for management of her respiratory failure and UTI. Also found to have concern for component of heart failure. Cardiology and pulmonology consulted during admission to assist with care. Patient showed improvement clinically. Respiratory failure showed improvement during admission. At baseline oxygen requirement by day of discharge. Due to progressive debility, patient necessitating rehab at discharge. Will transition to [facility] at discharge for further care. Stable to discharge at this time. Follow-up with specialists in the coming weeks. Problems addressed during hospitalization as follows: #Acute on chronic respiratory failure with hypoxia and hypercapnia - improved Acute respiratory failure noted during evaluation in the ER. Initiated on goal-directed therapy with antibiotics and steroids and breathing treatments. Showed improvement during admission. Pulmonology consulted to assist with care. Treated with DuoNebs, prednisone, antibiotics. Completed 5 days of antibiotics and steroids prior to discharge. Improved from a respiratory standpoint to baseline oxygen of 2 to 3 L. Stable to discharge. Given her smoking history, recommend continued nicotine patches. No acute respiratory events overnight. Denies any new respiratory complaints. Continues remain on oxygen supplementation intermittently. No wheezing noted on auscultation. Rhonchorous breath sound completed antibiotics and steroids. Recommend continuing incentive spirometry and flutter valve. Continue Trelegy 100 inhaler and DuoNebs every 6 hours as needed. Goal saturation greater 90%. 2 to 3 L oxygen as needed. #Acute cystitis - Asymptomatic at admission. Treated with empiric ceftriaxone. White cell count normalized to 10 by day of discharge. No further antibiotics at discharge. #Paroxysmal A-fib # Heart failure with reduced ejection fraction # Hypertension -Cardiology consulted during admission. Adjustments made to medications. Echo obtained showing wall motion abnormality and EF of 40 to 45%. Patient taken for left heart cath. No stenting performed. Adjustments made to medical management including initiation of Jardiance 10 mg daily, Entresto 24/26 mg twice daily, spironolactone 25 mg daily. Discontinued aspirin. Continue Eliquis. Discontinue lisinopril. Continue metoprolol succinate 25 mg daily. Plan for follow-up with cardiology in the coming weeks. #Anxiety Continue home Klonopin 1 mg twice daily and citalopram 10 mg daily. #HLD Continue home Lipitor 10 mg daily Completed antibiotics. Stable to discharge to rehab. Total time spent on discharge 32 minutes in counseling, documentation, chart review, and direct care with patient. Exam Data for Last 24 hours Vital signs and Labs for Last 24 Hours: Temp Pulse Resp BP Pulse Ox O2 Del Method O2 Flow Rate 98.0 F 83 20 114/46 L 95 Nasal Cannula 3 11/21/23 08:00 11/21/23 08:00 11/21/23 08:00 11/21/23 08:00 11/21/23 08:00 11/21/23 10:19 11/21/23 10:19 FiO2 32 11/16/23 02:19 Laboratory Results - last 24 hr 11/21/23 02:45: Stl Aeromonas (PCR) Not detected, Stl C. cayetanensis PCR Not detected, Stool Rotavirus (PCR) Not detected, Stl Adenov F 40/41 PCR Not detected, Stool Astrovirus (PCR) Not detected, Stool Campylobacter PCR Not detected, Stl C.difficile Tox PCR Not detected, Stool Cryptosporidium PCR Not detected, Stl E.coli Shiga Tox PCR Not detected, Stool E coli O157 PCR Not detected, Stl Enterotoxigenic E PCR Not detected, Stool EPEC (PCR) Not detected, Stool EAEC (PCR) Not detected, Stl E. histolytica PCR Not detected, Stool Giardia Lamblia PCR Not detected, Stool Salmonella PCR Not detected, Stool Sapovirus (PCR) Not detected, Stl P. shigelloides PCR Not detected, Stl Shigella/EIEC PCR Not detected, St Y.enterocolitica PCR Not detected, Stool Vibrio (PCR) Not detected, Stl Vibrio cholerae PCR Not detected, Stl Norovirus GI/GII PCR Not detected 11/21/23 06:06: WBC 10.2, RBC 4.25, Hgb 13.0, Hct 40.0, MCV 94.1, MCH 30.7, MCHC 32.6, RDW 14.1, Plt Count 222, MPV 10.0, Neut % (Auto) 65.8, Lymph % (Auto) 24.5, Logan % (Auto) 7.8, Eos % (Auto) 1.5, Baso % (Auto) 0.4, Neut # (Auto) 6.7, Lymph # (Auto) 2.5, Logan # (Auto) 0.8, Eos # (Auto) 0.2, Baso # (Auto) 0.1, Sodium 137, Potassium 4.0, Chloride 106, Carbon Dioxide 28, Anion Gap 7.0, BUN 19 H, Creatinine 0.70, Estimated Creat Clear 43, Estimated GFR 83, Est GFR ( Amer) 100, Glucose 99, Calcium 9.0 I & O for Last 24 hours: Intake & Output 11/18/23 11/19/23 11/20/23 11/21/23 23:59 23:59 23:59 23:59 Intake Total 1200 / 1350 1120 / 1170 1220 / 1460 840 / 840 Output Total 900 / 1400 1850 / 1850 300 / 300 0 / 0 Balance 300 / -50 -730 / -680 920 / 1160 840 / 840 Weight 49.895 kg 51.426 kg 50.122 kg 50.712 kg Microbiology Reports for the Last 24 Hours: Microbiology 11/16/23 01:22 Blood Blood Culture - Final NO GROWTH AFTER 5 DAYS 11/16/23 01:22 Blood Blood Culture - Final NO GROWTH AFTER 5 DAYS Constitutional Constitutional: no acute distress, average body habitus and chronically ill appearing *Routine HEENT Exam Head: Present normocephalic Eye: Present EOMI and PERRL ENT: Present mucous membranes moist *Routine Neck Exam Neck: Present supple *Routine Respiratory Exam Respiratory: Present wheezes (Minimal, expiratory), normal respiratory effort and symmetric chest movement; Absent rhonchi or crackles *Routine Cardiovascular Exam Cardiovascular: Present RRR *Routine Abdominal Exam Abdominal: Present soft and normoactive bowel sounds; Absent tenderness *Routine Rectal Exam Patient deferred: visual exam *Routine Exam Patient deferred: external exam *Routine Extremities Exam Extremities: Present full ROM; Absent cyanosis or edema *Routine Skin Exam Skin: Present warm; Absent rash *Routine Neurological Exam Neurological: Present alert, oriented X3, moving all extremities, vision grossly intact, hearing grossly intact and normal speech; Absent sensory deficit or motor deficit Routine Psychiatric Exam Psychiatric: Present normal affect, normal thought process, cooperative and good judgment Results Data Completed and Pending Labs on day of discharge: Labs from last 24 hours 11/21/23 11/21/23 06:06 02:45 WBC 10.2 RBC 4.25 Hgb 13.0 Hct 40.0 MCV 94.1 MCH 30.7 MCHC 32.6 RDW 14.1 Plt Count 222 MPV 10.0 Neut % (Auto) 65.8 Lymph % (Auto) 24.5 Logan % (Auto) 7.8 Eos % (Auto) 1.5 Baso % (Auto) 0.4 Neut # (Auto) 6.7 Lymph # (Auto) 2.5 Logan # (Auto) 0.8 Eos # (Auto) 0.2 Baso # (Auto) 0.1 Sodium 137 Potassium 4.0 Chloride 106 Carbon Dioxide 28 Anion Gap 7.0 BUN 19 H Creatinine 0.70 Estimated Creat Clear 43 Estimated GFR 83 Est GFR ( Amer) 100 Glucose 99 Calcium 9.0 Stl Aeromonas (PCR) Not detected Stl C. cayetanensis PCR Not detected Stool Rotavirus (PCR) Not detected Stl Adenov F 40/41 PCR Not detected Stool Astrovirus (PCR) Not detected Stool Campylobacter PCR Not detected Stl C.difficile Tox PCR Not detected Stool Cryptosporidium PCR Not detected Stl E.coli Shiga Tox PCR Not detected Stool E coli O157 PCR Not detected Stl Enterotoxigenic E PCR Not detected Stool EPEC (PCR) Not detected Stool EAEC (PCR) Not detected Stl E. histolytica PCR Not detected Stool Giardia Lamblia PCR Not detected Stool Salmonella PCR Not detected Stool Sapovirus (PCR) Not detected Stl P. shigelloides PCR Not detected Stl Shigella/EIEC PCR Not detected St Y.enterocolitica PCR Not detected Stool Vibrio (PCR) Not detected Stl Vibrio cholerae PCR Not detected Stl Norovirus GI/GII PCR Not detected DS: Diagnosis Discharge Diagnosis (1) Acute on chronic respiratory failure with hypoxia and hypercapnia: Status: Acute Code(s): J96.21 - Acute and chronic respiratory failure with hypoxia; J96.22 - Acute and chronic respiratory failure with hypercapnia (2) Acute exacerbation of chronic obstructive pulmonary disease: Status: Acute Code(s): J44.1 - Chronic obstructive pulmonary disease with (acute) exacerbation (3) Pneumonia: Status: Acute Code(s): J18.9 - Pneumonia, unspecified organism Qualifiers: Laterality: left Lung location: lower lobe of lung Pneumonia type: due to unspecified organism Qualified Code(s): J18.9 - Pneumonia, unspecified organism Meds Home Medications and Allergies Home Medications Medication Instructions Recorded Confirmed Type albuterol sulfate 90 mcg/actuation 2 puff inhalation Q4HP PRN 10/05/23 11/16/23 Rx aerosol inhaler Shortness Of Breath #8.5 grams atorvastatin 10 mg tablet 10 mg PO HS Cholesterol #100 tabs 10/18/23 11/16/23 Rx melatonin 5 mg tablet 5 mg PO HS #90 tabs 11/06/23 11/16/23 Rx ondansetron 8 mg disintegrating 8 mg PO Q8H PRN nausea and 11/08/23 11/16/23 Rx tablet vomiting 5 days #30 tabs apixaban 5 mg tablet (Eliquis) 2.5 mg PO BID atrial fib 11/16/23 11/16/23 History citalopram 10 mg tablet 10 mg PO DAILY 11/16/23 11/16/23 History fluticasone fur. 100 mcg-umeclid 1 inh inhalation DAILY 11/16/23 11/16/23 History 62.5 mcg-vilant 25 mcg inhalat.powder (Trelegy Ellipta) metoprolol succinate 25 mg 25 mg PO DAILY 11/16/23 11/16/23 History tablet,extended release 24 hr pantoprazole 40 mg tablet,delayed 40 mg PO DAILY 11/16/23 11/16/23 History release clonazepam 1 mg tablet (Klonopin) 1 mg PO BID 30 days #60 tabs 11/21/23 Rx empagliflozin 10 mg tablet 10 mg PO DAILY 30 days #30 tabs 11/21/23 Rx (Jardiance) gabapentin 600 mg tablet 600 mg PO BID 30 days #60 tabs 11/21/23 Rx nicotine 21 mg/24 hr daily 21 mg transdermal DAILYP PRN 11/21/23 Rx transdermal patch Nicotine Cravings 30 days #30 ea sacubitril 24 mg-valsartan 26 mg 1 tab PO BID 30 days #60 tabs 11/21/23 Rx tablet (Entresto) spironolactone 25 mg tablet 25 mg PO DAILY 30 days #30 tabs 11/21/23 Rx New Prescriptions to Start Prescriptions: clonazepam [Klonopin] Joshua Baeza empagliflozin [Jardiance] Joshua Baeza gabapentin Joshua Baeza nicotine Joshua Baeza sacubitril-valsartan [Entresto] Joshua Baeza spironolactone Joshua Baeza Allergies Allergy/AdvReac Type Severity Reaction Status Date / Time levofloxacin Allergy Intermediate blisters Verified 11/15/23 15:26 in mouth, diarrhea Discharge Plan Disposition Patient Disposition: er [facility] Condition: Fair Discharge Order Discharge Orders: Discharge Order (Routine); Ordered 11/21/23 Ordered By: Joshua Baeza Follow up Plan Follow up with: Stephy Morin PA [Primary Care Provider] - Enter time for follow up Mansoor Gonzalez MD [Staff Physician] - 11/27/23 11:30 am Roxann Hopkins MD [Physician] - 12/05/23 2:15 pm Prescriptions/Medication Reconciliation: New spironolactone 25 mg Tablet 25 mg PO DAILY 30 Days Qty: 30 0RF Entresto 24-26 mg Tablet 1 tab PO BID 30 Days Qty: 60 0RF nicotine 21 mg/24 hr Patch 24 Hour 21 mg transdermal DAILYP PRN (Reason: Nicotine Cravings) 30 Days Qty: 30 0RF Jardiance 10 mg Tablet 10 mg PO DAILY 30 Days Qty: 30 0RF Continued albuterol sulfate 90 mcg/actuation HFA aerosol inhaler 2 puff INHALATION Q4HP PRN (Reason: Shortness Of Breath) Qty: 8.5 2RF atorvastatin 10 mg tablet 10 mg PO HS Qty: 100 0RF melatonin 5 mg tablet 5 mg PO HS Qty: 90 0RF ondansetron 8 mg tablet,disintegrating 8 mg PO Q8H PRN (Reason: nausea and vomiting) 5 Days Qty: 30 0RF citalopram 10 mg tablet 10 mg PO DAILY Rx Instructions: TAKE ONE TABLET BY MOUTH EVERY DAY pantoprazole 40 mg tablet,delayed release (DR/EC) 40 mg PO DAILY metoprolol succinate 25 mg tablet extended release 24 hr 25 mg PO DAILY Eliquis 5 mg tablet 2.5 mg PO BID Trelegy Ellipta 100-62.5-25 mcg blister with device 1 inh inhalation DAILY Rx Instructions: INHALE 1 PUFF BY MOUTH EVERY DAY DIRECTED gabapentin 600 mg tablet 600 mg PO BID 30 Days Qty: 60 0RF clonazepam [Klonopin] 1 mg tablet 1 mg PO BID 30 Days Qty: 60 0RF Discontinued lisinopril 5 mg tablet 5 mg PO DAILY Rx Instructions: TAKE ONE TABLET BY MOUTH EVERY DAY Problem Reconciliation Problems Reviewed?: Yes Patient Discharge Instructions ACTIVITY: Continue current activity and Ambulate as tolerated DIET: continue same diet Patient Instructions: DI for Pneumonia -- Adult, DI for Atrial Fibrillation, DI for Respiratory Failure Providers Primary Care Provider: Stephy Morin Admit Provider: Kerrie Licea Attending Provider: Kerrie Licea
[2023-11-21 12:00] VITALS: BP 128/70; PULSE 65; PULSE 66; RESP 20; TEMP 36.5; O2SAT 96
[2023-11-21] MEDS: ONDANSETRON 4MG ODT 8 MG SL (13:19)
[2023-11-21] MEDS: HYDROCODONE/APAP 5/325 MG TABLET 2 TAB PO (13:19)
--- NOTE | 2023-11-21 14:10 | PC.NURSE ---
report called to Keri KING at [facility].
== END 2023-11-21 15:10 | DRG 280 ==
LOC: ER 11-16 00:51 → 2ND 11-16 02:05
PROVIDERS: Internal Medicine; Nurse Practitioner Acute Care; Physician Assistant; Admitting Provider Internal Medicine; Emergency Provider Emergency Medicine; PCP Physician Assistant; Visit Provider Internal Medicine
PROC: B2111ZZ Fluoroscopy of Multiple Coronary Arteries using Low Osmolar Contrast (ICD-10-PCS; principal; 2023-11-17 12:30)
DX: I11.0 Hypertensive heart disease with heart failure; I50.21 Acute systolic (congestive) heart failure; I21.4 Non-ST elevation (NSTEMI) myocardial infarction; J96.21 Acute and chronic respiratory failure with hypoxia; J18.9 Pneumonia, unspecified organism; J96.22 Acute and chronic respiratory failure with hypercapnia; J44.1 Chronic obstructive pulmonary disease with (acute) exacerbation; J44.0 Chronic obstructive pulmonary disease with (acute) lower respiratory infection; N30.00 Acute cystitis without hematuria; I73.9 Peripheral vascular disease, unspecified; F41.9 Anxiety disorder, unspecified; G89.29 Other chronic pain; G47.00 Insomnia, unspecified; F32.A Depression, unspecified; Z99.81 Dependence on supplemental oxygen; I48.0 Paroxysmal atrial fibrillation; Z79.01 Long term (current) use of anticoagulants; I25.10 Atherosclerotic heart disease of native coronary artery without angina pectoris; F17.210 Nicotine dependence, cigarettes, uncomplicated; I48.91 Unspecified atrial fibrillation
CPT/HCPCS: 36415; 71045; 73030; 73110; 80048; 80053; 80061; 81001; 82803; 83605; 83735; 83880; 84145; 84484; 85025; 87040; 87507; 93005; 93306; 93454; 94640; 94667; 94760; 94761; 97110; 97161; 97166; 97530; 99152; 99285; C1725; C1769; J0131; J0456; J0696; J1644; J1940; J2250; J2405; J2920; J2930; J3010; J3475; J7030; J7120; J7620; Q9967

== ENCOUNTER 2023-12-12 15:04 | Outpatient (CLI) | payer MEDICARE, SELFPAY ==
[2023-12-13 14:23] LABS: H. pylori Breath Test Negative (Negative)
== END 2023-12-12 23:59 | disposition home or self-care (01) ==
LOC: LAB 15:05
PROVIDERS: PCP Physician Assistant; Visit Provider Physician Assistant
DX: R10.9 Unspecified abdominal pain (principal); R19.7 Diarrhea, unspecified; R11.10 Vomiting, unspecified
CPT/HCPCS: 83013

== ENCOUNTER 2024-01-07 14:38 | Emergency (ER) | payer MEDICARE, SELFPAY ==
[2024-01-07] VITALS (7 sets, daily range): BP systolic 135–163; BP diastolic 57–73; PULSE 82–85; RESP 22–30; TEMP 36.7; O2SAT 97–100; BMI 19.3
--- NOTE | 2024-01-07 14:44 | ED_ITS ---
<Statement entered by Abelardo Lorenzo MD - 01/07/24 16:26> I was consulted by the GUERA, and we discussed the complexity of the problems being addressed. I approved the treatment and management plan for this patient's care in the emergency department, thus performing a substantive portion of the medical decision making. Abelardo Lorenzo MD Discharge Plan Disposition Patient Disposition: Home, Self-Care Condition: Good Prescriptions Prescriptions: New ondansetron 4 mg tablet,disintegrating 4 mg PO Q6H PRN (Reason: nausea and vomiting) Qty: 10 0RF No Action lisinopril 5 mg tablet 5 mg PO DAILY Qty: 30 2RF clopidogrel 75 mg tablet 75 mg PO DAILY Qty: 30 2RF spironolactone 25 mg tablet 25 mg PO DAILY 30 Days Qty: 30 0RF meclizine 25 mg tablet 25 mg PO TID PRN (Reason: dizziness) Qty: 30 0RF atorvastatin 10 mg tablet 10 mg PO HS Qty: 100 0RF melatonin 5 mg tablet 5 mg PO HS Qty: 90 0RF clonazepam [Klonopin] 1 mg tablet 1 mg PO BID 30 Days Qty: 60 0RF gabapentin 600 mg tablet 600 mg PO BID 30 Days Qty: 60 0RF albuterol sulfate 90 mcg/actuation HFA aerosol inhaler 2 puff INHALATION Q4HP PRN (Reason: Shortness Of Breath) Qty: 8.5 2RF Jardiance 10 mg tablet See Rx Instructions .ROUTE .COMPLEX Qty: 30 0RF Dose Instruction: TAKE ONE TABLET BY MOUTH EVERY DAY Rx Instructions: TAKE ONE TABLET BY MOUTH EVERY DAY ondansetron 8 mg tablet,disintegrating 8 mg PO Q8H PRN (Reason: nausea and vomiting) 5 Days Qty: 30 0RF Trelegy Ellipta 100-62.5-25 mcg blister with device 1 inh inhalation DAILY Qty: 60 5RF Rx Instructions: INHALE 1 PUFF BY MOUTH EVERY DAY DIRECTED citalopram 10 mg tablet 10 mg PO DAILY Rx Instructions: TAKE ONE TABLET BY MOUTH EVERY DAY pantoprazole 40 mg tablet,delayed release (DR/EC) 40 mg PO DAILY metoprolol succinate 25 mg tablet extended release 24 hr 25 mg PO DAILY Eliquis 5 mg tablet 2.5 mg PO BID Referrals Follow up/Referrals: Provider,Referral, MD [Primary Care Provider] - See instructions Activity Restrictions/Add. Instructions Additional Instructions/Restrictions: Return to ER for any worsening pain fever inability to tolerate oral intake. Follow-up with your PCP as needed. Clinical Impressions Clinical Impression: Suprapubic abdominal pain, Nausea Instructions Patient Instructions: DI for Acute Abdominal Pain Print Language Print Language: [place] Discharge ED Provider: Demetri Almazan General Adult HPI General Chief complaint: Abdominal Pain Stated complaint: weakness,vomiting Time Seen by Provider: 01/07/24 14:44 History of Present Illness HPI narrative: Patient presents for evaluation of nausea and suprapubic abdominal pain. Patient reports that she began feeling nauseated yesterday and is progressed today. She also reports suprapubic abdominal pain but denies vomiting or diarrhea. She does have COPD on chronic 3 L by nasal cannula. Related Data Home Medications ?Medication ?Instructions ?Recorded ?Confirmed apixaban 5 mg tablet (Eliquis) 2.5 mg PO BID atrial fib 11/16/23 12/12/23 citalopram 10 mg tablet 10 mg PO DAILY 11/16/23 12/12/23 metoprolol succinate 25 mg 25 mg PO DAILY 11/16/23 12/12/23 tablet,extended release 24 hr pantoprazole 40 mg tablet,delayed 40 mg PO DAILY 11/16/23 12/12/23 release Previous Rx's ?Medication ?Instructions ?Recorded atorvastatin 10 mg tablet 10 mg PO HS Cholesterol #100 tabs 10/18/23 melatonin 5 mg tablet 5 mg PO HS #90 tabs 11/06/23 clopidogrel 75 mg tablet 75 mg PO DAILY #30 tabs 12/06/23 lisinopril 5 mg tablet 5 mg PO DAILY #30 tabs 12/06/23 spironolactone 25 mg tablet 25 mg PO DAILY 30 days #30 tabs 12/06/23 albuterol sulfate 90 mcg/actuation 2 puff inhalation Q4HP PRN 12/08/23 aerosol inhaler Shortness Of Breath #8.5 grams clonazepam 1 mg tablet (Klonopin) 1 mg PO BID 30 days #60 tabs 12/08/23 gabapentin 600 mg tablet 600 mg PO BID 30 days #60 tabs 12/08/23 meclizine 25 mg tablet 25 mg PO TID PRN dizziness #30 tabs 12/12/23 empagliflozin 10 mg tablet See Rx Instructions .Route 01/02/24 (Jardiance) .COMPLEX #30 tabs ondansetron 8 mg disintegrating 8 mg PO Q8H PRN nausea and 01/04/24 tablet vomiting 5 days #30 tabs fluticasone fur. 100 mcg-umeclid 1 inh inhalation DAILY #60 ea 01/05/24 62.5 mcg-vilant 25 mcg inhalat.powder (Trelegy Ellipta) ondansetron 4 mg disintegrating 4 mg PO Q6H PRN nausea and 01/07/24 tablet vomiting #10 tabs Allergies Allergy/AdvReac Type Severity Reaction Status Date / Time levofloxacin Allergy Intermediate blisters Verified 12/12/23 14:29 in mouth, diarrhea Sulfa (Sulfonamide Allergy Unknown Verified 01/07/24 14:59 Antibiotics) [facility] Disclaimer: The information contained in this section may have been updated after the patient was seen, as this information can be updated by other users. Medical History Pneumonia Decreased muscle strength Unsteady gait Respiratory failure with hypoxia and hypercapnia COPD exacerbation Encounter for screening for malignant neoplasm of lung Family history of asthma COPD mixed type Smoking greater than 30 pack years SOB (shortness of breath) on exertion Chronic respiratory failure with hypoxia O2 dependent Presence of arterial stent H/O Hampton's palsy Sinus tachycardia Hypertrophic obstructive cardiomyopathy (2020) Cardiac cath Vitamin D deficiency Hampton's palsy Depression PTSD (post-traumatic stress disorder) Insomnia Chronic pain COPD exacerbation Pulmonary nodule CAD (coronary artery disease) HLD (hyperlipidemia) PAD (peripheral artery disease) HTN (hypertension) Anxiety Lung nodule seen on imaging study Surgical History Appendicolith S/P peripheral artery angioplasty with stent placement Family History Other Family history of hypertension Social History Smoking Status: Current every day smoker tobacco type: cigarettes packs per day: 1 second hand exposure: No alcohol intake: never substance use type: denies use current occupational status: retired Travel in the last 8 weeks: None household members: children and none housing: house lives independently: No ROS Obtained: Yes Systems reviewed as appropriate & no additional complaints except as documented Physical Exam General General appearance: alert and in no apparent distress Chest Chest inspection: Present normal inspection and symmetric chest wall rise Respiratory Respiratory exam: Present normal lung sounds bilaterally; Absent respiratory distress, wheezes, stridor or accessory muscle use Cardiovascular Cardiovascular exam: Present regular rate, normal rhythm and normal heart sounds Abdominal Exam Abdominal exam: Present soft, tenderness (Suprapubic tenderness), rigidity and normal bowel sounds; Absent guarding or rebound Extremities Exam Extremities exam: Present normal inspection and full ROM Back Exam Back exam: Present normal inspection and full ROM Neurological Exam Neurological exam: Present alert and oriented X3 Skin Skin exam: Present warm, dry and normal color Medical Decision Making Medical Records Medical records reviewed: Yes I reviewed the patient's medical records. [place] Inquiry Pt receiving controlled substance: No Vital Signs: 01/07/24 14:39 01/07/24 14:43 01/07/24 15:00 Temperature 98.1 F Temperature Source Oral Pulse Rate 83 82 Pulse Rate [Left Radial] 84 Respiratory Rate 30 H 28 H 25 H Blood Pressure 139/67 135/57 L Blood Pressure [Right Arm] 139/67 Blood Pressure Mean [Right Arm] 91 02 Sat by Pulse Oximetry 97 98 97 Oxygen Delivery Method Nasal Cannula Nasal Cannula Nasal Cannula Oxygen Flow Rate (LPM) 3 3 3 01/07/24 15:31 Temperature Temperature Source Pulse Rate 84 Pulse Rate [Left Radial] Respiratory Rate 29 H Blood Pressure 163/68 H Blood Pressure [Right Arm] Blood Pressure Mean [Right Arm] 02 Sat by Pulse Oximetry 100 Oxygen Delivery Method Room Air Oxygen Flow Rate (LPM) Lab Data Lab results reviewed: Yes I reviewed the patient's lab results. Lab Results 01/07/24 14:46: WBC 5.2, RBC 3.61 L, Hgb 11.6 L, Hct 34.5 L, MCV 95.7, MCH 32.2 H, MCHC 33.7, RDW 13.4, Plt Count 186, MPV 9.6, Neut % (Auto) 67.3, Lymph % (Auto) 22.5, [place] % (Auto) 5.7, Eos % (Auto) 3.6, Baso % (Auto) 1.0, Neut # (Auto) 3.5, Lymph # (Auto) 1.2, [place] # (Auto) 0.3, Eos # (Auto) 0.2, Baso # (Auto) 0.1, Sodium 142, Potassium 3.8, Chloride 111 H, Carbon Dioxide 28, Anion Gap 6.8, BUN 7, Creatinine 1.10 H, Estimated Creat Clear 37, Estimated GFR 49 L, Est GFR ( Amer) 60, Glucose 87, Calcium 9.0, Total Bilirubin 0.5, AST 19, ALT 11 L, Alkaline Phosphatase 118, Total Protein 6.7, Albumin 3.8, Globulin 2.9, Albumin/Globulin Ratio 1.3 01/07/24 14:51: Urine Color Yellow, Urine Appearance Clear, Urine pH 6.0, Ur Specific [place] 1.015, Urine Protein Negative, Urine Glucose (UA) Negative, Urine Ketones Negative, Urine Blood Negative, Urine Nitrate Negative, Urine Bilirubin Negative, Urine Urobilinogen 0.2, Ur Leukocyte Esterase Negative, Urine RBC None, Urine WBC None, Ur Squamous Epith Cells Occasional, Urine Bacteria None 01/07/24 14:46 01/07/24 14:46 Orders (Tests/Meds): ED MEDICATIONS Generic Name Dose Route Start Last Admin Trade Name Freq PRN Reason Stop Dose Admin Sodium Chloride 10 ml 01/07/24 15:24 01/07/24 15:25 Sodium Chloride 0.9% 10ml Syr (Rad Only) IV 02/06/24 15:23 10 ml NEEDED PRN Administration Maintain IV Site Discontinued Medications Generic Name Dose Route Start Last Admin Trade Name Freq PRN Reason Stop Dose Admin Acetaminophen 1,000 mg 01/07/24 14:48 01/07/24 15:05 Acetaminophen 1,000mg/100ml Vial IV 01/07/24 14:49 1,000 mg ONCE ONE Administration Lactated Ringer's 1,000 mls @ 999 mls/hr 01/07/24 14:48 01/07/24 15:05 Lactated Ringer's 1000 Ml Bag IV 01/07/24 15:48 999 mls/hr .Q1H1M ONE Administration Iopamidol 75 ml 01/07/24 15:24 01/07/24 15:25 Iopamidol-370 (76%);100ml Bottle IV 01/07/24 15:25 75 ml ONCE ONE Administration Ketorolac Tromethamine 15 mg 01/07/24 14:48 01/07/24 15:05 Ketorolac 30mg/Ml Vial IV 01/07/24 14:49 15 mg ONCE ONE Administration Ondansetron HCl 4 mg 01/07/24 14:48 01/07/24 15:05 Ondansetron 4mg/2ml Vial IV 01/07/24 14:49 4 mg ONCE ONE Administration ORDERS Category Date Time Status CT abdomen pelvis w con Stat Cat Scan 01/07/24 15:13 Completed CBC w/Auto Diff [Complete Blood Count Auto Diff] Stat Lab 01/07/24 14:46 Completed CMP [Comprehensive Metabolic Panel] Stat Lab 01/07/24 14:46 Completed UA [Urinalysis and Microscopic] Stat Lab 01/07/24 14:51 Completed Medical Decision Narrative: In summary patient is a 68-year-old female who presents to the emergency department for evaluation of nausea and suprapubic abdominal pain. Patient is hemodynamically stable upon arrival, afebrile. Physical exam is remarkable for much older than stated age. 68-year-old female who has suprapubic abdominal pain on examination but normal bowel sounds normal breath sounds no rebound guarding or rigidity.. Differential diagnosis includes urinary tract infection versus constipation versus sepsis etc. Initial workup will be conducted with hematologic labs catheterized UA. Initial interventions include fluid bolus Toradol Tylenol Zofran. Initial workup reviewed by me shows that her hematologic labs are nonactionable with the exception of a slightly elevated creatinine and lower GFR than her baseline, and her urinalysis is clean. My informal interpretation of CT scan of her abdomen pelvis shows no acute processes although she does have a large amount of scattered gas and diverticular disease but no evidence of diverticulitis. Upon repeat evaluation patient had modest improvement in her nausea and is tolerating oral intake. Patient is breathing 20 times a minute and her baseline 3 L by nasal cannula with no increased work of breathing. Given this patient is appropriate for discharge with a prescription for Zofran sent to her pharmacy. Critical Care Critical Care Time Critical Care Time: No
--- NOTE | 2024-01-07 14:44 | ECG_ITS ---
APPROVED REPORT Exam: Resting ECG HR:83 bpm ECG Measurements Heart Rate 83 AXES IA 141 P 81 QRSd 90 QRS 79 QT 367 T 57 QTc 407 Conclusion SINUS RHYTHM POSSIBLE RIGHT ATRIAL ENLARGEMENT [0.25mV P-WAVE] POSSIBLE RIGHT VENTRICULAR CONDUCTION DELAY [RSR (QR) IN V1/V2] MODERATE T-WAVE ABNORMALITY, CONSIDER ANTEROLATERAL ISCHEMIA [-0.1+ mV T-WAVE IN V3-V6] ABNORMAL ECG Electronically signed by : BENITA PEREIRA, 01/07/2024 16:19:06
--- NOTE | 2024-01-07 14:45 | PC.NURSE ---
Everton GAYLE at BS for pt eval
[2024-01-07 14:53] LABS: Microscopic, Urine URINE MICROSCOPIC (MICROSCOPIC)
[2024-01-07 14:56] LABS: Basophils # 0.1 K/mm3 (0-0.2); Eosinophils # 0.2 K/mm3 (0.0-0.4); Eosinophils % 3.6 % (0.1-12.0); Hematocrit 34.5 % (37.0-47.0); Hemoglobin 11.6 g/dL (12.2-16.2); Lymphocytes # 1.2 K/mm3 (0.7-4.5); Lymphocytes % 22.5 % (10-50); Mean Corpuscular HGB Conc 33.7 g/dL (31.8-35.4); Mean Corpuscular Hemoglobin 32.2 pg (27.0-31.2); Mean Corpuscular Volume 95.7 fl (81-99); Mean Platelet Volume 9.6 fl (7.4-10.4); Monocytes # 0.3 K/mm3 (0.1-1.0); Monocytes % 5.7 % (1.7-9.3); Neutrophils # 3.5 K/mm3 (1.8-7.8); Neutrophils % 67.3 % (37.0-80.0); Platelet Count 186 K/mm3 (142-424); Red Blood Count 3.61 M/mm3 (4.20-5.40); Red Cell Distribution Width 13.4 % (11.5-17.5); White Blood Count 5.2 K/mm3 (4.8-10.8)
[2024-01-07 14:56] LABS: Appearance,Urine CLEAR (Clear); Bilirubin,Urine Negative (Negative); Blood, Urine Negative (Negative); Color,Urine YELLOW (Yellow); Glucose,Urine (UA) Negative (Negative); Ketones,Urine Negative (Negative); Leukocyte Esterase,Urine Negative (Negative); Nitrate,Urine Negative (Negative); Protein,Urine Negative (Negative); Specific Gravity, Urine 1.015 (1.005-1.030); Urobilinogen,Urine 0.2 EU/dl (0.2)
[2024-01-07 14:59] LABS: Albumin Level 3.8 g/dl (3.5-5.0); Chloride 111 mmol/L (98-107); Potassium 3.8 mmoL/L (3.5-5.1); Sodium 142 mmol/L (136-145)
[2024-01-07 15:02] LABS: Alanine Aminotransferase 11 U/L (12-78); Albumin/Globulin Ratio 1.3 (1.1-1.8); Anion Gap 6.8 mEq/L (5-15); Aspartate Amino Transferase 19 U/L (14-36); Blood Urea Nitrogen 7 mg/dl (7-17); Carbon Dioxide 28 mmol/L (22.0-30.0); Creatinine Clearance Estimated 37 mL/min (50-200); Estimated Glomerular Filt Rate 49 ml/min (>60); GFR (African American) 60 ML/MIN (>60); Globulin 2.9 g/dL (1.3-3.2); Total Protein,Serum 6.7 g/dl (6.3-8.2)
[2024-01-07 15:03] LABS: Alkaline Phosphatase 118 U/L (38-126); Bilirubin,Total 0.5 mg/dl (0.2-1.3); Glucose 87 mg/dl (74-100)
[2024-01-07] MEDS: ONDANSETRON 4MG/2ML VIAL 4 MG IV (15:05)
[2024-01-07] MEDS: KETOROLAC 30MG/ML VIAL 15 MG IV (15:05)
[2024-01-07] MEDS: ACETAMINOPHEN 1,000MG/100ML VIAL 1000 MG IV (15:05)
[2024-01-07] MEDS: LACTATED RINGERS 1000ML 1,000 ML 999 ML IV (15:05)
--- NOTE | 2024-01-07 15:13 | CT_ITS ---
PROCEDURE INFORMATION: Exam: CT Abdomen And Pelvis With Contrast Exam date and time: 01/07/2024 3:26 PM Age: 68 years old Clinical indication: Abdominal pain; Other: Pubic; Additional info: Prepubic abdominal pain TECHNIQUE: Imaging protocol: Computed tomography of the abdomen and pelvis with contrast. Radiation optimization: All CT scans at this facility use at least one of these dose optimization techniques: automated exposure control; mA and/or kV adjustment per patient size (includes targeted exams where dose is matched to clinical indication); or iterative reconstruction. Contrast material: ISOVUE; Contrast volume: 75 ml; Contrast route: IV; COMPARISON: CT ANGIO ABDOMEN PELVIS 10/28/2023 1:59 AM FINDINGS: Liver: Normal. No mass. Gallbladder and biliary ducts: Normal. No calcified stones. No ductal dilation. Pancreas: Normal. No ductal dilation. Spleen: Normal. No splenomegaly. Adrenal glands: Normal. No mass. Kidneys and ureters: Normal. No hydronephrosis. Stomach and bowel: Colonic diverticulosis without CT evidence of diverticulitis. Appendix: No evidence of appendicitis. Intraperitoneal space: Unremarkable. No free air. No significant fluid collection. Vasculature: Stents within both common iliac arteries, on the right extending to the external iliac artery. Stable 4 mm pulmonary nodule within the right lower lobe (series 3, image 7). Lymph nodes: Unremarkable. No enlarged lymph nodes. Urinary bladder: Unremarkable as visualized. Reproductive: Unremarkable as visualized. Bones/joints: Unremarkable. No acute fracture. Soft tissues: Unremarkable. IMPRESSION: Colonic diverticulosis without CT evidence of diverticulitis.
--- NOTE | 2024-01-07 15:20 | PC.NURSE ---
Pt gone to RAD via stretcher
[2024-01-07] MEDS: IOPAMIDOL-370 (76%);100ML BOTTLE 75 ML IV (15:25)
[2024-01-07] MEDS: SODIUM CHLORIDE 0.9% 10ML SYR (RAD ONLY) 10 ML IV (15:25)
--- NOTE | 2024-01-07 15:28 | PC.NURSE ---
Pt returned to room from RAD
[2024-01-07 16:02] LABS: Squamous Epithelial Cell,Urine Occasional #/hpf (0-5)
== END 2024-01-07 16:30 | disposition home or self-care (01) ==
PROVIDERS: Physician Assistant; Emergency Provider Emergency Medicine
DX: R10.30 Lower abdominal pain, unspecified (principal); R11.0 Nausea; F17.210 Nicotine dependence, cigarettes, uncomplicated; J44.9 Chronic obstructive pulmonary disease, unspecified; Z99.81 Dependence on supplemental oxygen; I73.9 Peripheral vascular disease, unspecified; I11.9 Hypertensive heart disease without heart failure; I25.10 Atherosclerotic heart disease of native coronary artery without angina pectoris; E78.5 Hyperlipidemia, unspecified; Z95.5 Presence of coronary angioplasty implant and graft
CPT/HCPCS: 74177; 80053; 81001; 85025; 93005; 96361; 96374; 96375; 99285; J0131; J1885; J2405; J7120; Q9967

== ENCOUNTER 2024-01-26 09:28 | Emergency (ER) | payer MEDICARE, SELFPAY ==
[2024-01-26] VITALS (13 sets, daily range): BP systolic 157–193; BP diastolic 69–93; PULSE 69–89; RESP 18; TEMP 36.4–36.8; O2SAT 96–100; BMI 19.3
--- NOTE | 2024-01-26 09:31 | XR_ITS ---
FINAL REPORT TECHNIQUE: Chest PA & Lateral CLINICAL HISTORY: SOB COMPARISON: 05/16/2023 FINDINGS: 2 views of the chest were performed. The heart size is normal. The mediastinum is within normal limits. The lungs are hyperinflated. Scarring is noted at the lung bases. There is no acute cardiopulmonary process. There are no pleural effusions. There is no pneumothorax. The bony thorax appears intact. IMPRESSION: No acute cardiopulmonary process. Reviewed, Interpreted and Dictated by Regino Johnson MD Transcribed by Lesley Erazo Authenticated and [facility]
--- NOTE | 2024-01-26 09:33 | ED_ITS ---
Discharge Plan Disposition Patient Disposition: Home, Self-Care Prescriptions Prescriptions: New ondansetron 4 mg tablet,disintegrating 4 mg PO Q6H PRN (Reason: nausea and vomiting) Qty: 14 0RF No Action lisinopril 5 mg tablet 5 mg PO DAILY Qty: 30 2RF clopidogrel 75 mg tablet 75 mg PO DAILY Qty: 30 2RF meclizine 25 mg tablet 25 mg PO TID PRN (Reason: dizziness) Qty: 30 0RF atorvastatin 10 mg tablet 10 mg PO HS Qty: 100 0RF melatonin 5 mg tablet 5 mg PO HS Qty: 90 0RF albuterol sulfate 90 mcg/actuation HFA aerosol inhaler 2 puff INHALATION Q4HP PRN (Reason: Shortness Of Breath) Qty: 8.5 2RF Jardiance 10 mg tablet See Rx Instructions .ROUTE .COMPLEX Qty: 30 0RF Dose Instruction: TAKE ONE TABLET BY MOUTH EVERY DAY Rx Instructions: TAKE ONE TABLET BY MOUTH EVERY DAY Trelegy Ellipta 100-62.5-25 mcg blister with device 1 inh inhalation DAILY Qty: 60 5RF Rx Instructions: INHALE 1 PUFF BY MOUTH EVERY DAY DIRECTED spironolactone 25 mg tablet See Rx Instructions .ROUTE .COMPLEX Qty: 90 3RF Dose Instruction: TAKE ONE TABLET BY MOUTH EVERY DAY Rx Instructions: TAKE ONE TABLET BY MOUTH EVERY DAY clonazepam 1 mg tablet 1 mg PO BID Qty: 60 0RF gabapentin 600 mg tablet 600 mg PO BID 30 Days Qty: 60 1RF ondansetron 8 mg tablet,disintegrating 8 mg PO Q8H PRN (Reason: nausea and vomiting) 5 Days Qty: 30 0RF citalopram 10 mg tablet 10 mg PO DAILY Rx Instructions: TAKE ONE TABLET BY MOUTH EVERY DAY pantoprazole 40 mg tablet,delayed release (DR/EC) 40 mg PO DAILY metoprolol succinate 25 mg tablet extended release 24 hr 25 mg PO DAILY Eliquis 5 mg tablet 2.5 mg PO BID ondansetron 4 mg tablet,disintegrating 4 mg PO Q6H PRN (Reason: nausea and vomiting) Qty: 10 0RF Referrals Follow up/Referrals: Stephy Morin PA [Primary Care Provider] - See instructions Activity Restrictions/Add. Instructions Additional Instructions/Restrictions: Take Tylenol and ibuprofen as needed for pain. Follow-up with primary care doctor. Please return emerged part with any new, concerning, worsening symptoms. Take Zofran as needed for nausea and vomiting. Clinical Impressions Clinical Impression: Back pain Qualifiers: Back pain location: low back pain Chronicity: acute Back pain laterality: m idline Sciatica presence: without sciatica Qualified Code(s): M54.50 - Low back pain, unspecified Instructions Patient Instructions: DI for Low Back Pain Print Language Print Language: Japanese Discharge ED Provider: Ac Strickland General Adult HPI General Chief complaint: Back Pain/Injury Stated complaint: soa Time Seen by Provider: 01/26/24 09:31 Mode of Arrival: EMS Source of Information: Patient History of Present Illness HPI narrative: This is a 68-year-old female with a history of COPD on 3 L nasal cannula who presents with nausea and low back pain. States that low back pain began last night. States that she has had 3 falls this last month and the last one was several weeks ago. Denies dysuria. Reports frequency. Denies fever. Also states that she is a bit more short of breath today than usual. Denies chest pain Related Data Home Medications ?Medication ?Instructions ?Recorded ?Confirmed apixaban 5 mg tablet (Eliquis) 2.5 mg PO BID atrial fib 11/16/23 12/12/23 citalopram 10 mg tablet 10 mg PO DAILY 11/16/23 12/12/23 metoprolol succinate 25 mg 25 mg PO DAILY 11/16/23 12/12/23 tablet,extended release 24 hr pantoprazole 40 mg tablet,delayed 40 mg PO DAILY 11/16/23 12/12/23 release Previous Rx's ?Medication ?Instructions ?Recorded atorvastatin 10 mg tablet 10 mg PO HS Cholesterol #100 tabs 10/18/23 melatonin 5 mg tablet 5 mg PO HS #90 tabs 11/06/23 clopidogrel 75 mg tablet 75 mg PO DAILY #30 tabs 12/06/23 lisinopril 5 mg tablet 5 mg PO DAILY #30 tabs 12/06/23 albuterol sulfate 90 mcg/actuation 2 puff inhalation Q4HP PRN 12/08/23 aerosol inhaler Shortness Of Breath #8.5 grams meclizine 25 mg tablet 25 mg PO TID PRN dizziness #30 tabs 12/12/23 empagliflozin 10 mg tablet See Rx Instructions .Route 01/02/24 (Jardiance) .COMPLEX #30 tabs fluticasone fur. 100 mcg-umeclid 1 inh inhalation DAILY #60 ea 01/05/24 62.5 mcg-vilant 25 mcg inhalat.powder (Trelegy Ellipta) ondansetron 4 mg disintegrating 4 mg PO Q6H PRN nausea and 01/07/24 tablet vomiting #10 tabs spironolactone 25 mg tablet See Rx Instructions .Route 01/10/24 .COMPLEX #90 tabs clonazepam 1 mg tablet 1 mg PO BID #60 tabs 01/15/24 gabapentin 600 mg tablet 600 mg PO BID 30 days #60 tabs 01/15/24 ondansetron 8 mg disintegrating 8 mg PO Q8H PRN nausea and 01/25/24 tablet vomiting 5 days #30 tabs ondansetron 4 mg disintegrating 4 mg PO Q6H PRN nausea and 01/26/24 tablet vomiting #14 tabs Allergies Allergy/AdvReac Type Severity Reaction Status Date / Time levofloxacin Allergy Intermediate blisters Verified 01/26/24 09:42 in mouth, diarrhea Sulfa (Sulfonamide Allergy Unknown Verified 01/26/24 09:42 Antibiotics) [facility] Disclaimer: The information contained in this section may have been updated after the patient was seen, as this information can be updated by other users. Medical History Pneumonia Decreased muscle strength Unsteady gait Respiratory failure with hypoxia and hypercapnia COPD exacerbation Encounter for screening for malignant neoplasm of lung Family history of asthma COPD mixed type Smoking greater than 30 pack years SOB (shortness of breath) on exertion Chronic respiratory failure with hypoxia O2 dependent Presence of arterial stent H/O Hampton's palsy Sinus tachycardia Hypertrophic obstructive cardiomyopathy (2019) Cardiac cath Vitamin D deficiency Hampton's palsy Depression PTSD (post-traumatic stress disorder) Insomnia Chronic pain COPD exacerbation Pulmonary nodule CAD (coronary artery disease) HLD (hyperlipidemia) PAD (peripheral artery disease) HTN (hypertension) Anxiety Lung nodule seen on imaging study Surgical History Appendicolith S/P peripheral artery angioplasty with stent placement Family History Other Family history of hypertension Social History Smoking Status: Current every day smoker tobacco type: cigarettes packs per day: 1 second hand exposure: No alcohol intake: never substance use type: denies use current occupational status: retired Travel in the last 8 weeks: None household members: children and none housing: house lives independently: No ROS Obtained: Yes All systems reviewed & no additional complaints except as documented Physical Exam General General appearance: alert and in no apparent distress Eye Eye exam: Present normal appearance, PERRL and EOMI Respiratory Respiratory exam: Present normal lung sounds bilaterally; Absent respiratory distress Cardiovascular Cardiovascular exam: Present regular rate and normal rhythm Abdominal Exam Abdominal exam: Present soft and distention; Absent tenderness, guarding or rebound Extremities Exam Extremities exam: Present normal inspection Back Exam Back exam: Present normal inspection; Absent tenderness, CVA tenderness (R) or CVA tenderness (L) Neurological Exam Neurological exam: Present alert and oriented X3 Skin Skin exam: Present warm and dry Medical Decision Making Medical Records Medical records reviewed: Yes I reviewed the patient's medical records. MR Comment: Emergency department visit from 01/2024 notable for patient's past medical history of COPD and presentation with nausea and suprapubic abdominal pain [place] Inquiry Pt receiving controlled substance: No Vital Signs: 01/26/24 09:31 01/26/24 09:35 01/26/24 10:00 Temperature 97.5 F L Temperature Source Oral Pulse Rate 73 70 Pulse Rate [Left] 70 Respiratory Rate 18 Blood Pressure 179/70 H 177/75 H Blood Pressure [Right Arm] 187/73 H Blood Pressure Mean [Right Arm] 111 Blood Pressure Source [Right Arm] Automatic Cuff Blood Pressure Position [Right Arm] Sitting 02 Sat by Pulse Oximetry 98 100 100 Oxygen Delivery Method Nasal Cannula Nasal Cannula Nasal Cannula Oxygen Flow Rate (LPM) 3 01/26/24 10:30 01/26/24 11:00 01/26/24 11:30 Temperature Temperature Source Pulse Rate 71 70 73 Pulse Rate [Left] Respiratory Rate Blood Pressure 172/69 H 177/81 H 189/79 H Blood Pressure [Right Arm] Blood Pressure Mean [Right Arm] Blood Pressure Source [Right Arm] Blood Pressure Position [Right Arm] 02 Sat by Pulse Oximetry 99 99 99 Oxygen Delivery Method Nasal Cannula Nasal Cannula Nasal Cannula Oxygen Flow Rate (LPM) 3 3 01/26/24 12:00 01/26/24 13:51 01/26/24 14:00 Temperature Temperature Source Pulse Rate 69 89 76 Pulse Rate [Left] Respiratory Rate Blood Pressure 168/76 H 182/81 H 157/81 H Blood Pressure [Right Arm] Blood Pressure Mean [Right Arm] Blood Pressure Source [Right Arm] Blood Pressure Position [Right Arm] 02 Sat by Pulse Oximetry 99 96 100 Oxygen Delivery Method Nasal Cannula Nasal Cannula Nasal Cannula Oxygen Flow Rate (LPM) 01/26/24 14:30 01/26/24 15:00 01/26/24 15:30 Temperature Temperature Source Pulse Rate 77 78 88 Pulse Rate [Left] Respiratory Rate Blood Pressure 189/78 H 193/93 H 181/78 H Blood Pressure [Right Arm] Blood Pressure Mean [Right Arm] Blood Pressure Source [Right Arm] Blood Pressure Position [Right Arm] 02 Sat by Pulse Oximetry 98 99 99 Oxygen Delivery Method Nasal Cannula Room Air Nasal Cannula Oxygen Flow Rate (LPM) Lab Data Lab Results 01/26/24 09:30: WBC 6.3, RBC 4.01 L, Hgb 12.3, Hct 39.8, MCV 99.3 H, MCH 30.8, M CHC 31.0 L, RDW 12.6, Plt Count 206, MPV 9.5, Neut % (Auto) 69.7, Lymph % (Auto) 20.0, [place] % (Auto) 5.3, Eos % (Auto) 4.2, Baso % (Auto) 0.8, Neut # (Auto) 4.4, Lymph # (Auto) 1.3, [place] # (Auto) 0.3, Eos # (Auto) 0.3, Baso # (Auto) 0.1, Sodium 141, Potassium 4.1, Chloride 109 H, Carbon Dioxide 31 H, Anion Gap 5.1, BUN 13, Creatinine 0.80, Estimated Creat Clear 40, Estimated GFR 71, Est GFR ( Amer) 86, Glucose 90, Calcium 9.4, Total Bilirubin 0.6, AST 23, ALT 13, Alkaline Phosphatase 98, Troponin I < 0.01, Total Protein 7.2, Albumin 3.8, G lobulin 3.4 H, Albumin/Globulin Ratio 1.1 01/26/24 09:40: VBG pH 7.35, VBG pCO2 49.3, VBG pO2 127.1 H, VBG HCO3 26.5, VBG Total CO2 28.1 H, VBG O2 Saturation 98.5 H, VBG Base Excess 0.9, VBG Lactic Acid 1.1 01/26/24 13:55: Troponin I < 0.01, Urine Color Yellow, Urine Appearance Clear, Urine pH 6.0, Ur Specific [place] 1.020, Urine Protein Negative, Urine Glucose (UA) 3+, Urine Ketones 1+, Urine Blood 3+, Urine Nitrate Negative, Urine Bilirubin Negative, Urine Urobilinogen 0.2, Ur Leukocyte Esterase Negative, Urine RBC None, Urine WBC 5-10, Ur Squamous Epith Cells 5-10, Urine Bacteria 1+ 01/26/24 09:30 01/26/24 09:30 Orders (Tests/Meds): ED MEDICATIONS Generic Name Dose Route Start Last Admin Trade Name Freq PRN Reason Stop Dose Admin Hydromorphone HCl 0.25 mg 01/26/24 09:31 Hydromorphone 2mg/Ml Syringe IV 02/25/24 09:30 Q2HP PRN Severe Pain (7-10) Discontinued Medications Generic Name Dose Route Start Last Admin Trade Name Freq PRN Reason Stop Dose Admin Albuterol/Ipratropium 3 ml 01/26/24 13:56 01/26/24 14:58 Ipratropium/Albuterol 3 Ml Neb IH 01/26/24 13:57 3 ml ONCE ONE Administration Ondansetron HCl 4 mg 01/26/24 09:31 01/26/24 09:56 Ondansetron 4mg/2ml Vial IV 01/26/24 09:32 4 mg ONCE ONE Administration ORDERS Category Date Time Status CT abdomen pelvis wo con Stat Cat Scan 01/26/24 14:27 Taken Chest XR 2 view (NOT portable) [XR chest 2V] Stat Exams 01/26/24 09:31 Completed CBC w/Auto Diff [Complete Blood Count Auto Diff] Stat Lab 01/26/24 09:30 Completed CMP [Comprehensive Metabolic Panel] Stat Lab 01/26/24 09:30 Completed Troponin I Q3H Lab 01/26/24 09:30 Completed Troponin I Q3H Lab 01/26/24 13:55 Completed Urinalysis and Microscopic Stat Lab 01/26/24 13:55 Completed VBG [Venous Blood Gas] Stat RT 01/26/24 09:30 Stop Req VBG [Venous Blood Gas] Stat RT 01/26/24 09:40 Completed ECG Data Tracing #1: I reviewed this ECG and interpreted as documented below: Normal sinus rhythm at a rate of 71, QTc 417, normal axis, no STEMI Medical Decision Narrative: This is a 68-year-old female with a history of COPD on 3 L nasal cannula and recurrent UTIs who presents with lower back pain and nausea since last night. On arrival, patient afebrile and hemodynamically stable, nontoxic-appearing. Differential diagnose includes but is not limited to UTI, pyelonephritis, mechanical back pain. Had no midline spinal tenderness. Initial management included Dilaudid and Zofran. Initial workup included CBC, CMP, VBG, troponin, urinalysis, chest x-ray. CBC unremarkable, unremarkable CMP, troponin negative on arrival and at 3 hours, no evidence of UTI on urinalysis, no acute cardiopulmonary pathology. UA revealed 2+ blood and so CT abdomen pelvis without IV contrast was obtained to evaluate for urolithiasis. CT scan was independently interpreted by me revealing of tiny nonobstructing left-sided nephrolithiasis. This would not be the cause of patient's symptoms. On reevaluation, the patient in stable condition with improvement in symptoms and appropriate for discharge at this time. Prescribe Zofran for outpatient management and nausea. Discharged in stable condition. Critical Care Critical Care Time Critical Care Time: No
--- NOTE | 2024-01-26 09:34 | ECG_ITS ---
APPROVED REPORT Exam: Resting ECG HR:71 bpm ECG Measurements Heart Rate 71 AXES TX 181 P 88 QRSd 78 QRS 87 QT 394 T 14 QTc 417 Conclusion SINUS RHYTHM NONSPECIFIC ST & T-WAVE ABNORMALITY BORDERLINE ECG Limited by artifact Electronically signed by : Ac Strickland, 01/26/2024 09:56:52
[2024-01-26 09:44] LABS: Lactate Venous 1.1 mmol/L (0.4-2.0); VBG Base Excess 0.9 mmol/L (-2.4-2.3); VBG HCO3 26.5 mmol/L (23-30); VBG Oxygen Saturation 98.5 % (50-70); VBG PCO2 49.3 mmol/L (35-51); VBG PH 7.35 mmol/L (7.31-7.41); VBG PO2 127.1 mmol/L (28-40); VBG Total CO2 28.1 mmol/L (23-27)
[2024-01-26 09:56] LABS: Alanine Aminotransferase 13 U/L (12-78); Albumin Level 3.8 g/dl (3.5-5.0); Albumin/Globulin Ratio 1.1 (1.1-1.8); Alkaline Phosphatase 98 U/L (38-126); Anion Gap 5.1 mEq/L (5-15); Aspartate Amino Transferase 23 U/L (14-36); Basophils # 0.1 K/mm3 (0-0.2); Basophils % 0.8 % (0.1-2.0); Bilirubin,Total 0.6 mg/dl (0.2-1.3); Blood Urea Nitrogen 13 mg/dl (7-17); Calcium 9.4 mg/dl (8.4-10.2); Carbon Dioxide 31 mmol/L (22.0-30.0); Chloride 109 mmol/L (98-107); Creatinine Clearance Estimated 40 mL/min (50-200); Eosinophils # 0.3 K/mm3 (0.0-0.4); Eosinophils % 4.2 % (0.1-12.0); Estimated Glomerular Filt Rate 71 ml/min (>60); GFR (African American) 86 ML/MIN (>60); Globulin 3.4 g/dL (1.3-3.2); Glucose 90 mg/dl (74-100); Hematocrit 39.8 % (37.0-47.0); Hemoglobin 12.3 g/dL (12.2-16.2); Lymphocytes # 1.3 K/mm3 (0.7-4.5); Mean Corpuscular Hemoglobin 30.8 pg (27.0-31.2); Mean Corpuscular Volume 99.3 fl (81-99); Mean Platelet Volume 9.5 fl (7.4-10.4); Monocytes # 0.3 K/mm3 (0.1-1.0); Monocytes % 5.3 % (1.7-9.3); Neutrophils # 4.4 K/mm3 (1.8-7.8); Neutrophils % 69.7 % (37.0-80.0); Platelet Count 206 K/mm3 (142-424); Potassium 4.1 mmoL/L (3.5-5.1); Red Blood Count 4.01 M/mm3 (4.20-5.40); Red Cell Distribution Width 12.6 % (11.5-17.5); Sodium 141 mmol/L (136-145); Total Protein,Serum 7.2 g/dl (6.3-8.2); White Blood Count 6.3 K/mm3 (4.8-10.8)
[2024-01-26] MEDS: ONDANSETRON 4MG/2ML VIAL 4 MG IV (09:56)
--- NOTE | 2024-01-26 09:59 | PC.NURSE ---
I rounded on the pt and took her a warm blanket. no needs voiced. call ybarra in reach.
[2024-01-26 10:17] LABS: Troponin I < 0.01 ng/ml (0.00-0.034)
[2024-01-26 13:58] LABS: Microscopic, Urine URINE MICROSCOPIC (MICROSCOPIC)
[2024-01-26 14:21] LABS: Appearance,Urine CLEAR (Clear); Bilirubin,Urine Negative (Negative); Blood, Urine 3+ (Negative); Color,Urine YELLOW (Yellow); Glucose,Urine (UA) 3+ (Negative); Ketones,Urine 1+ (Negative); Leukocyte Esterase,Urine Negative (Negative); Nitrate,Urine Negative (Negative); Protein,Urine Negative (Negative); Urobilinogen,Urine 0.2 EU/dl (0.2)
--- NOTE | 2024-01-26 14:27 | CT_ITS ---
FINAL REPORT TECHNIQUE: Axial images through the abdomen and pelvis were performed without contrast. This study was performed with techniques to keep radiation doses as low as reasonably achievable, (ALARA). Individualized dose reduction techniques using automated exposure control or adjustment of mA and/or kV according to the patient's size were employed. CLINICAL HISTORY: eval kidney stone COMPARISON: 01/07/2024 FINDINGS: Abdomen: There is chronic scarring at the bases. The liver parenchyma is homogeneous. The gallbladder is present. The spleen, pancreas, and adrenals are unremarkable. There is a tiny nonobstructing stone in the superior pole of the left kidney. Bilateral iliac artery stents are present. Pelvis: The urinary bladder is incompletely distended. There is scattered diverticulosis throughout the descending and sigmoid colon. The appendix is not visualized. There is no pelvic mass or inflammation. IMPRESSION: Tiny nonobstructing left renal stone. Reviewed, Interpreted and Dictated by Regino Johnson MD Transcribed by Genet Riley Authenticated and [facility]
[2024-01-26 14:35] LABS: Bacteria,Urine 1+ /lpf; Troponin I < 0.01 ng/ml (0.00-0.034)
[2024-01-26] MEDS: IPRATROPIUM/ALBUTEROL 3 ML NEB IH (14:58)
== END 2024-01-26 16:29 | disposition home or self-care (01) ==
PROVIDERS: Emergency Provider Student in an Organized Health Care Education/Training Program; PCP Physician Assistant
DX: M54.50 Low back pain, unspecified (principal); J44.9 Chronic obstructive pulmonary disease, unspecified; R06.02 Shortness of breath; R11.0 Nausea; F17.210 Nicotine dependence, cigarettes, uncomplicated; I10 Essential (primary) hypertension; E78.5 Hyperlipidemia, unspecified
CPT/HCPCS: 71046; 74176; 80053; 81001; 82803; 84484; 85025; 93005; 96374; 99285; J2405; J7620

== ENCOUNTER 2024-02-18 07:58 | Emergency (ER) | payer MEDICARE, SELFPAY ==
[2024-02-18] VITALS (11 sets, daily range): BP systolic 90–198; BP diastolic 50–102; PULSE 72–104; RESP 18–26; TEMP 36.5–36.8; O2SAT 91–99; BMI 16.5
--- NOTE | 2024-02-18 08:13 | ECG_ITS ---
APPROVED REPORT Exam: Resting ECG HR:96 bpm ECG Measurements Heart Rate 96 AXES IN 156 P 82 QRSd 73 QRS 77 QT 262 T -42 QTc 315 Conclusion SINUS RHYTHM POSSIBLE RIGHT ATRIAL ENLARGEMENT [0.25mV P-WAVE] POSSIBLE RIGHT VENTRICULAR CONDUCTION DELAY [RSR (QR) IN V1/V2] NONSPECIFIC ST & T-WAVE ABNORMALITY ABNORMAL ECG UNCONFIRMED REPORT Electronically signed by : OSMANI SARKAR, 02/19/2024 04:28:38
--- NOTE | 2024-02-18 08:21 | XR_ITS ---
PROCEDURE INFORMATION: Exam: XR Chest Exam date and time: 02/18/2024 9:41 AM Age: 68 years old Clinical indication: Cough TECHNIQUE: Imaging protocol: Radiologic exam of the chest. Views: 1 view. COMPARISON: CR XR CHEST 2V 01/26/2024 9:32 AM FINDINGS: Lungs: Hyperexpanded lung graham consistent with COPD. No focal consolidation. Pleural spaces: Unremarkable. No pleural effusion. No pneumothorax. Heart/Mediastinum: Unremarkable. No cardiomegaly. Bones/joints: Unremarkable. IMPRESSION: Hyperexpanded lung graham consistent with COPD. No focal consolidation.
[2024-02-18] MEDS: BELLADONNA ALKALOIDS 60 ML ML PO (08:30)
[2024-02-18] MEDS: clonazePAM 0.5MG TABLET 1 MG PO (08:30)
[2024-02-18] MEDS: ONDANSETRON 4MG/2ML VIAL 4 MG IV (08:30)
--- NOTE | 2024-02-18 08:32 | PC.NURSE ---
Notified RT of VBG
[2024-02-18 08:36] LABS: VBG Base Excess 0.5 mmol/L (-2.4-2.3); VBG HCO3 25.4 mmol/L (23-30); VBG Oxygen Saturation 85.8 % (50-70); VBG PCO2 42.8 mmol/L (35-51); VBG PH 7.39 mmol/L (7.31-7.41); VBG PO2 49.3 mmol/L (28-40); VBG Total CO2 26.8 mmol/L (23-27)
[2024-02-18 08:38] LABS: Lactate Venous 2.1 mmol/L (0.4-2.0)
[2024-02-18 08:44] LABS: Basophils # 0.1 K/mm3 (0-0.2); Basophils % 1.4 % (0.1-2.0); Eosinophils # 0.2 K/mm3 (0.0-0.4); Eosinophils % 3.5 % (0.1-12.0); Hematocrit 41.8 % (37.0-47.0); Hemoglobin 12.8 g/dL (12.2-16.2); Lymphocytes # 1.3 K/mm3 (0.7-4.5); Lymphocytes % 22.5 % (10-50); Mean Corpuscular HGB Conc 30.8 g/dL (31.8-35.4); Mean Corpuscular Hemoglobin 29.9 pg (27.0-31.2); Mean Corpuscular Volume 97.1 fl (81-99); Mean Platelet Volume 9.5 fl (7.4-10.4); Monocytes # 0.3 K/mm3 (0.1-1.0); Monocytes % 5.6 % (1.7-9.3); Neutrophils # 3.8 K/mm3 (1.8-7.8); Platelet Count 234 K/mm3 (142-424); Red Cell Distribution Width 12.9 % (11.5-17.5); White Blood Count 5.7 K/mm3 (4.8-10.8)
[2024-02-18 08:56] LABS: Lipase 70 U/L (23-300)
[2024-02-18] MEDS: RINGERS SOLUTION,LACTATED 500 ML 999 ML IV (09:06)
[2024-02-18 09:10] LABS: Troponin I < 0.01 ng/ml (0.00-0.034)
--- NOTE | 2024-02-18 09:16 | HMH.EDGENADL ---
Discharge Plan Disposition Patient Disposition: Home, Self-Care Condition: Good Prescriptions Prescriptions: New ondansetron HCl 4 mg tablet 4 mg PO Q8H 5 Days Qty: 15 0RF No Action lisinopril 5 mg tablet 5 mg PO DAILY Qty: 30 2RF clopidogrel 75 mg tablet 75 mg PO DAILY Qty: 30 2RF meclizine 25 mg tablet 25 mg PO TID PRN (Reason: dizziness) Qty: 30 0RF atorvastatin 10 mg tablet 10 mg PO HS Qty: 100 0RF melatonin 5 mg tablet 5 mg PO HS Qty: 90 0RF albuterol sulfate 90 mcg/actuation HFA aerosol inhaler 2 puff INHALATION Q4HP PRN (Reason: Shortness Of Breath) Qty: 8.5 2RF spironolactone 25 mg tablet See Rx Instructions .ROUTE .COMPLEX Qty: 90 3RF Dose Instruction: TAKE ONE TABLET BY MOUTH EVERY DAY Rx Instructions: TAKE ONE TABLET BY MOUTH EVERY DAY gabapentin 600 mg tablet 600 mg PO BID 30 Days Qty: 60 1RF ondansetron 8 mg tablet,disintegrating 8 mg PO Q8H PRN (Reason: nausea and vomiting) 5 Days Qty: 30 0RF metoprolol succinate 25 mg tablet extended release 24 hr See Rx Instructions .ROUTE .COMPLEX Qty: 90 0RF Dose Instruction: TAKE ONE TABLET BY MOUTH EVERY DAY FOR HIGH BLOOD PRESSURE Rx Instructions: TAKE ONE TABLET BY MOUTH EVERY DAY FOR HIGH BLOOD PRESSURE Jardiance 10 mg tablet See Rx Instructions .ROUTE .COMPLEX Qty: 90 0RF Dose Instruction: TAKE ONE TABLET BY MOUTH EVERY DAY Rx Instructions: TAKE ONE TABLET BY MOUTH EVERY DAY clonazepam 1 mg tablet 1 mg PO BID Qty: 60 0RF Trelegy Ellipta 100-62.5-25 mcg blister with device 1 inh inhalation DAILY Qty: 60 5RF Rx Instructions: INHALE 1 PUFF BY MOUTH EVERY DAY DIRECTED citalopram 10 mg tablet 10 mg PO DAILY Rx Instructions: TAKE ONE TABLET BY MOUTH EVERY DAY pantoprazole 40 mg tablet,delayed release (DR/EC) 40 mg PO DAILY Eliquis 5 mg tablet 2.5 mg PO BID ondansetron 4 mg tablet,disintegrating 4 mg PO Q6H PRN (Reason: nausea and vomiting) Qty: 10 0RF ondansetron 4 mg tablet,disintegrating 4 mg PO Q6H PRN (Reason: nausea and vomiting) Qty: 14 0RF alum-mag hydroxide-simeth [Maalox Advanced] 200-200-20 mg/5 mL suspension 5 ml PO Q3H PRN (Reason: dyspepsia) Qty: 3000 0RF Referrals Follow up/Referrals: Provider,Referral, MD [Primary Care Provider] - See instructions Clinical Impressions Clinical Impression: Anxiety, Nausea, Cough Print Language Print Language: Japanese Discharge ED Provider: Anuel Guerra General Adult HPI General Chief complaint: Recheck/Abnormal Lab/Rx Stated complaint: Nausea x1 month Time Seen by Provider: 02/18/24 08:02 Mode of Arrival: EMS Source of Information: Patient and EMS Limitations: No Limitations Description of Symptoms (Recalled from ER Triage Doc. by RN): chest burning,shortness of breath History of Present Illness HPI narrative: 68yoF patient presents with a chief complaint of anxiety, coughing and a reported burning sensation in her stomach. She reports spitting up hot substances, which she describes as looking like saliva. She has a past medical history of chronic obstructive pulmonary disease (COPD), stents in her heart and legs, and is on 3 liters of oxygen at home. She denies any recent exposure to sick individuals. The patient experiences a burning sensation in stomach. She denies any pain during urination. She also reports a lack of appetite and feeling anxious, for which she takes medication. Denies other symptoms/complaints at this time. Related Data Home Medications ?Medication ?Instructions ?Recorded ?Confirmed apixaban 5 mg tablet (Eliquis) 2.5 mg PO BID atrial fib 11/16/23 12/12/23 citalopram 10 mg tablet 10 mg PO DAILY 11/16/23 12/12/23 pantoprazole 40 mg tablet,delayed 40 mg PO DAILY 11/16/23 12/12/23 release Previous Rx's ?Medication ?Instructions ?Recorded atorvastatin 10 mg tablet 10 mg PO HS Cholesterol #100 tabs 10/18/23 melatonin 5 mg tablet 5 mg PO HS #90 tabs 11/06/23 clopidogrel 75 mg tablet 75 mg PO DAILY #30 tabs 12/06/23 lisinopril 5 mg tablet 5 mg PO DAILY #30 tabs 12/06/23 albuterol sulfate 90 mcg/actuation 2 puff inhalation Q4HP PRN 12/08/23 aerosol inhaler Shortness Of Breath #8.5 grams meclizine 25 mg tablet 25 mg PO TID PRN dizziness #30 tabs 12/12/23 ondansetron 4 mg disintegrating 4 mg PO Q6H PRN nausea and 01/07/24 tablet vomiting #10 tabs spironolactone 25 mg tablet See Rx Instructions .Route 01/10/24 .COMPLEX #90 tabs gabapentin 600 mg tablet 600 mg PO BID 30 days #60 tabs 01/15/24 ondansetron 8 mg disintegrating 8 mg PO Q8H PRN nausea and 01/25/24 tablet vomiting 5 days #30 tabs ondansetron 4 mg disintegrating 4 mg PO Q6H PRN nausea and 01/26/24 tablet vomiting #14 tabs aluminum-mag hydroxide-simethicone 5 ml PO Q3H PRN dyspepsia #3,000 mL 02/05/24 200 mg-200 mg-20 mg/5 mL oral susp (Maalox Advanced) metoprolol succinate 25 mg See Rx Instructions .Route 02/07/24 tablet,extended release 24 hr .COMPLEX #90 tabs clonazepam 1 mg tablet 1 mg PO BID #60 tabs 02/08/24 empagliflozin 10 mg tablet See Rx Instructions .Route 02/08/24 (Jardiance) .COMPLEX #90 tabs fluticasone fur. 100 mcg-umeclid 1 inh inhalation DAILY #60 ea 02/09/24 62.5 mcg-vilant 25 mcg inhalat.powder (Trelegy Ellipta) ondansetron HCl 4 mg tablet 4 mg PO Q8H 5 days #15 tabs 02/18/24 Allergies Allergy/AdvReac Type Severity Reaction Status Date / Time levofloxacin Allergy Intermediate blisters Verified 01/26/24 09:42 in mouth, diarrhea Sulfa (Sulfonamide Allergy Unknown Verified 01/26/24 09:42 Antibiotics) [facility] Disclaimer: The information contained in this section may have been updated after the patient was seen, as this information can be updated by other users. Medical History Pneumonia Decreased muscle strength Unsteady gait Respiratory failure with hypoxia and hypercapnia COPD exacerbation Encounter for screening for malignant neoplasm of lung Family history of asthma COPD mixed type Smoking greater than 30 pack years SOB (shortness of breath) on exertion Chronic respiratory failure with hypoxia Presence of arterial stent H/O Hampton's palsy Sinus tachycardia Hypertrophic obstructive cardiomyopathy Vitamin D deficiency Hampton's palsy Depression PTSD (post-traumatic stress disorder) Insomnia Chronic pain COPD exacerbation Pulmonary nodule CAD (coronary artery disease) HLD (hyperlipidemia) PAD (peripheral artery disease) HTN (hypertension) Anxiety Lung nodule seen on imaging study Surgical History Appendicolith S/P peripheral artery angioplasty with stent placement Family History Other Family history of hypertension Social History Smoking Status: Current every day smoker tobacco type: cigarettes packs per day: 1 second hand exposure: No alcohol intake: never substance use type: denies use current occupational status: retired Travel in the last 8 weeks: None household members: children and none housing: house lives independently: No ROS Obtained: Yes Systems reviewed as appropriate & no additional complaints except as documented Physical Exam General General appearance: alert and in no apparent distress Head Head exam: atraumatic, normocephalic and normal inspection Eye Eye exam: Present normal appearance and EOMI ENT ENT exam: Present normal exam, normal oropharynx, mucous membranes moist and normal external ear exam Neck Neck exam: Present normal inspection, full ROM, trachea midline, meningismus and lymphadenopathy Chest Chest inspection: Present normal inspection and symmetric chest wall rise; Absent tenderness Respiratory Respiratory exam: Present normal lung sounds bilaterally; Absent respiratory distress, wheezes, stridor, accessory muscle use or prolonged expiratory phase Cardiovascular Cardiovascular exam: Present regular rate, normal rhythm and normal heart sounds; Absent JVD Abdominal Exam Abdominal exam: Present soft and normal bowel sounds; Absent distention, tenderness, guarding or rebound Extremities Exam Extremities exam: Present normal inspection, full ROM and normal capillary refill Back Exam Back exam: Present normal inspection Neurological Exam Neurological exam: Present alert and oriented X3 Psychiatric Psychiatric exam: Present normal affect and normal mood Skin Skin exam: Present warm, dry, intact and normal color Lymphatic Lymphatic Findings: no adenopathy Medical Decision Making Medical Records Medical records reviewed: Yes I reviewed the patient's medical records. [place] Inquiry Pt receiving controlled substance: No Vital Signs: 02/18/24 07:58 02/18/24 08:07 02/18/24 08:25 Temperature 97.7 F Temperature Source Oral Pulse Rate 103 H 100 H Pulse Rate [Right] 104 H Respiratory Rate 26 H Blood Pressure 198/102 H 173/98 H Blood Pressure [Right Arm] 198/102 H Blood Pressure Mean Blood Pressure Mean [Right Arm] 134 02 Sat by Pulse Oximetry 91 L 92 L 99 Oxygen Delivery Method Room Air Nasal Cannula Nasal Cannula Oxygen Flow Rate (LPM) 02/18/24 08:30 02/18/24 09:00 02/18/24 09:30 Temperature Temperature Source Pulse Rate 77 74 76 Pulse Rate [Right] Respiratory Rate Blood Pressure 157/75 H 143/69 H 90/50 L Blood Pressure [Right Arm] Blood Pressure Mean 93 63 Blood Pressure Mean [Right Arm] 02 Sat by Pulse Oximetry 98 98 99 Oxygen Delivery Method Nasal Cannula Room Air Room Air Oxygen Flow Rate (LPM) 02/18/24 10:13 Temperature Temperature Source Pulse Rate 103 H Pulse Rate [Right] Respiratory Rate Blood Pressure 105/53 L Blood Pressure [Right Arm] Blood Pressure Mean Blood Pressure Mean [Right Arm] 02 Sat by Pulse Oximetry 95 Oxygen Delivery Method Nasal Cannula Oxygen Flow Rate (LPM) 2 Lab Data Lab Results 02/18/24 08:25: WBC 5.7, RBC 4.30, Hgb 12.8, Hct 41.8, MCV 97.1, MCH 29.9, MCHC 30.8 L, RDW 12.9, Plt Count 234, MPV 9.5, Neut % (Auto) 67.0, Lymph % (Auto) 22.5, [place] % (Auto) 5.6, Eos % (Auto) 3.5, Baso % (Auto) 1.4, Neut # (Auto) 3.8, Lymph # (Auto) 1.3, [place] # (Auto) 0.3, Eos # (Auto) 0.2, Baso # (Auto) 0.1, Sodium 142, Potassium 3.7, Chloride 109 H, Carbon Dioxide 29, Anion Gap 7.7, BUN 16, Creatinine 0.90, Estimated Creat Clear 34, Estimated GFR 62, Est GFR ( Amer) 75, Glucose 109 H, Calcium 9.9, Total Bilirubin 0.7, AST 26, ALT 19, Alkaline Phosphatase 101, Troponin I < 0.01, Total Protein 7.5, Albumin 4.2, Globulin 3.3 H, Albumin/Globulin Ratio 1.3, Lipase 70 02/18/24 08:28: VBG pH 7.39, VBG pCO2 42.8, VBG pO2 49.3 H, VBG HCO3 25.4, VBG Total CO2 26.8, VBG O2 Saturation 85.8 H, VBG Base Excess 0.5, VBG Lactic Acid 2.1 H 02/18/24 08:25 02/18/24 08:25 Orders (Tests/Meds): ED MEDICATIONS Discontinued Medications Generic Name Dose Route Start Last Admin Trade Name Freq PRN Reason Stop Dose Admin Belladonna Alkaloids 60 ml 02/18/24 08:19 02/18/24 08:30 Belladonna Alkaloids 60 Ml Ml PO 02/18/24 08:20 60 ml ONCE ONE Administration Clonazepam 1 mg 02/18/24 08:19 02/18/24 08:30 Clonazepam 0.5mg Tablet PO 02/18/24 08:20 1 mg ONCE ONE Administration Lactated Ringer's 500 mls @ 999 mls/hr 02/18/24 08:52 02/18/24 09:06 Lactated Ringer's 500ml IV 02/18/24 09:22 999 mls/hr .Q31M ONE Administration Ondansetron HCl 4 mg 02/18/24 08:19 02/18/24 08:30 Ondansetron 4mg/2ml Vial IV 02/18/24 08:20 4 mg ONCE ONE Administration ORDERS Category Date Time Status XR chest portable Stat Exams 02/18/24 08:21 Taken CBC w/Auto Diff [Complete Blood Count Auto Diff] Stat Lab 02/18/24 08:25 Completed CMP [Comprehensive Metabolic Panel] Stat Lab 02/18/24 08:25 Completed Lactate Venous Stat Lab 02/18/24 08:25 Received Lipase Stat Lab 02/18/24 08:25 Completed Troponin I Q3H Lab 02/18/24 08:25 Completed Troponin I Q3H Lab 02/18/24 11:30 Ordered VBG [Venous Blood Gas] Stat RT 02/18/24 08:28 Completed ECG Data Tracing #1: Normal sinus rhythm, normal axis, normal intervals, no noted ST elevation ECG initial impression date: 02/18/24 ECG initial impression time: 08:13 Medical Decision Narrative: Patient with history and exam per above presenting for evaluation of anxiety, cough, reported burning in stomach Diagnoses considered include electrolyte abnormality, viral syndrome, anxiety, ACS, COPD exacerbation, pneumonia ED workup and treatment included: As above Labs were independently interpreted by me, significant for negative troponin, CBC and CMP grossly nonactionable Imaging was independently visualized and interpreted by me, significant for no acute cardiopulmonary process noted Please refer to radiology report for full details. My clinical impression at this time is most consistent with viral syndrome, anxiety. On reassessment patient well-appearing, states she is feeling okay. At this time medically clear for discharge home with outpatient follow-up. Patient is agreeable to this plan. She has requested medication prescription for nausea, will prescribe Zofran. Given instructions to return to ED if symptoms worsen. I discussed my clinical impression with patient and answered all questions. At this time, the evidence for any other entities in the differential is insufficient to warrant any further testing or ED observation. This was explained to the patient. The patient was advised that persistent or worsening symptoms require further evaluation. Critical Care Critical Care Time Critical Care Time: No
--- NOTE | 2024-02-18 09:48 | PC.NURSE ---
RAD at BS
--- NOTE | 2024-02-18 10:15 | PC.NURSE ---
Rounded on pt. Warm blanket provided. No other needs voiced at this time.
[2024-02-18 10:19] LABS: Albumin Level 4.2 g/dl (3.5-5.0); Chloride 109 mmol/L (98-107); Sodium 142 mmol/L (136-145)
[2024-02-18 10:20] LABS: Potassium 3.7 mmoL/L (3.5-5.1)
[2024-02-18 10:22] LABS: Alanine Aminotransferase 19 U/L (12-78); Anion Gap 7.7 mEq/L (5-15); Aspartate Amino Transferase 26 U/L (14-36); Blood Urea Nitrogen 16 mg/dl (7-17); Carbon Dioxide 29 mmol/L (22.0-30.0); Creatinine Clearance Estimated 34 mL/min (50-200); Estimated Glomerular Filt Rate 62 ml/min (>60); GFR (African American) 75 ML/MIN (>60)
[2024-02-18 10:23] LABS: Albumin/Globulin Ratio 1.3 (1.1-1.8); Alkaline Phosphatase 101 U/L (38-126); Bilirubin,Total 0.7 mg/dl (0.2-1.3); Calcium 9.9 mg/dl (8.4-10.2); Globulin 3.3 g/dL (1.3-3.2); Glucose 109 mg/dl (74-100); Total Protein,Serum 7.5 g/dl (6.3-8.2)
[2024-02-18] MEDS: ONDANSETRON 4MG ODT 4 MG SL (11:15)
[2024-02-18 12:38] LABS: Reflex Lactic Add Lactic Reflex
== END 2024-02-18 11:37 | disposition home or self-care (01) ==
PROVIDERS: Emergency Provider Student in an Organized Health Care Education/Training Program
DX: R05.9 Cough, unspecified (principal); R11.0 Nausea; F41.9 Anxiety disorder, unspecified; F17.210 Nicotine dependence, cigarettes, uncomplicated; J44.9 Chronic obstructive pulmonary disease, unspecified; Z86.79 Personal history of other diseases of the circulatory system; I10 Essential (primary) hypertension; E78.5 Hyperlipidemia, unspecified; Z95.5 Presence of coronary angioplasty implant and graft; Z99.81 Dependence on supplemental oxygen
CPT/HCPCS: 71045; 80053; 82803; 83605; 83690; 84484; 85025; 93005; 96374; 99284; J2405; J7120; Q0162

== ENCOUNTER 2024-03-10 00:10 | Observation (INO) | payer MEDICARE, SELFPAY ==
[2024-03-10] VITALS (15 sets, daily range): BP systolic 91–105; BP diastolic 47–59; PULSE 63–103; RESP 16–20; TEMP 36.4–37.1; O2SAT 90–100; BMI 20.3; BMI 16.6; BMI 18.2
--- NOTE | 2024-03-10 00:22 | CT_ITS ---
PROCEDURE INFORMATION: Exam: CT Cervical Spine Without Contrast Exam date and time: 03/10/2024 12:36 AM Age: 68 years old Clinical indication: Other: Altered mental status TECHNIQUE: Imaging protocol: Computed tomography of the cervical spine without contrast. Radiation optimization: All CT scans at this facility use at least one of these dose optimization techniques: automated exposure control; mA and/or kV adjustment per patient size (includes targeted exams where dose is matched to clinical indication); or iterative reconstruction. COMPARISON: CT CERVICAL SPINE WO CON 10/28/2023 1:56 AM FINDINGS: Bones: Mild straightening of the cervical spine. No fracture or bone destruction. Mild multilevel degenerative disc disease predominantly at C3-C4 , C4-C5 and C5-C6 levels with mild disc space narrowing and small disc osteophyte complexes. Predental space narrowing consistent with arthritis. Mild to moderate multilevel facet arthropathy. Left foraminal narrowing at C3-C4 due to facet hypertrophic change and uncovertebral joint hypertrophy image 3/40. Lungs: Lung apices are normal. Vasculature: Dense left carotid calcifications. Soft tissues: Unremarkable. IMPRESSION: 1. Mild straightening of the cervical spine. 2. No fracture or bone destruction. 3. Mild multilevel degenerative disc disease predominantly at C3-C4 , C4-C5 and C5-C6 levels with mild disc space narrowing and small disc osteophyte complexes. 4. Predental space narrowing consistent with arthritis. 5. Mild to moderate multilevel facet arthropathy. 6. Left foraminal narrowing at C3-C4 due to facet hypertrophic change and uncovertebral joint hypertrophy image 3/40. 7. Dense left carotid calcifications.
--- NOTE | 2024-03-10 00:22 | XR_ITS ---
PROCEDURE INFORMATION: Exam: XR Chest Exam date and time: 03/10/2024 12:32 AM Age: 68 years old Clinical indication: Other: Altered mental status TECHNIQUE: Imaging protocol: Radiologic exam of the chest. Views: 1 view. COMPARISON: CR XR CHEST PORTABLE 02/18/2024 9:41 AM FINDINGS: Lungs: In the lung bases there is scattered atelectasis. No consolidation. Pleural spaces: Unremarkable. No pleural effusion. No pneumothorax. Heart/Mediastinum: Unremarkable. No cardiomegaly. Bones/joints: Unremarkable. IMPRESSION: No acute findings.
--- NOTE | 2024-03-10 00:23 | CT_ITS ---
PROCEDURE INFORMATION: Exam: CT Head Without Contrast Exam date and time: 03/10/2024 12:29 AM Age: 68 years old Clinical indication: Altered mental status/memory loss TECHNIQUE: Imaging protocol: Computed tomography of the head without contrast. Radiation optimization: All CT scans at this facility use at least one of these dose optimization techniques: automated exposure control; mA and/or kV adjustment per patient size (includes targeted exams where dose is matched to clinical indication); or iterative reconstruction. COMPARISON: CT HEAD/BRAIN WO CON 10/28/2023 1:54 AM FINDINGS: Brain: No evidence for intracranial hemorrhage, mass lesions or acute stroke. Intracranial vascular calcifications. Mild small vessel ischemic change in the periventricular white matter. Cerebral ventricles: No ventriculomegaly. Pituitary gland and sella: Negative Paranasal sinuses: Visualized sinuses are unremarkable. No fluid levels. Mastoid air cells: Visualized mastoid air cells are well aerated. Orbital cavities: Negative. Parotid and submandibular glands: Negative Bones: Unremarkable. No acute fracture. Soft tissues: Unremarkable. Vasculature: Negative. Other findings: Mild generalized atrophy. IMPRESSION: 1. No evidence for intracranial hemorrhage, mass lesions or acute stroke. 2. Intracranial vascular calcifications. 3. Mild generalized atrophy. 4. Mild small vessel ischemic change in the periventricular white matter.
--- NOTE | 2024-03-10 00:43 | ECG_ITS ---
APPROVED REPORT Exam: Resting ECG HR:66 bpm ECG Measurements Heart Rate 66 AXES [place] 168 P 82 QRSd 76 QRS 82 QT 411 T 75 QTc 424 Conclusion SINUS RHYTHM MINIMAL ST DEPRESSION [0.025+ mV ST DEPRESSION] BORDERLINE ECG Electronically signed by : SKYLER SAWANT, 03/10/2024 07:19:48
--- NOTE | 2024-03-10 01:04 | PC.NURSE ---
blood sent up at 1:03
[2024-03-10 01:05] LABS: Lactate Venous 1.1 mmol/L (0.4-2.0); VBG Base Excess -1.9 mmol/L (-2.4-2.3); VBG HCO3 25.2 mmol/L (23-30); VBG Oxygen Saturation 29.8 % (50-70); VBG PH 7.26 mmol/L (7.31-7.41); VBG PO2 20.3 mmol/L (28-40)
[2024-03-10 01:08] LABS: VBG PCO2 57.9 mmol/L (35-51)
[2024-03-10 01:10] LABS: Basophils # 0.3 K/mm3 (0-0.2); Basophils % 4.3 % (0.1-2.0); Eosinophils # 0.2 K/mm3 (0.0-0.4); Eosinophils % 3.6 % (0.1-12.0); Hematocrit 36.8 % (37.0-47.0); Hemoglobin 12.1 g/dL (12.2-16.2); Lymphocytes # 1.9 K/mm3 (0.7-4.5); Lymphocytes % 28.2 % (10-50); Mean Corpuscular HGB Conc 32.7 g/dL (31.8-35.4); Mean Corpuscular Hemoglobin 30.7 pg (27.0-31.2); Mean Corpuscular Volume 93.9 fl (81-99); Mean Platelet Volume 9.6 fl (7.4-10.4); Monocytes # 0.6 K/mm3 (0.1-1.0); Monocytes % 8.4 % (1.7-9.3); Neutrophils # 3.8 K/mm3 (1.8-7.8); Neutrophils % 55.6 % (37.0-80.0); Platelet Count 206 K/mm3 (142-424); Red Blood Count 3.92 M/mm3 (4.20-5.40); Red Cell Distribution Width 12.6 % (11.5-17.5); White Blood Count 6.8 K/mm3 (4.8-10.8)
[2024-03-10 01:12] LABS: Microscopic, Urine URINE MICROSCOPIC (MICROSCOPIC)
[2024-03-10 01:14] LABS: Albumin Level 3.9 g/dl (3.5-5.0); Chloride 102 mmol/L (98-107)
[2024-03-10 01:14] LABS: Appearance,Urine CLEAR (Clear); Bilirubin,Urine Negative (Negative); Blood, Urine Negative (Negative); Color,Urine YELLOW (Yellow); Glucose,Urine (UA) 3+ (Negative); Ketones,Urine Negative (Negative); Leukocyte Esterase,Urine TRACE (Negative); Nitrate,Urine POSITIVE (Negative); Protein,Urine Negative (Negative); Specific Gravity, Urine 1.015 (1.005-1.030); Urobilinogen,Urine 0.2 EU/dl (0.2)
[2024-03-10 01:15] LABS: Potassium 3.6 mmoL/L (3.5-5.1); Sodium 139 mmol/L (136-145)
[2024-03-10 01:17] LABS: Blood Urea Nitrogen 17 mg/dl (7-17); Creatinine Clearance Estimated 25 mL/min (50-200); Estimated Glomerular Filt Rate 37 ml/min (>60); GFR (African American) 45 ML/MIN (>60)
[2024-03-10 01:18] LABS: Alanine Aminotransferase 15 U/L (12-78); Albumin/Globulin Ratio 1.3 (1.1-1.8); Alkaline Phosphatase 82 U/L (38-126); Anion Gap 9.6 mEq/L (5-15); Aspartate Amino Transferase 24 U/L (14-36); Bilirubin,Total 0.5 mg/dl (0.2-1.3); Calcium 9.6 mg/dl (8.4-10.2); Carbon Dioxide 31 mmol/L (22.0-30.0); Glucose 120 mg/dl (74-100); Prothrombin Time 10.2 seconds (10.1-12.5); Total Protein,Serum 6.9 g/dl (6.3-8.2)
[2024-03-10 01:19] LABS: Ethyl Alcohol < 10 mg/dl (0-10)
[2024-03-10 01:25] LABS: Barbiturates Screen,Urine Positive ng/ml (<200)
[2024-03-10] MEDS: IPRATROPIUM/ALBUTEROL 3 ML NEB 9 ML IH (01:25)
[2024-03-10] MEDS: METHYLPREDNISOLONE SOD SUCC 125MG VIAL 125 MG IV (01:25)
[2024-03-10] MEDS: LACTATED RINGERS 1000ML 1,000 ML 999 ML IV (01:25)
[2024-03-10 01:26] LABS: Amphetamine/Metha Screen,Urine Negative ng/ml (<1000); Benzodiazepines Screen,Urine Positive ng/ml (<200)
[2024-03-10 01:27] LABS: Cannabinoid Screen,Urine Negative ng/ml (<50)
[2024-03-10 01:28] LABS: Cocaine Screen,Urine Negative ng/ml (<300); Methadone Screen,Urine Negative ng/ml (<300)
[2024-03-10 01:29] LABS: Opiate Screen,Urine Negative ng/ml (<300)
[2024-03-10 01:30] LABS: Troponin I < 0.01 ng/ml (0.00-0.034)
[2024-03-10 01:30] LABS: Phencyclidine Screen,Urine Negative ng/ml (<25)
--- NOTE | 2024-03-10 01:34 | P.HP_ITS ---
History of Present Illness *Admission Date: 03/10/24 *Reason for visit:: fall *History of present illness: Ms. Hurst is a 68-year-old female with history of COPD, CAD, depression, continued tobacco use and oxygen dependence who presented to the ER because of a fall at home. She went outside to smoke would be assistance of family and when she stood up, she lost her balance and fell to the ground. Concerned that she hit her head. Denies any loss of consciousness. Brought to the ER for evaluation due to her fall and being on anticoagulant. On arrival to the ER, denies significant pain. She does complain of some nausea that is been going on for weeks but denies any active vomiting, diarrhea, fever or chills. Workup in the ER concerning for slight hypercarbia above normal. Found to have an RONI with elevation in creatinine of more than 20% from baseline. Continues to requ dawson her baseline 2 L oxygen. Significantly wheezy on exam. Medicine consulted for admission and further management of RONI and COPD exacerbation Urine drug screen returned positive for benzodiazepines and barbiturates. Patient on Klonopin chronically. Unsure where the barbiturates would come from. Possible cross-reactivity. Patient denies taking any medications other than what is prescribed. Lives with daughter who regulates her medications. [facility] Disclaimer: The information contained in this section may have been updated after the patient was seen, as this information can be updated by other users. Medical History Insomnia Paroxysmal atrial fibrillation with rapid ventricular response Anxiety Acute exacerbation of chronic obstructive pulmonary disease Acute hypoxic respiratory failure Acute cystitis Suprapubic abdominal pain Nausea Gastritis Nausea Nausea Cough Vitamin D deficiency Pneumonia Decreased muscle strength Unsteady gait Respiratory failure with hypoxia and hypercapnia COPD exacerbation Encounter for screening for malignant neoplasm of lung Family history of asthma COPD mixed type Smoking greater than 30 pack years SOB (shortness of breath) on exertion Chronic respiratory failure with hypoxia Presence of arterial stent H/O Hampton's palsy Sinus tachycardia Hypertrophic obstructive cardiomyopathy Hampton's palsy Depression PTSD (post-traumatic stress disorder) Chronic pain COPD exacerbation Pulmonary nodule CAD (coronary artery disease) HLD (hyperlipidemia) PAD (peripheral artery disease) HTN (hypertension) Anxiety Lung nodule seen on imaging study Surgical History Appendicolith S/P peripheral artery angioplasty with stent placement Family History Other Family history of hypertension Social History Smoking Status: Current every day smoker tobacco type: cigarettes packs per day: 1 second hand exposure: No alcohol intake: never substance use type: denies use current occupational status: retired Travel in the last 8 weeks: None household members: children and none housing: house lives independently: No Other Medical History Have you received the Flu Vaccine for this season: No Have you received the Pneumonia Vaccine: Yes Review of Systems Review of Systems Review of systems (narrative): 14 point review of systems performed, pertinent positives and negatives as per [facility] Meds Home Medications and Allergies Home Medications ?Medication ?Instructions ?Recorded ?Confirmed ?Type aluminum-mag hydroxide-simethicone 5 ml PO Q3H PRN dyspepsia #3,000 mL 02/05/24 03/10/24 Rx 200 mg-200 mg-20 mg/5 mL oral susp (Maalox Advanced) albuterol sulfate 90 mcg/actuation 2 puff inhalation Q4HP PRN 02/28/24 03/10/24 Rx aerosol inhaler Shortness Of Breath #8.5 grams apixaban 5 mg tablet (Eliquis) 2.5 mg (1/2 x 5 mg) PO BID atrial 02/28/24 03/10/24 Rx fib #180 tabs atorvastatin 10 mg tablet 10 mg PO HS Cholesterol #90 tabs 02/28/24 03/10/24 Rx citalopram 10 mg tablet 10 mg PO DAILY #90 tabs 02/28/24 03/10/24 Rx clonazepam 1 mg tablet 1 mg PO BID #60 tabs 02/28/24 03/10/24 Rx clopidogrel 75 mg tablet 75 mg PO DAILY #90 tabs 02/28/24 03/10/24 Rx empagliflozin 10 mg tablet 10 mg PO DAILY #90 tabs 02/28/24 03/10/24 Rx (Jardiance) fluticasone fur. 100 mcg-umeclid 1 inh inhalation DAILY #60 ea 02/28/24 03/10/24 Rx 62.5 mcg-vilant 25 mcg inhalat.powder (Trelegy Ellipta) gabapentin 600 mg tablet 600 mg PO BID #60 tabs 02/28/24 03/10/24 Rx lisinopril 5 mg tablet 5 mg PO DAILY #90 tabs 02/28/24 03/10/24 Rx meclizine 25 mg tablet 25 mg PO TID PRN dizziness #90 tabs 02/28/24 03/10/24 Rx melatonin 5 mg tablet 5 mg PO HS #90 tabs 02/28/24 03/10/24 Rx metoprolol succinate 25 mg 25 mg PO DAILY #90 tabs 02/28/24 03/10/24 Rx tablet,extended release 24 hr ondansetron 4 mg disintegrating 4 mg PO Q6H PRN nausea and 02/28/24 03/10/24 Rx tablet vomiting #30 tabs pantoprazole 40 mg tablet,delayed 40 mg PO DAILY #90 tabs 02/28/24 03/10/24 Rx release polyethylene glycol 3350 17 gram 17 g PO DAILY #100 ea 02/28/24 03/10/24 Rx oral powder packet (Miralax) spironolactone 25 mg tablet 25 mg PO DAILY #90 tabs 02/28/24 03/10/24 Rx calcium carbonate 1,200 mg (2 x 600 mg calcium 03/02/24 03/10/24 Rx (1,500 mg)) PO DAILY #180 tabs cholecalciferol (vitamin D3) 1,250 1,250 mcg PO WEEKLY #12 caps 03/02/24 Rx mcg (50,000 unit) capsule New Prescriptions to Start Prescriptions: Allergies Allergy/AdvReac Type Severity Reaction Status Date / Time levofloxacin Allergy Intermediate blisters Verified 02/28/24 13:51 in mouth, diarrhea Sulfa (Sulfonamide Allergy Unknown Verified 02/28/24 13:51 Antibiotics) Exam Data for Last 24 hours Vital signs and Labs for Last 24 Hours: Temp Pulse Resp BP Pulse Ox O2 Del Method O2 Flow Rate 98.1 F 72 20 91/53 L 95 Nasal Cannula 3 03/10/24 00:10 03/10/24 00:10 03/10/24 00:10 03/10/24 00:10 03/10/24 00:10 03/10/24 00:10 03/10/24 00:10 Laboratory Results - last 24 hr 03/10/24 00:22: VBG pH 7.26 L, VBG pCO2 57.9 H, VBG pO2 20.3 L, VBG HCO3 25.2, VBG Total CO2 27.0, VBG O2 Saturation 29.8 L, VBG Base Excess -1.9, VBG Lactic Acid 1.1 03/10/24 01:00: WBC 6.8, RBC 3.92 L, Hgb 12.1 L, Hct 36.8 L, MCV 93.9, MCH 30.7, MCHC 32.7, RDW 12.6, Plt Count 206, MPV 9.6, Neut % (Auto) 55.6, Lymph % (Auto) 28.2, [place] % (Auto) 8.4, Eos % (Auto) 3.6, Baso % (Auto) 4.3 H, Neut # (Auto) 3.8, Lymph # (Auto) 1.9, [place] # (Auto) 0.6, Eos # (Auto) 0.2, Baso # (Auto) 0.3 H, PT 10.2, INR 0.90, Sodium 139, Potassium 3.6, Chloride 102, Carbon Dioxide 31 H, Anion Gap 9.6, BUN 17, Creatinine 1.40 H, Estimated Creat Clear 25, Estimated GFR 37 L, Est GFR ( Amer) 45 L, Glucose 120 H, Calcium 9.6, Total Bilirubin 0.5, AST 24, ALT 15, Alkaline Phosphatase 82, Troponin I < 0.01, Total Protein 6.9, Albumin 3.9, Globulin 3.0, Albumin/Globulin Ratio 1.3, Plasma/Serum Alcohol < 10 03/10/24 01:08: Urine Color Yellow, Urine Appearance Clear, Urine pH 6.0, Ur Specific [place] 1.015, Urine Protein Negative, Urine Glucose (UA) 3+, Urine Ketones Negative, Urine Blood Negative, Urine Nitrate Positive, Urine Bilirubin Negative, Urine Urobilinogen 0.2, Ur Leukocyte Esterase Trace, Urine Opiates Screen Negative, Urine Methadone Screen Negative, Ur Barbituates Screen Positive H, Ur Phencyclidine Scrn Negative, Ur Amphetamines Screen Negative, U Benzodiazepines Scrn Positive H, Urine Cocaine Screen Negative, U Marijuana (THC) Screen Negative I & O for Last 24 hours: Intake & Output 03/07/24 03/08/24 03/09/24 03/10/24 23:59 23:59 23:59 23:59 Weight 41.277 kg Constitutional Constitutional: no acute distress, cachectic, chronically ill appearing and cooperative *Routine HEENT Exam Head: Present normocephalic Eye: Present EOMI and PERRL ENT: Present mucous membranes moist *Routine Neck Exam Neck: Present supple; Absent lymphadenopathy *Routine Respiratory Exam Respiratory: Present prolonged expiratory phase and wheezes; Absent rhonchi or crackles *Routine Cardiovascular Exam Cardiovascular: Present RRR *Routine Abdominal Exam Abdominal: Present soft and normoactive bowel sounds; Absent tenderness *Routine Rectal Exam Rectal:: deferred *Routine Genitalia Exam Genitalia:: deferred *Routine Extremities Exam Extremities: Absent cyanosis, clubbing or edema Comments: thin *Routine Skin Exam Skin: Present intact and warm; Absent rash *Routine Neurological Exam Neurological: Present alert, oriented X3 and moving all extremities; Absent altered mental status Assessment and Plan *Assessment and plan (1) RONI (acute kidney injury): Status: Acute Category: Medical Code(s): N17.9 - Acute kidney failure, unspecified (2) Respiratory acidosis: Status: Acute Category: Medical Code(s): E87.29 - Other acidosis (3) Polypharmacy: Status: Acute Category: Medical Code(s): Z79.899 - Other nursing home (current) drug therapy (4) Fall: Status: Acute Category: Medical Code(s): W19.XXXA - Unspecified fall, initial encounter (5) Anxiety: Status: Acute Category: Medical Code(s): F41.9 - Anxiety disorder, unspecified (6) Chronic GERD: Status: Chronic Category: Medical Code(s): K21.9 - Gastro-esophageal reflux disease without esophagitis (7) COPD mixed type: Problem Comment: Established with [facility] pulmonology Status: Chronic Category: Medical Code(s): J44.9 - Chronic obstructive pulmonary disease, unspecified (8) Smoking greater than 30 pack years: Status: Chronic Category: Social Hx Code(s): F17.210 - Nicotine dependence, cigarettes, uncomplicated (9) CAD (coronary artery disease): Status: Chronic Qualifiers: Coronary Disease-Associated Artery/Lesion type: [place] artery [place] vs. transplanted heart: [place] heart Associated angina: without angina Qualifi ed Code(s): I25.10 - Atherosclerotic heart disease of [place] coronary artery without angina pectoris Category: Medical Code(s): I25.10 - Atherosclerotic heart disease of [place] coronary artery without angina pectoris (10) Depression: Status: Chronic Qualifiers: Depression Type: major depressive disorder Major depression recurrence: single episode Active/Remission status: currently active Major depression episode severity: mild Qualified Code(s): F32.0 - Major depressive disorder, single episode, mild Category: Medical Code(s): F32.9 - Major depressive disorder, single episode, unspecified Plan Ms. Hurst is a 68-year-old female chronically on oxygen with COPD and continued tobacco use. Having progressive decline. Fell at home. On pre sentation to the ER, found to have RONI, mild respiratory acidosis, concern for COPD exacerbation. Discussed case with ER physician, request admission for fluids, repeat labs, further management. I agreed to admit for further treatment. Received triple DuoNeb's in the ER, still wheezy upon arrival to the floor. Will administer an additional DuoNeb. Status post 1 L LR in the ER. Alert and oriented though fatigued on exam. Problems addressed as follows: COPD exacerbation Chronic hypoxemic respiratory failure Mild respiratory acidosis -pH 7.29, pCO2 in the 50s. Slight elevation in change from baseline. Given patient's alertness, suspect secondary to her polypharmacy versus COPD exacerbation. Will hold on BiPAP at this time. Will treat with DuoNebs every 6 hours scheduled. Resume home Trelegy inhaler. -Prednisone 40 mg daily for 5 days -Nicotine patch as needed; patient has no interest in quitting smoking. -Supplemental oxygen as needed, goal sats greater 90%. Currently on 2 to 3 L -Repeat VBG ordered for the morning. If gas worsening, will initiate BiPAP, if improving, as she does not wear BiPAP at home, will hold on noninvasive positive pressure ventilation. RONI - BUN normal at 17, creatinine elevated at 1.4. Baseline 0.9-1. Repeat CBC, CMP, magnesium ordered for the morning. -Reports poor p.o. intake. Hold FABIAN inhibitor. Status post 1 L in the ER. Hypertension: Blood pressure actually soft on with systolic in the 90s. hold home spironolactone, lisinopril, Jardiance. Paroxysmal A-fib CAD - Continue home metoprolol - Continue home Eliquis 2.5 mg twice daily -Continue Plavix 75 mg daily Anxiety: Continue home clonazepam at reduced dose 0.5mg twice a day. Continue home citalopram 10 mg daily Chronic pain: Continue home gabapentin 6 mg twice daily HLD: Continue home statin medication In the setting of fall and weakness and mild confusion, hold meclizine Chronic GERD: Continue pantoprazole 40 mg daily Failure to thrive: Patient continues to lose weight. Weight down to 44 kg. Becoming more frail. Patient getting weaker at home. Has had therapy in the past. Would benefit from home health. Also discussed the potential for hospice given her progressive decline. Patient and daughter are open to at least discussing/evaluating with hospice via consult. Will plan to have [facility] navigators evaluate patient for home health versus hospice. DVT PPx on home Eliquis DNR/DNI Cardiac diet
[2024-03-10 01:37] LABS: Bacteria,Urine Trace /lpf; Squamous Epithelial Cell,Urine Occasional #/hpf (0-5); WBC,Urine Occasional #/hpf (0-3)
--- NOTE | 2024-03-10 01:39 | PC.NURSE ---
House notified for admit
--- NOTE | 2024-03-10 01:48 | PC.NURSE ---
Report called to CHRISTINE Andrews
--- NOTE | 2024-03-10 01:59 | PC.NURSE ---
PT ARRIVED TO FLOOR AT THIS TIME
--- NOTE | 2024-03-10 03:00 | ED_ITS ---
Discharge Plan Disposition Patient Disposition: Admitted Clinical Impressions Clinical Impression: Altered mental state, Fall, RONI (acute kidney injury), Respiratory acidosis, Polypharmacy Discharge ED Provider: Yousuf Bridges Adult HPI General Chief complaint: Fall Stated complaint: Fall/AMS Time Seen by Provider: 03/10/24 00:15 Mode of Arrival: Wheelchair Source of Information: Relative Limitations: No Limitations Description of Symptoms (Recalled from ER Triage Doc. by RN): Patient to ED via POV with daughter at bedside with complaints of fall approx 2345. Patient was sitting on concrete step outside of house smoking when she stood up and lost balance, having ground level fall and hitting head. Patient daughter denies LOC. Patient denies pain. Currently take eliquis, and plavix for blood thinners. NIH 0 at time of exam. History of Present Illness HPI narrative: 68-year-old female presents to the ER with concerns of fall. Patient was sitting on a concrete step outside when she stood up and lost her balance having a ground-level fall, striking her head on the concrete. No loss of consciousness. Patient does take Eliquis and Plavix. Family at bedside reports that patient has been slightly off from her baseline in the last few days and seemed weaker than normal. She has not had fevers, chills, chest pain, difficulty breathing, nausea, vomiting, diarrhea. She denies any painful urination. No changes in medications recently. Patient does have a history of COPD on oxygen at home. ROS otherwise negative. Related Data Previous Rx's ?Medication ?Instructions ?Recorded aluminum-mag hydroxide-simethicone 5 ml PO Q3H PRN dyspepsia #3,000 mL 02/05/24 200 mg-200 mg-20 mg/5 mL oral susp (Maalox Advanced) albuterol sulfate 90 mcg/actuation 2 puff inhalation Q4HP PRN 02/28/24 aerosol inhaler Shortness Of Breath #8.5 grams apixaban 5 mg tablet (Eliquis) 2.5 mg (1/2 x 5 mg) PO BID atrial 02/28/24 fib #180 tabs atorvastatin 10 mg tablet 10 mg PO HS Cholesterol #90 tabs 02/28/24 citalopram 10 mg tablet 10 mg PO DAILY #90 tabs 02/28/24 clonazepam 1 mg tablet 1 mg PO BID #60 tabs 02/28/24 clopidogrel 75 mg tablet 75 mg PO DAILY #90 tabs 02/28/24 empagliflozin 10 mg tablet 10 mg PO DAILY #90 tabs 02/28/24 (Jardiance) fluticasone fur. 100 mcg-umeclid 1 inh inhalation DAILY #60 ea 02/28/24 62.5 mcg-vilant 25 mcg inhalat.powder (Trelegy Ellipta) gabapentin 600 mg tablet 600 mg PO BID #60 tabs 02/28/24 lisinopril 5 mg tablet 5 mg PO DAILY #90 tabs 02/28/24 meclizine 25 mg tablet 25 mg PO TID PRN dizziness #90 tabs 02/28/24 melatonin 5 mg tablet 5 mg PO HS #90 tabs 02/28/24 metoprolol succinate 25 mg 25 mg PO DAILY #90 tabs 02/28/24 tablet,extended release 24 hr ondansetron 4 mg disintegrating 4 mg PO Q6H PRN nausea and 02/28/24 tablet vomiting #30 tabs pantoprazole 40 mg tablet,delayed 40 mg PO DAILY #90 tabs 02/28/24 release polyethylene glycol 3350 17 gram 17 g PO DAILY #100 ea 02/28/24 oral powder packet (Miralax) spironolactone 25 mg tablet 25 mg PO DAILY #90 tabs 02/28/24 calcium carbonate 1,200 mg (2 x 600 mg calcium 03/02/24 (1,500 mg)) PO DAILY #180 tabs cholecalciferol (vitamin D3) 1,250 1,250 mcg PO WEEKLY #12 caps 03/02/24 mcg (50,000 unit) capsule Allergies Allergy/AdvReac Type Severity Reaction Status Date / Time levofloxacin Allergy Intermediate blisters Verified 02/28/24 13:51 in mouth, diarrhea Sulfa (Sulfonamide Allergy Unknown Verified 02/28/24 13:51 Antibiotics) [facility] Disclaimer: The information contained in this section may have been updated after the patient was seen, as this information can be updated by other users. Medical History (Updated 03/10/24 @ 01:36 by Yousuf Bridges MD) Insomnia Paroxysmal atrial fibrillation with rapid ventricular response Anxiety Acute exacerbation of chronic obstructive pulmonary disease Acute hypoxic respiratory failure Acute cystitis Suprapubic abdominal pain Nausea Gastritis Nausea Nausea Cough Vitamin D deficiency Pneumonia Decreased muscle strength Unsteady gait Respiratory failure with hypoxia and hypercapnia COPD exacerbation Encounter for screening for malignant neoplasm of lung Family history of asthma COPD mixed type Smoking greater than 30 pack years SOB (shortness of breath) on exertion Chronic respiratory failure with hypoxia Presence of arterial stent H/O Hampton's palsy Sinus tachycardia Hypertrophic obstructive cardiomyopathy Hampton's palsy Depression PTSD (post-traumatic stress disorder) Chronic pain COPD exacerbation Pulmonary nodule CAD (coronary artery disease) HLD (hyperlipidemia) PAD (peripheral artery disease) HTN (hypertension) Anxiety Lung nodule seen on imaging study Surgical History Appendicolith S/P peripheral artery angioplasty with stent placement Family History Other Family history of hypertension Social History Smoking Status: Current every day smoker tobacco type: cigarettes packs per day: 1 second hand exposure: No alcohol intake: never substance use type: denies use current occupational status: retired Travel in the last 8 weeks: None household members: children and none housing: house lives independently: No Other Medical History Have you received the Flu Vaccine for this season: No Have you received the Pneumonia Vaccine: No ROS Obtained: Yes All systems reviewed & no additional complaints except as documented Positive ROS per HPI Physical Exam General General appearance: alert and in no apparent distress Head Head exam: atraumatic and normocephalic Eye Eye exam: Present PERRL and EOMI ENT ENT exam: Present mucous membranes moist Neck Neck exam: Present normal inspection and full ROM Chest Chest inspection: Present symmetric chest wall rise Respiratory Respiratory exam: Absent normal lung sounds bilaterally (Bilateral rhonchi, no rales), respiratory distress, wheezes or stridor Cardiovascular Cardiovascular exam: Present regular rate and normal rhythm Abdominal Exam Abdominal exam: Present soft; Absent distention or tenderness Extremities Exam Extremities exam: Present full ROM; Absent edema or joint swelling Neurological Exam Neurological exam: Present alert, oriented X3 and other (GCS 15); Absent motor sensory deficit Psychiatric Psychiatric exam: Present normal affect and normal mood Skin Skin exam: Present warm and dry Medical Decision Making Medical Records Medical records reviewed: Yes I reviewed the patient's medical records. Screening: Per USPSTF and CDC recommendations, given the prevalence of disease in our region, it is our hospital?s policy to screen for HIV and viral Hepatitis for all patients aged 18 and over and those with ongoing risk factors. MR Comment: Patient is well-known to this emergency department with 9 visits to our ER this calendar year. She has previously had admissions for UTI, COPD exacerbation, among others. [place] Inquiry Pt receiving controlled substance: No Vital Signs: 03/10/24 00:10 03/10/24 01:18 03/10/24 01:30 Temperature 98.1 F Temperature Source Oral Pulse Rate 65 63 Pulse Rate [Right] 72 Respiratory Rate 20 Blood Pressure 95/47 L 95/49 L Blood Pressure [Right Arm] 91/53 L Blood Pressure Mean 57 60 Blood Pressure Mean [Right Arm] 65 Blood Pressure Source Blood Pressure Position Blood Pressure Position [Right Arm] Supine 02 Sat by Pulse Oximetry 95 100 100 Oxygen Delivery Method Nasal Cannula Nasal Cannula Nasal Cannula Oxygen Flow Rate (LPM) 3 3 3 03/10/24 01:48 Temperature 97.8 F Temperature Source Oral Pulse Rate 65 Pulse Rate [Right] Respiratory Rate 16 Blood Pressure 95/59 L Blood Pressure [Right Arm] Blood Pressure Mean Blood Pressure Mean [Right Arm] Blood Pressure Source Automatic Cuff Blood Pressure Position Supine Blood Pressure Position [Right Arm] 02 Sat by Pulse Oximetry Oxygen Delivery Method Nasal Cannula Oxygen Flow Rate (LPM) 2 Lab Data Lab Results 03/10/24 00:22: VBG pH 7.26 L, VBG pCO2 57.9 H, VBG pO2 20.3 L, VBG HCO3 25.2, VBG Total CO2 27.0, VBG O2 Saturation 29.8 L, VBG Base Excess -1.9, VBG Lactic Acid 1.1 03/10/24 01:00: WBC 6.8, RBC 3.92 L, Hgb 12.1 L, Hct 36.8 L, MCV 93.9, MCH 30.7, MCHC 32.7, RDW 12.6, Plt Count 206, MPV 9.6, Neut % (Auto) 55.6, Lymph % (Auto) 28.2, [place] % (Auto) 8.4, Eos % (Auto) 3.6, Baso % (Auto) 4.3 H, Neut # (Auto) 3.8, Lymph # (Auto) 1.9, [place] # (Auto) 0.6, Eos # (Auto) 0.2, Baso # (Auto) 0.3 H, PT 10.2, INR 0.90, Sodium 139, Potassium 3.6, Chloride 102, Carbon Dioxide 31 H, Anion Gap 9.6, BUN 17, Creatinine 1.40 H, Estimated Creat Clear 25, Estimated GFR 37 L, Est GFR ( Amer) 45 L, Glucose 120 H, Calcium 9.6, Total Bilirubin 0.5, AST 24, ALT 15, Alkaline Phosphatase 82, Troponin I < 0.01, Total Protein 6.9, Albumin 3.9, Globulin 3.0, Albumin/Globulin Ratio 1.3, Plasma/Serum Alcohol < 10 03/10/24 01:08: Urine Color Yellow, Urine Appearance Clear, Urine pH 6.0, Ur Specific [place] 1.015, Urine Protein Negative, Urine Glucose (UA) 3+, Urine Ketones Negative, Urine Blood Negative, Urine Nitrate Positive, Urine Bilirubin Negative, Urine Urobilinogen 0.2, Ur Leukocyte Esterase Trace, Urine RBC None, Urine WBC Occasional, Ur Squamous Epith Cells Occasional, Urine Bacteria Trace, Urine Opiates Screen Negative, Urine Methadone Screen Negative, Ur Barbituates Screen Positive H, Ur Phencyclidine Scrn Negative, Ur Amphetamines Screen Negative, U Benzodiazepines Scrn Positive H, Urine Cocaine Screen Negative, U Marijuana (THC) Screen Negative 03/10/24 01:00 03/10/24 01:00 Orders (Tests/Meds): ED MEDICATIONS Generic Name Dose Route Start Last Admin Trade Name Freq PRN Reason Stop Dose Admin Albuterol/Ipratropium 3 ml 03/10/24 03:00 Ipratropium/Albuterol 3 Ml [facility] 04/09/24 02:59 Q6RT LEONARD Nicotine 21 mg 03/10/24 01:32 Nicotine 21mg/24hr Patch TD 04/09/24 01:31 DAILYP PRN Nicotine Cravings Discontinued Medications Generic Name Dose Route Start Last Admin Trade Name Freq PRN Reason Stop Dose Admin Albuterol/Ipratropium 9 ml 03/10/24 01:22 03/10/24 01:25 Ipratropium/Albuterol 3 Ml Neb 03/10/24 01:23 9 ml ONCE ONE Administration Lactated Ringer's 1,000 mls @ 999 mls/hr 03/10/24 01:24 03/10/24 01:25 Lactated Ringer's 1000 Ml Bag IV 03/10/24 02:24 999 mls/hr .Q1H1M ONE Administration Methylprednisolone Sodium Succinate 125 mg 03/10/24 01:22 10 01:25 Methylprednisolone Sod Succ 125mg Vial IV 03/10/24 01:23 125 mg ONCE ONE Administration ORDERS Category Date Time Status CT cervical spine wo con Stat Cat Scan 03/10/24 00:[address] head/brain wo con Stat Cat Scan 03/10/24 00:23 Completed XR chest portable Stat Exams 03/10/24 00:22 Completed Complete Blood Count Auto Diff AMLAB Lab 03/10/24 06:00 Ordered Complete Blood Count Auto Diff Stat Lab 03/10/24 01:00 Completed Comprehensive Metabolic Panel AMLAB Lab 03/10/24 06:00 Ordered Comprehensive Metabolic Panel Stat Lab 03/10/24 01:00 Completed Drug Screen,Urine Stat Lab 03/10/24 01:08 Completed Ethanol [Ethyl Alcohol] Stat Lab 03/10/24 01:00 Completed Magnesium AMLAB Lab 03/10/24 06:00 Ordered Prothrombin Time INR Stat Lab 03/10/24 01:00 Completed Trop I [Troponin I] Stat Lab 03/10/24 01:00 Completed Troponin I Q3H Lab 03/10/24 03:30 Ordered Troponin I Q3H Lab 03/10/24 06:30 Ordered Urinalysis and Microscopic Stat Lab 03/10/24 01:08 Completed VBG [Venous Blood Gas] Stat RT 03/10/24 00:22 Completed Medical Decision Narrative: In summary, this 68-year-old female with multiple chronic medical conditions including COPD, hypertension, A-fib on blood thinners all of which are comorbidities of current condition and increase the patient's overall morbidity presents to the emergency department today with concerns of fall, generalized weakness. On initial evaluation patient is hemodynamically stable, afebrile, GCS of T, no localizing neurologic deficits, no focal findings on exam aside from rhonchi in bilateral lungs but no respiratory distress or wheezing. Patient was saturating in the mid 90s on room air but was placed on her home nasal cannula support for comfort. Differential diagnosis includes but is not limited to fall, intracranial bleed, cervical spine injury, skull fracture, examination was reassuring against other acute traumatic injury, I considered COPD exacerbation, pneumonia, urinary tract infection, electrolyte abnormalities that could be contributing to her altered mental status. Based on these concerns, I ordered serum labs, CT imaging, cardiac workup. ECG personally interpreted demonstrates normal sinus rhythm, rate 66, normal axis, normal NM and QTc, no STEMI. Labs personally reviewed demonstrate respiratory acidosis with hypercarbia, no leukocytosis, patient does have findings of new kidney dysfunction with creatinine 1.4 increased from her baseline of 0.9. Lactic normal, initial troponin undetectably low at less than 0.01, UA with positive nitrates but only occasional WBCs, not convincing for UTI. UDS concerning for polypharmacy. Patient started on IV fluids and received DuoNeb, she has received 1 dose of Solu-Medrol for possible underlying COPD exacerbation. Chest x-ray personally interpreted does not demonstrate any lobar infiltrate, see radiology read for final interpretation. CT head and C-spine are negative for acute traumatic injury on my personal interpretation. See radiology reads for final interpretations. On reassessment patient continues to be stable and unchanged. I believe she requires admission for management of respiratory acidosis, RONI, and to address her polypharmacy which I believe is likely contributing to the respiratory acidosis and decreasing her respiratory drive. I discussed this case with Dr. Baeza including patient's lab findings, he accepted the patient for admission. Critical Care Critical Care Time Critical Care Time: No
[2024-03-10] MEDS: IPRATROPIUM/ALBUTEROL 3 ML NEB IH ×5 (03:46→23:43)
[2024-03-10 04:50] LABS: Troponin I < 0.01 ng/ml (0.00-0.034)
[2024-03-10 06:44] LABS: VBG Base Excess 1.3 mmol/L (-2.4-2.3); VBG HCO3 26.2 mmol/L (23-30); VBG Oxygen Saturation 98.8 % (50-70); VBG PCO2 44.1 mmol/L (35-51); VBG PH 7.39 mmol/L (7.31-7.41); VBG PO2 141.7 mmol/L (28-40); VBG Total CO2 27.6 mmol/L (23-27)
[2024-03-10 07:04] LABS: Basophils % 0.6 % (0.1-2.0); Eosinophils % 0.8 % (0.1-12.0); Hematocrit 36.5 % (37.0-47.0); Hemoglobin 11.6 g/dL (12.2-16.2); Lymphocytes # 0.6 K/mm3 (0.7-4.5); Lymphocytes % 12.1 % (10-50); Mean Corpuscular HGB Conc 31.8 g/dL (31.8-35.4); Mean Corpuscular Hemoglobin 29.9 pg (27.0-31.2); Mean Corpuscular Volume 93.9 fl (81-99); Monocytes # 0.1 K/mm3 (0.1-1.0); Monocytes % 1.9 % (1.7-9.3); Neutrophils # 4.3 K/mm3 (1.8-7.8); Neutrophils % 84.6 % (37.0-80.0); Platelet Count 169 K/mm3 (142-424); Red Blood Count 3.89 M/mm3 (4.20-5.40); Red Cell Distribution Width 12.5 % (11.5-17.5)
[2024-03-10 07:18] LABS: Albumin Level 3.5 g/dl (3.5-5.0); Chloride 105 mmol/L (98-107)
[2024-03-10 07:19] LABS: Sodium 137 mmol/L (136-145)
[2024-03-10 07:21] LABS: Alanine Aminotransferase 12 U/L (12-78); Albumin/Globulin Ratio 1.3 (1.1-1.8); Alkaline Phosphatase 86 U/L (38-126); Aspartate Amino Transferase 22 U/L (14-36); Bilirubin,Total 0.4 mg/dl (0.2-1.3); Blood Urea Nitrogen 15 mg/dl (7-17); Carbon Dioxide 29 mmol/L (22.0-30.0); Creatinine Clearance Estimated 38 mL/min (50-200); Estimated Glomerular Filt Rate 55 ml/min (>60); GFR (African American) 67 ML/MIN (>60); Globulin 2.8 g/dL (1.3-3.2); Total Protein,Serum 6.3 g/dl (6.3-8.2)
[2024-03-10 07:22] LABS: Calcium 9.2 mg/dl (8.4-10.2); Glucose 142 mg/dl (74-100)
[2024-03-10 07:35] LABS: Troponin I < 0.01 ng/ml (0.00-0.034)
[2024-03-10] MEDS: clonazePAM 0.5MG TABLET 0.5 MG PO ×2 (08:59→21:01)
[2024-03-10] MEDS: OYSTER SHELL CALCIUM (ELEMENTAL) 500MG TAB 1000 MG PO (09:00)
[2024-03-10] MEDS: APIXABAN 5MG TABLET 2.5 MG PO ×2 (09:00→21:01)
[2024-03-10] MEDS: PANTOPRAZOLE 40MG TABLET 40 MG PO (09:00)
[2024-03-10] MEDS: CITALOPRAM 10MG TABLET 10 MG PO (09:00)
[2024-03-10] MEDS: CLOPIDOGREL 75MG TAB 75 MG PO (09:00)
[2024-03-10] MEDS: GABAPENTIN 600MG TABLET 600 MG PO ×2 (09:00→21:01)
[2024-03-10] MEDS: FLUTICASONE/UMECLIDIN/VILANTER 100/62.5/25MCG INHALER 1 PUFF IH (09:50)
[2024-03-10] MEDS: CEFTRIAXONE 1 GM 1 GM in 0.9 % SODIUM CHLORIDE 50 ML IV (13:32)
[2024-03-10 13:57] LABS: Free T4 (Free Thyroxine) 1.07 ng/dl (0.78-2.19)
[2024-03-10 14:11] LABS: Thyroid Stimulating Hormone 0.74 uIU/mL (0.465-4.68)
[2024-03-10 14:30] LABS: Vitamin B12 469 pg/mL (239-931)
--- NOTE | 2024-03-10 17:56 | PC.NURSE ---
pt started shift on 2L nc. pt currently on room air and satting in low 90s. pt has had no complaints today. pt ripped out previous IV, 20G IV was placed in left forearm. call light within reach. no new orders at this time. tele was d/c. pulse ox still in place.
[2024-03-11] VITALS (7 sets, daily range): BP systolic 118–138; BP diastolic 51–75; PULSE 71–89; RESP 16–22; TEMP 36.4–37.4; O2SAT 95–99; BMI 18.5
[2024-03-11 00:06] LABS: POC Glucose,Bedside 109 (70-110)
[2024-03-11] MEDS: FLUTICASONE/UMECLIDIN/VILANTER 100/62.5/25MCG INHALER 1 PUFF IH (06:26)
[2024-03-11] MEDS: IPRATROPIUM/ALBUTEROL 3 ML NEB IH ×2 (06:26→11:30)
[2024-03-11] MEDS: clonazePAM 0.5MG TABLET 0.5 MG PO (08:20)
[2024-03-11] MEDS: METOPROLOL SUCCINATE XL 25MG TABLET 25 MG PO (08:20)
[2024-03-11] MEDS: APIXABAN 5MG TABLET 2.5 MG PO (08:20)
[2024-03-11] MEDS: GABAPENTIN 600MG TABLET 600 MG PO (08:20)
[2024-03-11] MEDS: CLOPIDOGREL 75MG TAB 75 MG PO (08:20)
[2024-03-11] MEDS: OYSTER SHELL CALCIUM (ELEMENTAL) 500MG TAB 1000 MG PO (08:20)
[2024-03-11] MEDS: PANTOPRAZOLE 40MG TABLET 40 MG PO (08:20)
[2024-03-11] MEDS: CITALOPRAM 10MG TABLET 10 MG PO (08:20)
[2024-03-11] MEDS: CEFTRIAXONE 1 GM 1 GM in 0.9 % SODIUM CHLORIDE 50 ML IV (08:21)
[2024-03-11 12:40] LABS: Basophils # 0.1 K/mm3 (0-0.2); Eosinophils # 0.1 K/mm3 (0.0-0.4); Eosinophils % 1.8 % (0.1-12.0); Hematocrit 33.6 % (37.0-47.0); Hemoglobin 11.3 g/dL (12.2-16.2); Lymphocytes # 1.9 K/mm3 (0.7-4.5); Lymphocytes % 25.6 % (10-50); Mean Corpuscular HGB Conc 33.5 g/dL (31.8-35.4); Mean Corpuscular Hemoglobin 30.4 pg (27.0-31.2); Mean Corpuscular Volume 90.7 fl (81-99); Mean Platelet Volume 9.7 fl (7.4-10.4); Monocytes # 0.5 K/mm3 (0.1-1.0); Monocytes % 6.2 % (1.7-9.3); Neutrophils # 4.9 K/mm3 (1.8-7.8); Neutrophils % 65.5 % (37.0-80.0); Platelet Count 167 K/mm3 (142-424); Red Cell Distribution Width 12.7 % (11.5-17.5); White Blood Count 7.5 K/mm3 (4.8-10.8)
[2024-03-11 12:50] LABS: Blood Urea Nitrogen 19 mg/dl (7-17); Carbon Dioxide 31 mmol/L (22.0-30.0); Chloride 105 mmol/L (98-107); Creatinine Clearance Estimated 32 mL/min (50-200); Estimated Glomerular Filt Rate 45 ml/min (>60); GFR (African American) 54 ML/MIN (>60); Glucose 99 mg/dl (74-100); Sodium 136 mmol/L (136-145)
--- NOTE | 2024-03-11 13:52 | HMH.PTEV ---
Physical Therapy Evaluation Rehab PT IP Evaluation Start: 03/11/24 09:49 Freq: ONCE Status: Active Protocol: Document 03/11/24 13:44 KAYLIN (Rec: 03/11/24 13:52 KAYLIN [id number]) Subjective/History History History Per H&P: Ms. Hurst is a 68 -year-old female with history of COPD, CAD, depression, continued tobacco use and oxygen dependence who presented to the ER because of a fall at home. She went outside to smoke would be assistance of family and when she stood up, she lost her balance and fell to the ground . Concerned that she hit her head. Denies any loss of consciousness. Brought to the ER for evaluation due to her fall and being on anticoagulant. On arrival to the ER, denies significant pain. She does complain of some nausea that is been going on for weeks but denies any active vomiting, diarrhea, fever or chills. Workup in the ER concerning for slight hypercarbia above normal. Found to have an RONI with elevation in creatinine of more than 20% from baseline. Continues to require her baseline 2 L oxygen. Significantly wheezy on exam. Medicine consulted for admission and further management of RONI and COPD exacerbation Urine drug screen returned positive for benzodiazepines and barbiturates. Patient on Klonopin chronically. Unsure where the barbiturates would come from. Possible cross- reactivity. Patient denies taking any medications other than what is prescribed. Lives with daughter who regulates her medications. Subjective Subjective Pt reports she lives with her daughter and was IND with mobility. Pt intermittently uses a RW but mostly ambulates without it. Daughter helped with cooking/cleaning. Reports hx of falling. New diagnosis of cancer in past 12 No months? Rehab PT IP Eval Objective Appearance Patient Behavior Appropriate,Cooperative Patient Orientation Person,Place,Birthday Difficulty following instructions none Speech Pattern Clear Ambulation Patient Able to Ambulate Yes Ambulation Observation IP General Gait Pattern Observation Ataxic Gait Ambulation Distance (feet) 20 Ambulation Assistive Device None Ambulation Ability Supervision/Stand by,Minimal x 1 (25% assist) Balance Ability to Arise Able, w/o using arms Sitting Balance Steady, safe Standing Balance Steady, wide stance Dynamic Sitting Balance Ability Good Dynamic Standing Balance Ability Fair Transfers Bed Transfer Ability Supervision/Stand by Chair Transfer Ability Supervision/Stand by Sit to Stand Bed Transfer Ability Supervision/Stand by Rehab PT IP prob,goals,plan Problems Date of Evaluation: 03/11/24 PT IP Problems Gait,Balance Rehab Potential Rehab Potential Innapropriate for Skilled Therapy Discharge Plan PT Discharge Plan Pt safe to d/c home when deemed medically necessary d/t level of mobility being baseline, home set-up, and family support. PT recommending pt use her RW for all mobility d/t one LOB when turning (no AD use) around requiring Min A. Pt was SUP for the rest of ambulation. PT educated pt on using her RW for all mobility to prevent future falls. Pt not appropriate for skilled acute care PT at this time d/t pt?s mobility being at her baseline . PT recommending home health or OP PT services to address balance deficits. Eval Complexity Eval Charge Codes 12222 - High Complexity PHYSICIAN CERTIFICATION: I certify the specified therapy services for Johanny Hurst are required, authorized, and reviewed every 30 days.
--- NOTE | 2024-03-11 14:01 | CA_ITS ---
APPROVED REPORT EXAM: Limited 2D Echocardiogram Painter Aircraft: Samina Loyd CRT Ht: 5 ft 1 in Wt: 100lbs BSA: 1.41 BP: 95/59 mmHg Indications: EF CHECK, AFIB, CAD M-Mode Dimensions RVDd 2.28 cm (0.9-2.6) LVDd 3.61 cm (3.5-5.7) LVDs 2.75 cm (3.5-5.7) IVSd 0.88 cm (0.6-1.1) PWd 0.78 cm (0.6-1.1) EF (Teich) 48.40% FS 23.80% EDV (Teich) 54.80 mL ESV (Teich) 28.30 mL Other Information Study Quality: Fair Conclusion This is a limited TTE to evaluate for LV systolic function. Limited windows were obtained. The left ventricle is normal in size. There is increased LV wall thickness. The LV systolic function is hyperdynamic. No regional wall motion abnormalities are noted. LVEF is 70%. Electronically signed by : Alda Sifuentes MD 03/12/2024 00:37:46
--- NOTE | 2024-03-11 14:04 | HMH.OTEV ---
OT Inpatient Evaluation Rehab OT IP Evaluation Start: 03/11/24 09:49 Freq: ONCE Status: Active Protocol: Document 03/11/24 13:57 [facility] (Rec: 03/11/24 14:03 [facility] [id number]) Rehab OT IP Assessment Subjective History Pt oriented x 3 on arrival. Pt agreeable to engage in therapy evaluation. Pt was admitted on 03/10/24 due to a fall and respiratory acidosis. Per H&P: Ms. Hurst is a 68 -year-old female with history of COPD, CAD, depression, continued tobacco use and oxygen dependence who presented to the ER because of a fall at home. She went outside to smoke would be assistance of family and when she stood up, she lost her balance and fell to the ground . Concerned that she hit her head. Denies any loss of consciousness. Brought to the ER for evaluation due to her fall and being on anticoagulant. On arrival to the ER, denies significant pain. She does complain of some nausea that is been going on for weeks but denies any active vomiting, diarrhea, fever or chills. Workup in the ER concerning for slight hypercarbia above normal. Found to have an RONI with elevation in creatinine of more than 20% from baseline. Continues to require her baseline 2 L oxygen. Significantly wheezy on exam. Medicine consulted for admission and further management of RONI and COPD exacerbation Urine drug screen returned positive for benzodiazepines and barbiturates. Patient on Klonopin chronically. Unsure where the barbiturates would come from. Possible cross- reactivity. Patient denies taking any medications other than what is prescribed. Lives with daughter who regulates her medications. Subjective Pt reports she lives with her daughter and was IND with functional transfers without AE. Pt intermittently uses a RW but mostly ambulates without it. Daughter completed all IADLS such as cooking, cleaning, laundry, etc. Pt does wear o2 at all times. Pt required some assistance with bathing, but was independent with feeding and dressing. I am ready to go home. Objective Patient Orientation Person,Place,Birthday Right Upper Extremity Gross ROM WFL Left Upper Extremity Gross ROM WFL Bed Mobility bed mobility-scooting,bed mobility - supine/sit Assist Level Supervision/Stand by Transfer Training Sit/Stand Transfer Assist Level Supervision/Stand by Chair Transfer Ability Supervision/Stand by Chair Transfer Technique Sit to/from Ambulatory Lower Body Dressing Ability Standby Assistance Rehab OT IP prob,goals,plan Problems Date of Evaluation: 03/11/24 Rehab Potential Rehab Potential Innapropriate for Skilled Therapy Discharge Plan OT Discharge Plan Pt appears to be at baseline with functional transfers and ADL independence. Pt can return home with daughter once she is medically stable per physician. Therapist does recommend HH OT evaluation upon returning home for environmental safety. Eval Complexity Eval Charge Codes 66098 - Moderate Complexity PHYSICIAN CERTIFICATION: I certify the specified therapy services for Johanny Hurst are required, authorized, and reviewed every 30 days.
--- NOTE | 2024-03-11 15:46 | SW/DCPLANNER ---
Addendum entered by Nallely Lopes 03/12/24 10:03: Tigist salvador/ [facility] stated that services will start tomorrow 03/13. Original Note: and I spoke w/ patient and daughter this afternoon regarding plans once medically stable for discharge. PT/OT evaluated patient and recommended home health services. and I did discuss home health vs Hospice services. Patient and daughter both prefer to return home w/ home health through [facility] at time of discharge. Per MD patient will discharge home this afternoon. I will set up home health services.
[2024-03-11 15:48] LABS: Thyroid Stimulating Hormone 2.02 uIU/mL (0.465-4.68)
--- NOTE | 2024-03-11 15:55 | PC.NURSE ---
pt has remained alert and oriented this shift. pt also remains on 2L, mainly for comfort. pt o2 sats have remained above 90%. pt c/o nausea, hospitalist made aware. pt has been ambulating to and from bathroom w/ standby assistance. pt DNR/DNI was signed and placed on chart. no new orders at this time. call light within reach.
[2024-03-11 16:07] LABS: Vitamin B12 334 pg/mL (239-931)
--- NOTE | 2024-03-13 10:09 | CARE MANAGER ---
Spoke with daughter today regarding patient's recent discharge. She stated that patient is doing well, has made appropriate changes to medication and that HH was planned to come today. No concerns/questions at time of call.
--- NOTE | 2024-04-10 10:29 | P.DS_ITS ---
General Admission date:: 03/10/24 Discharge date: 04/11/24 HPI HPI HPI: Ms. Hurst is a 68-year-old female with history of COPD, CAD, depression, continued tobacco use and oxygen dependence who presented to the ER because of a fall at home. She went outside to smoke would be assistance of family and when she stood up, she lost her balance and fell to the ground. Concerned that she hit her head. Denies any loss of consciousness. Brought to the ER for evaluation due to her fall and being on anticoagulant. On arrival to the ER, denies significant pain. She does complain of some nausea that is been going on for weeks but denies any active vomiting, diarrhea, fever or chills. Workup in the ER concerning for slight hypercarbia above normal. Found to have an RONI with elevation in creatinine of more than 20% from baseline. Continues to require her baseline 2 L oxygen. Significantly wheezy on exam. Medicine consulted for admission and further management of RONI and COPD exacerbation Urine drug screen returned positive for benzodiazepines and barbiturates. Patient on Klonopin chronically. Unsure where the barbiturates would come from. Possible cross-reactivity. Patient denies taking any medications other than what is prescribed. Lives with daughter who regulates her medications. Hospital Course Hospital Course Hospital Course: DISCHARGE SUMMARY FOR 03/11/24 Ms. Hurst is a 68-year-old female chronically on oxygen with COPD and continued tobacco use. Having progressive decline. Fell at home. On presentation to the ER, found to have RONI, mild respiratory acidosis, concern for COPD exacerbation. Discussed case with ER physician, request admission for fluids, repeat labs, further management. I agreed to admit for further treatment. Received triple DuoNeb's in the ER, still wheezy upon arrival to the floor. Will administer an additional DuoNeb. Status post 1 L LR in the ER. Alert and oriented though fatigued on exam. Problems addressed as follows: #COPD exacerbation #Chronic hypoxemic respiratory failure #Mild respiratory acidosis - Intial pH 7.29, pCO2 in the 50s. Slight elevation in change from baseline. - Clinically improved with Duoneb breathing treatments, prednisone, and resuming home Trelegy. - Back to basline 2L nasal cannula. - Will follow-up with pulmonology within 1 week. #Failure to thrive Patient continues to lose weight. Weight down to 44 kg. Becoming more frail. Patient getting weaker at home. Has had therapy in the past. Would benefit from home health. Also discussed the potential for hospice given her progressive decline. Patient and daughter are open to at least discussing/evaluating with hospice, but desire to pursue this outpatient. - Discharged with home health and rolling walker per PT recommendations. Exam Data for Last 24 hours Vital signs and Labs for Last 24 Hours: Temp Pulse Resp BP Pulse Ox O2 Del Method O2 Flow Rate 99.4 F 82 22 138/75 95 Nasal Cannula 2 03/11/24 16:00 03/11/24 16:00 03/11/24 16:00 03/11/24 16:00 03/11/24 16:00 03/11/24 16:00 03/11/24 16:00 Constitutional Constitutional: no acute distress *Routine HEENT Exam Head: Present normocephalic Eye: Present EOMI and PERRL ENT: Present mucous membranes moist *Routine Neck Exam Neck: Present supple; Absent lymphadenopathy *Routine Respiratory Exam Respiratory: Present CTA bilaterally *Routine Cardiovascular Exam Cardiovascular: Present RRR *Routine Abdominal Exam Abdominal: Present soft and normoactive bowel sounds; Absent tenderness *Routine Extremities Exam Extremities: Absent cyanosis, clubbing or edema *Routine Skin Exam Skin: Present warm; Absent rash *Routine Neurological Exam Neurological: Present alert and oriented X3 DS: Diagnosis Discharge Diagnosis (1) RONI (acute kidney injury): Status: Acute Code(s): N17.9 - Acute kidney failure, unspecified (2) Respiratory acidosis: Status: Resolved Code(s): E87.29 - Other acidosis (3) Polypharmacy: Status: Acute Code(s): Z79.899 - Other [facility] (current) drug therapy (4) Fall: Status: Resolved Code(s): W19.XXXA - Unspecified fall, initial encounter (5) Anxiety: Status: Acute Code(s): F41.9 - Anxiety disorder, unspecified (6) Chronic GERD: Status: Inactive Code(s): K21.9 - Gastro-esophageal reflux disease without esophagitis (7) COPD mixed type: Status: Chronic Code(s): J44.9 - Chronic obstructive pulmonary disease, unspecified Problem details: Established with [facility] pulmonology (8) Smoking greater than 30 pack years: Status: Chronic Code(s): F17.210 - Nicotine dependence, cigarettes, uncomplicated (9) CAD (coronary artery disease): Status: Chronic Code(s): I25.10 - Atherosclerotic heart disease of [place] coronary artery without angina pectoris Qualifiers: Coronary Disease-Associated Artery/Lesion type: [place] artery [place] vs. transplanted heart: [place] heart Associated angina: without angina Qualified Code(s): I25.10 - Atherosclerotic heart disease of [place] coronary artery without angina pectoris (10) Depression: Status: Chronic Code(s): F32.9 - Major depressive disorder, single episode, unspecified Qualifiers: Depression Type: major depressive disorder Major depression recurrence: single episode Active/Remission status: currently active Major depression episode severity: mild Qualified Code(s): F32.0 - Major depressive disorder, single episode, mild Meds Home Medications and Allergies Home Medications ?Medication ?Instructions ?Recorded ?Confirmed ?Type albuterol sulfate 90 mcg/actuation 2 puff inhalation Q4HP PRN 02/28/24 04/06/24 Rx aerosol inhaler Shortness Of Breath #8.5 grams clopidogrel 75 mg tablet 75 mg PO DAILY #90 tabs 02/28/24 04/06/24 Rx gabapentin 600 mg tablet 600 mg PO BID #60 tabs 02/28/24 04/06/24 Rx metoprolol succinate 25 mg 25 mg PO DAILY #90 tabs 02/28/24 04/06/24 Rx tablet,extended release 24 hr pantoprazole 40 mg tablet,delayed 40 mg PO DAILY #90 tabs 02/28/24 04/06/24 Rx release calcium carbonate 1,200 mg (2 x 600 mg calcium 03/02/24 04/06/24 Rx (1,500 mg)) PO DAILY #180 tabs cholecalciferol (vitamin D3) 1,250 1,250 mcg PO WEEKLY #12 caps 03/02/24 04/06/24 Rx mcg (50,000 unit) capsule aluminum-mag hydroxide-simethicone 5 ml PO Q3HP PRN Indigestion 03/10/24 04/06/24 History 200 mg-200 mg-20 mg/5 mL oral susp (Maalox Advanced) apixaban 2.5 mg tablet (Eliquis) 2.5 mg PO BID 03/10/24 04/06/24 History clonazepam 1 mg tablet 1 mg PO BID #60 tabs 03/28/24 04/06/24 Rx metoclopramide HCl 10 mg tablet 10 mg PO Q6H PRN nausea and 04/05/24 Rx (Reglan) vomiting #10 tabs atorvastatin 10 mg tablet 10 mg PO HS 04/06/24 04/06/24 History citalopram 20 mg tablet 20 mg PO DAILY 04/06/24 04/06/24 History fluticasone fur. 100 mcg-umeclid 1 inh inhalation DAILY 04/06/24 04/06/24 History 62.5 mcg-vilant 25 mcg inhalat.powder (Trelegy Ellipta) lisinopril 5 mg tablet 5 mg PO DAILY 04/06/24 04/06/24 History ondansetron 4 mg disintegrating 4 mg PO Q6HP PRN nausea and 04/06/24 04/06/24 History tablet vomiting polyethylene glycol 3350 17 gram 17 g PO DAILYP PRN constipation 04/06/24 04/06/24 History oral powder packet (Miralax) spironolactone 25 mg tablet 25 mg PO DAILY 04/06/24 04/06/24 History cefdinir 300 mg capsule 300 mg PO BID 4 days #8 caps 04/07/24 Rx New Prescriptions to Start Prescriptions: Allergies Allergy/AdvReac Type Severity Reaction Status Date / Time levofloxacin Allergy Intermediate blisters Verified 03/20/24 13:48 in mouth, diarrhea Sulfa (Sulfonamide Allergy Unknown Verified 03/20/24 13:48 Antibiotics) Discharge Plan Disposition Patient Disposition: Home Health Service Discharge Order Discharge Orders: Discharge Order (Routine); Ordered 03/11/24 Ordered By: Cameron Larson Follow up Plan Follow up with: Piero Fletcher PA [Physician Agriculture Manager] - 03/20/24 1:30 pm Yarely Lee APRN [Primary Care Provider] - 03/18/24 11:30 am Prescriptions/Medication Reconciliation: Continued albuterol sulfate 90 mcg/actuation HFA aerosol inhaler 2 puff INHALATION Q4HP PRN (Reason: Shortness Of Breath) Qty: 8.5 2RF clopidogrel 75 mg tablet 75 mg PO DAILY Qty: 90 3RF gabapentin 600 mg tablet 600 mg PO BID Qty: 60 0RF metoprolol succinate 25 mg tablet extended release 24 hr 25 mg PO DAILY Qty: 90 3RF pantoprazole 40 mg tablet,delayed release (DR/EC) 40 mg PO DAILY Qty: 90 1RF calcium carbonate 600 mg calcium (1,500 mg) tablet 1,200 mg PO DAILY Qty: 180 3RF cholecalciferol (vitamin D3) 1,250 mcg (50,000 unit) capsule 1,250 mcg PO WEEKLY Qty: 12 1RF alum-mag hydroxide-simeth [Maalox Advanced] 200-200-20 mg/5 mL Suspension 5 ml PO Q3HP PRN (Reason: Indigestion) Eliquis 2.5 mg tablet 2.5 mg PO BID Patient Comments: TAKE ONE TABLET BY MOUTH TWICE DAILY Discontinued citalopram 10 mg tablet 10 mg PO DAILY Qty: 90 3RF Rx Instructions: TAKE ONE TABLET BY MOUTH EVERY DAY meclizine 25 mg tablet 25 mg PO TID PRN (Reason: dizziness) Qty: 90 0RF melatonin 5 mg tablet 5 mg PO HS Qty: 90 3RF No Action clonazepam 1 mg tablet 1 mg PO BID Qty: 60 0RF metoclopramide HCl [Reglan] 10 mg tablet 10 mg PO Q6H PRN (Reason: nausea and vomiting) Qty: 10 0RF polyethylene glycol 3350 [Miralax] 17 gram powder in packet 17 g PO DAILYP PRN (Reason: constipation ) spironolactone 25 mg tablet 25 mg PO DAILY Patient Comments: TAKE ONE TABLET BY MOUTH EVERY DAY citalopram 20 mg tablet 20 mg PO DAILY Patient Comments: TAKE ONE TABLET BY MOUTH EVERY DAY lisinopril 5 mg tablet 5 mg PO DAILY Patient Comments: TAKE ONE TABLET BY MOUTH EVERY DAY atorvastatin 10 mg tablet 10 mg PO HS ondansetron 4 mg tablet,disintegrating 4 mg PO Q6HP PRN (Reason: nausea and vomiting) Trelegy Ellipta 100-62.5-25 mcg blister with device 1 inh INHALATION DAILY Patient Comments: INHALE 1 PUFF BY MOUTH EVERY DAY DIRECTED cefdinir 300 mg capsule 300 mg PO BID 4 Days Qty: 8 0RF Problem Reconciliation Problems Reviewed?: Yes Patient Discharge Instructions ACTIVITY: Continue current activity DIET: continue same diet Additional Instructions: Please follow-up with your PCP within the next 3 days. Have your PCP repeat your BMP to check renal function again. Please follow-up with cardiology within 1 week. Have them follow-up on your ECHO as well. Print Language: Czech Providers Primary Care Provider: Yarely Lee Admit Provider: Joshua Baeza Attending Provider: Joshua Baeza
== END 2024-03-11 17:14 | disposition home health service (06) ==
LOC: ER 01:23 → 2ND 01:41
PROVIDERS: Student in an Organized Health Care Education/Training Program; Admitting Provider Internal Medicine Adolescent Medicine; Emergency Provider Emergency Medicine; PCP Nurse Practitioner Family; Visit Provider Internal Medicine Adolescent Medicine
DX: J44.1 Chronic obstructive pulmonary disease with (acute) exacerbation (principal); R62.7 Adult failure to thrive; N17.9 Acute kidney failure, unspecified; J96.11 Chronic respiratory failure with hypoxia; E87.29 Other acidosis; F41.9 Anxiety disorder, unspecified; K21.9 Gastro-esophageal reflux disease without esophagitis; F17.210 Nicotine dependence, cigarettes, uncomplicated; I25.10 Atherosclerotic heart disease of native coronary artery without angina pectoris; F32.0 Major depressive disorder, single episode, mild; E55.9 Vitamin D deficiency, unspecified; Z79.01 Long term (current) use of anticoagulants; Z79.899 Other long term (current) drug therapy; Z99.81 Dependence on supplemental oxygen; I48.0 Paroxysmal atrial fibrillation; Z95.820 Peripheral vascular angioplasty status with implants and grafts; Z68.1 Body mass index [BMI] 19.9 or less, adult; R64 Cachexia; W01.0XXA Fall on same level from slipping, tripping and stumbling without subsequent striking against object, initial encounter; Y92.017 Garden or yard in single-family (private) house as the place of occurrence of the external cause
CPT/HCPCS: 36415; 51702; 70450; 71045; 72125; 80048; 80050; 80053; 80307; 80320; 81001; 82607; 82803; 82962; 83036; 83735; 84439; 84443; 84484; 85025; 85610; 93005; 93308; 94640; 94760; 97163; 97166; 99285; G0378; G0480; J0696; J2919; J7120; J7620

== ENCOUNTER 2024-04-03 18:19 | Emergency (ER) | payer MEDICARE, SELFPAY ==
[2024-04-03] VITALS (8 sets, daily range): BP systolic 171–197; BP diastolic 73–89; PULSE 59–78; RESP 18–22; TEMP 36.6–36.8; O2SAT 91–99; BMI 16.9
--- NOTE | 2024-04-03 18:32 | ECG_ITS ---
APPROVED REPORT Exam: Resting ECG HR:58 bpm ECG Measurements Heart Rate 58 AXES GA 112 P 83 QRSd 90 QRS 83 QT 446 T 79 QTc 442 Conclusion SINUS BRADYCARDIA WITH SHORT GA INTERVAL POSSIBLE RIGHT VENTRICULAR CONDUCTION DELAY [RSR (QR) IN V1/V2] BORDERLINE ECG UNCONFIRMED REPORT Electronically signed by : OSMANI SARKAR, 04/04/2024 06:51:20
--- NOTE | 2024-04-03 18:37 | ED_ITS ---
<Statement entered by Nitza Basilio DO - 04/04/24 01:19> I was consulted by the GUERA, and we discussed the complexity of the problems being addressed. I approved the treatment and management plan for this patient's care in the emergency department, thus performing a substantive portion of the medical decision making. Nitza Basilio DO Discharge Plan Disposition Patient Disposition: Home, Self-Care Condition: Good Prescriptions Prescriptions: No Action polyethylene glycol 3350 [Miralax] 17 gram powder in packet 17 g PO DAILY Qty: 100 2RF albuterol sulfate 90 mcg/actuation HFA aerosol inhaler 2 puff INHALATION Q4HP PRN (Reason: Shortness Of Breath) Qty: 8.5 2RF atorvastatin 10 mg tablet 10 mg PO HS Qty: 90 3RF clopidogrel 75 mg tablet 75 mg PO DAILY Qty: 90 3RF Jardiance 10 mg tablet 10 mg PO DAILY Qty: 90 3RF Trelegy Ellipta 100-62.5-25 mcg blister with device 1 inh inhalation DAILY Qty: 60 11RF Rx Instructions: INHALE 1 PUFF BY MOUTH EVERY DAY DIRECTED gabapentin 600 mg tablet 600 mg PO BID Qty: 60 0RF lisinopril 5 mg tablet 5 mg PO DAILY Qty: 90 3RF metoprolol succinate 25 mg tablet extended release 24 hr 25 mg PO DAILY Qty: 90 3RF ondansetron 4 mg tablet,disintegrating 4 mg PO Q6H PRN (Reason: nausea and vomiting) Qty: 30 1RF pantoprazole 40 mg tablet,delayed release (DR/EC) 40 mg PO DAILY Qty: 90 1RF spironolactone 25 mg tablet 25 mg PO DAILY Qty: 90 3RF calcium carbonate 600 mg calcium (1,500 mg) tablet 1,200 mg PO DAILY Qty: 180 3RF cholecalciferol (vitamin D3) 1,250 mcg (50,000 unit) capsule 1,250 mcg PO WEEKLY Qty: 12 1RF meclizine 25 mg tablet 25 mg PO TID PRN Patient Comments: TAKE ONE TABLET BY MOUTH THREE TIMES DAILY NEEDED FOR dizziness clonazepam 1 mg tablet 1 mg PO BID Qty: 60 0RF alum-mag hydroxide-simeth [Maalox Advanced] 200-200-20 mg/5 mL Suspension 5 ml PO Q3HP PRN (Reason: Indigestion) Eliquis 2.5 mg tablet 2.5 mg PO BID Patient Comments: TAKE ONE TABLET BY MOUTH TWICE DAILY citalopram 10 mg tablet 20 mg PO DAILY Qty: 30 0RF Rx Instructions: TAKE ONE TABLET BY MOUTH EVERY DAY Referrals Follow up/Referrals: Yarely Lee APRN [Primary Care Provider] - See instructions Activity Restrictions/Add. Instructions Additional Instructions/Restrictions: Follow-up with your PCP for any lingering or worsening symptoms as needed or return to the emergency department as needed. Continue utilizing your nebulizer inhalers alternating with Tylenol and Motrin as needed for symptoms. Clinical Impressions Clinical Impression: Bronchitis, Lung nodule Abdominal pain Qualifiers: Abdominal location: generalized Qualified Code(s): R10.84 - Generalized abdominal pain Instructions Patient Instructions: DI for Acute Abdominal Pain Print Language Print Language: Mohawk Discharge ED Provider: Nitza Basilio HPI <KALEN Rey - Last Filed: 04/03/24 23:12> General Chief Complaint: Abdominal Pain Stated Complaint: abd pain, weak Time Seen by Provider: 04/03/24 18:24 History of Present Illness HPI narrative: Patient presents for evaluation of 2 days of abdominal pain. Patient has multiple medical problems including COPD peripheral artery disease, hypertension ongoing tobaccoism. She was recently admitted to our facility on dependent on 3 L by nasal cannula 26/12, atherosclerotic cardiovascular disease, CHF, ischemic cardiomyopathy, she was recently admitted to our facility on 11/23/2023 through 03/11/2024 for an acute kidney injury and CHF exacerbation. She has done well until the last 2 days where she is reporting that she is having increasing abdominal discomfort but patient has had a bowel movement today is passing flatus. She denies dysuria. She denies chest pain shortness of breath fever chills hemoptysis hematochezia melena nausea vomiting diarrhea. Related Data Home Medications ?Medication ?Instructions ?Recorded ?Confirmed aluminum-mag hydroxide-simethicone 5 ml PO Q3HP PRN Indigestion 03/10/24 03/20/24 200 mg-200 mg-20 mg/5 mL oral susp (Maalox Advanced) apixaban 2.5 mg tablet (Eliquis) 2.5 mg PO BID 03/10/24 03/20/24 meclizine 25 mg tablet 25 mg PO TID PRN 03/20/24 03/20/24 Previous Rx's ?Medication ?Instructions ?Recorded albuterol sulfate 90 mcg/actuation 2 puff inhalation Q4HP PRN 02/28/24 aerosol inhaler Shortness Of Breath #8.5 grams atorvastatin 10 mg tablet 10 mg PO HS Cholesterol #90 tabs 02/28/24 clopidogrel 75 mg tablet 75 mg PO DAILY #90 tabs 02/28/24 empagliflozin 10 mg tablet 10 mg PO DAILY #90 tabs 02/28/24 (Jardiance) fluticasone fur. 100 mcg-umeclid 1 inh inhalation DAILY #60 ea 02/28/24 62.5 mcg-vilant 25 mcg inhalat.powder (Trelegy Ellipta) gabapentin 600 mg tablet 600 mg PO BID #60 tabs 02/28/24 lisinopril 5 mg tablet 5 mg PO DAILY #90 tabs 02/28/24 metoprolol succinate 25 mg 25 mg PO DAILY #90 tabs 02/28/24 tablet,extended release 24 hr ondansetron 4 mg disintegrating 4 mg PO Q6H PRN nausea and 02/28/24 tablet vomiting #30 tabs pantoprazole 40 mg tablet,delayed 40 mg PO DAILY #90 tabs 02/28/24 release polyethylene glycol 3350 17 gram 17 g PO DAILY #100 ea 02/28/24 oral powder packet (Miralax) spironolactone 25 mg tablet 25 mg PO DAILY #90 tabs 02/28/24 calcium carbonate 1,200 mg (2 x 600 mg calcium 03/02/24 (1,500 mg)) PO DAILY #180 tabs cholecalciferol (vitamin D3) 1,250 1,250 mcg PO WEEKLY #12 caps 03/02/24 mcg (50,000 unit) capsule citalopram 10 mg tablet 20 mg (2 x 10 mg) PO DAILY #30 tabs 03/11/24 clonazepam 1 mg tablet 1 mg PO BID #60 tabs 03/28/24 Allergies Allergy/AdvReac Type Severity Reaction Status Date / Time levofloxacin Allergy Intermediate blisters Verified 03/20/24 13:48 in mouth, diarrhea Sulfa (Sulfonamide Allergy Unknown Verified 03/20/24 13:48 Antibiotics) [facility] <KALEN Rey - Last Filed: 04/03/24 23:12> [facility] Disclaimer: The information contained in this section may have been updated after the patient was seen, as this information can be updated by other users. Medical History Foraminal stenosis of cervical region Facet arthropathy, cervical Degenerative disc disease, cervical Impingement syndrome of right shoulder 11/18/23 Chronic pain syndrome Osteopenia Chronic abdominal pain Constipation Chronic GERD Memory loss Established with [facility] neurology Cerebral ventriculomegaly Insomnia Paroxysmal atrial fibrillation with rapid ventricular response Anxiety Acute exacerbation of chronic obstructive pulmonary disease Acute hypoxic respiratory failure Acute cystitis Suprapubic abdominal pain Nausea Gastritis Nausea Nausea Cough Vitamin D deficiency Pneumonia Decreased muscle strength Unsteady gait Respiratory failure with hypoxia and hypercapnia COPD exacerbation Encounter for screening for malignant neoplasm of lung Family history of asthma COPD mixed type Established with [facility] pulmonology Smoking greater than 30 pack years SOB (shortness of breath) on exertion Chronic respiratory failure with hypoxia O2 dependent Presence of arterial stent H/O Hampton's palsy Sinus tachycardia Hypertrophic obstructive cardiomyopathy (2019) Cardiac cath Hampton's palsy Depression PTSD (post-traumatic stress disorder) Chronic pain COPD exacerbation Pulmonary nodule CAD (coronary artery disease) HLD (hyperlipidemia) PAD (peripheral artery disease) HTN (hypertension) Anxiety Lung nodule seen on imaging study Surgical History Appendicolith S/P peripheral artery angioplasty with stent placement Family History Other Family history of hypertension Social History Smoking Status: Current every day smoker tobacco type: cigarettes packs per day: 1 second hand exposure: No alcohol intake: never substance use type: denies use current occupational status: retired Travel in the last 8 weeks: None household members: children and none housing: house lives independently: No Other Medical History Have you received the Flu Vaccine for this season: No Have you received the Pneumonia Vaccine: No <KALEN Rey - Last Filed: 04/03/24 23:12> ROS Obtained: Yes Systems reviewed as appropriate & no additional complaints except as documented Physical Exam <KALEN Rey - Last Filed: 04/03/24 23:12> General General appearance: alert and in no apparent distress Respiratory Respiratory exam: Present other (Diminished breath sounds at the right base with audible coarse breath sounds on exhalation that I am told are her normal baseline); Absent normal lung sounds bilaterally, respiratory distress, wheezes or accessory muscle use Cardiovascular Cardiovascular exam: Present regular rate Neurological Exam Neurological exam: Present alert and oriented X3 HEART Score <KALEN Rey - Last Filed: 04/03/24 23:12> HEART Score HEART Score assessment performed?: Yes History (anamnesis): Slightly suspicious ECG: Non-specific disturbance Age: >65 years Risk factors: Atherosclerosis history Troponin: </= normal limit HEART Score: 5 Critical Care <KALEN Rey - Last Filed: 04/03/24 23:12> Critical Care Time Critical Care Time: No Medical Decision Making <KALEN Rey - Last Filed: 04/03/24 23:12> Medical Records Medical records reviewed: Yes I reviewed the patient's medical records. [place] Inquiry Pt receiving controlled substance: No Vital Signs Vital Signs: 04/03/24 18:20 04/03/24 18:26 04/03/24 18:31 Temperature 97.9 F Temperature Source Oral Pulse Rate 63 59 L Pulse Rate [Left Radial] 59 L Respiratory Rate 22 Blood Pressure 197/84 H 179/79 H Blood Pressure [Right Arm] 197/84 H Blood Pressure Mean 176 159 Blood Pressure Mean [Right Arm] 121 Blood Pressure Source [Right Arm] Automatic Cuff Blood Pressure Position [Right Arm] Sitting 02 Sat by Pulse Oximetry 99 95 98 Oxygen Delivery Method Nasal Cannula Nasal Cannula Nasal Cannula Oxygen Flow Rate (LPM) 3 3 3 04/03/24 19:01 04/03/24 19:30 04/03/24 20:30 Temperature Temperature Source Pulse Rate 63 59 L 65 Pulse Rate [Left Radial] Respiratory Rate Blood Pressure 188/84 H 177/85 H 171/73 H Blood Pressure [Right Arm] Blood Pressure Mean Blood Pressure Mean [Right Arm] Blood Pressure Source [Right Arm] Blood Pressure Position [Right Arm] 02 Sat by Pulse Oximetry 99 98 99 Oxygen Delivery Method Oxygen Flow Rate (LPM) 04/03/24 21:00 04/03/24 21:35 Temperature 98.2 F Temperature Source Pulse Rate 70 78 Pulse Rate [Left Radial] Respiratory Rate 18 Blood Pressure 192/76 H 192/89 H Blood Pressure [Right Arm] Blood Pressure Mean Blood Pressure Mean [Right Arm] Blood Pressure Source [Right Arm] Blood Pressure Position [Right Arm] 02 Sat by Pulse Oximetry 91 L Oxygen Delivery Method Room Air Oxygen Flow Rate (LPM) Lab Data Lab results reviewed: Yes I reviewed the patient's lab results. Labs: Lab Results 04/03/24 18:28: WBC 5.7, RBC 3.60 L, Hgb 11.2 L, Hct 32.9 L, MCV 91.5, MCH 31.2, MCHC 34.1, RDW 12.3, Plt Count 185, MPV 9.7, Neut % (Auto) 59.5, Lymph % (Auto) 26.5, [place] % (Auto) 7.7, Eos % (Auto) 5.2, Baso % (Auto) 1.2, Neut # (Auto) 3.4, Lymph # (Auto) 1.5, [place] # (Auto) 0.4, Eos # (Auto) 0.3, Baso # (Auto) 0.1, PT 10.1, INR 0.89 L, Sodium 141, Potassium 3.8, Chloride 102, Carbon Dioxide 36 H, Anion Gap 6.8, BUN 15, Creatinine 0.90, Estimated Creat Clear 35, Estimated GFR 62, Est GFR ( Amer) 75, Glucose 120 H, Calcium 9.3, Magnesium 2.1, Total Bilirubin 0.5, AST 26, ALT 12, Alkaline Phosphatase 99, Troponin I < 0.01, N T-Pro-B Natriuret Pep 885 H, Total Protein 6.8, Albumin 3.7, Globulin 3.1, Albumin/Globulin Ratio 1.2, Lipase 51, SARS-CoV-2 (PCR) Not detected, HIV 1&2 Antibody Rapid Nonreactive, Influenza A Untype (PCR) Not detected, Influenza Type B (PCR) Not detected 04/03/24 19:38: Urine Color Yellow, Urine Appearance Clear, Urine pH 7.0, Ur Specific [place] 1.020, Urine Protein Negative, Urine Glucose (UA) Negative, Urine Ketones Negative, Urine Blood Negative, Urine Nitrate Negative, Urine Bilirubin Negative, Urine Urobilinogen 0.2, Ur Leukocyte Esterase Negative, Urine WBC 3-5, Ur Squamous Epith Cells Occasional, Urine Bacteria Trace, Urine Mucus 1+ 04/03/24 18:28 04/03/24 18:28 Response Orders (Tests/Meds): ED MEDICATIONS Discontinued Medications Generic Name Dose Route Start Last Admin Trade Name Nikitaq PRN Reason Stop Dose Admin Acetaminophen 1,000 mg 04/03/24 18:51 04/03/24 18:57 Acetaminophen 500mg Tab PO 04/03/24 18:52 1,000 mg ONCE ONE Administration Iopamidol 75 ml 04/03/24 20:03 04/03/24 20:04 Iopamidol-370 (76%);100ml Bottle IV 04/03/24 20:04 75 ml ONCE ONE Administration Ketorolac Tromethamine 15 mg 04/03/24 18:51 04/03/24 18:57 Ketorolac 30mg/Ml Vial IV 04/03/24 18:52 15 mg ONCE ONE Administration Ondansetron HCl 4 mg 04/03/24 18:51 04/03/24 18:57 Ondansetron 4mg/2ml Vial IV 04/03/24 18:52 4 mg ONCE ONE Administration Ondansetron HCl 4 mg 04/03/24 21:30 04/03/24 21:35 Ondansetron 4mg/2ml Vial IV 04/03/24 21:31 4 mg ONCE ONE Administration Sodium Chloride 10 ml 04/03/24 20:03 04/03/24 20:04 Sodium Chloride 0.9% 10ml Syr (Rad Only) IV 05/03/24 20:02 10 ml NEEDED PRN Administration Maintain IV Site ORDERS Category Date Time Status CT abdomen pelvis w con Stat Cat Scan 04/03/24 18:[address] chest w con Stat Cat Scan 04/03/24 18:49 Completed BNP [NT Pro Brain Natriuretic Pep.] Stat Lab 04/03/24 18:28 Completed CBC w/Auto Diff [Complete Blood Count Auto Diff] Stat Lab 04/03/24 18:28 Completed CMP [Comprehensive Metabolic Panel] Stat Lab 04/03/24 18:28 Completed HIV (1&2) Antibody Rapid Stat Lab 04/03/24 18:28 Completed Hep C Ab with Reflex to RNA Stat Lab 04/03/24 18:28 Received INR [Prothrombin Time INR] Stat Lab 04/03/24 18:28 Completed Lipase Stat Lab 04/03/24 18:28 Completed Magnesium Stat Lab 04/03/24 18:28 Completed Rapid PCR Covid and Flu A/B Stat Lab 04/03/24 18:28 Completed Trop I [Troponin I] Stat Lab 04/03/24 18:28 Completed UA [Urinalysis and Microscopic] Stat Lab 04/03/24 19:38 Completed MDM Narrative Medical Decision Narrative: In summary patient is a 68-year-old female who presents to the emergency department for evaluation of abdominal pain. Patient is initially hypertensive with a blood pressure 197/84 with a pulse of 59 respiratory rate is 22 temperature is 97.9 O2 sats 99% on her baseline 3 L by nasal cannula upon arrival. Physical exam is remarkable for diminished breath sounds at the right base with coarse audible breath sounds heard at the bedside but no other adventitious sounds noted, satting at 99% on her baseline 3 L by nasal cannula with no increased work of breathing normal heart sounds, very mild diffuse abdominal discomfort on palpation but no rebound or guarding or rigidity. Bowel sounds normal active.. Differential diagnosis includes constipation versus gastroenteritis versus heart failure versus ACS etc. Initial workup will be conducted with hematologic labs CT scan chest abdomen pelvis with contrast analysis. Initial interventions include Tylenol Zofran. Initial workup reviewed by me shows that her hematologic labs are significant for white count of 5.7 with no shift troponin is undetectable her NT proBNP is slightly elevated at 885 from prior of around 500 and urinalysis is bland and my informal interpretation of her CT imaging shows only slight fullness in the right lung of the main bronchi suggestive of bronchitis but no other acute findings. Upon repeat evaluation patient reported significant improvement after initial intervention. Given this via patient directed discharge she is comfortable going home with close follow-up with her PCP and strict return precautions. <Nitza Basilio, DO - Last Filed: 04/03/24 19:35> Vital Signs Vital Signs: 04/03/24 18:20 04/03/24 18:26 04/03/24 18:31 Temperature 97.9 F Temperature Source Oral Pulse Rate 63 59 L Pulse Rate [Left Radial] 59 L Respiratory Rate 22 Blood Pressure 197/84 H 179/79 H Blood Pressure [Right Arm] 197/84 H Blood Pressure Mean 176 159 Blood Pressure Mean [Right Arm] 121 Blood Pressure Source [Right Arm] Automatic Cuff Blood Pressure Position [Right Arm] Sitting 02 Sat by Pulse Oximetry 99 95 98 Oxygen Delivery Method Nasal Cannula Nasal Cannula Nasal Cannula Oxygen Flow Rate (LPM) 3 3 3 04/03/24 19:01 04/03/24 19:30 04/03/24 20:30 Temperature Temperature Source Pulse Rate 63 59 L 65 Pulse Rate [Left Radial] Respiratory Rate Blood Pressure 188/84 H 177/85 H 171/73 H Blood Pressure [Right Arm] Blood Pressure Mean Blood Pressure Mean [Right Arm] Blood Pressure Source [Right Arm] Blood Pressure Position [Right Arm] 02 Sat by Pulse Oximetry 99 98 99 Oxygen Delivery Method Oxygen Flow Rate (LPM) 04/03/24 21:00 04/03/24 21:35 Temperature 98.2 F Temperature Source Pulse Rate 70 78 Pulse Rate [Left Radial] Respiratory Rate 18 Blood Pressure 192/76 H 192/89 H Blood Pressure [Right Arm] Blood Pressure Mean Blood Pressure Mean [Right Arm] Blood Pressure Source [Right Arm] Blood Pressure Position [Right Arm] 02 Sat by Pulse Oximetry 91 L Oxygen Delivery Method Room Air Oxygen Flow Rate (LPM) Lab Data Labs: Lab Results 04/03/24 18:28: WBC 5.7, RBC 3.60 L, Hgb 11.2 L, Hct 32.9 L, MCV 91.5, MCH 31.2, MCHC 34.1, RDW 12.3, Plt Count 185, MPV 9.7, Neut % (Auto) 59.5, Lymph % (Auto) 26.5, [place] % (Auto) 7.7, Eos % (Auto) 5.2, Baso % (Auto) 1.2, Neut # (Auto) 3.4, Lymph # (Auto) 1.5, [place] # (Auto) 0.4, Eos # (Auto) 0.3, Baso # (Auto) 0.1, PT 10.1, INR 0.89 L, Sodium 141, Potassium 3.8, Chloride 102, Carbon Dioxide 36 H, Anion Gap 6.8, BUN 15, Creatinine 0.90, Estimated Creat Clear 35, Estimated GFR 62, Est GFR ( Amer) 75, Glucose 120 H, Calcium 9.3, Magnesium 2.1, Total Bilirubin 0.5, AST 26, ALT 12, Alkaline Phosphatase 99, Troponin I < 0.01, N T-Pro-B Natriuret Pep 885 H, Total Protein 6.8, Albumin 3.7, Globulin 3.1, Albumin/Globulin Ratio 1.2, Lipase 51, SARS-CoV-2 (PCR) Not detected, HIV 1&2 Antibody Rapid Nonreactive, Influenza A Untype (PCR) Not detected, Influenza Type B (PCR) Not detected 04/03/24 19:38: Urine Color Yellow, Urine Appearance Clear, Urine pH 7.0, Ur Specific [place] 1.020, Urine Protein Negative, Urine Glucose (UA) Negative, Urine Ketones Negative, Urine Blood Negative, Urine Nitrate Negative, Urine Bilirubin Negative, Urine Urobilinogen 0.2, Ur Leukocyte Esterase Negative, Urine WBC 3-5, Ur Squamous Epith Cells Occasional, Urine Bacteria Trace, Urine Mucus 1+ Response Orders (Tests/Meds): ED MEDICATIONS Discontinued Medications Generic Name Dose Route Start Last Admin Trade Name Freq PRN Reason Stop Dose Admin Acetaminophen 1,000 mg 04/03/24 18:51 04/03/24 18:57 Acetaminophen 500mg Tab PO 04/03/24 18:52 1,000 mg ONCE ONE Administration Iopamidol 75 ml 04/03/24 20:03 04/03/24 20:04 Iopamidol-370 (76%);100ml Bottle IV 04/03/24 20:04 75 ml ONCE ONE Administration Ketorolac Tromethamine 15 mg 04/03/24 18:51 04/03/24 18:57 Ketorolac 30mg/Ml Vial IV 04/03/24 18:52 15 mg ONCE ONE Administration Ondansetron HCl 4 mg 04/03/24 18:51 04/03/24 18:57 Ondansetron 4mg/2ml Vial IV 04/03/24 18:52 4 mg ONCE ONE Administration Ondansetron HCl 4 mg 04/03/24 21:30 04/03/24 21:35 Ondansetron 4mg/2ml Vial IV 04/03/24 21:31 4 mg ONCE ONE Administration Sodium Chloride 10 ml 04/03/24 20:03 04/03/24 20:04 Sodium Chloride 0.9% 10ml Syr (Rad Only) IV 05/03/24 20:02 10 ml NEEDED PRN Administration Maintain IV Site ORDERS Category Date Time Status CT abdomen pelvis w con Stat Cat Scan 04/03/24 18:[address] chest w con Stat Cat Scan 04/03/24 18:49 Completed BNP [NT Pro Brain Natriuretic Pep.] Stat Lab 04/03/24 18:28 Completed CBC w/Auto Diff [Complete Blood Count Auto Diff] Stat Lab 04/03/24 18:28 Completed CMP [Comprehensive Metabolic Panel] Stat Lab 04/03/24 18:28 Completed HIV (1&2) Antibody Rapid Stat Lab 04/03/24 18:28 Completed Hep C Ab with Reflex to RNA Stat Lab 04/03/24 18:28 Received INR [Prothrombin Time INR] Stat Lab 04/03/24 18:28 Completed Lipase Stat Lab 04/03/24 18:28 Completed Magnesium Stat Lab 04/03/24 18:28 Completed Rapid PCR Covid and Flu A/B Stat Lab 04/03/24 18:28 Completed Trop I [Troponin I] Stat Lab 04/03/24 18:28 Completed UA [Urinalysis and Microscopic] Stat Lab 04/03/24 19:38 Completed ECG Data Tracing #1: Attestation: I reviewed this ECG and interpreted as documented below: ECG Narrative: Sinus bradycardia with a ventricular rate of [address] changes concerning for ischemia. Motion artifact degrades V3, but normal axis and intervals. ECG initial impression date: 04/03/24 ECG initial impression time: 18:37
--- NOTE | 2024-04-03 18:49 | CT_ITS ---
PROCEDURE INFORMATION: Exam: CT Chest With Contrast; Diagnostic Exam date and time: 04/03/2024 8:06 PM Age: 68 years old Clinical indication: Dyspnea TECHNIQUE: Imaging protocol: Diagnostic computed tomography of the chest with contrast. Radiation optimization: All CT scans at this facility use at least one of these dose optimization techniques: automated exposure control; mA and/or kV adjustment per patient size (includes targeted exams where dose is matched to clinical indication); or iterative reconstruction. Contrast material: ISOVUE; Contrast volume: 75 ml; Contrast route: IV; COMPARISON: CT ANGIO CHEST 10/28/2023 1:59 AM FINDINGS: Lungs: Severe emphysema. Unchanged 4 mm noncalcified subpleural nodule in the anterior left lower lobe. Mild medial right middle lobe and lingula atelectasis versus scarring. Mild bronchial secretions in the right lower lobe. Pleural spaces: Unremarkable. No pneumothorax. No pleural effusion. Heart: Unremarkable. No cardiomegaly. No pericardial effusion. Coronary arteries: Stent in the right coronary artery. Lymph nodes: Unchanged scattered mediastinal lymph nodes measuring up to 1.0 cm in the AP window which are probably reactive. Vasculature: Moderate thoracic aortic atherosclerotic disease without aneurysm. Bones/joints: Unremarkable. No acute fracture. Soft tissues: Unremarkable. IMPRESSION: 1. Severe emphysema. 2. Mild secretions in the right lower lobe bronchi could be due to bronchitis. 3. Unchanged 4 mm noncalcified subpleural nodule in the anterior left lower lobe. For patients at high risk (history of smoking or of other known risk factors), consider optional CT Chest at 12 months. (Reference: Jordyn) COMMENTS: The presence of pulmonary emphysema on CT is an independent risk factor for lung cancer. In the absence of a history or active diagnosis of lung cancer, it is recommended that this patient with emphysema be evaluated for enrollment in a low dose CT lung cancer screening program. REFERENCES: Jordyn Gallegos et al. Guidelines for Management of Incidental Pulmonary Nodules Detected on CT Images: From the Fleischner Society 2017. Radiology. 2017;284(1):228-243.
--- NOTE | 2024-04-03 18:50 | CT_ITS ---
PROCEDURE INFORMATION: Exam: CT Abdomen And Pelvis With Contrast Exam date and time: 04/03/2024 8:06 PM Age: 68 years old Clinical indication: Abdominal pain; Additional info: Acute abdominal pain TECHNIQUE: Imaging protocol: Computed tomography of the abdomen and pelvis with contrast. Radiation optimization: All CT scans at this facility use at least one of these dose optimization techniques: automated exposure control; mA and/or kV adjustment per patient size (includes targeted exams where dose is matched to clinical indication); or iterative reconstruction. Contrast material: ISOVUE; Contrast volume: 75 ml; Contrast route: IV; COMPARISON: CT ABDOMEN PELVIS WO CON 01/26/2024 2:39 PM FINDINGS: Liver: Normal. No mass. Gallbladder and biliary ducts: Normal. No calcified stones. No ductal dilation. Pancreas: Normal. No ductal dilation. Spleen: Normal. No splenomegaly. Adrenal glands: Normal. No mass. Kidneys and ureters: Unchanged punctate left renal calyceal calculus. No renal masses or cysts. No hydronephrosis. Stomach and bowel: Distal colonic diverticulosis without diverticulitis. No dilated or thickened bowel loops. Appendix: No evidence of appendicitis. Intraperitoneal space: Unremarkable. No free air. No significant fluid collection. Vasculature: Severe atherosclerotic disease without aneurysm. Bilateral common iliac and right external iliac artery stents in place. Lymph nodes: Unremarkable. No enlarged lymph nodes. Urinary bladder: Unremarkable as visualized. Reproductive: Unremarkable as visualized. Bones/joints: Mild lower lumbar spine facet arthropathy. Mild degenerative change of the bilateral hips. Soft tissues: Unremarkable. IMPRESSION: 1. No acute intra-abdominal findings. 2. Distal colonic diverticulosis.
[2024-04-03 18:56] LABS: Coronavirus 19, PCR Not Detected (NotDetected); Influenza A, PCR Not Detected (NotDetected); Influenza B, PCR Not Detected (NotDetected)
[2024-04-03] MEDS: ACETAMINOPHEN 500MG TAB 1000 MG PO (18:57)
[2024-04-03] MEDS: KETOROLAC 30MG/ML VIAL 15 MG IV (18:57)
[2024-04-03] MEDS: ONDANSETRON 4MG/2ML VIAL 4 MG IV ×2 (18:57→21:35)
[2024-04-03 19:03] LABS: Basophils # 0.1 K/mm3 (0-0.2); Basophils % 1.2 % (0.1-2.0); Eosinophils # 0.3 K/mm3 (0.0-0.4); Eosinophils % 5.2 % (0.1-12.0); Hematocrit 32.9 % (37.0-47.0); Hemoglobin 11.2 g/dL (12.2-16.2); Lymphocytes # 1.5 K/mm3 (0.7-4.5); Lymphocytes % 26.5 % (10-50); Mean Corpuscular HGB Conc 34.1 g/dL (31.8-35.4); Mean Corpuscular Hemoglobin 31.2 pg (27.0-31.2); Mean Corpuscular Volume 91.5 fl (81-99); Mean Platelet Volume 9.7 fl (7.4-10.4); Monocytes # 0.4 K/mm3 (0.1-1.0); Monocytes % 7.7 % (1.7-9.3); Neutrophils # 3.4 K/mm3 (1.8-7.8); Neutrophils % 59.5 % (37.0-80.0); Platelet Count 185 K/mm3 (142-424); Red Cell Distribution Width 12.3 % (11.5-17.5); White Blood Count 5.7 K/mm3 (4.8-10.8)
[2024-04-03 19:07] LABS: Albumin Level 3.7 g/dl (3.5-5.0); Chloride 102 mmol/L (98-107); INR 0.89 (0.9-1.1); Potassium 3.8 mmoL/L (3.5-5.1); Prothrombin Time 10.1 seconds (10.1-12.5); Sodium 141 mmol/L (136-145)
[2024-04-03 19:09] LABS: Blood Urea Nitrogen 15 mg/dl (7-17)
[2024-04-03 19:10] LABS: Alanine Aminotransferase 12 U/L (12-78); Albumin/Globulin Ratio 1.2 (1.1-1.8); Alkaline Phosphatase 99 U/L (38-126); Anion Gap 6.8 mEq/L (5-15); Aspartate Amino Transferase 26 U/L (14-36); Bilirubin,Total 0.5 mg/dl (0.2-1.3); Calcium 9.3 mg/dl (8.4-10.2); Carbon Dioxide 36 mmol/L (22.0-30.0); Creatinine Clearance Estimated 35 mL/min (50-200); Estimated Glomerular Filt Rate 62 ml/min (>60); GFR (African American) 75 ML/MIN (>60); Globulin 3.1 g/dL (1.3-3.2); Glucose 120 mg/dl (74-100); Lipase 51 U/L (23-300); Total Protein,Serum 6.8 g/dl (6.3-8.2)
[2024-04-03 19:11] LABS: Magnesium 2.1 mg/dl (1.6-2.3)
[2024-04-03 19:20] LABS: NT Pro Brain Natriuretic Pep. 885 pg/mL (0-125)
[2024-04-03 19:29] LABS: Troponin I < 0.01 ng/ml (0.00-0.034)
[2024-04-03 19:44] LABS: Microscopic, Urine URINE MICROSCOPIC (MICROSCOPIC)
[2024-04-03 19:58] LABS: Appearance,Urine CLEAR (Clear); Bilirubin,Urine Negative (Negative); Blood, Urine Negative (Negative); Color,Urine YELLOW (Yellow); Glucose,Urine (UA) Negative (Negative); Ketones,Urine Negative (Negative); Leukocyte Esterase,Urine Negative (Negative); Nitrate,Urine Negative (Negative); Protein,Urine Negative (Negative); Urobilinogen,Urine 0.2 EU/dl (0.2)
[2024-04-03] MEDS: IOPAMIDOL-370 (76%);100ML BOTTLE 75 ML IV (20:04)
[2024-04-03] MEDS: SODIUM CHLORIDE 0.9% 10ML SYR (RAD ONLY) 10 ML IV (20:04)
[2024-04-03 20:14] LABS: HIV (1&2) Antibody Rapid NONREACTIVE (NONREACTIVE)
[2024-04-03 20:38] LABS: Bacteria,Urine Trace /lpf; Mucus,Urine 1+ /lpf; Squamous Epithelial Cell,Urine Occasional #/hpf (0-5)
[2024-04-05 09:15] LABS: HCV Ab Non Reactive (Non Reactive)
== END 2024-04-03 21:37 | disposition home or self-care (01) ==
PROVIDERS: Physician Assistant; Emergency Provider Emergency Medicine; PCP Nurse Practitioner Family
DX: R91.1 Solitary pulmonary nodule (principal); R10.84 Generalized abdominal pain; R10.9 Unspecified abdominal pain
CPT/HCPCS: 71260; 74177; 80053; 81001; 83690; 83735; 83880; 84484; 85025; 85610; 86803; 87389; 87636; 93005; 96374; 96375; 99285; J1885; J2405; Q9967

== ENCOUNTER 2024-04-04 18:06 | Emergency (ER) | payer MEDICARE, SELFPAY ==
--- NOTE | 2024-04-04 18:09 | ED_ITS ---
<Statement entered by Abelardo Lorenzo MD - 04/04/24 22:21> I was consulted by the GUERA, and we discussed the complexity of the problems being addressed. I approved the treatment and management plan for this patient's care in the emergency department, thus performing a substantive portion of the medical decision making. Abelardo Lorenzo MD Discharge Plan Disposition Patient Disposition: Home, Self-Care Prescriptions Prescriptions: No Action polyethylene glycol 3350 [Miralax] 17 gram powder in packet 17 g PO DAILY Qty: 100 2RF albuterol sulfate 90 mcg/actuation HFA aerosol inhaler 2 puff INHALATION Q4HP PRN (Reason: Shortness Of Breath) Qty: 8.5 2RF atorvastatin 10 mg tablet 10 mg PO HS Qty: 90 3RF clopidogrel 75 mg tablet 75 mg PO DAILY Qty: 90 3RF Jardiance 10 mg tablet 10 mg PO DAILY Qty: 90 3RF Trelegy Ellipta 100-62.5-25 mcg blister with device 1 inh inhalation DAILY Qty: 60 11RF Rx Instructions: INHALE 1 PUFF BY MOUTH EVERY DAY DIRECTED gabapentin 600 mg tablet 600 mg PO BID Qty: 60 0RF lisinopril 5 mg tablet 5 mg PO DAILY Qty: 90 3RF metoprolol succinate 25 mg tablet extended release 24 hr 25 mg PO DAILY Qty: 90 3RF ondansetron 4 mg tablet,disintegrating 4 mg PO Q6H PRN (Reason: nausea and vomiting) Qty: 30 1RF pantoprazole 40 mg tablet,delayed release (DR/EC) 40 mg PO DAILY Qty: 90 1RF spironolactone 25 mg tablet 25 mg PO DAILY Qty: 90 3RF calcium carbonate 600 mg calcium (1,500 mg) tablet 1,200 mg PO DAILY Qty: 180 3RF cholecalciferol (vitamin D3) 1,250 mcg (50,000 unit) capsule 1,250 mcg PO WEEKLY Qty: 12 1RF meclizine 25 mg tablet 25 mg PO TID PRN Patient Comments: TAKE ONE TABLET BY MOUTH THREE TIMES DAILY NEEDED FOR dizziness clonazepam 1 mg tablet 1 mg PO BID Qty: 60 0RF alum-mag hydroxide-simeth [Maalox Advanced] 200-200-20 mg/5 mL Suspension 5 ml PO Q3HP PRN (Reason: Indigestion) Eliquis 2.5 mg tablet 2.5 mg PO BID Patient Comments: TAKE ONE TABLET BY MOUTH TWICE DAILY citalopram 10 mg tablet 20 mg PO DAILY Qty: 30 0RF Rx Instructions: TAKE ONE TABLET BY MOUTH EVERY DAY Referrals Follow up/Referrals: Juan Bird II, MD [Staff Physician] - See instructions Yarely Lee APRN [Primary Care Provider] - See instructions Activity Restrictions/Add. Instructions Additional Instructions/Restrictions: At this time it was felt you are safe to be discharged home. If new or worsening symptoms please do not hesitate to return the emergency department. Please call and schedule appointment with Dr. Bird as soon as you are able for your abdominal pain. There was a couple of small spots on your lungs called nodules which are usually benign however we do need to keep an eye on them, please follow-up with your family doctor for continued evaluation. Clinical Impressions Clinical Impression: Abdominal pain, Incidental pulmonary nodule Instructions Patient Instructions: DI for Acute Abdominal Pain Print Language Print Language: Lao Discharge ED Provider: Abelardo Lorenzo [facility] General Chief Complaint: Abdominal Pain Stated Complaint: abdomin pain , SOA Time Seen by Provider: 04/04/24 18:09 History of Present Illness HPI narrative: Patient presents for evaluation of lower abdominal pain. Patient was seen in this ER yesterday for the exact same complaint and an extensive workup was done that revealed no acute causes however patient reported improvement after initial intervention unless deemed appropriate for discharge for strict return precautions. Patient Joy presents with the exact same complaint today of lower abdominal pain without evidence of vaginal discharge hematuria nausea vomiting diarrhea and she is not intolerant of oral intake has had a bowel movement and passing flatus today denies dysuria hematuria. Patient does have COPD CHF is oxygen dependent 3 L by nasal cannula reports shortness of breath however denies that it is worse than normal. Related Data Home Medications ?Medication ?Instructions ?Recorded ?Confirmed aluminum-mag hydroxide-simethicone 5 ml PO Q3HP PRN Indigestion 03/10/24 03/20/24 200 mg-200 mg-20 mg/5 mL oral susp (Maalox Advanced) apixaban 2.5 mg tablet (Eliquis) 2.5 mg PO BID 03/10/24 03/20/24 meclizine 25 mg tablet 25 mg PO TID PRN 03/20/24 03/20/24 Previous Rx's ?Medication ?Instructions ?Recorded albuterol sulfate 90 mcg/actuation 2 puff inhalation Q4HP PRN 02/28/24 aerosol inhaler Shortness Of Breath #8.5 grams atorvastatin 10 mg tablet 10 mg PO HS Cholesterol #90 tabs 02/28/24 clopidogrel 75 mg tablet 75 mg PO DAILY #90 tabs 02/28/24 empagliflozin 10 mg tablet 10 mg PO DAILY #90 tabs 02/28/24 (Jardiance) fluticasone fur. 100 mcg-umeclid 1 inh inhalation DAILY #60 ea 02/28/24 62.5 mcg-vilant 25 mcg inhalat.powder (Trelegy Ellipta) gabapentin 600 mg tablet 600 mg PO BID #60 tabs 02/28/24 lisinopril 5 mg tablet 5 mg PO DAILY #90 tabs 02/28/24 metoprolol succinate 25 mg 25 mg PO DAILY #90 tabs 02/28/24 tablet,extended release 24 hr ondansetron 4 mg disintegrating 4 mg PO Q6H PRN nausea and 02/28/24 tablet vomiting #30 tabs pantoprazole 40 mg tablet,delayed 40 mg PO DAILY #90 tabs 02/28/24 release polyethylene glycol 3350 17 gram 17 g PO DAILY #100 ea 02/28/24 oral powder packet (Miralax) spironolactone 25 mg tablet 25 mg PO DAILY #90 tabs 02/28/24 calcium carbonate 1,200 mg (2 x 600 mg calcium 03/02/24 (1,500 mg)) PO DAILY #180 tabs cholecalciferol (vitamin D3) 1,250 1,250 mcg PO WEEKLY #12 caps 03/02/24 mcg (50,000 unit) capsule citalopram 10 mg tablet 20 mg (2 x 10 mg) PO DAILY #30 tabs 03/11/24 clonazepam 1 mg tablet 1 mg PO BID #60 tabs 03/28/24 Allergies Allergy/AdvReac Type Severity Reaction Status Date / Time levofloxacin Allergy Intermediate blisters Verified 03/20/24 13:48 in mouth, diarrhea Sulfa (Sulfonamide Allergy Unknown Verified 03/20/24 13:48 Antibiotics) [facility] Disclaimer: The information contained in this section may have been updated after the patient was seen, as this information can be updated by other users. Medical History Foraminal stenosis of cervical region Facet arthropathy, cervical Degenerative disc disease, cervical Impingement syndrome of right shoulder 11/18/23 Chronic pain syndrome Osteopenia Chronic abdominal pain Constipation Chronic GERD Memory loss Established with [facility] neurology Cerebral ventriculomegaly Insomnia Paroxysmal atrial fibrillation with rapid ventricular response Anxiety Acute exacerbation of chronic obstructive pulmonary disease Acute hypoxic respiratory failure Acute cystitis Suprapubic abdominal pain Nausea Gastritis Nausea Nausea Cough Vitamin D deficiency Pneumonia Decreased muscle strength Unsteady gait Respiratory failure with hypoxia and hypercapnia COPD exacerbation Encounter for screening for malignant neoplasm of lung Family history of asthma COPD mixed type Established with [facility] pulmonology Smoking greater than 30 pack years SOB (shortness of breath) on exertion Chronic respiratory failure with hypoxia O2 dependent Presence of arterial stent H/O Hampton's palsy Sinus tachycardia Hypertrophic obstructive cardiomyopathy (2020) Cardiac cath Hampton's palsy Depression PTSD (post-traumatic stress disorder) Chronic pain COPD exacerbation Pulmonary nodule CAD (coronary artery disease) HLD (hyperlipidemia) PAD (peripheral artery disease) HTN (hypertension) Anxiety Lung nodule seen on imaging study Surgical History Appendicolith S/P peripheral artery angioplasty with stent placement Family History Other Family history of hypertension Social History Smoking Status: Current every day smoker tobacco type: cigarettes packs per day: 1 second hand exposure: No alcohol intake: never substance use type: denies use current occupational status: retired Travel in the last 8 weeks: None household members: children and none housing: house lives independently: No Other Medical History Have you received the Flu Vaccine for this season: No Have you received the Pneumonia Vaccine: No ROS Obtained: Yes Systems reviewed as appropriate & no additional complaints except as documented Physical Exam General General appearance: alert and in no apparent distress Respiratory Respiratory exam: Present normal lung sounds bilaterally Cardiovascular Cardiovascular exam: Present regular rate Neurological Exam Neurological exam: Present alert and oriented X3 HEART Score HEART Score HEART Score assessment performed?: No Critical Care Critical Care Time Critical Care Time: No Medical Decision Making Medical Records Medical records reviewed: Yes I reviewed the patient's medical records. [place] Inquiry Pt receiving controlled substance: No Vital Signs Vital Signs: 04/04/24 18:20 04/04/24 18:30 04/04/24 20:00 Temperature 98.5 F 97.7 F Temperature Source Oral Oral Pulse Rate 58 L 71 Pulse Rate [Left] 61 Respiratory Rate 20 18 Blood Pressure 159/72 H 148/75 H Blood Pressure [Right Arm] 192/77 H Blood Pressure Mean 109 Blood Pressure Mean [Right Arm] 115 Blood Pressure Source Automatic Cuff Blood Pressure Source [Right Arm] Automatic Cuff Blood Pressure Position Sitting Blood Pressure Position [Right Arm] Sitting 02 Sat by Pulse Oximetry 99 100 Oxygen Delivery Method Room Air Nasal Cannula Oxygen Flow Rate (LPM) 3 Lab Data Lab results reviewed: Yes I reviewed the patient's lab results. Labs: Lab Results 04/04/24 18:19: WBC 5.6, RBC 3.76 L, Hgb 11.8 L, Hct 34.8 L, MCV 92.4, MCH 31.4 H, MCHC 34.0, RDW 12.4, Plt Count 181, MPV 9.4, Neut % (Auto) 63.9, Lymph % (Auto) 22.2, [place] % (Auto) 6.8, Eos % (Auto) 5.8, Baso % (Auto) 1.2, Neut # (Auto) 3.6, Lymph # (Auto) 1.3, [place] # (Auto) 0.4, Eos # (Auto) 0.3, Baso # (Auto) 0.1, Sodium 142, Potassium 4.1, Chloride 103, Carbon Dioxide 36 H, Anion Gap 7.1, BUN 16, Creatinine 0.90, Estimated Creat Clear 36, Estimated GFR 62, Est GFR ( Amer) 75, Glucose 114 H, Calcium 9.6, Total Bilirubin 0.5, AST 23, ALT 12, Alkaline Phosphatase 114, Total Protein 7.2, Albumin 3.9, Globulin 3.3 H, Albumin/Globulin Ratio 1.2 04/04/24 18:19 04/04/24 18:19 Response Orders (Tests/Meds): ED MEDICATIONS Discontinued Medications Generic Name Dose Route Start Last Admin Trade Name Freq PRN Reason Stop Dose Admin Acetaminophen 1,000 mg 04/04/24 18:28 04/04/24 18:39 Acetaminophen 500mg Tab PO 04/04/24 18:29 1,000 mg ONCE ONE Administration Belladonna Alkaloids 60 ml 04/04/24 18:28 04/04/24 18:39 Belladonna Alkaloids 60 Ml Ml PO 04/04/24 18:29 60 ml ONCE ONE Administration Iopamidol 80 ml 04/04/24 18:54 04/04/24 18:57 Iopamidol-370 (76%);100ml Bottle IV 04/04/24 18:55 80 ml ONCE ONE Administration Methocarbamol 500 mg 04/04/24 18:28 04/04/24 18:40 Methocarbamol 500mg Tablet PO 04/04/24 18:29 500 mg ONCE ONE Administration Sodium Chloride 50 ml 04/04/24 18:54 04/04/24 18:57 0.9 % Sodium Chloride 50 Ml Vial IV 04/04/24 18:55 50 ml ONCE ONE Administration Sodium Chloride 10 ml 04/04/24 18:54 04/04/24 18:55 Sodium Chloride 0.9% 10ml Syr (Rad Only) IV 05/04/24 18:53 10 ml NEEDED PRN Administration Maintain IV Site ORDERS Category Date Time Status CT angio abdomen pelvis Stat Cat Scan 04/04/24 18:28 Completed CBC w/Auto Diff [Complete Blood Count Auto Diff] Stat Lab 04/04/24 18:19 Completed CMP [Comprehensive Metabolic Panel] Stat Lab 04/04/24 18:19 Completed MDM Narrative Medical Decision Narrative: In summary patient is a 68-year-old female who presents to the emergency department for evaluation of abdominal pain. Patient is initially hypertensive with a blood pressure 192/77 with a heart rate of 61 respiratory rate of 20 satting at 99% on 3 L by nasal cannula upon arrival, afebrile. Physical exam is remarkable for a benign abdominal exam however patient reports tenderness to palpation in the bilateral lower quadrants without rebound or guarding or rigidity. Normal bowel sounds.. Differential diagnosis includes GERD versus constipation versus vascular cause etc. Initial workup will be conducted with CT a of the abdomen, urinalysis, hematologic labs. Initial interventions include Tylenol Toradol Zofran. Initial workup reviewed by me shows again her hematologic labs are nonactionable my informal interpretation of her CT scan abdomen pelvis does not show any acute vascular or other intra-abdominal pathology that would explain her symptoms. Upon repeat evaluation patient had acceptable resolution of her symptoms and is tolerating p.o. Given this patient is appropriate for discharge with referral to gastroenterology and PCP for further evaluation and care as we have essentially ruled out any acute serious life-threatening problem.
[2024-04-04 18:20] VITALS: BP 192/77; PULSE 61; RESP 20; TEMP 36.9; O2SAT 99; BMI 17.8
--- NOTE | 2024-04-04 18:28 | CT_ITS ---
PROCEDURE INFORMATION: Exam: CTA Abdomen and Pelvis With Contrast Exam date and time: 04/04/2024 6:57 PM Age: 68 years old Clinical indication: Abdominal pain; Generalized; Additional info: Lower abdominal pain TECHNIQUE: Imaging protocol: Computed tomographic angiography of the abdomen and pelvis with contrast. Exam focused on the arteries. 3D rendering (Not supervised by radiologist): MIP and/or 3D reconstructed images were created by the technologist. Radiation optimization: All CT scans at this facility use at least one of these dose optimization techniques: automated exposure control; mA and/or kV adjustment per patient size (includes targeted exams where dose is matched to clinical indication); or iterative reconstruction. Contrast material: ISOVUE 370; Contrast volume: 80 ml; Contrast route: INTRAVENOUS (IV); COMPARISON: CT ANGIO ABDOMEN PELVIS 10/28/2023 1:59 AM FINDINGS: Lungs: Centrilobular emphysema. Reticulations and mild peribronchial thickening in the lung bases. No airspace consolidation. 2 mm subpleural nodule in the right middle lobe (series 7, image 8) and 3 mm peripheral nodule in the right lower lobe (7, 13). Aorta: No aortic aneurysm. No aortic dissection. Celiac trunk and mesenteric arteries: No occlusion or significant stenosis. Renal arteries: No occlusion or significant stenosis. Right iliac arteries: Endovascular stents in both common iliac arteries and in the right external iliac artery are patent. Left iliac arteries: No occlusion or significant stenosis. Liver: No mass. Gallbladder and biliary ducts: No calcified stones. No ductal dilation. Pancreas: No mass. No ductal dilation. Spleen: No splenomegaly. No mass or surrounding fluid. Adrenal glands: No mass. Kidneys and ureters: No solid mass. No calcified stones or hydronephrosis. Stomach and bowel: Diverticulosis in the descending and sigmoid colon without evidence of diverticulitis. Appendix: No evidence of appendicitis. Intraperitoneal space: No free air. No significant fluid collection. Lymph nodes: No enlarged lymph nodes. Urinary bladder: No asymmetric bladder wall thickening or enhancement. Reproductive: No abnormalities as visualized. Bones/joints: No acute fracture or focal bone lesions. Soft tissues: No soft tissue masses. IMPRESSION: 1. No arterial stenoses or occlusions. No aortic aneurysm. Bilateral iliac artery stents are patent. 2. Diverticulosis in the descending and sigmoid colon without evidence of diverticulitis. 3. No acute findings in the abdomen and pelvis. 4. Lung nodules in the right lung base measure 3 mm or less. For patients at low risk (minimal or absent history of smoking and of other known risk factors), no routine follow-up is indicated. For patients at high risk (history of smoking or of other known risk factors), consider optional CT Chest at 12 months. (Reference: Jordyn) 5. Centrilobular emphysema. Prominent interstitial opacities likely due to respiratory bronchiolitis. Emphysema is an independent risk factor for lung cancer. Consider enrollment in a low-dose lung cancer screening program. REFERENCES: Jordyn Gallegos, et al. Guidelines for Management of Incidental Pulmonary Nodules Detected on CT Images: From the Fleischner Society 2017. Radiology. 2017;284(1):228-243.
[2024-04-04 18:30] VITALS: BP 159/72; PULSE 58; O2SAT 100
[2024-04-04] MEDS: ACETAMINOPHEN 500MG TAB 1000 MG PO (18:39)
[2024-04-04] MEDS: BELLADONNA ALKALOIDS 60 ML ML PO (18:39)
[2024-04-04] MEDS: METHOCARBAMOL 500MG TABLET 500 MG PO (18:40)
[2024-04-04 18:44] LABS: Basophils # 0.1 K/mm3 (0-0.2); Basophils % 1.2 % (0.1-2.0); Eosinophils # 0.3 K/mm3 (0.0-0.4); Eosinophils % 5.8 % (0.1-12.0); Hematocrit 34.8 % (37.0-47.0); Hemoglobin 11.8 g/dL (12.2-16.2); Lymphocytes # 1.3 K/mm3 (0.7-4.5); Lymphocytes % 22.2 % (10-50); Mean Corpuscular Hemoglobin 31.4 pg (27.0-31.2); Mean Corpuscular Volume 92.4 fl (81-99); Mean Platelet Volume 9.4 fl (7.4-10.4); Monocytes # 0.4 K/mm3 (0.1-1.0); Monocytes % 6.8 % (1.7-9.3); Neutrophils # 3.6 K/mm3 (1.8-7.8); Neutrophils % 63.9 % (37.0-80.0); Platelet Count 181 K/mm3 (142-424); Red Blood Count 3.76 M/mm3 (4.20-5.40); Red Cell Distribution Width 12.4 % (11.5-17.5); White Blood Count 5.6 K/mm3 (4.8-10.8)
[2024-04-04 18:49] LABS: Albumin Level 3.9 g/dl (3.5-5.0); Chloride 103 mmol/L (98-107); Potassium 4.1 mmoL/L (3.5-5.1); Sodium 142 mmol/L (136-145)
[2024-04-04 18:52] LABS: Alanine Aminotransferase 12 U/L (12-78); Albumin/Globulin Ratio 1.2 (1.1-1.8); Alkaline Phosphatase 114 U/L (38-126); Anion Gap 7.1 mEq/L (5-15); Aspartate Amino Transferase 23 U/L (14-36); Bilirubin,Total 0.5 mg/dl (0.2-1.3); Blood Urea Nitrogen 16 mg/dl (7-17); Carbon Dioxide 36 mmol/L (22.0-30.0); Creatinine Clearance Estimated 36 mL/min (50-200); Estimated Glomerular Filt Rate 62 ml/min (>60); GFR (African American) 75 ML/MIN (>60); Globulin 3.3 g/dL (1.3-3.2); Total Protein,Serum 7.2 g/dl (6.3-8.2)
[2024-04-04 18:53] LABS: Calcium 9.6 mg/dl (8.4-10.2); Glucose 114 mg/dl (74-100)
[2024-04-04] MEDS: SODIUM CHLORIDE 0.9% 10ML SYR (RAD ONLY) 10 ML IV (18:55)
[2024-04-04] MEDS: IOPAMIDOL-370 (76%);100ML BOTTLE 80 ML IV (18:57)
[2024-04-04] MEDS: 0.9 % SODIUM CHLORIDE 50 ML VIAL IV (18:57)
[2024-04-04 20:00] VITALS: BP 148/75; PULSE 71; RESP 18; TEMP 36.5; O2SAT 100
== END 2024-04-04 20:07 | disposition home or self-care (01) ==
PROVIDERS: Physician Assistant; Emergency Provider Emergency Medicine; PCP Nurse Practitioner Family
DX: R91.1 Solitary pulmonary nodule (principal); R10.9 Unspecified abdominal pain; R06.02 Shortness of breath
CPT/HCPCS: 74174; 80053; 85025; 99285; Q9967

== ENCOUNTER 2024-04-05 15:07 | Observation (INO) | payer MEDICARE, SELFPAY ==
[2024-04-05] VITALS (8 sets, daily range): BP systolic 139–197; BP diastolic 64–91; PULSE 70–79; RESP 13–23; TEMP 36.8; O2SAT 96–100; BMI 16.9
--- NOTE | 2024-04-05 15:15 | HMH.EDGENADL ---
Discharge Plan Disposition Patient Disposition: Admitted Condition: Good Clinical Impressions Clinical Impression: Acute UTI, Abdominal pain, Nausea Discharge ED Provider: Nitza Basilio General Adult HPI General Chief complaint: Abdominal Pain Stated complaint: ABD Pain Time Seen by Provider: 04/05/24 15:09 History of Present Illness HPI narrative: This patient is a 68-year-old female with a history of COPD chronic on home oxygen, CAD status post stenting, GERD, hypertension, hyperlipidemia, and diabetes presenting to the emergency department for evaluation with concern for abdominal pain. Patient was seen here yesterday as well as the day before for similar symptoms and workup on both those were reassuring. She was subsequently sent home after improvement in her symptoms, but she states that she is having burning down her lower abdomen and when she pees and thinks she may have a urinary tract infection. She also notes nausea and poor appetite. No vomiting, changes in bowel movements, or other concerns. Her abdominal pain is mostly lower. Related Data Home Medications ?Medication ?Instructions ?Recorded ?Confirmed aluminum-mag hydroxide-simethicone 5 ml PO Q3HP PRN Indigestion 03/10/24 03/20/24 200 mg-200 mg-20 mg/5 mL oral susp (Maalox Advanced) apixaban 2.5 mg tablet (Eliquis) 2.5 mg PO BID 03/10/24 03/20/24 meclizine 25 mg tablet 25 mg PO TID PRN 03/20/24 03/20/24 Previous Rx's ?Medication ?Instructions ?Recorded albuterol sulfate 90 mcg/actuation 2 puff inhalation Q4HP PRN 02/28/24 aerosol inhaler Shortness Of Breath #8.5 grams atorvastatin 10 mg tablet 10 mg PO HS Cholesterol #90 tabs 02/28/24 clopidogrel 75 mg tablet 75 mg PO DAILY #90 tabs 02/28/24 empagliflozin 10 mg tablet 10 mg PO DAILY #90 tabs 02/28/24 (Jardiance) fluticasone fur. 100 mcg-umeclid 1 inh inhalation DAILY #60 ea 02/28/24 62.5 mcg-vilant 25 mcg inhalat.powder (Trelegy Ellipta) gabapentin 600 mg tablet 600 mg PO BID #60 tabs 02/28/24 lisinopril 5 mg tablet 5 mg PO DAILY #90 tabs 09/25/24 metoprolol succinate 25 mg 25 mg PO DAILY #90 tabs 02/28/24 tablet,extended release 24 hr ondansetron 4 mg disintegrating 4 mg PO Q6H PRN nausea and 02/28/24 tablet vomiting #30 tabs pantoprazole 40 mg tablet,delayed 40 mg PO DAILY #90 tabs 02/28/24 release polyethylene glycol 3350 17 gram 17 g PO DAILY #100 ea 02/28/24 oral powder packet (Miralax) spironolactone 25 mg tablet 25 mg PO DAILY #90 tabs 02/28/24 calcium carbonate 1,200 mg (2 x 600 mg calcium 03/02/24 (1,500 mg)) PO DAILY #180 tabs cholecalciferol (vitamin D3) 1,250 1,250 mcg PO WEEKLY #12 caps 03/02/24 mcg (50,000 unit) capsule citalopram 10 mg tablet 20 mg (2 x 10 mg) PO DAILY #30 tabs 03/11/24 clonazepam 1 mg tablet 1 mg PO BID #60 tabs 03/28/24 cefdinir 300 mg capsule 300 mg PO BID 10 days #20 caps 04/05/24 metoclopramide HCl 10 mg tablet 10 mg PO Q6H PRN nausea and 04/05/24 (Reglan) vomiting #10 tabs phenazopyridine 200 mg tablet 200 mg PO Q8H PRN pain 6 doses #6 04/05/24 (Pyridium) tabs Allergies Allergy/AdvReac Type Severity Reaction Status Date / Time levofloxacin Allergy Intermediate blisters Verified 03/20/24 13:48 in mouth, diarrhea Sulfa (Sulfonamide Allergy Unknown Verified 03/20/24 13:48 Antibiotics) [facility] Disclaimer: The information contained in this section may have been updated after the patient was seen, as this information can be updated by other users. Medical History Foraminal stenosis of cervical region Facet arthropathy, cervical Degenerative disc disease, cervical Impingement syndrome of right shoulder Chronic pain syndrome Osteopenia Chronic abdominal pain Constipation Chronic GERD Memory loss Cerebral ventriculomegaly Insomnia Paroxysmal atrial fibrillation with rapid ventricular response Anxiety Acute exacerbation of chronic obstructive pulmonary disease Acute hypoxic respiratory failure Acute cystitis Suprapubic abdominal pain Nausea Gastritis Nausea Nausea Cough Vitamin D deficiency Pneumonia Decreased muscle strength Unsteady gait Respiratory failure with hypoxia and hypercapnia COPD exacerbation Encounter for screening for malignant neoplasm of lung Family history of asthma COPD mixed type Smoking greater than 30 pack years SOB (shortness of breath) on exertion Chronic respiratory failure with hypoxia Presence of arterial stent H/O Hampton's palsy Sinus tachycardia Hypertrophic obstructive cardiomyopathy Hampton's palsy Depression PTSD (post-traumatic stress disorder) Chronic pain COPD exacerbation Pulmonary nodule CAD (coronary artery disease) HLD (hyperlipidemia) PAD (peripheral artery disease) HTN (hypertension) Anxiety Lung nodule seen on imaging study Surgical History Appendicolith S/P peripheral artery angioplasty with stent placement Family History Other Family history of hypertension Social History (Updated 04/05/24 @ 21:25 by Ena Rosas RN) Smoking Status: Current every day smoker tobacco type: cigarettes packs per day: 1 second hand exposure: No alcohol intake: never substance use type: denies use current occupational status: retired Travel in the last 8 weeks: None household members: children and none housing: house lives independently: No Other Medical History Have you received the Flu Vaccine for this season: No Have you received the Pneumonia Vaccine: No ROS Obtained: Yes All systems reviewed & no additional complaints except as documented Physical Exam General General appearance: alert and in no apparent distress Head Head exam: atraumatic and normocephalic Eye Eye exam: Present normal appearance, PERRL and EOMI ENT ENT exam: Present normal exam, normal oropharynx, mucous membranes moist and normal external ear exam Neck Neck exam: Present normal inspection, full ROM and trachea midline; Absent tenderness Chest Chest inspection: Present normal inspection and symmetric chest wall rise; Absent tenderness Respiratory Respiratory exam: Present normal lung sounds bilaterally; Absent respiratory distress, wheezes, stridor or accessory muscle use Cardiovascular Cardiovascular exam: Present regular rate and normal rhythm Abdominal Exam Abdominal exam: Present soft and tenderness (suprapubic); Absent distention, guarding, rebound or rigidity Extremities Exam Extremities exam: Present normal inspection, full ROM and normal capillary refill; Absent tenderness or edema Back Exam Back exam: Present normal inspection and full ROM; Absent tenderness Neurological Exam Neurological exam: Present alert, oriented X3, CN II-XII intact and normal gait; Absent motor sensory deficit Psychiatric Psychiatric exam: Present normal affect and normal mood Skin Skin exam: Present warm and dry Medical Decision Making Medical Records Medical records reviewed: Yes I reviewed the patient's medical records. Screening: Per USPSTF and CDC recommendations, given the prevalence of disease in our region, it is our hospital?s policy to screen for HIV and viral Hepatitis for all patients aged 18 and over and those with ongoing risk factors. [place] Inquiry Pt receiving controlled substance: No Vital Signs: 04/05/24 15:08 04/05/24 16:00 04/05/24 16:30 Temperature 98.2 F Temperature Source Oral Pulse Rate 72 70 Pulse Rate [Right Radial] 74 Respiratory Rate 18 13 23 Blood Pressure 166/73 H 162/72 H Blood Pressure [Right Arm] 139/64 Blood Pressure Mean [Right Arm] 89 Blood Pressure Source Blood Pressure Source [Right Arm] Automatic Cuff Blood Pressure Position Blood Pressure Position [Right Arm] Sitting 02 Sat by Pulse Oximetry 98 96 99 Oxygen Delivery Method Nasal Cannula Oxygen Flow Rate (LPM) 3 04/05/24 17:00 04/05/24 17:30 04/05/24 18:00 Temperature Temperature Source Pulse Rate 72 70 Pulse Rate [Right Radial] Respiratory Rate 14 17 14 Blood Pressure 164/69 H 149/68 H 170/73 H Blood Pressure [Right Arm] Blood Pressure Mean [Right Arm] Blood Pressure Source Blood Pressure Source [Right Arm] Blood Pressure Position Blood Pressure Position [Right Arm] 02 Sat by Pulse Oximetry 97 100 Oxygen Delivery Method Oxygen Flow Rate (LPM) 04/05/24 18:30 04/05/24 20:41 Temperature 98.2 F Temperature Source Oral Pulse Rate 79 Pulse Rate [Right Radial] Respiratory Rate 20 18 Blood Pressure 169/75 H 197/91 H Blood Pressure [Right Arm] Blood Pressure Mean [Right Arm] Blood Pressure Source Automatic Cuff Blood Pressure Source [Right Arm] Blood Pressure Position Sitting Blood Pressure Position [Right Arm] 02 Sat by Pulse Oximetry Oxygen Delivery Method Nasal Cannula Oxygen Flow Rate (LPM) 3 Lab Data Lab results reviewed: Yes I reviewed the patient's lab results. Lab Results 04/05/24 15:40: WBC 4.4 L, RBC 3.60 L, Hgb 10.9 L, Hct 33.3 L, MCV 92.6, MCH 30.2, MCHC 32.6, RDW 12.4, Plt Count 178, MPV 9.3, Neut % (Auto) 64.9, Lymph % (Auto) 22.8, [place] % (Auto) 5.8, Eos % (Auto) 5.3, Baso % (Auto) 1.2, Neut # (Auto) 2.8, Lymph # (Auto) 1.0, [place] # (Auto) 0.3, Eos # (Auto) 0.2, Baso # (Auto) 0.1, Sodium 141, Potassium 3.8, Chloride 102, Carbon Dioxide 39 H, Anion Gap 3.8 L, BUN 13, Creatinine 0.90, Estimated Creat Clear 35, Estimated GFR 62, Est GFR ( Amer) 75, Glucose 127 H, Lactate 0.8, Calcium 9.4, Total Bilirubin 0.5, AST 19, ALT 11 L, Alkaline Phosphatase 95, Troponin I < 0.01, Total Protein 6.7, Albumin 3.7, Globulin 3.0, Albumin/Globulin Ratio 1.2, Lipase 62 04/05/24 17:05: Urine Color Yellow, Urine Appearance Clear, Urine pH 7.0, Ur Specific [place] 1.020, Urine Protein 2+ A, Urine Glucose (UA) Negative, Urine Ketones Trace, Urine Blood 2+ A, Urine Nitrate Negative, Urine Bilirubin Negative, Urine Urobilinogen 0.2, Ur Leukocyte Esterase 1+ A, Urine RBC 10-20, Urine WBC Tntc, Ur Squamous Epith Cells 5-10, Urine Bacteria 3+, Urine Mucus 2+ 04/05/24 15:40 04/05/24 15:40 Orders (Tests/Meds): ED MEDICATIONS Generic Name Dose Route Start Last Admin Trade Name Patel PRN Reason Stop Dose Admin Hydrocodone Bitart/Acetaminophen 1 tab 04/05/24 20:29 04/05/24 21:54 Hydrocodone/Apap 5/325 Mg Tablet PO 05/05/24 20:28 1 tab Q4HP PRN Administration Mild to Moderate Pain (1-6) Ceftriaxone Sodium 1 gm/ 50 mls @ 100 mls/hr 04/05/24 22:15 04/05/24 22:51 Sodium Chloride IV 04/15/24 22:14 100 mls/hr Q24H LEONARD Administration Ondansetron HCl 4 mg 04/05/24 20:29 04/05/24 21:54 Ondansetron 4mg/2ml Vial IV 05/05/24 20:28 4 mg Q8HP PRN Administration Nausea Discontinued Medications Generic Name Dose Route Start Last Admin Trade Name Freq PRN Reason Stop Dose Admin Acetaminophen 1,000 mg 04/05/24 15:19 04/05/24 15:53 Acetaminophen 500mg Tab PO 04/05/24 15:20 1,000 mg ONCE ONE Administration Ceftriaxone Sodium 2 gm/ 100 mls @ 200 mls/hr 04/05/24 18:00 04/05/24 18:20 Sodium Chloride IV 04/05/24 18:29 200 mls/hr ONCE ONE Administration Ketorolac Tromethamine 15 mg 04/05/24 15:19 04/05/24 15:53 Ketorolac 30mg/Ml Vial IV 04/05/24 15:20 15 mg ONCE ONE Administration Metoclopramide HCl 10 mg 04/05/24 18:41 04/05/24 19:09 Metoclopramide Hcl 10mg/2ml Vial IVP 04/05/24 18:42 10 mg ONCE ONE Administration Ondansetron HCl 4 mg 04/05/24 15:19 04/05/24 15:53 Ondansetron 4mg/2ml Vial IV 04/05/24 15:20 4 mg ONCE ONE Administration Phenazopyridine HCl 200 mg 04/05/24 17:59 04/05/24 18:20 Phenazopyridine 200mg Tablet PO 04/05/24 18:00 200 mg ONCE ONE Administration ORDERS Category Date Time Status Basic Metabolic Panel AMLAB Lab 04/06/24 06:00 Ordered Basic Metabolic Panel AMLAB Lab 04/07/24 06:00 Ordered Basic Metabolic Panel AMLAB Lab 04/08/24 06:00 Ordered Basic Metabolic Panel AMLAB Lab 04/09/24 06:00 Ordered Complete Blood Count Auto Diff AMLAB Lab 04/06/24 06:00 Ordered Complete Blood Count Auto Diff AMLAB Lab 04/07/24 06:00 Ordered Complete Blood Count Auto Diff AMLAB Lab 04/08/24 06:00 Ordered Complete Blood Count Auto Diff AMLAB Lab 04/09/24 06:00 Ordered Complete Blood Count Auto Diff AMLAB Lab 04/10/24 06:00 Ordered Complete Blood Count Auto Diff Stat Lab 04/05/24 15:40 Completed Comprehensive Metabolic Panel Stat Lab 04/05/24 15:40 Completed Lactic Acid Stat Lab 04/05/24 15:40 Completed Lipase Stat Lab 04/05/24 15:40 Completed Trop I [Troponin I] Stat Lab 04/05/24 15:40 Completed UA [Urinalysis and Microscopic] Stat Lab 04/05/24 17:05 Completed Urine Culture Stat Micro 04/05/24 17:05 Received ECG Data Tracing #1: I reviewed this ECG and interpreted as documented below: Sinus rhythm with a ventricular rate of 74 bpm. Motion artifact from respiration significantly degrades study. No obvious acute ST changes concerning for ischemia. ECG initial impression date: 04/05/24 ECG initial impression time: 15:32 Medical Decision Narrative: In summary, this patient is a 68-year-old presenting to the Emergency Department for evaluation of lower abdominal pain and burning when she pees. Differential diagnoses considered include but are not limited to cystitis, pyelonephritis, ureterolithiasis, colitis, gastritis. Ruling out the most morbid conditions drove assessment. It should be noted patient's history includes COPD, hypertension, hyperlipidemia, diabetes, CAD which may or may not be at goal therapy. This complicates all aspects of care by increasing patient's risk for morbidity. I reviewed patient's past medical records and noted evaluation here 2 days ago and yesterday as per HPI. She had CT scan of the abdomen with contrast performed [address] and had [address] angiogram of the abdomen and pelvis performed yesterday. She was not found to have any acutely concerning abnormalities on imaging. Labs were reassuring, urine on 04/03 not concerning for infection. Based on reassuring workups x 2, patient was deemed to be. For discharge home with close follow-up as an outpatient. It is unclear what is causing her symptoms. On exam, the patient is lying in bed in no acute distress. She has suprapubic abdominal tenderness but no rebound or guarding. No rigidity. She is nontoxic-appearing. Workup included CBC, CMP, lipase, lactic acid, troponin, EKG, urinalysis, urine culture. She was given IV Toradol, oral Tylenol for symptomatic improvement. I considered obtaining imaging such as CT scan of the abdomen, however she has had reassuring imaging twice over the last 3 days. Urine is concerning for infection, but labs are otherwise reassuring with no significant leukocytosis or RONI. All multiple subsequent reassessments, patient complains of continued nausea. She was treated with Zofran and then Reglan and had no vomiting but continued to be significantly nauseated. She was treated with IV Rocephin for UTI. Urine culture was sent and is pending. I had shared decision-making with the patient and the family and ultimately they do not feel comfortable with discharge home because the patient keeps having intractable symptoms at home and bouncing back. Given this, I had shared decision-making with the patient's family and the patient was admitted in stable condition. Critical Care Critical Care Time Critical Care Time: No
--- NOTE | 2024-04-05 15:20 | ECG_ITS ---
APPROVED REPORT Exam: Resting ECG HR:74 bpm ECG Measurements Heart Rate 74 AXES WA 138 P 83 QRSd 90 QRS 87 QT 464 T 82 QTc 492 Conclusion SINUS RHYTHM WITH OCCASIONAL VENTRICULAR PREMATURE COMPLEXES POSSIBLE RIGHT ATRIAL ENLARGEMENT [0.25mV P-WAVE] POSSIBLE RIGHT VENTRICULAR CONDUCTION DELAY [RSR (QR) IN V1/V2] MODERATE T-WAVE ABNORMALITY, CONSIDER INFERIOR ISCHEMIA [-0.1+ mV T-WAVE IN II/aVF] Motion artifact Electronically signed by : KATT SZYMANSKI, 04/09/2024 15:29:57
[2024-04-05 15:51] LABS: Basophils # 0.1 K/mm3 (0-0.2); Basophils % 1.2 % (0.1-2.0); Eosinophils # 0.2 K/mm3 (0.0-0.4); Eosinophils % 5.3 % (0.1-12.0); Hematocrit 33.3 % (37.0-47.0); Hemoglobin 10.9 g/dL (12.2-16.2); Lymphocytes % 22.8 % (10-50); Mean Corpuscular HGB Conc 32.6 g/dL (31.8-35.4); Mean Corpuscular Hemoglobin 30.2 pg (27.0-31.2); Mean Corpuscular Volume 92.6 fl (81-99); Mean Platelet Volume 9.3 fl (7.4-10.4); Monocytes # 0.3 K/mm3 (0.1-1.0); Monocytes % 5.8 % (1.7-9.3); Neutrophils # 2.8 K/mm3 (1.8-7.8); Neutrophils % 64.9 % (37.0-80.0); Platelet Count 178 K/mm3 (142-424); Red Cell Distribution Width 12.4 % (11.5-17.5); White Blood Count 4.4 K/mm3 (4.8-10.8)
[2024-04-05] MEDS: KETOROLAC 30MG/ML VIAL 15 MG IV (15:53)
[2024-04-05] MEDS: ONDANSETRON 4MG/2ML VIAL 4 MG IV ×2 (15:53→21:54)
[2024-04-05] MEDS: ACETAMINOPHEN 500MG TAB 1000 MG PO (15:53)
[2024-04-05 15:56] LABS: Lactic Acid 0.8 mmol/L (0.7-2.1)
[2024-04-05 15:59] LABS: Albumin Level 3.7 g/dl (3.5-5.0); Chloride 102 mmol/L (98-107); Potassium 3.8 mmoL/L (3.5-5.1); Sodium 141 mmol/L (136-145)
[2024-04-05 16:01] LABS: Alanine Aminotransferase 11 U/L (12-78); Aspartate Amino Transferase 19 U/L (14-36); Blood Urea Nitrogen 13 mg/dl (7-17); Creatinine Clearance Estimated 35 mL/min (50-200); Estimated Glomerular Filt Rate 62 ml/min (>60); GFR (African American) 75 ML/MIN (>60)
[2024-04-05 16:02] LABS: Albumin/Globulin Ratio 1.2 (1.1-1.8); Alkaline Phosphatase 95 U/L (38-126); Anion Gap 3.8 mEq/L (5-15); Bilirubin,Total 0.5 mg/dl (0.2-1.3); Calcium 9.4 mg/dl (8.4-10.2); Carbon Dioxide 39 mmol/L (22.0-30.0); Glucose 127 mg/dl (74-100); Lipase 62 U/L (23-300); Total Protein,Serum 6.7 g/dl (6.3-8.2)
[2024-04-05 17:14] LABS: Microscopic, Urine URINE MICROSCOPIC (MICROSCOPIC)
[2024-04-05 17:16] LABS: Appearance,Urine CLEAR (Clear); Blood, Urine 2+ (Negative); Color,Urine YELLOW (Yellow); Glucose,Urine (UA) Negative (Negative); Ketones,Urine TRACE (Negative); Leukocyte Esterase,Urine 1+ (Negative); Nitrate,Urine Negative (Negative); Protein,Urine 2+ (Negative); Urobilinogen,Urine 0.2 EU/dl (0.2)
[2024-04-05 17:23] LABS: Bilirubin,Urine Negative (Negative)
[2024-04-05 17:44] LABS: WBC,Urine TNTC #/hpf (0-3)
[2024-04-05 17:45] LABS: Bacteria,Urine 3+ /lpf; Mucus,Urine 2+ /lpf
[2024-04-05] MEDS: CEFTRIAXONE SODIUM 2 GM in 0.9 % SODIUM CHLORIDE 100 ML IV (18:20)
[2024-04-05] MEDS: PHENAZOPYRIDINE 200MG TABLET 200 MG PO (18:20)
[2024-04-05] MEDS: METOCLOPRAMIDE HCL 10MG/2ML VIAL 10 MG IVP (19:09)
[2024-04-05 19:47] LABS: Troponin I < 0.01 ng/ml (0.00-0.034)
--- NOTE | 2024-04-05 20:03 | PC.NURSE ---
Spoke with [place] for bed request.
--- NOTE | 2024-04-05 20:29 | PC.NURSE ---
Report called to Sheri KING
--- NOTE | 2024-04-05 20:45 | PC.NURSE ---
PT ARRIVED TO FLOOR AT THIS TIME
[2024-04-05] MEDS: HYDROCODONE/APAP 5/325 MG TABLET 1 TAB PO (21:54)
--- NOTE | 2024-04-05 22:01 | P.HP_ITS ---
History of Present Illness *Admission Date: 04/05/24 *Reason for visit:: abdomminal pain *History of present illness: Patient is a 68-year-old female with past medical history of paroxysmal atrial fibrillation, ischemic cardiomyopathy, COPD, CAD, PAD who presents to the hospital due to complaints of lower abdominal pain, nausea. According to patient she has been feeling sick for the past few days, she has not been improving, she also had frequent ED visits for the same complaint, she complains of burning urination. In the emergency department patient was evaluated for urinary tract infection which did show questionable UTI. [facility] Disclaimer: The information contained in this section may have been updated after the patient was seen, as this information can be updated by other users. Medical History Foraminal stenosis of cervical region Facet arthropathy, cervical Degenerative disc disease, cervical Impingement syndrome of right shoulder Chronic pain syndrome Osteopenia Chronic abdominal pain Constipation Chronic GERD Memory loss Cerebral ventriculomegaly Insomnia Paroxysmal atrial fibrillation with rapid ventricular response Anxiety Acute exacerbation of chronic obstructive pulmonary disease Acute hypoxic respiratory failure Acute cystitis Suprapubic abdominal pain Nausea Gastritis Nausea Nausea Cough Vitamin D deficiency Pneumonia Decreased muscle strength Unsteady gait Respiratory failure with hypoxia and hypercapnia COPD exacerbation Encounter for screening for malignant neoplasm of lung Family history of asthma COPD mixed type Smoking greater than 30 pack years SOB (shortness of breath) on exertion Chronic respiratory failure with hypoxia Presence of arterial stent H/O Hampton's palsy Sinus tachycardia Hypertrophic obstructive cardiomyopathy Hampton's palsy Depression PTSD (post-traumatic stress disorder) Chronic pain COPD exacerbation Pulmonary nodule CAD (coronary artery disease) HLD (hyperlipidemia) PAD (peripheral artery disease) HTN (hypertension) Anxiety Lung nodule seen on imaging study Surgical History Appendicolith S/P peripheral artery angioplasty with stent placement Family History Other Family history of hypertension Social History (Updated 04/05/24 @ 21:25 by Ena Rosas RN) Smoking Status: Current every day smoker tobacco type: cigarettes packs per day: 1 second hand exposure: No alcohol intake: never substance use type: denies use current occupational status: retired Travel in the last 8 weeks: None household members: children and none housing: house lives independently: No Other Medical History Have you received the Flu Vaccine for this season: No Have you received the Pneumonia Vaccine: No Review of Systems Review of Systems Review of systems:: pertinent systems reviewed and negative unless documented below Meds Home Medications and Allergies Home Medications ?Medication ?Instructions ?Recorded ?Confirmed ?Type albuterol sulfate 90 mcg/actuation 2 puff inhalation Q4HP PRN 02/28/24 03/20/24 Rx aerosol inhaler Shortness Of Breath #8.5 grams atorvastatin 10 mg tablet 10 mg PO HS Cholesterol #90 tabs 02/28/24 03/20/24 Rx clopidogrel 75 mg tablet 75 mg PO DAILY #90 tabs 02/28/24 03/20/24 Rx empagliflozin 10 mg tablet 10 mg PO DAILY #90 tabs 02/28/24 03/20/24 Rx (Jardiance) fluticasone fur. 100 mcg-umeclid 1 inh inhalation DAILY #60 ea 02/28/24 03/20/24 Rx 62.5 mcg-vilant 25 mcg inhalat.powder (Trelegy Ellipta) gabapentin 600 mg tablet 600 mg PO BID #60 tabs 02/28/24 03/20/24 Rx lisinopril 5 mg tablet 5 mg PO DAILY #90 tabs 02/28/24 03/20/24 Rx metoprolol succinate 25 mg 25 mg PO DAILY #90 tabs 02/28/24 03/20/24 Rx tablet,extended release 24 hr ondansetron 4 mg disintegrating 4 mg PO Q6H PRN nausea and 02/28/24 03/20/24 Rx tablet vomiting #30 tabs pantoprazole 40 mg tablet,delayed 40 mg PO DAILY #90 tabs 02/28/24 03/20/24 Rx release polyethylene glycol 3350 17 gram 17 g PO DAILY #100 ea 02/28/24 03/20/24 Rx oral powder packet (Miralax) spironolactone 25 mg tablet 25 mg PO DAILY #90 tabs 02/28/24 03/20/24 Rx calcium carbonate 1,200 mg (2 x 600 mg calcium 03/02/24 03/20/24 Rx (1,500 mg)) PO DAILY #180 tabs cholecalciferol (vitamin D3) 1,250 1,250 mcg PO WEEKLY #12 caps 03/02/24 03/20/24 Rx mcg (50,000 unit) capsule aluminum-mag hydroxide-simethicone 5 ml PO Q3HP PRN Indigestion 03/10/24 03/20/24 History 200 mg-200 mg-20 mg/5 mL oral susp (Maalox Advanced) apixaban 2.5 mg tablet (Eliquis) 2.5 mg PO BID 03/10/24 03/20/24 History citalopram 10 mg tablet 20 mg (2 x 10 mg) PO DAILY #30 tabs 03/11/24 03/20/24 Rx meclizine 25 mg tablet 25 mg PO TID PRN 03/20/24 03/20/24 History clonazepam 1 mg tablet 1 mg PO BID #60 tabs 03/28/24 Rx cefdinir 300 mg capsule 300 mg PO BID 10 days #20 caps 04/05/24 Rx metoclopramide HCl 10 mg tablet 10 mg PO Q6H PRN nausea and 04/05/24 Rx (Reglan) vomiting #10 tabs phenazopyridine 200 mg tablet 200 mg PO Q8H PRN pain 6 doses #6 04/05/24 Rx (Pyridium) tabs New Prescriptions to Start Prescriptions: cefdinir Nitza Basilio metoclopramide HCl [Reglan] Nitza Basilio phenazopyridine [Pyridium] Nitza Basilio Allergies Allergy/AdvReac Type Severity Reaction Status Date / Time levofloxacin Allergy Intermediate blisters Verified 03/20/24 13:48 in mouth, diarrhea Sulfa (Sulfonamide Allergy Unknown Verified 03/20/24 13:48 Antibiotics) Exam Data for Last 24 hours Vital signs and Labs for Last 24 Hours: Temp Pulse Resp BP Pulse Ox O2 Del Method O2 Flow Rate 98.2 F 79 18 197/91 H 100 Nasal Cannula 3 04/05/24 20:41 04/05/24 20:41 04/05/24 20:41 04/05/24 20:41 04/05/24 17:30 04/05/24 20:41 04/05/24 20:41 Laboratory Results - last 24 hr 04/05/24 15:40: WBC 4.4 L, RBC 3.60 L, Hgb 10.9 L, Hct 33.3 L, MCV 92.6, MCH 30.2, MCHC 32.6, RDW 12.4, Plt Count 178, MPV 9.3, Neut % (Auto) 64.9, Lymph % (Auto) 22.8, [place] % (Auto) 5.8, Eos % (Auto) 5.3, Baso % (Auto) 1.2, Neut # (Auto) 2.8, Lymph # (Auto) 1.0, [place] # (Auto) 0.3, Eos # (Auto) 0.2, Baso # (Auto) 0.1, Sodium 141, Potassium 3.8, Chloride 102, Carbon Dioxide 39 H, Anion Gap 3.8 L, BUN 13, Creatinine 0.90, Estimated Creat Clear 35, Estimated GFR 62, Est GFR ( Amer) 75, Glucose 127 H, Lactate 0.8, Calcium 9.4, Total Bilirubin 0.5, AST 19, ALT 11 L, Alkaline Phosphatase 95, Troponin I < 0.01, Total Protein 6.7, Albumin 3.7, Globulin 3.0, Albumin/Globulin Ratio 1.2, Lipase 62 04/05/24 17:05: Urine Color Yellow, Urine Appearance Clear, Urine pH 7.0, Ur Specific [place] 1.020, Urine Protein 2+ A, Urine Glucose (UA) Negative, Urine Ketones Trace, Urine Blood 2+ A, Urine Nitrate Negative, Urine Bilirubin Negative, Urine Urobilinogen 0.2, Ur Leukocyte Esterase 1+ A, Urine RBC 10-20, Urine WBC Tntc, Ur Squamous Epith Cells 5-10, Urine Bacteria 3+, Urine Mucus 2+ I & O for Last 24 hours: Intake & Output 04/02/24 04/03/24 04/04/24 04/05/24 23:59 23:59 23:59 23:59 Weight 42.184 kg Constitutional Constitutional: no acute distress *Routine HEENT Exam Head: Present normocephalic Eye: Present EOMI and PERRL ENT: Present mucous membranes moist *Routine Neck Exam Neck: Present supple; Absent lymphadenopathy *Routine Respiratory Exam Respiratory: Present CTA bilaterally *Routine Cardiovascular Exam Cardiovascular: Present RRR *Routine Abdominal Exam Abdominal: Present soft and normoactive bowel sounds; Absent tenderness *Routine Rectal Exam Rectal:: deferred *Routine Genitalia Exam Genitalia:: deferred *Routine Extremities Exam Extremities: Absent cyanosis, clubbing or edema *Routine Skin Exam Skin: Present warm; Absent rash *Routine Neurological Exam Neurological: Present alert and oriented X3 Assessment and Plan *Assessment and plan (1) Nausea: Status: Acute Category: Medical Code(s): R11.0 - Nausea (2) Acute UTI: Status: Acute Category: Medical Code(s): N39.0 - Urinary tract infection, site not specified (3) Paroxysmal atrial fibrillation: Problem Comment: Established with [facility] cardiology Status: Acute Category: Medical Code(s): I48.0 - Paroxysmal atrial fibrillation (4) CAD (coronary artery disease): Status: Chronic Qualifiers: Coronary Disease-Associated Artery/Lesion type: [place] artery [place] vs. transplanted heart: [place] heart Associated angina: without angina Qualified Code(s): I25.10 - Atherosclerotic heart disease of [place] coronary artery without angina pectoris Category: Medical Code(s): I25.10 - Atherosclerotic heart disease of [place] coronary artery without angina pectoris (5) PAD (peripheral artery disease): Status: Chronic Category: Medical Code(s): I73.9 - Peripheral vascular disease, unspecified (6) Hypertension: Status: Chronic Qualifiers: Hypertension type: primary hypertension Qualified Code(s): I10 - Essential (primary) hypertension Category: Medical Code(s): I10 - Essential (primary) hypertension Plan Patient is a 68-year-old female with past medical history of paroxysmal atrial fibrillation, ischemic cardiomyopathy, COPD, CAD, PAD who presents to the hospital due to complaints of lower abdominal pain, nausea. According to patient she has been feeling sick for the past few days, she has not been improving, she also had frequent ED visits for the same complaint, she complains of burning urination. In the emergency department patient was evaluated for urinary tract infection which did show questionable UTI. Assessment and plan Lower abdominal pain, nausea likely due to UTI CT abdomen pelvis was performed 2 days ago, negative for acute pathology in abdomen and pelvis Started on IV Rocephin Follow-up on urine cultures Chronic medical conditions CAD PAD Paroxysmal atrial fibrillation Hypertension Hyperlipidemia COPD on 3L NC at home Resume home Eliquis, lisinopril, DuoNeb as needed, atorvastatin, Plavix, Neurontin, metoprolol, Aldactone DVT prophylaxis-on Eliquis
[2024-04-05] MEDS: CEFTRIAXONE 1 GM 1 GM in 0.9 % SODIUM CHLORIDE 50 ML IV (22:51)
[2024-04-06 04:00] VITALS: BP 142/70; PULSE 65; RESP 14; TEMP 36.9; O2SAT 98; BMI 17.7
[2024-04-06] MEDS: ONDANSETRON 4MG/2ML VIAL 4 MG IV (06:08)
[2024-04-06 06:40] LABS: Basophils # 0.1 K/mm3 (0-0.2); Basophils % 1.1 % (0.1-2.0); Eosinophils # 0.3 K/mm3 (0.0-0.4); Eosinophils % 4.2 % (0.1-12.0); Hematocrit 31.5 % (37.0-47.0); Hemoglobin 10.6 g/dL (12.2-16.2); Lymphocytes # 1.2 K/mm3 (0.7-4.5); Lymphocytes % 18.8 % (10-50); Mean Corpuscular HGB Conc 33.6 g/dL (31.8-35.4); Mean Corpuscular Hemoglobin 31.2 pg (27.0-31.2); Mean Corpuscular Volume 92.7 fl (81-99); Mean Platelet Volume 9.5 fl (7.4-10.4); Monocytes # 0.5 K/mm3 (0.1-1.0); Monocytes % 8.4 % (1.7-9.3); Neutrophils # 4.1 K/mm3 (1.8-7.8); Neutrophils % 67.6 % (37.0-80.0); Platelet Count 164 K/mm3 (142-424); Red Cell Distribution Width 12.4 % (11.5-17.5); White Blood Count 6.1 K/mm3 (4.8-10.8)
[2024-04-06 06:47] LABS: Chloride 105 mmol/L (98-107); Potassium 3.5 mmoL/L (3.5-5.1); Sodium 143 mmol/L (136-145)
[2024-04-06 06:50] LABS: Anion Gap 6.5 mEq/L (5-15); Blood Urea Nitrogen 17 mg/dl (7-17); Calcium 8.7 mg/dl (8.4-10.2); Carbon Dioxide 35 mmol/L (22.0-30.0); Creatinine Clearance Estimated 37 mL/min (50-200); Estimated Glomerular Filt Rate 62 ml/min (>60); GFR (African American) 75 ML/MIN (>60); Glucose 114 mg/dl (74-100)
[2024-04-06 08:00] VITALS: BP 153/72; PULSE 80; RESP 20; TEMP 36.6; O2SAT 96
--- NOTE | 2024-04-06 08:30 | PC.NURSE ---
MED REC COMPLETED PER DAUGHTER FERN.
--- NOTE | 2024-04-06 08:45 | HMH.PHAINT1 ---
Pharmacy Intervention Comments: MEDICATION RECONCILIATION COMPLETED ON PATIENT USING EXTERNAL FILL HISTORY FROM PHARMACY. -LORI PAPPAS, JARRODD
[2024-04-06] MEDS: APIXABAN 5MG TABLET 2.5 MG PO ×2 (09:36→20:00)
[2024-04-06] MEDS: CITALOPRAM 20MG TABLET 20 MG PO (11:00)
[2024-04-06] MEDS: METOPROLOL SUCCINATE XL 25MG TABLET 25 MG PO (11:00)
[2024-04-06] MEDS: clonazePAM 1MG TABLET 1 MG PO ×2 (11:00→20:00)
[2024-04-06] MEDS: CLOPIDOGREL 75MG TAB 75 MG PO (11:00)
[2024-04-06] MEDS: GABAPENTIN 600MG TABLET 600 MG PO ×2 (11:00→20:00)
[2024-04-06] MEDS: PANTOPRAZOLE 40MG TABLET 40 MG PO (11:00)
[2024-04-06] MEDS: LISINOPRIL 5MG TABLET 5 MG PO (11:00)
[2024-04-06] MEDS: CEFTRIAXONE 1 GM 1 GM in 0.9 % SODIUM CHLORIDE 50 ML IV (14:59)
[2024-04-06 16:00] VITALS: BP 163/79; PULSE 73; RESP 19; TEMP 36.8; O2SAT 96
--- NOTE | 2024-04-06 16:24 | EXP.PN ---
Subjective *Date: 04/06/24 *Time: 16:24 Exam Data for Last 24 hours Vital signs and Labs for Last 24 Hours: Temp Pulse Resp BP Pulse Ox O2 Del Method O2 Flow Rate 97.9 F 80 20 153/72 H 96 Nasal Cannula 2 04/06/24 08:00 04/06/24 08:00 04/06/24 08:00 04/06/24 08:00 04/06/24 08:00 04/06/24 15:00 04/06/24 15:00 Laboratory Results - last 24 hr 04/05/24 15:40: Troponin I < 0.01 04/05/24 17:05: Urine Color Yellow, Urine Appearance Clear, Urine pH 7.0, Ur Specific [place] 1.020, Urine Protein 2+ A, Urine Glucose (UA) Negative, Urine Ketones Trace, Urine Blood 2+ A, Urine Nitrate Negative, Urine Bilirubin Negative, Urine Urobilinogen 0.2, Ur Leukocyte Esterase 1+ A, Urine RBC 10-20, Urine WBC Tntc, Ur Squamous Epith Cells 5-10, Urine Bacteria 3+, Urine Mucus 2+ 04/06/24 06:28: WBC 6.1 D, RBC 3.40 L, Hgb 10.6 L, Hct 31.5 L, MCV 92.7, MCH 31.2, MCHC 33.6, RDW 12.4, Plt Count 164, MPV 9.5, Neut % (Auto) 67.6, Lymph % (Auto) 18.8, [place] % (Auto) 8.4, Eos % (Auto) 4.2, Baso % (Auto) 1.1, Neut # (Auto) 4.1, Lymph # (Auto) 1.2, [place] # (Auto) 0.5, Eos # (Auto) 0.3, Baso # (Auto) 0.1, Sodium 143, Potassium 3.5, Chloride 105, Carbon Dioxide 35 H, Anion Gap 6.5, BUN 17 D, Creatinine 0.90, Estimated Creat Clear 37, Estimated GFR 62, Est GFR ( Amer) 75, Glucose 114 H, Calcium 8.7 I & O for Last 24 hours: Intake & Output 04/03/24 04/04/24 04/05/24 04/06/24 23:59 23:59 23:59 23:59 Intake Total 370 / 370 Output Total 0 / 0 Balance 370 / 370 Weight 42.184 kg 43.817 kg Microbiology Reports for the Last 24 Hours: Microbiology 04/05/24 17:05 Urine,Clean Catch Urine Culture - Preliminary Constitutional Constitutional: no acute distress *Routine HEENT Exam Head: Present normocephalic Eye: Present EOMI and PERRL ENT: Present mucous membranes moist *Routine Neck Exam Neck: Present supple; Absent lymphadenopathy *Routine Respiratory Exam Respiratory: Present CTA bilaterally *Routine Cardiovascular Exam Cardiovascular: Present RRR *Routine Abdominal Exam Abdominal: Present soft and normoactive bowel sounds; Absent tenderness *Routine Extremities Exam Extremities: Absent cyanosis, clubbing or edema *Routine Skin Exam Skin: Present warm; Absent rash *Routine Neurological Exam Neurological: Present alert and oriented X3 Assessment and Plan *Assessment and plan (1) Nausea: Status: Acute Category: Medical Code(s): R11.0 - Nausea (2) Acute UTI: Status: Acute Category: Medical Code(s): N39.0 - Urinary tract infection, site not specified (3) Paroxysmal atrial fibrillation: Problem Comment: Established with [facility] cardiology Status: Acute Category: Medical Code(s): I48.0 - Paroxysmal atrial fibrillation (4) CAD (coronary artery disease): Status: Chronic Qualifiers: Coronary Disease-Associated Artery/Lesion type: [place] artery [place] vs. transplanted heart: [place] heart Associated angina: without angina Qualified Code(s): I25.10 - Atherosclerotic heart disease of [place] coronary artery without angina pectoris Category: Medical Code(s): I25.10 - Atherosclerotic heart disease of [place] coronary artery without angina pectoris (5) PAD (peripheral artery disease): Status: Chronic Category: Medical Code(s): I73.9 - Peripheral vascular disease, unspecified (6) Hypertension: Status: Chronic Qualifiers: Hypertension type: primary hypertension Qualified Code(s): I10 - Essential (primary) hypertension Category: Medical Code(s): I10 - Essential (primary) hypertension Plan Patient is a 68-year-old female with past medical history of paroxysmal atrial fibrillation, ischemic cardiomyopathy, COPD, CAD, PAD who presents to the hospital due to complaints of lower abdominal pain, nausea. According to patient she has been feeling sick for the past few days, she has not been improving, she also had frequent ED visits for the same complaint, she complains of burning urination. In the emergency department patient was evaluated for urinary tract infection which did show questionable UTI. Assessment and plan Lower abdominal pain, nausea likely due to UTI CT abdomen pelvis was performed 2 days ago, negative for acute pathology in abdomen and pelvis ? Suprapubic tenderness. UA very suggestive of UTI. ? Continue ceftriaxone day 2/5. ? Follow-up urine cultures. #Physical deconditioning ? Patient states she feels a little bit better today, but upon ambulation patient was very weak. She lives at home by herself, and daughter visits. She states she is normally able to ambulate by herself with a walker. ? Patient discharged with home health with PT/OT last month. ? PT/OT consulted, pending recommendations. Chronic medical conditions CAD PAD Paroxysmal atrial fibrillation Hypertension Hyperlipidemia COPD on 3L NC at home Resume home Eliquis, lisinopril, DuoNeb as needed, atorvastatin, Plavix, Neurontin, metoprolol, Aldactone DVT prophylaxis-on Eliquis
[2024-04-06] MEDS: HYDROCODONE/APAP 5/325 MG TABLET 1 TAB PO (19:58)
[2024-04-06 20:00] VITALS: BP 168/70; PULSE 78; RESP 18; TEMP 36.9; O2SAT 98
[2024-04-06] MEDS: ATORVASTATIN 10MG TABLET 10 MG PO (20:00)
[2024-04-07 03:51] VITALS: BP 121/54; PULSE 74; RESP 16; TEMP 36.8; O2SAT 99; BMI 17.6
[2024-04-07 06:53] LABS: Basophils # 0.1 K/mm3 (0-0.2); Basophils % 1.1 % (0.1-2.0); Eosinophils # 0.5 K/mm3 (0.0-0.4); Eosinophils % 9.4 % (0.1-12.0); Hematocrit 30.6 % (37.0-47.0); Lymphocytes # 1.2 K/mm3 (0.7-4.5); Lymphocytes % 22.8 % (10-50); Mean Corpuscular HGB Conc 32.6 g/dL (31.8-35.4); Mean Corpuscular Hemoglobin 30.1 pg (27.0-31.2); Mean Corpuscular Volume 92.3 fl (81-99); Mean Platelet Volume 10.3 fl (7.4-10.4); Monocytes # 0.5 K/mm3 (0.1-1.0); Monocytes % 8.5 % (1.7-9.3); Neutrophils # 3.1 K/mm3 (1.8-7.8); Neutrophils % 58.2 % (37.0-80.0); Platelet Count 187 K/mm3 (142-424); Red Blood Count 3.31 M/mm3 (4.20-5.40); Red Cell Distribution Width 12.4 % (11.5-17.5); White Blood Count 5.4 K/mm3 (4.8-10.8)
[2024-04-07 07:02] LABS: Anion Gap 2.3 mEq/L (5-15); Blood Urea Nitrogen 21 mg/dl (7-17); Calcium 8.8 mg/dl (8.4-10.2); Carbon Dioxide 36 mmol/L (22.0-30.0); Chloride 106 mmol/L (98-107); Creatinine Clearance Estimated 30 mL/min (50-200); Estimated Glomerular Filt Rate 45 ml/min (>60); GFR (African American) 54 ML/MIN (>60); Glucose 90 mg/dl (74-100); Potassium 4.3 mmoL/L (3.5-5.1); Sodium 140 mmol/L (136-145)
[2024-04-07 08:00] VITALS: BP 111/45; PULSE 69; RESP 18; TEMP 36.7; O2SAT 97
[2024-04-07] MEDS: PANTOPRAZOLE 40MG TABLET 40 MG PO (09:11)
[2024-04-07] MEDS: GABAPENTIN 600MG TABLET 600 MG PO (09:11)
[2024-04-07] MEDS: CLOPIDOGREL 75MG TAB 75 MG PO (09:11)
[2024-04-07] MEDS: APIXABAN 5MG TABLET 2.5 MG PO (09:11)
[2024-04-07] MEDS: LISINOPRIL 5MG TABLET 5 MG PO (09:11)
[2024-04-07] MEDS: METOPROLOL SUCCINATE XL 25MG TABLET 25 MG PO (09:11)
[2024-04-07] MEDS: CITALOPRAM 20MG TABLET 20 MG PO (09:11)
[2024-04-07] MEDS: clonazePAM 1MG TABLET 1 MG PO (09:12)
[2024-04-07] MEDS: 0.9 % SODIUM CHLORIDE 1000ML 500 ML IV (09:12)
--- NOTE | 2024-04-07 13:56 | EXP.DC.SUM ---
General Admission date:: 04/05/24 HPI HPI HPI: Patient is a 68-year-old female with past medical history of paroxysmal atrial fibrillation, ischemic cardiomyopathy, COPD, CAD, PAD who presents to the hospital due to complaints of lower abdominal pain, nausea. According to patient she has been feeling sick for the past few days, she has not been improving, she also had frequent ED visits for the same complaint, she complains of burning urination. In the emergency department patient was evaluated for urinary tract infection which did show questionable UTI. Hospital Course Hospital Course Hospital Course: Patient is a 68-year-old female with past medical history of paroxysmal atrial fibrillation, ischemic cardiomyopathy, COPD, CAD, PAD who presents to the hospital due to complaints of lower abdominal pain, nausea. According to patient she has been feeling sick for the past few days, she has not been improving, she also had frequent ED visits for the same complaint, she complains of burning urination. In the emergency department patient was evaluated for urinary tract infection which did show questionable UTI. Lower abdominal pain, nausea likely due to UTI CT abdomen pelvis was performed 2 days ago, negative for acute pathology in abdomen and pelvis ? UA very suggestive of UTI. - Improved with ceftriaxone. Urine culture growing gram-positive cocci probably Staph saprophyticus, improved with ceftriaxone. Will discharge with cefdinir and wait on urine culture speciation after discharge. #Physical deconditioning ? Patient discharged with home health with PT/OT last month. Back to her baseline. Continue home health with PT. However, I did speak to daughter over the phone and she stated she and the patient are planning transitioning to hospice care. Chronic medical conditions CAD PAD Paroxysmal atrial fibrillation Hypertension Hyperlipidemia COPD on 3L NC at home - Resume home Eliquis, lisinopril, DuoNeb as needed, atorvastatin, Plavix, Neurontin, metoprolol, Aldactone Exam Data for Last 24 hours Vital signs and Labs for Last 24 Hours: Temp Pulse Resp BP Pulse Ox O2 Del Method O2 Flow Rate 98.1 F 69 18 111/45 L 97 Nasal Cannula 3 04/07/24 08:00 04/07/24 08:00 04/07/24 08:00 04/07/24 08:00 04/07/24 08:00 04/07/24 11:00 04/07/24 11:00 Laboratory Results - last 24 hr 04/05/24 17:05: Urine Color Yellow, Urine Appearance Clear, Urine pH 7.0, Ur Specific [place] 1.020, Urine Protein 2+ A, Urine Glucose (UA) Negative, Urine Ketones Trace, Urine Blood 2+ A, Urine Nitrate Negative, Urine Bilirubin Negative, Urine Urobilinogen 0.2, Ur Leukocyte Esterase 1+ A, Urine RBC 10-20, Urine WBC Tntc, Ur Squamous Epith Cells 5-10, Urine Bacteria 3+, Urine Mucus 2+ 04/07/24 06:42: WBC 5.4, RBC 3.31 L, Hgb 10.0 L, Hct 30.6 L, MCV 92.3, MCH 30.1, MCHC 32.6, RDW 12.4, Plt Count 187, MPV 10.3, Neut % (Auto) 58.2, Lymph % (Auto) 22.8, [place] % (Auto) 8.5, Eos % (Auto) 9.4, Baso % (Auto) 1.1, Neut # (Auto) 3.1, Lymph # (Auto) 1.2, [place] # (Auto) 0.5, Eos # (Auto) 0.5 H, Baso # (Auto) 0.1, Sodium 140, Potassium 4.3 D, Chloride 106, Carbon Dioxide 36 H, Anion Gap 2.3 L, BUN 21 H, Creatinine 1.20 H D, Estimated Creat Clear 30, Estimated GFR 45 L, Est GFR ( Amer) 54 L D, Glucose 90, Calcium 8.8 I & O for Last 24 hours: Intake & Output 04/04/24 04/05/24 04/06/24 04/07/24 23:59 23:59 23:59 22:59 Intake Total 780 / 780 240 / 240 Output Total 0 / 0 Balance 780 / 780 240 / 240 Weight 42.184 kg 43.817 kg 43.636 kg Microbiology Reports for the Last 24 Hours: Microbiology 04/05/24 17:05 Urine,Clean Catch Urine Culture - Preliminary Gram Positive Cocci Constitutional Constitutional: no acute distress *Routine HEENT Exam Head: Present normocephalic Eye: Present EOMI and PERRL ENT: Present mucous membranes moist *Routine Neck Exam Neck: Present supple; Absent lymphadenopathy *Routine Respiratory Exam Respiratory: Present CTA bilaterally *Routine Cardiovascular Exam Cardiovascular: Present RRR *Routine Abdominal Exam Abdominal: Present soft and normoactive bowel sounds; Absent tenderness *Routine Extremities Exam Extremities: Absent cyanosis, clubbing or edema *Routine Skin Exam Skin: Present warm; Absent rash *Routine Neurological Exam Neurological: Present alert and oriented X3 Results Data Completed and Pending Labs on day of discharge: Labs from last 24 hours 04/07/24 04/05/24 06:42 17:05 WBC 5.4 RBC 3.31 L Hgb 10.0 L Hct 30.6 L MCV 92.3 MCH 30.1 MCHC 32.6 RDW 12.4 Plt Count 187 MPV 10.3 Neut % (Auto) 58.2 Lymph % (Auto) 22.8 [place] % (Auto) 8.5 Eos % (Auto) 9.4 Baso % (Auto) 1.1 Neut # (Auto) 3.1 Lymph # (Auto) 1.2 [place] # (Auto) 0.5 Eos # (Auto) 0.5 H Baso # (Auto) 0.1 Sodium 140 Potassium 4.3 D Chloride 106 Carbon Dioxide 36 H Anion Gap 2.3 L BUN 21 H Creatinine 1.20 H D Estimated Creat Clear 30 Estimated GFR 45 L Est GFR ( Amer) 54 L D Glucose 90 Calcium 8.8 Urine Color Yellow Urine Appearance Clear Urine pH 7.0 Ur Specific [place] 1.020 Urine Protein 2+ A Urine Glucose (UA) Negative Urine Ketones Trace Urine Blood 2+ A Urine Nitrate Negative Urine Bilirubin Negative Urine Urobilinogen 0.2 Ur Leukocyte Esterase 1+ A Urine RBC 10-20 Urine WBC Tntc Ur Squamous Epith Cells 5-10 Urine Bacteria 3+ Urine Mucus 2+ Preliminary micro results at discharge 04/05/24 17:05 Urine Culture - Preliminary Urine,Clean Catch Gram Positive Cocci DS: Diagnosis Discharge Diagnosis (1) Paroxysmal atrial fibrillation: Status: Acute Code(s): I48.0 - Paroxysmal atrial fibrillation Problem details: Established with [facility] cardiology (2) CAD (coronary artery disease): Status: Chronic Code(s): I25.10 - Atherosclerotic heart disease of [place] coronary artery without angina pectoris Qualifiers: Associated angina: without angina Coronary Disease-Associated Artery/Lesion type: [place] artery [place] vs. transplanted heart: [place] heart Qualified Code(s): I25.10 - Atherosclerotic heart disease of [place] coronary artery without angina pectoris (3) PAD (peripheral artery disease): Status: Chronic Code(s): I73.9 - Peripheral vascular disease, unspecified (4) Hypertension: Status: Chronic Code(s): I10 - Essential (primary) hypertension Qualifiers: Hypertension type: primary hypertension Qualified Code(s): I10 - Essential (primary) hypertension Meds Home Medications and Allergies Home Medications ?Medication ?Instructions ?Recorded ?Confirmed ?Type albuterol sulfate 90 mcg/actuation 2 puff inhalation Q4HP PRN 02/28/24 04/06/24 Rx aerosol inhaler Shortness Of Breath #8.5 grams clopidogrel 75 mg tablet 75 mg PO DAILY #90 tabs 02/28/24 04/06/24 Rx gabapentin 600 mg tablet 600 mg PO BID #60 tabs 02/28/24 04/06/24 Rx metoprolol succinate 25 mg 25 mg PO DAILY #90 tabs 02/28/24 04/06/24 Rx tablet,extended release 24 hr pantoprazole 40 mg tablet,delayed 40 mg PO DAILY #90 tabs 02/28/24 04/06/24 Rx release calcium carbonate 1,200 mg (2 x 600 mg calcium 03/02/24 04/06/24 Rx (1,500 mg)) PO DAILY #180 tabs cholecalciferol (vitamin D3) 1,250 1,250 mcg PO WEEKLY #12 caps 03/02/24 04/06/24 Rx mcg (50,000 unit) capsule aluminum-mag hydroxide-simethicone 5 ml PO Q3HP PRN Indigestion 03/10/24 04/06/24 History 200 mg-200 mg-20 mg/5 mL oral susp (Maalox Advanced) apixaban 2.5 mg tablet (Eliquis) 2.5 mg PO BID 03/10/24 04/06/24 History clonazepam 1 mg tablet 1 mg PO BID #60 tabs 03/28/24 04/06/24 Rx metoclopramide HCl 10 mg tablet 10 mg PO Q6H PRN nausea and 04/05/24 Rx (Reglan) vomiting #10 tabs atorvastatin 10 mg tablet 10 mg PO HS 04/06/24 04/06/24 History citalopram 20 mg tablet 20 mg PO DAILY 04/06/24 04/06/24 History fluticasone fur. 100 mcg-umeclid 1 inh inhalation DAILY 04/06/24 04/06/24 History 62.5 mcg-vilant 25 mcg inhalat.powder (Trelegy Ellipta) lisinopril 5 mg tablet 5 mg PO DAILY 04/06/24 04/06/24 History ondansetron 4 mg disintegrating 4 mg PO Q6HP PRN nausea and 04/06/24 04/06/24 History tablet vomiting polyethylene glycol 3350 17 gram 17 g PO DAILYP PRN constipation 04/06/24 04/06/24 History oral powder packet (Miralax) spironolactone 25 mg tablet 25 mg PO DAILY 04/06/24 04/06/24 History cefdinir 300 mg capsule 300 mg PO BID 4 days #8 caps 04/07/24 Rx New Prescriptions to Start Prescriptions: Cameron Craft metoclopramide HCl [Reglan] Nitza Basilio Allergies Allergy/AdvReac Type Severity Reaction Status Date / Time levofloxacin Allergy Intermediate blisters Verified 03/20/24 13:48 in mouth, diarrhea Sulfa (Sulfonamide Allergy Unknown Verified 03/20/24 13:48 Antibiotics) Discharge Plan Disposition Patient Disposition: Home, Self-Care Condition: Fair Follow up Plan Prescriptions/Medication Reconciliation: New metoclopramide HCl [Reglan] 10 mg tablet 10 mg PO Q6H PRN (Reason: nausea and vomiting) Qty: 10 0RF cefdinir 300 mg capsule 300 mg PO BID 4 Days Qty: 8 0RF Continued albuterol sulfate 90 mcg/actuation HFA aerosol inhaler 2 puff INHALATION Q4HP PRN (Reason: Shortness Of Breath) Qty: 8.5 2RF clopidogrel 75 mg tablet 75 mg PO DAILY Qty: 90 3RF gabapentin 600 mg tablet 600 mg PO BID Qty: 60 0RF metoprolol succinate 25 mg tablet extended release 24 hr 25 mg PO DAILY Qty: 90 3RF pantoprazole 40 mg tablet,delayed release (DR/EC) 40 mg PO DAILY Qty: 90 1RF calcium carbonate 600 mg calcium (1,500 mg) tablet 1,200 mg PO DAILY Qty: 180 3RF cholecalciferol (vitamin D3) 1,250 mcg (50,000 unit) capsule 1,250 mcg PO WEEKLY Qty: 12 1RF clonazepam 1 mg tablet 1 mg PO BID Qty: 60 0RF alum-mag hydroxide-simeth [Maalox Advanced] 200-200-20 mg/5 mL Suspension 5 ml PO Q3HP PRN (Reason: Indigestion) Eliquis 2.5 mg tablet 2.5 mg PO BID Patient Comments: TAKE ONE TABLET BY MOUTH TWICE DAILY polyethylene glycol 3350 [Miralax] 17 gram powder in packet 17 g PO DAILYP PRN (Reason: constipation ) citalopram 20 mg tablet 20 mg PO DAILY Patient Comments: TAKE ONE TABLET BY MOUTH EVERY DAY lisinopril 5 mg tablet 5 mg PO DAILY Patient Comments: TAKE ONE TABLET BY MOUTH EVERY DAY atorvastatin 10 mg tablet 10 mg PO HS ondansetron 4 mg tablet,disintegrating 4 mg PO Q6HP PRN (Reason: nausea and vomiting) Trelegy Ellipta 100-62.5-25 mcg blister with device 1 inh INHALATION DAILY Patient Comments: INHALE 1 PUFF BY MOUTH EVERY DAY DIRECTED Held spironolactone 25 mg tablet 25 mg PO DAILY Hold Instructions: Resume on 04/21/24. Your blood pressures have been stable without this medication. You may resume if your blood pressures are consistently above 150/90 at home. Patient Comments: TAKE ONE TABLET BY MOUTH EVERY DAY Discontinued meclizine 25 mg tablet 25 mg PO DAILY Patient Comments: TAKE ONE TABLET BY MOUTH THREE TIMES DAILY NEEDED FOR dizziness Jardiance 10 mg tablet 10 mg PO DAILY Patient Comments: TAKE ONE TABLET BY MOUTH DAILY Problem Reconciliation Problems Reviewed?: Yes Patient Discharge Instructions Patient Instructions: DI for Urinary Tract Infection (UTI), DI for Nausea -- Adult Print Language: [place] Providers Primary Care Provider: Provider,Referral Admit Provider: Cameron Larson Attending Provider: Cameron Larson
[2024-04-07] MEDS: cefTRIAXone 1GM VIAL 1 GM IM (14:18)
--- NOTE | 2024-04-07 14:57 | PC.NURSE ---
attempted to contact pt family regarding d/c orders. no answer after attempting twice.
--- NOTE | 2024-04-08 14:32 | CARE MANAGER ---
Contacted patient's daughter. She states her mom is not feeling well and is sleeping a lot, but denies questions or concerns. Aware of follow up appointments. CHRISTINE Perla
== END 2024-04-07 16:47 | disposition home or self-care (01) ==
LOC: ER 20:03 → 2ND 20:53
PROVIDERS: Internal Medicine; Admitting Provider Student in an Organized Health Care Education/Training Program; Emergency Provider Emergency Medicine; Visit Provider Student in an Organized Health Care Education/Training Program
DX: R11.0 Nausea (principal); N39.0 Urinary tract infection, site not specified; I48.0 Paroxysmal atrial fibrillation; I25.10 Atherosclerotic heart disease of native coronary artery without angina pectoris; I73.9 Peripheral vascular disease, unspecified; I10 Essential (primary) hypertension; E55.9 Vitamin D deficiency, unspecified; Z99.81 Dependence on supplemental oxygen; I25.5 Ischemic cardiomyopathy; Z79.899 Other long term (current) drug therapy; J44.9 Chronic obstructive pulmonary disease, unspecified; Z60.2 Problems related to living alone
CPT/HCPCS: 36415; 80048; 80053; 81001; 83605; 83690; 84484; 85025; 87086; 87088; 93005; 99285; G0378; J0696; J1885; J2405; J2765; J7030

== ENCOUNTER 2024-04-09 03:13 | Emergency (ER) | payer MEDICARE, SELFPAY ==
[2024-04-09] VITALS (7 sets, daily range): BP systolic 138–208; BP diastolic 64–84; PULSE 70–89; RESP 22–27; TEMP 36.5; O2SAT 98–100; BMI 16.5
--- NOTE | 2024-04-09 03:09 | ECG_ITS ---
APPROVED REPORT Exam: Resting ECG HR:82 bpm ECG Measurements Heart Rate 82 AXES NM 147 P 81 QRSd 79 QRS 82 QT 382 T 58 QTc 421 Conclusion SINUS RHYTHM NONSPECIFIC ST & T-WAVE ABNORMALITY No STEMI Electronically signed by : SKYLER SAWANT, 04/09/2024 06:45:11
--- NOTE | 2024-04-09 03:13 | PC.NURSE ---
Dr. Bridges at bedside
[2024-04-09 03:25] LABS: Lactate Venous 0.9 mmol/L (0.4-2.0); VBG Base Excess 2.9 mmol/L (-2.4-2.3); VBG HCO3 28.5 mmol/L (23-30); VBG Oxygen Saturation 71.9 % (50-70); VBG PH 7.35 mmol/L (7.31-7.41); VBG Total CO2 30.1 mmol/L (23-27)
--- NOTE | 2024-04-09 03:25 | XR_ITS ---
PROCEDURE INFORMATION: Exam: XR Chest Exam date and time: 04/09/2024 3:25 AM Age: 68 years old Clinical indication: Shortness of breath; Additional info: SOA TECHNIQUE: Imaging protocol: Radiologic exam of the chest. Views: 2 views. COMPARISON: CT CHEST W CON 04/03/2024 8:06 PM FINDINGS: Lungs: Hyperinflation. No consolidation. Pleural spaces: Unremarkable. No pleural effusion. No pneumothorax. Heart/Mediastinum: Unremarkable. No cardiomegaly. Bones/joints: Unremarkable. IMPRESSION: No acute findings.
[2024-04-09 03:26] LABS: VBG PCO2 52.6 mmol/L (35-51)
[2024-04-09 03:33] LABS: Basophils # 0.1 K/mm3 (0-0.2); Basophils % 1.1 % (0.1-2.0); Eosinophils # 0.4 K/mm3 (0.0-0.4); Eosinophils % 8.4 % (0.1-12.0); Hematocrit 30.2 % (37.0-47.0); Hemoglobin 10.1 g/dL (12.2-16.2); Lymphocytes # 1.2 K/mm3 (0.7-4.5); Lymphocytes % 23.5 % (10-50); Mean Corpuscular HGB Conc 33.5 g/dL (31.8-35.4); Mean Corpuscular Hemoglobin 30.5 pg (27.0-31.2); Mean Corpuscular Volume 90.9 fl (81-99); Mean Platelet Volume 9.5 fl (7.4-10.4); Monocytes # 0.3 K/mm3 (0.1-1.0); Monocytes % 6.1 % (1.7-9.3); Neutrophils # 3.1 K/mm3 (1.8-7.8); Neutrophils % 60.8 % (37.0-80.0); Platelet Count 152 K/mm3 (142-424); Red Blood Count 3.32 M/mm3 (4.20-5.40); Red Cell Distribution Width 12.6 % (11.5-17.5); White Blood Count 5.1 K/mm3 (4.8-10.8)
[2024-04-09 03:38] LABS: Alanine Aminotransferase 11 U/L (12-78); Albumin Level 3.5 g/dl (3.5-5.0); Albumin/Globulin Ratio 1.3 (1.1-1.8); Alkaline Phosphatase 80 U/L (38-126); Anion Gap 2.5 mEq/L (5-15); Aspartate Amino Transferase 21 U/L (14-36); Bilirubin,Total 0.5 mg/dl (0.2-1.3); Blood Urea Nitrogen 14 mg/dl (7-17); Calcium 9.1 mg/dl (8.4-10.2); Carbon Dioxide 33 mmol/L (22.0-30.0); Chloride 105 mmol/L (98-107); Creatinine Clearance Estimated 35 mL/min (50-200); Estimated Glomerular Filt Rate 83 ml/min (>60); GFR (African American) 100 ML/MIN (>60); Globulin 2.8 g/dL (1.3-3.2); Glucose 91 mg/dl (74-100); Potassium 3.5 mmoL/L (3.5-5.1); Sodium 137 mmol/L (136-145); Total Protein,Serum 6.3 g/dl (6.3-8.2)
--- NOTE | 2024-04-09 03:38 | [facility].EDCP ---
Discharge Plan Disposition Patient Disposition: Home, Self-Care Condition: Good Prescriptions Prescriptions: No Action albuterol sulfate 90 mcg/actuation HFA aerosol inhaler 2 puff INHALATION Q4HP PRN (Reason: Shortness Of Breath) Qty: 8.5 2RF clopidogrel 75 mg tablet 75 mg PO DAILY Qty: 90 3RF gabapentin 600 mg tablet 600 mg PO BID Qty: 60 0RF metoprolol succinate 25 mg tablet extended release 24 hr 25 mg PO DAILY Qty: 90 3RF pantoprazole 40 mg tablet,delayed release (DR/EC) 40 mg PO DAILY Qty: 90 1RF calcium carbonate 600 mg calcium (1,500 mg) tablet 1,200 mg PO DAILY Qty: 180 3RF cholecalciferol (vitamin D3) 1,250 mcg (50,000 unit) capsule 1,250 mcg PO WEEKLY Qty: 12 1RF clonazepam 1 mg tablet 1 mg PO BID Qty: 60 0RF alum-mag hydroxide-simeth [Maalox Advanced] 200-200-20 mg/5 mL Suspension 5 ml PO Q3HP PRN (Reason: Indigestion) Eliquis 2.5 mg tablet 2.5 mg PO BID Patient Comments: TAKE ONE TABLET BY MOUTH TWICE DAILY metoclopramide HCl [Reglan] 10 mg tablet 10 mg PO Q6H PRN (Reason: nausea and vomiting) Qty: 10 0RF polyethylene glycol 3350 [Miralax] 17 gram powder in packet 17 g PO DAILYP PRN (Reason: constipation ) spironolactone 25 mg tablet 25 mg PO DAILY Patient Comments: TAKE ONE TABLET BY MOUTH EVERY DAY citalopram 20 mg tablet 20 mg PO DAILY Patient Comments: TAKE ONE TABLET BY MOUTH EVERY DAY lisinopril 5 mg tablet 5 mg PO DAILY Patient Comments: TAKE ONE TABLET BY MOUTH EVERY DAY atorvastatin 10 mg tablet 10 mg PO HS ondansetron 4 mg tablet,disintegrating 4 mg PO Q6HP PRN (Reason: nausea and vomiting) Trelegy Ellipta 100-62.5-25 mcg blister with device 1 inh INHALATION DAILY Patient Comments: INHALE 1 PUFF BY MOUTH EVERY DAY DIRECTED cefdinir 300 mg capsule 300 mg PO BID 4 Days Qty: 8 0RF Referrals Follow up/Referrals: Provider,Referral, MD [Referring] - See instructions Activity Restrictions/Add. Instructions Additional Instructions/Restrictions: You were evaluated in the ER and are appropriate for discharge at this time. Continue taking your home medications as prescribed. You received your daily dose of metoprolol in the ER. You do not have to take this medication today, 04/09/2024. Resume this medication tomorrow, 04/10/2024. Follow-up with your primary care doctor in 2 to 3 days for reevaluation. Return to the ER with new, worsening, or otherwise concerning symptoms Clinical Impressions Clinical Impression: Mild shortness of breath, Nausea Print Language Print Language: Green[place]ic Discharge ED Provider: Yousuf Bridges General Chief Complaint: Shortness of Breath/Dyspnea Stated Complaint: SOA Time Seen by Provider: 04/09/24 03:25 Mode of Arrival: EMS Source of Information: Patient, EMS and Medical Record Limitations: No Limitations Description of Symptoms (Recalled from ER Triage Doc. by RN): Pt brought in by EMS with concerns for SOA after arguing with her family memeber. Pt wears home O2 @ 3LPM [place] all the time. Se does still smoke. She also was recently admitted to Med/Surg (04/05-04/07) for a UTI. P History of Present Illness HPI narrative: 68-year-old female with history of COPD, CAD, hypertension presents to the ER for complaints of shortness of breath. Patient wears home oxygen at 3 L nasal cannula and does smoke. She states she was just released from the hospital after a UTI. Patient reports she is not having any fevers, no cough, no chest pain, no nausea, vomiting, or diarrhea. Patient reports she was laying flat when she was feeling short of breath and now that she is seated more upright she feels improved. Patient is saturating well on her home 3 L nasal cannula. EMS administered DuoNeb prior to arrival, patient reports she did not feel significant improvement from this. Patient reports she does not take any Lasix, my review of medications demonstrates she has a previous prescription for spironolactone however this medication is currently held. Related Data Home Medications ?Medication ?Instructions ?Recorded ?Confirmed aluminum-mag hydroxide-simethicone 5 ml PO Q3HP PRN Indigestion 03/10/24 04/06/24 200 mg-200 mg-20 mg/5 mL oral susp (Maalox Advanced) apixaban 2.5 mg tablet (Eliquis) 2.5 mg PO BID 03/10/24 04/06/24 atorvastatin 10 mg tablet 10 mg PO HS 04/06/24 04/06/24 citalopram 20 mg tablet 20 mg PO DAILY 04/06/24 04/06/24 fluticasone fur. 100 mcg-umeclid 1 inh inhalation DAILY 04/06/24 04/06/24 62.5 mcg-vilant 25 mcg inhalat.powder (Trelegy Ellipta) lisinopril 5 mg tablet 5 mg PO DAILY 04/06/24 04/06/24 ondansetron 4 mg disintegrating 4 mg PO Q6HP PRN nausea and 04/06/24 04/06/24 tablet vomiting polyethylene glycol 3350 17 gram 17 g PO DAILYP PRN constipation 04/06/24 04/06/24 oral powder packet (Miralax) spironolactone 25 mg tablet 25 mg PO DAILY 04/06/24 04/06/24 Previous Rx's ?Medication ?Instructions ?Recorded albuterol sulfate 90 mcg/actuation 2 puff inhalation Q4HP PRN 02/28/24 aerosol inhaler Shortness Of Breath #8.5 grams clopidogrel 75 mg tablet 75 mg PO DAILY #90 tabs 02/28/24 gabapentin 600 mg tablet 600 mg PO BID #60 tabs 02/28/24 metoprolol succinate 25 mg 25 mg PO DAILY #90 tabs 02/28/24 tablet,extended release 24 hr pantoprazole 40 mg tablet,delayed 40 mg PO DAILY #90 tabs 02/28/24 release calcium carbonate 1,200 mg (2 x 600 mg calcium 03/02/24 (1,500 mg)) PO DAILY #180 tabs cholecalciferol (vitamin D3) 1,250 1,250 mcg PO WEEKLY #12 caps 03/02/24 mcg (50,000 unit) capsule clonazepam 1 mg tablet 1 mg PO BID #60 tabs 03/28/24 metoclopramide HCl 10 mg tablet 10 mg PO Q6H PRN nausea and 04/05/24 (Reglan) vomiting #10 tabs cefdinir 300 mg capsule 300 mg PO BID 4 days #8 caps 04/07/24 Allergies Allergy/AdvReac Type Severity Reaction Status Date / Time levofloxacin Allergy Intermediate blisters Verified 03/20/24 13:48 in mouth, diarrhea Sulfa (Sulfonamide Allergy Unknown Verified 03/20/24 13:48 Antibiotics) [facility] Disclaimer: The information contained in this section may have been updated after the patient was seen, as this information can be updated by other users. Medical History Foraminal stenosis of cervical region Facet arthropathy, cervical Degenerative disc disease, cervical Impingement syndrome of right shoulder Chronic pain syndrome Osteopenia Chronic abdominal pain Constipation Chronic GERD Memory loss Cerebral ventriculomegaly Insomnia Paroxysmal atrial fibrillation with rapid ventricular response Anxiety Acute exacerbation of chronic obstructive pulmonary disease Acute hypoxic respiratory failure Acute cystitis Suprapubic abdominal pain Nausea Gastritis Nausea Nausea Cough Vitamin D deficiency Pneumonia Decreased muscle strength Unsteady gait Respiratory failure with hypoxia and hypercapnia COPD exacerbation Encounter for screening for malignant neoplasm of lung Family history of asthma COPD mixed type Smoking greater than 30 pack years SOB (shortness of breath) on exertion Chronic respiratory failure with hypoxia Presence of arterial stent H/O Hampton's palsy Sinus tachycardia Hypertrophic obstructive cardiomyopathy Hampton's palsy Depression PTSD (post-traumatic stress disorder) Chronic pain COPD exacerbation Pulmonary nodule CAD (coronary artery disease) HLD (hyperlipidemia) PAD (peripheral artery disease) HTN (hypertension) Anxiety Lung nodule seen on imaging study Surgical History Appendicolith S/P peripheral artery angioplasty with stent placement Family History Other Family history of hypertension Social History (Updated 04/05/24 @ 21:25 by Ena Rosas RN) Smoking Status: Current every day smoker tobacco type: cigarettes packs per day: 1 second hand exposure: No alcohol intake: never substance use type: denies use current occupational status: retired Travel in the last 8 weeks: None household members: children and none housing: house lives independently: No Other Medical History Have you received the Flu Vaccine for this season: No Have you received the Pneumonia Vaccine: No ROS Obtained: Yes Systems reviewed as appropriate & no additional complaints except as documented ROS per HPI Physical Exam General General appearance: alert and in no apparent distress Comment: Thin, chronically ill-appearing Head Head exam: atraumatic and normocephalic Eye Eye exam: Present PERRL and EOMI ENT ENT exam: Present mucous membranes moist Neck Neck exam: Present normal inspection and full ROM Chest Chest inspection: Present symmetric chest wall rise Respiratory Respiratory exam: Absent normal lung sounds bilaterally (Mild rales at bilateral bases), respiratory distress, wheezes or stridor Cardiovascular Cardiovascular exam: Present regular rate and normal rhythm Abdominal Exam Abdominal exam: Present soft; Absent distention or tenderness Extremities Exam Extremities exam: Present full ROM Neurological Exam Neurological exam: Present alert and oriented X3; Absent motor sensory deficit Psychiatric Psychiatric exam: Present normal affect and normal mood Skin Skin exam: Present warm and dry HEART Score HEART Score HEART Score assessment performed?: Yes History (anamnesis): Slightly suspicious ECG: Non-specific disturbance Age: >65 years Risk factors: Atherosclerosis history Troponin: </= normal limit HEART Score: 5 Critical Care Critical Care Time Critical Care Time: No Medical Decision Making Medical Records Medical records reviewed: Yes I reviewed the patient's medical records. MR Comment: Discharge summary from 04/07/2024 was personally reviewed, patient's spironolactone was held because patient's blood pressure had been stable throughout but it was recommended that she resume this medication on 04/21/2024 or if her blood pressure was above 150/90 consistently at home. She was discharged on Reglan and cefdinir. [place] Inquiry Pt receiving controlled substance: No Vital Signs Vital Signs: 04/09/24 03:13 04/09/24 04:00 04/09/24 04:08 Temperature 97.7 F Temperature Source Oral Pulse Rate 79 Pulse Rate [Right] 89 Respiratory Rate 26 H 27 H Blood Pressure 181/82 H 181/82 H Blood Pressure [Right Arm] 208/84 H Blood Pressure Mean 128 Blood Pressure Mean [Right Arm] 125 Blood Pressure Source [Right Arm] Automatic Cuff 02 Sat by Pulse Oximetry 98 100 Oxygen Delivery Method Nasal Cannula Aerosol Mask Oxygen Flow Rate (LPM) 3 3 04/09/24 04:10 04/09/24 04:15 Temperature Temperature Source Pulse Rate 77 70 Pulse Rate [Right] Respiratory Rate 24 26 H Blood Pressure 138/64 165/83 H Blood Pressure [Right Arm] Blood Pressure Mean 110 Blood Pressure Mean [Right Arm] Blood Pressure Source [Right Arm] 02 Sat by Pulse Oximetry 100 100 Oxygen Delivery Method Aerosol Mask Aerosol Mask Oxygen Flow Rate (LPM) Lab Data Labs: Lab Results 04/09/24 03:10: WBC 5.1, RBC 3.32 L, Hgb 10.1 L, Hct 30.2 L, MCV 90.9, MCH 30.5, MCHC 33.5, RDW 12.6, Plt Count 152, MPV 9.5, Neut % (Auto) 60.8, Lymph % (Auto) 23.5, [place] % (Auto) 6.1, Eos % (Auto) 8.4, Baso % (Auto) 1.1, Neut # (Auto) 3.1, Lymph # (Auto) 1.2, [place] # (Auto) 0.3, Eos # (Auto) 0.4, Baso # (Auto) 0.1, Sodium 137, Potassium 3.5, Chloride 105, Carbon Dioxide 33 H, Anion Gap 2.5 L, BUN 14 D, Creatinine 0.70 D, Estimated Creat Clear 35, Estimated GFR 83, Est GFR ( Amer) 100 D, Glucose 91, Calcium 9.1, Total Bilirubin 0.5, AST 21, ALT 11 L, Alkaline Phosphatase 80, Troponin I < 0.01, NT-Pro-B Natriuret Pep 401 H, Total Protein 6.3, Albumin 3.5, Globulin 2.8, Albumin/Globulin Ratio 1.3 04/09/24 03:24: VBG pH 7.35, VBG pCO2 52.6 H, VBG pO2 37.0, VBG HCO3 28.5, VBG Total CO2 30.1 H, VBG O2 Saturation 71.9 H, VBG Base Excess 2.9 H, VBG Lactic Acid 0.9 04/09/24 03:10 04/09/24 03:10 Response Orders (Tests/Meds): ED MEDICATIONS Discontinued Medications Generic Name Dose Route Start Last Admin Trade Name Freq PRN Reason Stop Dose Admin Albuterol/Ipratropium 3 ml 04/09/24 03:26 04/09/24 04:13 Ipratropium/Albuterol 3 Ml Neb IH 04/09/24 03:27 3 ml ONCE ONE Administration Labetalol HCl 10 mg 04/09/24 03:41 04/09/24 04:08 Labetalol 20mg/4ml Syringe IV 04/09/24 03:42 10 mg ONCE ONE Administration Metoprolol Succinate 25 mg 04/09/24 03:59 Metoprolol Succinate Xl 25mg Tablet PO 04/09/24 04:00 ONCE ONE Ondansetron HCl 4 mg 04/09/24 04:00 04/09/24 04:08 Ondansetron 4mg/2ml Vial IV 04/09/24 04:01 4 mg ONCE ONE Administration ORDERS Category Date Time Status CXR 2 view (NOT portable) [XR chest 2V] Stat Exams 04/09/24 03:25 Completed BNP [NT Pro Brain Natriuretic Pep.] Stat Lab 04/09/24 03:10 Completed CBC w/Auto Diff [Complete Blood Count Auto Diff] Stat Lab 04/09/24 03:10 Completed CMP [Comprehensive Metabolic Panel] Stat Lab 04/09/24 03:10 Completed Trop I [Troponin I] Stat Lab 04/09/24 03:10 Completed Troponin I Q3H Lab 04/09/24 06:30 Ordered Troponin I Q3H Lab 04/09/24 09:30 Ordered VBG [Venous Blood Gas] Stat RT 04/09/24 03:25 Ordered Venous Blood Gas Routine RT 04/09/24 03:24 Completed ECG Request Stat Y 04/09/24 03:25 Ordered MDM Narrative Medical Decision Narrative: In summary, this 68-year-old female with comorbidities as described in HPI presents to the emergency department today with shortness of breath. On initial evaluation patient is hypertensive but otherwise hemodynamically stable, afebrile, lungs clear bilaterally, no peripheral edema, no abdominal tenderness, remainder of exam benign. Differential diagnosis includes but is not limited to COPD exacerbation, pneumonia, I considered the possibility of fluid overload, hypertensive urgency/emergency, anxiety, ACS, viral syndrome. Based on these concerns, I ordered serum labs, chest x-ray, cardiac workup. ECG personally interpreted demonstrates normal sinus rhythm, rate 82, normal axis, normal CA and QTc, no STEMI. Patient received DuoNeb, IV labetalol for treatment. Labs personally reviewed demonstrate no leukocytosis, stable anemia, VBG with normal pH, mild hypercarbia, lactic normal, CMP nonactionable, there are findings of improving kidney function, troponin undetectably low less than 0.01, BNP still elevated but improved from previous. XR personally interpreted demonstrates no lobar infiltrate, no overt pulmonary edema, no pneumothorax. See radiology read for final interpretation Patient's daughter present at bedside and stated patient had been complaining of nausea which has been a chronic complaint of hers for many days. She states she is taking her metoclopramide as prescribed. Patient admitted to me she did not take her antihypertensives yesterday. She responded well to the IV labetalol, oral metoprolol has also been administered. Spironolactone is still being held per the recommendations from hospitalist. She received Zofran for complaints of nausea. On further reassessment she is resting more comfortably, cardiopulmonary exam overall relatively unchanged though her blood pressure is improved. She is breathing comfortably. She is not complaining of shortness of breath. She is tolerating oral intake. She is appropriate for discharge at this time. I do not believe serial troponin is indicated since patient did not have chest pain, has low heart score and reassuring ECG, and symptoms onset a few hours ago. I instructed patient and daughter at bedside on continued use of home medications including metoprolol, spironolactone, and her home prescription antinausea medications. Patient was given instructions on symptomatic management, follow up instructions, and return precautions for the emergency department. Patient indicated understanding and was discharged in stable condition.
--- NOTE | 2024-04-09 03:39 | PC.NURSE ---
Pt back from xray
[2024-04-09 03:50] LABS: NT Pro Brain Natriuretic Pep. 401 pg/mL (0-125)
[2024-04-09] MEDS: LABETALOL 20MG/4ML SYRINGE 10 MG IV (04:08)
[2024-04-09] MEDS: ONDANSETRON 4MG/2ML VIAL 4 MG IV (04:08)
[2024-04-09] MEDS: IPRATROPIUM/ALBUTEROL 3 ML NEB IH (04:13)
[2024-04-09 04:14] LABS: Troponin I < 0.01 ng/ml (0.00-0.034)
[2024-04-09] MEDS: METOPROLOL SUCCINATE XL 25MG TABLET 25 MG PO (05:02)
== END 2024-04-09 05:19 | disposition home or self-care (01) ==
PROVIDERS: Emergency Provider Emergency Medicine; PCP Nurse Practitioner Family
DX: R06.02 Shortness of breath (principal); R11.0 Nausea; R06.00 Dyspnea, unspecified
CPT/HCPCS: 71046; 80053; 82803; 83880; 84484; 85025; 93005; 96374; 96375; 99284; J1920; J2405; J7620

== ENCOUNTER 2024-04-10 11:32 | Emergency (ER) | payer MEDICARE, SELFPAY ==
[2024-04-10 11:32] VITALS: BP 183/94; PULSE 96; RESP 19; TEMP 36.9; O2SAT 98; BMI 19.1
[2024-04-10 12:00] VITALS: BP 172/81; PULSE 89; O2SAT 99
--- NOTE | 2024-04-10 12:15 | XR_ITS ---
PROCEDURE INFORMATION: Exam: XR Chest Exam date and time: 04/10/2024 12:24 PM Age: 68 years old Clinical indication: Shortness of breath; Additional info: SOA TECHNIQUE: Imaging protocol: Radiologic exam of the chest. Views: 1 view. Total images: 1 COMPARISON: CR XR CHEST 2V 04/09/2024 3:25 AM FINDINGS: Lungs: Bilateral hyperinflation is present. Atelectatic changes noted within both lung bases. Pleural spaces: Unremarkable. No pleural effusion. No pneumothorax. Heart/Mediastinum: The heart is not enlarged. Vasculature: Mild atherosclerotic disease. Bones/joints: The thoracic spine demonstrates mild degenerative changes at multiple levels. IMPRESSION: 1. Bilateral hyperinflation is present. 2. Atelectatic changes noted within both lung bases.
[2024-04-10 12:19] LABS: Basophils % 0.8 % (0.1-2.0); Eosinophils # 0.3 K/mm3 (0.0-0.4); Hematocrit 30.4 % (37.0-47.0); Hemoglobin 10.5 g/dL (12.2-16.2); Lymphocytes # 1.3 K/mm3 (0.7-4.5); Lymphocytes % 24.2 % (10-50); Mean Corpuscular HGB Conc 34.5 g/dL (31.8-35.4); Mean Corpuscular Hemoglobin 31.3 pg (27.0-31.2); Mean Corpuscular Volume 90.6 fl (81-99); Mean Platelet Volume 9.6 fl (7.4-10.4); Monocytes # 0.3 K/mm3 (0.1-1.0); Monocytes % 5.9 % (1.7-9.3); Neutrophils # 3.4 K/mm3 (1.8-7.8); Platelet Count 160 K/mm3 (142-424); Red Blood Count 3.35 M/mm3 (4.20-5.40); Red Cell Distribution Width 12.5 % (11.5-17.5); White Blood Count 5.3 K/mm3 (4.8-10.8)
[2024-04-10 12:20] LABS: Alanine Aminotransferase 12 U/L (12-78); Albumin Level 3.7 g/dl (3.5-5.0); Albumin/Globulin Ratio 1.2 (1.1-1.8); Alkaline Phosphatase 87 U/L (38-126); Aspartate Amino Transferase 23 U/L (14-36); Bilirubin,Total 0.5 mg/dl (0.2-1.3); Blood Urea Nitrogen 10 mg/dl (7-17); Calcium 9.2 mg/dl (8.4-10.2); Carbon Dioxide 34 mmol/L (22.0-30.0); Chloride 105 mmol/L (98-107); Creatinine Clearance Estimated 44 mL/min (50-200); Estimated Glomerular Filt Rate 71 ml/min (>60); GFR (African American) 86 ML/MIN (>60); Glucose 95 mg/dl (74-100); Sodium 140 mmol/L (136-145); Total Protein,Serum 6.7 g/dl (6.3-8.2)
[2024-04-10 12:31] VITALS: BP 148/74; PULSE 85; O2SAT 97
[2024-04-10 12:49] VITALS: BP 165/85; PULSE 62; O2SAT 97
[2024-04-10 13:33] VITALS: BP 165/85; PULSE 85; RESP 20; TEMP 36.8; O2SAT 97
--- NOTE | 2024-04-10 13:48 | HMH.EDGENADL ---
Discharge Plan Disposition Patient Disposition: Home, Self-Care Condition: Good Prescriptions Prescriptions: No Action albuterol sulfate 90 mcg/actuation HFA aerosol inhaler 2 puff INHALATION Q4HP PRN (Reason: Shortness Of Breath) Qty: 8.5 2RF clopidogrel 75 mg tablet 75 mg PO DAILY Qty: 90 3RF gabapentin 600 mg tablet 600 mg PO BID Qty: 60 0RF metoprolol succinate 25 mg tablet extended release 24 hr 25 mg PO DAILY Qty: 90 3RF pantoprazole 40 mg tablet,delayed release (DR/EC) 40 mg PO DAILY Qty: 90 1RF calcium carbonate 600 mg calcium (1,500 mg) tablet 1,200 mg PO DAILY Qty: 180 3RF cholecalciferol (vitamin D3) 1,250 mcg (50,000 unit) capsule 1,250 mcg PO WEEKLY Qty: 12 1RF clonazepam 1 mg tablet 1 mg PO BID Qty: 60 0RF alum-mag hydroxide-simeth [Maalox Advanced] 200-200-20 mg/5 mL Suspension 5 ml PO Q3HP PRN (Reason: Indigestion) Eliquis 2.5 mg tablet 2.5 mg PO BID Patient Comments: TAKE ONE TABLET BY MOUTH TWICE DAILY metoclopramide HCl [Reglan] 10 mg tablet 10 mg PO Q6H PRN (Reason: nausea and vomiting) Qty: 10 0RF polyethylene glycol 3350 [Miralax] 17 gram powder in packet 17 g PO DAILYP PRN (Reason: constipation ) spironolactone 25 mg tablet 25 mg PO DAILY Patient Comments: TAKE ONE TABLET BY MOUTH EVERY DAY citalopram 20 mg tablet 20 mg PO DAILY Patient Comments: TAKE ONE TABLET BY MOUTH EVERY DAY lisinopril 5 mg tablet 5 mg PO DAILY Patient Comments: TAKE ONE TABLET BY MOUTH EVERY DAY atorvastatin 10 mg tablet 10 mg PO HS ondansetron 4 mg tablet,disintegrating 4 mg PO Q6HP PRN (Reason: nausea and vomiting) Trelegy Ellipta 100-62.5-25 mcg blister with device 1 inh INHALATION DAILY Patient Comments: INHALE 1 PUFF BY MOUTH EVERY DAY DIRECTED cefdinir 300 mg capsule 300 mg PO BID 4 Days Qty: 8 0RF Referrals Follow up/Referrals: Provider,Referral, MD [Primary Care Provider] - See instructions Activity Restrictions/Add. Instructions Additional Instructions/Restrictions: You were evaluated in the emergency department today. Please make sure that your oxygen stays connected. Do not use long tubing. Follow-up closely with your primary care provider. Return to the emergency department for new or worsening symptoms. Clinical Impressions Clinical Impression: Chronic hypoxic respiratory failure Instructions Patient Instructions: DI for Chronic Obstructive Pulmonary Disease Print Language Print Language: [place] Discharge ED Provider: Nitza Basilio General Adult HPI General Chief complaint: Shortness of Breath/Dyspnea Stated complaint: Shortness of breath Time Seen by Provider: 04/10/24 11:35 Mode of Arrival: EMS Source of Information: Patient and EMS Limitations: No Limitations Description of Symptoms (Recalled from ER Triage Doc. by RN): pt presents to ED with c/o shortness of breath. upon ems arrival pts home oxygen was turned off. pt wears 3L NC baseline. pt received 1 duoneb in route and feels better History of Present Illness HPI narrative: This patient is a 68-year-old female with a history of chronic respiratory failure well-known to the emergency department presenting to the emergency department for evaluation by EMS with concern for shortness of breath. Patient notes that she called EMS because she was feeling short of breath. EMS notes that when they got to her house, her oxygen was disconnected. Admittedly after reconnecting her to oxygen, she was feeling a lot better. She denies any concerns or complaints at this time stating that now that she is connected oxygen, she feels great. She received 1 DuoNeb en route. Related Data Home Medications ?Medication ?Instructions ?Recorded ?Confirmed aluminum-mag hydroxide-simethicone 5 ml PO Q3HP PRN Indigestion 03/10/24 04/06/24 200 mg-200 mg-20 mg/5 mL oral susp (Maalox Advanced) apixaban 2.5 mg tablet (Eliquis) 2.5 mg PO BID 03/10/24 04/06/24 atorvastatin 10 mg tablet 10 mg PO HS 04/06/24 04/06/24 citalopram 20 mg tablet 20 mg PO DAILY 04/06/24 04/06/24 fluticasone fur. 100 mcg-umeclid 1 inh inhalation DAILY 04/06/24 04/06/24 62.5 mcg-vilant 25 mcg inhalat.powder (Trelegy Ellipta) lisinopril 5 mg tablet 5 mg PO DAILY 04/06/24 04/06/24 ondansetron 4 mg disintegrating 4 mg PO Q6HP PRN nausea and 04/06/24 04/06/24 tablet vomiting polyethylene glycol 3350 17 gram 17 g PO DAILYP PRN constipation 04/06/24 04/06/24 oral powder packet (Miralax) spironolactone 25 mg tablet 25 mg PO DAILY 04/06/24 04/06/24 Previous Rx's ?Medication ?Instructions ?Recorded albuterol sulfate 90 mcg/actuation 2 puff inhalation Q4HP PRN 02/28/24 aerosol inhaler Shortness Of Breath #8.5 grams clopidogrel 75 mg tablet 75 mg PO DAILY #90 tabs 02/28/24 gabapentin 600 mg tablet 600 mg PO BID #60 tabs 02/28/24 metoprolol succinate 25 mg 25 mg PO DAILY #90 tabs 02/28/24 tablet,extended release 24 hr pantoprazole 40 mg tablet,delayed 40 mg PO DAILY #90 tabs 02/28/24 release calcium carbonate 1,200 mg (2 x 600 mg calcium 03/02/24 (1,500 mg)) PO DAILY #180 tabs cholecalciferol (vitamin D3) 1,250 1,250 mcg PO WEEKLY #12 caps 03/02/24 mcg (50,000 unit) capsule clonazepam 1 mg tablet 1 mg PO BID #60 tabs 03/28/24 metoclopramide HCl 10 mg tablet 10 mg PO Q6H PRN nausea and 04/05/24 (Reglan) vomiting #10 tabs cefdinir 300 mg capsule 300 mg PO BID 4 days #8 caps 04/07/24 Allergies Allergy/AdvReac Type Severity Reaction Status Date / Time levofloxacin Allergy Intermediate blisters Verified 03/20/24 13:48 in mouth, diarrhea Sulfa (Sulfonamide Allergy Unknown Verified 03/20/24 13:48 Antibiotics) [facility] Disclaimer: The information contained in this section may have been updated after the patient was seen, as this information can be updated by other users. Medical History Foraminal stenosis of cervical region Facet arthropathy, cervical Degenerative disc disease, cervical Impingement syndrome of right shoulder Chronic pain syndrome Osteopenia Chronic abdominal pain Constipation Chronic GERD Memory loss Cerebral ventriculomegaly Insomnia Paroxysmal atrial fibrillation with rapid ventricular response Anxiety Acute exacerbation of chronic obstructive pulmonary disease Acute hypoxic respiratory failure Acute cystitis Suprapubic abdominal pain Nausea Gastritis Nausea Nausea Cough Vitamin D deficiency Pneumonia Decreased muscle strength Unsteady gait Respiratory failure with hypoxia and hypercapnia COPD exacerbation Encounter for screening for malignant neoplasm of lung Family history of asthma COPD mixed type Smoking greater than 30 pack years SOB (shortness of breath) on exertion Chronic respiratory failure with hypoxia Presence of arterial stent H/O Hampton's palsy Sinus tachycardia Hypertrophic obstructive cardiomyopathy Hampton's palsy Depression PTSD (post-traumatic stress disorder) Chronic pain COPD exacerbation Pulmonary nodule CAD (coronary artery disease) HLD (hyperlipidemia) PAD (peripheral artery disease) HTN (hypertension) Anxiety Lung nodule seen on imaging study Surgical History Appendicolith S/P peripheral artery angioplasty with stent placement Family History Other Family history of hypertension Social History Smoking Status: Former smoker tobacco type: cigarettes packs per day: 1 second hand exposure: No alcohol intake: never substance use type: denies use current occupational status: retired Travel in the last 8 weeks: None household members: children and none housing: house lives independently: No Other Medical History Have you received the Flu Vaccine for this season: No Have you received the Pneumonia Vaccine: No ROS Obtained: Yes All systems reviewed & no additional complaints except as documented Physical Exam General General appearance: alert and in no apparent distress Head Head exam: atraumatic and normocephalic Eye Eye exam: Present normal appearance, PERRL and EOMI ENT ENT exam: Present normal exam, normal oropharynx, mucous membranes moist and normal external ear exam Neck Neck exam: Present normal inspection, full ROM and trachea midline; Absent tenderness Chest Chest inspection: Present normal inspection and symmetric chest wall rise; Absent tenderness Respiratory Respiratory exam: Present normal lung sounds bilaterally; Absent respiratory distress, wheezes, stridor or accessory muscle use Cardiovascular Cardiovascular exam: Present regular rate and normal rhythm Abdominal Exam Abdominal exam: Present soft; Absent distention, tenderness or guarding Extremities Exam Extremities exam: Present normal inspection, full ROM and normal capillary refill; Absent tenderness or edema Back Exam Back exam: Present normal inspection and full ROM; Absent tenderness Neurological Exam Neurological exam: Present alert, oriented X3, CN II-XII intact and normal gait; Absent motor sensory deficit Psychiatric Psychiatric exam: Present normal affect and normal mood Skin Skin exam: Present warm and dry Medical Decision Making Medical Records Medical records reviewed: Yes I reviewed the patient's medical records. Screening: Per USPSTF and CDC recommendations, given the prevalence of disease in our region, it is our hospital?s policy to screen for HIV and viral Hepatitis for all patients aged 18 and over and those with ongoing risk factors. [place] Inquiry Pt receiving controlled substance: No Vital Signs: 04/10/24 11:32 04/10/24 12:00 04/10/24 12:31 Temperature 98.4 F Temperature Source Oral Pulse Rate 89 85 Pulse Rate [Left Radial] 96 H Respiratory Rate 19 Blood Pressure 172/81 H 148/74 H Blood Pressure [Right Arm] 183/94 H Blood Pressure Mean 98 Blood Pressure Mean [Right Arm] 123 02 Sat by Pulse Oximetry 98 99 97 Oxygen Delivery Method Nasal Cannula Nasal Cannula Nasal Cannula Oxygen Flow Rate (LPM) 3 3 3 04/10/24 12:49 04/10/24 13:33 Temperature 98.2 F Temperature Source Pulse Rate 62 85 Pulse Rate [Left Radial] Respiratory Rate 20 Blood Pressure 165/85 H 165/85 H Blood Pressure [Right Arm] Blood Pressure Mean Blood Pressure Mean [Right Arm] 02 Sat by Pulse Oximetry 97 Oxygen Delivery Method Nasal Cannula Room Air Oxygen Flow Rate (LPM) 3 Lab Data Lab results reviewed: Yes I reviewed the patient's lab results. Lab Results 04/10/24 11:25: WBC 5.3, RBC 3.35 L, Hgb 10.5 L, Hct 30.4 L, MCV 90.6, MCH 31.3 H, MCHC 34.5, RDW 12.5, Plt Count 160, MPV 9.6, Neut % (Auto) 64.0, Lymph % (Auto) 24.2, [place] % (Auto) 5.9, Eos % (Auto) 5.0, Baso % (Auto) 0.8, Neut # (Auto) 3.4, Lymph # (Auto) 1.3, [place] # (Auto) 0.3, Eos # (Auto) 0.3, Baso # (Auto) 0.0, Sodium 140, Potassium 4.0, Chloride 105, Carbon Dioxide 34 H, Anion Gap 5.0, BUN 10 D, Creatinine 0.80, Estimated Creat Clear 44, Estimated GFR 71, Est GFR ( Amer) 86, Glucose 95, Calcium 9.2, Total Bilirubin 0.5, AST 23, ALT 12, Alkaline Phosphatase 87, Total Protein 6.7, Albumin 3.7, Globulin 3.0, Albumin/Globulin Ratio 1.2 04/10/24 11:25 04/10/24 11:25 Orders (Tests/Meds): ORDERS Category Date Time Status CXR --portable [XR chest portable] Stat Exams 04/10/24 12:15 Completed CMP [Comprehensive Metabolic Panel] Stat Lab 04/10/24 11:25 Completed Complete Blood Count Auto Diff Stat Lab 04/10/24 11:25 Completed Medical Decision Narrative: In summary, this patient is a 68-year-old female presenting to the Emergency Department for evaluation of shortness of breath that started when her oxygen became disconnected at home. Has resolved since being reconnected back to her 3 L nasal cannula that she wears at baseline. Differential diagnoses considered include but are not limited to acute on chronic respiratory failure, COPD exacerbation, pneumonia. Ruling out the most morbid conditions drove assessment. It should be noted patient's history includes COPD which is not at goal therapy. This complicates all aspects of care by increasing patient's risk for morbidity. I reviewed patient's past medical records and noted previous evaluations over the last several weeks for various complaints. On exam, the patient is lying in bed in no acute distress with reassuring vital signs on cardiac telemetry. Cardiopulmonary exam is reassuring. She has no increased work of breathing. Workup included basic lab evaluation including CBC and CMP as well as chest x-ray, and chest x-ray is not concerning for any acute pneumonia or consolidation. Labs are also reassuring. Given the patient's symptoms resolved once she was hooked back up to supplemental oxygen, I feel she likely was only short of breath because it became disconnected. Ultimately at this time, I feel that she is appropriate for discharge home. Strict return precautions were given as well as instructions for close follow-up. Patient was discharged after all questions were answered Critical Care Critical Care Time Critical Care Time: No
== END 2024-04-10 13:34 | disposition home or self-care (01) ==
PROVIDERS: Emergency Provider Emergency Medicine
DX: R06.02 Shortness of breath (principal)
CPT/HCPCS: 71045; 80053; 85025; 99283